=== PATIENT | female | born 1970 | race Caucasian/White ===

== ENCOUNTER → 2016-07-11 | Outpatient (CLI) | payer BC ==
--- NOTE | 2016-07-12 08:41 | REP ---
MR CERVICAL SPINE WITHOUT CONTRAST: HISTORY: Neck pain. A disc bulge is present at the C3-4 level. There is mild effacement of the thecal sac without spinal cord compression. The C3 neural foramina are patent. A small central disc protrusion is present at the C4-5 level. There is minimal effacement of the thecal sac without spinal cord compression. The C4 neural foramina are patent. A disc bulge and small left paracentral disc protrusion with associated osteophyte formation are present at the C5-6 level. There is minimal spinal cord compression. Uncinate process hypertrophy is present on the left. There is moderate narrowing of the left C5 neural foramen. The right C5 neural foramen is patent. A disc bulge and small left paracentral disc protrusion with associated osteophyte formation are present at the C6-7 level. There is minimal spinal cord compression. Bilateral uncinate process hypertrophy is present. This produces minimal and moderate narrowing of the right and left C6 neural foramina respectfully. There is no other disc bulge or herniation. The remaining neural foramina are patent. The spinal cord is normal in signal intensity. There is no intradural extramedullary lesion. The C5-6 and C6-7 intervertebral discs are decreased in height consistent with disc degeneration. Normal signal intensity is present in the cervical vertebral bodies. There is loss of a normal lordotic curve. IMPRESSION: There is cervical spondylosis at the C3-4 through C6-7 levels most significant at the C5-6 and C6-7 levels where there is minimal spinal cord compression. Signed by Terrence Nicole MD 07/12/2016 08:35 A
== END ==
LOC: M RAD 17:33
PROVIDERS: ATTEND Physician Assistant Surgical
DX: M47.22 Other spondylosis with radiculopathy, cervical region (principal)
CPT/HCPCS: 72156; A9576

== ENCOUNTER → 2016-08-22 | Outpatient (CLI) | payer BC ==
--- NOTE | 2016-08-22 11:37 | REP ---
Chest two views HISTORY: Cervical stenosis Comparison: 12/22/2015 The lungs are clear. The heart is normal in size. The pulmonary vasculature is normal in appearance. The bony structure is intact. IMPRESSION: No acute disease. Signed by Terrence Nicole MD 08/22/2016 11:29 A
== END ==
LOC: M RAD 11:07
PROVIDERS: ATTEND Orthopaedic Surgery
DX: Z01.818 Encounter for other preprocedural examination (principal); M48.02 Spinal stenosis, cervical region

== ENCOUNTER → 2016-08-24 | Outpatient (REF) | payer BC ==
[~2016-08-24] MED LIST: ASPI1TAB24 PO; CYCL10TA PO; DIFL200T PO; FISH120012 PO; HYDR200T3 PO; MONT10TA2 PO; NIFE10CA2 PO; OMEP40CA2 PO; RANI1TAB6 PO; SULF500T2 PO
[2016-08-24 17:34] LABS: INR 0.95
[2016-08-24 18:02] LABS: ALBUMIN 3.4 GM/DL (3.2-5.2); ALBUMIN/GLOBULIN RATIO 0.92 (1.00-1.93); ALKALINE PHOSPHATASE 84 U/L (45-117); ALT/SGPT 41 U/L (12-78); ANION GAP 7 MEQ/L (8-16); AST/SGOT 17 U/L (15-37); BILIRUBIN,TOTAL 0.3 MG/DL (0.2-1.0); BLOOD UREA NITROGEN 17 MG/DL (7-18); CALCIUM LEVEL 8.9 MG/DL (8.5-10.1); CARBON DIOXIDE LEVEL 27 MEQ/L (21-32); CHLORIDE LEVEL 108 MEQ/L (98-107); CREATININE FOR GFR 0.84 MG/DL (0.55-1.02); GLOMERULAR FILTRATION RATE > 60.0 (>58); GLUCOSE, FASTING 101 MG/DL (70-105); POTASSIUM SERUM 4.1 MEQ/L (3.5-5.1); SODIUM LEVEL 142 MEQ/L (136-145); TOTAL PROTEIN 7.1 GM/DL (6.4-8.2)
[2016-08-24 18:29] LABS: BASO % 0.5 % (0.0-1.0); EOS # 0.3 K/mm3 (0.0-0.50); EOS % 2.9 % (0.0-3.0); LARGE UNSTAINED CELL # 0.2 K/mm3 (0.0-0.4); LARGE UNSTAINED CELL % 1.9 % (0.0-4.0); LYMPH # 2.6 K/mm3 (1.5-4.5); LYMPH % 27.8 % (24.0-44.0); MEAN CORPUSCULAR HEMOGLOBIN 28.8 pg (27.0-33.0); MEAN CORPUSCULAR HGB CONC 31.4 g/dl (32.0-36.5); MEAN CORPUSCULAR VOLUME 91.6 fl (80.0-96.0); MONO # 0.5 K/mm3 (0.0-0.8); MONO % 5.4 % (0.0-5.0); NEUTROPHILS # 5.8 K/mm3 (1.8-7.7); NEUTROPHILS % 61.5 % (36.0-66.0); PLATELET COUNT, AUTOMATED 393 k/mm3 (150-450); RED CELL DISTRIBUTION WIDTH 13.5 % (11.5-14.5); WHITE BLOOD COUNT 9.4 K/mm3 (4.0-10.0)
== END ==
LOC: M SFHCPLAZ 15:36
PROVIDERS: ATTEND Family Medicine
DX: J45.30 Mild persistent asthma, uncomplicated (principal)

== ENCOUNTER 2016-09-11 05:44 | Inpatient (IN) | payer BC ==
--- NOTE | 2016-09-07 17:55 | HPE ---
DATE OF ADMISSION: 09/11/2016 ATTENDING PHYSICIAN: Dr. Kurt Rg ADMISSION DIAGNOSIS: Neck pain and pain radiating to her left upper extremity. HISTORY: This is a pleasant 46-year-old female patient with progressively worsening neck pain and pain radiating to her left upper extremity. She has failed to improve with conservative management to include anti-inflammatories, rest, activity modification and physical therapy. She continues to have symptoms with normal day-to-day activities. She has elected for surgery for her continued symptoms. She has consented for an anterior cervical decompression and fusion C5-6 and C6-[address] Rg. MRI is consistent with a left-sided stenosis at C5-6 and C6-7. X-rays notable for degenerative changes at C5-6 and C6-7. Medical optimization Dr. Mckeon. ALLERGIES: PENICILLIN. She also has cross sensitivity to CEPHALOSPORINS. CURRENT MEDICATIONS: - Singulair 10 mg one tablet once per day - aspirin 81 mg, she will discontinue that 5 days prior to surgery - Flonase 50 mcg one spray in each nostril as needed - Proventil 90 mcg as needed for shortness of breath - Advair 250/50 mcg one puff twice per day - Prilosec 40 mg once per day - Zantac 300 mg one tablet at bedtime - gabapentin 300 mg one tablet twice a day - fluconazole 100 mg two tablets once per week Medical conditions include cervical spinal stenosis, left upper extremity radiculopathy, seasonal allergies, gastric reflux disease. SOCIAL HISTORY: She does not smoke. 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 She uses alcohol on occasional basis. FAMILY HISTORY: Noncontributory. REVIEW OF SYSTEMS: Denies fever or chills. Denies chest pain, shortness of breath or cough. Denies difficulty breathing. Denies abdominal pain. Denies nausea or vomiting. Denies recent upper respiratory infection (URI) or urinary tract infection (UTI) symptoms. Notes persistent pain in her neck and radiates into her left upper extremity. Denies nausea or vomiting. Denies change in her bowel or bladder habits. PHYSICAL EXAMINATION: Today: Reveals an alert, well-nourished, well-developed female patient. She walks with a normal gait. Her gait is not wide-based. She does not use assistive devices. Her mood and affect are appropriate for situation. Spurling's is positive with increased symptoms to the left upper extremity. Neck is supple without adenopathy or jugular venous distention (JVD). There is some diffuse tenderness along the left lateral border on examination today. Deep tendon reflexes are 2 at the biceps bilaterally, 1 at the right triceps, trace at the left triceps, trace at the right brachial radialis, 2 at the left brachial radialis. Lungs are clear to auscultation without rales or wheeze. Heart regular rate and rhythm. Abdomen: Bowel sounds are present. Current vital signs: Height 5.7, weight 317 pounds, body mass index (BMI) 46.5, temperature 98.0, blood pressure 110/84, pulse 78, respirations 16. LABORATORY DATA: WBC count 9.4, hemoglobin 13.2, hematocrit 42.1, glucose 101, BUN 17, creatinine 0.64, sodium 142, potassium 4.1, PT 12.6, INR 0.96. Chest x-ray, no acute cardiopulmonary disease process noted. EKG has sinus tachycardia. IMPRESSION: Cervical spinal stenosis C5-6, C6-7 as well as left upper extremity radiculopathy that are symptomatic. PLAN: Consented for an anterior cervical decompression and fusion C5-6 and C6-7 using VG2 graft SKYLINE plate. We will use clindamycin 600 mg IV concession worker to the operating room (OR) due to her penicillin reaction and her cross sensitivity to cephalosporins.
[~2016-09-11] VITALS: Ht 172.7 cm; Wt 144.0 kg
[2016-09-11] MEDS ORDERED: CLINDAMYCIN 600 MG in APPROPRIATE DILUENT 1 EA IV ONE (06:00)
[2016-09-11] MEDS ORDERED: LR 1,000 ML IV SCH ×3 (06:00→12:00)
[2016-09-11] MEDS ORDERED: PERCOCET 5MG/325MG TAB PO ONE (06:00)
[2016-09-11] MEDS ORDERED: THROMBIN SOLN 20,000 UNITS KIT As Ordered ONE (07:10)
[2016-09-11] MEDS ORDERED: BUPIVACAINE/EPIN 0.25% 30 ML VIAL As Ordered ONE (07:10)
[2016-09-11] MEDS ORDERED: methylPREDNISolone 500 MG VIAL (J2930) As Ordered ONE (07:10)
[2016-09-11] MEDS ORDERED: LIDOCAINE W/EPINEPHRINE 1% 20ML VIAL As Ordered ONE (07:10)
[2016-09-11] MEDS ORDERED: BACITRACIN PWD 50,000 UNITS VIAL As Ordered ONE ×2 (07:11→07:19)
[2016-09-11] MEDS ORDERED: MIDAZOLAM INJ 2 MG/2 ML VIAL (J2250) As Ordered ONE (08:58)
[2016-09-11] MEDS ORDERED: LIDOCAINE 2% INJ 100 MG/5 ML SDV (FOR ANES.) As Ordered ONE (08:58)
[2016-09-11] MEDS ORDERED: fentaNYL 250 MCG/5 ML INJECTION (J3010) As Ordered ONE (08:58)
[2016-09-11] MEDS ORDERED: dexameTHASONE 4 MG/ML 1ML VIAL (J1100) As Ordered ONE (08:58)
[2016-09-11] MEDS ORDERED: ROCURONIUM BROMIDE 50 MG/5 ML VIAL As Ordered ONE (08:59)
[2016-09-11] MEDS ORDERED: PROPOFOL 200 MG/20 ML VIAL As Ordered ONE ×2 (08:59→10:53)
[2016-09-11] MEDS ORDERED: NEOSTIGMINE 1MG/ML 5 ML SYRINGE (J2710) As Ordered ONE (08:59)
[2016-09-11] MEDS ORDERED: GLYCOPYRROLATE INJ 0.2 MG/ML 2 ML VIAL As Ordered ONE (08:59)
[2016-09-11] MEDS ORDERED: ONDANSETRON 4MG/2ML VIAL (J2405) As Ordered ONE (08:59)
[2016-09-11] MEDS ORDERED: PREGABALIN 75 MG CAP(LYRICA) PO SCH (09:00)
[2016-09-11] MEDS: DOCUSATE SODIUM 100 MG CAP PO SCH ×2 (09:00→20:18)
[2016-09-11] MEDS ORDERED: fentaNYL 100 MCG/2 ML INJECTION (J3010) As Ordered ONE (09:02)
[2016-09-11] MEDS ORDERED: HYDROmorphone HCL 2 MG/ML 1ML VIAL (J1170) As Ordered ONE (09:57)
[2016-09-11] MEDS ORDERED: ePHEDrine SULFATE 25 MG/5 ML(5MG/ML) SYRINGE As Ordered ONE (10:23)
[2016-09-11] MEDS ORDERED: METOCLOPRAMIDE INJ 10MG/2ML VIAL (J2765) As Ordered ONE (11:16)
--- NOTE | 2016-09-11 11:42 | REP ---
CERVICAL SPINE SERIES: THREE VIEWS. LIMITED STUDY. INTRAOPERATIVE FILMS. HISTORY: Cervical spondylosis. FINDINGS: A sequence of three intraoperative, portably-obtained cross-table lateral views of the cervical spine are presented time stamped 0901, 1042, and 1100 hours. The 0901 film demonstrates an orotracheal tube in place and an intraoperative probe at the level of the anterior margin of the C5-6 disc space. The 10:42 a.m. film shows the orotracheal tube. A ventral fusion plate is just barely visualized along the anterior to the C-spine at C5 to C6, although the caudal margin of the plate cannot be resolved due to penetration issues. The 11:00 a.m. film again demonstrates this fusion plate, again less than optimally. Signed by Baldemar Rosado MD 09/11/2016 11:52 A
[2016-09-11] MEDS ORDERED: METOCLOPRAMIDE INJ 10MG/2ML VIAL (J2765) IV PRN (12:00)
[2016-09-11] MEDS ORDERED: fentaNYL 100 MCG/2 ML INJECTION (J3010) IV PRN (12:00)
[2016-09-11] MEDS ORDERED: CLINDAMYCIN 600 MG in APPROPRIATE DILUENT 1 EA IV SCH (12:00)
[2016-09-11] MEDS ORDERED: PERCOCET 5MG/325MG TAB PO PRN ×3 (12:00→12:15)
[2016-09-11] MEDS ORDERED: HYDROmorphone HCL 1 MG/ML SYRINGE (J1170) IV PRN ×2 (12:00→12:15)
[2016-09-11] MEDS ORDERED: ONDANSETRON 4MG/2ML VIAL (J2405) IV PRN (12:00)
[2016-09-11] MEDS ORDERED: PROMETHAZINE INJ 25 MG/ML VIAL (J2550) IV PRN (12:15)
[2016-09-11] MEDS: D5W/LR 1,000 ML IV SCH ×2 (12:15→22:15)
--- NOTE | 2016-09-11 15:09 | REP ---
CERVICAL SPINE TWO VIEWS: 09/11/2016 CLINICAL HISTORY: Postoperative from C5 through C7 anterior cervical discectomy and fusion. COMPARISON: Intraoperative cross-table lateral earlier today. The portable view shows anterior plate and screws from C5 through C7. Alignment is normal. C4-5 and above disc spaces are intact. Signed by Fredy Pelaez MD 09/11/2016 05:21 P
[2016-09-11 15:30] VITALS: BP 141/71
[2016-09-11 16:00] VITALS: BP 136/71
[2016-09-11 17:00] VITALS: BP 143/82
[2016-09-11 18:00] VITALS: BP 124/58
[2016-09-11] MEDS: CLINDAMYCIN 600 MG in APPROPRIATE DILUENT 1 EA IV SCH ×3 (18:00→23:17)
--- NOTE | 2016-09-11 18:56 | REP ---
Cervical spine series: Three views: History: Postop evaluation. Comparison is made with films done earlier this date. Findings: The patient is status post ventral discectomy and fusion plating across the C5-6 and C6-7 disc spaces. Intervertebral disc grafts are seen at these two disc spaces. Alignment is normal with some straightening. Mild prevertebral soft tissue swelling is seen. Impression: Status post ventral discectomy and fusion plating C5 through C7. Signed by Baldemar Rosado MD 09/11/2016 07:38 P
[2016-09-11 19:00] VITALS: BP 134/74
[2016-09-11 20:00] VITALS: BP 143/73
[2016-09-11] MEDS: ASCORBIC ACID 500 MG TAB PO SCH (20:18)
[2016-09-12] VITALS: BP 140/76
[2016-09-12 04:00] VITALS: BP 143/65
[2016-09-12] MEDS ORDERED: IBUPROFEN 800 MG TAB PO PRN (07:00)
[2016-09-12] MEDS ORDERED: ACETAMINOPH W/CODEINE #3 TAB UD PO PRN (07:00)
[2016-09-12] MEDS: D5W/LR 1,000 ML IV SCH (08:15)
[2016-09-12] MEDS: DOCUSATE SODIUM 100 MG CAP PO SCH (09:20)
[2016-09-12] MEDS: ASCORBIC ACID 500 MG TAB PO SCH (09:20)
--- NOTE | 2016-09-13 07:13 | RO ---
DATE OF PROCEDURE: 09/11/2016 PREOPERATIVE DIAGNOSIS: Left upper extremity radiculopathy and axial neck discomfort secondary to degenerative bulging discs at C5-6 and C6-7. POSTOPERATIVE DIAGNOSIS: Left upper extremity radiculopathy and axial neck discomfort secondary to degenerative bulging discs at C5-6 and C6-7. PROCEDURE PERFORMED: Anterior cervical decompression and fusion procedure at C5-6 including end plate preparation decompression of thecal sac and exiting nerve root and application of graft material, anterior cervical decompression and fusion procedure at C6-7 additional level, use of donor structural allograft for spine surgery C5-6 and C6-7, application of anterior cervical instrumentation C5, C6, C7. SURGEON: Dr. Kurt Rg SCRUB WOMAN: Bala Soliz, HARMEET ANESTHESIA: General endotracheal. ESTIMATED BLOOD LOSS: Less than 40 mL replaced with crystalloid. No complications. INDICATIONS: Left upper extremity radiculopathy and neck pain, MRI evidence of spinal stenosis and left-sided disc bulges at C5-6 and C6-7. The patient has elected to proceed with surgery. Consent reviewed in detail including a lashell discussion of the procedure proposed, alternatives including doing nothing and risks including, but not limited to, pain, failure, paralysis, swallowing trouble, hoarseness, infection, need for more surgery and other issues. The patient agrees to proceed. COMPONENTS USED: Include DePuy [place] plate system 32 mm plate, 14 mm screws, VG2 structural allograft size 4 x 6 lordotic graft. OPERATIVE COURSE: Identified in the holding area. Site and side verified. Brought to the operating room. General endotracheal anesthesia was administered. She was positioned for exposure of the cervical spine for anterior cervical decompression and fusion. The approach was a right-sided approach. Positioning this patient took significant additional manpower and time since the patient's body mass index is significantly elevated. The incision was approximately three fingerbreadths long, outlined with a marking pen and infiltrated with 1/4% Marcaine with epinephrine once the yield clerk and I were comfortable with the patient's positioning and she was sterilely prepped and draped. Next, the procedure was accomplished using 3.5 loupe magnification and a headlamp. Mr. Phillips stood on the patient's left side. I stood on the patient's right side. The incision was made with a 10 blade and developed down through skin and subcuticular tissues to the platysma. The platysma was elevated and exposed and then divided perpendicular to its fibers allowing exposure of the sternocleidomastoid and omohyoid muscle. Bipolar cautery was utilized for hemostasis. The dissection continued. The omohyoid muscle was divided using the bipolar cautery as well as tenotomy scissor. Dissection continued. The carotid sheath was identified and protected. The dissection continued down to the prevertebral fascia which was elevated exposing the prevertebral area and longus coli muscles. Next, a bayonet spinal needle was placed at C5-6 to collins our position and a cross-table lateral was obtained to verify level. Next, C5-6 through C6-7 were further exposed elevating the medial border of the longus coli muscle. Distraction pins were placed across the C5-6 level and the Shadow-Line retractor was installed. The annulus was opened with an 11 blade knife. Disc material was removed. Dissection continued down to the posterior longitudinal ligament (PLL). Curved curettes were utilized to remove cartilaginous end plates and the oval bur was then utilized to debride endplate and through the uncinate processes down to the PLL. The end plate was squared. Next, I elevated the PLL with a 4.0 Dianna curette and then I removed PLL using #2 Kerrison punch. The left uncinate process was further debrided. The foraminotomy was accomplished on the left side. Next, irrigation was accomplished. Hemostasis was accomplished. Next, rasp 4 x 6 was utilized and then we placed a size 4 x 6 VG2 structural graft. It was tamped into place. Next, the 6-7 level was approached in a similar fashion including distraction pins and moving the traction inferiorly. The C6-7 level had a larger than expected disc extrusion with seemed to be subligamentous to the PLL. The PLL was removed at the C6-7 level as well. End plates were similarly prepared using the rasp, followed by placement of the 4 x 6 structural graft. Next, once this was accomplished, the intervertebral area was prepared. This included removing distraction pins, plugging holes with wax, contouring anterior osteophytes to receive the plate, application of the 32 mm plate, which was screwed and then drilled with 14 mm self-tapping screws. Next, the screws were locked into place. We obtained a cross-table lateral x-ray which only revealed the C5 level because of the patient's significant body habitus. We also later tried a lateral x-ray in the recovery room and again we were unable to get an adequate x-ray of the plate. Next, while still in the room, the wound was irrigated. We closed the platysma and deep dermis followed by Dermabond on skin. The patient was placed in a cervical collar and moved to the hospital bed moving all four extremities and moved to the recovery room. Again, we tried the second cross table lateral x-ray in the recovery room and were unable to get it there and planned on getting that x-ray in the department after the patient had been returned to the orthopedic floor. Next, the patient was noted to be moving all four extremities in the recovery room. For further details, please refer to the medical record. Please note, Mr. Phillips was present and participated in the entirety of the case.
--- NOTE | 2016-09-14 09:26 | DSES ---
DATE OF ADMISSION: 09/11/2016 DATE OF ADMISSION: 09/12/2016 ADMITTING DIAGNOSIS: Cervicalgia with left upper extremity radicular symptoms. HISTORY OF PRESENT ILLNESS: This is a pleasant female with continuing neck pain and left arm radicular symptoms. The patient has failed conservative management, which included nonsteroidal anti-inflammatory drugs, rest, activity modification and physiotherapy. The patient has elected for surgery secondary to these symptoms. She has consented for anterior cervical decompression and fusion at C5-6 and C6-[address] Kurt Rg. MRI imaging was consistent with left-sided stenosis at C5-C6 and C6-C7. Degenerative changes also noted at these levels. Medically, she was optimized by Dr. Mckeon. OPERATION PERFORMED: Anterior cervical decompression and fusion at C5-C6 including endplate preparation, decompression of the thecal sac and exiting nerve root with application of graft material, anterior cervical decompression and fusion at C6-7 level with use of donor structural allograft for spine surgery C5-C6, C6-C7, application of anterior cervical instrumentation C5, C6, C7. HOSPITAL COURSE: The patient underwent anterior cervical decompression and fusion under general anesthesia and was returned to recovery comfortable. Our hospital team felt comfortable discharging the patient on 09/12/2016 with the following instructions: 1. Bern J collar application and spine protocol per Dr. Kurt Rg. 2. No carrying or lifting in the upper extremities. 3. Thromboembolic deterrent (DELIO) stockings about the lower extremities. 4. Percocet as needed, pain. 5. Diet as regular. 6. The patient will followup in our office in 10-12 days' time for wound check and Monocryl suture removal. 7. The patient is encouraged to contact our office prior followup with increased pain, redness, drainage about the surgical site, numbness, tingling, weakness about the upper or lower extremities, fever greater than 101 or further concerns.
== END 2016-09-12 10:25 | disposition home or self-care (01) | DRG 321 ==
LOC: M OR 05:44 → M MS5PR 15:20
PROVIDERS: ADMIT Orthopaedic Surgery; ATTEND Orthopaedic Surgery
PROC: 0RB30ZZ Excision of Cervical Vertebral Disc, Open Approach (ICD-10-PCS; 2016-09-11)
PROC: 01N10ZZ Release Cervical Nerve, Open Approach (ICD-10-PCS; 2016-09-11)
PROC: 0RG20A0 Fusion of 2 or more Cervical Vertebral Joints with Interbody Fusion Device, Anterior Approach, Anterior Column, Open Approach (ICD-10-PCS; principal; 2016-09-11 07:30)
DX: M50.90 Cervical disc disorder, unspecified, unspecified cervical region (principal)

== ENCOUNTER → 2016-11-03 | Outpatient (REF) | payer BC | LOC: M SFHCLACO 15:35 | PROVIDERS: ATTEND Physician Assistant | DX: D48.5 Neoplasm of uncertain behavior of skin (principal) ==

== ENCOUNTER → 2017-01-22 | Outpatient (CLI) | payer BC ==
[~2017-01-22] MED LIST changes: +ASPI-161 PO; -ASPI1TAB24 PO
--- NOTE | 2017-01-26 22:43 | SLEEPHOME ---
DATE OF PROCEDURE: 01/22/2017 ORDERED BY: Shannan Valdez Diagnostic home sleep testing was performed due to concern for the obstructive sleep apnea syndrome in this patient with a history of snoring and excessive somnolence. For testing, a NOX-T3 respiratory monitoring device was used. Continuous record was made of pulse, oxygen saturation, air flow, chest and abdominal strain and body position. 10 hours and 59 minutes of data were reviewed. There were 9 hours and 31 minutes identified as time in bed. During the interval marked time in bed, there were 257 respiratory events identified of 10 seconds in duration or greater for a respiratory event index of 27. The patient's pulse ox probe was dislodged and, therefore, pulse rate and oximetric data are not available. Testing was performed in both the supine and nonsupine position. IMPRESSION: Abnormal home sleep testing with repetitive respiratory events and a respiratory event index of 27.0 is consistent with obstructive sleep apnea syndrome. RECOMMENDATION: The patient should be encouraged to undergo a formal sleep evaluation and in laboratory pressure titration. Copy To: Ofe Encinas (Bakari or Kemi Cline)
== END ==
LOC: M SLEEP HO 09:55
PROVIDERS: ATTEND Nurse Practitioner Adult Health
DX: G47.30 Sleep apnea, unspecified (principal)

== ENCOUNTER 2017-05-17 08:35 | Emergency (ER) | payer BC ==
[~2017-05-17] VITALS: Ht 172.7 cm; Wt 155.9 kg
[2017-05-17] MEDS ORDERED: NEUR300C PO (09:00)
[2017-05-17] MEDS ORDERED: NEUR600T PO (09:00)
[2017-05-17] MEDS ORDERED: VITA100067 PO (09:00)
[2017-05-17 09:38] LABS: BASO % 0.4 % (0.0-1.0); EOS # 0.2 10^3/uL (0.0-0.50); EOS % 2.1 % (0.0-3.0); IMMATURE GRANULOCYTE % 0.3 % (0-0); LYMPH # 2.4 10^3/uL (1.5-4.5); LYMPH % 26.3 % (24.0-44.0); MEAN CORPUSCULAR HGB CONC 32.2 g/dl (32.0-36.5); MEAN CORPUSCULAR VOLUME 90.1 fl (80.0-96.0); MONO # 0.6 10^3/uL (0.0-0.8); MONO % 6.4 % (0.0-5.0); NEUTROPHILS % 64.5 % (36.0-66.0); PLATELET COUNT, AUTOMATED 399 10^3/uL (150-450); RED CELL DISTRIBUTION WIDTH 14.2 % (11.5-14.5); WHITE BLOOD COUNT 9.3 10^3/uL (4.0-10.0)
--- NOTE | 2017-05-17 09:41 | REP ---
Portable chest, 09:27 a.m., single AP view, patient sitting: Comparison is the PA and lateral chest dated 08/22/2016. The lung nuñez are clear. The cardiac size is normal. The fausto, mediastinum, and bony thorax are unremarkable. Impression: Negative portable chest. There is no interval change. Signed by Ruy Swenson MD 05/17/2017 09:33 A
[2017-05-17 10:00] LABS: ANION GAP 9 MEQ/L (8-16); BLOOD UREA NITROGEN 13 MG/DL (7-18); CALCIUM LEVEL 8.9 MG/DL (8.5-10.1); CARBON DIOXIDE LEVEL 23 MEQ/L (21-32); CHLORIDE LEVEL 106 MEQ/L (98-107); CREATININE FOR GFR 0.77 MG/DL (0.55-1.02); GLOMERULAR FILTRATION RATE > 60.0 (>58); GLUCOSE, FASTING 133 MG/DL (70-105); MAGNESIUM LEVEL 2.2 MG/DL (1.8-2.4); POTASSIUM SERUM 4.4 MEQ/L (3.5-5.1); SODIUM LEVEL 138 MEQ/L (136-145)
--- NOTE | 2017-05-17 10:32 | REP ---
CT brain without contrast: History: Altered level of consciousness. No comparison studies. Findings: Preliminary manager progressive care view is unremarkable. Bone window settings demonstrate an intact bony calvarium. No skull fracture or bony destructive lesion is seen. Visualized paranasal sinuses are clear. No intraorbital abnormality is appreciated. On soft tissue window settings, the lateral, third, fourth ventricles are normal in size and position. Taylor-white differentiation pattern is normal above and below the tentorium. There is no evidence of intracranial hemorrhage. No mass, infarction, extra-axial fluid collection or midline shift is seen. Impression: Negative noncontrast brain CT. Signed by Baldemar Rosado MD 05/17/2017 10:58 A
[2017-05-17 11:44] LABS: METHADONE URINE NEGATIVE (NEGATIVE)
[2017-05-17 17:02] VITALS: BP 155/90
--- NOTE | 2017-05-17 19:59 | ECGEPIP ---
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
== END 2017-05-17 17:04 | disposition home or self-care (01) ==
LOC: M ED 08:35
DX: R53.83 Other fatigue (principal); G47.10 Hypersomnia, unspecified; G47.30 Sleep apnea, unspecified; K21.9 Gastro-esophageal reflux disease without esophagitis; Z79.899 Other long term (current) drug therapy; Z79.82 Long term (current) use of aspirin; Z88.0 Allergy status to penicillin

== ENCOUNTER 2017-06-21 19:22 | Outpatient (CLI) | payer BC ==
[2017-06-29 08:21] LABS: SUMMARY SEE SEPARATE REPORT
== END 2017-06-22 14:00 | disposition home or self-care (01) ==
LOC: M SLEEP 19:22
DX: G47.33 Obstructive sleep apnea (adult) (pediatric) (principal)
CPT/HCPCS: 95811

== ENCOUNTER → 2017-11-23 | Outpatient (REF) | payer BC ==
[2017-11-23 18:29] LABS: MAGNESIUM LEVEL 1.6 MG/DL (1.8-2.4)
[2017-11-23 18:38] LABS: ESTIMATED AVERAGE GLUCOSE 324 MG/DL (60-110); HEMOGLOBIN A1c 12.9 %
[2017-11-23 18:41] LABS: ALBUMIN 3.2 GM/DL (3.2-5.2); ALBUMIN/GLOBULIN RATIO 0.82 (1.00-1.93); ALKALINE PHOSPHATASE 91 U/L (45-117); ALT/SGPT 109 U/L (12-78); ANION GAP 10 MEQ/L (8-16); AST/SGOT 56 U/L (7-37); BILIRUBIN,TOTAL 0.5 MG/DL (0.2-1.0); BLOOD UREA NITROGEN 16 MG/DL (7-18); CALCIUM LEVEL 8.5 MG/DL (8.5-10.1); CARBON DIOXIDE LEVEL 24 MEQ/L (21-32); CHLORIDE LEVEL 105 MEQ/L (98-107); CHOLESTEROL LEVEL 126 MG/DL (<200); CHOLESTEROL RISK RATIO 4.846 (<5); CREATININE FOR GFR 0.64 MG/DL (0.55-1.30); GLOMERULAR FILTRATION RATE > 60.0 (>58); GLUCOSE, FASTING 269 MG/DL (70-100); HDL CHOLESTEROL 26 MG/DL (>40); LDL CHOLESTEROL 80.4 MG/DL (<100); NON-HDL-C 100 MG/DL; POTASSIUM SERUM 4.3 MEQ/L (3.5-5.1); SODIUM LEVEL 139 MEQ/L (136-145); TOTAL PROTEIN 7.1 GM/DL (6.4-8.2); TRIGLYCERIDES LEVEL 98 MG/DL (<150)
== END ==
LOC: M SFHCLACO 09:31
DX: R81 Glycosuria (principal)
CPT/HCPCS: 83735

== ENCOUNTER 2018-09-01 15:22 | Emergency (ER) | payer BC ==
[~2018-09-01] VITALS: Ht 172.7 cm; Wt 118.2 kg
[~2018-09-01 15:22] MED LIST changes: +NEUR300C PO; +NEUR600T PO; +VITA100067 PO
[2018-09-01] MEDS ORDERED: NS 1,000 ML IV ONE (16:00)
[2018-09-01] MEDS ORDERED: KETOROLAC 30 MG/ML VIAL (J1885) IV ONE (16:00)
[2018-09-01 16:31] LABS: BASO % 0.2 % (0.0-1.0); EOS # 0.2 10^3/uL (0.0-0.50); EOS % 1.8 % (0.0-3.0); HEMATOCRIT 42.9 % (36.0-47.0); LYMPH # 3.1 10^3/uL (1.5-4.5); LYMPH % 24.4 % (24.0-44.0); MEAN CORPUSCULAR HEMOGLOBIN 29.8 pg (27.0-33.0); MEAN CORPUSCULAR HGB CONC 32.6 g/dl (32.0-36.5); MEAN CORPUSCULAR VOLUME 91.3 fl (80.0-96.0); MONO # 0.6 10^3/uL (0.0-0.8); NEUTROPHILS # 8.7 10^3/uL (1.8-7.7); NEUTROPHILS % 68.1 % (36.0-66.0); PLATELET COUNT, AUTOMATED 387 10^3/uL (150-450); WHITE BLOOD COUNT 12.8 10^3/uL (4.0-10.0)
[2018-09-01] MEDS ORDERED: MAGN400C2 PO (16:39)
[2018-09-01] MEDS ORDERED: METF500T13 (16:39)
[2018-09-01 17:09] LABS: ALBUMIN 3.2 GM/DL (3.2-5.2); ALT/SGPT 47 U/L (12-78); BILIRUBIN,DIRECT < 0.1 MG/DL (0.0-0.2); BILIRUBIN,TOTAL 0.3 MG/DL (0.2-1.0); BLOOD UREA NITROGEN 19 MG/DL (7-18); CALCIUM LEVEL 9.1 MG/DL (8.5-10.1); CARBON DIOXIDE LEVEL 23 MEQ/L (21-32); CHLORIDE LEVEL 109 MEQ/L (98-107); CREATININE FOR GFR 0.87 MG/DL (0.55-1.30); GLOMERULAR FILTRATION RATE > 60.0 (>51); GLUCOSE, FASTING 136 MG/DL (70-100); LIPASE 151 U/L (73-393); SODIUM LEVEL 141 MEQ/L (136-145); TOTAL PROTEIN 7.5 GM/DL (6.4-8.2)
[2018-09-01] MEDS ORDERED: ISOVUE-370 76% 125ML VIAL (Q9967 PER ML) As Ordered ONE (17:40)
--- NOTE | 2018-09-01 18:24 | REP ---
Clinical: Acute right lower quadrant pain. Technique: Axial contrast enhanced images from the lung bases to the pubic symphysis using 100 ml Isovue 370 intravenous contrast material with coronal and sagittal re-formations. Comparison: 10/28/2014. Findings: Evaluation of the enteric system demonstrates a large right lower anterior pelvic ventral hernia containing multiple loops of nonobstructed small bowel and mesenteric fat. There is no evidence for bowel obstruction. Diffuse mild fecal stasis is appreciated. The cecum and terminal ileum are identified and normal. The appendix is not definitively visualized but no inflammatory changes are appreciated to suggest acute appendicitis. Diffuse fatty infiltration to the liver noted without focal hepatic lesion. Spleen, pancreas, bilateral adrenal glands and kidneys are normal. Few small gallstones are identified without evidence for acute cholecystitis. Pelvis demonstrates normal bladder and evidence for prior hysterectomy. No ascites. No free air. No significant adenopathy. Abdominal aorta without aneurysm or dissection. Musculoskeletal structures demonstrate degenerative changes without focal osseous abnormality. Lung bases are clear. Impression: 1. Large ventral hernia in the anterior right lower pelvis containing mesenteric fat and multiple loops of nonobstructed small bowel. 2. Mild fecal stasis and scattered colonic diverticula without acute diverticulitis. No evidence for bowel obstruction. No free fluid, focal inflammatory stranding, or adenopathy. 3. Cholelithiasis without acute cholecystitis. 4. Hepatic steatosis. Electronically Signed by Israel Holguin MD 09/01/2018 06:16 P
[2018-09-01 19:40] VITALS: BP 131/76
== END 2018-09-01 19:41 | disposition home or self-care (01) ==
LOC: M ED 15:22
DX: K80.20 Calculus of gallbladder without cholecystitis without obstruction (principal); K43.9 Ventral hernia without obstruction or gangrene; K76.0 Fatty (change of) liver, not elsewhere classified; K57.30 Diverticulosis of large intestine without perforation or abscess without bleeding; E66.01 Morbid (severe) obesity due to excess calories; E11.9 Type 2 diabetes mellitus without complications; K21.9 Gastro-esophageal reflux disease without esophagitis; Z79.899 Other long term (current) drug therapy; Z79.82 Long term (current) use of aspirin; Z79.84 Long term (current) use of oral hypoglycemic drugs; Z88.0 Allergy status to penicillin; Z87.42 Personal history of other diseases of the female genital tract; Z87.891 Personal history of nicotine dependence; Z98.890 Other specified postprocedural states; Z80.41 Family history of malignant neoplasm of ovary
CPT/HCPCS: 36415; 74177; 80048; 80076; 81001; 83690; 85025; 96374; 99284; J1885; Q9967

== ENCOUNTER → 2019-06-23 | Outpatient (REF) | payer BC ==
[~2019-06-23] MED LIST changes: +MAGN400C2 PO; +METF500T13; -OMEP40CA2 PO; +OMEP40CA97 PO; +RANI-397 PO; -RANI1TAB6 PO
[2019-06-23 13:44] LABS: BASO # 0.1 10^3/uL (0.0-0.2); BASO % 0.5 % (0.0-1.0); EOS # 0.2 10^3/uL (0.0-0.5); EOS % 1.8 % (0.0-3.0); HEMATOCRIT 44.2 % (36.0-47.0); HEMOGLOBIN 14.2 g/dl (12.0-15.5); LYMPH # 2.8 10^3/uL (1.5-5.0); LYMPH % 25.4 % (24.0-44.0); MEAN CORPUSCULAR HEMOGLOBIN 30.2 pg (27.0-33.0); MEAN CORPUSCULAR HGB CONC 32.1 g/dl (32.0-36.5); MONO # 0.6 10^3/uL (0.0-0.8); MONO % 5.5 % (0.0-5.0); NEUTROPHILS # 7.4 10^3/uL (1.5-8.5); NEUTROPHILS % 66.4 % (36.0-66.0); PLATELET COUNT, AUTOMATED 362 10^3/uL (150-450); WHITE BLOOD COUNT 11.1 10^3/uL (4.0-10.0)
[2019-06-23 13:55] LABS: ALBUMIN 3.5 GM/DL (3.2-5.2); ALT/SGPT 32 U/L (12-78); BILIRUBIN,TOTAL 0.4 MG/DL (0.2-1.0); BLOOD UREA NITROGEN 19 MG/DL (7-18); CALCIUM LEVEL 9.2 MG/DL (8.5-10.1); CARBON DIOXIDE LEVEL 27 MEQ/L (21-32); CHLORIDE LEVEL 108 MEQ/L (98-107); CHOLESTEROL LEVEL 161 MG/DL (<200); CHOLESTEROL RISK RATIO 4.128 (<5); CREATININE FOR GFR 0.66 MG/DL (0.55-1.30); FREE T4 1.17 NG/DL (0.76-1.46); GLOMERULAR FILTRATION RATE > 60.0 (>51); GLUCOSE, FASTING 88 MG/DL (70-100); HDL CHOLESTEROL 39 MG/DL (>40); LDL CHOLESTEROL 103 MG/DL (<100); NON-HDL-C 122 MG/DL; POTASSIUM SERUM 4.2 MEQ/L (3.5-5.1); SODIUM LEVEL 141 MEQ/L (136-145); TOTAL PROTEIN 7.6 GM/DL (6.4-8.2); TRIGLYCERIDES LEVEL 95 MG/DL (<150)
[2019-06-23 14:42] LABS: HEMOGLOBIN A1c 5.9 %
[2019-06-23 15:29] LABS: INR 1.09; PARTIAL THROMBOPLASTIN TIME 29.5 SECONDS (25.0-38.4); PROTHROMBIN TIME 13.8 SECONDS (11.8-14.0)
== END ==
LOC: M SFHCPLAZ 11:37
PROVIDERS: ATTEND Family Medicine
DX: E11.65 Type 2 diabetes mellitus with hyperglycemia (principal)

== ENCOUNTER → 2019-09-17 | Outpatient (REF) | payer BC ==
[~2019-09-17] MED LIST changes: +CYCL-707 PO; -CYCL10TA PO; -MONT10TA2 PO; +MONT10TA4 PO
[2019-09-17 13:04] LABS: ALBUMIN 3.5 GM/DL (3.2-5.2); ALT/SGPT 24 U/L (12-78); BILIRUBIN,TOTAL 0.4 MG/DL (0.2-1.0); BLOOD UREA NITROGEN 24 MG/DL (7-18); CALCIUM LEVEL 9.6 MG/DL (8.5-10.1); CARBON DIOXIDE LEVEL 29 MEQ/L (21-32); CHLORIDE LEVEL 108 MEQ/L (98-107); CHOLESTEROL LEVEL 167 MG/DL (<200); CHOLESTEROL RISK RATIO 4.175 (<5); CREATININE FOR GFR 0.63 MG/DL (0.55-1.30); GLOMERULAR FILTRATION RATE > 60.0 (>51); GLUCOSE, FASTING 92 MG/DL (70-100); HDL CHOLESTEROL 40 MG/DL (>40); LDL CHOLESTEROL 110 MG/DL (<100); NON-HDL-C 127 MG/DL; POTASSIUM SERUM 4.3 MEQ/L (3.5-5.1); SODIUM LEVEL 141 MEQ/L (136-145); TOTAL PROTEIN 7.5 GM/DL (6.4-8.2); TRIGLYCERIDES LEVEL 84 MG/DL (<150)
[2019-09-17 13:16] LABS: HEMOGLOBIN A1c 5.6 %
== END ==
LOC: M LABDRWAD 12:18
PROVIDERS: ATTEND Physician Assistant
DX: E11.65 Type 2 diabetes mellitus with hyperglycemia (principal); E78.2 Mixed hyperlipidemia

== ENCOUNTER → 2019-11-01 | Outpatient (CLI) | payer BC ==
--- NOTE | 2019-11-10 10:34 | SLEEPCENT ---
DATE OF STUDY: 11/01/2019 ORDERED BY: Janey Jose Nocturnal polysomnography was performed for evaluation of sleep physiology in this patient with a history of prior obstructive sleep apnea syndrome who has comorbidities of diabetes and obesity. 7 hours and 25 minutes of data were reviewed. There were 389 minutes of sleep identified. Sleep latency was short at 6.5 minutes. REM latency was delayed at 107 minutes. Sleep architecture showed fragmentation. There were 2 REM cycles noted. Overall sleep efficiency was 88.2%. The patient's electrocardiogram showed a sinus rhythm with PVCs. Average heart rate 70 beats per minute. Electroencephalogram (EEG) showed normal waveforms for awake and sleep. There were 110 respiratory events identified of 10 seconds in duration or greater for an apnea-hypopnea index of 17. The events were not were obstructive, not exclusive to sleep stage nor body posture. Arousals from respiratory events occurred 3.9 times per hour and oxygen desaturations were seen into the 80s. There was some activity noted in the limb EMG leads, but limb movement arousal index was only 2.6. IMPRESSION: Obstructive sleep apnea (G47.33). Apnea-hypopnea index 17. RECOMMENDATION: The patient should be encouraged to return to the sleep disorder center for pressure therapy. In the interim, alcohol and sedative avoidance should be practiced and caution exercised during the operation of motor vehicles.
== END ==
LOC: M SLEEP 20:00
PROVIDERS: ATTEND Nurse Practitioner Family
DX: G47.33 Obstructive sleep apnea (adult) (pediatric) (principal)

== ENCOUNTER → 2019-11-12 | Outpatient (REF) | payer BC ==
[2019-11-12 13:28] LABS: ALBUMIN 3.4 GM/DL (3.2-5.2); ALT/SGPT 23 U/L (12-78); BILIRUBIN,TOTAL 0.5 MG/DL (0.2-1.0); BLOOD UREA NITROGEN 24 MG/DL (7-18); CALCIUM LEVEL 9.5 MG/DL (8.5-10.1); CARBON DIOXIDE LEVEL 28 MEQ/L (21-32); CHLORIDE LEVEL 108 MEQ/L (98-107); CHOLESTEROL LEVEL 164 MG/DL (<200); CHOLESTEROL RISK RATIO 4.685 (<5); CREATININE FOR GFR 0.64 MG/DL (0.55-1.30); GLOMERULAR FILTRATION RATE > 60.0 (>51); GLUCOSE, FASTING 93 MG/DL (70-100); HDL CHOLESTEROL 35 MG/DL (>40); LDL CHOLESTEROL 116 MG/DL (<100); NON-HDL-C 129 MG/DL; POTASSIUM SERUM 4.5 MEQ/L (3.5-5.1); SODIUM LEVEL 140 MEQ/L (136-145); TOTAL PROTEIN 7.4 GM/DL (6.4-8.2); TRIGLYCERIDES LEVEL 65 MG/DL (<150)
[2019-11-12 13:31] LABS: TOTAL 25(OH) VITAMIN D 53.6 NG/ML (30.0-100.0)
[2019-11-12 13:35] LABS: HEMOGLOBIN A1c 5.5 %
== END ==
LOC: M SFHCADAM 09:28
PROVIDERS: ATTEND Physician Assistant
DX: E11.65 Type 2 diabetes mellitus with hyperglycemia (principal); E78.2 Mixed hyperlipidemia

== ENCOUNTER 2020-01-05 19:13 | Emergency (ER) | payer BC | END 2020-01-05 21:15 | disposition home or self-care (01) | LOC: M ED 19:13 | DX: K43.9 Ventral hernia without obstruction or gangrene (principal); K21.9 Gastro-esophageal reflux disease without esophagitis; Z98.84 Bariatric surgery status; Z79.899 Other long term (current) drug therapy; Z88.0 Allergy status to penicillin ==

== ENCOUNTER → 2020-05-06 | Outpatient (REF) | payer BC ==
[~2020-05-06] MED LIST changes: -MONT10TA4 PO; +MONT5TAB2 PO
[2020-05-06 17:51] LABS: BASO % 0.4 % (0.0-1.0); EOS # 0.2 10^3/uL (0.0-0.5); EOS % 2.1 % (0.0-3.0); HEMATOCRIT 44.2 % (36.0-47.0); HEMOGLOBIN 14.3 g/dl (12.0-15.5); LYMPH # 2.9 10^3/uL (1.5-5.0); LYMPH % 26.5 % (24.0-44.0); MEAN CORPUSCULAR HEMOGLOBIN 30.6 pg (27.0-33.0); MEAN CORPUSCULAR HGB CONC 32.4 g/dl (32.0-36.5); MEAN CORPUSCULAR VOLUME 94.4 fl (80.0-96.0); MONO # 0.7 10^3/uL (0.0-0.8); NEUTROPHILS % 64.4 % (36.0-66.0); PLATELET COUNT, AUTOMATED 348 10^3/uL (150-450); RED BLOOD COUNT 4.68 10^6/uL (4.00-5.40); WHITE BLOOD COUNT 10.9 10^3/uL (4.0-10.0)
[2020-05-06 18:07] LABS: INR 1.06; PARTIAL THROMBOPLASTIN TIME 28.1 SECONDS (24.2-38.5)
[2020-05-06 18:58] LABS: ALBUMIN 3.4 GM/DL (3.2-5.2); ALT/SGPT 22 U/L (12-78); BILIRUBIN,TOTAL 0.2 MG/DL (0.2-1.0); BLOOD UREA NITROGEN 29 MG/DL (7-18); CALCIUM LEVEL 9.1 MG/DL (8.5-10.1); CARBON DIOXIDE LEVEL 25 MEQ/L (21-32); CHLORIDE LEVEL 112 MEQ/L (98-107); GLOMERULAR FILTRATION RATE > 60.0 (>51); GLUCOSE, FASTING 113 MG/DL (70-100); NT-PRO BNP 82 PG/ML (<125); POTASSIUM SERUM 3.9 MEQ/L (3.5-5.1); SODIUM LEVEL 143 MEQ/L (136-145); TOTAL PROTEIN 6.9 GM/DL (6.4-8.2)
== END ==
LOC: M SFHCPLAZ 15:50
PROVIDERS: ATTEND Family Medicine
DX: Z01.818 Encounter for other preprocedural examination (principal)

== ENCOUNTER 2020-09-01 08:22 | Inpatient (IN) | payer BC ==
[~2020-09-01] VITALS: Ht 172.7 cm; Wt 98.0 kg
[~2020-09-01 08:22] MED LIST changes: +MONT10TA10 PO; -MONT5TAB2 PO; +OMEP40CA4 PO; -OMEP40CA97 PO
--- NOTE | 2020-09-01 09:07 | REP ---
INDICATION: Coronavirus workup COMPARISON: 05/17/2017 TECHNIQUE: Portable AP view of the chest FINDINGS: The mediastinum and cardiac silhouette are stable and within normal limits for portable technique. The lung nuñez are clear without acute consolidation, effusion, or pneumothorax. Skeletal structures are intact. IMPRESSION: No acute cardiopulmonary process appreciated. No focal consolidations or airspace disease noted. <Electronically signed by Israel Holguin > 09/01/20 0904
[2020-09-01] MEDS ORDERED: FUSICAP PO (09:28)
[2020-09-01] MEDS ORDERED: FLUC100T PO (09:28)
[2020-09-01 09:29] LABS: BASO % 0.3 % (0.0-1.0); HEMATOCRIT 48.8 % (36.0-47.0); HEMOGLOBIN 16.2 g/dl (12.0-15.5); LYMPH # 0.9 10^3/uL (1.5-5.0); LYMPH % 12.2 % (24.0-44.0); MEAN CORPUSCULAR HEMOGLOBIN 30.1 pg (27.0-33.0); MEAN CORPUSCULAR HGB CONC 33.2 g/dl (32.0-36.5); MEAN CORPUSCULAR VOLUME 90.5 fl (80.0-96.0); MONO # 0.7 10^3/uL (0.0-0.8); MONO % 10.4 % (2.0-8.0); NEUTROPHILS # 5.3 10^3/uL (1.5-8.5); NEUTROPHILS % 76.7 % (36.0-66.0); PLATELET COUNT, AUTOMATED 323 10^3/uL (150-450); RED BLOOD COUNT 5.39 10^6/uL (4.00-5.40); WHITE BLOOD COUNT 6.9 10^3/uL (4.0-10.0)
[2020-09-01] MEDS ORDERED: ONDANSETRON 4MG/2ML VIAL As Ordered ONE (09:33)
[2020-09-01] MEDS ORDERED: MORPHINE 4 MG/ML 1ML VIAL/SYRINGE (J2270) As Ordered ONE (09:33)
[2020-09-01] MEDS ORDERED: ONDANSETRON 4MG/2ML VIAL IV ONE (09:35)
[2020-09-01] MEDS ORDERED: NS 1,000 ML IV SCH (09:35)
[2020-09-01 09:39] LABS: INR 0.96; PROTHROMBIN TIME 12.9 SECONDS (12.5-14.3)
[2020-09-01 09:40] LABS: PARTIAL THROMBOPLASTIN TIME 32.2 SECONDS (24.2-38.5)
[2020-09-01 09:42] LABS: D-DIMER QUANT 1173.97 ng/ml (<500)
[2020-09-01] MEDS: MORPHINE 4 MG/ML 1ML VIAL/SYRINGE (J2270) IV PRN ×3 (09:51→23:43)
[2020-09-01 10:04] LABS: ALBUMIN 3.8 GM/DL (3.2-5.2); ALT/SGPT 28 U/L (12-78); BILIRUBIN,TOTAL 0.5 MG/DL (0.2-1.0); BLOOD UREA NITROGEN 15 MG/DL (7-18); C REACTIVE PROTEIN QUANTITATIV 2.18 MG/DL (0.00-0.30); CALCIUM LEVEL 9.5 MG/DL (8.5-10.1); CARBON DIOXIDE LEVEL 23 MEQ/L (21-32); CHLORIDE LEVEL 104 MEQ/L (98-107); CK-MB VALUE MASS 1.2 NG/ML (<3.6); CPK CREATINE PHOSPHOKINASE 75 U/L (26-192); CREATININE FOR GFR 0.59 MG/DL (0.55-1.30); FERRITIN 115 NG/ML (8-252); GLOMERULAR FILTRATION RATE > 60.0 (>51); GLUCOSE, FASTING 131 MG/DL (70-100); LDH LACTATE DEHYDROGENASE 175 U/L (84-246); SODIUM LEVEL 135 MEQ/L (136-145); TOTAL PROTEIN 8.1 GM/DL (6.4-8.2); TROPONIN I < 0.02 NG/ML (< 0.10)
[2020-09-01] MEDS ORDERED: ISOVUE-370 76% 100ML VIAL As Ordered ONE (11:26)
--- NOTE | 2020-09-01 12:25 | REP ---
INDICATION: RLQ pain, vomiting, gastric sleeve, COVID pos COMPARISON: None. TECHNIQUE: CT Scan of the abdomen and pelvis was performed with intravenous administration of 100 cc of Isovue 370, without oral contrast. Sagittal and coronal reconstruction images are performed. FINDINGS: Lung bases: Unremarkable. Liver: There is diffuse fatty infiltration of the liver. Gallbladder: Unremarkable. Spleen: Normal. Adrenals: Normal. Pancreas: Normal. Kidneys: Normal. Small and large bowel: There is an anterior abdominal wall hernia quite inferiorly extending toward the right, containing inflamed fat, moderately dilated small bowel and collapsed small bowel, with an abrupt small bowel transition point noted compatible with small bowel obstruction. Incarceration and strangulation cannot be excluded. The aperture of the hernia in the abdominal wall musculature measures about 5.5 cm in diameter. There has been prior gastric surgery. Free fluid: None. Abdominal aorta: No aneurysm or dissection. Adenopathy: None. Appendix: Not inflamed. Osseous structures: Unremarkable. Pelvis: No mass. Prior hysterectomy. IMPRESSION: Inferior anterior abdominal wall hernia contains inflamed fat, with moderately dilated small bowel leading into the hernia sac and a transition point identified consistent with small bowel obstruction. Incarceration and strangulation cannot be excluded. <Electronically signed by Ruy Taylor > 09/01/20 [id number]
[2020-09-01] MEDS ORDERED: OMEP-218 PO (15:07)
[2020-09-01] MEDS ORDERED: MORPHINE 4 MG/ML 1ML VIAL/SYRINGE (J2270) IV PRN ×2 (15:20→16:55)
[2020-09-01 16:49] LABS: NT-PRO BNP 386 PG/ML (<125)
[2020-09-01 17:15] VITALS: BP 136/75
[2020-09-01 17:30] VITALS: O2SAT 95
[2020-09-01] MEDS: CIPROFLOXACIN 400 MG in IV 1 EA IV SCH (17:45)
[2020-09-01] MEDS: NS 1,000 ML IV SCH (17:45)
[2020-09-01] MEDS: ONDANSETRON 4MG/2ML VIAL IV PRN (17:46)
--- NOTE | 2020-09-01 17:50 | HPEPDOC ---
[facility] Medical History & Physical Date of Admission Sep 01, 2020 Date of Service: Sep 01, 2020 Attending Physician: FELIPE HOLLY MD History and Physical CHIEF COMPLAINT: abdominal pain, nausea, emesis, constipation HISTORY OF PRESENT ILLNESS: 50 yo W with morbid obesity s/p gastric sleeve surgery in 07/2019, a history of DM that has since resolved and asthma, who was doing well and went to the [facility] on Tuesday [place] with her fiance and returned home well, but then developed some nausea and vomiting on Thursday 08/31 that was quite severe with inability to take PO and by this morning had severe RLQ pain with bulging of her known hernia and constipation at which point she presented to the ED. In the ED, she is hemodynamically stable, afebrile but was in significant pain and received 4mg morphine with some relief. Workup in the ED was notable for positive covid-19 testing, CT A/P showed an anterior abdominal wall hernia containing inflamed fat, dilated small bowel loops with a transition point noted compatible with an SBO while incarceration and strangulation could not be ex cluded. WBC was 6.9, Hgb 16.2, platelets 323, Na 135, K 4, Cr 0.59, lactate 1.9, UA was positive for 1+ bacteruria while Ddimer was elevated at 1173, CRP was 2.18, LDH 175, ferritin 115. Dr. Boston was consulted by the ED and will evaluate the patient shortly. She is now being admitted to medicine. PAST MEDICAL HISTORY: Morbid obesity Past history of DM Asthma PAST SURGICAL HISTORY: 1. Gastric sleeve in 07/2019 SOCIAL HISTORY: Engaged Non smoker Casual occasional alcohol No illicit drug use FAMILY HISTORY: Obesity DM ALLERGIES: PCNs and cephalosporins REVIEW OF SYSTEMS: 12 point ROS was completed and pertinent positives are as stated in HPI while the rest of the ROS was grossly negative. HOME MEDICATIONS: Please see below. PHYSICAL EXAMINATION: VITAL SIGNS: see below. HDS, afebrile, breathing comfortably on room air GENERAL APPEARANCE: morbidly obese, NAD HEENT: NCAT, wearing face mask, on removal, no facial plethora, PERRLA, EOMI, anicteric, no injection, MMM CARDIOVASCULAR: RRR, no m/r/g LUNGS: CTAB without rales, rhonchi or wheezing at this time ABDOMEN: Hypoactive, RLQ hernia buldge, pain with palpation, soft abdomen otherwise, obese EXTREMITIES: WWP, no LE edema NEUROLOGICAL: CN 2 - 12 intact, moving extremities spontaneously PSYCHIATRIC: AOx3 LABORATORY DATA and IMAGING: summarized in HPI above MICROBIOLOGY: Please see below. ASSESSMENT: 50 yo W with morbid obesity s/p gastric sleeve surgery in 07/2019, a history of DM and longstanding ventral hernia who presented for severe related hernia related pain i/s/o of N/V and found to have covd-19 infection and possibly incarcerated hernia with an SBO. PLAN: Covid-19 infection: -No pulmonary symptoms as of yet, all her symptoms have been GI related with N/V and likely precipitated likely incarceration of hernia and SBO from repeated abdominal muscle use during dry heaving -q4h O2 sats -droplet precaution -lovenox 40mg daily for DVT ppx -daily CBC, BMP -Q2D ddimer, ferritin, fibrinogen, LDH, CRP -zofran PRN for nausea -fluids at 125cc/hr Anterior abdominal wall hernia containing inflamed fat, dilated small bowel loops with a transition point noted compatible with an SBO -NPO -pending surgical evaluation by Dr. Boston -IVF, NS at 125cc/hr -zofran PRN Q6HP -morphine 4mg IV Q6HP for severe pain -Empiric cipro 400mg IV BID -protonix 40mg IV BID Asthma: -continue home montelukast GERD: -On IV PPI BID DVT ppx: lovenox, TEDs and SCDs DIspo: inpatient Vital Signs Vital Signs Date Time Temp Pulse Resp B/P (MAP) Pulse Ox O2 Delivery O2 Flow Rate FiO2 09/01/20 16:16 16 168/65 (99) 09/01/20 16:15 97 92 09/01/20 13:01 Room Air 09/01/20 08:23 98.7 Laboratory Data Labs 24H Laboratory Tests 2 09/01/20 08:35: Immature Granulocyte % (Auto) 0.4, Neutrophils (%) (Auto) 76.7H, Lymphocytes (%) (Auto) 12.2L, Monocytes (%) (Auto) 10.4H, Eosinophils (%) (Auto) 0.0, Basophils (%) (Auto) 0.3, Neutrophils # (Auto) 5.3, Lymphocytes # (Auto) 0.9L, Monocytes # (Auto) 0.7, Eosinophils # (Auto) 0.0, Basophils # (Auto) 0.0, Nucleated Red Blood Cells % (auto) 0.0, Prothrombin Time 12.9, Prothromb Time International Ratio 0.96, Activated Partial Thromboplast Time 32.2, Fibrinogen 601H, D-Dimer, Quantitative 1173.97H, Anion Gap 8, Glomerular Filtration Rate > 60.0, Lactic Acid Level 1.9, Calcium Level 9.5, Ferritin 115, Total Bilirubin 0.5, Aspartate Amino Transf (AST/SGOT) 14, Alanine Aminotransferase (ALT/SGPT) 28, Alkaline Phosphatase 77, Lactate Dehydrogenase 175, Total Creatine Kinase 75, Creatine Kinase MB 1.2, Creatine Kinase MB Relative Index 1.60, Troponin I < 0.02, C- Reactive Protein, Quantitative 2.18H, Total Protein 8.1, Albumin 3.8, Albumin/Globulin Ratio 0.9L 09/01/20 09:12: POC pH (Misc Panel) 7.576H, POC Base Excess (Misc Panel) -1.0, POC Saturated Percent O2 (Misc) 98, POC pO2 (Misc Panel) 92.0, POC pCO2 (Misc Panel) 22.5L, POC HCO3 (Misc Panel) 20.9L, POC Total CO2 (Misc Panel) 22.0L 09/01/20 09:56: Urine Color YELLOW, Urine Appearance HAZY, Urine pH 6.0, Urine Specific [place] 1.021, Urine Protein 1+H, Urine Glucose (UA) NEGATIVE, Urine Ketones 1+H, Urine Blood 1+H, Urine Nitrite NEGATIVE, Urine Bilirubin NEGATIVE, Urine Urobilinogen 0.2, Urine Leukocyte Esterase NEGATIVE, Urine WBC (Auto) 4H, Urine RBC (Auto) 2, Urine Hyaline Casts (Auto) 0, Urine Bacteria (Auto) 1+H, Urine Squamous Epithel ial Cells 7, Urine Mucus (Auto) SMALL, Urine Sperm (Auto) CBC/BMP Laboratory Tests 09/01/20 08:35 Microbiology Microbiology 09/01/20 Respiratory Virus Panel (PCR) ([facility]) - Final, Complete SARS-CoV-2 (COVID 19) 09/01/20 Blood Culture, Received Pending 09/01/20 Blood Culture, Received Pending Home Medications Scheduled Fluconazole (Fluconazole) 100 Mg Tablet, 200 MG PO QWEEK FRIDAYS Iron,Fm,Ps/Folic/B,C18/L.casei (Fusion Plus Capsule) 1 Each Capsule, 2 CAP PO BID Montelukast Sodium (Montelukast Sodium) 10 Mg Tab, 10 MG PO QHS Omeprazole (Omeprazole) 20 Mg Capsule.dr, 20 MG PO BID Allergies Coded Allergies: Penicillins (Unverified Adverse Reaction, Severe, SEIZURE, 09/01/18) A-FIB/CHADSVASC A-FIB History Current/History of A-Fib/PAF?: No Current PO Anticoag Therapy: No Age/Risk Factor Scoring CHADSVASC: CHADSVASC Response (Comments) Value Age Risk Factor Age < 65 years old 0 Gender Risk Factor Female 1 Hx of CHF No 0 Hx of HTN No 0 Hx of Stroke/TIA/or VTE No 0 Hx of Diabetes Yes 1 Hx of Vascular Disease No 0 Total 2 Treatment Treatment ordered: NONE Reason Anticoagulant not given: Not indicated/[id number] FELIPE HOLLY MD Sep 01, 2020 17:49
[2020-09-01 18:00] VITALS: O2SAT 89
[2020-09-01 18:05] VITALS: O2SAT 97
[2020-09-01 20:01] VITALS: O2SAT 96
[2020-09-01] MEDS ORDERED: IBUPROFEN 400MG TAB PO PRN (20:20)
--- NOTE | 2020-09-01 20:30 | ECGEPIP ---
[facility] - ED Test Date: 2020-09-01 Pat Name: LANDON BETANCOURT Department: Room: [place] [address] Gender: Female [employer]: ED : 1970 Requested By: Bob Sheehan Order Number: [id number] Reading MD: Bob Villasenor Measurements Intervals [place] Rate: 89 P: 54 IN: 118 QRS: 32 QRSD: 92 T: 41 QT: 366 QTc: 445 Interpretive Statements Normal sinus rhythm Possible Left atrial enlargement NSTTW ABNORMALITY(S) SIMILAR TO 05/17/17 Electronically Signed on 09-01-2020 20:30:47 EDT by Bob Villasenor
[2020-09-01] MEDS ORDERED: CIPROFLOXACIN 400 MG in IV 1 EA IV ONE (21:00)
[2020-09-01] MEDS: MONTELUKAST 10 MG TAB PO SCH (21:06)
[2020-09-01] MEDS: ACETAMINOPHEN TAB 650MG DOSE (2X325MG) PO PRN (21:06)
[2020-09-01] MEDS: PANTOPRAZOLE 40MG VIAL (C9113 PER 1) IV SCH (21:06)
[2020-09-01 22:00] VITALS: BP 116/57
[2020-09-02] VITALS (9 sets, daily range): BP systolic 109–144; BP diastolic 58–81; O2SAT 95–98
[2020-09-02] MEDS: MORPHINE 4 MG/ML 1ML VIAL/SYRINGE (J2270) IV PRN ×4 (03:19→22:27)
[2020-09-02] MEDS: ONDANSETRON 4MG/2ML VIAL IV PRN ×3 (03:20→22:06)
[2020-09-02] MEDS: NS 1,000 ML IV SCH ×3 (03:22→21:35)
[2020-09-02] MEDS: CIPROFLOXACIN 400 MG in IV 1 EA IV SCH ×2 (06:11→17:03)
[2020-09-02 07:08] LABS: BASO % 0.2 % (0.0-1.0); HEMATOCRIT 45.1 % (36.0-47.0); HEMOGLOBIN 14.8 g/dl (12.0-15.5); LYMPH # 0.5 10^3/uL (1.5-5.0); LYMPH % 8.2 % (24.0-44.0); MEAN CORPUSCULAR HEMOGLOBIN 30.6 pg (27.0-33.0); MEAN CORPUSCULAR HGB CONC 32.8 g/dl (32.0-36.5); MEAN CORPUSCULAR VOLUME 93.4 fl (80.0-96.0); MONO # 0.7 10^3/uL (0.0-0.8); MONO % 11.4 % (2.0-8.0); NEUTROPHILS # 4.9 10^3/uL (1.5-8.5); NEUTROPHILS % 79.9 % (36.0-66.0); PLATELET COUNT, AUTOMATED 226 10^3/uL (150-450); RED BLOOD COUNT 4.83 10^6/uL (4.00-5.40); WHITE BLOOD COUNT 6.1 10^3/uL (4.0-10.0)
[2020-09-02 07:37] LABS: BLOOD UREA NITROGEN 14 MG/DL (7-18); CALCIUM LEVEL 8.1 MG/DL (8.5-10.1); CARBON DIOXIDE LEVEL 28 MEQ/L (21-32); CHLORIDE LEVEL 106 MEQ/L (98-107); CREATININE FOR GFR 0.63 MG/DL (0.55-1.30); GLOMERULAR FILTRATION RATE > 60.0 (>51); GLUCOSE, FASTING 163 MG/DL (70-100); MAGNESIUM LEVEL 2.1 MG/DL (1.8-2.4); POTASSIUM SERUM 3.8 MEQ/L (3.5-5.1); SODIUM LEVEL 138 MEQ/L (136-145)
[2020-09-02] MEDS: ENOXAPARIN 40MG/0.4ML SYRINGE (J1650 PER 10MG) SC SCH (08:03)
[2020-09-02] MEDS: PANTOPRAZOLE 40MG VIAL (C9113 PER 1) IV SCH ×2 (08:20→21:36)
--- NOTE | 2020-09-02 09:16 | CR ---
"CONSULTATION DATE: 09/01/2020 REASON FOR CONSULTATION: Incarcerated incisional hernia with small bowel obstruction. HISTORY OF PRESENT ILLNESS: The patient is a 50-year-old woman who reportedly has had a lower abdominal incisional hernia for about four years. She reports having had four sections during her life. Some six years ago, she underwent an open hysterectomy with bilateral salpingo-oophorectomy. She apparently had some wound healing problems afterwards and about two years after the surgery, she noticed a bulge in the lower abdomen. She reports that her hernia has always protruded, but has sometimes become uncomfortable in the past. She reports that about two days ago, she noted the onset of some lower abdominal tenderness and subsequently developed some discomfort extending up in the right mid abdomen. She had some nausea and developed some vomiting. The hernia itself became somewhat tender. She was seen at an Urgent Care Center apparently on the 31 of August and was found to be COVID positive and apparently her symptoms were attributed to that. However, her symptoms did not remit and she presented to the Emergency Department on the 01 of September. She reported persistent discomfort with some dry heaves. She again tested positive for COVID-19, though she has had no respiratory symptoms. She was admitted by the hospitalist for management and I am consulted regarding her hernia and possible intestinal obstruction. ALLERGIES: Patient reports a severe allergy to penicillin, which leads to seizures. MEDICATIONS: Patient's home medications include: 1. Fluconazole 100 mg tablets 200 mg weekly on Fridays. 2. Multivitamin capsule daily. 3. Montelukast 10 mg p.o. q.h.s. 4. Omeprazole 20 mg p.o. twice daily. PAST SURGICAL HISTORY: Patient had undergone a sleeve gastrectomy in July of 2019. She reports that she has lost 100 pounds since then. She has a history of four sections. She had a hysterectomy through a low transverse incision approximately six years ago. PAST MEDICAL HISTORY: Significant for past history of diabetes, which apparently has remitted since her sleeve gastrectomy and weight loss. She remains morbidly obese. She has a history of asthma. FAMILY HISTORY: Significant for obesity and diabetes. SOCIAL HISTORY: Patient is engaged. She was a short term smoker previously, but does not smoke currently. She reports an occasional alcoholic beverage.| REVIEW OF SYSTEMS: Reveals no cardiac symptoms. She has no respiratory symptoms currently. She has had no melena, hematochezia or hematemesis. She denies any dysuria or hematuria. She has no new bone or joint problems, and denies any history of DVT or pulmonary embolus. PHYSICAL EXAMINATION AT THIS TIME: GENERAL: She is awake and alert. She was sitting on the edge of her bed when I came to see her. She reports some discomfort in the hernia itself low in right lower quadrant. SKIN: Warm and dry. HEENT: Sclerae are anicteric. Neck is supple, without mass. HEART: Shows a regular rate and rhythm. She is not tachycardic. LUNGS: Clear to auscultation bilaterally. ABDOMEN: Quite obese. She has an old low midline scar starting about at the umbilicus. She has an old low transverse scar in her skin fold. She has several healed trocar site type scars across the upper abdomen. She has active bowel sounds. There is no tympany to percussion and no tenderness to percussion in the upper abdomen. She does have a hernia bulge slightly to the right of the midline, that is perhaps 10 cm to the right of midline low on the right lower quadrant hidden somewhat in her pannus. This is perhaps 8 to 10 cm across. There is some tenderness on palpation of the lateral aspect of this bulge. It does not reduce manually. LABORATORY STUDIES: In the Emergency Department earlier in the day include white count 7, hemoglobin 16, hematocrit 49 and platelet count 323,000. Her differential count revealed 77% neutrophils, 12% lymphocytes and 10% monocytes. Chemistry profile showed normal electrolytes with BUN 15, creatinine 0.6 and glucose 131. The lactic acid was only 1.9. Liver function tests were all normal. Troponin less than 0.02. C-reactive protein 2.18 and BNP 386. A procalcitonin was done, which was less than 0.05. Urinalysis was not strongly suggestive of a urinary tract infection. She had a SARS-CoV-2 COVID-19 swab that was positive. IMAGING STUDIES: A chest x-ray showed no acute cardiopulmonary abnormalities. A CT scan of the abdomen and pelvis was done in the ER, and this revealed an abdominal wall hernia low in the right lower quadrant. This reportedly contained some inflamed fat with some mildly dilated small bowel and some collapsed small bowel. The opening of the fascial defect was approximately 5 cm in diameter. There is evidence of her prior sleeve gastrectomy noted. There was no abdominal free fluid. There was evidence for prior hysterectomy. Interestingly, she had a previous CT scan two years to the day ago, which showed the general structure and size of her hernia was the same then that it is now, though without evidence for a small bowel obstruction and without any inflammatory changes. IMPRESSION: 1. Incarcerated incisional hernia with small bowel obstruction. 2. COVID-19 serology positive; currently asymptomatic. 3. Morbid obesity. 4. Status post sleeve gastrectomy. RECOMMENDATIONS: At this point, the patient does not appear to require emergent surgery this evening. Her labs earlier in the day were fairly unremarkable. The CT scan did suggest that there is a point of obstruction within her hernia and she has some tenderness on palpation of the hernia. I do think that she is going to need surgery for this unless it resolves completely overnight. I have therefore taken the liberty of trying to fit her into the schedule for a robotic incisional hernia repair on the 02 of September. She was started on antibiotics earlier and this is probably not inappropriate. I do think she should remain n.p.o. for now. I think an NG tube is not likely to be of great benefit, but if she were to develop repeated vomiting, then this might be a step to take. Patient was counseled that I think she is going to require surgery during this hospital stay and she sounds agreeable with this plan. KIMMY"
--- NOTE | 2020-09-02 10:26 | IPNPDOC ---
Text Note Date of Service The patient was seen on 09/02/20. NOTE SUBJECTIVE: -Had significant hernia pain, improves with morphine -NPO for surgery this midday PHYSICAL EXAMINATION: VITAL SIGNS: see below. HDS, afebrile, breathing comfortably on room air GENERAL APPEARANCE: morbidly obese, NAD HEENT: NCAT, wearing face mask, on removal, no facial plethora, PERRLA, EOMI, anicteric, no injection, MMM CARDIOVASCULAR: RRR, no m/r/g LUNGS: CTAB without rales, rhonchi or wheezing at this time ABDOMEN: Hypoactive, RLQ hernia buldge, pain with palpation, soft abdomen otherwise, obese EXTREMITIES: WWP, no LE edema NEUROLOGICAL: CN 2 - 12 intact, moving extremities spontaneously PSYCHIATRIC: AOx3 LABORATORY DATA: reviewed MICROBIOLOGY: Please see below. ASSESSMENT: 50 yo W with morbid obesity s/p gastric sleeve surgery in 07/2019, a history of DM and longstanding ventral hernia who presented for severe related hernia related pain i/s/o of N/V and found to have covd-19 infection and incarcerated hernia with an SBO. PLAN: Covid-19 infection: -No pulmonary symptoms as of yet, all her symptoms have been GI related with N/V and likely precipitated likely incarceration of hernia and SBO from repeated abdominal muscle use during dry heaving -q4h O2 sats -droplet precaution -lovenox 40mg daily for DVT ppx -daily CBC, BMP -Q2D ddimer, ferritin, fibrinogen, LDH, CRP -zofran PRN for nausea -fluids at 125cc/hr JAQUELINE: -nocturnal O2 Anterior abdominal wall hernia containing inflamed fat, dilated small bowel loops with a transition point noted compatible with an SBO -NPO -pending surgery by Dr. Boston -IVF, NS at 125cc/hr -zofran PRN Q6HP -morphine 4mg IV Q3HP for severe pain -Empiric cipro 400mg IV BID -protonix 40mg IV BID Asthma: -continue home montelukast GERD: -On IV PPI BID DVT ppx: lovenox, TEDs and SCDs DIspo: inpatient VS,Fishbone, I+O VS, Fishbone, I+O Laboratory Tests 09/02/20 06:58 Vital Signs Date Time Temp Pulse Resp B/P (MAP) Pulse Ox O2 Delivery O2 Flow Rate FiO2 09/02/20 09:26 20 95 Nasal Cannula 2.0 09/02/20 06:00 99.7 110 121/58 (79) I&O- Last 24 Hours up to 6 AM 09/02/20 06:00 Intake Total 300 ml Output Total 620 ml Balance -320 ml FELIPE HOLLY MD Sep 02, 2020 10:25
[2020-09-02] MEDS ORDERED: fentaNYL 100 MCG/2 ML INJECTION (J3010) As Ordered ONE ×3 (11:10→17:50)
[2020-09-02] MEDS ORDERED: propofoL 200 MG/20 ML VIAL As Ordered ONE ×2 (11:10→19:50)
[2020-09-02] MEDS ORDERED: LIDOCAINE 2% 100MG/5ML SDV (FOR ANES.) As Ordered ONE (11:10)
[2020-09-02] MEDS ORDERED: ROCURONIUM BROMIDE 50 MG/5 ML VIAL As Ordered ONE ×5 (11:10→19:03)
[2020-09-02] MEDS ORDERED: ONDANSETRON 4MG/2ML VIAL As Ordered ONE ×2 (11:11→20:02)
[2020-09-02] MEDS ORDERED: dexameTHASONE 4 MG/ML 1ML VIAL (J1100 PER 1MG) As Ordered ONE (11:11)
[2020-09-02] MEDS ORDERED: MIDAZOLAM INJ 2MG/2ML VIAL (J2250 PER 1MG) As Ordered ONE (11:11)
[2020-09-02] MEDS ORDERED: MORPHINE 4 MG/ML 1ML VIAL/SYRINGE (J2270) IV ONE (12:05)
[2020-09-02] MEDS: ACETAMINOPHEN TAB 650MG DOSE (2X325MG) PO PRN ×2 (12:24→22:28)
[2020-09-02] MEDS ORDERED: BUPIVACAINE HCL 0.25% 30ML VIAL As Ordered ONE (12:47)
[2020-09-02] MEDS ORDERED: metroNIDAZOLE/NACL 500MG(5MG/ML) 100ML BAG (S0030) As Ordered ONE (14:11)
[2020-09-02] MEDS ORDERED: CIPROFLOXACIN/D5W 400 MG/200 ML BAG (J0744) As Ordered ONE (17:00)
[2020-09-02] MEDS ORDERED: ACETAMINOPHEN 1000MG 100ML IV BTL (OFIRMEV) (J0131 PER 10MG) As Ordered ONE (19:46)
[2020-09-02] MEDS ORDERED: KETOROLAC 60MG 2ML VIAL As Ordered ONE (19:54)
[2020-09-02] MEDS ORDERED: SUGAMMADEX SODIUM 500 MG/5 ML VIAL (BRIDION) As Ordered ONE (19:54)
[2020-09-02] MEDS ORDERED: ONDANSETRON 4MG/2ML VIAL IV PRN (20:50)
[2020-09-02] MEDS ORDERED: PERCOCET 5MG/325MG TAB PO PRN (20:50)
[2020-09-02] MEDS ORDERED: METOCLOPRAMIDE INJ 10MG/2ML VIAL (J2765 PER 1) IV PRN (20:50)
[2020-09-02] MEDS ORDERED: LR 1,000 ML IV SCH (20:50)
[2020-09-02] MEDS: fentaNYL 100 MCG/2 ML INJECTION (J3010) IV PRN ×2 (20:58→21:04)
[2020-09-02] MEDS: MONTELUKAST 10 MG TAB PO SCH (21:36)
[2020-09-02] MEDS: metroNIDAZOLE 500 MG in IV 1 EA IV SCH (21:36)
[2020-09-03] VITALS (14 sets, daily range): BP systolic 104–124; BP diastolic 56–81; O2SAT 92–97
[2020-09-03] MEDS ORDERED: PROMETHAZINE 25 MG TAB PO ONE (01:40)
[2020-09-03] MEDS: MORPHINE 4 MG/ML 1ML VIAL/SYRINGE (J2270) IV PRN ×6 (01:45→21:57)
[2020-09-03 02:39] LABS: BLOOD UREA NITROGEN 12 MG/DL (7-18); CALCIUM LEVEL 7.8 MG/DL (8.5-10.1); CARBON DIOXIDE LEVEL 25 MEQ/L (21-32); CHLORIDE LEVEL 108 MEQ/L (98-107); CREATININE FOR GFR 0.75 MG/DL (0.55-1.30); GLOMERULAR FILTRATION RATE > 60.0 (>51); GLUCOSE, FASTING 129 MG/DL (70-100); MAGNESIUM LEVEL 1.9 MG/DL (1.8-2.4); PHOSPHORUS LEVEL 1.8 MG/DL (2.5-4.9); POTASSIUM SERUM 3.5 MEQ/L (3.5-5.1); SODIUM LEVEL 140 MEQ/L (136-145); TROPONIN I < 0.02 NG/ML (< 0.10)
[2020-09-03] MEDS ORDERED: K-PHOS ORIGINAL (POT.ACID PHOSPHATE) 500MG TAB PO ONE (03:20)
[2020-09-03] MEDS ORDERED: MAG SULF 1GM/100ML (MAG RUN) 1 GM in IV 1 EA IV ONE (03:25)
[2020-09-03] MEDS: metroNIDAZOLE 500 MG in IV 1 EA IV SCH ×3 (06:00→20:36)
[2020-09-03] MEDS: ONDANSETRON 4MG/2ML VIAL IV PRN (07:21)
[2020-09-03] MEDS: CIPROFLOXACIN 400 MG in IV 1 EA IV SCH ×2 (07:22→17:09)
[2020-09-03 07:48] LABS: HEMATOCRIT 47.5 % (36.0-47.0); MEAN CORPUSCULAR HEMOGLOBIN 29.5 pg (27.0-33.0); MEAN CORPUSCULAR HGB CONC 31.6 g/dl (32.0-36.5); MEAN CORPUSCULAR VOLUME 93.5 fl (80.0-96.0); PLATELET COUNT, AUTOMATED 220 10^3/uL (150-450); RED BLOOD COUNT 5.08 10^6/uL (4.00-5.40); WHITE BLOOD COUNT 7.3 10^3/uL (4.0-10.0)
[2020-09-03 07:58] LABS: INR 1.21; PARTIAL THROMBOPLASTIN TIME 32.4 SECONDS (24.2-38.5); PROTHROMBIN TIME 15.6 SECONDS (12.5-14.3)
[2020-09-03 08:12] LABS: ATYPICAL LYMPH 3 % (0-5); LYMPHOCYTES 6 % (16-44); MONOCYTES 18 % (0-5); NEUTROPHILS 58 % (28-66)
[2020-09-03 08:13] LABS: PLATELET ESTIMATE NORMAL (NORMAL)
[2020-09-03 08:14] LABS: TOXIC GRANULATION 1+
[2020-09-03 08:32] LABS: ALBUMIN 2.7 GM/DL (3.2-5.2); ALT/SGPT 45 U/L (12-78); BILIRUBIN,DIRECT 0.3 MG/DL (0.0-0.2); BILIRUBIN,TOTAL 0.5 MG/DL (0.2-1.0); BLOOD UREA NITROGEN 11 MG/DL (7-18); CALCIUM LEVEL 8.2 MG/DL (8.5-10.1); CARBON DIOXIDE LEVEL 27 MEQ/L (21-32); CHLORIDE LEVEL 106 MEQ/L (98-107); CPK CREATINE PHOSPHOKINASE 345 U/L (26-192); CREATININE FOR GFR 0.66 MG/DL (0.55-1.30); FERRITIN 282 NG/ML (8-252); GLOMERULAR FILTRATION RATE > 60.0 (>51); GLUCOSE, FASTING 141 MG/DL (70-100); LDH LACTATE DEHYDROGENASE 188 U/L (84-246); MAGNESIUM LEVEL 2.3 MG/DL (1.8-2.4); NT-PRO BNP 503 PG/ML (<125); POTASSIUM SERUM 3.6 MEQ/L (3.5-5.1); SODIUM LEVEL 140 MEQ/L (136-145); TOTAL PROTEIN 6.2 GM/DL (6.4-8.2); TROPONIN I < 0.02 NG/ML (< 0.10)
[2020-09-03] MEDS: PANTOPRAZOLE 40MG VIAL (C9113 PER 1) IV SCH ×2 (09:09→20:36)
[2020-09-03] MEDS: ENOXAPARIN 40MG/0.4ML SYRINGE (J1650 PER 10MG) SC SCH (09:09)
[2020-09-03] MEDS: ACETAMINOPHEN TAB 650MG DOSE (2X325MG) PO PRN (10:52)
[2020-09-03] MEDS ORDERED: KETOROLAC 30 MG/ML 1ML VIAL IV PRN (12:10)
--- NOTE | 2020-09-03 12:14 | IPNPDOC ---
Text Note Date of Service The patient was seen on 09/03/20. NOTE SUBJECTIVE: -POD1 s/p lap hernia repair -Has abdominal pain, mild nausea and burping, no emesis, no flatus or BMs yet PHYSICAL EXAMINATION: VITAL SIGNS: see below. HDS, afebrile, breathing comfortably on room air GENERAL APPEARANCE: morbidly obese, NAD HEENT: NCAT, wearing face mask, on removal, no facial plethora, PERRLA, EOMI, anicteric, no injection, MMM CARDIOVASCULAR: RRR, no m/r/g LUNGS: CTAB without rales, rhonchi or wheezing at this time ABDOMEN: Hypoactive, pain with palpation, soft abdomen otherwise, obese, lap sites c/d/i EXTREMITIES: WWP, no LE edema NEUROLOGICAL: CN 2 - 12 intact, moving extremities spontaneously PSYCHIATRIC: AOx3 LABORATORY DATA: reviewed MICROBIOLOGY: Please see below. ASSESSMENT: 50 yo W with morbid obesity s/p gastric sleeve surgery in 07/2019, a history of DM and longstanding ventral hernia who presented for severe related hernia related pain i/s/o of N/V and found to have covd-19 infection and incarcerated hernia with an SBO now s/p POD1 post robotic assisted laparoscopic hernia repair with mesh with release of SBO with anastomosis. PLAN: Covid-19 infection: -No pulmonary symptoms as of yet, all her symptoms have been GI related with N/V and likely precipitated likely incarceration of hernia and SBO from repeated a bdominal muscle use during dry heaving -q4h O2 sats -droplet precaution -lovenox 40mg daily for DVT ppx -daily CBC, BMP -Q2D ddimer, ferritin, fibrinogen, LDH, CRP -zofran PRN for nausea -fluids at 125cc/hr JAQUELINE: -nocturnal O2 Anterior abdominal wall hernia containing inflamed fat, dilated small bowel loops with a transition point noted c/b SBO now POD #1 s/p robotic assisted laparoscopic hernia repair with mesh with release of SBO with anastomosis. -NPO, with sips and chips -surgery done by Dr. Boston -zofran PRN Q6HP -morphine 4mg IV Q3HP for breathrough pain, 30Q6HP toradol for severe pain -Continue empiric cipro 400mg IV BID -protonix 40mg IV BID Asthma: -continue home montelukast GERD: -On IV PPI BID DVT ppx: lovenox, TEDs and SCDs DIspo: inpatient VS,Fishbone, I+O VS, Fishbone, I+O Laboratory Tests 09/03/20 01:55 09/03/20 07:34 Vital Signs Date Time Temp Pulse Resp B/P (MAP) Pulse Ox O2 Delivery O2 Flow Rate FiO2 09/03/20 11:22 18 Room Air 09/03/20 10:52 94 09/03/20 10:50 100.1 118 09/03/20 08:04 106/63 (77) 2.0 I&O- Last 24 Hours up to 6 AM 09/03/20 06:00 Intake Total 4323 ml Output Total 1200 ml Balance 3123 ml FELIPE HOLLY MD Sep 03, 2020 12:14
[2020-09-03] MEDS: KETOROLAC 30 MG/ML 1ML VIAL IV SCH ×2 (14:35→20:37)
--- NOTE | 2020-09-03 16:10 | IPN ---
PROGRESS NOTE DATE: 09/03/2020 HISTORY: Patient is now postoperative day #1 from a robotic-assisted laparoscopic repair of her strangulated lower abdominal incisional hernia. She had a small segment of jejunum that had strangulated and she underwent repair of her hernia and a small bowel resection with anastomosis. This was completed yesterday evening. Vital signs: Patient has had a maximum temperature of 101 degrees at 8 o'clock this morning. Her pulse has been in the low 100s and one-hundred teens today. Blood pressure is good and her room air oxygen saturation is in the mid 90s. Intake and output show that yesterday she had 3800 in with 1400 mL recorded out. She has had a good urine output of 600 mL so far today. PHYSICAL EXAMINATION: Patient is somewhat tired in appearance. She is alert and oriented. Skin is warm and dry. Sclerae are anicteric. Heart exam shows a regular tachycardia. The lungs are clear. The abdomen is obese. Her dressings on her five small incisions are all clean and dry. She does have a few bowel sounds present in the mid abdomen. She has some mild to moderate diffuse abdominal tenderness, but nothing unexpected. LABORATORY STUDIES: Laboratory studies today include a CBC showing a white count of 7, hemoglobin of 15, hematocrit of 48 and a platelet count of 228,000. Differential count shows 58% neutrophils, 15% bands, 6 lymphocytes and 15 monocytes. Chemistry profile today shows normal electrolytes with a BUN of 11, creatinine 0.7 and a glucose of 141. Her liver function tests are normal. Total CK is 345. BNP was 503. Total protein is 6.2 with an albumin of 2.7. She had a procalcitonin level of 4.91. IMPRESSION: Patient is doing fairly well one day postoperatively from repair of her hernia with resection of small bowel and anastomosis. She also has a known positive COVID test and is being monitored for this. She is mildly tachycardic today, I think most consistent from discomfort from her hernia repair. PLAN: Patient will be allowed to take some sips of clear liquid today. She was counseled regarding the findings at surgery and was counseled that there is a risk that her mesh could become infected because of bacteria from her bowel resection. She will remain, therefore, on antibiotics for several days. She is encouraged to be up out of bed. We will begin to advance her diet once it is clear she is having a good return of bowel function. MTDD
[2020-09-03] MEDS: MONTELUKAST 10 MG TAB PO SCH (20:36)
[2020-09-04] VITALS (7 sets, daily range): BP systolic 110–114; BP diastolic 57–74; O2SAT 93–95
[2020-09-04] MEDS: KETOROLAC 30 MG/ML 1ML VIAL IV SCH ×4 (01:50→19:56)
[2020-09-04] MEDS: metroNIDAZOLE 500 MG in IV 1 EA IV SCH ×3 (04:09→19:55)
[2020-09-04] MEDS: MORPHINE 4 MG/ML 1ML VIAL/SYRINGE (J2270) IV PRN ×3 (04:10→17:44)
[2020-09-04] MEDS: CIPROFLOXACIN 400 MG in IV 1 EA IV SCH ×2 (05:34→17:27)
[2020-09-04 06:42] LABS: HEMATOCRIT 43.1 % (36.0-47.0); HEMOGLOBIN 13.8 g/dl (12.0-15.5); MEAN CORPUSCULAR VOLUME 93.7 fl (80.0-96.0); PLATELET COUNT, AUTOMATED 235 10^3/uL (150-450); WHITE BLOOD COUNT 9.7 10^3/uL (4.0-10.0)
[2020-09-04 07:22] LABS: BLOOD UREA NITROGEN 18 MG/DL (7-18); CALCIUM LEVEL 8.1 MG/DL (8.5-10.1); CARBON DIOXIDE LEVEL 28 MEQ/L (21-32); CHLORIDE LEVEL 100 MEQ/L (98-107); CREATININE FOR GFR 0.82 MG/DL (0.55-1.30); GLOMERULAR FILTRATION RATE > 60.0 (>51); GLUCOSE, FASTING 98 MG/DL (70-100); MAGNESIUM LEVEL 2.3 MG/DL (1.8-2.4); PHOSPHORUS LEVEL 2.4 MG/DL (2.5-4.9); POTASSIUM SERUM 3.6 MEQ/L (3.5-5.1); SODIUM LEVEL 136 MEQ/L (136-145); THYROID STIMULATING HORMONE 0.625 uIU/ML (0.358-3.740); TROPONIN I < 0.02 NG/ML (< 0.10)
[2020-09-04 07:48] LABS: ATYPICAL LYMPH 3 % (0-5); LYMPHOCYTES 6 % (16-44); MONOCYTES 4 % (0-5); NEUTROPHILS 71 % (28-66)
[2020-09-04 07:50] LABS: PLATELET ESTIMATE NORMAL (NORMAL)
--- NOTE | 2020-09-04 08:21 | RO ---
OPERATIVE NOTE DATE OF OPERATION: 09/02/2020 PREOPERATIVE DIAGNOSIS: Incarcerated incisional hernia with bowel obstruction. POSTOPERATIVE DIAGNOSIS: Strangulated lower abdominal incisional hernia with small bowel obstruction. Short segment of ileum entrapped in the hernia was infarcted. PROCEDURE PERFORMED: Robot-assisted laparoscopic repair of strangulated incisional hernia. The hernia was repaired with mesh and she also underwent small bowel resection of the distal ileum with anastomosis. SURGEON: Ricardo Boston MD FARROWING MANAGER: FUAD Rodriguez ANESTHESIA: General. INDICATIONS FOR THE PROCEDURE: The patient is a 50-year-old woman with longstanding lower abdominal incisional hernia which has been incarcerated for some time. She presented to the hospital with increased pain and evidence for a bowel obstruction. Her pain worsened and she is now for robotic-assisted laparoscopic repair of her hernia. DESCRIPTION OF PROCEDURE: The patient was brought to the operating room and placed on the table in supine position. She was placed under general endotracheal anesthesia. The patient's abdomen was prepped and draped in sterile fashion. The patient was noted to have a low midline scar that was slightly depressed. Her hernia was palpable in the right lower quadrant. Initial entry into the abdomen was in the epigastrium. 0.25% Marcaine was infiltrated at the trocar sites as needed. A short transverse incision was made high in the epigastrium about 8-10 cm above the umbilicus. A Veress needle was inserted and after positive hanging drop test insufflation was attempted. Pressures fluctuated widely and tended to remain high so I elected to replace the Veress in another location. A short transverse incision was made in the left upper quadrant and the Veress needle was inserted without difficulty. Insufflation yielded lower pressures and insufflation proceeded without difficulty. After the abdomen had been fully insufflated an 8 mm robotic port was placed over the camera and this was inserted through the abdominal wall in left upper quadrant without difficulty. Initial examination showed that the patient had fairly extensive adhesions of the omentum to the anterior abdominal wall all along the midline down into the pelvic region. It was possible to slide the camera down lateral to these and it was possible to note the midline fascial defect of her hernia. A 5 mm port was placed in the left upper quadrant and cauterizing scissor was used to takedown adhesions along the midline extending down into the pelvis. Once the anterior abdominal wall had been better exposed the 8 mm port was placed in the midline site and a third port also 8 mm was placed in the right upper quadrant. The patient was tilted to approximately 15-degrees of Trendelenburg. The patient cart of the da Margot Xi robot was brought into position and docked to the mid epigastric port for the camera port. Targeting took placed on the hernia in the low midline and the additional robotic arms were attached. A cauterizing scissor and fenestrated bipolar were inserted and I then moved to the control console to begin the procedure. Few remaining adhesions of the omentum to the anterior abdominal wall above the hernia were taken down. Small bowel was seen going through the midline fascial defect and extending to the right. There was some omentum that was also noted to be adherent into the hernia. Adhesions around the opening of the fascial defect were lysed. The omentum was placed on traction and freed from within the hernia. Several portions of omentum that were of questionable viability were cut off and set aside for later removal. With traction on the small bowel some adhesions were lysed to free the bowel but it remained quite adherent in an area that could not be readily seen. With further dissection the final portion of bowel that had been adherent was freed, apparently from within a separate lobulation and this was all reduced into the abdomen. Inspection showed a nonviable segment of small bowel approximately 2-3 cm in length that was about in the midportion of a perhaps 15 cm length of bowel that was somewhat edematous with multiple attached adhesions. I elected to proceed with the repair of the hernia and to resect the segment of small bowel later in the procedure. The fascial defect was measured and was 3 cm at its widest point and approximately 7 cm in length. I began elevating the peritoneum and any preperitoneal tissues off of the fascia circumferentially around the fascial defect to place the mesh in preperitoneal location. This was a fairly prolonged dissection but it was possible to free the peritoneum circumferentially. The peritoneum was dissected widely out on both sides exposing the rectus muscle fibers anteriorly. At the inferior aspect of the dissection the dissection was carried down posterior to the pubis. After the fascia had been clearly exposed and the peritoneal dissection completed the fascia was closed with running suture of #1 Stratafix. This was begun at the inferior end of the defect and carried superiorly. A second suture was begun at the superior end of the defect and carried inferiorly and these were slightly overlapped at the central portion of the closure. A 10 x 15 cm piece of ProGrip mesh was selected after measuring the preperitoneal space. This was ProGrip reference code [id number], lot #[id number]. The corners were trimmed slightly and the mesh was then rolled and inserted into the abdomen. This was placed over the sutured defect and unfolded over the overlying tissues. At the inferior end the mesh was tucked down posterior to the pubis slightly. The mesh nicely covered the area with good overlap on both sides. This was sutured in place, first down the midline and then around the entire circumference with absorbable 2-0 V-Loc sutures. This gave an excellent coverage with secure fastening of the mesh. The peritoneal tissues were then closed with running suture of 3-0 V-Loc. There was a small defect in the peritoneal closure right at the superior-most end of the closure. The lower abdomen was then irrigated and inspected and there was no evidence of any significant bleeding. I then proceeded with the resection of the small bowel. The SynchroSeal was used to create an opening through the mesentery of the small bowel. I elected to resect the entire area that had been heavily manipulated during freeing from the hernia. The mesentery was divided through the length of the specimen to be resected with the SynchroSeal. The bowel was then divided proximally and distally with the 60 mm robotic stapler with blue load. The resected specimen was placed in an Endopouch and the fragments of omentum that had been freed were also placed within the pouch for later removal. The ends of the bowel were then overlapped and tacking suture of 2-0 Vicryl was placed. Openings were created in the antimesenteric side of each loop of bowel. Unfortunately the small bowel was found to contain a large amount of undigested food debris. I attempted to suction and irrigate some of this material from within the lumen of each segment of bowel. There was some spillage of material into the lower abdomen. I continue to irrigate and suction as needed to try to clear an area for completion of the anastomosis. Once adequate material had been removed the 60 mm stapler was used to create an anastomosis with blue load of the stapler. The residual opening was then closed with suture of 3-0 V-Loc. This was carried from one end of the residual opening to the other and then brought back to create a second inverting layer of seromuscular sutures. The final closure looked excellent. I then proceeded with more extensive irrigation of the lower abdomen and pelvis to remove any additional spilled debris. The anastomosis lay approximately 20 cm or so from the ileocecal valve. After extensive irrigation of the pelvis there was no evidence of any residual material and no sign of bleeding was seen. In order to facilitate the bowel resection and anastomosis I would note that the 4th robotic arm was brought into play. The right upper quadrant 8 mm port site that had been placed earlier was converted to 12 mm and an 8 mm port was placed further lateral in the right upper quadrant. This allowed use of a grasping retractor, fenestrated bipolar and needle otero as well as allowing use of the stapler. After completing the bowel resection I elected to use the 12 mm port site as the extraction port. The patient was returned to a flat position. The robotic instruments were removed. The robot was undocked and withdrawn. Grasper was inserted through the 12 mm port and grabbed the string of the Endopouch. The abdomen was deflated then and the trocars were all removed. The incision at the 12 mm site was extended to perhaps 3-4 cm. The subcutaneous fat was opened down to the fascia and the fascia was opened using scissors. The specimen was removed and sent for permanent pathology as portion of ileum with omentum. The abdominal fascia was closed with sutures of 1-0 Vicryl. The incisions were closed with buried sutures of 4-0 Vicryl. Light dressings were applied. The patient tolerated the procedure well without apparent complication. She was awakened in the operating room, extubated and moved to the recovery room in stable condition. KIMMY
[2020-09-04] MEDS: PANTOPRAZOLE 40MG VIAL (C9113 PER 1) IV SCH ×2 (08:31→19:57)
[2020-09-04] MEDS: ENOXAPARIN 40MG/0.4ML SYRINGE (J1650 PER 10MG) SC SCH (08:32)
--- NOTE | 2020-09-04 13:26 | IPNPDOC ---
Text Note Date of Service The patient was seen on 09/04/20. NOTE SUBJECTIVE: -POD2 s/p lap hernia repair with mesh, small bowel resection with anastomosis -Has abdominal pain, mild nausea and burping, no emesis PHYSICAL EXAMINATION: VITAL SIGNS: see below. HDS, afebrile, breathing comfortably on room air GENERAL APPEARANCE: morbidly obese, NAD HEENT: NCAT, wearing face mask, on removal, no facial plethora, PERRLA, EOMI, anicteric, no injection, MMM CARDIOVASCULAR: RRR, no m/r/g LUNGS: CTAB without rales, rhonchi or wheezing at this time ABDOMEN: Hypoactive, pain with palpation, soft abdomen otherwise, obese, lap sites c/d/i EXTREMITIES: WWP, no LE edema NEUROLOGICAL: CN 2 - 12 intact, moving extremities spontaneously PSYCHIATRIC: AOx3 LABORATORY DATA: reviewed MICROBIOLOGY: Please see below. ASSESSMENT: 50 yo W with morbid obesity s/p gastric sleeve surgery in 07/2019, a history of DM and longstanding ventral hernia who presented for severe related hernia related pain i/s/o of N/V and found to have covd-19 infection and incarcerated hernia with an SBO now s/p POD1 post robotic assisted laparoscopic hernia repair with mesh with release of SBO with anastomosis. PLAN: Covid-19 infection: -No pulmonary symptoms as of yet, all her symptoms have been GI related with N/V and likely precipitated likely incarceration of hernia and SBO from repeated abdominal muscle use during dry heaving -q4h O2 sats -droplet precaution -lovenox 40mg daily for DVT ppx -daily CBC, BMP -Q2D ddimer, ferritin, fibrinogen, LDH, CRP -zofran PRN for nausea -fluids at 125cc/hr JAQUELINE: -nocturnal O2 Anterior abdominal wall hernia containing inflamed fat, dilated small bowel loops with a transition point noted c/b SBO now POD #2 s/p robotic assisted laparoscopic hernia repair with mesh with release of SBO with anastomosis. -NPO, with sips and chips -surgery done by Dr. Boston -zofran PRN Q6HP -30Q6H toradol for severe pain -Continue empiric cipro 400mg IV BID -protonix 40mg IV BID Asthma: -continue home montelukast GERD: -On IV PPI BID DVT ppx: lovenox, TEDs and SCDs DIspo: inpatient VS,Fishbone, I+O VS, Fishbone, I+O Laboratory Tests 09/04/20 05:50 Vital Signs Date Time Temp Pulse Resp B/P (MAP) Pulse Ox O2 Delivery O2 Flow Rate FiO2 09/04/20 04:20 18 Room Air 09/04/20 04:07 97.8 109 113/63 (80) 94 2.0 I&O- Last 24 Hours up to 6 AM 09/04/20 06:00 Intake Total 1440 ml Output Total 500 ml Balance 940 ml FELIPE HOLLY MD Sep 04, 2020 07:59
--- NOTE | 2020-09-04 17:34 | IPNPDOC ---
Text Note Date of Service The patient was seen on 09/04/20. NOTE Patient still not passing any flatus, burping a lot. She denies any nausea, fe els very thirsty. Reports sore in her abdomen otherwise denies any shortness of breath, cough, colds, chest pain Vital signs stable Examination Patient laying on bed, relatively comfortable Lungs are clear to auscultation bilaterally, anteriorly Regular heart rate and rhythm Abdomen is moderately obese, hard to delineate the degree of distention was still feels mildly distended, tympanitic to percussion. Multiple laparoscopic port sites are covered with dry gauze. Mild chronic appearing edema over her lower pannus. Mild tender on the midline lower abdomen without rebound or guarding Impression and plan She is now postop day 2 following robotic-assisted laparoscopic repair of a lower midline incisional hernia small bowel resection of the strangulated piece of bowel. Still looks distended. I don't think she is ready yet to be advanced. She was advised to try to get up, walk around the room given her Covid status, patient is not really allowed to walk to the hallways. Continue with antibiotics. VS,Fishbone, I+O VS, Fishbone, I+O Laboratory Tests 09/04/20 05:50 Vital Signs Date Time Temp Pulse Resp B/P (MAP) Pulse Ox O2 Delivery O2 Flow Rate FiO2 09/04/20 17:07 101.9 104 20 114/74 (87) 91 Room Air 09/04/20 08:44 2.0 l I&O- Last 24 Hours up to 6 AM 09/04/20 06:00 Intake Total 1440 ml Output Total 500 ml Balance 940 ml MARCELA CORREIA MD Sep 04, 2020 17:34
[2020-09-04] MEDS: MONTELUKAST 10 MG TAB PO SCH (19:56)
[2020-09-04] MEDS: ACETAMINOPHEN TAB 650MG DOSE (2X325MG) PO PRN (19:56)
[2020-09-05] VITALS (8 sets, daily range): BP systolic 103–119; BP diastolic 3–71; O2SAT 93–95
[2020-09-05] MEDS: MORPHINE 4 MG/ML 1ML VIAL/SYRINGE (J2270) IV PRN ×4 (00:46→18:13)
[2020-09-05] MEDS: KETOROLAC 30 MG/ML 1ML VIAL IV SCH ×4 (02:53→20:17)
[2020-09-05] MEDS: metroNIDAZOLE 500 MG in IV 1 EA IV SCH ×3 (04:26→22:09)
[2020-09-05] MEDS: ONDANSETRON 4MG/2ML VIAL IV PRN (04:29)
[2020-09-05] MEDS: CIPROFLOXACIN 400 MG in IV 1 EA IV SCH ×2 (05:22→18:12)
[2020-09-05 07:28] LABS: BASO % 0.1 % (0.0-1.0); HEMATOCRIT 39.7 % (36.0-47.0); HEMOGLOBIN 12.9 g/dl (12.0-15.5); LYMPH # 0.4 10^3/uL (1.5-5.0); LYMPH % 5.2 % (24.0-44.0); MEAN CORPUSCULAR HEMOGLOBIN 30.2 pg (27.0-33.0); MEAN CORPUSCULAR HGB CONC 32.5 g/dl (32.0-36.5); MONO # 0.2 10^3/uL (0.0-0.8); MONO % 3.3 % (2.0-8.0); NEUTROPHILS # 6.1 10^3/uL (1.5-8.5); NEUTROPHILS % 90.8 % (36.0-66.0); PLATELET COUNT, AUTOMATED 227 10^3/uL (150-450); RED BLOOD COUNT 4.27 10^6/uL (4.00-5.40); WHITE BLOOD COUNT 6.7 10^3/uL (4.0-10.0)
[2020-09-05] MEDS: PANTOPRAZOLE 40MG VIAL (C9113 PER 1) IV SCH ×2 (07:42→20:16)
[2020-09-05] MEDS: ENOXAPARIN 40MG/0.4ML SYRINGE (J1650 PER 10MG) SC SCH (07:43)
[2020-09-05 07:56] LABS: ALBUMIN 2.1 GM/DL (3.2-5.2); ALT/SGPT 42 U/L (12-78); BILIRUBIN,DIRECT 0.3 MG/DL (0.0-0.2); BILIRUBIN,TOTAL 0.5 MG/DL (0.2-1.0); BLOOD UREA NITROGEN 17 MG/DL (7-18); CALCIUM LEVEL 8.1 MG/DL (8.5-10.1); CARBON DIOXIDE LEVEL 27 MEQ/L (21-32); CHLORIDE LEVEL 99 MEQ/L (98-107); CREATININE FOR GFR 0.74 MG/DL (0.55-1.30); GLOMERULAR FILTRATION RATE > 60.0 (>51); GLUCOSE, FASTING 114 MG/DL (70-100); MAGNESIUM LEVEL 2.5 MG/DL (1.8-2.4); POTASSIUM SERUM 3.4 MEQ/L (3.5-5.1); SODIUM LEVEL 135 MEQ/L (136-145); TOTAL PROTEIN 5.6 GM/DL (6.4-8.2)
[2020-09-05] MEDS ORDERED: METOPROLOL 5 MG/5 ML VIAL IV STA (09:33)
[2020-09-05] MEDS: NS 1,000 ML IV SCH (09:49)
[2020-09-05] MEDS: KCL 10MEQ/100ML SWI (KRUN) 10 MEQ in IV 1 EA IV SCH ×4 (09:53→18:12)
--- NOTE | 2020-09-05 09:53 | ECGEPIP ---
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
[2020-09-05] MEDS ORDERED: METOPROLOL TART 25 MG TABLET PO SCH (10:00)
--- NOTE | 2020-09-05 10:05 | ECGEPIP ---
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
--- NOTE | 2020-09-05 10:53 | IPNPDOC ---
Text Note Date of Service The patient was seen on 09/05/20. NOTE SUBJECTIVE: -Asymptomatic but tachycardic to 160s this morning --> EKG showed Afib w/ RVR --> metop 5 IV once --> conversion back to sinus --> now on PO metop 12.5 Q6H and telemetry -POD3 s/p lap hernia repair with mesh, small bowel resection with anastomosis -Has abdominal pain, mild nausea and burping, no emesis, no flatus or BMs yet, still NPO PHYSICAL EXAMINATION: VITAL SIGNS: see below. HDS, afebrile, breathing comfortably on room air GENERAL APPEARANCE: morbidly obese, NAD HEENT: NCAT, wearing face mask, on removal, no facial plethora, PERRLA, EOMI, anicteric, no injection, MMM CARDIOVASCULAR: Irregularly irregular at the time of my examination, no m/r/g LUNGS: CTAB without rales, rhonchi or wheezing at this time ABDOMEN: Hypoactive, pain with palpation, soft but distended abdomen, obese, lap sites c/d/i EXTREMITIES: WWP, no LE edema NEUROLOGICAL: CN 2 - 12 intact, moving extremities spontaneously PSYCHIATRIC: AOx3 LABORATORY DATA: reviewed WBC 6.7 hgb 12.9 platelets 227 Mag 2.5 K 3.4 Cr 0.74 MICROBIOLOGY: Please see below. ASSESSMENT: 50 yo W with morbid obesity s/p gastric sleeve surgery in 07/2019, a history of DM and longstanding ventral hernia who presented for severe related hernia related pain i/s/o of N/V and found to have covd-19 infection and incarcerated hernia with an SBO now s/p POD3 post robotic assisted laparoscopic hernia repair with mesh with release of SBO with anastomosis. PLAN: Covid-19 infection: -No pulmonary symptoms as of yet, all her symptoms have been GI related with N/V and likely precipitated likely incarceration of hernia and SBO from repeated abdominal muscle use during dry heaving -q4h O2 sats -droplet precaution -lovenox 40mg daily for DVT ppx -daily CBC, BMP -Q2D ddimer, ferritin, fibrinogen, LDH, CRP -zofran PRN for nausea -fluids at 125cc/hr JAQUELINE: -nocturnal O2 Anterior abdominal wall hernia containing inflamed fat, dilated small bowel loops with a transition point noted c/b SBO now POD #2 s/p robotic assisted laparoscopic hernia repair with mesh with release of SBO with anastomosis. -NPO, with sips and chips -surgery done by Dr. Darvin brannon PRN Q6HP -30Q6H toradol for severe pain -Continue empiric cipro 400mg IV BID -protonix 40mg IV BID Newly noted transient Afib w/ RVR: -telemetry -K repletion -Mag wnl -s/p metop 5mg IV once and converted back to sinus, now on 12.5 Q6H PO metop Asthma: -continue home montelukast GERD: -On IV PPI BID DVT ppx: lovenox, TEDs and SCDs DIspo: inpatient VS,Fishbone, I+O VS, Fishbone, I+O Laboratory Tests 09/05/20 07:07 Vital Signs Date Time Temp Pulse Resp B/P (MAP) Pulse Ox O2 Delivery O2 Flow Rate FiO2 09/05/20 04:41 18 Nasal Cannula 09/05/20 04:00 98.2 105 112/71 (85) 95 09/05/20 00:56 2.0 I&O- Last 24 Hours up to 6 AM 09/05/20 05:59 Intake Total 920 ml Output Total 710 ml Balance 210 ml FELIPE HOLLY MD Sep 05, 2020 09:16
[2020-09-05] MEDS: METOPROLOL TART 12.5 MG PER 1/2 TAB PO SCH ×2 (10:59→18:12)
[2020-09-05] MEDS: MONTELUKAST 10 MG TAB PO SCH (20:17)
--- NOTE | 2020-09-05 22:16 | IPNPDOC ---
Text Note Date of Service The patient was seen on 09/05/20. NOTE Patient had SVT overnight, febrile episode last night, still not passing any f latus, feels nauseated VS: afebrile Exam: Patient sitting up chair, mildly uncomfortable in appearance dry lips lungs clear bilaterally tachycardic, 120s regular rhythm abdomen obese, moderately distended, seems more prominent at epigastric, tympanitic to percussion mild tenderness lower abdomen Impression and plan POD3 rTAPP lower midline hernia with 15x10 progrip mesh, small bowel resection I placed an NGT to decompress abdomen which I think is contributing to the discomfort, SVT. continue abx VS,Fishbone, I+O VS, Fishbone, I+O Laboratory Tests 09/05/20 07:07 Vital Signs Date Time Temp Pulse Resp B/P (MAP) Pulse Ox O2 Delivery O2 Flow Rate FiO2 09/05/20 20:00 98.3 100 24 111/58 (75) 93 Nasal Cannula 2.0 I&O- Last 24 Hours up to 6 AM 09/05/20 06:00 Intake Total 920 ml Output Total 710 ml Balance 210 ml MARCELA CORREIA MD Sep 05, 2020 22:16
[2020-09-06] VITALS (9 sets, daily range): BP systolic 102–129; BP diastolic 52–65; O2SAT 81–96
[2020-09-06] MEDS: MORPHINE 4 MG/ML 1ML VIAL/SYRINGE (J2270) IV PRN ×5 (00:02→20:19)
[2020-09-06] MEDS: METOPROLOL TART 12.5 MG PER 1/2 TAB PO SCH ×5 (00:03→23:33)
[2020-09-06] MEDS: NS 1,000 ML IV SCH (00:03)
[2020-09-06] MEDS: KETOROLAC 30 MG/ML 1ML VIAL IV SCH ×4 (01:39→20:19)
[2020-09-06] MEDS: metroNIDAZOLE 500 MG in IV 1 EA IV SCH ×3 (05:13→23:18)
[2020-09-06] MEDS: CIPROFLOXACIN 400 MG in IV 1 EA IV SCH ×2 (06:21→17:43)
[2020-09-06 07:52] LABS: BASO % 0.2 % (0.0-1.0); HEMATOCRIT 36.5 % (36.0-47.0); HEMOGLOBIN 11.7 g/dl (12.0-15.5); LYMPH # 0.3 10^3/uL (1.5-5.0); LYMPH % 8.2 % (24.0-44.0); MEAN CORPUSCULAR HEMOGLOBIN 30.1 pg (27.0-33.0); MEAN CORPUSCULAR HGB CONC 32.1 g/dl (32.0-36.5); MEAN CORPUSCULAR VOLUME 93.8 fl (80.0-96.0); MONO # 0.2 10^3/uL (0.0-0.8); MONO % 4.8 % (2.0-8.0); NEUTROPHILS # 3.6 10^3/uL (1.5-8.5); NEUTROPHILS % 85.8 % (36.0-66.0); PLATELET COUNT, AUTOMATED 197 10^3/uL (150-450); RED BLOOD COUNT 3.89 10^6/uL (4.00-5.40); WHITE BLOOD COUNT 4.2 10^3/uL (4.0-10.0)
[2020-09-06 08:09] LABS: BLOOD UREA NITROGEN 16 MG/DL (7-18); CALCIUM LEVEL 7.8 MG/DL (8.5-10.1); CARBON DIOXIDE LEVEL 29 MEQ/L (21-32); CHLORIDE LEVEL 101 MEQ/L (98-107); CREATININE FOR GFR 0.53 MG/DL (0.55-1.30); GLOMERULAR FILTRATION RATE > 60.0 (>51); GLUCOSE, FASTING 124 MG/DL (70-100); MAGNESIUM LEVEL 2.8 MG/DL (1.8-2.4); POTASSIUM SERUM 3.8 MEQ/L (3.5-5.1); SODIUM LEVEL 135 MEQ/L (136-145)
[2020-09-06] MEDS: ENOXAPARIN 40MG/0.4ML SYRINGE (J1650 PER 10MG) SC SCH (08:56)
[2020-09-06] MEDS: PANTOPRAZOLE 40MG VIAL (C9113 PER 1) IV SCH ×2 (08:56→23:10)
--- NOTE | 2020-09-06 11:00 | IPNPDOC ---
Text Note Date of Service The patient was seen on 09/06/20. NOTE SUBJECTIVE: -Remains in sinus -POD4 s/p lap hernia repair with mesh, small bowel resection with anastomosis -Has abdominal pain, mild nausea and burping, no emesis, no flatus or BMs yet, still NPO and had NGT placed last night PHYSICAL EXAMINATION: VITAL SIGNS: see below. HDS, afebrile, breathing comfortably on room air GENERAL APPEARANCE: morbidly obese, NAD HEENT: NCAT, wearing face mask, on removal, no facial plethora, PERRLA, EOMI, anicteric, no injection, has white patches on tongue and buccal mucosa CARDIOVASCULAR: Irregularly irregular at the time of my examination, no m/r/g LUNGS: R base with crackles, clear left, no rhonchi or wheezing at this time ABDOMEN: Hypoactive, pain with palpation, soft but distended abdomen, obese, lap sites c/d/i EXTREMITIES: WWP, no LE edema NEUROLOGICAL: CN 2 - 12 intact, moving extremities spontaneously PSYCHIATRIC: AOx3 LABORATORY DATA: reviewed MICROBIOLOGY: Please see below. ASSESSMENT: 50 yo W with morbid obesity s/p gastric sleeve surgery in 07/2019, a history of DM and longstanding ventral hernia who presented for severe related hernia related pain i/s/o of N/V and found to have covd-19 infection and incarcerated hernia with an SBO now s/p POD3 post robotic assisted laparoscopic hernia repair with mesh with release of SBO with anastomosis with course c/b transient Aflutter/fib with RVR. PLAN: Covid-19 infection: -No pulmonary symptoms as of yet, all her symptoms have been GI related with N/V and likely precipitated likely incarceration of hernia and SBO from repeated abdominal muscle use during dry heaving -q4h O2 sats -droplet precaution -lovenox 40mg daily for DVT ppx -daily CBC, BMP -Q2D ddimer, ferritin, fibrinogen, LDH, CRP -zofran PRN for nausea -fluids at 75cc/hr JAQUELINE: -nocturnal O2 Anterior abdominal wall hernia containing inflamed fat, dilated small bowel loops with a transition point noted c/b SBO now POD #2 s/p robotic assisted laparoscopic hernia repair with mesh with release of SBO with anastomosis. -NPO, now with NGT -surgery done by Dr. Boston -zofran PRN Q6HP -30Q6H toradol for severe pain -Continue empiric cipro/flagyl IV BID -protonix 40mg IV BID Transient Afib w/ RVR, now sinus: -telemetry -K repletion -Mag wnl -Continue metop 12.5 Q6H PO Oral candidiasis: -nystatin swish and spit -magic mouthwash -fluconazole 200 IV for 3d Asthma: -continue home montelukast GERD: -On IV PPI BID DVT ppx: lovenox, TEDs and SCDs DIspo: inpatient VS,Fishbone, I+O VS, Fishbone, I+O Laboratory Tests 09/06/20 07:24 Vital Signs Date Time Temp Pulse Resp B/P (MAP) Pulse Ox O2 Delivery O2 Flow Rate FiO2 09/06/20 05:32 20 09/06/20 05:13 98 115/65 09/06/20 04:00 98.0 92 Nasal Cannula 2.0 I&O- Last 24 Hours up to 6 AM 09/06/20 06:00 Intake Total 2390 ml Output Total 2750 ml Balance -360 ml FELIPE HOLLY MD Sep 06, 2020 08:11
[2020-09-06] MEDS ORDERED: MAGIC MOUTHWASH SUSPENSION BTL SS PRN (13:00)
[2020-09-06] MEDS: FLUCONAZOLE 200 MG in IV 1 EA IV SCH (13:21)
[2020-09-06] MEDS: NYSTATIN 500,000 U/5 ML SUSP UDC SS SCH ×3 (13:21→23:33)
--- NOTE | 2020-09-06 18:14 | REP ---
INDICATION: new hypoxemia. COMPARISON: 09/01/2020. TECHNIQUE: SINGLE PORTABLE AP VIEW OF THE CHEST WAS PERFORMED. FINDINGS: There are new diffuse bilateral infiltrates left greater than right. Dense infiltrates obscure the cardiomediastinal silhouette. There is a nasogastric tube traversing into the stomach. IMPRESSION: New diffuse bilateral infiltrates left greater than right. <Electronically signed by Ruy Taylor > 09/06/20 [id number]
[2020-09-06] MEDS ORDERED: methylPREDNISolone 125MG 2ML VIAL IV ONE (18:15)
[2020-09-06] MEDS ORDERED: ISOVUE-370 76% 100ML VIAL As Ordered ONE (18:33)
[2020-09-06] MEDS ORDERED: REMDESIVIR 200 MG in NS 250 ML IV ONE (20:00)
--- NOTE | 2020-09-06 20:04 | REPVR ---
PROCEDURE INFORMATION: Exam: CTA Chest With Contrast Exam date and time: 09/06/2020 7:09 PM Age: 50 years old Clinical indication: Other: Hypoxemia; Additional info: R/O pe for sudden hypoxemia TECHNIQUE: Imaging protocol: Computed tomographic angiography of the chest with contrast. 3D rendering (Not supervised by radiologist): MIP and/or 3D reconstructed images were created by the technologist. Radiation optimization: All CT scans at this facility use at least one of these dose optimization techniques: automated exposure control; mA and/or kV adjustment per patient size (includes targeted exams where dose is matched to clinical indication); or iterative reconstruction. Contrast material: ISOVUE 370; Contrast volume: 75 ml; Contrast route: INTRAVENOUS (IV); COMPARISON: [facility] PORTABLE CHEST X-RAY 09/06/2020 5:04 PM FINDINGS: Pulmonary arteries: Suboptimal examination secondary to bolus timing for pulmonary embolism study. Aorta: Unremarkable. No aortic aneurysm. No aortic dissection. Lungs: Diffuse ground-glass opacities in bilateral lungs. Nasogastric tube with its tip in the stomach. Pleural spaces: Unremarkable. No pneumothorax. No pleural effusion. Heart: Unremarkable. No cardiomegaly. No pericardial effusion. Lymph nodes: Unremarkable. No enlarged lymph nodes. Bones/joints: Unremarkable. No acute fracture. Soft tissues: Unremarkable. IMPRESSION: Suboptimal examination secondary to bolus timing for pulmonary embolism study. However no filling defect in the major pulmonary arteries. Bilateral diffuse ground-glass opacities. Findings consistent with patient's history of COVID-19 pneumonia. Electronically signed by: Donovan Jackman On 09/06/2020 20:05:08 PM
[2020-09-06 20:25] LABS: HEMATOCRIT 39.4 % (36.0-47.0); HEMOGLOBIN 12.7 g/dl (12.0-15.5); MEAN CORPUSCULAR HEMOGLOBIN 30.2 pg (27.0-33.0); MEAN CORPUSCULAR HGB CONC 32.2 g/dl (32.0-36.5); MEAN CORPUSCULAR VOLUME 93.6 fl (80.0-96.0); PLATELET COUNT, AUTOMATED 229 10^3/uL (150-450); RED BLOOD COUNT 4.21 10^6/uL (4.00-5.40); WHITE BLOOD COUNT 4.7 10^3/uL (4.0-10.0)
[2020-09-06 20:35] LABS: ANISOCYTOSIS 1+; LYMPHOCYTES 13 % (16-44); MONOCYTES 3 % (0-5); NEUTROPHILS 83 % (28-66); PLATELET ESTIMATE NORMAL (NORMAL)
[2020-09-06] MEDS: MONTELUKAST 10 MG TAB PO SCH (21:00)
[2020-09-06 21:02] LABS: BLOOD UREA NITROGEN 13 MG/DL (7-18); CALCIUM LEVEL 7.8 MG/DL (8.5-10.1); CARBON DIOXIDE LEVEL 29 MEQ/L (21-32); CHLORIDE LEVEL 100 MEQ/L (98-107); CREATININE FOR GFR 0.47 MG/DL (0.55-1.30); FERRITIN 1649 NG/ML (8-252); GLOMERULAR FILTRATION RATE > 60.0 (>51); GLUCOSE, FASTING 100 MG/DL (70-100); LDH LACTATE DEHYDROGENASE 470 U/L (84-246); NT-PRO BNP 434 PG/ML (<125); POTASSIUM SERUM 3.6 MEQ/L (3.5-5.1); SODIUM LEVEL 136 MEQ/L (136-145); TROPONIN I < 0.02 NG/ML (< 0.10)
[2020-09-06 21:38] LABS: ABG BASE EXCESS 0.3 (-2.0-2.0); ABG HCO3 24.6 MEQ/L (22.0-26.0); ABG O2 SATURATION 91.3 % (95.0-99.0); ABG PARTIAL PRESSURE CO2 38.4 mmHg (35.0-45.0); ABG PARTIAL PRESSURE O2 61.9 mmHg (75.0-100.0); ABG STANDARD HCO3 24.6 MEQ/L (22.0-26.0); ABG TOTAL CO2 25.8 MEQ/L (22.0-29.0); ABG pH (ARTERIAL) 7.424 UNITS (7.350-7.450)
[2020-09-06] MEDS ORDERED: SODIUM CHLORIDE 0.9% INJ 10 ML SYR IV ONE (22:00)
[2020-09-07] VITALS (29 sets, daily range): BP systolic 109–137; BP diastolic 56–87; O2SAT 86–96
[2020-09-07] MEDS: KETOROLAC 30 MG/ML 1ML VIAL IV SCH ×4 (03:22→20:20)
[2020-09-07] MEDS: metroNIDAZOLE 500 MG in IV 1 EA IV SCH ×3 (05:08→21:56)
[2020-09-07] MEDS: METOPROLOL TART 12.5 MG PER 1/2 TAB PO SCH ×4 (05:08→22:55)
[2020-09-07 05:17] LABS: HEMOGLOBIN 12.3 g/dl (12.0-15.5); MEAN CORPUSCULAR HEMOGLOBIN 29.4 pg (27.0-33.0); MEAN CORPUSCULAR HGB CONC 31.5 g/dl (32.0-36.5); MEAN CORPUSCULAR VOLUME 93.3 fl (80.0-96.0); PLATELET COUNT, AUTOMATED 241 10^3/uL (150-450); RED BLOOD COUNT 4.18 10^6/uL (4.00-5.40); WHITE BLOOD COUNT 4.9 10^3/uL (4.0-10.0)
[2020-09-07 05:41] LABS: ALT/SGPT 66 U/L (12-78); BILIRUBIN,DIRECT 0.2 MG/DL (0.0-0.2); BILIRUBIN,TOTAL 0.3 MG/DL (0.2-1.0); BLOOD UREA NITROGEN 15 MG/DL (7-18); CALCIUM LEVEL 8.1 MG/DL (8.5-10.1); CARBON DIOXIDE LEVEL 29 MEQ/L (21-32); CHLORIDE LEVEL 106 MEQ/L (98-107); CREATININE FOR GFR 0.47 MG/DL (0.55-1.30); GLOMERULAR FILTRATION RATE > 60.0 (>51); GLUCOSE, FASTING 145 MG/DL (70-100); SODIUM LEVEL 140 MEQ/L (136-145); TOTAL PROTEIN 5.5 GM/DL (6.4-8.2)
[2020-09-07] MEDS: NYSTATIN 500,000 U/5 ML SUSP UDC SS SCH ×4 (06:05→23:03)
[2020-09-07] MEDS: CIPROFLOXACIN 400 MG in IV 1 EA IV SCH (06:06)
[2020-09-07] MEDS: dexameTHASONE 4 MG/ML 1ML VIAL (J1100 PER 1MG) IV SCH (08:52)
[2020-09-07] MEDS: ENOXAPARIN 40MG/0.4ML SYRINGE (J1650 PER 10MG) SC SCH (08:53)
[2020-09-07] MEDS: ASPIRIN 81MG ENTERIC TABLET PO SCH (08:53)
[2020-09-07] MEDS: PANTOPRAZOLE 40MG VIAL (C9113 PER 1) IV SCH ×2 (08:53→20:21)
--- NOTE | 2020-09-07 09:29 | IPNPDOC ---
Text Note Date of Service The patient was seen on 09/07/20. NOTE Subjective: Patient is a 50-year-old female who presented to the hospital 08/04 with a chief complaint of abdominal pain. Patient reported to urgent care the day prior with abdominal pain and was tested positive for Covid 19. Patient's abdominal pain was attributed to this diagnosis. Patient states that the abdominal pain was worsening so she reported emergency department where she was found to have an incarcerated hernia. General surgery was consult added and performed a robotic-assisted hernia repair and small bowel resection on 09/02/2020. Patient has remained nothing by mouth but recently started passing mucousy stool. Patient says her belly pain is much improved today and she is feeling hungry. Patient initially did not have any symptoms of Covid 19 however, over the past few days her symptoms worsen requiring her to be maxed out on Vapotherm. Overnight, patient was maxed out on Vapotherm and was still hypoxic and was transferred to the ICU and placed on CPAP. Patient maxed out on CPAP at a pressure of 16 and FiO2 of 100. Patient is tolerating CPAP at this time at a pressure of 16 and FiO2 of 90. Patient says she does not feel short of breath. Patient denies having any fevers or chills. Patient is feeling otherwise well today. Physical exam: Vitals: See below General: Alert and oriented female patient who is sitting in the bedside chair when I walked into the room. Patient has NG tube in place as well as CPAP mask on her face. Patient is able to answer questions appropriately however, due to the massive these answers are muffled. Patient does not appear to be in any acute distress and is tolerating the mask well. HEENT: Normocephalic, atraumatic, moist mucous membranes. Neck: No lymphadenopathy or thyromegaly Cardiac: Regular rate and rhythm, no murmurs, normal S1, normal S2 Pulm: Inspiratory rhonchi are present throughout the lung nuñez. No wheezes or crackles Abd: Mildly tender to palpation. Incisions are healing well without surrounding erythema or drainage. Steri-Strips are in place over the incisions. Patient does have normal bowel sounds Ext: No edema bilateral lower extremities Labs: See below Imaging: Patient had a chest x-ray performed on 09/06/2020 which was reported to show new diffuse bilateral infiltrates left greater than right. Patient had a CT angiogram of the chest performed on 09/06/2020 which was repor gilberto to show suboptimal examination secondary to bolus timing for pulmonary embolus study. However, no filling defect in the major pulmonary arteries. Bilateral diffuse groundglass opacities. Findings consistent with patient's history of Covid 19 pneumonia Assessment/plan: Patient is a 50-year-old female who presented to the hospital with increasing abdominal pain was diagnosed with a small bowel obstruction secondary to incarcerated incisional hernia who subsequently diagnosed with Covid 19. P atient's respiratory status deteriorated overnight requiring the patient to be placed on CPAP therapy. 1. Covid 19 infection. Patient's pulse ox and breathing deteriorated overnight. Patient was transitioned from Vapotherm over to CPAP was transferred to the ICU last night. Patient's oxygen saturations are above 92% currently on CPAP of 16 cm of water with an FiO2 of 90%. Plan is try to wean the patient's CPAP therapy off. Patient had CT angiogram of the chest which did not show any pulmonary e mbolism at this time. Patient is currently on Remdesivir and dexamethasone. Patient received a dose of Remdesivir last night and received her first dose of dexamethasone 6 mg IV this morning. We will continue to try and wean the patient off CPAP therapy and back on Vapotherm and we'll continue to monitor the patient's respiratory status. 2. Anterior abdominal wall hernia repair. Dr. Boston took the patient to the operating room on 09/02/2020 for a robotic assist left incisional hernia repair with mesh and early small bowel obstruction with anastomosis. Patient still has NG tube in place and has been nothing by mouth since surgery. Patient did receive a dose of Toradol this morning. Patient will continue with ciprofloxacin and metronidazole to protect the mesh since patient had a bowel obstruction. Diet advanced per surgery and we appreciate Dr. Boston's help in treating this patient. Spoke with Dr. Boston who stated that we can discontinue ciprofloxacin and metronidazole if we are not using those treat any other infection as he was using those as prophylaxis for his mesh. We'll discontinue the antibiotics at this time. 3. Obstructive sleep apnea. Patient will continue on her home nocturnal oxygen when she is completely weaned off her oxygen therapy for Covid 19. 4. History of atrial fibrillation. Patient is currently in sinus rhythm and we'll continue to monitor the patient's heart rate on telemetry. Patient is currently on metoprolol 12.5 mg every 6 hours. 5. Oral candidiasis patient was given 1 dose of IV fluconazole yesterday which will be continued for 3 days with last dose on 09/08/2020. DVT Prophylaxis: Lovenox Disposition: Pending patient's clinical improvement of her Covid 19 as well as surgery's recommendations for advancing her diet. VS,Fishbone, I+O VS, Fishbone, I+O Laboratory Tests 09/06/20 19:50 09/07/20 04:59 Vital Signs Date Time Temp Pulse Resp B/P (MAP) Pulse Ox O2 Delivery O2 Flow Rate FiO2 09/07/20 06:00 73 111/65 (80) 97 09/07/20 04:00 96.8 NIPPV (BIPAP/CPAP) 100.0 09/07/20 04:00 100 09/07/20 03:00 26 I&O- Last 24 Hours up to 6 AM 09/07/20 05:59 Intake Total 1360 ml Output Total 3775 ml Balance -2415 ml GME ATTESTATION GME ATTESTATION My faculty preceptor for this patient encounter was physically present during the encounter and was fully available. All aspects of the patient interview, examination, medical decision making process, and medical care plan development were reviewed and approved by the faculty preceptor. The faculty preceptor is aware and concurs with the plan as stated in the body of this note and will attest to such by his/her cosignature. ATTENDING NOTE I, Raúl Apodaca MD, have independently examined this patient and performed my own physical exam, as well as reviewed the documentation and edited where necessary. I have discussed in detail with the resident / student the findings and plan of treatment as documented by the resident / student and edited their note. I agree with their findings and treatment plan and have edited their documentation. YU BARRAGAN DO Sep 07, 2020 09:29 RAÚL APODACA MD Sep 10, 2020 15:00
[2020-09-07] MEDS: FLUCONAZOLE 200 MG in IV 1 EA IV SCH (13:26)
[2020-09-07] MEDS: MORPHINE 4 MG/ML 1ML VIAL/SYRINGE (J2270) IV PRN ×2 (14:50→22:56)
[2020-09-07] MEDS ORDERED: TOCILIZUMAB 800 MG in NS 60 ML IV ONE (16:00)
[2020-09-07] MEDS: REMDESIVIR 100 MG in NS 250 ML IV SCH (20:20)
[2020-09-07] MEDS: MONTELUKAST 10 MG TAB PO SCH (20:22)
[2020-09-07] MEDS: SODIUM CHLORIDE 0.9% INJ 10 ML SYR IV SCH (21:57)
[2020-09-08] VITALS (12 sets, daily range): BP systolic 120–149; BP diastolic 57–71; O2SAT 89–95
[2020-09-08] MEDS: KETOROLAC 30 MG/ML 1ML VIAL IV SCH ×2 (03:29→07:27)
[2020-09-08 04:56] LABS: HEMATOCRIT 39.4 % (36.0-47.0); HEMOGLOBIN 12.4 g/dl (12.0-15.5); MEAN CORPUSCULAR HEMOGLOBIN 29.4 pg (27.0-33.0); MEAN CORPUSCULAR HGB CONC 31.5 g/dl (32.0-36.5); MEAN CORPUSCULAR VOLUME 93.4 fl (80.0-96.0); PLATELET COUNT, AUTOMATED 286 10^3/uL (150-450); RED BLOOD COUNT 4.22 10^6/uL (4.00-5.40); WHITE BLOOD COUNT 5.2 10^3/uL (4.0-10.0)
[2020-09-08 05:35] LABS: INR 1.07; PROTHROMBIN TIME 14.1 SECONDS (12.5-14.3)
[2020-09-08 05:36] LABS: PARTIAL THROMBOPLASTIN TIME 32.2 SECONDS (24.2-38.5)
[2020-09-08] MEDS: metroNIDAZOLE 500 MG in IV 1 EA IV SCH (05:37)
[2020-09-08] MEDS: NYSTATIN 500,000 U/5 ML SUSP UDC SS SCH ×4 (05:38→23:58)
[2020-09-08] MEDS: METOPROLOL TART 12.5 MG PER 1/2 TAB PO SCH ×4 (05:38→23:58)
[2020-09-08 05:44] LABS: ALBUMIN 1.8 GM/DL (3.2-5.2); ALT/SGPT 53 U/L (12-78); BILIRUBIN,DIRECT < 0.1 MG/DL (0.0-0.2); BILIRUBIN,TOTAL 0.4 MG/DL (0.2-1.0); BLOOD UREA NITROGEN 18 MG/DL (7-18); CALCIUM LEVEL 8.5 MG/DL (8.5-10.1); CARBON DIOXIDE LEVEL 28 MEQ/L (21-32); CHLORIDE LEVEL 107 MEQ/L (98-107); CPK CREATINE PHOSPHOKINASE 233 U/L (26-192); CREATININE FOR GFR 0.37 MG/DL (0.55-1.30); FERRITIN 1892 NG/ML (8-252); GLOMERULAR FILTRATION RATE > 60.0 (>51); GLUCOSE, FASTING 121 MG/DL (70-100); LDH LACTATE DEHYDROGENASE 909 U/L (84-246); NT-PRO BNP 822 PG/ML (<125); POTASSIUM SERUM 5.7 MEQ/L (3.5-5.1); SODIUM LEVEL 139 MEQ/L (136-145); TOTAL PROTEIN 6.4 GM/DL (6.4-8.2); TROPONIN I 0.03 NG/ML (< 0.10)
--- NOTE | 2020-09-08 06:59 | IPN ---
PROGRESS NOTE DATE: 09/06/2020 SUBJECTIVE: Patient is now postop day #4 from a robotic-assisted laparoscopic repair of an incarcerated strangulated ventral incisional hernia with a bowel obstruction. She underwent repair of her hernia with mesh and also a small bowel resection with anastomosis. She was continued on antibiotics postop to try to protect her prosthetic mesh. She had been diagnosed with COVID-19 the day before admission for her hernia. She has generally remained quite stable. She required placement of an NG-tube over the weekend because of some emesis. Vital signs shows that she has remained afebrile over the past 24 hours. Her pulse is in the 70s to low 100s. Her blood pressure has remained good. Intake and output shows that yesterday she had 1930 in with 2300 out. She had 1950 in urine, 300 of NG output and 60 ml of emesis. PHYSICAL EXAMINATION: GENERAL: The patient is awake and alert. She appears quite tired. She seems to be breathing fairly easily. HEART: Regular rhythm. LUNGS: A few scattered crackles on both sides. She has no rhonchi. ABDOMEN: Obese. She appears to have some bruising in the right lower quadrant where her hernia had been located and there is some faint erythema at the midline and extending across the left lower quadrant. Her incisions are closed with Steri-Strips and all appear clean and dry. She does have some bowel sounds present. The abdomen is soft and without undue tenderness. LABORATORY DATA: Laboratory studies show a white count of 5, hemoglobin 13, hematocrit 39, and a platelet count of 229,000. Differential count shows 83% neutrophils, 1 band, 13 lymphocytes and 3 monocytes. Chemistry profile shows sodium 135, potassium 3.8, chloride 101, CO2 29, BUN 16, creatinine 0.53 and a glucose of 124. IMPRESSION: Patient overall appears to be doing fairly well. She has not yet had any return of bowel function. There has been no significant flatus and no bowel movement. She developed some vomiting over the weekend and an NG was placed yesterday. She is tolerating this okay but is having some bilious drainage in the NG cannister. PLAN: Patient will be kept NPO with her NG-tube in place. She will remain on maintenance fluid with the Cipro and Flagyl for now. I encouraged her to be up moving around in her room. Hopefully, she will have a return bowel function soon such that we can remove her NG-tube and begin advancing her diet. KIMYM
--- NOTE | 2020-09-08 07:19 | IPN ---
PROGRESS NOTE DATE: 09/07/2020 HISTORY: The patient is now postoperative day 5 from robotic-assisted repair of a strangulated incisional hernia with a small bowel resection and anastomosis. She had been diagnosed with COVID prior to the admission. Last evening, she showed some evidence of instability from a primarily respiratory standpoint. She was moved to the intensive care unit. She has required significant oxygen support with CPAP with high levels of oxygen. A chest x-ray done last evening shows significant pulmonary infiltrates bilaterally and a CT angiogram was interpreted as showing diffuse ground-glass opacities in bilateral lungs. This finding was felt to be consistent with patient's history of COVID-19 pneumonia. She was started on steroids by the hospitalist. Today, she has had some flatus and had two bowel movements while in the intensive care unit. She apparently is complaining of less discomfort. Vital signs show that she has been afebrile over the past 24 hours. Her pulse is in the 60s and 70s generally. Blood pressure is good. She remains on CPAP versus Vapotherm with supplemental oxygen. Intake and output yesterday shows 1600 in with 4000 out. Her urine output was 1650 with 2300 from her NG tube. PHYSICAL EXAMINATION: The patient is examined in the ICU. She is currently wearing a CPAP mask. She appears awake and alert. She is complaining primarily about the NG tube. Heart exam shows a regular rate in the 70s. She has bilateral breath sounds. The abdomen is obese and soft. She does have active bowel sounds. The bruising in the right lower quadrant and erythema in the left lower quadrant appear similar to yesterday. The bruising is perhaps a little more intense and the redness on the left a little less intense. There is no sign of fluid collection in her hernia sac. LABORATORY: Laboratory studies today show a normal set of electrolytes. BUN is 15 with a creatinine of 0.47 and the glucose is 145. Liver function tests show a minimal elevation of the AST to 93. Protein and albumin are both slightly low at 5.5 and 2.0 respectively. Her CBC showed a white count of 4.9, hemoglobin 12, hematocrit 39 and the platelet count is 241,000. Her D-dimer was greater than 4000 early this morning. IMPRESSION: Patient seems to be resolving her ileus from her surgery for her incarcerated hernia. Her COVID infection has significantly worsened clinically with bilateral pulmonary infiltrates and a requirement for significantly increased oxygen with non-invasive ventilatory support. PLAN: Patient's NG tube will be removed. She will be left on a few sips of clear liquids and ice chips. I advised the resident on the hospitalist service that the Cipro and Flagyl could be stopped at any time. Hopefully, her ventilation will improve with improvement of her COVID-19 infection. We may be able to advance her diet to unlimited clear liquids tomorrow if she tolerates having the NG tube out. KIMMY
[2020-09-08] MEDS: ASPIRIN 81MG ENTERIC TABLET PO SCH ×2 (07:27→07:29)
[2020-09-08] MEDS: PANTOPRAZOLE 40MG VIAL (C9113 PER 1) IV SCH ×2 (07:28→21:16)
[2020-09-08] MEDS: ENOXAPARIN 40MG/0.4ML SYRINGE (J1650 PER 10MG) SC SCH ×2 (07:28→21:16)
[2020-09-08] MEDS: dexameTHASONE 4 MG/ML 1ML VIAL (J1100 PER 1MG) IV SCH (07:28)
[2020-09-08] MEDS: VITAMIN D 1,000 INTERNATIONAL UNITS TABLET PO SCH (09:11)
[2020-09-08] MEDS: ASCORBIC ACID 500 MG TAB PO SCH (09:11)
[2020-09-08 13:09] LABS: BLOOD UREA NITROGEN 19 MG/DL (7-18); CALCIUM LEVEL 8.7 MG/DL (8.5-10.1); CARBON DIOXIDE LEVEL 30 MEQ/L (21-32); CHLORIDE LEVEL 106 MEQ/L (98-107); CREATININE FOR GFR 0.39 MG/DL (0.55-1.30); GLOMERULAR FILTRATION RATE > 60.0 (>51); GLUCOSE, FASTING 123 MG/DL (70-100); POTASSIUM SERUM 4.3 MEQ/L (3.5-5.1); SODIUM LEVEL 140 MEQ/L (136-145)
[2020-09-08] MEDS: MORPHINE 4 MG/ML 1ML VIAL/SYRINGE (J2270) IV PRN (13:25)
[2020-09-08 14:08] LABS: MYCOPLASMA PNEUMONIAE IgG 328 U/mL (0-99); MYCOPLASMA PNEUMONIAE IgM <770 U/mL (0-769)
--- NOTE | 2020-09-08 16:08 | IPNPDOC ---
Text Note Date of Service The patient was seen on 09/08/20. NOTE Subjective: Patient is a 50-year-old female who [facility] with an incarcerated hernia. Patient had been tested positive for Covid 19 on the previous day. Patient did well overnight on CPAP. Patient was able to be off CPAP throughout most of the day yesterday however, because the patient has a history of obstructive sleep apnea, patient needed to be placed back on CPAP. Patient did well overnight but is complaining of some pain over the bridge of her nose today. Patient had her NG tube pulled yesterday and says that she is hungry and is wanting to eat. Patient says she is feeling well and does not feel short of breath. Patient is not having any chest pain. Patient does complain of some mild right lower quadrant abdominal pain. Patient continues to pass gas and had a bowel movement yesterday. Physical exam: Vitals: See below General: Alert and oriented female patient who is sitting with Vapotherm in her nose when I walked in the room. Patient did not appear to be in any acute distress. Patient did appear tired. HEENT: Normocephalic, atraumatic, moist mucous membranes. Neck: No lymphadenopathy or thyromegaly Cardiac: Regular rate and rhythm, no murmurs, normal S1, normal S2 Pulm: Scattered end inspiratory rhonchi present in the patient's lung nuñez. No wheezes or crackles. Abd: Incisions are healing well with Steri-Strips in place. There is no surrounding erythema or drainage. Patient does have some bruising to the lower right side of the abdomen. There is some tenderness overlying this part of the abdomen. There are hypoactive bowel sounds. Ext: No edema bilateral lower extremities Labs: See below Imaging: No new imaging is been performed. Assessment/plan: Malena is a 50-year-old female presents to the hospital with increasing abdominal pain and was diagnosed with a small bowel infarction secondary to incarcerated incisional hernia subsequently was diagnosed with Covid 19. Patient's respira tory status deteriorated 2 nights ago requiring patient was placed on CPAP therapy and transferred to the intensive care unit. 1. Covid 19 infection. Patient's pulse ox was in the upper 80s on Vapotherm patient be transitioned back to CPAP during the day today. Patient is doing well on CPAP therapy. We'll continue with IV dexamethasone and Remdesivir. Patient was given toculizumab yesterday. We'll continue with CPAP therapy and if she is able to be weaned off we will continue with Vapotherm. 2. Anterior wall abdominal hernia. Dr. Boston took the patient to the operating room on 09/02/2020. Patient had her NG tube removed and ciprofloxacin and metronidazole were discontinued. Dr. Boston will advance the diet as the patient continues to progress. Patient is saying that she is hungry. 3. History for sleep apnea. Patient is on CPAP at home and will continue CPAP overnight. 4. History of atrial fibrillation. Patient's currently in sinus rhythm and we will continue to monitor the patient's heart rate. Patient currently on metoprolol 12.5 mg every 6 hours and Lovenox 40 mg twice a day. 5. Oral candidiasis. Patient was given IV fluconazole. Patient will have her last dose today. DVT Prophylaxis: Therapeutic dose Lovenox Disposition: Pending clinical improvement VSLuis, I+O VSLuis, I+O Laboratory Tests 09/08/20 04:30 09/08/20 12:29 Vital Signs Date Time Temp Pulse Resp B/P (MAP) Pulse Ox O2 Delivery O2 Flow Rate FiO2 09/08/20 15:48 100 09/08/20 14:00 59 24 142/63 (89) 94 NIPPV (BIPAP/CPAP) 09/08/20 12:00 40.0 09/08/20 12:00 97.4 I&O- Last 24 Hours up to 6 AM 09/08/20 06:00 Intake Total 1180 ml Output Total 1570 ml Balance -390 ml GME ATTESTATION GME ATTESTATION My faculty preceptor for this patient encounter was physically present during the encounter and was fully available. All aspects of the patient interview, examination, medical decision making process, and medical care plan development were reviewed and approved by the faculty preceptor. The faculty preceptor is aware and concurs with the plan as stated in the body of this note and will attest to such by his/her cosignature. ATTENDING NOTE I, Cecil Apodaca MD, have independently examined this patient and performed my ow n physical exam, as well as reviewed the documentation and edited where necessary. I have discussed in detail with the resident / student the findings and plan of treatment as documented by the resident / student and edited their note. I agree with their findings and treatment plan and have edited their documentation. YU BARRAGAN DO Sep 08, 2020 16:08 CECIL APODACA MD Sep 10, 2020 15:06
[2020-09-08] MEDS: REMDESIVIR 100 MG in NS 250 ML IV SCH (19:49)
[2020-09-08] MEDS: SODIUM CHLORIDE 0.9% INJ 10 ML SYR IV SCH (21:15)
[2020-09-08] MEDS: ONDANSETRON 4MG/2ML VIAL IV PRN (21:15)
[2020-09-08] MEDS: MONTELUKAST 10 MG TAB PO SCH (21:16)
[2020-09-08] MEDS: NORCO, ANEXSIA 5/325MG TABLET (HYDROcodone/ACETAMINOPHEN) PO PRN (21:17)
[2020-09-09] VITALS (25 sets, daily range): BP systolic 118–168; BP diastolic 57–92; O2SAT 88–97
[2020-09-09] MEDS: NORCO, ANEXSIA 5/325MG TABLET (HYDROcodone/ACETAMINOPHEN) PO PRN (04:20)
[2020-09-09 04:54] LABS: HEMATOCRIT 40.9 % (36.0-47.0); HEMOGLOBIN 15.1 g/dl (12.0-15.5); MEAN CORPUSCULAR HEMOGLOBIN 34.1 pg (27.0-33.0); MEAN CORPUSCULAR HGB CONC 36.9 g/dl (32.0-36.5); MEAN CORPUSCULAR VOLUME 92.3 fl (80.0-96.0); PLATELET COUNT, AUTOMATED 347 10^3/uL (150-450); RED BLOOD COUNT 4.43 10^6/uL (4.00-5.40); WHITE BLOOD COUNT 7.2 10^3/uL (4.0-10.0)
[2020-09-09 05:14] LABS: BLOOD UREA NITROGEN 20 MG/DL (7-18); CALCIUM LEVEL 8.5 MG/DL (8.5-10.1); CARBON DIOXIDE LEVEL 31 MEQ/L (21-32); CHLORIDE LEVEL 106 MEQ/L (98-107); CREATININE FOR GFR 0.39 MG/DL (0.55-1.30); GLOMERULAR FILTRATION RATE > 60.0 (>51); GLUCOSE, FASTING 100 MG/DL (70-100); POTASSIUM SERUM 4.2 MEQ/L (3.5-5.1); SODIUM LEVEL 141 MEQ/L (136-145)
[2020-09-09] MEDS: NYSTATIN 500,000 U/5 ML SUSP UDC SS SCH (06:03)
[2020-09-09] MEDS: METOPROLOL TART 12.5 MG PER 1/2 TAB PO SCH ×3 (06:04→20:08)
[2020-09-09] MEDS: ASCORBIC ACID 500 MG TAB PO SCH (09:01)
[2020-09-09] MEDS: dexameTHASONE 4 MG/ML 1ML VIAL (J1100 PER 1MG) IV SCH (09:01)
[2020-09-09] MEDS: VITAMIN D 1,000 INTERNATIONAL UNITS TABLET PO SCH (09:01)
[2020-09-09] MEDS: ENOXAPARIN 40MG/0.4ML SYRINGE (J1650 PER 10MG) SC SCH ×2 (09:02→20:09)
[2020-09-09] MEDS: PANTOPRAZOLE 40MG VIAL (C9113 PER 1) IV SCH ×2 (09:02→20:09)
[2020-09-09 12:53] LABS: ABG BASE EXCESS 4.3 (-2.0-2.0); ABG HCO3 28.3 MEQ/L (22.0-26.0); ABG O2 SATURATION 97.1 % (95.0-99.0); ABG PARTIAL PRESSURE CO2 39.8 mmHg (35.0-45.0); ABG PARTIAL PRESSURE O2 96.1 mmHg (75.0-100.0); ABG STANDARD HCO3 28.3 MEQ/L (22.0-26.0); ABG TOTAL CO2 29.5 MEQ/L (22.0-29.0); ABG pH (ARTERIAL) 7.469 UNITS (7.350-7.450)
[2020-09-09] MEDS ORDERED: TOCILIZUMAB 800 MG in NS 60 ML IV ONE (13:00)
[2020-09-09 14:08] LABS: BODY FLUID CULTURE Not indicated. (.); LEGIONELLA ANTIGEN URINE Negative (Negative); ORGANISM ID Not indicated. (.); SPECIMEN SOURCE Urine (.); URINE STREP PNEUMONIAE ANTIGEN Negative (Negative)
[2020-09-09] MEDS: MORPHINE 4 MG/ML 1ML VIAL/SYRINGE (J2270) IV PRN (14:31)
--- NOTE | 2020-09-09 17:28 | IPNPDOC ---
Text Note Date of Service The patient was seen on 09/09/20. NOTE Subjective: Covid tested +08/31/2020, today is day 9. Patient seen and examined at bedside today. She did well on CPAP overnight, in the morning when she was switched to Vapotherm she could not tolerate it and was maxed out and was switched to CPAP. She is on 16 L/100% FiO2 on CPAP. She looks very tired as she is only having clear liquid diet, her diet will be advanced today per surgery. She reports having mild cough with clear sputum, and abdominal pain at the location of subcutaneous injections. Denies having any chest pain, sore throat, fever, chills, nausea, vomiting, diarrhea. She is continuing to pass gas and had a bowel movement. Due to: Physical exam: Gen.: Patient is alert and oriented in reclined position on CPAP. No acute distress, but patient feels tired. Cardiac: Regular rate and rhythm, no murmurs normal S1 and S2 Respiratory: Scattered inspiratory rhonchi are heard throughout the lung nuñez. No crackles. Abdomen: Incisions are healing well. No surrounding erythema or discharge. She reports to have some pain at the site which she got subcutaneous injections. No tenderness in the rest of the abdomen. Hypoactive bowel sounds. Extremities: No pedal edema noted. Assessment: Patient is a 50-year-old female presented to the hospital with increasing abdominal pain and was diagnosed with a small bowel incarcerated hernia and subsequently underwent surgery. She was diagnosed with Covid 19 one day prior to the presentation to the ED.. Patient's respiratory status deteriorated 3 nights ago requiring patient to place on CPAP therapy and was transferred to the ICU. Covid 19 infection: - Patient is on CPAP on 16 L/100% FiO2, she was tried to wean off of CPAP and was put on Vapotherm but couldn't tolerate that and was put back on CPAP. - She is on day 4 of remedisvir, day 3 of Decadron. - Anticoagulation is on Lovenox 40 mg twice a day. - Patient did receive toculizumab on 09/07/2020, as patient is not improving will give her another dose of toculizumab today. - Today her Decadron was decreased from 6 mg to 4 mg. - Patient in the afternoon was having her respiratory rate and was switched to BiPAP but the ABG did not show any retention of CO2 so she was switched back to CPAP at a higher setting of 18 L/100 FiO2. Incarcerated incisional hernia repair: - Patient did have an robotic surgery for the above on 09/02/2020. - Patient is on clear liquid diet yesterday, her diet will be advanced today as per surgery. JAQUELINE: -Patient on CPAP at home and will continue CPAP overnight as well. Atrial fibrillation: -Patient currently in sinus rhythm and on metoprolol 2.5 mg every 6 hours, Lovenox 40 twice a day. DVT prophylaxis: Lovenox 40 twice a day. Disposition: Pending clinical improvement. VS,Fishbone, I+O VS, Fishbone, I+O Laboratory Tests 09/09/20 04:34 Vital Signs Date Time Temp Pulse Resp B/P (MAP) Pulse Ox O2 Delivery O2 Flow Rate FiO2 09/09/20 16:00 70 09/09/20 16:00 94 NIPPV (BIPAP/CPAP) 09/09/20 16:00 98.1 57 32 139/63 (88) 09/09/20 00:00 I&O- Last 24 Hours up to 6 AM 09/09/20 05:59 Intake Total 1060 ml Output Total 1120 ml Balance -60 ml GME ATTESTATION GME ATTESTATION My faculty preceptor for this patient encounter was physically present during the encounter and was fully available. All aspects of the patient interview, examination, medical decision making process, and medical care plan development were reviewed and approved by the faculty preceptor. The faculty preceptor is aware and concurs with the plan as stated in the body of this note and will attest to such by his/her cosignature. ATTENDING NOTE I, Cecil Apodaca MD, have independently examined this patient and performed my own physical exam, as well as reviewed the documentation and edited where necessary. I have discussed in detail with the resident / student the findings and plan of treatment as documented by the resident / student and edited their note. I agree with their findings and treatment plan and have edited their documentation. Teri Martinez MD Sep 09, 2020 17:28 CECIL APODACA MD Sep 10, 2020 15:14
[2020-09-09] MEDS: REMDESIVIR 100 MG in NS 250 ML IV SCH (20:08)
[2020-09-09] MEDS: MONTELUKAST 10 MG TAB PO SCH (20:09)
[2020-09-09] MEDS: SODIUM CHLORIDE 0.9% INJ 10 ML SYR IV SCH (20:10)
[2020-09-09 21:31] LABS: ABG BASE EXCESS 4.2 (-2.0-2.0); ABG HCO3 27.7 MEQ/L (22.0-26.0); ABG O2 SATURATION 94.7 % (95.0-99.0); ABG PARTIAL PRESSURE CO2 37.3 mmHg (35.0-45.0); ABG PARTIAL PRESSURE O2 72.5 mmHg (75.0-100.0); ABG STANDARD HCO3 28.2 MEQ/L (22.0-26.0); ABG TOTAL CO2 28.8 MEQ/L (22.0-29.0); ABG pH (ARTERIAL) 7.488 UNITS (7.350-7.450)
--- NOTE | 2020-09-09 21:44 | IPN ---
PROGRESS NOTE DATE: 09/09/2020 HISTORY: The patient is now postop day number seven from a laparoscopic repair of her strangulated incisional hernia with resection of a portion of small bowel. She had been diagnosed with COVID-19 prior to admission. Her surgical issues seem to be healing well and she has had a return of bowel function, but today her respiratory status seems to have deteriorated somewhat. She is currently on a BIPAP/CPAP device with 70% oxygen and is breathing at a rate of about 40. Vital signs show that her pulse is in the mid to upper 50's. Blood pressure is good and her pulse oximetry is in the low 90's on her current CPAP settings. Intake and output shows that she has had 870 mL in orally with 1,370 out in urine yesterday. OBJECTIVE: PHYSICAL EXAMINATION: GENERAL APPEARANCE: The patient is wearing the respiratory mask. She is alert and oriented and able to communicate though it is difficult to understand her with the mask on. HEART: Regular rhythm. LUNGS: Breath sounds bilaterally. ABDOMEN: Obese and soft. The bruising in her lower abdomen is stable to improved. LABORATORY STUDIES: Her labs are remarkably stable with a white count of 7. Hemoglobin of 15, hematocrit 41 and a platelet count of 347,000. Chemistry profile shows normal electrolytes with a BUN of 20, creatinine 0.39 and a glucose of 100. IMPRESSION: The patient is doing well from the surgical aspects of her care but her respiratory status remains tenuous. She has received Remdesivir, steroids and received Tocilizumab earlier today. PLAN: I will continue to follow the patient's abdominal incisions. I remain hopeful that her respiratory status will stabilize and improve. KIMMY
[2020-09-09 21:52] LABS: CK-MB VALUE MASS < 1.0 NG/ML (<3.6); CPK CREATINE PHOSPHOKINASE 99 U/L (26-192); MB/CK RELATIVE INDEX 1.01 (< OR =4); TROPONIN I < 0.02 NG/ML (< 0.10)
[2020-09-09] MEDS ORDERED: LORazepam 2 MG/ML VIAL IM STA (21:59)
[2020-09-09] MEDS ORDERED: LORazepam 2 MG/ML VIAL IV STA (22:06)
--- NOTE | 2020-09-09 22:24 | REPVR ---
PROCEDURE INFORMATION: Exam: XR Chest Exam date and time: 09/09/2020 9:37 PM Age: 50 years old Clinical indication: Tachypnea; Patient HX: Sars-cov-2 positive. Hypoxic resp failure; Additional info: Worsening tachypnea in covid+ PT w/ hypoxic resp failure TECHNIQUE: Imaging protocol: XR of the chest. Views: 1 view. COMPARISON: 1. CO PORTABLE CHEST X-RAY 2020-09-06 17:04 2. CR PORTABLE CHEST X-RAY 2020-09-01 09:[address] ANGIO CHEST 2020-09-06 19:12 4. CO PORTABLE CHEST X-RAY 2017-05-17 09:22 FINDINGS: Limitations: Limited by patient's body habitus. Tubes, catheters and devices: Enteric and endotracheal tube have been removed. Lungs: Similar but less focal and more diffuse lung opacities. Pleural spaces: Unremarkable. No pleural effusion. No pneumothorax. Heart/Mediastinum: Unremarkable. No cardiomegaly. Bones/joints: Cervical fusion. IMPRESSION: Similar but less focal and more diffuse lung opacities. Electronically signed by: Dereje Lares On 09/09/2020 22:24:40 PM
[2020-09-10] VITALS (24 sets, daily range): BP systolic 108–172; BP diastolic 55–83; O2SAT 92–98
[2020-09-10] MEDS ORDERED: LORazepam 2 MG/ML VIAL IV STA (04:57)
[2020-09-10 05:43] LABS: HEMATOCRIT 42.3 % (36.0-47.0); HEMOGLOBIN 13.5 g/dl (12.0-15.5); MEAN CORPUSCULAR HEMOGLOBIN 29.4 pg (27.0-33.0); MEAN CORPUSCULAR HGB CONC 31.9 g/dl (32.0-36.5); MEAN CORPUSCULAR VOLUME 92.2 fl (80.0-96.0); PLATELET COUNT, AUTOMATED 339 10^3/uL (150-450); RED BLOOD COUNT 4.59 10^6/uL (4.00-5.40); WHITE BLOOD COUNT 8.3 10^3/uL (4.0-10.0)
[2020-09-10 05:52] LABS: FIBRINOGEN 513 MG/DL (221-452); INR 1.19; PROTHROMBIN TIME 15.4 SECONDS (12.5-14.3)
[2020-09-10 05:53] LABS: PARTIAL THROMBOPLASTIN TIME 28.1 SECONDS (24.2-38.5)
[2020-09-10 06:20] LABS: ALBUMIN 2.3 GM/DL (3.2-5.2); ALT/SGPT 39 U/L (12-78); BILIRUBIN,DIRECT 0.2 MG/DL (0.0-0.2); BILIRUBIN,TOTAL 0.5 MG/DL (0.2-1.0); BLOOD UREA NITROGEN 18 MG/DL (7-18); CALCIUM LEVEL 8.2 MG/DL (8.5-10.1); CARBON DIOXIDE LEVEL 29 MEQ/L (21-32); CHLORIDE LEVEL 106 MEQ/L (98-107); CPK CREATINE PHOSPHOKINASE 105 U/L (26-192); CREATININE FOR GFR 0.43 MG/DL (0.55-1.30); FERRITIN 1269 NG/ML (8-252); GLOMERULAR FILTRATION RATE > 60.0 (>51); GLUCOSE, FASTING 92 MG/DL (70-100); LDH LACTATE DEHYDROGENASE 903 U/L (84-246); NT-PRO BNP 1290 PG/ML (<125); POTASSIUM SERUM 4.2 MEQ/L (3.5-5.1); SODIUM LEVEL 142 MEQ/L (136-145); TOTAL PROTEIN 5.8 GM/DL (6.4-8.2); TROPONIN I 0.02 NG/ML (< 0.10)
[2020-09-10 07:59] LABS: D-DIMER QUANT > 4000 ng/ml (<500)
[2020-09-10] MEDS: PANTOPRAZOLE 40MG VIAL (C9113 PER 1) IV SCH ×2 (08:37→20:06)
[2020-09-10] MEDS: dexameTHASONE 4 MG/ML 1ML VIAL (J1100 PER 1MG) IV SCH (08:37)
[2020-09-10] MEDS: VITAMIN D 1,000 INTERNATIONAL UNITS TABLET PO SCH (08:38)
[2020-09-10] MEDS: ENOXAPARIN 40MG/0.4ML SYRINGE (J1650 PER 10MG) SC SCH (08:38)
[2020-09-10] MEDS: ASCORBIC ACID 500 MG TAB PO SCH (08:38)
[2020-09-10] MEDS: METOPROLOL TART 12.5 MG PER 1/2 TAB PO SCH ×2 (08:39→20:06)
[2020-09-10] MEDS: MORPHINE 4 MG/ML 1ML VIAL/SYRINGE (J2270) IV PRN (08:58)
--- NOTE | 2020-09-10 10:36 | ECGEPIP ---
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 Order Number: [id number] Reading MD: Andrea Jones Measurements Intervals [place] Rate: 62 P: ND: QRS: 50 QRSD: 80 T: 78 QT: 450 QTc: 456 Interpretive Statements Somatic artifact Normal sinus rhythm Slightly low voltages. Conversion from atrial fibrillation with rapid ventricular response 09/05/20 Electronically Signed on 09-10-2020 10:36:19 EDT by Andrea Jones
--- NOTE | 2020-09-10 11:51 | IPNPDOC ---
Text Note Date of Service The patient was seen on 09/10/20. NOTE Subjective: Covid tested positive on 08/31/2020, today is day 10. Patient seen and examined at bedside today. She was on CPAP overnight as well. She did drop in her saturations midnight when she was taken off CPAP for drinking water and was requesting to be intubated on multiple occasions. During when she was given some Ativan and continued the CPAP at a setting of 18 L and 70 of FiO2. She is still able to take only less than 300 mL, as taking off the CPAP drops her saturation. She looks very tired, reports having mild cough with clear sputum, denies having chest pain, abdominal pain [except the location of subcutaneous injections], fever, chills, nausea, vomiting, diarrhea. She did have a bowel movement yesterday. Objective: Physical exam: Gen.: Patient is alert and oriented on CPAP, patient feels very tired, but does not look like she is in acute distress. Cardiac: Regular rate and rhythm, S1-S2 heard, no murmurs appreciated. Respiratory: Some Inspiratory rhonchi are heard throughout the lung field and no crackles no change from yesterday. Abdomen: Vertical incisions are healing well no erythema or discharge surrounding them, patient reports having pain at the site of the subcutaneous injections. No tenderness on the rest of the abdomen. Extremities: No pedal edema noted, patient is having compression socks on. Assessment: Patient is a [age] year old female presented to the hospital with increasing abdominal pain and was diagnosed with small bowel incarcerated hernia and subsequently underwent surgery. She was diagnosed with Covid 19 one day prior to her presentation to the ED. Patient's respiratory status deteriorated 4 days ago requiring patient to be on CPAP therapy and was transferred to ICU 4 days ago. She was on CPAP most of the time trying to wean down to Vapotherm and she was not tolerating that well and was back on CPAP yesterday. Covid 19 infection: - Patient is on CPAP on 18 L/70% FiO2, saturating at 97%. - Patient is anxious, in shallow breaths and her heart rate is up in 40s and someone in the room and trying to talk to her. On resting her heart rate is in the upper 20s and low 30s. Patient overnight was requesting for intubation but given her comorbidities if she is put on intubation it is unlikely that she would be off of it and will have good outcomes. - Overnight she did drop in saturation when the CPAP was taken off and was requesting for intubation but her ABG and chest x-ray were unchanged from prior and she was given a dose of Ativan which calm her down. - Patient needs to work on her breathing taking deep breaths and rather than shallow breathing and hoping she will improve. - Today is day 5 of remedisvir, day 4 of steroid [D1 of 4 mg steroid], she did get 2 doses of monoclonal antibodies 1 on 09/07, 09/09. - Will increase her dose of Lovenox to 60 mg twice a day given that her d-dimer is a still elevated more than 4000. - Will see if she can tolerate laying on her side and pronating, we think that would help her. - We are not considering BiPAP as her CO2 levels are normal on ABG, and think BiPAP from her rather than helping her. Incarcerated incisional hernia repair: - Patient did have an robotic surgery for the above on 09/02/2020. - Patient is on liquid diet, but not able to tolerate taking off of CPAP and is only taking sips. JAQUELINE: -Patient on CPAP at home and will continue CPAP overnight as well. Atrial fibrillation: -Patient currently in sinus rhythm and on metoprolol 2.5 mg every 6 hours, Lovenox 60 twice a day. DVT prophylaxis: Lovenox 60 twice a day. Disposition: Pending clinical improvement. VS,Fishbone, I+O VS, Fishbone, I+O Laboratory Tests 09/10/20 05:06 Vital Signs Date Time Temp Pulse Resp B/P (MAP) Pulse Ox O2 Delivery O2 Flow Rate FiO2 09/10/20 09:33 37 09/10/20 08:58 NIPPV (BIPAP/CPAP) 09/10/20 08:42 70 09/10/20 08:39 67 124/73 09/10/20 06:00 94 09/10/20 04:00 98.6 09/09/20 00:00 I&O- Last 24 Hours up to 6 AM 09/10/20 06:00 Intake Total 730 ml Output Total 925 ml Balance -195 ml GME ATTESTATION GME ATTESTATION My faculty preceptor for this patient encounter was physically present during the encounter and was fully available. All aspects of the patient interview, examination, medical decision making process, and medical care plan development were reviewed and approved by the faculty preceptor. The faculty preceptor is aware and concurs with the plan as stated in the body of this note and will attest to such by his/her cosignature. ATTENDING NOTE I, Cecil Carr MD, have independently examined this patient and performed my own physical exam, as well as reviewed the documentation and edited where necessary. I have discussed in detail with the resident / student the findings and plan of treatment as documented by the resident / student and edited their note. I agree with their findings and treatment plan and have edited their documentation. Teri Martinez MD Sep 10, 2020 09:56 CECIL CARR MD Sep 10, 2020 15:16
[2020-09-10] MEDS ORDERED: LIDOCAINE 1% MDV 20ML VIAL As Ordered ONE (13:38)
[2020-09-10] MEDS: SODIUM CHLORIDE 0.9% INJ 10 ML SYR IV SCH ×2 (17:37→20:06)
--- NOTE | 2020-09-10 18:54 | REP ---
INDICATION: poor vascular access. COMPARISON: None. TECHNIQUE: The procedure was performed under the direct supervision of Dr. Taylor. The risks and benefits of the procedure were explained to the patient and informed consent was obtained. The procedure was performed in the ICU at the bedside. The right basilic vein was localized using ultrasound guidance. The skin was prepped and draped in a sterile fashion. 2% lidocaine was used as a local anesthetic. Using ultrasound guidance the basilic vein was cannulated and a 0.018 guidewire was inserted. The needle was removed and a 5.5 Tajik dilator and peel-away sheath was inserted over the guidewire. A 5.5 Tajik dual lumen catheter was cut to a length of 41 cm. The dilator was removed and the catheter was inserted over the guidewire. Three portable chest x-ray was performed and on each image the catheter is doubled back on itself. The catheter was readjusted and the guidewire was advanced beyond the tip of the catheter in order to straighten. Final image demonstrates the tip of the catheter to be in the SVC. The peel-away sheath was removed and the catheter was flushed with heparinized saline as per hospital protocol. The catheter was affixed to the skin and a sterile dressing was applied. The patient tolerated the procedure well and there were no immediate complications. FINDINGS: None IMPRESSION: PICC line insertion right basilic vein with the tip ending in the SVC. <Electronically signed by Hiren Sabillon > 09/10/20 [id number] <Electronically signed by Ruy Taylor > 09/10/20 0929
[2020-09-10] MEDS: REMDESIVIR 100 MG in NS 250 ML IV SCH (20:05)
[2020-09-10] MEDS: MONTELUKAST 10 MG TAB PO SCH (20:06)
[2020-09-10] MEDS ORDERED: ENOXAPARIN 60MG/0.6ML SYRINGE (J1650 PER 10MG) SC SCH (21:00)
[2020-09-11] VITALS (20 sets, daily range): BP systolic 118–154; BP diastolic 57–88; O2SAT 93–98
[2020-09-11] MEDS: SODIUM CHLORIDE 0.9% INJ 10 ML SYR IV SCH ×2 (04:12→17:36)
[2020-09-11 04:30] LABS: HEMATOCRIT 39.8 % (36.0-47.0); HEMOGLOBIN 13.2 g/dl (12.0-15.5); MEAN CORPUSCULAR HEMOGLOBIN 30.5 pg (27.0-33.0); MEAN CORPUSCULAR HGB CONC 33.2 g/dl (32.0-36.5); MEAN CORPUSCULAR VOLUME 91.9 fl (80.0-96.0); PLATELET COUNT, AUTOMATED 389 10^3/uL (150-450); RED BLOOD COUNT 4.33 10^6/uL (4.00-5.40); WHITE BLOOD COUNT 8.3 10^3/uL (4.0-10.0)
[2020-09-11 04:55] LABS: BLOOD UREA NITROGEN 16 MG/DL (7-18); CALCIUM LEVEL 7.6 MG/DL (8.5-10.1); CARBON DIOXIDE LEVEL 32 MEQ/L (21-32); CHLORIDE LEVEL 106 MEQ/L (98-107); CREATININE FOR GFR 0.32 MG/DL (0.55-1.30); GLOMERULAR FILTRATION RATE > 60.0 (>51); GLUCOSE, FASTING 100 MG/DL (70-100); POTASSIUM SERUM 3.7 MEQ/L (3.5-5.1); SODIUM LEVEL 142 MEQ/L (136-145)
[2020-09-11] MEDS: PANTOPRAZOLE 40MG VIAL (C9113 PER 1) IV SCH ×2 (08:37→20:35)
[2020-09-11] MEDS: METOPROLOL TART 12.5 MG PER 1/2 TAB PO SCH ×2 (08:37→20:37)
[2020-09-11] MEDS: dexameTHASONE 4 MG/ML 1ML VIAL (J1100 PER 1MG) IV SCH (08:38)
[2020-09-11] MEDS: ENOXAPARIN 60MG/0.6ML SYRINGE (J1650 PER 10MG) SC SCH ×2 (08:39→20:39)
--- NOTE | 2020-09-11 09:26 | IPNPDOC ---
Text Note Date of Service The patient was seen on 09/11/20. NOTE Subjective: Patient is a 50-year-old female who was initially admitted in the hospital on 09/01/2020 for an incisional incarcerated hernia. Patient was initially positive for Covid 19 on 08/31/2020. Patient feels better today. She says that her breathing is improved. Patient says her abdomen is sore and she has been trying to drink her insurer in order to gain calories. Patient is still on clear liquid diet is unable to tolerate being off CPAP for enough time to eat a full meal. Patient continues to have flatulence and bowel movements. Patient denies having any fevers or coughing. Patient denies any chest pain. Physical exam: Vitals: See below General: Alert and oriented female who was laying in bed with CPAP on when I walked in the room. Patient did not appear to be in any acute distress. HEENT: Normocephalic, atraumatic, moist mucous membranes. Neck: No lymphadenopathy or thyromegaly Cardiac: Regular rate and rhythm, no murmurs, normal S1, normal S2 Pulm: Clear to auscultation bilaterally. No wheezes, rhonchi, rales Abd: Nondistended, there is ecchymosis in the lower parts the abdomen more so on the right, normal bowel sounds, mild tenderness to palpation Ext: No edema bilateral lower extremities Labs: See below Imaging: No new imaging has been performed since the evening of 09/09/2020. Assessment/plan: Patient is a 50-year-old female who initially presented to the hospital on 09/01/2020 with a chief complaint of abdominal pain and was diagnosed with an incarcerated incisional hernia which required surgical intervention. Patient was diagnosed with Covid 19 on 08/31/2020 and patient's respiratory status decompensated on 09/06/2020 requiring the patient to be transferred to the intensive care unit and placed on CPAP therapy. 1. Covid 19 infection. Patient continues on CPAP of 18 cm H2O and 70% FiO2. When I was in the room talking with the patient she was satting anywhere between 97 and 99%. Plan is to try to wean the FiO2 down as well as the pressure in order to see if the patient tolerated this. If the patient is able to tolerate this, plan is to transition the patient Vapotherm. Patient is on day 5 of Mayadron. Patient received 3 doses of 6 mg IV and is day to 4 mg IV. Patient also received 2 doses of toculizumab. Patient received 5 days of Remdesivir. We'll continue to monitor the patient. Advised patient to try to take slower deeper breaths when he becomes anxious. 2. Incarcerated incisional hernia. Patient was taken to the operating room on 09/02/2020. Patient is on a clear liquid diet and diet is advanced per Dr. Boston and we appreciate Dr. Boston's help in treating this patient. 3. Obstructive sleep apnea. Patient uses CPAP at home and once the patient is off continuous CPAP we will transition her to CPAP overnight. 4. History of atrial fibrillation. Patient had a run of atrial fibrillation on 09/06/2020. Patient is on metoprolol 12.5 mg twice a day. We will now transition the patient to full dose Lovenox at 1 mg/kg twice a day. Patient will receive 125 mg of Lovenox starting today. DVT Prophylaxis: - Full dose anticoagulation with Lovenox Disposition: - Pending clinical improvement VS,Luis, I+O VS, Luis, I+O Laboratory Tests 09/11/20 04:15 Vital Signs Date Time Temp Pulse Resp B/P (MAP) Pulse Ox O2 Delivery O2 Flow Rate FiO2 09/11/20 08:37 82 122/65 09/11/20 06:00 29 97 NIPPV (BIPAP/CPAP) 70 09/11/20 04:00 98.2 09/09/20 00:00 I&O- Last 24 Hours up to 6 AM 09/11/20 06:00 Intake Total 850 ml Output Total 1300 ml Balance -450 ml GME ATTESTATION GME ATTESTATION My faculty preceptor for this patient encounter was physically present during the encounter and was fully available. All aspects of the patient interview, examination, medical decision making process, and medical care plan development were reviewed and approved by the faculty preceptor. The faculty preceptor is aware and concurs with the plan as stated in the body of this note and will attest to such by his/her cosignature. ATTENDING NOTE I, Bobbi Chauhan, have independently examined this patient and performed my own physical exam, as well as reviewed the documentation and edited where necessary. I have discussed in detail with the resident / student the findings and plan of treatment as documented by the resident / student and edited their note. I agree with their findings and treatment plan and have edited their documentation. I will continue to follow the patient during this hospital stay. YU BARRAGAN DO Sep 11, 2020 09:26 BOBBI CHAUHAN MD Sep 11, 2020 11:00
[2020-09-11 09:38] LABS: PROTHROMBIN TIME 14.4 SECONDS (12.5-14.3)
[2020-09-11 09:39] LABS: FIBRINOGEN 343 MG/DL (221-452); PARTIAL THROMBOPLASTIN TIME 25.8 SECONDS (24.2-38.5)
[2020-09-11 09:47] LABS: ALBUMIN 2.5 GM/DL (3.2-5.2); ALT/SGPT 35 U/L (12-78); BILIRUBIN,DIRECT 0.3 MG/DL (0.0-0.2); BILIRUBIN,TOTAL 0.6 MG/DL (0.2-1.0); FERRITIN 1410 NG/ML (8-252); LDH LACTATE DEHYDROGENASE 855 U/L (84-246); NT-PRO BNP 584 PG/ML (<125); TOTAL PROTEIN 5.7 GM/DL (6.4-8.2); TROPONIN I < 0.02 NG/ML (< 0.10)
[2020-09-11 09:56] LABS: D-DIMER QUANT > 4000 ng/ml (<500)
[2020-09-11] MEDS: MONTELUKAST 10 MG TAB PO SCH (20:37)
[2020-09-11] MEDS: MORPHINE 4 MG/ML 1ML VIAL/SYRINGE (J2270) IV PRN (21:25)
[2020-09-12] VITALS (8 sets, daily range): BP systolic 92–139; BP diastolic 53–73; O2SAT 90–93
[2020-09-12] MEDS: MORPHINE 4 MG/ML 1ML VIAL/SYRINGE (J2270) IV PRN ×4 (03:45→23:47)
[2020-09-12 05:33] LABS: INR 1.15
[2020-09-12 05:42] LABS: ALBUMIN 2.4 GM/DL (3.2-5.2); ALT/SGPT 32 U/L (12-78); BILIRUBIN,DIRECT 0.3 MG/DL (0.0-0.2); BILIRUBIN,TOTAL 0.7 MG/DL (0.2-1.0); CPK CREATINE PHOSPHOKINASE 96 U/L (26-192); FERRITIN 1614 NG/ML (8-252); LDH LACTATE DEHYDROGENASE 707 U/L (84-246); NT-PRO BNP 337 PG/ML (<125); TOTAL PROTEIN 5.5 GM/DL (6.4-8.2); TROPONIN I < 0.02 NG/ML (< 0.10)
[2020-09-12] MEDS: SODIUM CHLORIDE 0.9% INJ 10 ML SYR IV SCH ×2 (05:42→17:26)
[2020-09-12] MEDS: PANTOPRAZOLE 40MG VIAL (C9113 PER 1) IV SCH ×2 (08:47→20:04)
[2020-09-12] MEDS: dexameTHASONE 4 MG/ML 1ML VIAL (J1100 PER 1MG) IV SCH (08:47)
[2020-09-12] MEDS: ENOXAPARIN 60MG/0.6ML SYRINGE (J1650 PER 10MG) SC SCH ×2 (08:47→20:04)
[2020-09-12] MEDS: METOPROLOL TART 12.5 MG PER 1/2 TAB PO SCH ×2 (08:48→20:03)
[2020-09-12 12:17] LABS: BASO % 0.2 % (0.0-1.0); EOS % 0.3 % (0.0-3.0); HEMATOCRIT 40.3 % (36.0-47.0); HEMOGLOBIN 13.1 g/dl (12.0-15.5); LYMPH # 0.6 10^3/uL (1.5-5.0); LYMPH % 4.3 % (24.0-44.0); MEAN CORPUSCULAR HEMOGLOBIN 29.7 pg (27.0-33.0); MEAN CORPUSCULAR HGB CONC 32.5 g/dl (32.0-36.5); MEAN CORPUSCULAR VOLUME 91.4 fl (80.0-96.0); MONO # 0.2 10^3/uL (0.0-0.8); MONO % 1.3 % (2.0-8.0); NEUTROPHILS # 12.8 10^3/uL (1.5-8.5); NEUTROPHILS % 92.5 % (36.0-66.0); PLATELET COUNT, AUTOMATED 406 10^3/uL (150-450); RED BLOOD COUNT 4.41 10^6/uL (4.00-5.40); WHITE BLOOD COUNT 13.8 10^3/uL (4.0-10.0)
--- NOTE | 2020-09-12 12:19 | IPNPDOC ---
Text Note Date of Service The patient was seen on 09/12/20. NOTE Subjective: Patient is a 50-year-old female with a PMHx of DM2, Asthma, Obesity who was initially admitted in the hospital on 09/01/2020 for an incisional incarcerated hernia. Patient was initially positive for COVID19 on 08/31/2020. Patient was made to the hospital service for further evaluation, treatment. General surgery was called on consultation. Patient has received surgical correction of her incarcerated hernia on 09/[address] Boston. Patient was seen and examined at the bedside currently reports that she is experiencing lower abdominal discomfort. Denies any nausea, vomiting. Reports that she has had a bowel movement this morning. Denies any urinary discomfort. Denies any chest pain or palpitations. Reports that her breathing is doing relatively. Has not experience any significant cough. Physical exam: Vitals (See below) General: Lying in bed, no acute distress, comfortable, AAOx3 HEENT: NC, AT CVS: +S1S2 Lungs: Fair air entry b/l, -w/r/r Abdomen: Soft, ND, NT, ecchymosis of lower abdomen noted Extremities: No evidence of edema, - Calf tenderness Labs: See below Imaging: No new imaging has been performed since the evening of 09/09/2020. Assessment/plan: Acute hypoxic respiratory failure - likely 2/2 COVID19 pneumonia - Patient was that her breathing is doing relatively better - Currently is on Vapotherm at an FiO2 of 80% - Labs pending - CTA 09/06: Suboptimal examination secondary to bolus timing for pulmonary embolism study. However no filling defect in the major pulmonary arteries. Bilateral diffuse ground-glass opacities. Findings consistent with patient's history of COVID-19 pneumonia. - CXR 09/09: Similar but less focal and more diffuse lung opacities. - c/w Dexamethasone (Day #6) - s/p Remdesivir (Completed 5 days) and Tocilizumab x 2 doses - c/w Incentive spirometry / Acapella - Will add Mucinex Incarcerated incisional hernia - Patient denies any nausea, vomiting. Has been having regular bowel movements - CT abdomen / pelvis 09/12: Inferior anterior abdominal wall hernia contains inflamed fat, with moderately dilated small bowel leading into the hernia sac and a transition point identified consistent with small bowel obstruction. Incarceration and strangulation cannot be excluded. - s/p Surgical correction on 09/[address] Boston Obstructive sleep apnea - c/w CPAP as needed at night History of atrial fibrillation - c/w rate control with metoprolol - c/w full anticoagulation with Lovenox GI Prophylaxis - c/w Protonix DVT Prophylaxis: - c/w full dose anticoagulation with Lovenox Disposition: - Pending clinical improvement VS,Fishbone, I+O VS, Fishbone, I+O Vital Signs Date Time Temp Pulse Resp B/P (MAP) Pulse Ox O2 Delivery O2 Flow Rate FiO2 09/12/20 08:48 88 92/54 09/12/20 08:16 93 HVNI-Vapotherm 40.0 100 09/12/20 08:00 99.2 22 I&O- Last 24 Hours up to 6 AM 09/12/20 05:59 Intake Total 540 ml Output Total 1650 ml Balance -1110 ml CHRISTIANO CHAUHAN MD Sep 12, 2020 12:19
[2020-09-12 12:40] LABS: ALBUMIN 2.4 GM/DL (3.2-5.2); ALT/SGPT 32 U/L (12-78); BILIRUBIN,TOTAL 0.7 MG/DL (0.2-1.0); BLOOD UREA NITROGEN 13 MG/DL (7-18); CALCIUM LEVEL 8.1 MG/DL (8.5-10.1); CARBON DIOXIDE LEVEL 30 MEQ/L (21-32); CHLORIDE LEVEL 105 MEQ/L (98-107); CREATININE FOR GFR 0.41 MG/DL (0.55-1.30); GLOMERULAR FILTRATION RATE > 60.0 (>51); GLUCOSE, FASTING 135 MG/DL (70-100); MAGNESIUM LEVEL 1.8 MG/DL (1.8-2.4); POTASSIUM SERUM 3.8 MEQ/L (3.5-5.1); SODIUM LEVEL 139 MEQ/L (136-145); TOTAL PROTEIN 5.8 GM/DL (6.4-8.2)
[2020-09-12] MEDS ORDERED: NS 500 ML IV ONE (12:55)
[2020-09-12 13:09] LABS: C REACTIVE PROTEIN QUANTITATIV 0.82 MG/DL (0.00-0.30)
[2020-09-12] MEDS: guaiFENesin ER 600 MG TAB PO SCH ×2 (13:34→20:03)
[2020-09-12] MEDS ORDERED: MAG SULF 1GM/100ML (MAG RUN) 1 GM in IV 1 EA IV ONE (14:00)
--- NOTE | 2020-09-12 15:04 | IPN ---
PROGRESS NOTE DATE: 09/12/2020 HISTORY: Patient is a 50-year-old woman who is now 10 days postoperative from laparoscopic repair of her strangulated incisional hernia with resection of a portion of small bowel. She had been diagnosed with COVID-19 prior to her admission. She did well for the first couple of days postoperatively, but then her respiratory status deteriorated significantly. She has been in the intensive care unit for the last few days. Yesterday, the hospitalist resident indicated that she was thinking she was showing some early signs of improvement. She does seem to have improved slightly with a reduced respiratory rate and slightly reduced need for oxygen at this time. She does remain on significant oxygen concentrations. Vital signs show that she has been afebrile over the past 24 hours. Her pulse has been remarkably steady, between 65 and 92. Her blood pressure has been on the low side, but with an acceptable mean pressure. Intake and output show that yesterday she had 480 recorded in with 1700 of urine recorded out. It has been difficult for her to take much orally because of her respiratory issues. PHYSICAL EXAMINATION: The patient is alert and oriented. She is able to converse. While I was in the room, she was assisted out of bed to the commode and then back into bed. She does have drops in her oxygen saturations with effort. SKIN: Warm and dry. HEART EXAM: Regular rhythm. ABDOMEN: Remains quite obese. Her incisions are all healing nicely. She has some bruising in the right lower quadrant, which is fading, and there is a suggestion of a small hematoma or seroma in the area of her hernia sac along the midline and along the right lower quadrant, but this is small. The abdomen is soft and without significant tenderness on palpation. LABORATORY STUDIES: Show a white count of 14 today, which does represent an increase. She has got a hemoglobin of 13, a hematocrit of 40 and a platelet count of 406,000. Her chemistry profile shows normal electrolytes with a BUN of 13, creatinine 0.4 and a glucose of 135. Her total protein is 5.8 with an albumin of 2.4. She has no new imaging studies to report. IMPRESSION: Patient is doing well from her abdominal surgery. Her gastrointestinal (GI) tract appears to be functioning acceptably and her incisions are healing well. Her COVID may be starting to improve. PLAN: I will continue to follow her periodically during her recovery. [facility]
[2020-09-12] MEDS: MONTELUKAST 10 MG TAB PO SCH (20:03)
[2020-09-13] VITALS (8 sets, daily range): BP systolic 88–129; BP diastolic 46–59
[2020-09-13] MEDS: MORPHINE 4 MG/ML 1ML VIAL/SYRINGE (J2270) IV PRN ×3 (03:49→20:23)
[2020-09-13 06:22] LABS: HEMATOCRIT 38.3 % (36.0-47.0); HEMOGLOBIN 12.5 g/dl (12.0-15.5); MEAN CORPUSCULAR HGB CONC 32.6 g/dl (32.0-36.5); MEAN CORPUSCULAR VOLUME 92.1 fl (80.0-96.0); PLATELET COUNT, AUTOMATED 400 10^3/uL (150-450); RED BLOOD COUNT 4.16 10^6/uL (4.00-5.40); WHITE BLOOD COUNT 11.9 10^3/uL (4.0-10.0)
[2020-09-13 06:42] LABS: ALBUMIN 2.4 GM/DL (3.2-5.2); ALT/SGPT 31 U/L (12-78); BILIRUBIN,TOTAL 0.7 MG/DL (0.2-1.0); BLOOD UREA NITROGEN 13 MG/DL (7-18); C REACTIVE PROTEIN QUANTITATIV 0.81 MG/DL (0.00-0.30); CALCIUM LEVEL 7.8 MG/DL (8.5-10.1); CARBON DIOXIDE LEVEL 30 MEQ/L (21-32); CHLORIDE LEVEL 106 MEQ/L (98-107); CREATININE FOR GFR 0.36 MG/DL (0.55-1.30); FERRITIN 1940 NG/ML (8-252); GLOMERULAR FILTRATION RATE > 60.0 (>51); GLUCOSE, FASTING 100 MG/DL (70-100); LDH LACTATE DEHYDROGENASE 994 U/L (84-246); MAGNESIUM LEVEL 1.9 MG/DL (1.8-2.4); POTASSIUM SERUM 3.3 MEQ/L (3.5-5.1); SODIUM LEVEL 139 MEQ/L (136-145); TOTAL PROTEIN 5.6 GM/DL (6.4-8.2)
[2020-09-13] MEDS ORDERED: POTASSIUM CHLORIDE 10 MEQ SR TABLET PO ONE (07:15)
[2020-09-13] MEDS: SODIUM CHLORIDE 0.9% INJ 10 ML SYR IV SCH ×2 (07:49→18:50)
[2020-09-13] MEDS: METOPROLOL TART 12.5 MG PER 1/2 TAB PO SCH ×2 (08:08→20:59)
[2020-09-13 08:22] LABS: EOSINOPHILS 1 % (0-3); LYMPHOCYTES 3 % (16-44); NEUTROPHILS 89 % (28-66); PLATELET ESTIMATE NORMAL (NORMAL)
[2020-09-13] MEDS: PANTOPRAZOLE 40MG VIAL (C9113 PER 1) IV SCH ×2 (09:35→20:22)
[2020-09-13] MEDS: guaiFENesin ER 600 MG TAB PO SCH ×2 (09:36→20:23)
[2020-09-13] MEDS: ENOXAPARIN 60MG/0.6ML SYRINGE (J1650 PER 10MG) SC SCH ×2 (09:36→20:58)
[2020-09-13] MEDS: dexameTHASONE 4 MG/ML 1ML VIAL (J1100 PER 1MG) IV SCH (09:36)
--- NOTE | 2020-09-13 13:26 | IPNPDOC ---
Text Note Date of Service The patient was seen on 09/13/20. NOTE Subjective: Tested positive for covid on 09/01/2019, today would be day 14. Patient seen and examined bedside. She is feeling better today, she is on Vapotherm 40/100 saturating at 93-99%. Even though patient was cleared by surgery for having oral intake patient did not have much of oral intake up until yesterday night. Today she reports she is feeling hungry. Patient reports to be having mild cough and bringing up sputum with red tinge in it. Denies having any shortness of breath, chest pain, fever, chills, diarrhea. Reports to be having mild lower abdominal at this site which she is getting subcutaneous injections. Objective: Physical exam: Gen.: Patient is alert oriented 3, sitting in chair, no acute distress. Cardiac: Regular rate and rhythm, normal S1 and S2, no murmurs appreciated. Respiratory: Clear to auscultation in bilateral upper lobes, mildly expiratory wheezes heard in the lower lobes. Abdomen: Ecchymosis noted in the lower abdomen at the site of subcutaneous Lovenox injections. Denies having any pain in the rest of the abdomen, normal bowel sounds appreciated. No erythema or discharge noted from surgical incision sites. Extremities: No pedal edema appreciated. Assessment: Patient is a 50-year-old female who initially presented to the hospital on 09/01/2020 with abdominal pain and was diagnosed with incarcerated incisional hernia who eventually got surgery for the same. Patient was diagnosed with covid 19 08/31/2020, she initially did not have any symptoms hold later after the surgery decompensated on 09/06/2020 and was transferred to ICU and was on CPAP until 09/11/2020. Covid 19 infection: - Patient is on Vapotherm 40/100 saturating at 93-99%. - Patient is on dexamethasone day 7. - S/p remedisvir completed 5 day course and tocilizumab x 2 doses. - Will continue Incentive spirometry/ Acapella. - On Lovenox 125 mg twice a day. Transient atrial fibrillation: - Patient had an episode of atrial fibrillation on Sunday, was started on full dose anticoagulation and metoprolol 12.5 mg. - Recent has a CHADS VAS score of 1 she has a low risk for stroke. - Her likely episode of transient A. fib is due to Covid/tachycardia. Incarcerated incisional hernia repair: - Patient did have an robotic surgery for the above on 09/02/2020. -Patient is having oral food intake. - Her incision sites are healing well no discharge or erythema noted. JAQUELINE: - Patient is on CPAP at home and will continue CPAP at night as needed. DVT prophylaxis: Lovenox 60 mg twice a day GI prophylaxis: Protonix 40 MG twice a day Disposition: If patient is stable tonight and able to tolerate lowering of FiO2 on Vapotherm will consider moving her out of ICU to [facility] maybe tomorrow. VS,Fishbone, I+O VS, Fishbone, I+O Laboratory Tests 09/13/20 06:00 Vital Signs Date Time Temp Pulse Resp B/P (MAP) Pulse Ox O2 Delivery O2 Flow Rate FiO2 09/13/20 12:00 70 09/13/20 12:00 98.6 85 25 129/59 (82) 88 NIPPV (BIPAP/CPAP) 09/13/20 09:48 40.0 I&O- Last 24 Hours up to 6 AM 09/13/20 06:00 Intake Total 1380 ml Output Total 1900 ml Balance -520 ml GME ATTESTATION GME ATTESTATION My faculty preceptor for this patient encounter was physically present during the encounter and was fully available. All aspects of the patient interview, examination, medical decision making process, and medical care plan development were reviewed and approved by the faculty preceptor. The faculty preceptor is aware and concurs with the plan as stated in the body of this note and will attest to such by his/her cosignature. ATTENDING NOTE I, Cecil Carr MD, have independently examined this patient and performed my own physical exam, as well as reviewed the documentation and edited where necessary. I have discussed in detail with the resident / student the findings and plan of treatment as documented by the resident / student and edited their note. I agree with their findings and treatment plan and have edited their documentation. Teri Martinez MD Sep 13, 2020 13:26 CECIL CARR MD Sep 17, 2020 15:45
[2020-09-13] MEDS: ACETAMINOPHEN TAB 650MG DOSE (2X325MG) PO PRN (20:25)
[2020-09-13] MEDS: MONTELUKAST 10 MG TAB PO SCH (20:26)
[2020-09-13] MEDS ORDERED: LORazepam 2 MG/ML VIAL IV STA (21:22)
[2020-09-13] MEDS ORDERED: LORazepam 2 MG/ML VIAL As Ordered ONE (21:23)
[2020-09-14] VITALS (13 sets, daily range): BP systolic 89–126; BP diastolic 51–71
[2020-09-14] MEDS: MORPHINE 4 MG/ML 1ML VIAL/SYRINGE (J2270) IV PRN ×2 (00:50→09:21)
[2020-09-14 04:49] LABS: BASO % 0.3 % (0.0-1.0); EOS # 0.2 10^3/uL (0.0-0.5); EOS % 1.7 % (0.0-3.0); HEMATOCRIT 38.5 % (36.0-47.0); HEMOGLOBIN 12.5 g/dl (12.0-15.5); LYMPH # 0.7 10^3/uL (1.5-5.0); LYMPH % 5.9 % (24.0-44.0); MEAN CORPUSCULAR HGB CONC 32.5 g/dl (32.0-36.5); MEAN CORPUSCULAR VOLUME 92.5 fl (80.0-96.0); MONO # 0.2 10^3/uL (0.0-0.8); MONO % 1.6 % (2.0-8.0); NEUTROPHILS # 10.6 10^3/uL (1.5-8.5); NEUTROPHILS % 89.7 % (36.0-66.0); PLATELET COUNT, AUTOMATED 366 10^3/uL (150-450); RED BLOOD COUNT 4.16 10^6/uL (4.00-5.40); WHITE BLOOD COUNT 11.8 10^3/uL (4.0-10.0)
[2020-09-14 05:14] LABS: ALBUMIN 2.6 GM/DL (3.2-5.2); ALT/SGPT 30 U/L (12-78); BILIRUBIN,TOTAL 0.6 MG/DL (0.2-1.0); BLOOD UREA NITROGEN 14 MG/DL (7-18); CALCIUM LEVEL 8.1 MG/DL (8.5-10.1); CARBON DIOXIDE LEVEL 30 MEQ/L (21-32); CHLORIDE LEVEL 106 MEQ/L (98-107); CREATININE FOR GFR 0.43 MG/DL (0.55-1.30); GLOMERULAR FILTRATION RATE > 60.0 (>51); GLUCOSE, FASTING 89 MG/DL (70-100); MAGNESIUM LEVEL 1.8 MG/DL (1.8-2.4); POTASSIUM SERUM 3.8 MEQ/L (3.5-5.1); SODIUM LEVEL 141 MEQ/L (136-145); TOTAL PROTEIN 5.7 GM/DL (6.4-8.2)
[2020-09-14] MEDS: SODIUM CHLORIDE 0.9% INJ 10 ML SYR IV SCH ×3 (05:17→18:20)
[2020-09-14 05:24] LABS: C REACTIVE PROTEIN QUANTITATIV 1.77 MG/DL (0.00-0.30)
[2020-09-14] MEDS: ENOXAPARIN 60MG/0.6ML SYRINGE (J1650 PER 10MG) SC SCH (08:10)
[2020-09-14] MEDS: dexameTHASONE 4 MG/ML 1ML VIAL (J1100 PER 1MG) IV SCH (08:10)
[2020-09-14] MEDS: guaiFENesin ER 600 MG TAB PO SCH ×2 (08:10→20:24)
[2020-09-14] MEDS: PANTOPRAZOLE 40MG VIAL (C9113 PER 1) IV SCH ×2 (08:10→20:24)
[2020-09-14] MEDS: METOPROLOL TART 12.5 MG PER 1/2 TAB PO SCH ×2 (08:10→20:34)
--- NOTE | 2020-09-14 10:18 | IPNPDOC ---
Text Note Date of Service The patient was seen on 09/14/20. NOTE Subjective: Tested positive for covid on 08/31/2020, today would be day 15. Patient examined and seen at bedside. She was on CPAP on 16 L/90% FiO2 over the night but was agitated in the bungy jump master and was given Ativan. Today morning when I was in the she is feeling very sleepy and is still on CPAP. She denies having any shortness of breath, chest pain, fever, chills, nausea. Reports having mild abdominal pain at the site where she is getting subcutaneous injections. Objective: Physical exam: Gen.: Patient is alert oriented 3, laying in bed was sleepy, no acute distress. Cardiac: Regular rate and rhythm, S1-S2 normal, no murmurs heard. Respiratory: Clear to auscultation bilateral. No chest pain, no shortness of breath, no wheezes. Abdomen: Ecchymosis noted in the lower abdomen at this location of the her subcutaneous injections. Normal bowel sounds. Extremities: No pedal edema he did Assessment: Patient is a 50-year-old female who initially presented to the hospital on 09/01/2020 with abdominal pain and was diagnosed with incarcerated incisional hernia who eventually got surgery for the same. Patient was diagnosed with covid 19 08/31/2020, she initially did not have any symptoms hold later after the surgery decompensated on 09/06/2020 and was transferred to ICU. Covid 19 infection: -Patient today is on CPAP. He was put on CPAP at nighttime because of her JAQUELINE the left morning she did have some agitation and was given Ativan. She was feeling sleepy so she is still on CPAP as of now today when I saw her. When she wakes up will try to put her back on Vapotherm and see how she does. Will try to wean down her FiO2 gradually if she can tolerate. - Patient is on day 8 of dexamethasone 4 mg. - Will start her on remedisvir again. She already got her 5 day course of remedisvir as there is no substantial clinical improvement will give her another 5 days of remedisvir. - S/P tocilizumab into 2 doses. - Patient was encouraged to continue use incentive spirometry/acapella - Will continue Lovenox 125 mg 2 times a day.(As patient had an episode of transient atrial fibrillation her Lovenox dose was increased to full anticoagulation dose) Transient atrial fibrillation: - Patient had an episode of atrial fibrillation on Sunday, was started on full dose anticoagulation and metoprolol 12.5 mg. - Based on clinical improvement in future will try to decrease her dosage. - Recent has a CHADS VAS score of 1 she has a low risk for stroke. - Her likely episode of transient A. fib is due to Covid/tachycardia. - Patient is not in A. fib yesterday and today. Incarcerated incisional hernia repair: - Patient did have an robotic surgery for the above on 09/02/2020. -Patient is having oral food intake. - Her incision sites are healing well no discharge or erythema noted. JAQUELINE: - Patient is on CPAP at home and will continue CPAP at night as needed. DVT prophylaxis: Lovenox 125 mg twice a day GI prophylaxis: Protonix 40 MG twice a day Disposition: Pending clinical improvement. VS,Fishbone, I+O VS, Fishbone, I+O Laboratory Tests 09/14/20 04:23 Vital Signs Date Time Temp Pulse Resp B/P (MAP) Pulse Ox O2 Delivery O2 Flow Rate FiO2 09/14/20 09:21 103 36 96 NIPPV (BIPAP/CPAP) 90 09/14/20 08:10 103/59 09/14/20 04:00 99.6 09/13/20 20:00 40.0 I&O- Last 24 Hours up to 6 AM 09/14/20 06:00 Intake Total 2130 ml Output Total 1120 ml Balance 1010 ml GME ATTESTATION GME ATTESTATION My faculty preceptor for this patient encounter was physically present during the encounter and was fully available. All aspects of the patient interview, examination, medical decision making process, and medical care plan development were reviewed and approved by the faculty preceptor. The faculty preceptor is aware and concurs with the plan as stated in the body of this note and will attest to such by his/her cosignature. ATTENDING NOTE I, Cecil Carr MD, have independently examined this patient and performed my own physical exam, as well as reviewed the documentation and edited where ne cessary. I have discussed in detail with the resident / student the findings and plan of treatment as documented by the resident / student and edited their note. I agree with their findings and treatment plan and have edited their documentation. Teri Martinez MD Sep 14, 2020 10:18 CECIL CARR MD Sep 17, 2020 15:48
[2020-09-14] MEDS: ALPRAZolam 0.25 MG TAB PO PRN ×2 (12:25→20:24)
[2020-09-14] MEDS: IBUPROFEN 400MG TAB PO PRN ×2 (12:26→20:23)
[2020-09-14] MEDS: REMDESIVIR 100 MG in NS 250 ML IV SCH (12:26)
[2020-09-14] MEDS: NORCO, ANEXSIA 5/325MG TABLET (HYDROcodone/ACETAMINOPHEN) PO PRN (20:24)
[2020-09-14] MEDS: MONTELUKAST 10 MG TAB PO SCH (20:24)
[2020-09-14] MEDS: ENOXAPARIN 150MG/ML SYRINGE (J1650 PER 10MG) SC SCH (20:25)
[2020-09-15] VITALS (13 sets, daily range): BP systolic 106–134; BP diastolic 52–70
[2020-09-15] MEDS ORDERED: ALPRAZolam 0.5 MG TAB PO ONE (01:20)
[2020-09-15] MEDS ORDERED: RAMELTEON 8 MG TAB (ROZEREM) PO PRN (01:20)
[2020-09-15] MEDS: NORCO, ANEXSIA 5/325MG TABLET (HYDROcodone/ACETAMINOPHEN) PO PRN ×3 (03:03→15:30)
[2020-09-15 05:49] LABS: BASO % 0.2 % (0.0-1.0); EOS # 0.2 10^3/uL (0.0-0.5); HEMOGLOBIN 12.3 g/dl (12.0-15.5); LYMPH # 0.6 10^3/uL (1.5-5.0); LYMPH % 6.2 % (24.0-44.0); MEAN CORPUSCULAR HEMOGLOBIN 29.8 pg (27.0-33.0); MEAN CORPUSCULAR HGB CONC 32.4 g/dl (32.0-36.5); MONO # 0.1 10^3/uL (0.0-0.8); MONO % 1.2 % (2.0-8.0); NEUTROPHILS # 8.1 10^3/uL (1.5-8.5); NEUTROPHILS % 89.7 % (36.0-66.0); PLATELET COUNT, AUTOMATED 317 10^3/uL (150-450); RED BLOOD COUNT 4.13 10^6/uL (4.00-5.40); WHITE BLOOD COUNT 9.1 10^3/uL (4.0-10.0)
[2020-09-15 05:59] LABS: FIBRINOGEN 294 MG/DL (221-452)
[2020-09-15] MEDS: SODIUM CHLORIDE 0.9% INJ 10 ML SYR IV SCH ×3 (06:00→17:53)
[2020-09-15 06:14] LABS: ALBUMIN 2.6 GM/DL (3.2-5.2); ALT/SGPT 28 U/L (12-78); BILIRUBIN,DIRECT 0.2 MG/DL (0.0-0.2); BILIRUBIN,TOTAL 0.5 MG/DL (0.2-1.0); BLOOD UREA NITROGEN 16 MG/DL (7-18); CALCIUM LEVEL 9.2 MG/DL (8.5-10.1); CARBON DIOXIDE LEVEL 30 MEQ/L (21-32); CHLORIDE LEVEL 107 MEQ/L (98-107); CREATININE FOR GFR 0.39 MG/DL (0.55-1.30); GLOMERULAR FILTRATION RATE > 60.0 (>51); GLUCOSE, FASTING 97 MG/DL (70-100); MAGNESIUM LEVEL 1.9 MG/DL (1.8-2.4); POTASSIUM SERUM 3.4 MEQ/L (3.5-5.1); SODIUM LEVEL 140 MEQ/L (136-145)
[2020-09-15 06:27] LABS: C REACTIVE PROTEIN QUANTITATIV 2.77 MG/DL (0.00-0.30)
[2020-09-15] MEDS ORDERED: POTASSIUM CHLORIDE 10 MEQ SR TABLET PO ONE (07:20)
[2020-09-15 08:07] LABS: PROTHROMBIN TIME 15.5 SECONDS (12.5-14.3)
[2020-09-15 08:08] LABS: PARTIAL THROMBOPLASTIN TIME 33.1 SECONDS (24.2-38.5)
[2020-09-15] MEDS: dexameTHASONE 4 MG/ML 1ML VIAL (J1100 PER 1MG) IV SCH (08:32)
[2020-09-15] MEDS: PANTOPRAZOLE 40MG VIAL (C9113 PER 1) IV SCH ×2 (08:32→21:04)
[2020-09-15] MEDS: ENOXAPARIN 150MG/ML SYRINGE (J1650 PER 10MG) SC SCH ×2 (08:32→21:04)
[2020-09-15 08:33] LABS: D-DIMER QUANT > 4000 ng/ml (<500)
[2020-09-15] MEDS: ALPRAZolam 0.25 MG TAB PO PRN ×2 (08:33→21:04)
[2020-09-15] MEDS: METOPROLOL TART 12.5 MG PER 1/2 TAB PO SCH (08:35)
[2020-09-15] MEDS: guaiFENesin ER 600 MG TAB PO SCH ×2 (08:36→21:04)
[2020-09-15] MEDS ORDERED: NS 500 ML IV ONE ×3 (09:50→16:00)
[2020-09-15] MEDS: REMDESIVIR 100 MG in NS 250 ML IV SCH (10:22)
[2020-09-15 11:26] LABS: ABG BASE EXCESS -0.7 (-2.0-2.0); ABG O2 SATURATION 87.6 % (95.0-99.0); ABG PARTIAL PRESSURE O2 54.6 mmHg (75.0-100.0); ABG STANDARD HCO3 23.7 MEQ/L (22.0-26.0); ABG TOTAL CO2 24.1 MEQ/L (22.0-29.0); ABG pH (ARTERIAL) 7.436 UNITS (7.350-7.450)
[2020-09-15] MEDS ORDERED: METOPROLOL TART 12.5 MG PER 1/2 TAB PO ONE (14:50)
--- NOTE | 2020-09-15 16:34 | IPNPDOC ---
Text Note Date of Service The patient was seen on 09/15/20. NOTE Subjective: Tested positive for covid on 08/31/2020, today would be day 16. Patient examined at bedside today. She is still on CPAP on 18 L/90% of FiO2. Overnight she was on 16/90% of FiO2 back in the morning she was very anxious and having tachycardia of 140 and the settings were changed. She was given Xanax to help with her anxiety. We did give her to 500 mL bolus of fluid to see if that would improve her tachycardia, and her heart rate improved a bit and is running in 120s. She denied having any overnight events denies having any fever, chills, chest pain. Objective: Physical exam: Gen.: Patient is alert oriented 3, was laying in bed, appears not in acute distress. Cardiac: S1 normal, S2 normal, regular rate and rhythm, no murmurs appreciated. Respiratory: Decreased breath sounds bilaterally in the lower lobes , clear to auscultate in the upper lobes, no wheezes or rhonchi. Abdomen: Noted ecchymosis from her subcutaneous injections, normal bowel sounds, no tenderness in the rest of the abdomen. Extremities: No pedal edema. Assessment: Patient is a 50-year-old female who initially presented to the hospital on 09/01/2020 with abdominal pain and was diagnosed with incarcerated incisional hernia who eventually got surgery for the same. Patient was diagnosed with covid 19 08/31/2020, she initially did not have any symptoms hold later after the surgery decompensated on 09/06/2020 and was transferred to ICU. Covid 19 infection: - Patient is still on CPAP at settings of 18 L/90% FiO2. She was having tachycardia running in 140s and was given 2 x 500 mL NaCl bolus and that brought her heart rate to 120s. -Patient did get metoprolol 12.5 mg the late afternoon, will give her 25 mg metoprolol the evening dose, we will see if that will decrease her tachycardia. - And is on day 9 of dexamethasone 4 mg. She is on day 2 of remedisvir [total remedisvir 7th day dose] - S/P tocilizumab 2 doses - Patient is on CPAP and is desaturating to 60s when the CPAP was taken off for her medications. She does report to have an decreased appetite but given her desaturations is only eating very little. We'll start her on TPN. - Will continue Lovenox 125 mg twice a day for d-dimer some still more than 4000. Transient atrial fibrillation: - Patient had an episode of atrial fibrillation on Sunday, was started on full dose anticoagulation and metoprolol 12.5 mg. - Based on clinical improvement in future will try to decrease her dosage. - Recent has a CHADS VAS score of 1 she has a low risk for stroke. - Her likely episode of transient A. fib is due to Covid/tachycardia. - Patient is not in A. fib now Incarcerated incisional hernia repair: - Patient did have an robotic surgery for the above on 09/02/2020. -Patient is having oral food intake. - Her incision sites are healing well no discharge or erythema noted. JAQUELINE: - Patient is on CPAP at home. DVT prophylaxis: Lovenox 125 mg twice a day GI prophylaxis: Protonix 40 MG twice a day Disposition: Pending clinical improvement. VS,Fishbone, I+O VS, Fishbone, I+O Laboratory Tests 09/15/20 05:33 Vital Signs Date Time Temp Pulse Resp B/P (MAP) Pulse Ox O2 Delivery O2 Flow Rate FiO2 09/15/20 15:33 30 122/64 09/15/20 15:30 32 NIPPV (BIPAP/CPAP) 100 09/15/20 14:00 87 18.0 09/15/20 12:00 99.3 I&O- Last 24 Hours up to 6 AM 09/15/20 06:00 Intake Total 2160 ml Output Total 425 ml Balance 1735 ml GME ATTESTATION GME ATTESTATION My faculty preceptor for this patient encounter was physically present during the encounter and was fully available. All aspects of the patient interview, examination, medical decision making process, and medical care plan development were reviewed and approved by the faculty preceptor. The faculty preceptor is aware and concurs with the plan as stated in the body of this note and will attest to such by his/her cosignature. ATTENDING NOTE I, Cecil Carr MD, have independently examined this patient and performed my own physical exam, as well as reviewed the documentation and edited where malena winslow. I have discussed in detail with the resident / student the findings and plan of treatment as documented by the resident / student and edited their note. I agree with their findings and treatment plan and have edited their documentation. Teri Martinez MD Sep 15, 2020 16:34 CECIL CARR MD Sep 17, 2020 15:53
[2020-09-15] MEDS ORDERED: FAT EMULSION IV 20% 500 ML IV SCH (18:00)
[2020-09-15] MEDS ORDERED: AMINO AC/ELECTROLYTE/DEX/CALC 2,000 ML IV SCH (18:00)
[2020-09-15] MEDS ORDERED: METOPROLOL TART 25 MG TABLET PO ONE (21:00)
[2020-09-15] MEDS: MONTELUKAST 10 MG TAB PO SCH (21:04)
--- NOTE | 2020-09-15 22:05 | IPNPDOC ---
Text Note Date of Service The patient was seen on 09/15/20. NOTE TIME OF SERVICE 947PM I was informed by the patient's RN Bin that the patient's RR was in the 50s and he was concerned that she was deteriorating. At the time of my visit the patient had been switched to BIPAP for a few min. I asked her if she would like to continue with BIPAP or would prefer to be put to sleep and intubated and she said she would prefer to be intubated. PE: HR 135 / RR 51 / O2 sats 87% / BP 118/66 She was seated up leaning forward against the hospital table. Diaphoretic Tachpneic and using accessory muscles. Able to speak a few words. Tachycardic. #Acute Hypoxemic Respiratory Distress 2/2 COVID 19 Plan: consult Anesthesia to intubate the patient / consult (Pul) for Vent management The patient's daughter Lucita Anthony was informed. VS,Fishbone, I+O VS, Fishbone, I+O Laboratory Tests 09/15/20 05:33 Vital Signs Date Time Temp Pulse Resp B/P (MAP) Pulse Ox O2 Delivery O2 Flow Rate FiO2 09/15/20 20:07 100 09/15/20 20:00 99.3 124 118/66 (83) 89 NIPPV (BIPAP/CPAP) 18.0 09/15/20 16:00 32 I&O- Last 24 Hours up to 6 AM 09/15/20 06:00 Intake Total 2160 ml Output Total 425 ml Balance 1735 ml DIAMANTE FREITAS MD Sep 15, 2020 22:05
[2020-09-15] MEDS ORDERED: LORazepam 2 MG/ML VIAL IV STA (22:20)
[2020-09-15] MEDS ORDERED: PROPOFOL 1,000 MG/100 ML VIAL As Ordered ONE (22:28)
[2020-09-15] MEDS ORDERED: VANCOMYCIN HCL 1,000 MG, VIAL MATE ADAPTER 1 EACH in NS 250 ML IV SCH (22:50)
[2020-09-15] MEDS ORDERED: FUROSEMIDE 20MG/2ML VIAL (J1940) As Ordered ONE (22:59)
[2020-09-15] MEDS ORDERED: VECURONIUM BROMIDE 10MG VIAL As Ordered ONE (22:59)
[2020-09-15] MEDS ORDERED: FUROSEMIDE 40MG/4ML VIAL (J1940) As Ordered ONE (22:59)
[2020-09-15] MEDS ORDERED: REFRIGERATOR IV KEYS XX PRN (23:15)
[2020-09-15] MEDS ORDERED: FUROSEMIDE 100MG/10ML VIAL (J1940) IV ONE (23:15)
[2020-09-15] MEDS ORDERED: VECURONIUM BROMIDE 10MG VIAL IV ONE (23:15)
[2020-09-15 23:18] LABS: ABG BASE EXCESS -2.6 (-2.0-2.0); ABG HCO3 25.9 MEQ/L (22.0-26.0); ABG O2 SATURATION 78.7 % (95.0-99.0); ABG PARTIAL PRESSURE O2 50.1 mmHg (75.0-100.0); ABG STANDARD HCO3 21.9 MEQ/L (22.0-26.0); ABG TOTAL CO2 27.8 MEQ/L (22.0-29.0)
[2020-09-15 23:22] LABS: ABG PARTIAL PRESSURE CO2 61.4 mmHg (35.0-45.0); ABG pH (ARTERIAL) 7.243 UNITS (7.350-7.450)
--- NOTE | 2020-09-15 23:26 | REPVR ---
PROCEDURE INFORMATION: Exam: XR Chest Exam date and time: 09/15/2020 10:52 PM Age: 50 years old Clinical indication: Other: Intubation; Additional info: S/P intubation TECHNIQUE: Imaging protocol: XR of the chest. Views: 1 view. COMPARISON: CR PORTABLE CHEST X-RAY 09/09/2020 9:25 PM FINDINGS: Tubes, catheters and devices: Right upper extremity PICC line with tip in the superior vena cava. Lungs: Worsening bilateral infiltrates, now obscuring the hemidiaphragms bilaterally. Pleural spaces: Suspect bilateral pleural effusions. Heart/Mediastinum: Cardiomegaly. Bones/joints: Tip of the ET tube is at the level of the clavicular heads, approximately 6.5 cm above to the alonso. IMPRESSION: 1. ET tube is at the level of the clavicular heads, approximately 6.5 cm above to the alonso. 2. Worsening bilateral infiltrates, now obscuring the hemidiaphragms bilaterally. 3. Suspect bilateral pleural effusions. Electronically signed by: Arina Lemus On 09/15/2020 23:27:00 PM
[2020-09-15] MEDS: MIDAZOLAM HCL 100 MG in D5W 80 ML IV SCH (23:30)
[2020-09-15] MEDS ORDERED: ROCURONIUM BROMIDE 50 MG/5 ML VIAL As Ordered ONE (23:57)
[2020-09-15] MEDS ORDERED: propofoL 200 MG/20 ML VIAL As Ordered ONE (23:57)
[2020-09-16] VITALS (24 sets, daily range): BP systolic 101–156; BP diastolic 50–78
--- NOTE | 2020-09-16 00:11 | ECGEPIP ---
[facility] Test Date: 2020-09-15 Pat Name: LANDON BETANCOURT Department: Room: [place] [address] Gender: Female [employer] Sailor: mark : 1970 Requested By: YU BARRAGAN Order Number: [id number] Reading MD: Petey Ang Measurements Intervals [place] Rate: 145 P: 68 VA: 120 QRS: 71 QRSD: 74 T: 89 QT: 346 QTc: 537 Interpretive Statements Critical Test Result: High HR Sinus tachycardia vs Atrial Flutter with 2:[address] & T wave abnormality, consider inferior ischemia Compared to prior tracings in the system, prior episodes of atrial fibrillation n noted Electronically Signed on 09-16-2020 0:11:28 EDT by Petey Ang
[2020-09-16] MEDS ORDERED: methylPREDNISolone 125MG 2ML VIAL IV ONE (01:00)
[2020-09-16] MEDS ORDERED: diphenhydrAMINE 50MG/ML VIAL (J1200) IV ONE (01:00)
[2020-09-16] MEDS ORDERED: NS 1,000 ML IV SCH (01:00)
[2020-09-16] MEDS ORDERED: VANCOMYCIN HCL 1,000 MG, VIAL MATE ADAPTER 1 EACH in NS 250 ML IV ONE ×4 (01:00)
[2020-09-16] MEDS: CISATRACURIUM 200 MG in NS 480 ML IV SCH ×2 (01:00→13:22)
[2020-09-16] MEDS ORDERED: diphenhydrAMINE 25MG CAP PO ONE (01:00)
[2020-09-16] MEDS ORDERED: ACETAMINOPHEN TAB 650MG DOSE (2X325MG) PO ONE (01:00)
[2020-09-16] MEDS ORDERED: TOCILIZUMAB 800 MG in NS 60 ML IV ONE (02:00)
[2020-09-16 02:08] LABS: VENOUS BASE EXCESS -2.4 (-2.0-2.0); VENOUS O2 SATURATION 72.3 % (60.0-80.0); VENOUS PARTIAL PRESSURE CO2 86.6 mmHg (38.0-50.0); VENOUS PARTIAL PRESSURE O2 48.9 mmHg (30.0-50.0); VENOUS PH 7.142 UNITS (7.330-7.430); VENOUS STANDARD HCO3 21.9 MEQ/L; VENOUS TOTAL CO2 31.6 MEQ/L (24.0-28.0)
[2020-09-16] MEDS: MORPHINE 2 MG/ML 1ML VIAL (J2270) IV PRN (02:17)
[2020-09-16] MEDS: cefTRIAXone SOD 1 GM in D5W MINI-BAG PLUS 50 ML IV SCH ×2 (03:36→23:49)
[2020-09-16] MEDS: SODIUM CHLORIDE 0.9% INJ 10 ML SYR IV SCH ×3 (04:31→17:36)
[2020-09-16] MEDS ORDERED: MIDAZOLAM HCL 100 MG in D5W 80 ML IV SCH (05:00)
[2020-09-16 05:17] LABS: HEMATOCRIT 44.6 % (36.0-47.0); HEMOGLOBIN 13.6 g/dl (12.0-15.5); MEAN CORPUSCULAR HEMOGLOBIN 29.8 pg (27.0-33.0); MEAN CORPUSCULAR HGB CONC 30.5 g/dl (32.0-36.5); MEAN CORPUSCULAR VOLUME 97.8 fl (80.0-96.0); PLATELET COUNT, AUTOMATED 307 10^3/uL (150-450); RED BLOOD COUNT 4.56 10^6/uL (4.00-5.40); WHITE BLOOD COUNT 20.6 10^3/uL (4.0-10.0)
[2020-09-16 05:24] LABS: LYMPHOCYTES 2 % (16-44); MONOCYTES 1 % (0-5); NEUTROPHILS 90 % (28-66); PLATELET ESTIMATE NORMAL (NORMAL)
[2020-09-16 05:25] LABS: ANISOCYTOSIS 1+
--- NOTE | 2020-09-16 05:48 | RO ---
OPERATIVE NOTE DATE OF OPERATION: 09/15/2020 PREOPERATIVE DIAGNOSIS: Hypotension POSTOPERATIVE DIAGNOSIS: Hypotension. PROCEDURE: Right triple lumen internal jugular venous catheter. SURGEON: Maninder Chan DO [facility]ILER: None ANESTHESIA: The patient is on sedation for mechanical ventilation. DESCRIPTION OF PROCEDURE: Procedure was deemed urgent. The patient with hypotension and limited venous access with severe hypoxia recently, intubated by anesthesia, deemed emergent, therefore no consent was obtained. The patient is a full code. Time-out was performed with two patient identifiers, identifying correct site, correct procedure. The right IJ was prepped in a sterile manner with chlorhexidine and full sterile barrier precautions. Under direct ultrasound guidance, the Raulerson syringe was guided into the right IJ with return of venous blood flow. The wire was fed through the needle and the needle was removed. Olegario in the skin and a dilator was placed. Triple lumen catheter was placed via modified Seldinger technique and wire was removed. All three ports return venous blood flow and flushed easily. There were no observed complications. Line was sutured in 15 cm. Chest x-ray shows tip of the catheter in SVC. Sterile impregnated dressing was placed over the site. There were no observed complications. MTDD
[2020-09-16 05:50] LABS: ALBUMIN 2.8 GM/DL (3.2-5.2); ALT/SGPT 29 U/L (12-78); BILIRUBIN,TOTAL 0.4 MG/DL (0.2-1.0); BLOOD UREA NITROGEN 16 MG/DL (7-18); CALCIUM LEVEL 8.5 MG/DL (8.5-10.1); CARBON DIOXIDE LEVEL 30 MEQ/L (21-32); CHLORIDE LEVEL 103 MEQ/L (98-107); GLOMERULAR FILTRATION RATE > 60.0 (>51); GLUCOSE, FASTING 213 MG/DL (70-100); POTASSIUM SERUM 4.2 MEQ/L (3.5-5.1); SODIUM LEVEL 138 MEQ/L (136-145)
[2020-09-16 06:03] LABS: C REACTIVE PROTEIN QUANTITATIV 6.35 MG/DL (0.00-0.30)
[2020-09-16 06:04] LABS: ABG BASE EXCESS -5.6 (-2.0-2.0); ABG HCO3 25.1 MEQ/L (22.0-26.0); ABG O2 SATURATION 89.6 % (95.0-99.0); ABG PARTIAL PRESSURE O2 70.4 mmHg (75.0-100.0); ABG STANDARD HCO3 19.7 MEQ/L (22.0-26.0); ABG TOTAL CO2 27.4 MEQ/L (22.0-29.0)
[2020-09-16 06:09] LABS: ABG PARTIAL PRESSURE CO2 76.3 mmHg (35.0-45.0); ABG pH (ARTERIAL) 7.135 UNITS (7.350-7.450)
[2020-09-16] MEDS ORDERED: methylPREDNISolone 125MG 2ML VIAL IV PRN (07:01)
[2020-09-16] MEDS ORDERED: diphenhydrAMINE 50MG/ML VIAL (J1200) IV PRN (07:01)
[2020-09-16] MEDS ORDERED: EPINEPHrine INJ 1 MG/ML 1ML AMP IM PRN (07:01)
[2020-09-16] MEDS ORDERED: ALBUTEROL SULFATE 2.5 MG/0.5 ML INH NEB SOLN INH PRN (07:01)
[2020-09-16] MEDS: IPRATROPIUM 0.5MG/ALBUTEROL 2.5MG INH SOL UD 3ML (DUONEB) NEB SCH ×4 (07:30→19:33)
--- NOTE | 2020-09-16 08:14 | REP ---
INDICATION: central line placement. 11:31 p.m. radiograph. COMPARISON: Comparison radiograph is from the same date at 10:54 p.m.. TECHNIQUE: Portable upright AP chest radiograph. FINDINGS: Endotracheal tube remains in good position at the level of the proximal clavicles. EKG monitoring electrodes are seen. The previously noted right sided PICC line is again seen in place terminating in the expected location of superior vena cava. A right internal jugular central venous catheter has been placed since the earlier radiograph. Its tip is also in the expected location of the superior vena cava. There is no visible pneumothorax. Extensive perihilar alveolar edema/infiltrate pattern persists. Hazy opacity in the bases consistent with bilateral pleural effusions. Heart borders are obscured by the parenchymal edema pattern. There are air bronchograms in the perihilar regions.. Suspect cardiac enlargement. Parenchymal disease is more prominent than on the 09 September 2020 study. No acute bony abnormality. Fusion plate hardware is seen in the cervical spine. IMPRESSION: Extensive alveolar edema/infiltrate pattern progressed since September 09, 2020. New right IJ line in place. No evidence of pneumothorax. Endotracheal and right sided PICC lines again noted unchanged.. <Electronically signed by Barney Rosado > 09/16/20 [id number]
[2020-09-16] MEDS ORDERED: FUROSEMIDE 100MG/10ML VIAL (J1940) IV ONE (08:30)
[2020-09-16] MEDS: PANTOPRAZOLE 40MG VIAL (C9113 PER 1) IV SCH ×2 (08:46→20:33)
[2020-09-16] MEDS: ENOXAPARIN 150MG/ML SYRINGE (J1650 PER 10MG) SC SCH ×2 (08:46→20:34)
[2020-09-16] MEDS: dexameTHASONE 4 MG/ML 1ML VIAL (J1100 PER 1MG) IV SCH (08:46)
[2020-09-16] MEDS: CHLORHEXIDINE GLUCONATE 0.12 % 15ML UDC (PERIDEX ORAL RINSE) MT SCH ×2 (08:46→20:33)
--- NOTE | 2020-09-16 08:55 | REP ---
INDICATION: respiratory failure. COMPARISON: Comparison chest x-ray September 15, 2020. TECHNIQUE: Portable chest x-ray 7:15 a.m. AP semi-erect technique.. FINDINGS: Extensive diffuse alveolar edema/infiltrate pattern persists with bilateral air bronchograms. Consistent with ARDS, volume overload, CHF, versus diffuse alveolar pneumonitis. Endotracheal tube remains in good position just below the level of the proximal clavicles. NG tube enters the left upper quadrant on today's radiograph. Right IJ and right-sided PICC central venous catheters are seen with their tips adjacent 1 another in position of the superior vena cava.. IMPRESSION: NG tube to the left upper quadrant. Otherwise unchanged. Extensive alveolar lung disease bilaterally and diffusely.. <Electronically signed by Barney Rosado > 09/16/20 [id number]
[2020-09-16] MEDS ORDERED: METOPROLOL TART 12.5 MG PER 1/2 TAB PO SCH (09:00)
[2020-09-16] MEDS: MIDAZOLAM HCL 100 MG in D5W 80 ML IV SCH ×2 (09:38→21:23)
--- NOTE | 2020-09-16 09:42 | CCN ---
CRITICAL CARE NOTE DATE: 09/15/2020 Critical care time was 1 hour and 15 minutes, this excludes all procedures. SUBJECTIVE: I was called urgently by the hospitalist team, who was caring for this 50-year-old patient. She had been in the hospital, admitted on 09/01/2020 with gastrointestinal (GI) symptoms. She had robotic repair of a strangulated hernia on 09/02/2020 on admission; however, did have positive COVID. It was noted since September 06 she had progression of increased oxygen requirements and for the past week has been significantly hypoxic with worsening respiratory status. This evening went into ventilatory failure stating that she was becoming too weak to breathe, was intubated. On my arrival, the patient has had oxygen saturation at 66%. pAO2 after I obtained blood gas was only 50. This was after I made adjustments to the mechanical ventilation, increased PEEP to 15, decreased tidal volume, increased respiratory rate. I then paralyzed the patient in order to hopefully increase oxygen delivery. At this point in time, deciding the appropriate time to prone the patient. There has not been any imaging since 09/09/2020. Prior to that, a chest CT showed diffuse multilobar pneumonia. The patient is not on antibiotics at this point in time. Ceftriaxone and vancomycin were added. The patient remained on Decadron 4 mg IV, Lovenox 125 mg subcutaneous q 12 hours and is on remdesivir despite it being quite some time since her presentation with COVID. The patient did receive tocilizumab on 09/09/20. OBJECTIVE: Temperature is 99.3, pulse is 138, respiratory rate is 22, blood pressure is 118/66 with a MAP of 83. Oxygen saturation is 74% on 100% FiO2, which has improved from 66%. General: The patient is sedated on mechanical ventilation, slightly cyanotic. HEENT: Sclerae clear, nonicteric. Pupils equally round and reactive to light. Mucous membranes are moist without lesions. Oropharynx without erythema or exudate. Neck is supple. No tracheal deviation. Lymphs: No supraclavicular or axillary adenopathy. Cardiac: Distant S1, tachycardiac, S1, S2 without audible murmur or gallop. PMI is difficult to palpate. Pulmonary: Decreased breath sounds throughout both lung nuñez. Abdomen is obese, soft, nontender, non-distended. No hepatosplenomegaly. No masses or hernia. Extremities: No cyanosis, but there is mottling in the lower extremities. Cyanosis of the face, but not of the hands and feet. Skin as mentioned above some mottling of the lower extremities. LABORATORY EVALUATION: Shows a arterial blood gas of pH of 7.24, pCO2 of 62, pO2 of 50. D-dimer is elevated. LVH is elevated. CRP is elevated. White blood cell count is 9.1, hemoglobin 12.3, platelet count of 317. Sodium is 140, potassium is 3.4, chloride is 107, bicarbonate of 30, BUN of 16, creatinine of 0.39. The patient is making good urine at the bedside. Chest x-ray shows bilateral lower lobe infiltrate, blunting of the costophrenic angles. IMPRESSION: 1. Respiratory failure severe, hypoxic respiratory failure. Very poor prognosis with high likelihood of . Parlysis was induced to try to decrease oxygen demand. Will consider prone positioning. Will obtain transthoracic echocardiogram when able and lasix has been given. Differential of hypoxia remains wide but is most likely related to COVID disease. I have added IV antibiotics in case there is a concomitant pneumonia. 2. Sinus tachycardia due to severe hypoxia, discontinuing the metoprolol due to lower blood pressures. 3. COVID. The patient is on Decadron, on Lovenox, on remdesivir, although I do not think this will be helpful, may try tocilizumab as a salvage therapy as inflammatory markers are starting to increase again. 4. Gastrointestinal prophylaxis. The patient is on IV Protonix. MTDD
[2020-09-16 11:05] LABS: ABG BASE EXCESS 0.7 (-2.0-2.0); ABG HCO3 30.6 MEQ/L (22.0-26.0); ABG O2 SATURATION 93.9 % (95.0-99.0); ABG PARTIAL PRESSURE O2 78.6 mmHg (75.0-100.0); ABG TOTAL CO2 32.9 MEQ/L (22.0-29.0)
[2020-09-16] MEDS: REMDESIVIR 100 MG in NS 250 ML IV SCH (11:05)
[2020-09-16 11:08] LABS: ABG PARTIAL PRESSURE CO2 75.9 mmHg (35.0-45.0); ABG pH (ARTERIAL) 7.223 UNITS (7.350-7.450)
--- NOTE | 2020-09-16 11:10 | CCN ---
CRITICAL CARE NOTE DATE: 09/16/2020 CRITICAL CARE TIME: 1 hour and 35 minutes; this excludes all procedures. SUBJECTIVE: The patient continued to have hypoxia overnight, but had improved oxygen saturation up to 86% to 87%, 100% FiO2, PEEP of 15, paralyzed, and on sedation. I made the decision to perform prone ventilation. She was prone this morning. Oxygen saturations with some improvement up to 89% and 90% with proning. Will prone for 16 hours and then reevaluate. OBJECTIVE: VITAL SIGNS: Temperature is 99.7, pulse remains in sinus tachycardia with a heart rate ranging 127 to 143, blood pressure 136/60. In prone position oxygen saturation is 90% on 100% FiO2. GENERAL: The patient is sedated and paralyzed on mechanical ventilation. HEENT: No scleral icterus. Mucous membranes are moist. Tongue is midline. Neck is supple. No tracheal deviation or mass. LYMPHATICS: No cervical, supraclavicular, or axillary adenopathy. Right IJ in place without surrounding erythema or exudate. PULMONARY: Decreased breath sounds throughout both lung nuñez. No dullness to percussion. No accessory muscle use. CARDIAC: Distant S1, S2 tachycardic without murmur, rub or gallop. No elevated JVP. Surprisingly only minimal systemic edema. ABDOMEN: Obese, soft, nontender, and nondistended. No hepatosplenomegaly. No masses or hernia. EXTREMITIES: No cyanosis or clubbing. Minimal modeling of the lower extremities. LABORATORY DATA: Shows a sodium of 138, potassium 4.2, chloride 103, bicarb 30, BUN 16, creatinine 0.6, glucose 213. White blood cell count of 20.6 is up from 9.1, hemoglobin 13.6, platelet count of 307,000, 90% neutrophilia, 7 bands. Arterial blood gas this morning pH of 7.14, pCO2 of 76, PaO2 of 70. IMAGING DATA: Chest x-ray shows bibasilar opacification and continued increased interstitial markings less so in the left upper lobe. There is a left IJ in place. There is a PICC line in place. Endotracheal tube is in good position with the tip of the endotracheal tube at 5 cm above the alonso. This is after advancement. IMPRESSION: 1. Very severe hypoxic respiratory failure likely secondary to COVID; however, will rule out fungal infection. Fungal titers and cultures have been sent. The patient on broad-spectrum antibiotics now with leukocytosis. Possible secondary bacterial infection. Differential includes pulmonary embolism. The patient is already on Lovenox 125 subcutaneously q. 12 hours. There could be a component of extra volume. Lasix has been given. As long as urine output is adequate and BUN and creatinine remain okay, we will continue efforts towards diuresis; as I believe this has caused some improvement. 2. Probable pneumonia as mentioned above on broad-spectrum antibiotics. Will obtain Calcitonin for future decisions; however, at this point in time given the severity of her disease, I would not de-escalate therapy. 3. Tachycardia currently sinus. Had a history of atrial fibrillation/atrial flutter. I believe this is secondary to the severity of the hypoxia. If the patient converts to an atrial fibrillation will consider rate control at that point in time. Metoprolol held at this point in time. 4. COVID pneumonia. Trial of tocilizumab yesterday. I do not believe remdesivir is improving the patient at all now that it has been two weeks since the positive test. We will obtain a transthoracic echocardiogram as there is likely cardiomyopathy; however; given the fact that she is prone right now cannot be performed. I have increased Decadron. Her enzymes have been slowly increasing up and her CRP is up to 6.35 today. 5. Hyperglycemia. Will cover with q. 6 coverage. 6. Gastrointestinal (GI) prophylaxis with Protonix. 7. Deep vein thrombosis (DVT) prophylaxis with Lovenox. PROGNOSIS: Extremely guarded. High risk of ICU neuropathy, myopathy, and high risk for .
[2020-09-16] MEDS ORDERED: METOPROLOL 5 MG/5 ML VIAL IV STA (11:47)
[2020-09-16] MEDS: METOPROLOL TART 25 MG TABLET PO SCH ×3 (12:14→23:50)
[2020-09-16] MEDS: HumaLOG INSULIN (NovoLOG) PER UNIT SC SCH ×2 (12:15→17:35)
[2020-09-16] MEDS: VANCOMYCIN HCL 750 MG, VIAL MATE ADAPTER 1 EACH in NS 250 ML IV SCH ×2 (12:33→20:04)
[2020-09-16] MEDS: VANCOMYCIN HCL 500 MG in D5W MINI-BAG PLUS 100 ML IV SCH ×2 (13:23→21:13)
[2020-09-16] MEDS: ACETAMINOPHEN TAB 650MG DOSE (2X325MG) PO PRN (16:00)
--- NOTE | 2020-09-16 16:45 | IPNPDOC ---
Text Note Date of Service The patient was seen on 09/16/20. NOTE Subjective: Tested positive for covid on 08/31/2020, today would be a 17. Patient seen and examined at bedside today. At around midnight Patient was intubated as she was desaturating and her heart rate was in 50s. Pulmonary was consulted and the vent settings are being taken care of by them. In the morning and I was in the patient is an prone position intubated, on volume control, PEEP of 15, respiratory rate of 22, tidal volume of 440. Objective: Physical exam: Gen.: Patient is intubated, sedated with medication, was lying in prone position. HEENT: As per them as she was having some bleeding from nose likely due to her continuous use of CPAP up to yesterday. Respiratory: Diminished bilateral breath sounds in lower lobes. Extremities: No pedal edema. Assessment: Patient is a 50-year-old female who initially presented to the hospital on 09/01/2020 with abdominal pain and was diagnosed with incarcerated incisional hernia who eventually got surgery for the same. Patient was diagnosed with covid 19 08/31/2020, she initially did not have any symptoms due to Covid later after the surgery decompensated on 09/06/2020 and was transferred to ICU. Patient was initially on Vapotherm and CPAP intermittently which later she was continuously on CPAP for 2-3 days up until yesterday she started desaturating and was intubated overnight. # Acute respiratory distress syndrome secondary to covid 19 infection: - And was intubated overnight, ventilator settings will be managed by offset press assistant. Is on volume control, PEEP of 15, she is in prone position and is saturating in upper 80s to 90s. -Patient's dexamethasone was increased to 6 mg or 4 mg and this will be day 10 of a steroid She is on day 3 of remedisvir [total remedisvir 8 day dose] - S/p tocilizumab 2 doses last week, she did receive an extra dose of tocilizumab overnight after intubation. - Patient is on Lovenox 125 mg twice a day. - She has been given an 60 mg dose of Lasix to see if that will improve her co ndition. - She has been started on vancomycin and ceftriaxone as a white count has been elevated from 9.1 to 20.6 will also get a pro-calcitonin level. - Patient is still tachycardic and her heart rate is in the 130s, she didn't even get a dose of metoprolol when her heart rate is up in 150s Incarcerated incisional hernia repair: - Patient did have an robotic surgery for the above on 09/02/2020. -Patient is having oral food intake. - Her incision sites are healing well no discharge or erythema noted. JAQUELINE: - Patient is on CPAP at home. DVT prophylaxis: Lovenox 125 mg twice a day GI prophylaxis: Protonix 40 MG twice a day Disposition: Pending clinical improvement. VS,Fishbone, I+O VS, Fishbone, I+O Laboratory Tests 09/16/20 05:06 Vital Signs Date Time Temp Pulse Resp B/P (MAP) Pulse Ox O2 Delivery O2 Flow Rate FiO2 09/16/20 10:00 143 136/60 (85) 90 Ventilator 100 09/16/20 08:30 22 09/16/20 08:00 99.1 09/15/20 20:00 18.0 I&O- Last 24 Hours up to 6 AM 09/16/20 06:00 Intake Total 1171.6 ml Output Total 1960 ml Balance -788.4 ml GME ATTESTATION GME ATTESTATION My faculty preceptor for this patient encounter was physically present during the encounter and was fully available. All aspects of the patient interview, examination, medical decision making process, and medical care plan development were reviewed and approved by the faculty preceptor. The faculty preceptor is aware and concurs with the plan as stated in the body of this note and will attest to such by his/her cosignature. ATTENDING NOTE I, Cecil Carr MD, have independently examined this patient and performed my own physical exam, as well as reviewed the documentation and edited where necessary. I have discussed in detail with the resident / student the findings and plan of treatment as documented by the resident / student and edited their note. I agree with their findings and treatment plan and have edited their documentation. Teri Martinez MD Sep 16, 2020 11:24 CECIL CARR MD Sep 17, 2020 15:57
[2020-09-16] MEDS: dexameTHASONE 20MG/5ML VIAL (J1100 PER 1MG) IV SCH (20:33)
[2020-09-16] MEDS: ACETAMINOPHEN 650 MG SUPP PR PRN (20:34)
[2020-09-17] VITALS (75 sets, daily range): BP systolic 81–133; BP diastolic 37–77
[2020-09-17] MEDS: HumaLOG INSULIN (NovoLOG) PER UNIT SC SCH ×4 (00:27→18:11)
[2020-09-17] MEDS: CISATRACURIUM 200 MG in NS 480 ML IV SCH ×2 (03:10→16:52)
[2020-09-17] MEDS: VANCOMYCIN HCL 750 MG, VIAL MATE ADAPTER 1 EACH in NS 250 ML IV SCH (04:02)
[2020-09-17] MEDS: ACETAMINOPHEN 650 MG SUPP PR PRN (04:03)
[2020-09-17 04:49] LABS: HEMATOCRIT 40.1 % (36.0-47.0); HEMOGLOBIN 12.1 g/dl (12.0-15.5); MEAN CORPUSCULAR HGB CONC 30.2 g/dl (32.0-36.5); MEAN CORPUSCULAR VOLUME 99.5 fl (80.0-96.0); PLATELET COUNT, AUTOMATED 249 10^3/uL (150-450); RED BLOOD COUNT 4.03 10^6/uL (4.00-5.40)
[2020-09-17 04:53] LABS: ABG BASE EXCESS 5.1 (-2.0-2.0); ABG HCO3 33.8 MEQ/L (22.0-26.0); ABG O2 SATURATION 83.7 % (95.0-99.0); ABG STANDARD HCO3 28.7 MEQ/L (22.0-26.0); ABG pH (ARTERIAL) 7.289 UNITS (7.350-7.450)
[2020-09-17 04:54] LABS: ABG PARTIAL PRESSURE CO2 72.1 mmHg (35.0-45.0); ABG PARTIAL PRESSURE O2 47.9 mmHg (75.0-100.0)
[2020-09-17] MEDS ORDERED: DIGOXIN INJ 0.5 MG/2 ML AMP (J1160) IV ONE (05:00)
--- NOTE | 2020-09-17 05:04 | IPNPDOC ---
Text Note Date of Service The patient was seen on 09/17/20. NOTE I was informed by the patient's RN that the pt was having frequent PVCs. EKG showed Aflutter. HR is labile between 140s to 180s Will start digoxin Didnt resume beta ellie bc her BP is low VS,Fishbone, I+O VS, Fishbone, I+O Laboratory Tests 09/16/20 05:06 09/17/20 04:04 Vital Signs Date Time Temp Pulse Resp B/P (MAP) Pulse Ox O2 Delivery O2 Flow Rate FiO2 09/17/20 03:00 111 22 110/55 (73) 89 Ventilator 100 09/17/20 02:00 100.8 09/15/20 20:00 18.0 I&O- Last 24 Hours up to 6 AM 09/17/20 06:00 Intake Total 2469.75 ml Output Total 3075 ml Balance -605.25 ml DIAMANTE FREITAS MD Sep 17, 2020 05:04
[2020-09-17] MEDS ORDERED: AMIODARONE HCL 150 MG in IV 1 EA IV STA (05:05)
[2020-09-17 05:09] LABS: ATYPICAL LYMPH 1 % (0-5); BASOPHILS 2 % (0-1); LYMPHOCYTES 1 % (16-44); MONOCYTES 1 % (0-5); NEUTROPHILS 94 % (28-66)
[2020-09-17 05:10] LABS: PLATELET ESTIMATE NORMAL (NORMAL)
[2020-09-17] MEDS: METOPROLOL TART 25 MG TABLET PO SCH (05:12)
[2020-09-17] MEDS: VANCOMYCIN HCL 500 MG in D5W MINI-BAG PLUS 100 ML IV SCH (05:12)
[2020-09-17] MEDS: SODIUM CHLORIDE 0.9% INJ 10 ML SYR IV SCH ×3 (05:18→18:12)
[2020-09-17 05:26] LABS: ALBUMIN 2.5 GM/DL (3.2-5.2); ALT/SGPT 21 U/L (12-78); BILIRUBIN,TOTAL 0.3 MG/DL (0.2-1.0); BLOOD UREA NITROGEN 17 MG/DL (7-18); C REACTIVE PROTEIN QUANTITATIV 3.42 MG/DL (0.00-0.30); CALCIUM LEVEL 8.2 MG/DL (8.5-10.1); CARBON DIOXIDE LEVEL 38 MEQ/L (21-32); CHLORIDE LEVEL 102 MEQ/L (98-107); CREATININE FOR GFR 0.41 MG/DL (0.55-1.30); FERRITIN 590 NG/ML (8-252); GLOMERULAR FILTRATION RATE > 60.0 (>51); GLUCOSE, FASTING 130 MG/DL (70-100); LDH LACTATE DEHYDROGENASE 828 U/L (84-246); MAGNESIUM LEVEL 2.1 MG/DL (1.8-2.4); POTASSIUM SERUM 3.8 MEQ/L (3.5-5.1); SODIUM LEVEL 140 MEQ/L (136-145); TOTAL PROTEIN 6.2 GM/DL (6.4-8.2)
[2020-09-17 06:26] LABS: ABG BASE EXCESS 3.7 (-2.0-2.0); ABG HCO3 31.9 MEQ/L (22.0-26.0); ABG O2 SATURATION 97.4 % (95.0-99.0); ABG PARTIAL PRESSURE O2 102.3 mmHg (75.0-100.0); ABG STANDARD HCO3 27.8 MEQ/L (22.0-26.0); ABG TOTAL CO2 33.9 MEQ/L (22.0-29.0); ABG pH (ARTERIAL) 7.296 UNITS (7.350-7.450)
[2020-09-17 06:29] LABS: ABG PARTIAL PRESSURE CO2 66.9 mmHg (35.0-45.0)
[2020-09-17] MEDS ORDERED: AMIODARONE HCL 360 MG in IV 1 EA IV SCH (07:35)
[2020-09-17] MEDS ORDERED: AMIODARONE HCL 150 MG in IV 1 EA IV ONE (08:00)
--- NOTE | 2020-09-17 08:14 | REP ---
INDICATION: respiratory failure COMPARISON: 09/16/2020 TECHNIQUE: Portable AP view of the chest FINDINGS: Exam position of the endotracheal tube is limited due to overlying nasogastric tube. Nasogastric tube courses below left hemidiaphragm. Right IJ line with tip in the SVC. The mediastinum and cardiac silhouette are stable and within normal limits for portable technique. The lung nuñez demonstrate diffuse bilateral airspace disease essentially unchanged from prior examination. Layering effusions cannot be excluded. IMPRESSION: Diffuse bilateral airspace disease without significant change from prior examination. <Electronically signed by Israel Holguin > 09/17/20 0845
[2020-09-17] MEDS: PANTOPRAZOLE 40MG VIAL (C9113 PER 1) IV SCH ×2 (08:22→20:30)
[2020-09-17] MEDS: CHLORHEXIDINE GLUCONATE 0.12 % 15ML UDC (PERIDEX ORAL RINSE) MT SCH ×2 (08:25→20:31)
[2020-09-17] MEDS: dexameTHASONE 20MG/5ML VIAL (J1100 PER 1MG) IV SCH ×2 (08:26→20:29)
[2020-09-17] MEDS: ENOXAPARIN 150MG/ML SYRINGE (J1650 PER 10MG) SC SCH ×2 (08:26→20:30)
[2020-09-17] MEDS: MIDAZOLAM HCL 100 MG in D5W 80 ML IV SCH ×3 (08:30→21:15)
[2020-09-17] MEDS ORDERED: diltiaZEM 125 MG in NS 100 ML IV SCH ×2 (09:00→21:00)
[2020-09-17] MEDS ORDERED: METOPROLOL 5 MG/5 ML VIAL IV STA (09:08)
[2020-09-17] MEDS: MORPHINE 2 MG/ML 1ML VIAL (J2270) IV PRN ×3 (09:22→21:09)
[2020-09-17] MEDS: IPRATROPIUM 0.5MG/ALBUTEROL 2.5MG INH SOL UD 3ML (DUONEB) NEB SCH ×4 (09:26→20:45)
--- NOTE | 2020-09-17 09:54 | IPNPDOC ---
Text Note Date of Service The patient was seen on 09/17/20. NOTE Subjective: Tested positive record on 08/31/2020, today would be day 18. Patient was intubated on 09/16/2020 spreader and today is day 2 of her being intubated. Patient seen at bedside. She is in volume control mode on ventilation, and her PEEP was increased from 15-18, and respiratory rate was increased from 22-24, tidal volume of 440. Overnight she did have an episode of atrial flutter and was started on amiodarone. Today morning heart heart rate was in 170s and she was given a second dose of amiodarone as well when I was in there to see her. Her saturations were upper 80s. She was started on antibiotics vancomycin and ceftriaxone yesterday and today is day 2. She is clinically not better since yesterday. As patient is intubated and is managed actively by pulmonology and she would be shifted care from us to pulmonary as the primary. Patient's family was given a call [her fianc] and was informed about her situation and that she is not doing well. Physical exam: Gen.: Patient is intubated, today is day 2, she is been sedated with medications. She is in supine position. Cardiac: She is very tachycardic heart rate running in 150-170. Respiratory: Diminished breath sounds. Extremities: No pedal edema GI: She is on Protonix 40 mg but nurse reports that she is having dark secretions on suctioning likely from gastric mucosal bleeding. Assessment: Patient is a 50-year-old female who initially presented to the hospital on 09/01/2020 with abdominal pain and was diagnosed with incarcerated incisional hernia who eventually got surgery for the same. Patient was diagnosed with covid 19 08/31/2020, she initially did not have any symptoms due to Covid later after the surgery decompensated on 09/06/2020 and was transferred to ICU. Patient was initially on Vapotherm and CPAP intermittently which later she was continuously on CPAP for 2-3 days up until 09/16/2020 when she was intubated. Acute respiratory distress syndrome secondary to covid 19 infection: - Patient is on ventilator [D2], on volume control settings, PEEP of 18, respiratory rate of 24, tidal volume of 440. Ventilator settings are being managed by marketing content coordinator. - She did have an overnight episode of atrial flutter and was started on amiodarone. Heart heart rate is in 150-170 range. - She is on day 4 of remedisvir [total remedisvir D9 dose] - She is on dexamethasone 6 mg. -Patient was given an extra dose of tocilizumab yesterday, she already got 2 doses of tocilizumab last week. - She is on Lovenox 125 mg twice a day. - She was started on antibiotics vancomycin and ceftriaxone yesterday. [D2]. - As patient was intubated the primary care would be taken over by pulmonology/marketing content coordinator Incarcerated incisional hernia repair: - Patient did have an robotic surgery for the above on 09/02/2020. -Patient is having oral food intake. - Her incision sites are healing well no discharge or erythema noted. JAQUELINE: - Patient is on CPAP at home. DVT prophylaxis: Lovenox 125 mg twice a day GI prophylaxis: Protonix 40 MG twice a day Disposition: Patient is very sick and based on her condition right now the option of she being out of ventilator and surviving this is very minimal. Patient family was informed the same and they are aware of her situation. Addendum: Pulmonology/marketing content coordinator going to be the primary on this patient from now on. VS,[place]one, I+O VS, Fishbone, I+O Laboratory Tests 09/17/20 04:04 Vital Signs Date Time Temp Pulse Resp B/P (MAP) Pulse Ox O2 Delivery O2 Flow Rate FiO2 09/17/20 09:22 24 09/17/20 09:20 168 96/49 09/17/20 05:30 91 Ventilator 100 09/17/20 05:00 101.1 09/15/20 20:00 18.0 I&O- Last 24 Hours up to 6 AM 09/17/20 06:00 Intake Total 2469.75 ml Output Total 3150 ml Balance -680.25 ml GME ATTESTATION GME ATTESTATION My faculty preceptor for this patient encounter was physically present during the encounter and was fully available. All aspects of the patient interview, examination, medical decision making process, and medical care plan development were reviewed and approved by the faculty preceptor. The faculty preceptor is aware and concurs with the plan as stated in the body of this note and will attest to such by his/her cosignature. ATTENDING NOTE I, Cecil Carr MD, have independently examined this patient and performed my own physical exam, as well as reviewed the documentation and edited where necessary. I have discussed in detail with the resident / student the findings and plan of treatment as documented by the resident / student and edited their note. I agree with their findings and treatment plan and have edited their documentation. Teri Martinez MD Sep 17, 2020 09:54 CECIL CARR MD October 05, 2020 12:19
[2020-09-17] MEDS ORDERED: VASOPRESSIN INJ 20 UNITS in NS 499 ML IV SCH ×2 (10:00→18:30)
[2020-09-17] MEDS ORDERED: VASOPRESSIN INJ 20 UNITS/ML VIAL As Ordered ONE (10:03)
[2020-09-17] MEDS ORDERED: VANCOMYCIN HCL 500 MG in D5W MINI-BAG PLUS 100 ML IV ONE (13:00)
[2020-09-17] MEDS: VANCOMYCIN HCL 1,000 MG, VIAL MATE ADAPTER 1 EACH in NS 250 ML IV SCH ×2 (13:11→18:12)
[2020-09-17] MEDS: MEROPENEM INJ 2 GM in NS 100 ML IV SCH ×2 (13:12→20:31)
[2020-09-17] MEDS: AMIODARONE HCL 360 MG in IV 1 EA IV SCH (14:03)
--- NOTE | 2020-09-17 17:45 | CCN ---
CRITICAL CARE NOTE DATE: 09/17/2020 SUBJECTIVE: The patient was seen and examined this morning during bedside rounds. Overnight, the patient had been turned supine after she was prone for 16 hours. With returning supine, she did desaturate into the low mid 80s; and after a few hours, she did recover slightly into the mid to high 80s on 100% FiO2 and a PEEP of 15. The patient also had a repeat arterial blood gas done this morning, which had shown continued respiratory acidosis with worsening hypoxia. Her ventilatory settings were therefore adjusted this morning and she was increased to a PEEP of 18 and her respiratory rate was increased to 24 from 22. The repeat arterial blood gas did show some improvement in her hypercapnia, as well as in her oxygenation. The patient was due to return prone again later in the morning.; however, she was having issues with atrial fibrillation with rapid ventricular response. Overnight, the patient's heart rate had gone to the 150s and 160s admission she was given amiodarone 150 mg IV load. This morning her heart rate had gone back up into the 180s persistent and she was given another 150 mg of amiodarone with minimal improvement. She was also started on the IV loading dose of amiodarone, but her heart rate remained elevated. Initially, the patient was maintaining a good blood pressure with a MAP in the high 70s to 80s. She was therefore given diltiazem 5 mg IV push and then an additional metoprolol 5 mg IV push with minimal improvement in her heart rate briefly to 130s before returning to a rapid ventricular response again and heart rate. The patient had also been given a dose of morphine earlier for analgesia as she has remained sedated and paralyzed, but had not received any analgesic medications overnight. She did not have any improvement with the morphine. The patient also continued to be febrile overnight with a T-max up to 101.8. She was given Tylenol with no improvement and was given ice packs as well. The patient then developed hypotension with her atrial fibrillation and rapid ventricular response. Her blood pressure had dropped to the MAP in the 50s. The patient therefore had synchronized cardioversion at 125 joules with return to sinus rhythm with a heart rate of 100. With the return to sinus rhythm, the patient's blood pressure did improve and she was also given bolus of 500 ml of normal saline with her MAPs improving to 62. She was then started on vasopressin with further improvement into her MAPs above 70. With improvement in her heart rate and blood pressure, as well as her 02 saturations going up to 93% while supine, she was then able to be prone again, which she tolerated well with no hemodynamic instability and only minimal desaturation. OBJECTIVE: Vital signs: Temperature T-max 101.8, T-current 101.1, pulse range 100 to 180, respirations 24, blood pressure 123/58, O2 saturation up to 93% on 100% FiO2. Input 3.3 liters, output 4.5 liters, net negative 1.2 liters. General: The patient is intubated, sedated and paralyzed on mechanical ventilation. HEENT: Normocephalic, atraumatic. There is a scab lesion on the bridge of her nose. Tongue is midline. There are moist mucous membranes. Neck is supple. There is right IJ triple lumen in place with some dried blood on the dressing. Cardiac: Somewhat distant heart sounds. Normal S1, S2, tachycardiac with no appreciable murmurs. Unable to palpate PMI. Pulmonary: Diminished breath sounds bilaterally with no significant wheezing or rhonchi. Abdomen: Obese, soft, nontender, non-distended. There are areas of ecchymosis and bruising on the abdomen. There are laparoscopic surgery incisional scars with one incision with some slight serosanguinous drainage. Extremities: There is no significant pitting lower extremity edema bilaterally and no significant edema in the upper extremities. LABORATORY DATA: WBC 10.0, hemoglobin 12.1, platelets are 249. Chemistry: Sodium is 140, potassium is 3.8, chloride is 102, bicarbonate is 38, BUN 17, creatinine is 0.41, glucose is 130, mag is 2.1, calcium is 8.2, AST and ALT is 38 and 21, alkaline phosphatase is 112, albumin s 2.1. Ferritin is 540, T-bili is 0.3, LDH is 821, C-reactive protein trending down to 3.42. Procalcitonin increasing to 0.87, fibrinogen is 308. Arterial blood gas initially this morning 7.289, pCO2 of 72.1, pO2 of 47.9. Repeat arterial blood gas after vent setting changes pH 7.296, pCO2 of 66.9 and pO2 of 102.3 Micro: Blood cultures on admission showed likely contaminated with micrococcus luteus. Repeat blood culture from 09/16/20 showed no growth to date. Chest x-ray this morning shows ET tube and OG tube in position. There is a right IJ triple lumen in place. There is diffuse dense bilateral air space disease with possible layering bilateral pleural effusion. ASSESSMENT: Ms. Kumari is a 50-year-old female with a past medical history of diabetes, asthma, obesity, obstructive sleep apnea (JAQUELINE) had presented initially with abdominal pain. The patient was also noted to be positive for COVID 19 on presentation. The patient was found to have an incarcerated hernia and had required robotic clinical trials assistant hernia repair and a small bowel resection on 09/02/20. The patient's subsequently hospitalization was then complicated with acute hypoxemic respiratory failure in the setting of COVID 19 pneumonia, as well as with atrial fibrillation with rapid ventricular response. The patient was initially on Vapotherm and then on noninvasive ventilation for acute hypoxemic respiratory failure. She had worsening respiratory distress and was ultimately intubated and placed on mechanical ventilation on 09/15/20. The patient had initially been treated with remdesivir, as well as Decadron for her COVID 19 pneumonia and she had also received tocilizumab times 2. The patient was thought to have superimposed bacterial pneumonia, as well as severe ARDS. 1. Neuro: The patient is currently intubated and sedated while on mechanical ventilation. She is currently on a Nimbex drip for paralytic given her severe ARDS and hypoxemic respiratory failure. Will continue the patient on versed drip with as needed Versed and as needed morphine for analgesia. Will continue the patient on Nimbex for today and will likely discontinue Nimbex tomorrow in the morning as she will have been on it at that point for more than 48 hours. 2. Cardiac: The patient with a history of atrial fibrillation and did have episodes of rapid ventricular response likely in the setting of severe hypoxia and respiratory failure during this admission. The patient was on metoprolol by mouth for rate control and she initially was hemodynamically stable despite her sepsis and pneumonia and was not requiring any vasopressors. This morning the patient was more persistent atrial fibrillation with rapid ventricular response. She was given amiodarone IV loading times 2 and then started on the IV loading drip protocol. She was also given IV push metoprolol and diltiazem with minimal improvement. The patient then became hypotensive in the setting of her atrial fibrillation with the rapid ventricular response with a heart rate in the 160s to 180s. She therefore had synchronized cardioversion with return to sinus rhythm. The patient had been on a full dose anticoagulation during her admission in the setting of her COVID 19 pneumonia and atrial fibrillation. The patient's blood pressure did improve after conversion into sinus rhythm. She was given 500 ml bolus as she did have significant diuresis yesterday after receiving Lasix. There was concern now with her persistent fevers and sepsis that she is developing shock and she was requiring the addition of vasopressin to maintain a MAP above 65. The patient may require additional Levophed for her septic shock to maintain a MAP above 65 with close monitoring of her heart rate and tachyarrhythmia. The patient was ordered for an echocardiogram, which she was unable to have done yesterday as she was prone. This morning after she was placed supine she did have her echocardiogram performed, which we will follow up the results. The patient likely does have a degree of some fluid overload with elevated central venous pressure (CVP). However, given concern for septic shock currently, would hold off on further diuresis at this time. Would have to consider diuresing again, however, to help with her oxygenation as this factor to a degree some pulmonary edema and effusion in addition her pneumonia and ARDs on imaging. 3. Pulmonary: The patient with COVID 19 pneumonia with severe ARDS with severe hypoxemic respiratory failure. The patient is currently on mechanica ventilation with volume control with permissive hypercapnia given her severe acute respiratory distress syndrome (ARDS). She did have worsening hypoxia this morning after returning supine and so her vent settings were adjusted. She is currently on settings now of 440/24/118. She did have improvement with her oxygenation with the vent setting changes, as well as in her hypercapnia. The patient will continue with proning as tolerated. Her initial proning was held until later when she was more hemodynamically stable. She is now prone again and will attempt to continue her prone for 16 hours and then supine for 8 hours if tolerated. I will continue to attempt to wean down her FiO2 and PEEP as tolerated to maintain a pO2 above 55. Will continue to monitor her plateau pressures, as then are currently around 32. The patient has already received more than 10 days of remdesivir for her COVID 19 pneumonia, as well as two dose of tocilizumab. Will therefore discontinue the remdesivir but can continue with the dexamethasone, which was increased to 6 mg q 12 hours. She does have evidence of some obstruction. The patient does have a history of asthma. The patient likely with a superimposed bacterial pneumonia given her increasing procalcitonin, as well as with high dose fever. She was started yesterday on antibiotics with ceftriaxone and vancomycin. Will broaden her to meropenem and vancomycin for healthcare associated organisms. I will continue with ventilator care with head of bed elevation and chlorhexidine mouthwash. Will continue with daily arterial blood gases while intubated and chest x-rays as needed. 4. Renal: The patient was given Lasix yesterday for diuresis and did have good urine output. She was net negative this morning and her renal function has remained stable. Will continue monitoring her input and output. Will hold diuretics for today, but likely will resume tomorrow if blood pressure tolerates. Will continue monitoring electrolytes and replete as needed. Will continue with monitoring fingerstick glucose with sliding scale coverage. Gastrointestinal (GI): The patient will currently be nothing by mouth (n.p.o.) while she is being paralyzed. Her OG tube output did have some darker color material, but she is on Protonix twice a day and off oral dose anticoagulation. Will continue to monitoring her OG tube output and would likely start trophic tube feeds once she is off of the paralytics. 5. Heme: The patient is on Lovenox full dose for anticoagulation. She does not currently have any evidence of active bleeding. Code status: Full code. The patient's healthcare proxy, her fiancee and her daughter were updated as to her critical condition and her guarded prognosis. Total critical care time spent, not including any procedures, approximately 2 hours. MTDD
[2020-09-18] VITALS (73 sets, daily range): BP systolic 92–155; BP diastolic 50–88
[2020-09-18] MEDS: VANCOMYCIN HCL 1,000 MG, VIAL MATE ADAPTER 1 EACH in NS 250 ML IV SCH ×5 (00:23→23:28)
[2020-09-18] MEDS: HumaLOG INSULIN (NovoLOG) PER UNIT SC SCH ×4 (00:25→18:11)
[2020-09-18] MEDS: MIDAZOLAM HCL 100 MG in D5W 80 ML IV SCH ×3 (00:30→18:27)
[2020-09-18] MEDS: CISATRACURIUM 200 MG in NS 480 ML IV SCH ×4 (00:32→14:51)
[2020-09-18] MEDS: AMIODARONE HCL 360 MG in IV 1 EA IV SCH (00:34)
[2020-09-18] MEDS: MORPHINE 2 MG/ML 1ML VIAL (J2270) IV PRN ×2 (04:41→07:58)
[2020-09-18 05:18] LABS: ABG BASE EXCESS 9.6 (-2.0-2.0); ABG HCO3 36.6 MEQ/L (22.0-26.0); ABG STANDARD HCO3 33.3 MEQ/L (22.0-26.0); ABG TOTAL CO2 38.5 MEQ/L (22.0-29.0); ABG pH (ARTERIAL) 7.387 UNITS (7.350-7.450)
[2020-09-18 05:19] LABS: ABG PARTIAL PRESSURE CO2 62.3 mmHg (35.0-45.0)
[2020-09-18] MEDS: MEROPENEM INJ 2 GM in NS 100 ML IV SCH ×3 (05:26→21:06)
[2020-09-18 05:39] LABS: BASO % 0.3 % (0.0-1.0); EOS % 0.1 % (0.0-3.0); HEMATOCRIT 35.5 % (36.0-47.0); HEMOGLOBIN 10.8 g/dl (12.0-15.5); LYMPH # 0.5 10^3/uL (1.5-5.0); LYMPH % 6.3 % (24.0-44.0); MEAN CORPUSCULAR HEMOGLOBIN 29.7 pg (27.0-33.0); MEAN CORPUSCULAR HGB CONC 30.4 g/dl (32.0-36.5); MEAN CORPUSCULAR VOLUME 97.5 fl (80.0-96.0); MONO # 0.3 10^3/uL (0.0-0.8); MONO % 3.9 % (2.0-8.0); NEUTROPHILS # 6.3 10^3/uL (1.5-8.5); NEUTROPHILS % 88.3 % (36.0-66.0); PLATELET COUNT, AUTOMATED 214 10^3/uL (150-450); RED BLOOD COUNT 3.64 10^6/uL (4.00-5.40); WHITE BLOOD COUNT 7.2 10^3/uL (4.0-10.0)
[2020-09-18 06:10] LABS: ALBUMIN 2.3 GM/DL (3.2-5.2); ALT/SGPT 21 U/L (12-78); BILIRUBIN,TOTAL 0.3 MG/DL (0.2-1.0); BLOOD UREA NITROGEN 15 MG/DL (7-18); C REACTIVE PROTEIN QUANTITATIV 1.21 MG/DL (0.00-0.30); CALCIUM LEVEL 7.9 MG/DL (8.5-10.1); CARBON DIOXIDE LEVEL 37 MEQ/L (21-32); CHLORIDE LEVEL 100 MEQ/L (98-107); CREATININE FOR GFR 0.36 MG/DL (0.55-1.30); GLOMERULAR FILTRATION RATE > 60.0 (>51); GLUCOSE, FASTING 193 MG/DL (70-100); POTASSIUM SERUM 3.4 MEQ/L (3.5-5.1); SODIUM LEVEL 141 MEQ/L (136-145); TOTAL PROTEIN 5.7 GM/DL (6.4-8.2)
[2020-09-18] MEDS: SODIUM CHLORIDE 0.9% INJ 10 ML SYR IV SCH ×3 (06:42→17:16)
--- NOTE | 2020-09-18 07:28 | IPNPDOC ---
Date Seen The patient was seen on 09/18/20. Progress Note Discussed with Dr. Kumar, account director. Hospitalist Service signing off until patient is extubated. Dr. Kumar will hand off to Hospitalist service once pt is off the ventilator. VS, I&O, 24H, Fishbone Vital Signs/I&O Vital Signs Date Time Temp Pulse Resp B/P (MAP) Pulse Ox O2 Delivery O2 Flow Rate FiO2 09/18/20 06:46 89 24 112/55 96 Ventilator 80 09/18/20 00:00 100.4 09/15/20 20:00 18.0 I&O- Last 24 Hours up to 6 AM 09/18/20 06:00 Intake Total 2721 ml Output Total 1855 ml Balance 866 ml Laboratory Data 24H LABS Laboratory Tests 2 09/17/20 11:15: Bedside Glucose (Misc Panel) 129H 09/17/20 11:16: Vancomycin Level Trough 7.5L 09/17/20 17:56: Bedside Glucose (Misc Panel) 131H 09/18/20 00:20: Bedside Glucose (Misc Panel) 117H 09/18/20 05:12: Blood Gas Bicarbonate Standard 33.3H, Arterial Blood pH 7.387, Arterial Blood Partial Pressure CO2 62.3*H, Arterial Blood Partial Pressure O2 73.0L, Arterial Blood Total CO2 38.5H, Arterial Blood HCO3 36.6H, Arterial Blood Base Excess 9.6H, Arterial Blood Oxygen Saturation 95.0 09/18/20 05:15: Bedside Glucose (Misc Panel) 119H 09/18/20 05:16: Immature Granulocyte % (Auto) 1.1, Neutrophils (%) (Auto) 88.3H, Lymphocytes (%) (Auto) 6.3L, Monocytes (%) (Auto) 3.9, Eosinophils (%) (Auto) 0.1, Basophils (%) (Auto) 0.3, Neutrophils # (Auto) 6.3, Lymphocytes # (Auto) 0.5L, Monocytes # (Auto) 0.3, Eosinophils # (Auto) 0.0, Basophils # (Auto) 0.0, Nucleated Red Blood Cells % (auto) 0.0, Fibrinogen 202L, Anion Gap 4L, Glomerular Filtration Rate > 60.0, Calcium Level 7.9L, Magnesium Level 2.0, Ferritin 444H, Total Bilirubin 0.3, Aspartate Amino Transf (AST/SGOT) 33, Alanine Aminotransferase (ALT/SGPT) 21, Alkaline Phosphatase 87, Lactate Dehydrogenase 746H, C-Reactive Protein, Quantitative 1.21H, Total Protein 5.7L, Albumin 2.3L, Albumin/Globulin Ratio 0.7L CBC/BMP Laboratory Tests 09/18/20 05:16 Microbiology Microbiology 09/16/20 Blood Fungal Culture, Received Pending 09/16/20 Blood Culture - Preliminary, Resulted No growth after 24 hours . All specim... GERMAINE SEAMAN MD Sep 18, 2020 07:28
[2020-09-18] MEDS: IPRATROPIUM 0.5MG/ALBUTEROL 2.5MG INH SOL UD 3ML (DUONEB) NEB SCH ×4 (07:59→20:18)
[2020-09-18] MEDS ORDERED: METOPROLOL 5 MG/5 ML VIAL IV STA (08:05)
[2020-09-18] MEDS ORDERED: METOPROLOL 5 MG/5 ML VIAL As Ordered ONE (08:08)
[2020-09-18] MEDS: PANTOPRAZOLE 40MG VIAL (C9113 PER 1) IV SCH ×2 (08:18→21:05)
[2020-09-18] MEDS: dexameTHASONE 20MG/5ML VIAL (J1100 PER 1MG) IV SCH ×2 (08:18→08:29)
[2020-09-18] MEDS: CHLORHEXIDINE GLUCONATE 0.12 % 15ML UDC (PERIDEX ORAL RINSE) MT SCH ×2 (08:20→21:07)
[2020-09-18] MEDS: ENOXAPARIN 150MG/ML SYRINGE (J1650 PER 10MG) SC SCH ×2 (08:20→21:05)
--- NOTE | 2020-09-18 08:26 | REP ---
INDICATION: respiratory failure. COMPARISON: Comparison portable radiograph September 17, 2020 and September 16, 2020. TECHNIQUE: Portable upright AP chest radiograph. FINDINGS: Endotracheal tube is seen in good position between the proximal clavicles and the aortic arch. Right internal jugular central venous line and right-sided PICC line remain in place terminating in the expected location of the SVC. NG tube enters the left upper quadrant an EKG electrodes are again seen. There is a diffuse alveolar opacities/edema pattern in the lung nuñez with peripherally extending air bronchograms as seen previously. The left hemidiaphragm is obscured and the medial portion of the right hemidiaphragm is obscured. No definite effusion. Heart appears to be normal in size. Lung field findings are unchanged.. IMPRESSION: No radiographic change in the lung field diffuse alveolar edema pattern.. <Electronically signed by Barney Rosado > 09/18/20 0619
[2020-09-18] MEDS: MIDAZOLAM INJ 2MG/2ML VIAL (J2250 PER 1MG) IV PRN ×4 (08:29→21:20)
[2020-09-18] MEDS ORDERED: AMIODARONE 150MG/3ML INJ (J0282) IVP STA (08:32)
[2020-09-18] MEDS ORDERED: AMIODARONE HCL 150 MG in IV 1 EA IV ONE (08:40)
[2020-09-18] MEDS ORDERED: FUROSEMIDE 40MG/4ML VIAL (J1940) IV ONE ×2 (09:00→22:45)
[2020-09-18] MEDS: KCL 20MEQ IN 100ML SWI (KRUN) 20 MEQ in IV 1 EA IV SCH ×8 (09:10→16:38)
--- NOTE | 2020-09-18 13:06 | CCN ---
CRITICAL CARE NOTE DATE: 09/18/2020 SUBJECTIVE: The patient was seen and examined this morning during bedside rounds. Yesterday after her synchronized cardioversion, the patient had remained in sinus rhythm. She did require vasopressin for blood pressure support although was able to wean later in the afternoon. Overnight, she have brief episodes of A fib but would converted spontaneously back into sinus rhythm. She was continued on amiodarone IV loading protocol. Overnight while patient was prone, she was able to wean down on her FiO2 and her PEEP to 80% and a PEEP of 16. She had gone back supine early in the morning but was able to maintain her O2 sats after going supine at 80% FiO2. Later in the morning, however, the patient had gone back into atrial fibrillation with a rapid ventricular response with a heart rate of 150-160s. She then desaturated into the 80s and was increased to 100% FiO2 with an O2 sat still in the mid-80s. Her PEEP was increased to 18 and her O2 sats did slowly improved. The patient's blood pressure was normotensive and more on the hypertensive side. She was therefore given metoprolol 5 mg IV push and diltiazem 10 mg IV push with no improvement. She was given additional amiodarone 150 mg IV push with no improvement and her O2 sats remained only in the high 80s. The patient there had synchronized cardioversion performed again initially with 70 joules but with sustained response and a repeat synchronized cardioversion with 100 joules with a sustained response and conversion into sinus rhythm. With conversion to sinus rhythm, the patient's O2 sats increased and she was able to be weaned down slightly on her FiO2. The patient otherwise remains sedated with a versed drip with p.r.n. morphine for analgesia. She did receive a dose of morphine prior to her synchronized cardioversion. The patient also has remained on a NIMBEX strip although heart rate train of four is 4 out of 4. She is synchronous on the ventilator. The patient did have a did have a low grade temperature overnight. OBJECTIVE: Vitals: Temperature T-max is 100.4, T current 99.7, pulse 89, respirations 24, blood pressure 112/55. O2 sat was 96% on 80% FiO2, now is 92% on 90% FiO2. In is 2.0 liters, out 1.6 liters. General: The patient is intubated and sedated. She is also paralyzed on the mechanical ventilation. HEENT: Normocephalic, atraumatic. The patient has some periorbital edema. There is a scab lesion on the bridge of her nose. There are moist mucous membranes noted. Neck: Supple. Trachea is midline. There is a right triple IJ in place with a dressing on top. Cardiac: Tachycardic, normal S-1, S-2. Unable to appreciate any murmurs. Unable to palpate PMI due to body habitus. Pulmonary: Slightly improved breath sounds with coarser ventilator breath sounds bilaterally. No significant wheezing or rhonchi noted. Abdomen: Obese, soft, nontender, nondistended. There are areas of ecchymosis and bruising on the abdomen. Laparoscopic surgery incisional scars appear healed with one more midline incision that is slightly open. Extremities: There is mild pitting edema in the upper extremities and trace pitting edema in the lower extremities bilaterally. LABS: WBC 7.2, hemoglobin 10.8, platelets are 214. Chemistries: Sodium is 141, potassium is 3.4, chloride is 100, bicarb is 37, BUN 15, creatinine 0.36. Glucose is 193. Calcium is 7.9. Magnesium is 2.0. Ferritin is 444, T bili 0.3. AST and ALT 33 and 21. LDH is 746. CRP is 1.21, Albumin is 2.3, fibrinogen 202. ABG: pH 7.387, pCO2 of 52.3, pO2 of 73.0. IMAGING: Chest x-ray this morning shows an ET tube and OG tube in good position. There is a right IJ triple lumen in place. There are diffuse interstitial opacities with some denser areas with air bronchograms particularly in the lower lobes. There is questionable slight improvement in aeration in the right lower lobe base. ASSESSMENT AND PLAN: Mrs. Kumari is a 50-year-old female with the past medical history of diabetes, asthma, obesity and JAQUELINE who had presented initially with abdominal pain. The patient was found to be COVID-19 positive as well as having an incarcerated hernia that required a robotic-assisted hernia repair and a small bowel resection on 09/02/20. The patient subsequently developed worsening acute hypoxemic respiratory failure in the setting of COVID-19 pneumonia and ultimately had required intubation and was placed on mechanical ventilation on 09/15/20. During her stay, the patient also had issues with atrial fibrillation with a rapid ventricular response. 1. Neuro. The patient is currently intubated and sedated while on mechanical ventilation. She has also been on NIMBEX strip before paralytic given her severe ARDS and hypoxemic respiratory failure. We will continue to slowly wean down and titrate off of the NIMBEX strip if tolerated. We will continue patient on versed drip with p.r.n. versed for agitation and p.r.n. morphine for analgesia. 2. Cardiac. Patient with a history of atrial fibrillation with episodes of rapid ventricular response likely in the setting of her severe hypoxia and respiratory failure during this admission. Yesterday, the patient had persistent atrial fibrillation with rapid ventricular response with hypotension and had synchronized cardioversion with return into sinus rhythm. She was continued on amiodarone IV loading in an attempt to maintain sinus rhythm. This morning, she had converted back into atrial fibrillation with a rapid ventricular response and was noted to have a significant desaturation. She remained normotensive, however, and so attempts were given with metoprolol and IV Cardizem as well as additional IV amiodarone with no success. Given her severe hypoxia, the patient had another episode of synchronized cardioversion and did return into sinus rhythm again. Upon return into sinus rhythm, her O2 sats did improve. We will continue patient with the amiodarone IV loading dose and then switch to IV amiodarone to attempt to maintain her in sinus rhythm. She may need additional antiarrhythmic medication but will consider a cardiology consult. Patient was hypotensive yesterday requiring vasopressin to maintain a MAP of about 65. She has been weaned off of pressors, however, and has been able to maintain her MAP above 65. We will continue to monitor and will start pressors if needed. The patient's echocardiogram yesterday showed a hyperdynamic EF with no significant valvular pathology. She did not have significantly dilated atrium as well. There was evidence of elevated CVP. Given improvement with her blood pressure and suspect a component of fluid overload, we will give patient a dose of Lasix 40 mg IV and monitor her output. 3. Pulmonary. Patient with COVID-19 pneumonia with severe ARDS on mechanical ventilation. Patient has been receiving proning protocol given her severe ARDS and yesterday had been able to wean down on her PEEP slightly as well as her FiO2. This morning given her desaturation with the atrial fibrillation, rapid ventricular response, she was increased on her vent settings again. Patient is currently on mechanical ventilation with volume control settings of 440/24/90 and 18. We will continue with a PEEP of 18 and slowly wean down FiO2 as tolerated but the patient's plateau pressure this morning was around 30. She is due to go prone again around noon. Would monitor her hemodynamic status to determine if she can safely prone. We will continue with daily ABGs and chest x-rays while intubated. We will continue with ventilator care with head of bed elevation and chlorhexidine mouthwash. The patient had already completed more than ten days of remdesivir so that was discontinued. She had also received what seems to be two or three doses of tocilizumab. She is on dexamethasone 6 mg q.12 hours which we will continue for now. She does have a history of asthma and likely some degree of bronchospasm as well. The patient likely with a superimposed bacterial pneumonia. Her antibiotics were broadened yesterday to meropenem and she was to continue with the vancomycin. Her fever curve has been improving. We will follow up the results of her cultures including her fungal cultures. 4. Renal. The patient was noted this morning to have some hypokalemia. She will be repleted with potassium and will follow up with a repeat chemistry this afternoon as she will be given Lasix for diuresis. We will continue to monitor renal function and her ins and outs. We will continue with fingerstick glucose monitoring with sliding scale coverage as needed. 5. GI. Patient has been NPO while on paralytic. will likely start trophic tube feeds tomorrow. cont with PPI BID for GI ppx. 6. Heme. The patient has remained on Lovenox full dose for anticoagulation given her atrial fibrillation as well as with her severe hypoxemic respiratory failure with the COVID-19 pneumonia and elevated D-dimer. She did have a decreasing H&H today and so will repeat CBC this afternoon. We will also get an active type and screen and check coags. Her fibrinogen level was also lower today. There does not appear to be any clinically evident active bleeding. DVT prophylaxis: Lovenox. Code Status: FULL CODE. The patient's healthcare proxy, her fiance, was updated as to her condition. The family is planning for a family meeting to discuss her goals of care and the possibility of a palliative extubation. She does have two children who live further away in [facility] and are planning to drive over the weekend to join the rest of the family in making the decisions. Total critical care time spent not including any procedures approximately one hour and 30 minutes. KIMMY
[2020-09-18] MEDS: diltiaZEM 125 MG in NS 100 ML IV SCH ×2 (13:48→22:04)
[2020-09-18 14:59] LABS: HEMATOCRIT 36.8 % (36.0-47.0); HEMOGLOBIN 11.3 g/dl (12.0-15.5); MEAN CORPUSCULAR HEMOGLOBIN 29.8 pg (27.0-33.0); MEAN CORPUSCULAR HGB CONC 30.7 g/dl (32.0-36.5); MEAN CORPUSCULAR VOLUME 97.1 fl (80.0-96.0); PLATELET COUNT, AUTOMATED 214 10^3/uL (150-450); RED BLOOD COUNT 3.79 10^6/uL (4.00-5.40); WHITE BLOOD COUNT 7.8 10^3/uL (4.0-10.0)
[2020-09-18 15:12] LABS: INR 1.2; PARTIAL THROMBOPLASTIN TIME 30.6 SECONDS (24.2-38.5); PROTHROMBIN TIME 15.5 SECONDS (12.5-14.3)
[2020-09-18 15:19] LABS: BLOOD UREA NITROGEN 16 MG/DL (7-18); CALCIUM LEVEL 8.4 MG/DL (8.5-10.1); CARBON DIOXIDE LEVEL 40 MEQ/L (21-32); CHLORIDE LEVEL 99 MEQ/L (98-107); CREATININE FOR GFR 0.35 MG/DL (0.55-1.30); GLOMERULAR FILTRATION RATE > 60.0 (>51); GLUCOSE, FASTING 143 MG/DL (70-100); POTASSIUM SERUM 3.5 MEQ/L (3.5-5.1); SODIUM LEVEL 141 MEQ/L (136-145)
[2020-09-18] MEDS ORDERED: fentaNYL 100 MCG/2 ML INJECTION (J3010) IV STA (16:33)
[2020-09-18] MEDS: fentaNYL CITRATE 1,000 MCG in NS 80 ML IV SCH (17:15)
--- NOTE | 2020-09-18 20:53 | ECGEPIP ---
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 Premature beats are new Electronically Signed on 09-18-2020 20:53:08 EDT by Petey Ang
[2020-09-18 21:16] LABS: BLOOD UREA NITROGEN 18 MG/DL (7-18); CALCIUM LEVEL 8.5 MG/DL (8.5-10.1); CARBON DIOXIDE LEVEL 42 MEQ/L (21-32); CHLORIDE LEVEL 100 MEQ/L (98-107); CREATININE FOR GFR 0.32 MG/DL (0.55-1.30); GLOMERULAR FILTRATION RATE > 60.0 (>51); GLUCOSE, FASTING 123 MG/DL (70-100); MAGNESIUM LEVEL 2.2 MG/DL (1.8-2.4); POTASSIUM SERUM 3.9 MEQ/L (3.5-5.1); SODIUM LEVEL 140 MEQ/L (136-145)
[2020-09-18] MEDS ORDERED: CISATRACURIUM 10MG/ML 20 ML VIAL IV PRN (21:35)
[2020-09-18] MEDS: CISATRACURIUM 10MG/ML 20 ML VIAL IV PRN (23:24)
[2020-09-19] VITALS (30 sets, daily range): BP systolic 99–166; BP diastolic 51–72
[2020-09-19] MEDS: MIDAZOLAM INJ 2MG/2ML VIAL (J2250 PER 1MG) IV PRN ×5 (02:58→15:55)
[2020-09-19] MEDS: CISATRACURIUM 10MG/ML 20 ML VIAL IV PRN (03:11)
[2020-09-19 05:29] LABS: ABG BASE EXCESS 15.8 (-2.0-2.0); ABG HCO3 41.7 MEQ/L (22.0-26.0); ABG O2 SATURATION 91.7 % (95.0-99.0); ABG PARTIAL PRESSURE CO2 57.2 mmHg (35.0-45.0); ABG PARTIAL PRESSURE O2 58.1 mmHg (75.0-100.0); ABG STANDARD HCO3 39.5 MEQ/L (22.0-26.0); ABG TOTAL CO2 43.5 MEQ/L (22.0-29.0); ABG pH (ARTERIAL) 7.481 UNITS (7.350-7.450)
[2020-09-19] MEDS: MEROPENEM INJ 2 GM in NS 100 ML IV SCH ×3 (05:38→20:30)
[2020-09-19] MEDS: VANCOMYCIN HCL 1,000 MG, VIAL MATE ADAPTER 1 EACH in NS 250 ML IV SCH ×3 (05:38→17:55)
[2020-09-19 05:55] LABS: BASO # 0.1 10^3/uL (0.0-0.2); BASO % 0.8 % (0.0-1.0); EOS # 0.1 10^3/uL (0.0-0.5); EOS % 0.8 % (0.0-3.0); HEMATOCRIT 35.6 % (36.0-47.0); LYMPH # 0.7 10^3/uL (1.5-5.0); LYMPH % 11.4 % (24.0-44.0); MEAN CORPUSCULAR HEMOGLOBIN 30.1 pg (27.0-33.0); MEAN CORPUSCULAR HGB CONC 30.9 g/dl (32.0-36.5); MEAN CORPUSCULAR VOLUME 97.5 fl (80.0-96.0); MONO # 0.3 10^3/uL (0.0-0.8); NEUTROPHILS # 4.8 10^3/uL (1.5-8.5); NEUTROPHILS % 79.7 % (36.0-66.0); PLATELET COUNT, AUTOMATED 213 10^3/uL (150-450); RED BLOOD COUNT 3.65 10^6/uL (4.00-5.40)
[2020-09-19] MEDS: HumaLOG INSULIN (NovoLOG) PER UNIT SC SCH ×4 (06:00→17:54)
[2020-09-19] MEDS: MIDAZOLAM HCL 100 MG in D5W 80 ML IV SCH (06:07)
[2020-09-19] MEDS: diltiaZEM 125 MG in NS 100 ML IV SCH (06:21)
[2020-09-19 06:30] LABS: ALBUMIN 2.4 GM/DL (3.2-5.2); ALT/SGPT 22 U/L (12-78); BILIRUBIN,TOTAL 0.5 MG/DL (0.2-1.0); BLOOD UREA NITROGEN 18 MG/DL (7-18); CALCIUM LEVEL 8.3 MG/DL (8.5-10.1); CARBON DIOXIDE LEVEL 41 MEQ/L (21-32); CHLORIDE LEVEL 99 MEQ/L (98-107); GLOMERULAR FILTRATION RATE > 60.0 (>51); GLUCOSE, FASTING 109 MG/DL (70-100); MAGNESIUM LEVEL 2.2 MG/DL (1.8-2.4); POTASSIUM SERUM 3.5 MEQ/L (3.5-5.1); SODIUM LEVEL 142 MEQ/L (136-145); TOTAL PROTEIN 5.7 GM/DL (6.4-8.2)
[2020-09-19 06:31] LABS: C REACTIVE PROTEIN QUANTITATIV 0.61 MG/DL (0.00-0.30)
[2020-09-19] MEDS: SODIUM CHLORIDE 0.9% INJ 10 ML SYR IV SCH ×2 (08:08→17:55)
--- NOTE | 2020-09-19 08:15 | REP ---
INDICATION: respiratory failure. COMPARISON: Comparison chest x-ray September 18, 2020. TECHNIQUE: Portable upright AP chest radiograph. FINDINGS: Endotracheal tube is seen in good position at the level of the proximal clavicles. NG tube courses through the mediastinum to the bottom of the imaging field of view which is at the diaphragms. Right-sided PICC and internal jugular central venous lines terminate in the superior vena cava location. Monitoring electrodes are seen. There is a diffuse alveolar edema/infiltrate pattern which is slightly improved compared with the September 17, 2020 study. Hazy opacity persists in the bases. I cannot exclude a small amount of pleural fluid.. IMPRESSION: Extensive alveolar opacity/pulmonary edema pattern persists. Some improvement noted since [id number].. <Electronically signed by Barney Rosado > 09/19/20 0812
[2020-09-19] MEDS: IPRATROPIUM 0.5MG/ALBUTEROL 2.5MG INH SOL UD 3ML (DUONEB) NEB SCH ×4 (08:54→19:48)
[2020-09-19] MEDS ORDERED: POTASSIUM CHLORIDE 10% LIQ 20 MEQ/15 ML UDC PO SCH (09:00)
[2020-09-19] MEDS: propofoL 1,000 MG in IV 1 EA IV SCH ×4 (09:37→20:58)
[2020-09-19] MEDS: dexameTHASONE 20MG/5ML VIAL (J1100 PER 1MG) IV SCH ×2 (09:37→20:30)
[2020-09-19] MEDS: PANTOPRAZOLE 40MG VIAL (C9113 PER 1) IV SCH ×2 (09:38→20:29)
[2020-09-19] MEDS: ENOXAPARIN 150MG/ML SYRINGE (J1650 PER 10MG) SC SCH ×2 (09:38→20:29)
[2020-09-19] MEDS: CHLORHEXIDINE GLUCONATE 0.12 % 15ML UDC (PERIDEX ORAL RINSE) MT SCH ×2 (09:39→20:29)
[2020-09-19] MEDS: POTASSIUM CHLORIDE 10% LIQ 20 MEQ/15 ML UDC GT SCH ×2 (09:48→20:28)
[2020-09-19] MEDS ORDERED: FUROSEMIDE 40MG/4ML VIAL (J1940) IV ONE (10:00)
[2020-09-19] MEDS: fentaNYL CITRATE 1,000 MCG in NS 80 ML IV SCH (11:05)
--- NOTE | 2020-09-19 11:23 | CCN ---
CRITICAL CARE NOTE DATE: 09/19/2020 SUBJECTIVE: The patient was seen and examined this morning during bedside rounds. Yesterday afternoon, the patient's heart rate did improve with diltiazem drip. She had gone back into atrial fibrillation with some tachycardia with heart rate in the 120s. With the diltiazem drip, her heart rate improved into the 100s and then she did convert again into sinus rhythm and had remained mostly in sinus rhythm overnight with heart rate in the 70s to 80s. The patient did have episodes, however, tachypnea and vent dyssynchrony despite her sedation with Versed drip and despite additional p.r.n. Versed and the addition of a Fentanyl drip. She did require a few p.r.n. doses of Nimbex for paralytic, as when she does become dyssynchrony with the ventilator she will have significant desaturation. This morning, however, she was able to be weaned down to about 70% FiO2 and her PEEP was weaned down to 16 as she was more adequately sedated and with improved vent synchrony. The patient also has remained afebrile overnight. She did have good urine output yesterday and received an additional 40 mg IV Lasix later in the evening. OBJECTIVE: VITAL SIGNS: Temperature 98.6, pulse 70, respirations 24, blood pressure 116/55, O2 sat is 94% on 70% FiO2. INTAKE AND OUTPUT: In 2.6 liters, out 3.2 liters with an additional 800 mL output since midnight. The patient is net negative at least 1.5 liters. GENERAL: The patient is intubated and sedated while on mechanical ventilation. HEENT: Normocephalic, atraumatic. Periorbital edema has improved. She does have a scabbing healed lesion on the bridge of her nose. There are moist mucous membranes noted. NECK: Supple. Trachea is midline. There is a right IJ triple lumen in place. CARDIAC: Regular rate and rhythm. Normal S1, S2. Unable to appreciate any murmurs clearly. Unable to palpate PMI due to body habitus. PULMONARY: Coarse ventilator breath sounds bilaterally with more diminished breath sounds at the bases. No significant wheezing or rhonchi noted. ABDOMEN: Obese, soft, nontender, and nondistended. There are scattered areas of ecchymosis and bruising on the abdomen. Laparoscopic surgery incision scars are well-healed with one midline incision that is slightly open, but has no significant drainage. EXTREMITIES: There is mild pitting edema in the upper extremities bilaterally with improved only trace edema in the lower extremities bilaterally. LABORATORY DATA: WBC 6.0, hemoglobin 11.0, platelets 213,000. Chemistries: Sodium is 142, potassium 3.5, chloride 99, bicarb 41, BUN 18, creatinine 0.30, glucose is 109. INR is 1.20. Fibrinogen is 184. CRP trending down to 0.61. ABG with pH of 7.481, pCO2 of 57.2, pO2 of 58.1. IMAGING: Chest x-ray this morning shows slight improvement in the extensive valvular infiltrates and opacities bilaterally. There were denser consolidations at the bases. The EEG tube and OG tube are otherwise unchanged. The right PICC line and the right IJ triple lumen are unchanged. ASSESSMENT AND PLAN: Ms. Kumari is a 50-year-old female with a past medical history of diabetes, asthma, obesity, and obstructive sleep apnea (JAQUELINE) who presented initially with abdominal pain. The patient was found to be COVID-19 positive as well as having an incarcerated hernia that required robotic-assisted hernia repair and a small bowel resection of 09/02/2020. The patient then developed worsening acute hypoxemic respiratory failure in the setting of COVID-19 pneumonia and ultimately required intubation and mechanically ventilated on 09/15/2020. The patient's hospital stay has also been complicated by atrial fibrillation with rapid ventricular response. 1. Neurologic: The patient is intubated and sedated. She was able to be weaned off the Nimbex yesterday; however, overnight with episodes of vent dyssynchrony, she did require p.r.n. Nimbex to help improve her vent synchrony and she does have significant desaturation. - The patient was started on a Fentanyl drip for analgesia yesterday afternoon and did notice improvement with the Fentanyl drip, particularly as she was coming off the Nimbex. She is on a Versed drip currently for sedation. As her blood pressures have improved, will wean off the Versed and place her on propofol instead for sedation and continue the Fentanyl drip. - Can continue with Versed p.r.n. for agitation. 2. Cardiac: Patient with atrial fibrillation with episodes of rapid ventricular response and had required two episodes of synchronized cardioversion. She was also given amiodarone IV loading in an attempt to maintain sinus rhythm. Yesterday afternoon, she did go back into atrial fibrillation, although not as much of a rapid ventricular response with a heart rate only in the 120s. She was started on a Cardizem drip as her blood pressure had also been normal at that time and with the Cardizem was able to be rate controlled and had also spontaneously converted back into sinus rhythm. - The patient was increased up to a Cardizem drip of 15 mg/hour and currently is in sinus rhythm and rate controlled. Will transition her to p.o. Cardizem instead with overlap of the Cardizem drip until there is the full p.o. effect. She will be on p.o. Diltiazem at 90 mg q. 6 hours. - The patient's blood pressures have improved. She has not needed any vasopressors in more than 24 hours now to maintain her mean arterial pressure (MAP) above 65. The patient did have good urine output with the Lasix 40 mg IV x2 yesterday and so we will give an additional 40 mg IV push this morning. 3. Pulmonary: Patient with COVID-19 pneumonia with severe acute respiratory distress syndrome (ARDS) on mechanical ventilation. - The patient did require proning protocol and paralytic initially with her severe ARDS. Her oxygen requirements have been improving and so she was not proned yesterday. She does appear to be improving with diuresis and her x-ray today does show some slight improvement. - Will continue the patient on mechanical ventilation with volume control. Her settings have been adjusted with a decrease in her respiratory, as well as in her positive end-expiratory pressure (PEEP) so that she is currently on 440/20/70 and 16. Will continue to wean down her FiO2 as tolerated. She does get dyssynchrony with movement and agitation. - Will continue with daily arterial blood gases (ABGs) and chest x-rays while intubated. - Will continue ventilator care with head of bed elevation chlorhexidine mouthwash. - Will continue with dexamethasone 6 mg q. 12 hours and will likely taper over the next few days. - The patient with suspected superimposed bacterial pneumonia. With meropenem and vancomycin, her leukocytosis and her fever curve had improved. Will follow-up the results of her cultures including her fungal cultures and will repeat a procalcitonin tomorrow to machine bander and cellophaner helper in further de-escalation of antibiotics. 4. Renal: The patient's hypokalemia was repleted yesterday. She does have some mild hypokalemia again with the diuresis. Her renal function has remained normal. Will continue with potassium supplementation b.i.d. while receiving Lasix, continuing monitoring renal function, and ins and outs. - Continue with fingerstick glucose monitoring and sliding scale coverage as needed. 5. Gastrointestinal (GI): The patient had been n.p.o. while on paralytic. Will attempt to start her on trophic tube feeds today and monitor for residuals. - Continue with proton pump inhibitor (PPI) b.i.d. for GI prophylaxis. 6. Hematologic: The patient has remained on full dose Lovenox for anticoagulation given her atrial fibrillation, as well as her severe hypoxic respiratory failure with COVID-19 pneumonia and elevated D-dimer. She did have a decreased hemoglobin and hematocrit (H&H), but that has improved, and there is no evidence of active bleeding. Her fibrinogen was somewhat on the lower side, but she does not have any significant thrombocytopenia currently. Will continue to monitor. Deep vein thrombosis (DVT) prophylaxis with Lovenox full dose. Code status: DNR/trial intubation. Family meeting was held with patient's HCP her giovana Kaur as well as with her secondary HCP her daughter Lucita and with her other children. After extensive discussion of her condition and prognosis the family has determined that she would not have wanted to be resuscitated in the event of a cardiac arrest and had in fact thought that she already had filled out a DNR prior to her hospitalization although we do not have records of this. They would like to continue with the current level of care including ongoing mechanical ventilation as they would like a trial period of intubation. If it appears she will be unable to be weaned from the ventilator the family had agreed that she would not have wanted tracheostomy and prolonged ventilation. TOTAL CRITICAL CARE TIME: Not including procedures approximately 50 minutes. MTDD
[2020-09-20] VITALS (24 sets, daily range): BP systolic 101–149; BP diastolic 55–72
[2020-09-20] MEDS: VANCOMYCIN HCL 1,000 MG, VIAL MATE ADAPTER 1 EACH in NS 250 ML IV SCH ×2 (00:11→05:22)
[2020-09-20] MEDS: propofoL 1,000 MG in IV 1 EA IV SCH ×6 (00:12→20:03)
[2020-09-20] MEDS: MEROPENEM INJ 2 GM in NS 100 ML IV SCH (03:57)
[2020-09-20] MEDS: MIDAZOLAM INJ 2MG/2ML VIAL (J2250 PER 1MG) IV PRN (04:02)
[2020-09-20] MEDS: SODIUM CHLORIDE 0.9% INJ 10 ML SYR IV SCH ×2 (05:22→17:57)
[2020-09-20 05:31] LABS: ABG BASE EXCESS 13.1 (-2.0-2.0); ABG HCO3 38.2 MEQ/L (22.0-26.0); ABG O2 SATURATION 95.9 % (95.0-99.0); ABG PARTIAL PRESSURE CO2 50.8 mmHg (35.0-45.0); ABG PARTIAL PRESSURE O2 80.3 mmHg (75.0-100.0); ABG STANDARD HCO3 36.9 MEQ/L (22.0-26.0); ABG TOTAL CO2 39.8 MEQ/L (22.0-29.0); ABG pH (ARTERIAL) 7.494 UNITS (7.350-7.450)
[2020-09-20] MEDS: HumaLOG INSULIN (NovoLOG) PER UNIT SC SCH ×5 (05:49→23:32)
[2020-09-20 06:19] LABS: HEMATOCRIT 36.1 % (36.0-47.0); HEMOGLOBIN 11.2 g/dl (12.0-15.5); MEAN CORPUSCULAR HEMOGLOBIN 29.9 pg (27.0-33.0); MEAN CORPUSCULAR VOLUME 96.3 fl (80.0-96.0); PLATELET COUNT, AUTOMATED 216 10^3/uL (150-450); RED BLOOD COUNT 3.75 10^6/uL (4.00-5.40); WHITE BLOOD COUNT 5.9 10^3/uL (4.0-10.0)
[2020-09-20 06:25] LABS: BLOOD UREA NITROGEN 25 MG/DL (7-18); CARBON DIOXIDE LEVEL 40 MEQ/L (21-32); CHLORIDE LEVEL 100 MEQ/L (98-107); GLOMERULAR FILTRATION RATE > 60.0 (>51); GLUCOSE, FASTING 150 MG/DL (70-100); SODIUM LEVEL 141 MEQ/L (136-145); VANCOMYCIN LEVEL TROUGH 18.5 UG/ML (10.0-20.0)
--- NOTE | 2020-09-20 07:22 | ECHO ---
DATE OF PROCEDURE: 09/17/2020 Age: 50 Gender: Female Height: 173 cm Weight: 125 kg REFERRING PHYSICIAN: Marce Kumar MD. INDICATION: Sepsis. MEASUREMENTS: 2D Measurements: Left atrium 3.3 cm Aortic root 3.0 cm Inferior vena cava 1.07 cm Posterior wall 0.98 cm Left ventricle diastole 3.7 cm Aortic annulus 2.1 cm Inferior vena cava 2.1 cm with marked reduction of respiratory variation Doppler Measurements: No aortic stenosis or regurgitation No mitral stenosis or regurgitation No tricuspid or pulmonic regurgitation seen Pulmonary artery acceleration time 82 msec suggestive of pulmonary artery systolic pressure in the low 40s. DESCRIPTION: Rhythm was atrial fibrillation with rapid ventricular response. This was a moderately technically difficult echocardiogram. This was a 2D, M- mode, color flow Doppler, and pulsed wave Doppler examination including mitral annular tissue Doppler. No pericardial effusion. CONCLUSIONS: 1. Normal left ventricle internal dimensions and wall thickness. Normal regional LV wall motion. Hyperdynamic LV systolic function. LVEF 75% by visual estimate. LV diastolic function could not be adequately determined in the setting of atrial fibrillation with rapid ventricular response. 2. Suggestive of moderate elevation of pulmonary artery systolic pressure to be in the low 40s. Normal right ventricle size and systolic function. Appearance of mild right ventricular hypertrophy. 3. Atrium appeared normal in size. 4. No vegetations. 5. No pericardial effusion. 6. Mild inferior vena cava plethora suggestive of elevated central venous pressure of at least 20 mmHg. The results of this study were communicated by telephone to Dr. Marce Kumar by Dr. Chan. [facility] CENTER[facility]oon
[2020-09-20] MEDS: IPRATROPIUM 0.5MG/ALBUTEROL 2.5MG INH SOL UD 3ML (DUONEB) NEB SCH ×4 (07:36→19:34)
[2020-09-20] MEDS: fentaNYL CITRATE 1,000 MCG in NS 80 ML IV SCH (08:10)
--- NOTE | 2020-09-20 08:15 | REP ---
INDICATION: respiratory failure. COMPARISON: Comparison chest x-ray September 19, 2020. TECHNIQUE: Portable upright AP chest radiograph. FINDINGS: Endotracheal tube remains in good position at the level of the proximal clavicles. Right-sided PICC and right internal jugular central venous lines are again seen in place with their tips in the expected location of the superior vena cava. NG tube enters the left upper quadrant. Diffuse alveolar pulmonary edema pattern persists although there is some improvement since the September 18 and September 17 prior chest radiographs. There is slight blunting of the pleural angles indicating a small amount of pleural fluid bilaterally. Platelike atelectasis is seen in the left base just above the left hemidiaphragm.. IMPRESSION: Lung nuñez show gradual improvement. Catheters and tubes unchanged.. <Electronically signed by Barney Rosado > 09/20/20 [id number]
[2020-09-20] MEDS ORDERED: FUROSEMIDE 40MG/4ML VIAL (J1940) IV ONE (09:00)
[2020-09-20] MEDS: POTASSIUM CHLORIDE 10% LIQ 20 MEQ/15 ML UDC GT SCH ×2 (09:18→20:01)
[2020-09-20] MEDS: CHLORHEXIDINE GLUCONATE 0.12 % 15ML UDC (PERIDEX ORAL RINSE) MT SCH ×2 (09:21→20:00)
[2020-09-20] MEDS: ENOXAPARIN 150MG/ML SYRINGE (J1650 PER 10MG) SC SCH ×2 (09:23→20:02)
[2020-09-20] MEDS: dexameTHASONE 20MG/5ML VIAL (J1100 PER 1MG) IV SCH (09:24)
[2020-09-20] MEDS: PANTOPRAZOLE 40MG VIAL (C9113 PER 1) IV SCH ×2 (09:25→20:02)
[2020-09-20] MEDS: METOPROLOL TART 25 MG TABLET PO SCH ×2 (12:15→17:58)
--- NOTE | 2020-09-20 13:18 | CCN ---
CRITICAL CARE NOTE DATE: 09/20/2020 SUBJECTIVE: The patient was seen and examined this morning during bedside rounds. Overnight, the patient had done well with the propofol drip for sedation and fentanyl drip for analgesia. She had required very minimal doses of her p.r.n. versed and no dose overnight required of the p.r.n. NIMBEX. This morning even with sedation, the patient appears to be somewhat more responsive and is moving her extremities. She did also spontaneously open her eyes although has not been tracking. The patient did also diurese well yesterday with the IV Lasix and has remained normotensive today. She also has been tolerating her tube feeds with minimal residuals. The patient also remained afebrile overnight. OBJECTIVE: Vitals: Temperature 98.1, pulse 61, respirations 24, blood pressure 121/67, O2 sat 94% on 70% FiO2. Input 2.3 liters, out 2.9 liters, net negative 1.6 liters. General: The patient is intubated and sedated while on mechanical ventilation. She is withdrawing to painful stimuli and doses open her eyes spontaneously. HEENT: Normocephalic, atraumatic. There is a healed scabbed lesion on the bridge of her nose. There are moist mucous membranes noted. Neck is supple. Trachea is midline. There is right IJ triple lumen in place with a dressing that is clean, dry and intact. Cardiac: Regular rate and rhythm, normal S1, S2. Unable to appreciable any murmurs clearly. Pulmonary: Somewhat improved breath sounds bilaterally with more diminished breath sounds at the bases. No significant wheezing or rhonchi noted. Abdomen: Obese, soft, nontender, nondistended. There are scattered areas of ecchymosis and bruising on the abdomen. Laparoscopic surgery incision scars are well healed with one midline incision that is slightly opened but has no significant drainage. Extremities: There is improvement and almost near resolution of the pitting edema in the upper extremities bilaterally and no significant edema now in the lower extremities bilaterally. LABORATORY DATA: WBC 5.9, hemoglobin 11.2, platelets are 216. Chemistries: Sodium 141, potassium 4.0, chloride is 100, bicarb is 40, BUN 25, creatinine is 0.30, glucose 150. ABG: pH 7.494, pCO2 of 50.8, pO2 of 80.3. IMAGING: Chest x-ray this morning shows questionably mildly improved diffuse alveolar interstitial pattern bilaterally. There is some blunting in the costophrenic angles bilaterally and some more plate-like atelectasis in the left lower lobe abutting the hemidiaphragm. The ET tube and the OG tube are otherwise unchanged. The right PICC line and a right IJ triple lumen are unchanged. ASSESSMENT AND PLAN: Miss Kumari is a 50-year-old female with a past medical history of diabetes, asthma, obesity, JAQUELINE who presented initially with abdominal pain secondary to an incarcerated hernia. She was also found to be COVID-19 positive. She did require robotic-assisted hernia repair and small bowel resection on 09/02/20. The patient then developed worsening acute hypoxemic respiratory failure and ultimately required intubation and mechanical ventilation on 09/15/20. The patient's hospital stay was also complicated by atrial fibrillation with a rapid ventricular response. 1. Neurologic. The patient is intubated and sedated. She is propofol drip as well as a fentanyl drip for analgesia. She appears to be more comfortable and synchronous with the propofol drip and is even able to open her eyes spontaneously with sedation and is moving some extremities now to painful stimuli. We will continue with the current sedation and analgesia and with versed p.r.n. for agitation and NIMBEX p.r.n. for episodes of vent synchrony. We will continue to attempt to wean down sedation as tolerated particularly as she is having some improvement in her oxygen requirements. 2. Cardiac. The patient with atrial fibrillation with episodes of rapid ventricular response and required two separate episodes of synchronized cardioversion. She was also given IV amiodarone loading and then additional Cardizem drip for rate control. She is now in sinus rhythm and has been adequately rate controlled. The patient will transition from a Cardizem drip yesterday to p.o. Cardizem which we will continue at 90 mg q.6 hours. The patient's blood pressures have been maintaining with a MAP above 65 and she has been tolerating the Lasix with very good diuresis yesterday. We will continue with an additional 40 mg IV push of Lasix this morning and continue to monitor her ins and outs. She does appear to have improvement in her oxygenation with diuresis. 3. Pulmonary. The patient with COVID-19 pneumonia with severe ARDS on mechanical ventilation. The patient also with suspected superimposed bacterial pneumonia and some degree of pulmonary edema contributing to her hypoxia. The patient initially had required toileting protocol and a paralytic with her severe ARDS. Her oxygen requirements appear to be improving and she is able to be weaned down on her FiO2 and PEEP with diuresis. We will continue to wean down FiO2 and PEEP as tolerated. The is currently on ventilator at 440/20/70/16. We will attempt to wean down her FiO2 to 60 and attempt to further wean down her PEEP to 14 to maintain O2 sat above 88%. We will continue with daily ABGs and chest x-rays while intubated. Continue with vent bundle care with head of bed elevation, chlorhexidine mouthwash. We will taper down her dexamethasone from the 6 mg q.12 hours to 6 mg daily. The patient's leukocytosis and fever curve had improved with broadening of antibiotics to meropenem and the vancomycin. Her repeat procalcitonin today is normal and so we will DC the vancomycin particularly as she had a negative MRSA screen and will deescalate the dose of the meropenem to a lower dose. We will likely be able to discontinue the antibiotics in the next day or two after she has completed a total of five days with the meropenem as she previously had been on other broad-spectrum antibiotics. 4. Renal. The patient did have a slight increase in her BUN today with diuresis although her creatinine is normal still. Her potassium has been doing well with potassium supplementation. We will continue monitoring her electrolytes and replete as needed. We will continue monitoring renal function, ins and outs with diuresis. We will start her on free water flushes as well. She likely will develop a degree of metabolic alkalosis with diuresis. Continue fingerstick glucose monitoring and sliding scale coverage as needed. 5. GI. The patient has been tolerating tube feeds with minimal residuals. She will increase her tube feeds to 30 mL an hour and if no significant residuals in next few hours, then we will further increase to 45 mL an hour. We will also start her on free water flushes. Continue with PPI b.i.d. for GI prophylaxis. 6. Heme. The patient has remained full dose Lovenox for anticoagulation given her atrial fibrillation as well as with her severe hypoxemic respiratory failure initially with COVID-19 pneumonia and elevated D-dimer. Her H&H has remained stable and she does not have any active evidence of bleeding. We will continue with anticoagulation with Lovenox. Code Status: DNR/TRIAL OF INTUBATION. Total critical care time spent, not including any procedures, approximately 40 minutes. MTDD
[2020-09-20] MEDS: MEROPENEM INJ 1 GM in IV 1 EA IV SCH ×2 (13:50→20:02)
[2020-09-21] VITALS (24 sets, daily range): BP systolic 100–133; BP diastolic 51–63
[2020-09-21] MEDS: propofoL 1,000 MG in IV 1 EA IV SCH ×5 (02:24→20:14)
[2020-09-21] MEDS: fentaNYL CITRATE 1,000 MCG in NS 80 ML IV SCH (03:25)
[2020-09-21] MEDS: MEROPENEM INJ 1 GM in IV 1 EA IV SCH ×3 (04:00→20:17)
[2020-09-21 04:20] LABS: HEMATOCRIT 38.2 % (36.0-47.0); MEAN CORPUSCULAR HEMOGLOBIN 30.5 pg (27.0-33.0); MEAN CORPUSCULAR HGB CONC 31.4 g/dl (32.0-36.5); PLATELET COUNT, AUTOMATED 263 10^3/uL (150-450); RED BLOOD COUNT 3.94 10^6/uL (4.00-5.40); WHITE BLOOD COUNT 9.4 10^3/uL (4.0-10.0)
[2020-09-21 04:40] LABS: BLOOD UREA NITROGEN 28 MG/DL (7-18); CALCIUM LEVEL 9.1 MG/DL (8.5-10.1); CARBON DIOXIDE LEVEL 41 MEQ/L (21-32); CHLORIDE LEVEL 98 MEQ/L (98-107); CREATININE FOR GFR 0.33 MG/DL (0.55-1.30); GLOMERULAR FILTRATION RATE > 60.0 (>51); GLUCOSE, FASTING 145 MG/DL (70-100); POTASSIUM SERUM 4.6 MEQ/L (3.5-5.1); SODIUM LEVEL 140 MEQ/L (136-145)
[2020-09-21] MEDS: METOPROLOL TART 25 MG TABLET PO SCH ×2 (05:08)
[2020-09-21] MEDS: HumaLOG INSULIN (NovoLOG) PER UNIT SC SCH ×3 (05:08→17:49)
[2020-09-21] MEDS: SODIUM CHLORIDE 0.9% INJ 10 ML SYR IV SCH ×2 (05:09→17:47)
[2020-09-21 05:50] LABS: ABG BASE EXCESS 9.4 (-2.0-2.0); ABG HCO3 34.8 MEQ/L (22.0-26.0); ABG O2 SATURATION 98.3 % (95.0-99.0); ABG PARTIAL PRESSURE CO2 50.6 mmHg (35.0-45.0); ABG PARTIAL PRESSURE O2 118.7 mmHg (75.0-100.0); ABG STANDARD HCO3 33.2 MEQ/L (22.0-26.0); ABG TOTAL CO2 36.3 MEQ/L (22.0-29.0); ABG pH (ARTERIAL) 7.455 UNITS (7.350-7.450)
[2020-09-21] MEDS: IPRATROPIUM 0.5MG/ALBUTEROL 2.5MG INH SOL UD 3ML (DUONEB) NEB SCH ×4 (07:14→20:03)
--- NOTE | 2020-09-21 08:15 | REP ---
INDICATION: respiratory failure COMPARISON: 09/20/2020 TECHNIQUE: Portable AP view of the chest FINDINGS: Lines and tubes in stable satisfactory position. Cardiac silhouette is stable. Perihilar and lower lobe opacities again noted and similar to prior examination. No pneumothorax identified. IMPRESSION: Lower lobe opacities similar to prior examination. <Electronically signed by Israel Holguin > 09/21/20 0830
[2020-09-21] MEDS: POTASSIUM CHLORIDE 10% LIQ 20 MEQ/15 ML UDC GT SCH (09:17)
[2020-09-21] MEDS: CHLORHEXIDINE GLUCONATE 0.12 % 15ML UDC (PERIDEX ORAL RINSE) MT SCH ×2 (09:17→20:17)
[2020-09-21] MEDS: ENOXAPARIN 150MG/ML SYRINGE (J1650 PER 10MG) SC SCH ×2 (09:20→21:31)
[2020-09-21] MEDS: dexameTHASONE 20MG/5ML VIAL (J1100 PER 1MG) IV SCH (09:22)
[2020-09-21] MEDS: PANTOPRAZOLE 40MG VIAL (C9113 PER 1) IV SCH ×2 (09:28→20:17)
--- NOTE | 2020-09-21 12:27 | CCN ---
CRITICAL CARE NOTE DATE: 09/21/2020 SUBJECTIVE: The patient was seen and examined this morning during bedside rounds. Yesterday the patient has continued to have significant diuresis with the 40 mg IV Lasix that was given. She continues to have good urine output this morning still. She has otherwise been tolerating her tube feeds and did have a soft bowel movement yesterday which was not loose or diarrhea. She has remained afebrile although temperature has been slightly higher than previous. OBJECTIVE: PHYSICAL EXAMINATION: VITAL SIGNS: Temperature 99.7, pulse 70, respirations 25, blood pressure 101/54, 02 sat 96% on 70% FiO2. INTAKE AND OUTPUT: In's 2.6 liters, out 4.1 liters, net negative 1.5 liters. GENERAL APPEARANCE: The patient is intubated and sedated while on mechanical ventilation. She is withdrawing to painful stimuli and does open her eyes spontaneously. HEENT: Normocephalic and atraumatic. There are moist mucous membranes noted. NECK: Supple. Trachea is midline. There is a right IJ triple lumen in place with a dressing that is clean, dry and intact. CARDIAC: Regular rate and rhythm, normal S1, S2, unable to appreciate any murmurs clearly. PULMONARY: Improved breath sounds bilaterally with some more diminished breath sounds at the bases with no significant wheezing or rhonchi. ABDOMEN: Obese, soft, nontender, nondistended. There are scattered areas of ecchymosis and bruising on the abdomen. There are laparoscopic surgery incision scars which are well healed with one midline incision that still has a dressing on. EXTREMITIES: There is no significant pitting edema in the bilateral lower extremities and improvement in the upper extremity edema bilaterally. LABORATORY STUDIES: WBC 9.4, hemoglobin 12.0, platelet count 263. Chemistries - sodium is 140, potassium 4.6, chloride is 98, bicarbonate is 41, BUN 28, creatinine 0.33, glucose 145, calcium is 9.1. ABG: PH 7.455, pco2 50.6, pO2 of 118.7. IMAGING: Chest x-ray shows ET tube and OG tube satisfactory position. There is a IJ triple lumen catheter in place. There is some slight improvement in the bilateral alveolar interstitial opacities with more dense atelectasis in particular in the left lung base. ASSESSMENT AND PLAN: Ms. Kumari is a 50-year-old female with a past medical history of diabetes, asthma, obesity and obstructive sleep apnea who presented initially with abdominal pain secondary to an incarcerated hernia. She was also found to be COVID-19 positive. The patient did require a robotic assisted hernia repair and a small-bowel resection on 09/02/2020. The patient subsequently developed worsening acute hypoxemic respiratory failure and despite being trialed on Vapotherm and non-invasive positive pressure ventilation, ultimately required intubation and mechanical ventilation on 09/15/2020. 1. Neurologic - The patient is intubated and sedated she is on a Propofol drip currently with a Fentanyl drip for analgesia. - We will continue with Versed p.r.n. for agitation and will discontinue the Nimbex p.r.n. as she has been doing better with the sedation and vent synchrony. - We will continue to wean down sedation as tolerated, particularly as she is continuing to have improvement in her oxygen requirements. 2. Cardiac - The patient had atrial fibrillation as well as a rapid ventricular response and had required two separate episodes of synchronized cardioversion. She had also been given IV Amiodarone loading dose and is now in sinus rhythm and adequately rate controlled. - We will continue with Cardizem p.o. at 90 mg q.6 hours. - The patient continues to be normotensive, and she did have good diuresis with IV Lasix. Would hold off on IV Lasix at this time but continue to monitor her in's and out's and consider another low dose, perhaps 20 mg IV if her urine output decreases. - she does have a central line in place which will be day number seven on . We will remove the central line at that time as long as she does not require any vasopressors. 3. Pulmonary - patient with COVID-19 pneumonia and severe ARDS on mechanical ventilation. She has suspected superimposed bacterial pneumonia as well as pulmonary edema contributing to her hypoxia. - We will continue to wean down her FiO2 and PEEP as tolerated. Her x-ray does show some slight improvement in the diffuse alveolar infiltrates although she does have more dense consolidation and atelectasis in the lung bases. She will be weaned down to settings of 440/20/65 and 14 and we will continue to wean down her FiO2 as tolerated and maintain a somewhat higher PEEP strategy. -We will continue with daily ABGs and CXRs while intubated. -Continue with lung bundle care with head of bed elevation and Chlorhexidine mouthwash. -We will continue Dexamethasone 6 mg IV daily and continue with a slow taper. -The patient's procalcitonin had returned yesterday as normal. Her Vancomycin was discontinued. She is still on Meropenem, however at a lower dose and we will continue to monitor. She has been afebrile, although she does have a slightly higher temperature. 4. Renal - The patient does have a mild increase in her BUN although her creatinine has remained stable. We will hold off on diuresis at this time with close monitoring of her in's and out's. -We will with monitoring electrolytes and replete as tolerated. -We will discontinue the p.o. potassium supplementation as we are holding her diuretics at this time. -Continue fingerstick monitoring and sliding scale coverage as needed. 5. GI - The patient has been tolerating tube feeds with minimal residuals. We will continue to increase her tube feeds as tolerated and continue with free water flushes. Continue with PPI twice daily for prophylaxis as she did have previous episodes of some more coffee ground emesis from the OG tube and she is on anticoagulation. 6. Heme - The patient is still on full dose Lovenox for anticoagulation. Her H&H has remained stable and she does not have any evidence of acute bleeding. CODE STATUS DNR/trial of intubation. Total critical care time spent not including procedures approximately 40 minutes. MTDD
[2020-09-21] MEDS: MIDAZOLAM INJ 2MG/2ML VIAL (J2250 PER 1MG) IV PRN ×3 (16:48→21:31)
[2020-09-22] VITALS (22 sets, daily range): BP systolic 103–136; BP diastolic 53–65
[2020-09-22] MEDS: propofoL 1,000 MG in IV 1 EA IV SCH ×7 (00:46→22:23)
[2020-09-22] MEDS: HumaLOG INSULIN (NovoLOG) PER UNIT SC SCH ×5 (00:46→23:44)
[2020-09-22] MEDS: fentaNYL CITRATE 1,000 MCG in NS 80 ML IV SCH ×2 (02:16→23:40)
[2020-09-22] MEDS: MIDAZOLAM INJ 2MG/2ML VIAL (J2250 PER 1MG) IV PRN (03:52)
[2020-09-22] MEDS: MEROPENEM INJ 1 GM in IV 1 EA IV SCH (04:16)
[2020-09-22] MEDS: SODIUM CHLORIDE 0.9% INJ 10 ML SYR IV SCH ×2 (05:50→17:37)
[2020-09-22 06:12] LABS: ABG BASE EXCESS 10.3 (-2.0-2.0); ABG O2 SATURATION 97.9 % (95.0-99.0); ABG PARTIAL PRESSURE CO2 53.4 mmHg (35.0-45.0); ABG PARTIAL PRESSURE O2 106.7 mmHg (75.0-100.0); ABG STANDARD HCO3 34.1 MEQ/L (22.0-26.0); ABG TOTAL CO2 37.7 MEQ/L (22.0-29.0); ABG pH (ARTERIAL) 7.447 UNITS (7.350-7.450)
[2020-09-22 06:22] LABS: BASO # 0.1 10^3/uL (0.0-0.2); BASO % 1.1 % (0.0-1.0); EOS % 0.3 % (0.0-3.0); HEMATOCRIT 37.3 % (36.0-47.0); HEMOGLOBIN 11.7 g/dl (12.0-15.5); LYMPH # 0.7 10^3/uL (1.5-5.0); LYMPH % 9.2 % (24.0-44.0); MEAN CORPUSCULAR HGB CONC 31.4 g/dl (32.0-36.5); MEAN CORPUSCULAR VOLUME 95.6 fl (80.0-96.0); MONO # 0.3 10^3/uL (0.0-0.8); MONO % 4.3 % (2.0-8.0); NEUTROPHILS # 5.7 10^3/uL (1.5-8.5); NEUTROPHILS % 79.2 % (36.0-66.0); PLATELET COUNT, AUTOMATED 231 10^3/uL (150-450); WHITE BLOOD COUNT 7.2 10^3/uL (4.0-10.0)
[2020-09-22 06:32] LABS: INR 1.08; PROTHROMBIN TIME 14.2 SECONDS (12.5-14.3)
[2020-09-22 06:49] LABS: BLOOD UREA NITROGEN 21 MG/DL (7-18); CALCIUM LEVEL 9.1 MG/DL (8.5-10.1); CARBON DIOXIDE LEVEL 38 MEQ/L (21-32); CHLORIDE LEVEL 98 MEQ/L (98-107); CREATININE FOR GFR 0.29 MG/DL (0.55-1.30); GLOMERULAR FILTRATION RATE > 60.0 (>51); GLUCOSE, FASTING 116 MG/DL (70-100); POTASSIUM SERUM 4.3 MEQ/L (3.5-5.1); SODIUM LEVEL 138 MEQ/L (136-145)
[2020-09-22] MEDS: IPRATROPIUM 0.5MG/ALBUTEROL 2.5MG INH SOL UD 3ML (DUONEB) NEB SCH ×4 (07:36→19:47)
--- NOTE | 2020-09-22 07:54 | REP ---
INDICATION: respiratory failure COMPARISON: 09/21/2020 TECHNIQUE: Portable AP view of the chest FINDINGS: Endotracheal tube, nasogastric tube, right IJ line and right PICC line are in stable satisfactory position. The mediastinum and cardiac silhouette are stable. Lower lobe opacities including retrocardiac consolidation again noted and essentially unchanged. No obvious effusion. No obvious pneumothorax. Skeletal structures stable. IMPRESSION: Perihilar and lower lobe opacities similar to prior examination. <Electronically signed by Israel Holguin > 09/22/20 [id number]
[2020-09-22] MEDS: dexameTHASONE 20MG/5ML VIAL (J1100 PER 1MG) IV SCH (10:25)
[2020-09-22] MEDS: PANTOPRAZOLE 40MG VIAL (C9113 PER 1) IV SCH ×2 (10:25→21:54)
[2020-09-22] MEDS: CHLORHEXIDINE GLUCONATE 0.12 % 15ML UDC (PERIDEX ORAL RINSE) MT SCH ×2 (10:25→21:54)
[2020-09-22] MEDS: ENOXAPARIN 150MG/ML SYRINGE (J1650 PER 10MG) SC SCH ×2 (10:25→21:54)
[2020-09-22] MEDS: ACETAMINOPHEN 325 MG/10.15 ML UDC GT PRN (15:28)
[2020-09-22] MEDS ORDERED: FUROSEMIDE 20MG/2ML VIAL (J1940) IV ONE (16:35)
--- NOTE | 2020-09-22 22:13 | CCN ---
CRITICAL CARE NOTE DATE: 09/22/2020 SUBJECTIVE: The patient was seen and examined this morning during bedside rounds. Overnight the patient did not have any acute events. She has been afebrile but does have a low grade temperature, although less than 100 but 99 throughout the evening. She has been doing well, tolerating tube feeds with no significant residuals. She is somewhat more responsive today, particularly to painful stimuli and does appear to be reaching for her ET tube at times. OBJECTIVE: PHYSICAL EXAMINATION: VITAL SIGNS: Temperature 99.1, pulse 63, respirations 24-27, blood pressure 119/55, O2 sat 95% on 60% FiO2. INTAKE AND OUTPUT: In's 2.5 liters, out 2.4 liters, negative positive 114 mL. GENERAL APPEARANCE: The patient is intubated and sedated while on mechanical ventilation. She does respond to painful stimuli and is opening her eyes spontaneously. HEENT: Normocephalic and atraumatic. There are moist mucous membranes noted. NECK: Supple. Trachea is midline. There is a triple lumen catheter in the right IJ in place. CARDIAC: Regular rate and rhythm, normal S1, S2, unable to appreciate murmurs. PULMONARY: Somewhat improved breath sounds bilaterally with more diminished breath sounds at the bases with no significant wheezing or rhonchi. ABDOMEN: Obese, soft, nontender, nondistended. There are scattered areas of ecchymosis and bruising on the abdomen. There are laparoscopic surgery incision scars with one midline incision with a dressing in place. EXTREMITIES: There is no significant pitting edema in the bilateral lower extremities and no edema in the upper extremities currently. LABORATORY STUDIES: WBC 7.2, hemoglobin 11.7, platelets are 231. Chemistries - sodium 138, potassium 4.3, chloride 98, bicarbonate 38, BUN 21, creatinine 0.29, glucose 116. INR is 1.08. ABG - pH 7.447, pco2 of 63.4, pO2 of 106.7. IMAGING: Chest x-ray shows the ET tube and OG tube in place. There is a triple lumen catheter on the right IJ in place. There is improvement in the bilateral alveolar infiltrates bilaterally with evidence of some atelectasis along the bases and in particular more plate like atelectasis in the left lower quadrant. ASSESSMENT AND PLAN: Mrs. Kumari is a 50-year-old female with a past medical history of diabetes, asthma, obesity and obstructive sleep apnea who presented initially with abdominal pain secondary to incarcerated hernia. She was also found to be COVID-19 positive. The patient did require robotic assisted hernia repair and a small bowel resection on 09/02/20. The patient also subsequently developed worsening hypoxemic respiratory failure with ultimate need for intubation and mechanical ventilation on 09/15/20. 1. Neuro - This patient is intubated and sedated. She is on Propofol drip currently with Fentanyl drip for analgesia. She is on Versed as well p.r.n. for sedation. - Given improvement in her oxygenation, will attempt to wean down sedation and a possible sedation vacation tomorrow in the a.m. 2. Cardiac - The patient had episodes of atrial fibrillation with rapid ventricular response and had previously required episodes of synchronized cardioversion. She is now rate controlled, had previously received amiodarone - The patient does have a central line in place which we will remove when it is day seven, as she has remained off of vasopressors and maintaining her MAP above 65. - We will continue Cardizem p.o. at 90 mg q. 6 hours. - the patient did have good urine output yesterday although her Lasix was on hold given her mild increase in her BUN. That has improved today and so we will give an additional 20 mg IV Lasix for further diuresis, as it does help with her oxygenation. 3. Pulmonary - patient with COVID-19 pneumonia and severe ARDS, on mechanical ventilation. She also has suspected superimposed bacterial pneumonia as well as pulmonary edema contributing to her hypoxia. - The patient has had improvement on x-ray in her decreased alveolar infiltrates. She does have more areas of consolidation atelectasis in the bases, particularly in the left lower lobe. We will continue to wean down her vent settings as tolerated and in particular her PEEPs slowly. She will be on 440/20/50 and 12's and we will continue to wean down and assess for potential for a weaning trial in the a.m. - Continue with daily ABGs and chest x-rays while intubated. - Continue with vent bundle care with head of bed elevation, Chlorhexidine mouthwash. - We will continue with Dexamethasone 6 mg IV daily. I would continue slow taper. - The patient is on Meropenem currently the Vancomycin previously had been discontinued. We will continue to monitor her fever curve. 4. Renal - The patient did have mild increase in her BUN with diuretics. It has improved today and her creatinine has remained stable. We will therefore give an additional 20 mg IV Lasix and monitor in's and out's. - We will continue monitoring electrolytes and replete as tolerated. - Continue with fingersticks, glucose monitoring and sliding scale coverage as needed. 5. GI - The patient has been tolerating tube feeds well with minimal residuals. She was increased to goal rate of 50 mL an hour and we will continue with free water flushes. - continue with PPI twice daily for prophylaxis. 6. Heme - The patient is on full dose Lovenox for anticoagulation. Her H&H has remained stable and she has no evidence of active bleeding. CODE STATUS: DNR/trial intubation. Total critical care time excluding procedures approximately 35 minutes. MTDD
[2020-09-23] VITALS (23 sets, daily range): BP systolic 102–140; BP diastolic 54–67
[2020-09-23] MEDS: propofoL 1,000 MG in IV 1 EA IV SCH ×3 (01:47→09:13)
[2020-09-23] MEDS: MIDAZOLAM INJ 2MG/2ML VIAL (J2250 PER 1MG) IV PRN (03:33)
[2020-09-23 04:05] LABS: BASO # 0.1 10^3/uL (0.0-0.2); BASO % 0.8 % (0.0-1.0); HEMATOCRIT 39.6 % (36.0-47.0); HEMOGLOBIN 12.6 g/dl (12.0-15.5); LYMPH # 0.6 10^3/uL (1.5-5.0); LYMPH % 5.6 % (24.0-44.0); MEAN CORPUSCULAR HEMOGLOBIN 30.1 pg (27.0-33.0); MEAN CORPUSCULAR HGB CONC 31.8 g/dl (32.0-36.5); MEAN CORPUSCULAR VOLUME 94.7 fl (80.0-96.0); MONO # 0.4 10^3/uL (0.0-0.8); MONO % 3.7 % (2.0-8.0); NEUTROPHILS # 8.4 10^3/uL (1.5-8.5); NEUTROPHILS % 85.2 % (36.0-66.0); PLATELET COUNT, AUTOMATED 253 10^3/uL (150-450); RED BLOOD COUNT 4.18 10^6/uL (4.00-5.40); WHITE BLOOD COUNT 9.9 10^3/uL (4.0-10.0)
[2020-09-23 04:24] LABS: BLOOD UREA NITROGEN 24 MG/DL (7-18); CALCIUM LEVEL 8.4 MG/DL (8.5-10.1); CARBON DIOXIDE LEVEL 38 MEQ/L (21-32); CHLORIDE LEVEL 99 MEQ/L (98-107); CREATININE FOR GFR 0.37 MG/DL (0.55-1.30); GLOMERULAR FILTRATION RATE > 60.0 (>51); GLUCOSE, FASTING 132 MG/DL (70-100); POTASSIUM SERUM 4.6 MEQ/L (3.5-5.1); SODIUM LEVEL 138 MEQ/L (136-145)
[2020-09-23] MEDS: SODIUM CHLORIDE 0.9% INJ 10 ML SYR IV SCH ×2 (05:34→18:00)
[2020-09-23 06:21] LABS: ABG BASE EXCESS 7.7 (-2.0-2.0); ABG HCO3 32.7 MEQ/L (22.0-26.0); ABG O2 SATURATION 95.3 % (95.0-99.0); ABG PARTIAL PRESSURE CO2 47.1 mmHg (35.0-45.0); ABG PARTIAL PRESSURE O2 77.6 mmHg (75.0-100.0); ABG STANDARD HCO3 31.5 MEQ/L (22.0-26.0); ABG TOTAL CO2 34.1 MEQ/L (22.0-29.0); ABG pH (ARTERIAL) 7.459 UNITS (7.350-7.450)
[2020-09-23] MEDS: HumaLOG INSULIN (NovoLOG) PER UNIT SC SCH ×4 (06:28→23:42)
[2020-09-23] MEDS: IPRATROPIUM 0.5MG/ALBUTEROL 2.5MG INH SOL UD 3ML (DUONEB) NEB SCH ×4 (07:55→19:50)
--- NOTE | 2020-09-23 08:15 | REP ---
INDICATION: respiratory failure COMPARISON: 09/22/2020 TECHNIQUE: Portable AP view of the chest FINDINGS: Endotracheal tube 4.5 cm above the alonso. Nasogastric tube courses below left hemidiaphragm. Right IJ line with tip in the SVC. Right PICC line with tip in the SVC. Cardiac silhouette is within normal limits and stable. Bilateral lower lobe airspace disease is again noted but may be mildly improved as compared with prior examination. No new consolidation, effusion, or pneumothorax. IMPRESSION: Continued lower lobe opacities appear improved. <Electronically signed by Israel Holguin > 09/23/20 0829
[2020-09-23] MEDS: ENOXAPARIN 150MG/ML SYRINGE (J1650 PER 10MG) SC SCH ×2 (09:09→21:19)
[2020-09-23] MEDS: dexameTHASONE 20MG/5ML VIAL (J1100 PER 1MG) IV SCH (09:10)
[2020-09-23] MEDS: PANTOPRAZOLE 40MG VIAL (C9113 PER 1) IV SCH ×2 (09:10→21:19)
[2020-09-23] MEDS: CHLORHEXIDINE GLUCONATE 0.12 % 15ML UDC (PERIDEX ORAL RINSE) MT SCH ×2 (09:10→21:18)
[2020-09-23] MEDS ORDERED: VANCOMYCIN HCL 1,000 MG, VIAL MATE ADAPTER 1 EACH in NS 250 ML IV SCH (09:45)
[2020-09-23 10:14] LABS: APPEARANCE, URINE CLEAR (CLEAR); BACTERIA, URINE AUTO NEGATIVE (NEGATIVE); BILIRUBIN, URINE AUTO NEGATIVE (NEGATIVE); BLOOD, URINE BLOOD NEGATIVE (NEGATIVE); COLOR, URINE YELLOW (YELLOW); GLUCOSE, URINE (UA) AUTO NEGATIVE (NEGATIVE); KETONE, URINE AUTO NEGATIVE (NEGATIVE); LEUKOCYTE ESTERASE, URINE AUTO NEGATIVE (NEGATIVE); MUCUS, URINE SMALL (NEGATIVE); NITRITE, URINE AUTO NEGATIVE (NEGATIVE); PROTEIN, URINE AUTO NEGATIVE (NEGATIVE); RBC, URINE AUTO 2 /HPF (0-3); SPECIFIC GRAVITY URINE AUTO 1.021 (1.002-1.035); SQUAMOUS EPITHELIAL CELL UR AU 0 /HPF (0-6); UROBILINOGEN, URINE AUTO 0.2 mg/dL (0.0-2.0); WBC, URINE AUTO 2 /HPF (0-3)
[2020-09-23] MEDS: MEROPENEM INJ 1 GM in IV 1 EA IV SCH ×2 (10:40→18:08)
[2020-09-23] MEDS: VANCOMYCIN HCL 1,000 MG, VIAL MATE ADAPTER 1 EACH in NS 250 ML IV SCH ×3 (11:39→23:39)
[2020-09-23] MEDS ORDERED: VANCOMYCIN HCL 1,000 MG, VIAL MATE ADAPTER 1 EACH in NS 250 ML IV ONE (12:00)
[2020-09-23] MEDS ORDERED: fentaNYL 100 MCG/2 ML INJECTION (J3010) IV PRN (12:20)
[2020-09-23 14:00] LABS: ABG BASE EXCESS 6.8 (-2.0-2.0); ABG HCO3 31.3 MEQ/L (22.0-26.0); ABG O2 SATURATION 94.4 % (95.0-99.0); ABG PARTIAL PRESSURE CO2 44.1 mmHg (35.0-45.0); ABG PARTIAL PRESSURE O2 70.2 mmHg (75.0-100.0); ABG STANDARD HCO3 30.6 MEQ/L (22.0-26.0); ABG TOTAL CO2 32.7 MEQ/L (22.0-29.0); ABG pH (ARTERIAL) 7.469 UNITS (7.350-7.450)
--- NOTE | 2020-09-23 22:20 | CCN ---
CRITICAL CARE NOTE DATE: 09/23/2020 SUBJECTIVE: Patient was seen and examined initially during bedside rounds. She was seen throughout the day as well for continued assessment. Overnight, patient was noted to have low grade temperature, but not quite a fever, with a maximum temperature (T-max) of 100.0. She has continued to do well with tolerating tube feeds and she has been having bowel movements, which are soft and not loose. She is also much more responsive and following commands, even on propofol at 30 mcg/kg/min. She is able to move all four extremities, wiggling her hands, toes and squeezing her hands as well as attempting to lift her head up slightly from the pillow. She denies any pain. She is indicating that she would like her endotracheal tube removed. PHYSICAL EXAMINATION: Maximum temperature (T-max) 100.0, current temperature 99.1, pulse 64, respirations 26, blood pressure 118/59, oxygen saturation 93% on 55% FiO2. INTAKE AND OUTPUT: In 3.3 liters, out 3.6 liters, net negative 1.3 liters. GENERAL: Patient is intubated and sedated on mechanical ventilation. With sedation, she is able to follow commands and move all four extremities appropriately. Patient is also able to lift her head up slightly from the pillow. HEENT: Normocephalic, atraumatic. There are moist mucous membranes noted. Neck supple. Trachea is midline. There is a right internal jugular (IJ) triple lumen in place. CARDIAC: Regular rate and rhythm. Normal S1, S2. Unable to appreciate murmurs. PULMONARY: Improved breath sounds bilaterally with some diminished breath sounds at the bases, but no significant wheezing or rhonchi. ABDOMEN: Obese, soft, nontender and non-distended. There is ecchymosis and bruising on the abdomen. There are laparoscopic incisions on the abdomen with one midline incision with a dressing in place. EXTREMITIES: There is no significant pitting edema in the bilateral lower extremities or upper extremities. LABORATORY STUDIES: Hemoglobin 12.6, platelets 253. Chemistry: Sodium 139, potassium 4.6, chloride 99, bicarbonate 38, BUN 24, creatinine 0.27, glucose 132. Arterial blood gas (ABG): pH 7.459, pCO2 47.1, pO2 37.6. IMAGING: Chest x-ray shows the endotracheal tube and the orogastric (OG) tube in position. There is a right internal jugular (IJ) triple lumen as well as a peripherally inserted central catheter (PICC) line. There is improvement in the previous diffuse bilateral interstitial alveolar opacities with some air space disease noted more in the lower lobes, particularly in the left lower lobe, with more linear atelectasis. This might be mildly improved as compared to the previous x-ray. ASSESSMENT AND PLAN: Ms. Kumari is a 50-year-old female with a past medical history of diabetes, asthma, obesity and obstructive sleep apnea (JAQUELINE) who presented initially with abdominal pain secondary to an incarcerated hernia. She was also found to be COVID-19 positive. Patient did require robotic-assisted hernia repair and a small bowel resection on 09/02/2020. Postoperatively, patient subsequently developed worsening hypoxemic respiratory failure and ultimately required intubation and mechanical ventilation on 09/15/2020. 1. Neurologic: Patient is intubated and sedated. She is on a propofol drip currently with a Fentanyl drip as well for analgesia. This morning with sedation, patient is much more responsive and is awake and following commands appropriately. She is able to move all four extremities including lifting her head slightly from the bed. a. Patient was continuing to wean down on sedation and appeared to do well with sedation weaning and with discontinuation of the Fentanyl. Her sedation was held for a weaning trial, which she tolerated well on the ventilator. 2. Cardiac: Patient has had episodes of atrial fibrillation with rapid ventricular response and previously had required episodes of synchronized cardioversion. She did receive amiodarone and had converted into sinus rhythm. She is currently rate controlled now with diltiazem by mouth. a. Will continue with diltiazem by mouth. If she is nothing by mouth (NPO), she may require intravenous (IV) medication for her rate control. b. Patient has a right internal jugular (IJ) central line in place, which we will remove today. We will keep her peripherally inserted central catheter (PICC) line in place for IV access. c. Patient did have continued diuresis with Lasix yesterday and is net negative. She does not appear to be overtly fluid overloaded at this time, although she does continue to notice improvement with weaning of her FiO2 with diuresis. Will hold off on further diuretics currently, but closely monitor her urine output. 3. Pulmonary: Patient with COVID-19 pneumonia and severe acute respiratory distress syndrome (ARDS) initially requiring mechanical ventilation. She was also thought to have superimposed bacterial pneumonia as well as pulmonary edema contributing to her hypoxia. a. Patient has continued improvement on imaging on her alveolar infiltrates as well as the lower lobe consolidations. We also have been able to wean down her vent requirements in terms of her PEEP and her FiO2. This morning, patient was placed on a pressure support weaning trial, which she tolerated well with no tachypnea and good tidal volumes. She was also able to maintain her oxygen saturations. We will therefore extubate patient to bilevel positive airway pressure (BiPAP) currently with settings of 16/12 and with an FiO2 of 55%. Will keep patient on BiPAP. Will check arterial blood gas (ABG) after extubation. If she tolerates, will attempt to give her brief breaks with the Vapotherm, although will likely trial her with the Vapotherm tomorrow. b. Will continue with weaning dexamethasone. She was changed to 4 mg IV daily. Will likely discontinue in the next day or two. c. Patient has had low grade temperature, although no fever. She was previously on vancomycin, which was discontinued a couple of days ago. Will restart the vancomycin and continue with the meropenem. Repeat blood cultures as well as a urinalysis (UA). 4. Renal: Patient has been receiving doses of Lasix IV for diuresis and has been having good urine output in response. She did have slight increase in her BUN, although that improved the other day and so she was given an additional IV Lasix and her BUN and creatinine have remained stable currently. She did have issues previously with hypokalemia, which has improved, so we will continue to monitor her electrolytes and replete as needed. a. Will continue with fingerstick glucose monitoring and will likely hold sliding scale coverage as she will be nothing by mouth (NPO) after extubation. 5. Gastrointestinal (GI): Patient was on tube feeds and had been tolerating that well with no residuals. She also had been having bowel movements. Once she is extubated on BiPAP, we will keep the patient NPO for now until she is able to tolerate brief breaks off of BiPAP with the Vapotherm. a. Continue with proton pump inhibitor (PPI) twice a day for now. Likely can continue this daily for prophylaxis. She was on PPI twice a day initially. She was having more coffee-ground emesis from her orogastric (OG) tube. 6. Hematology: Will continue patient on full dose Lovenox anticoagulation. She was started on anticoagulation initially with her atrial fibrillation as well as with her severe hypoxic respiratory failure with COVID-19 pneumonia. a. Hemoglobin and hematocrit (H and H) has been stable and she has no evidence of active bleeding. 7. CODE STATUS: Patient did have a medical orders for life-sustaining treatment (MOLST) filled out with her healthcare proxy, her Navjot akhtar. As stated, she was a DO NOT RESUSCITATE (DNR) with a trial of intubation. After she was extubated on BiPAP, patient was able to speak with the nurses and myself about her goals of care and she did make herself a DO NOT RESUSCITATE (DNR)/DO NOT INTUBATE (DNI), which we will also confirm again with her family as well. TOTAL CRITICAL CARE TIME NOT INCLUDING PROCEDURES: Approximately 55 minutes.
[2020-09-24] VITALS (22 sets, daily range): BP systolic 115–154; BP diastolic 58–72
[2020-09-24] MEDS: MEROPENEM INJ 1 GM in IV 1 EA IV SCH ×3 (02:38→17:38)
[2020-09-24] MEDS: VANCOMYCIN HCL 1,000 MG, VIAL MATE ADAPTER 1 EACH in NS 250 ML IV SCH (05:11)
[2020-09-24] MEDS: SODIUM CHLORIDE 0.9% INJ 10 ML SYR IV SCH ×2 (05:11→17:37)
[2020-09-24 05:31] LABS: BASO # 0.1 10^3/uL (0.0-0.2); BASO % 0.6 % (0.0-1.0); EOS % 0.2 % (0.0-3.0); HEMATOCRIT 39.2 % (36.0-47.0); HEMOGLOBIN 12.4 g/dl (12.0-15.5); LYMPH # 0.8 10^3/uL (1.5-5.0); LYMPH % 9.9 % (24.0-44.0); MEAN CORPUSCULAR HEMOGLOBIN 29.7 pg (27.0-33.0); MEAN CORPUSCULAR HGB CONC 31.6 g/dl (32.0-36.5); MONO # 0.4 10^3/uL (0.0-0.8); MONO % 4.9 % (2.0-8.0); NEUTROPHILS # 6.8 10^3/uL (1.5-8.5); NEUTROPHILS % 81.1 % (36.0-66.0); PLATELET COUNT, AUTOMATED 228 10^3/uL (150-450); RED BLOOD COUNT 4.17 10^6/uL (4.00-5.40); WHITE BLOOD COUNT 8.4 10^3/uL (4.0-10.0)
[2020-09-24 05:51] LABS: BLOOD UREA NITROGEN 25 MG/DL (7-18); CARBON DIOXIDE LEVEL 33 MEQ/L (21-32); CHLORIDE LEVEL 102 MEQ/L (98-107); CREATININE FOR GFR 0.34 MG/DL (0.55-1.30); GLOMERULAR FILTRATION RATE > 60.0 (>51); GLUCOSE, FASTING 96 MG/DL (70-100); SODIUM LEVEL 137 MEQ/L (136-145)
[2020-09-24] MEDS: HumaLOG INSULIN (NovoLOG) PER UNIT SC SCH ×4 (05:54→23:21)
[2020-09-24] MEDS: IPRATROPIUM 0.5MG/ALBUTEROL 2.5MG INH SOL UD 3ML (DUONEB) NEB SCH ×4 (08:00→19:56)
[2020-09-24] MEDS: PANTOPRAZOLE 40MG VIAL (C9113 PER 1) IV SCH ×2 (08:19→20:14)
[2020-09-24] MEDS: ENOXAPARIN 150MG/ML SYRINGE (J1650 PER 10MG) SC SCH ×2 (08:19→20:14)
[2020-09-24] MEDS: dexameTHASONE 20MG/5ML VIAL (J1100 PER 1MG) IV SCH (08:20)
[2020-09-24] MEDS: CHLORHEXIDINE GLUCONATE 0.12 % 15ML UDC (PERIDEX ORAL RINSE) MT SCH ×2 (08:20→20:14)
--- NOTE | 2020-09-24 12:24 | CCN ---
CRITICAL CARE NOTE DATE: 09/24/2020 The patient is seen in the intensive care unit on noninvasive ventilation. This is hospital day #23, intensive care unit (ICU) day #9. She was successfully weaned from mechanical ventilation yesterday and extubated. She continues on noninvasive positive pressure ventilation with marginal oxygen saturations. Temperature is 99.1, pulse rate 79, respirations 20, blood pressure 131/58. Intake and output for the past 24 hours 2110 in, 3250 out, since midnight 370 in, 900 out. At bedside she is ill appearing but awake and responsive to voice. Interacts with head nodding. Her neck is supple. Jugular veins are 1 cm above the sternal angle at 45 degrees. The heart sounds are regular. No appreciable ectopy. Monitoring showing sinus rhythm. Breath sounds diminished with some course crepitance in the bases. There is no dullness. Abdomen is soft. There are bowel sounds in the right lower quadrant. Extremities are cool. Pulses diminished but palpable. Sequential hose are in place. DIAGNOSTIC STUDIES: Her white cell count is down to 8.4. Differential white cell count shows 81% neutrophils. Hemoglobin is down slightly at 12.4, hematocrit 39.2, platelet count is 228. Electrolytes are sodium 137, potassium 4.0, chloride 102, CO2 of 33, BUN 25, creatinine 0.34, glucose 96, range 95-151. Chest imaging was reviewed and shows suggestion of persisting interstitial edema bilaterally. On microbiology review, she has had positive COVID test on September 01. Blood cultures have been negative times 8. On medications review, she is receiving: - Protonix 40 mg twice a day - Lovenox 120 mg every 12 - Nebulized therapy with albuterol and ipratropium four times a day. - sliding scale for insulin - meropenem 1 gram ever 8 hours - vancomycin renally dosed - dexamethasone 4 mg daily - Cardizem 90 mg four times a day. The primary problem requiring critical attention is acute hypoxic respiratory failure. She is responding, and we will attempt to reduce noninvasive positive pressure ventilating pressures. She will be allowed to be off the VapoTherm high-flow oxygen as tolerated. COVID pneumonia with acute respiratory distress syndrome (ARDS). Patient is responding to therapy. Will continue to slowly wean steroids. Hypercoagulable state secondary to COVID. She is on full-dose Lovenox. Infectious disease. Temperature was up and has come back down. Her white cell count is normal, and differential is less shifted. She has received 9 days of exposure to vancomycin, 7 days of exposure to meropenem. I will stop the vancomycin at this point. Atrial fibrillation. No further episodes in the last 24 hours. We will continue with Cardizem. Pulmonary edema. The patient is autodiuresing. We will follow intake and output and initiate Lasix as needed to maintain a negative fluid balance. Nutritional support. We will begin with sips and advance diet as she is able to tolerate. Deconditioning. I will arrange for a physical therapy evaluation . Obstructive sleep apnea syndrome. The patient has a history of sleep apnea and has been titrated to continuous positive airway pressure (CPAP) at home with a pressure of 8. We will continue using pressure therapy at night. Glycemic control is acceptable with sliding scale. We will continue to monitor this. Ulcer prophylaxis is in place, and we will continue this for the time being with Protonix. The patient's condition remains critical. ICU care is appropriate. I have reviewed the patient's status and care plans for the day with the ICU nursing team. Seventy-Seven minutes was spent in the provision of bedside critical care and coordination, exclusive of any time spent in the performance of procedures.
--- NOTE | 2020-09-24 17:36 | IPN ---
PROGRESS NOTE DATE: 09/24/2020 HISTORY: Patient is now 22 days postoperative from repair of a strangulated lower abdominal incisional hernia with bowel resection and repair of her hernia with mesh. Patient had been diagnosed with COVID-19 just prior to admission with her hernia. She tolerated the surgical procedure well, but her COVID infection then blossomed forth, and she has remained in the intensive care unit over the last 2 weeks or so. Yesterday she was extubated, having shown improving oxygenation over the last several days. Vital signs show that she had a maximum temperature of 99.9 at midnight. Her pulse is in the 60s to low 80s, and her blood pressure is good. She is currently on a bilevel positive airway pressure (BiPAP) with 65% oxygen. Intake and output show that yesterday she had 2100 in with 3200 out. PHYSICAL EXAMINATION: The patient is alert and responsive. She is able to move all extremities. Communication is difficult because of the difficulty of hearing her through her BiPAP mask. The abdomen is mildly obese. She has some bruising across the lower abdomen, presumably from injections of Lovenox. Her incisions are all healing very nicely, and the abdomen is otherwise soft and without significant tenderness. LABORATORY STUDIES: Show a white count of 8, hemoglobin 12, hematocrit 39, and a platelet count of 228,000. Chemistry profile shows normal electrolytes with a BUN of 25, creatinine 0.3, and a glucose of 96. IMPRESSION: Patient is doing very well from her surgery. Her COVID pneumonia has improved significantly over the last few days, and she was extubated to BiPAP yesterday. PLAN: At this point, I will stop following the patient for her abdominal surgery. If there are any concerns about her abdomen, then please contact me, and I will be happy to come back and see the patient again. KIMMY
[2020-09-24] MEDS: ACETAMINOPHEN 325 MG/10.15 ML UDC GT PRN (20:15)
[2020-09-25] VITALS (15 sets, daily range): BP systolic 108–169; BP diastolic 52–86
[2020-09-25] MEDS: MEROPENEM INJ 1 GM in IV 1 EA IV SCH ×2 (02:23→10:00)
[2020-09-25] MEDS: SODIUM CHLORIDE 0.9% INJ 10 ML SYR IV SCH ×2 (05:11→18:03)
[2020-09-25 05:41] LABS: BASO # 0.1 10^3/uL (0.0-0.2); BASO % 0.7 % (0.0-1.0); EOS # 0.1 10^3/uL (0.0-0.5); EOS % 1.4 % (0.0-3.0); HEMOGLOBIN 13.9 g/dl (12.0-15.5); LYMPH # 0.8 10^3/uL (1.5-5.0); LYMPH % 9.1 % (24.0-44.0); MEAN CORPUSCULAR HEMOGLOBIN 30.3 pg (27.0-33.0); MEAN CORPUSCULAR HGB CONC 32.3 g/dl (32.0-36.5); MEAN CORPUSCULAR VOLUME 93.7 fl (80.0-96.0); MONO # 0.3 10^3/uL (0.0-0.8); MONO % 3.7 % (2.0-8.0); NEUTROPHILS # 7.2 10^3/uL (1.5-8.5); NEUTROPHILS % 82.3 % (36.0-66.0); PLATELET COUNT, AUTOMATED 272 10^3/uL (150-450); RED BLOOD COUNT 4.59 10^6/uL (4.00-5.40); WHITE BLOOD COUNT 8.7 10^3/uL (4.0-10.0)
[2020-09-25 05:48] LABS: ALBUMIN 3.1 GM/DL (3.2-5.2); ALT/SGPT 71 U/L (12-78); BLOOD UREA NITROGEN 25 MG/DL (7-18); CALCIUM LEVEL 8.7 MG/DL (8.5-10.1); CARBON DIOXIDE LEVEL 30 MEQ/L (21-32); CHLORIDE LEVEL 104 MEQ/L (98-107); CHOLESTEROL LEVEL 314 MG/DL (< 200); CPK CREATINE PHOSPHOKINASE 51 U/L (26-192); CREATININE FOR GFR 0.34 MG/DL (0.55-1.30); GLOMERULAR FILTRATION RATE > 60.0 (>51); GLUCOSE, FASTING 90 MG/DL (70-100); LDH LACTATE DEHYDROGENASE 776 U/L (84-246); PHOSPHORUS LEVEL 2.9 MG/DL (2.5-4.9); POTASSIUM SERUM 3.7 MEQ/L (3.5-5.1); SODIUM LEVEL 141 MEQ/L (136-145); TOTAL PROTEIN 6.5 GM/DL (6.4-8.2); TRIGLYCERIDES LEVEL 374 MG/DL (<150)
[2020-09-25] MEDS: HumaLOG INSULIN (NovoLOG) PER UNIT SC SCH ×4 (05:54→21:00)
--- NOTE | 2020-09-25 07:24 | REP ---
INDICATION: ARDS COMPARISON: 09/23/2020 TECHNIQUE: Portable AP view of the chest FINDINGS: Right PICC line with tip in the SVC. Endotracheal tube and nasogastric tube have been removed. The mediastinum and cardiac silhouette are stable and within normal limits for portable technique. The lung nuñez again demonstrate subtle bilateral generalized interstitial and alveolar opacities essentially unchanged. No effusion. No pneumothorax. IMPRESSION: No significant change from prior examination. <Electronically signed by Israel Holguin > 09/25/20 [id number]
[2020-09-25] MEDS: IPRATROPIUM 0.5MG/ALBUTEROL 2.5MG INH SOL UD 3ML (DUONEB) NEB SCH ×4 (08:52→19:24)
[2020-09-25] MEDS: CHLORHEXIDINE GLUCONATE 0.12 % 15ML UDC (PERIDEX ORAL RINSE) MT SCH (09:00)
[2020-09-25] MEDS: ENOXAPARIN 150MG/ML SYRINGE (J1650 PER 10MG) SC SCH ×2 (09:16→20:47)
[2020-09-25] MEDS: PANTOPRAZOLE 40MG VIAL (C9113 PER 1) IV SCH (09:17)
[2020-09-25] MEDS: dexameTHASONE 20MG/5ML VIAL (J1100 PER 1MG) IV SCH (09:17)
[2020-09-25] MEDS: NORCO, ANEXSIA 5/325MG TABLET (HYDROcodone/ACETAMINOPHEN) PO PRN ×2 (11:59→20:52)
--- NOTE | 2020-09-25 12:53 | CCN ---
CRITICAL CARE NOTE DATE: 09/25/2020 The patient is seen in the intensive care unit. This is hospital day #24, intensive care unit (ICU) day #10. Over the past 24 hours she has been weaned from non-invasive positive pressure ventilation off to high-flow oxygen system, and with VapoTherm at high oxygen delivery her saturations are acceptable. Temperature is 99.5, maximum temperature for the past 24 hours 99.7, pulse rate 103, respirations 28, blood pressure 153/86, saturations are 93% on 90% oxygen via VapoTherm. Intake and output for the past 24 hours are 650 in 3200 mL out, since midnight 80 mL in, 500 mL out. She is ill appearing and quite weak. Her oral mucosae are pink. Neck is supple. I am unable to appreciate jugular veins at this time. Carotid upstroke is brisk. There is no bruit. Heart sounds are regular without appreciable murmur. Occasional ectopy. Breath sounds are diminished with some subtle basilar crepitance on inspiration. Abdomen is soft. There are intact bowel sounds. Extremities show profound muscle weakness. Pulses are easily palpable. There is no cyanosis. Diagnostic studies reviewed. Her white cell count is 8.7. Hemoglobin is up to 13.9, hematocrit 43.0. Platelet count is up at 272. Differential white cell count shows 82% neutrophils. Electrolytes were sodium 141, potassium 3.7, chloride 104, CO2 of 30, BUN 25, creatinine 0.34 and stable. Glucose is 90, range 90-150. The calcium is 8.7 on an albumin of 3.1. Phosphorus 2.9. Bilirubin 1. AST slightly elevated at 46. ALT is normal at 71. Alkaline phosphatase is 50. The LDH is up at 776. CPK 51. Chest imaging was reviewed. There are persistent bilateral hazy infiltrates. No new infiltrate or effusion. No consolidation. Tubes and lines are in good position. On medications review, she is receiving: - Protonix 40 mg twice a day - Lovenox 125 mg every 12 hours - DuoNeb four times a day. - sliding scale coverage with insulin - meropenem 1 gram every 8 hours - dexamethasone 40 mg a day - fentanyl 12.5 daily - Cardizem 90 mg four times a day. The primary problem requiring critical attention is acute hypoxic respiratory failure. The patient is tolerating VapoTherm at now 80% with adequate saturations. We will continue use of VapoTherm during the day as tolerated and rest her at night on non-invasive ventilation. COVID pneumonia with acute respiratory distress syndrome (ARDS). Patient has persistent bilateral interstitial infiltrates. We will therefore continue the dexamethasone. She is requiring oxygen and ventilation with potentially aerosolizing devices, and she will remain therefore on COVID-level isolation. Hypercoagulable state. Patient is on full-dose Lovenox. From an infectious disease standpoint, she has had low-grade temperatures, but they have not come up over 100 in the past 48 hours. This could be multifactorial. Vancomycin was discontinued yesterday, and today we will discontinue meropenem. There is no white count noted. We will continue close followup. Atrial fibrillation. Monitoring shows sinus rhythm at this point. We will continue with oral Cardizem, as she is tolerating the medication well. Pulmonary edema. The patient is autodiuresing. Her electrolytes are acceptable. We will continue to monitor her intake and output (I and O) closely. Nutritional support. The patient is beginning to take some oral nutritional support. We will encourage this. Deconditioning. The patient has been able to be up to bedside with physical therapy. We will continue engaging in movement as the patient is able. I anticipate a slow course of improvement given the duration of her critical illness. Obstructive sleep apnea syndrome. Will have the patient's family bring her unit from home to determine if we might be use this in place of the non-invasive ventilation that has been being used at night. Glycemic control is within acceptable parameters. We will continue monitoring and coverage. Ulcer prophylaxis. Will change to oral therapy. Pain control. Will change from intravenous (IV) to oral medications. The patient's condition remains critical. ICU care remains appropriate. She is making some progress, albeit slowly. I have reviewed the patient's current status and plans of care for the day with the ICU team. Sixty-seven minutes was spent in the provision of bedside critical care and coordination, exclusive of any procedure time.
[2020-09-25] MEDS: FAMOTIDINE 20 MG TAB PO SCH (20:48)
[2020-09-26] VITALS: BP 126/58
[2020-09-26 04:00] VITALS: BP 132/66
[2020-09-26 05:38] LABS: BASO # 0.1 10^3/uL (0.0-0.2); BASO % 0.5 % (0.0-1.0); EOS # 0.1 10^3/uL (0.0-0.5); EOS % 0.6 % (0.0-3.0); HEMATOCRIT 44.6 % (36.0-47.0); HEMOGLOBIN 14.3 g/dl (12.0-15.5); LYMPH # 0.7 10^3/uL (1.5-5.0); LYMPH % 6.8 % (24.0-44.0); MEAN CORPUSCULAR HEMOGLOBIN 30.4 pg (27.0-33.0); MEAN CORPUSCULAR HGB CONC 32.1 g/dl (32.0-36.5); MEAN CORPUSCULAR VOLUME 94.7 fl (80.0-96.0); MONO # 0.5 10^3/uL (0.0-0.8); MONO % 5.3 % (2.0-8.0); NEUTROPHILS # 8.4 10^3/uL (1.5-8.5); NEUTROPHILS % 85.2 % (36.0-66.0); PLATELET COUNT, AUTOMATED 271 10^3/uL (150-450); RED BLOOD COUNT 4.71 10^6/uL (4.00-5.40); WHITE BLOOD COUNT 9.8 10^3/uL (4.0-10.0)
[2020-09-26] MEDS: SODIUM CHLORIDE 0.9% INJ 10 ML SYR IV SCH ×2 (05:55→17:49)
[2020-09-26 06:09] LABS: ALBUMIN 3.2 GM/DL (3.2-5.2); ALT/SGPT 71 U/L (12-78); BLOOD UREA NITROGEN 30 MG/DL (7-18); CALCIUM LEVEL 9.1 MG/DL (8.5-10.1); CARBON DIOXIDE LEVEL 29 MEQ/L (21-32); CHLORIDE LEVEL 107 MEQ/L (98-107); CHOLESTEROL LEVEL 330 MG/DL (< 200); CPK CREATINE PHOSPHOKINASE 48 U/L (26-192); CREATININE FOR GFR 0.32 MG/DL (0.55-1.30); GLOMERULAR FILTRATION RATE > 60.0 (>51); GLUCOSE, FASTING 111 MG/DL (70-100); LDH LACTATE DEHYDROGENASE 786 U/L (84-246); PHOSPHORUS LEVEL 3.5 MG/DL (2.5-4.9); POTASSIUM SERUM 3.9 MEQ/L (3.5-5.1); SODIUM LEVEL 141 MEQ/L (136-145); TOTAL PROTEIN 6.7 GM/DL (6.4-8.2); TRIGLYCERIDES LEVEL 329 MG/DL (<150)
[2020-09-26 08:00] VITALS: BP 129/66
[2020-09-26] MEDS: HumaLOG INSULIN (NovoLOG) PER UNIT SC SCH ×4 (08:11→20:53)
[2020-09-26] MEDS: ENOXAPARIN 150MG/ML SYRINGE (J1650 PER 10MG) SC SCH ×2 (08:14→20:53)
[2020-09-26] MEDS: dexameTHASONE 20MG/5ML VIAL (J1100 PER 1MG) IV SCH (08:15)
[2020-09-26] MEDS: IPRATROPIUM 0.5MG/ALBUTEROL 2.5MG INH SOL UD 3ML (DUONEB) NEB SCH ×4 (08:33→20:05)
[2020-09-26] MEDS ORDERED: FUROSEMIDE 40MG/4ML VIAL (J1940) IV ONE (09:15)
[2020-09-26 12:00] VITALS: BP 130/79
--- NOTE | 2020-09-26 12:46 | IPNPDOC ---
Text Note Date of Service The patient was seen on 09/26/20. NOTE Subjective: Patient is a 50-year-old female with a PMHx of DM2, Asthma, Obesity who was initially admitted in the hospital on 09/01/2020 for an incisional incarcerated hernia. Patient was initially positive for COVID19 on 08/31/2020. Patient was admitted to the hospital service for further evaluation, treatment. General surgery was called on consultation and she has received surgical correction of her incarcerated hernia on 09/[address] [place]. Throughout the hospital course, patient's hypoxia had worsened as her COVID19 infection progressed. Patient received antiviral therapy, corticosteroid therapy, and anti- inflammatory therapy with Tocilizumab. Ultimately patient was intubated and given broad-spectrum antibiotics for suspected contaminant bacterial infection. Patient was initially intubated on 09/18 and was successfully extubated on 09/23. While patient was intubated, Hospitalist service had signed off. Was called by licensed direct entry midwife today to follow along as she has been extubated. Patient was seen and examined at the bedside. Patient denies any chest pain or palpitations. Reports that they deny any nausea, vomiting, abdominal pain, constipation or diarrhea. Reports regular bowel movements. Has a Palacios catheter in place. Reports that her breathing is doing relatively fine while on Vapotherm. Denies any significant expectoration of sputum. Physical exam: Vitals (See below) General: Patient is laying in bed, appears to be comfortable, not in any acute distress, is awake, alert, oriented to person, place and time HEENT: NC, AT CVS: +S1S2 Lungs: Poor inspiratory effort bilaterally without any evidence of wheezing, crackles or rhonchi Abdomen: Soft, nondistended and nontender Extremities: Lower extremities do not reveal any pitting edema Assessment/plan: Acute hypoxic respiratory failure - likely 2/2 multifactorial etiology; ARDS; COVID19 pneumonia; Bacterial pneumonia - Patient has been successfully extubated on 09/03; Patient is tolerating Vapotherm and uses noninvasive ventilation at bedtime - Has remained hemodynamically stable and afebrile - Inflammatory markers appear to have improved - Blood cultures 09/23: No growth at 48 hours - CTA 09/06: Suboptimal examination secondary to bolus timing for pulmonary embolism study. However no filling defect in the major pulmonary arteries. Bilateral diffuse ground-glass opacities. Findings consistent with patient's history of COVID-19 pneumonia. - s/p Remdesivir and Tocilizumab x 2 doses - s/p Meropenem / Vancomycin - c/w Dexamethasone / Lovenox therapeutic - c/w Incentive spirometry / Acapella Incarcerated incisional hernia - Patient denies any nausea, vomiting. Has been having regular bowel movements - CT abdomen / pelvis 09/12: Inferior anterior abdominal wall hernia contains inflamed fat, with moderately dilated small bowel leading into the hernia sac and a transition point identified consistent with small bowel obstruction. Incarceration and strangulation cannot be excluded. - s/p Surgical correction on 09/[address] Darvin Seo - c/w ISS Obstructive sleep apnea - c/w CPAP at night History of atrial fibrillation - c/w rate control with Diltiazem - c/w full anticoagulation with Lovenox GI Prophylaxis - s/p Protonix - c/w Famotidine DVT Prophylaxis: - c/w full dose anticoagulation with Lovenox Disposition: - Will continue to follow - Awaiting clinical improvement Luis LEWIS I+O VSLuis I+O Laboratory Tests 09/26/20 05:00 Vital Signs Date Time Temp Pulse Resp B/P (MAP) Pulse Ox O2 Delivery O2 Flow Rate FiO2 09/26/20 12:19 101 130/79 09/26/20 11:29 96 HVNI-Vapotherm 40.0 100 09/26/20 08:00 99.4 28 I&O- Last 24 Hours up to 6 AM 09/26/20 06:00 Intake Total 1310 ml Output Total 1250 ml Balance 60 ml CHRISTIANO CHAUHAN MD Sep 26, 2020 12:46
[2020-09-26 16:00] VITALS: BP 132/80
[2020-09-26 20:00] VITALS: BP 141/76
--- NOTE | 2020-09-26 20:05 | CCN ---
CRITICAL CARE NOTE DATE: 09/26/2020 SUBJECTIVE: The patient is seen in the intensive care unit with persistent hypoxemia requiring high flow oxygen. Time on noninvasive ventilation has been diminishing over the past 24 hours. This is hospital day 25, ICU day 11. At bedside, she remains ill appearing. Her temperature is 97.9. T-max over the past 24 hours 98. Pulse rate 90, respirations 24, blood pressure 129/66. She is requiring 100% oxygen via Vapotherm to achieve a saturation of 86%. Her input and output for the past 24 hours 1360 in, 1350 out. Since midnight 140 in, 350 out. She is ill appearing. Her mucosa is moist. Neck is supple. No meningismus. There is a dressing over the right internal jugular site, which is clean and dry. Heart sounds are regular, mild rapid, no appreciable murmur. Breath sounds diminished. Some coarse crepitans, auscultation is limited due to room noise from the high flow oxygen system. No other focal sounds are appreciated. Chest is symmetric. There is no accessory muscle use at rest. The abdomen is soft, obese with intact bowel sounds. There is no palpable mass. Extremities: Show no significant edema. Pulses are diminished, but palpable. Nails show no clubbing, cyanosis. Gait station unable to be tested. The patient was able to be stand at bedside briefly earlier today. DIAGNOSTIC STUDIES: Her white blood cell count is up slightly at 9.8, hemoglobin is better at 14.3, hematocrit 44.6, platelet count 271,000. Differential white cell count shows 85.2% neutrophils. Electrolytes are sodium 141, potassium 3.9, chloride 107, Co2 29, BUN is 30, creatinine 0.32, glucose 111, range of 111 to 169. Calcium is normal at 9.1, phosphorus is up at 3.5. The bilirubin is normal at 1. AST 34, ALT 71 and LDH slightly elevated at 786. Her albumin is up slightly at 3.2. Protein 6.7. Microbiology studies were reviewed. Her COVID test was positive on 09/01. Blood cultures have been negative on 8 occasions since that time. MEDICATION REVIEW: She is receiving Lovenox 125 mg q 12 hours, albuterol ipratropium nebulizer therapy q 6 hours, dexamethasone 4 mg daily, Cardizem 90 mg q.i.d., Pepcid 40 mg at h.s and sliding scale insulin. ASSESSMENT: The primary problems requiring critical attention is hypoxic respiratory failure. The patient's oxygen requirements remain quite high. I will check inflammatory markers and give her a dose of Lasix today based on the appearance of yesterday's x-ray. Will repeat a chest x-ray in the morning. COVID pneumonia with acute respiratory distress syndrome (ARDS). The patient remains on dexamethasone. Will continue with dexamethasone pending response to the Lasix and results from the inflammatory markers as noted above. Hypercoagulable state related to COVID infection. The patient was on low-dose Lovenox and will continue with this. There is no evidence of bleeding. Hemoglobin level is actually better. Infectious disease. The patient has been off antibiotics for 24 hours. Temperature is down and white cell count is normal. Will continue to monitor complete blood count (CBC) and differential. Atrial fibrillation. The patient had an echocardiogram on 09/15, which showed normal atrial size. I suspect that the episode of atrial fibrillation was related to other aspects of her acute illness. She is currently in sinus rhythm. Cardizem is felt to be helpful at this point and she is tolerating it and her blood pressure is acceptable. Will continue with the Cardizem. Protein calorie malnutrition. We are advancing her diet. Obstructive sleep apnea syndrome. The patient's family is brining her device. We may or may not be able to use her device due to her oxygen requirements, but perhaps we can use the mask interface. Past medical history of asthma. The patient is on nebulizer therapy q.i.d. Will continue with this at this point. I do not hear overt wheezing. Glycemic control is acceptable on sliding scale insulin. Deep venous thrombosis (DVT) prophylaxis will be addressed with the Lovenox. Ulcer prophylaxis is addressed with Pepcid. Deconditioning: Physical therapy has been engaged and she is making progress. I anticipate that she will require prolonged rehabilitation. I have updated the ICU nursing team on the care plans for the day. Her condition remains critical. I discussed the case with the hospitalist service, who had admitted her to the hospital originally and they have kindly agreed to reevaluate her today for her general medical needs and follow along. 62 minutes were spent on the provision bedside critical care and coordination, exclusive of any time spent on performance of procedures.
[2020-09-26] MEDS: FAMOTIDINE 20 MG TAB PO SCH (20:53)
[2020-09-26 23:15] LABS: INR 1.13; PARTIAL THROMBOPLASTIN TIME 35.3 SECONDS (24.2-38.5); PROTHROMBIN TIME 14.8 SECONDS (12.5-14.3)
[2020-09-27] VITALS (12 sets, daily range): BP systolic 121–174; BP diastolic 66–91
[2020-09-27 02:54] LABS: BASO % 0.4 % (0.0-1.0); EOS # 0.1 10^3/uL (0.0-0.5); EOS % 0.8 % (0.0-3.0); HEMATOCRIT 46.6 % (36.0-47.0); HEMOGLOBIN 15.2 g/dl (12.0-15.5); LYMPH # 0.8 10^3/uL (1.5-5.0); LYMPH % 7.8 % (24.0-44.0); MEAN CORPUSCULAR HEMOGLOBIN 30.6 pg (27.0-33.0); MEAN CORPUSCULAR HGB CONC 32.6 g/dl (32.0-36.5); MONO # 0.5 10^3/uL (0.0-0.8); MONO % 5.1 % (2.0-8.0); NEUTROPHILS # 8.9 10^3/uL (1.5-8.5); NEUTROPHILS % 84.4 % (36.0-66.0); PLATELET COUNT, AUTOMATED 292 10^3/uL (150-450); RED BLOOD COUNT 4.96 10^6/uL (4.00-5.40); WHITE BLOOD COUNT 10.6 10^3/uL (4.0-10.0)
[2020-09-27 03:29] LABS: ALBUMIN 3.4 GM/DL (3.2-5.2); ALT/SGPT 78 U/L (12-78); BILIRUBIN,TOTAL 1.1 MG/DL (0.2-1.0); BLOOD UREA NITROGEN 36 MG/DL (7-18); CALCIUM LEVEL 8.9 MG/DL (8.5-10.1); CARBON DIOXIDE LEVEL 29 MEQ/L (21-32); CHLORIDE LEVEL 106 MEQ/L (98-107); CHOLESTEROL LEVEL 315 MG/DL (< 200); CPK CREATINE PHOSPHOKINASE 42 U/L (26-192); CREATININE FOR GFR 0.33 MG/DL (0.55-1.30); FERRITIN 1060 NG/ML (8-252); GLOMERULAR FILTRATION RATE > 60.0 (>51); GLUCOSE, FASTING 113 MG/DL (70-100); LDH LACTATE DEHYDROGENASE 677 U/L (84-246); PHOSPHORUS LEVEL 3.8 MG/DL (2.5-4.9); POTASSIUM SERUM 3.9 MEQ/L (3.5-5.1); SODIUM LEVEL 141 MEQ/L (136-145); TOTAL PROTEIN 7.1 GM/DL (6.4-8.2); TRIGLYCERIDES LEVEL 327 MG/DL (<150)
[2020-09-27 03:30] LABS: APPEARANCE, URINE CLOUDY (CLEAR); BACTERIA, URINE AUTO NEGATIVE (NEGATIVE); BILIRUBIN, URINE AUTO NEGATIVE (NEGATIVE); BLOOD, URINE BLOOD 3+ (NEGATIVE); COLOR, URINE AMBER (YELLOW); GLUCOSE, URINE (UA) AUTO 1+ mg/dL (NEGATIVE); KETONE, URINE AUTO NEGATIVE (NEGATIVE); LEUKOCYTE ESTERASE, URINE AUTO NEGATIVE (NEGATIVE); NITRITE, URINE AUTO NEGATIVE (NEGATIVE); PROTEIN, URINE AUTO 2+ mg/dL (NEGATIVE); RBC, URINE AUTO TNTC /HPF (0-3); SPECIFIC GRAVITY URINE AUTO 1.033 (1.002-1.035); SQUAMOUS EPITHELIAL CELL UR AU 0 /HPF (0-6); UROBILINOGEN, URINE AUTO 0.2 mg/dL (0.0-2.0); WBC, URINE AUTO TNTC /HPF (0-3)
[2020-09-27 04:42] LABS: ERYTHROCYTE SEDIMENTATION RATE 6 mm/hr (0-30)
[2020-09-27] MEDS: SODIUM CHLORIDE 0.9% INJ 10 ML SYR IV SCH ×2 (06:07→17:54)
[2020-09-27] MEDS: IPRATROPIUM 0.5MG/ALBUTEROL 2.5MG INH SOL UD 3ML (DUONEB) NEB SCH ×4 (07:15→19:55)
[2020-09-27] MEDS: HumaLOG INSULIN (NovoLOG) PER UNIT SC SCH ×4 (08:40→20:18)
[2020-09-27] MEDS: dexameTHASONE 20MG/5ML VIAL (J1100 PER 1MG) IV SCH (08:48)
[2020-09-27] MEDS ORDERED: FUROSEMIDE 40MG/4ML VIAL (J1940) IV ONE (09:20)
[2020-09-27] MEDS: ENOXAPARIN 150MG/ML SYRINGE (J1650 PER 10MG) SC SCH (10:20)
--- NOTE | 2020-09-27 12:34 | CCN ---
CRITICAL CARE NOTE DATE: 09/27/2020 SUBJECTIVE: The patient is seen in the intensive care unit hypoxemic requiring high-flow oxygen and noninvasive ventilation at night. This is hospital day #26. OBJECTIVE: GENERAL: At bedside, she is ill-appearing, anxious, and tachypneic this morning. VITAL SIGNS: Temperature 98.4, T-max over the past 24 hours 99, pulse rate 103, respirations 32, blood pressure 127/84. INTAKE AND OUTPUT: For the past 24 hours 1265 in, 2275 out; since midnight 0 in and 260 out. HEENT: Her mucosa are moist. NECK: Supple. No meningismus. I am unable to appreciate jugular venous distention today. HEART: Regular without appreciable murmur. LUNGS: Her breath sounds are diminished with some crepitance. Auscultation is limited due to room noise from the high-flow oxygen system. There is no accessory muscle use at rest. ABDOMEN: Soft. There are bowel sounds in the right lower quadrant. EXTREMITIES: Cool. Muscle weakness is noted diffusely. PELVIC: Palacios catheter is in place and the urine is red in the Palacios bag. DIAGNOSTIC STUDIES: Reviewed. Her white cell count is up to 10.6, differential white cell count shows 84% neutrophils. Hemoglobin is up at 15.2, hematocrit is up at 46.6, platelet count is also up slightly at 292,000. Electrolytes are sodium 141, potassium 3.9, chloride 106, CO2 of 29. BUN is 36, creatinine 0.33, glucose 113, calcium is 8.9 on an albumin of 3.4, phosphorus 3.8, and ferritin is elevated at 1060. The bilirubin is 1.1. Liver enzymes are normal, AST of 29, ALT of 78. Her LDH is down slightly at 677. CPK 42. MEDICATIONS: On review, she is receivin. Lovenox 125 mg q. 12 hours. 2. DuoNeb q.i.d. 3. Dexamethasone 40 mg a day. 4. Cardizem 90 mg q.i.d. 5. Insulin coverage. LABORATORY DATA: On review of microbiology studies, there have been no new positive cultures. ASSESSMENT/PLAN: The primary problem requiring critical attention is hypoxic respiratory failure. I suspect that this is multifactorial. The patient continues to require high-flow oxygen at a high concentration. 1. Pulmonary edema. The patient did respond to Lasix without a significant change in renal indices. We will give an additional dose today and cautiously diurese her. 2. Anxiety. I suspect that this is complicating her respiratory status. We will cautiously administer anxiolytics with Xanax. 3. Post-COVID interstitial disease. The elevated inflammatory markers are of some concern. I will change to a protocol with methylprednisolone in place of the dexamethasone. 4. Hypercoagulability related to COVID infection. The patient remains on full dose Lovenox. Though her urine is red appearing. Hemoglobin and hematocrit (H&H) are better. 5. Hematuria. I suspect this is secondary to Palacios trauma. 6. Infectious disease. There is no clear source of infection. The patient has received numerous days of antibiotics. White cell count is up slightly and we will watch this closely. 7. Atrial fibrillation. The patient remains in sinus rhythm with Cardizem. 8. Protein-calorie malnutrition. We will encourage increased calorie intake. 9. Obstructive sleep apnea syndrome. The patient will be unable to use her home machine until her oxygen requirements are less. 10. Deep vein thrombosis (DVT) is being addressed with the Lovenox. 11. Ulcer prophylaxis being addressed with Pepcid. 12. Deconditioning. Physical therapy is engaged. The patient is making slow progress. The ICU nursing team was updated on the patient's status and care plans for the day. I have reviewed the case with the hospitalist service. CRITICAL CARE TIME: 62 minutes spent in the provision of bedside critical care and coordination, excluding any time for the performance of procedures.
--- NOTE | 2020-09-27 16:56 | IPNPDOC ---
Text Note Date of Service The patient was seen on 09/27/20. NOTE Subjective: Patient seen and examined at bedside today. Today is day 26 of hospital admission, day 12 in ICU. Tested positive for covid on 08/31/2020. Patient was intubated on 09/18/2020, extubated on 09/23/2020. Patient is very anxious, and is breathing through her mouth. And her respiratory rate is in the 30s. He denies having any chest pain, headache, abdominal pain. Patient was laying in bed on Vapotherm 30 liters/100% FiO2. And her saturations were in low 90s. She does have a Palacios in place likely put him when she was intubated and noticed bloody/dark-colored urine and the urinary bag and her UA did show WBC and RBC presence. Given her UA showed RBC will hold off on her Lovenox 125 mg every 12 hours for today. Start her on Xanax 0.25 mg every 6 hours when necess faheem. We'll get a repeat pro-Ray to rule out infection. Objective: Physical exam: Gen. appearance: Patient is alert oriented 3 on Vapotherm saturating in lower 90's, appears not in acute distress. CVS: Patient is tachycardic, regular rate and rhythm, S1 and S2 appreciated, no murmurs noted. Respiratory: Breath sounds are diminished bilaterally, mild crepitus/crackles noted on right lung. No other adventitious sounds appreciated. Abdomen: Soft to touch, no tenderness on palpation in all 4 quadrants, positive bowel sounds appreciated. Extremities: No pedal edema noted. As per patient she is working with PT to be out of bed to commode. Labs: WBC 10.6 mild elevation since yesterday, hemoglobin 15.2, hematocrit 46.6, platelets 292. Base metabolic panel normal, ESR 6, LDH 677 trending down, ferritin 1060 elevated. UA cloudy, TNTC WBC and RBC, urine culture pending. Pro-Ray negative, PT 14.8, APTT 35.3, d-dimer 3193. Serology: Blastomycosis/histoplasmosis/Beta 13D glucan-still pending. Blood cultures drawn on 09/23 were negative. Imaging: Chest x-ray done on 09/01/2020: Reported as: No acute cardiopulmonary processes appreciated. No focal consolidation or air space disease noted. CT abdomen/pelvis with IV contrast: 09/01/2020: Reported as: Inferior anterior abdominal wall hernia contains inflamed fat, with moderately dilated small bowel leading into the hernial sac and a transition point identified consistent with small bowel obstruction. Incarceration and strangulation cannot be excluded. CTA done on 09/06/2020: Reported as: Suboptimal examination secondary to bolus timing for pulmonary embolism study. However no filling defects in major pulmonary arteries. Bilateral diffuse groundglass opacities. Finding consistent with patient's history of covid 19 pneumonia. Chest x-ray done on 09/06/2020: Reported as: New diffuse bilateral infiltrates left greater than right. Chest x-ray done on 09/09/2020: Reported as: Similar but less focal and more diffuse lung opacities did Chest x-ray on 09/15/2020: Reported as: worsening bilateral infiltrates, now obscuring the hemidiaphragm bilaterally, suspected bilateral pleural effusions. Extensive alveolar edema/infiltrate back to progress since 09/09/2020. Chest x-ray done on 09/16/2020: Reported as: Extensive alveolar lung disease bilaterally and diffusely. Chest x-ray done on 09/17/2020: Reported as: Diffuse bilateral air space disease without significant change from prior examination. Echocardiogram done on 09/17/2020: Reported as: Normal left ventricular internal dimensions and wall thickening. Normal regional left ventricular wall motion. Hyperdynamic left ventricular systolic function. LVEF of 75% by visual estimate. LV diastolic function cannot be advocated due to mind in the setting of atrial fibrillation with rapid ventricle response. 2. Suggestive of moderate elevation of pulmonary artery systolic pressure the low 40s. Normal right ventricle size and systolic function. Appears mild right ventricle hypertrophy. Atrium appears normal in size. No vegetations. No pericardial effusion. Mild IVC Lipitor are suggestive of elevated central venous pressure at least 20 mmHg. Chest x-ray done on 09/18/2020: Reported as: No radiographic changes in the lung field, diffuse alveolar edema pattern. Chest x-ray done on 09/19/2020: Reported as: Extensive alveolar opacity/pulmonary edema pattern persistent. Some improvement noted since 09/17/2020. Chest x-ray done on 09/20/2020: Reported as: Lung nuñez showed gradual improvement. Chest x-ray done on 09/21/2020: Reported as: Lower lobe opacities similar to prior examination. Chest x-ray done on 09/22/2020: Reported as: Perihilar and lower lobe opacities similar to prior examination. Chest x-ray done on 09/23/2020: Reported as: Continued lower lobe opacities appear improved. Chest x-ray done on 09/25/2020: Reported as: No significant change from prior examination. Assessment: 50-year-old female who initially presented to ED with bowel obstruction had bowel resection surgery on 09/02/2020, covid positive on 08/31/2020, was asymptomatic for covid for couple of days after the surgery later started having covid symptoms with shortness of breath. She Was initially on nasal cannula transition to Vapotherm and later to BiPAP. She was intubated eventually due to hypoxia and hypoxemia. She was intubated on 09/18 and was extubated on 09/23. During that period of intubation she was taken care of by compliance advisor. Patient is still on Vapotherm and BiPAP after the extubation and was transferred back to medical team for further management. Plan: Hypoxic respiratory failure 2/2 ARDS covid infection: Status post remedisvir, tocilizumab[3 doses], meropenem 10 days, vancomycin 8 d ays. -Patient was extubated on 09/23 he continues to be on Vapotherm and BiPAP. - High inflammatory markers ferritin was elevated, and mild elevation in white count. - Repeat pro-Ray was done that was negative. - Patient was given a dose of Lasix yesterday and her renal function improved. - She is also scheduled to get another dose of furosemide today. - Patient was on dexamethasone until yesterday, today was switched to a methylprednisolone due to elevated inflammatory markers. - Encourage patient to use incentive spirometry/ Acapella. Hematuria: - Patient has blood in the urine most likely secondary to Palacios trauma. - Will hold her Lovenox 125 mg Q12H for today. - UA was cloudy and has WBC as well, urine culture pending. Anxiety: - Patient is having anxiety episodes a month and breathing shallow to harm increasing her respiratory rate to 30s to 40s. - She denies having any pain on deep breaths. - Will start her on Xanax 0.25 mg every 6 hours. Covid pneumonia: - Will continue methylprednisolone. - Will hold Lovenox 125 mg every 12 hours for today. Obstructive sleep apnea: - Continue to CPAP at night. Physical deconditioning: - Today is day 26 of hospitalization, ICU day 12. Patient was intubated for 6 days. - Patient is tolerating oral intake. - Physical therapy is working with her. Atrial fibrillation: - Patient was in atrial fibrillation during the intubation and prior to that. - Her rate is well controlled with diltiazem will continue that. - Right now patient is in sinus rhythm. - Will continue anticoagulation with Lovenox [Will hold Lovenox for today due to hematuria] Incarcerated incisional hernia. - Status post surgery on 09/02/2020. - Denies having any nausea, vomiting able to tolerate oral intake and is having regular bowel movements. GI prophylaxis: Will continue famotidine. DVT prophylaxis: - Please hold Lovenox for today due to hematuria. Disposition: Pending clinical improvement. VS,Fishbone, I+O VS, Fishbone, I+O Laboratory Tests 09/27/20 02:14 Vital Signs Date Time Temp Pulse Resp B/P (MAP) Pulse Ox O2 Delivery O2 Flow Rate FiO2 09/27/20 14:00 119 28 132/82 (99) 99 HVNI-Vapotherm 30.0 90 09/27/20 12:00 97.6 I&O- Last 24 Hours up to 6 AM 09/27/20 06:00 Intake Total 1265 ml Output Total 2385 ml Balance -1120 ml GME ATTESTATION GME ATTESTATION My faculty preceptor for this patient encounter was physically present during the encounter and was fully available. All aspects of the patient interview, examination, medical decision making process, and medical care plan development were reviewed and approved by the faculty preceptor. The faculty preceptor is aware and concurs with the plan as stated in the body of this note and will attest to such by his/her cosignature. ATTENDING NOTE I, Cecil Apodaca MD, have independently examined this patient and performed my own physical exam, as well as reviewed the documentation and edited where necessary. I have discussed in detail with the resident / student the findings and plan of treatment as documented by the resident / student and edited their note. I agree with their findings and treatment plan and have edited their d ocumentation. Teri Martinez MD Sep 27, 2020 16:55 CECIL APODACA MD October 05, 2020 12:24
[2020-09-27] MEDS: ALPRAZolam 0.25 MG TAB PO PRN (17:09)
[2020-09-27] MEDS: FAMOTIDINE 20 MG TAB PO SCH (20:16)
[2020-09-28] VITALS: BP 144/82
[2020-09-28 04:00] VITALS: BP 144/85
[2020-09-28] MEDS: NORCO, ANEXSIA 5/325MG TABLET (HYDROcodone/ACETAMINOPHEN) PO PRN ×3 (04:43→19:45)
[2020-09-28] MEDS: SODIUM CHLORIDE 0.9% INJ 10 ML SYR IV SCH ×2 (05:32→17:12)
[2020-09-28 06:04] LABS: BASO % 0.2 % (0.0-1.0); HEMATOCRIT 48.2 % (36.0-47.0); HEMOGLOBIN 15.7 g/dl (12.0-15.5); LYMPH # 0.7 10^3/uL (1.5-5.0); LYMPH % 5.4 % (24.0-44.0); MEAN CORPUSCULAR HEMOGLOBIN 30.3 pg (27.0-33.0); MEAN CORPUSCULAR HGB CONC 32.6 g/dl (32.0-36.5); MEAN CORPUSCULAR VOLUME 92.9 fl (80.0-96.0); MONO # 0.8 10^3/uL (0.0-0.8); MONO % 5.9 % (2.0-8.0); NEUTROPHILS # 11.3 10^3/uL (1.5-8.5); NEUTROPHILS % 87.3 % (36.0-66.0); PLATELET COUNT, AUTOMATED 310 10^3/uL (150-450); RED BLOOD COUNT 5.19 10^6/uL (4.00-5.40); WHITE BLOOD COUNT 12.9 10^3/uL (4.0-10.0)
[2020-09-28 06:23] LABS: ALBUMIN 3.5 GM/DL (3.2-5.2); ALT/SGPT 85 U/L (12-78); BILIRUBIN,TOTAL 1.2 MG/DL (0.2-1.0); BLOOD UREA NITROGEN 44 MG/DL (7-18); CALCIUM LEVEL 9.5 MG/DL (8.5-10.1); CARBON DIOXIDE LEVEL 29 MEQ/L (21-32); CHLORIDE LEVEL 105 MEQ/L (98-107); CHOLESTEROL LEVEL 333 MG/DL (< 200); CPK CREATINE PHOSPHOKINASE 25 U/L (26-192); CREATININE FOR GFR 0.43 MG/DL (0.55-1.30); GLOMERULAR FILTRATION RATE > 60.0 (>51); GLUCOSE, FASTING 116 MG/DL (70-100); LDH LACTATE DEHYDROGENASE 581 U/L (84-246); POTASSIUM SERUM 3.4 MEQ/L (3.5-5.1); SODIUM LEVEL 140 MEQ/L (136-145); TOTAL PROTEIN 7.5 GM/DL (6.4-8.2); TRIGLYCERIDES LEVEL 318 MG/DL (<150)
[2020-09-28] MEDS ORDERED: POTASSIUM CHLORIDE 10 MEQ SR TABLET PO ONE (07:30)
[2020-09-28] MEDS: IPRATROPIUM 0.5MG/ALBUTEROL 2.5MG INH SOL UD 3ML (DUONEB) NEB SCH ×4 (07:59→19:25)
[2020-09-28 08:00] VITALS: BP 145/93
--- NOTE | 2020-09-28 08:23 | REP ---
INDICATION: interstitial disease post COVID. COMPARISON: Comparison chest x-ray September 25, 2020. TECHNIQUE: Portable upright AP chest radiograph. FINDINGS: Bilateral interstitial lung disease persists left perihilar and right base regions most prominently affected. There are air bronchograms on the left. Heart is not enlarged. Right-sided PICC line is seen in place. Monitoring electrodes are noted. Findings are similar to the prior study.. IMPRESSION: Bilateral interstitial infiltrates left perihilar region and right base, persist. Findings similar to the September 25, 2020 study.. <Electronically signed by Barney Rosado > 09/28/20 0819
[2020-09-28] MEDS: ALPRAZolam 0.25 MG TAB PO PRN ×2 (08:31→19:44)
[2020-09-28] MEDS: HumaLOG INSULIN (NovoLOG) PER UNIT SC SCH ×4 (08:36→21:00)
--- NOTE | 2020-09-28 09:46 | IPNPDOC ---
Text Note Date of Service The patient was seen on 09/28/20. NOTE Subjective: Patient seen and examined at bedside today. Today is day 27 of her hospital admission, day 13 in ICU, tested positive for covid19 on 08/31/2020. Patient was intubated on 09/18/2020, extubated on 09/23/2020. Patient was tearful when I was in the room as it is taking long time for her recovery. Patient is tachycardic and she is mouth breathing because of her anxiety, she is maxed on Vapotherm 40/100% FiO2 saturating and lower 90s. She is getting Xanax 0.25 mg for her anxiety. She denies having any chest pain, abdominal pain, headache. Is still continues to have dark color urine. Palacios in place. Objective: Physical exam: Gen. appearance: Patient is alert and oriented 3 on Vapotherm, patient is anxious, shallow breathing, denies having any pain on deep breathing. Cardiac: Patient is tachycardic heart rate of 110 to 120s, regular rate and rhythm, S1 and S2 appreciated, no murmurs. Respiratory: Very poor inspiratory effort, diminished breath sounds bilaterally in the bases, and difficult to appreciate any adventitious sound due to surrounding noise. Abdomen: No tenderness on palpation in all 4 quadrants, positive bowel sounds appreciated. Extremities: No pedal edema noted. Labs: WBC 12.9 [elevated since yesterday], hemoglobin 15.7, HCT 48.2, platelet 310. BMP 3.4 [replaced with oral potassium], BUN 44 elevated., LDH trending down 581. Urine culture still pending. Pro-calcitonin negative. Serology: Blastomyces antibody negative, negative for aspergillosis, negative Beta 1,3 D- Glucan. Histoplasma antibody still pending. Imaging: Chest x-ray done on 09/01/2020: Reported as: No acute cardiopulmonary processes appreciated. No focal consolidation or air space disease noted. CT abdomen/pelvis with IV contrast: 09/01/2020: Reported as: Inferior anterior abdominal wall hernia contains inflamed fat, with moderately dilated small bowel leading into the hernial sac and a transition point identified consistent with small bowel obstruction. Incarceration and strangulation cannot be excluded. CTA done on 09/06/2020: Reported as: Suboptimal examination secondary to bolus jefry ing for pulmonary embolism study. However no filling defects in major pulmonary arteries. Bilateral diffuse groundglass opacities. Finding consistent with patient's history of covid 19 pneumonia. Chest x-ray done on 09/06/2020: Reported as: New diffuse bilateral infiltrates l eft greater than right. Chest x-ray done on 09/09/2020: Reported as: Similar but less focal and more diffuse lung opacities did Chest x-ray on 09/15/2020: Reported as: worsening bilateral infiltrates, now obscuring the hemidiaphragm bilaterally, suspected bilateral pleural effusions. Extensive alveolar edema/infiltrate back to progress since 09/09/2020. Chest x-ray done on 09/16/2020: Reported as: Extensive alveolar lung disease bilaterally and diffusely. Chest x-ray done on 09/17/2020: Reported as: Diffuse bilateral air space disease without significant change from prior examination. Echocardiogram done on 09/17/2020: Reported as: Normal left ventricular internal dimensions and wall thickening. Normal regional left ventricular wall motion. Hyperdynamic left ventricular systolic function. LVEF of 75% by visual estimate. LV diastolic function cannot be advocated due to mind in the setting of atrial fibrillation with rapid ventricle response. 2. Suggestive of moderate elevation of pulmonary artery systolic pressure the low 40s. Normal right ventricle size and systolic function. Appears mild right ventricle hypertrophy. Atrium appears normal in size. No vegetations. No pericardial effusion. Mild IVC Lipitor are suggestive of elevated central venous pressure at least 20 mmHg. Chest x-ray done on 09/18/2020: Reported as: No radiographic changes in the lung field, diffuse alveolar edema pattern. Chest x-ray done on 09/19/2020: Reported as: Extensive alveolar opacity/pulmonary edema pattern persistent. Some improvement noted since 09/17/2020. Chest x-ray done on 09/20/2020: Reported as: Lung nuñez showed gradual improvement. Chest x-ray done on 09/21/2020: Reported as: Lower lobe opacities similar to prior examination. Chest x-ray done on 09/22/2020: Reported as: Perihilar and lower lobe opacities similar to prior examination. Chest x-ray done on 09/23/2020: Reported as: Continued lower lobe opacities appear improved. Chest x-ray done on 09/25/2020: Reported as: No significant change from prior examination. Chest x-ray done on 09/28/2020: Reported as: Bilateral interstitial infiltrates left perihilar region and right base, persistent findings similar to September 25 Assessment: 50-year-old female who initially presented to ED with bowel obstruction had ann wel resection surgery on 09/02/2020, covid positive on 08/31/2020, was asymptomatic for covid for couple of days after the surgery later started having covid symptoms with shortness of breath. She Was initially on nasal cannula transition to Vapotherm and later to BiPAP. She was intubated eventually due to hypoxia and hypoxemia. She was intubated on 09/18 and was extubated on 09/23. During that period of intubation she was taken care of by development manager. Patient is still on Vapotherm and BiPAP after the extubation and was transferred back to medical team for further management. Plan: Hypoxic respiratory failure likely multifactorial 2/2 ARDS covid infection vs pulmonary artery hypertension vs suspected PE: Status post remedisvir, tocilizumab[3 doses], meropenem 10 days, vancomycin 8 days. - Patient was extubated on 09/23 he continues to be on Vapotherm and BiPAP. - elevation of white count since yesterday - Repeat pro-Ray was done that was negative. - Patient was given a dose of Lasix yesterday and her renal function improved. - She is also scheduled to get another dose of furosemide today. - Patient was switched to methylprednisolone will continue methylprednisolone. - Encourage patient to use incentive spirometry/ Acapella. Hematuria: - Patient has blood in the urine most likely secondary to Palacios trauma. - Will hold her Lovenox 125 mg Q12H for today. - UA was cloudy and has WBC as well, urine culture pending. - Plan is to hold Lovenox for 48 hours prior to restarting it again at a lower dose. Anxiety: - Patient is having anxiety episodes a month and breathing shallow to harm increasing her respiratory rate to 30s to 40s. - She denies having any pain on deep breathing. - Will start her on Xanax 0.25 mg every 6 hours. Covid pneumonia: - Will continue methylprednisolone. - Will hold Lovenox 125 mg every 12 hours for today. Obstructive sleep apnea: - Continue to CPAP at night. Physical deconditioning: - Today is day 27 of hospitalization, ICU day 13. Patient was intubated for 6 days. - Patient is tolerating oral intake. - Physical therapy is working with her. Atrial fibrillation: - Patient was in atrial fibrillation during the intubation and prior to that. - Her rate is well controlled with diltiazem will continue that. - Right now patient is in sinus rhythm. - Will continue anticoagulation with Lovenox [Will hold Lovenox for today due to hematuria] Incarcerated incisional hernia. - Status post surgery on 09/02/2020. - Denies having any nausea, vomiting able to tolerate oral intake and is having regular bowel movements. GI prophylaxis: Will continue famotidine. DVT prophylaxis: - Please hold Lovenox due to hematuria. - Teds and sequentials. Disposition: Pending clinical improvement. VS,Fishbone, I+O VS, Fishbone, I+O Laboratory Tests 09/28/20 05:34 Vital Signs Date Time Temp Pulse Resp B/P (MAP) Pulse Ox O2 Delivery O2 Flow Rate FiO2 09/28/20 08:31 119 145/93 09/28/20 08:00 97.1 46 90 HVNI-Vapotherm 40.0 100 I&O- Last 24 Hours up to 6 AM 09/28/20 06:00 Intake Total 670 ml Output Total 1765 ml Balance -1095 ml GME ATTESTATION GME ATTESTATION My faculty preceptor for this patient encounter was physically present during the encounter and was fully available. All aspects of the patient interview, exa mination, medical decision making process, and medical care plan development were reviewed and approved by the faculty preceptor. The faculty preceptor is aware and concurs with the plan as stated in the body of this note and will attest to such by his/her cosignature. ATTENDING NOTE I, Cecil Apodaca MD, have independently examined this patient and performed my own physical exam, as well as reviewed the documentation and edited where necessary. I have discussed in detail with the resident / student the findings and plan of treatment as documented by the resident / student and edited their note. I agree with their findings and treatment plan and have edited their documentation. Teri Martinez MD Sep 28, 2020 09:46 CECIL APODACA MD October 05, 2020 12:30
[2020-09-28] MEDS ORDERED: FUROSEMIDE 40MG/4ML VIAL (J1940) IV ONE (10:30)
[2020-09-28 11:49] VITALS: BP 137/75
[2020-09-28 12:08] LABS: ASPERGILLUS FLAVUS ABY Negative (Neg:<1:1); ASPERGILLUS FUMIGATUS ABY Negative (Neg:<1:1); ASPERGILLUS NIGER ABY Negative (Neg:<1:1); BLASTOMYCES ABY Negative (Neg:<1:1); CALCITONIN <2.0 pg/mL (0.0-5.0); FUNGITELL, SERUM <31 pg/mL (<80)
--- NOTE | 2020-09-28 13:37 | CCN ---
CRITICAL CARE NOTE DATE: 09/28/2020 SUBJECTIVE: Patient is seen in the Intensive Care Unit profoundly hypoxemic. This is hospital day #27. She remains on bi-level pressure therapy for noninvasive ventilation in the night and Vapotherm in the day. PHYSICAL EXAMINATION: VITAL SIGNS: At bedside, temperature 96.2, T-max for the past 24 hours 98, pulse rate 119, respirations 28, blood pressure 145/93, oxygen saturation 94% on 100% Vapotherm. INPUT/OUTPUT: For the past 24 hours, 470 in and 1785 out. Since midnight 200 in and 270 out. GENERAL: She is ill appearing. Oral mucosa is pink. HEENT: Neck is supple, no meningismus. Jugular veins are not able to be appreciated. HEART: Sounds are regular. LUNGS: Breath sounds diminished with some crepitant rales in the bases. Less accessory muscle use today. ABDOMEN: Soft with intact bowel sounds. EXTREMITIES: Poor muscle tone. DIAGNOSTIC STUDIES: White cell count up slightly at 12.9. Differential white cell count shows 87% neutrophils. Hemoglobin up to 15.7, hematocrit 48.2, platelet count up to 310,000. Electrolytes: Sodium 140, potassium down to 3.4, chloride 105, CO2 29, BUN 44, creatinine 0.43, glucose 116. Calcium 9.5. Phosphorus 4. Total bilirubin 1.2. AST 26, ALT 85. LDH down to 581. Albumin 3.5. IMAGING STUDIES: I have reviewed imaging studies. Her chest x-ray looks better to me; formal report is pending. There is better aeration of the right lower lobe. MEDICATIONS: On medications review, this is day #2 of Medrol 16 mg a day. She is receiving Xanax 0.25 mg every 6 hours p.r.n., Pepcid 40 mg q.h.s., [place] as needed for pain, Diltiazem 90 mg q.i.d., DuoNeb, Lovenox. MICROBIOLOGY REVIEW: Urine culture showed no bacteria. Eight blood cultures have been negative. Her COVID test was positive on 09/01/2020. ASSESSMENT: 1. The primary problem requiring critical attention is hypoxemia: This is multifactorial. 2. Pulmonary edema: The patient has been slowly diuresing. We will add an additional dose of Lasix today. 3. Post COVID interstitial lung disease: Patient was changed to the more long-acting glucocorticoid Medrol yesterday. Her LDH is down. I will recheck a ferritin tomorrow. 4. Anxiety: Nursing is encouraging the patient to use Xanax, which appears to be effective at curbing her anxiety. 5. Hypercoagulability related to COVID infection: Patient is on full dose Lovenox. 6. Atrial fibrillation: No recent episodes. Apparently controlled with Cardizem. 7. Protein calorie malnutrition: The patient's oral intake is improving. 8. Obstructive sleep apnea syndrome: Patient will eventually be converted to CPAP, for now will continue with nightly use of BiPAP. 9. DVT prophylaxis: Being addressed with the Lovenox, sequential hose. 10.Ulcer prophylaxis: Being addressed with Pepcid. 11.Deconditioning: Physical therapy is engaged in the patient's care. Patient's condition remains critical. Prognosis is guarded. I have updated the nursing team regarding the patient's status and care plan for the day. CRITICAL CARE TIME: 67 minutes was spent in the provision of bedside critical care and coordination, exclusive of any time spent in the performance of procedures.
[2020-09-28 17:06] VITALS: BP 140/76
[2020-09-28] MEDS: FAMOTIDINE 20 MG TAB PO SCH (19:44)
[2020-09-28 20:00] VITALS: BP 115/71
[2020-09-29] VITALS: BP 139/91
[2020-09-29 04:00] VITALS: BP 148/88
[2020-09-29] MEDS: ALPRAZolam 0.25 MG TAB PO PRN (04:15)
[2020-09-29] MEDS ORDERED: ALPRAZolam 0.25 MG TAB As Ordered ONE (04:23)
[2020-09-29 05:17] LABS: BASO # 0.1 10^3/uL (0.0-0.2); BASO % 0.4 % (0.0-1.0); EOS % 0.2 % (0.0-3.0); HEMATOCRIT 49.3 % (36.0-47.0); HEMOGLOBIN 16.1 g/dl (12.0-15.5); LYMPH # 0.9 10^3/uL (1.5-5.0); LYMPH % 6.7 % (24.0-44.0); MEAN CORPUSCULAR HEMOGLOBIN 30.4 pg (27.0-33.0); MEAN CORPUSCULAR HGB CONC 32.7 g/dl (32.0-36.5); MEAN CORPUSCULAR VOLUME 93.2 fl (80.0-96.0); MONO # 0.7 10^3/uL (0.0-0.8); MONO % 5.1 % (2.0-8.0); NEUTROPHILS # 11.6 10^3/uL (1.5-8.5); NEUTROPHILS % 86.4 % (36.0-66.0); PLATELET COUNT, AUTOMATED 291 10^3/uL (150-450); RED BLOOD COUNT 5.29 10^6/uL (4.00-5.40); WHITE BLOOD COUNT 13.4 10^3/uL (4.0-10.0)
[2020-09-29 05:49] LABS: BLOOD UREA NITROGEN 52 MG/DL (7-18); CALCIUM LEVEL 9.6 MG/DL (8.5-10.1); CARBON DIOXIDE LEVEL 27 MEQ/L (21-32); CHLORIDE LEVEL 103 MEQ/L (98-107); CREATININE FOR GFR 0.42 MG/DL (0.55-1.30); FERRITIN 856 NG/ML (8-252); GLOMERULAR FILTRATION RATE > 60.0 (>51); GLUCOSE, FASTING 129 MG/DL (70-100); POTASSIUM SERUM 3.8 MEQ/L (3.5-5.1); SODIUM LEVEL 138 MEQ/L (136-145)
[2020-09-29] MEDS: SODIUM CHLORIDE 0.9% INJ 10 ML SYR IV SCH ×2 (05:57→17:01)
[2020-09-29] MEDS: IPRATROPIUM 0.5MG/ALBUTEROL 2.5MG INH SOL UD 3ML (DUONEB) NEB SCH ×4 (07:56→19:35)
[2020-09-29 08:13] VITALS: BP 143/91
[2020-09-29] MEDS: HumaLOG INSULIN (NovoLOG) PER UNIT SC SCH ×4 (08:22→20:29)
[2020-09-29] MEDS ORDERED: ALPRAZolam 0.5 MG TAB PO PRN (08:30)
[2020-09-29 08:39] LABS: INR 1.03; PROTHROMBIN TIME 13.7 SECONDS (12.5-14.3)
[2020-09-29 08:48] LABS: PARTIAL THROMBOPLASTIN TIME 25.5 SECONDS (24.2-38.5)
[2020-09-29] MEDS: ENOXAPARIN 60MG/0.6ML SYRINGE (J1650 PER 10MG) SC SCH ×2 (09:41→20:27)
--- NOTE | 2020-09-29 09:43 | CCN ---
CRITICAL CARE NOTE DATE: 09/29/2020 SUBJECTIVE: The patient is seen in the intensive care unit hypoxemic. This is hospital day #28. She is very anxious and struggles with the use of oxygen delivery devices. OBJECTIVE: VITAL SIGNS: Her temperature is 96.8. T-max for the past 24 hours 98.6. Pulse rate 102, respirations 21, blood pressure 148/88. Oxygen saturation 95% on 80% FiO2. INTAKE AND OUTPUT: For the past 24 hours, 1850 in and 1490 out; since midnight, 60 and 125 out. Her weight, however, is down to 107.8 kg. GENERAL: She is ill-appearing. HEENT: Oral mucosa is pink. NECK: Supple. No meningismus. No obvious jugular venous distention. HEART: Sounds irregular. LUNGS: Breath sounds diminished. There is some accessory muscle use with respiratory effort. There is some coarse crepitants in the bases. ABDOMEN: Soft and obese. EXTREMITIES: Weak. Pulses are palpable. DIAGNOSTIC STUDIES: Her white cell count is up at 13.4, differential white cell count shows 86.4% neutrophils, hemoglobin of 16, hematocrit 49, platelet count 291,000. Electrolytes are sodium 138, potassium 3.8, chloride 103, CO2 of 27, BUN 52, creatinine 0.42, glucose 129. The ferritin is down to 856. MEDICATIONS: On review, she is receiving DuoNeb q.i.d. p.r.n., methylprednisolone 60 mg daily, diltiazem 90 mg q.i.d., Xanax 0.25 mg q. 6 p.r.n. ASSESSMENT AND PLAN: 1. The primary problem requiring critical attention is hypoxemia. The patient is requiring slightly less oxygen at rest. Her saturations are acceptable on 80% FiO2 via Vapotherm. 2. Post-COVID interstitial lung disease. We are treating this with Medrol. Her inflammatory markers are trending in the right direction and I will continue to follow these. 3. Anxiety. I have discussed this with the primary service. They will increase benzodiazepines and add an SSRI. 4. Atrial fibrillation. The patient remains in sinus rhythm on Cardizem. 5. Protein-calorie malnutrition. Will encourage oral intake. 6. Obstructive sleep apnea syndrome. Oxygen demand is too high at this point for home CPAP. 7. Deep vein thrombosis (DVT) prophylaxis. I have discussed this with the primary service. Lovenox was held due to hematuria, but will be restarted today. I have reviewed the case with the primary hospitalist service and ICU nursing team. Care plans for the day have been reviewed. CRITICAL CARE TIME: 57 minutes spent in the provision of bedside critical care and coordination; excluding any time for the performance of procedures.
--- NOTE | 2020-09-29 09:59 | ECGEPIP ---
Test Date: 2020-09-29 Pat Name: LANDON BETANCOURT Department: Room: [place] [address] Gender: Female Operations Lead: NAMRATA : 1970 Requested By: Teri Martinez Order Number: [id number] Reading MD: Glenna Dominguez Measurements Intervals [place] Rate: 119 P: 47 RI: 126 QRS: 1 QRSD: 74 T: 77 QT: 310 QTc: 436 Interpretive Statements Sinus tachycardia with premature atrial complexes with aberrant conduction Nonspecific ST and T wave abnormality LAE PRIOR WITH R AXIS ST T ABN IMPROVED C/W 09/17/20 NEW S WAVES LAT PRECORDIAL LEADS// RIGHT VENT C COND DELAY AGAI NOTED Electronically Signed on 09-29-2020 9:59:21 EDT by Glenna Dominguez
[2020-09-29 12:00] VITALS: BP 122/66
[2020-09-29] MEDS: ALPRAZolam 0.5 MG TAB PO SCH ×2 (13:54→21:53)
[2020-09-29 15:47] VITALS: BP 130/93
[2020-09-29] MEDS: SODIUM CHLORIDE 0.9% INJ 10 ML SYR IV PRN (17:05)
--- NOTE | 2020-09-29 17:49 | IPNPDOC ---
Text Note Date of Service The patient was seen on 09/29/20. NOTE Subjective: Patient seen and examined at bedside. Hospital day 28, ICU day 14, first tested positive for covid 19 on 08/31/2020. Patient is tachycardic and heart rate was running in 100 - 120s. She is still having her anxiety episodes. She is on Vapotherm 30 L by 80% FiO2 when I saw her in the morning. She denies having any chest pain, abdominal pain, headache. Palacios in place, she still has dark color urine. Objective: physical exam: Gen. appearance: Patient is alert and oriented 3, doesn't appear to be in acute distress. Cardiac: The patient is tachycardiac heart rate in 100 to 120s, regular rate and rhythm, S1 and S2 normal, no murmurs appreciated. Respiratory: Very poor inspiratory effort, diminished bilateral breath sounds in the bases. Abdomen: Soft, no tenderness to palpation in all 4 quadrants, positive bowel sounds appreciated. Extremities: No pedal edema noted. Labs: WBC 13.4 [elevated from yesterday likely due to methylpredisolone], hemoglobin 16.1, HCT 49.3, platelet 291 BMP normal, ferritin 856 trending down. Urine cultures: No growth, Serology: Blastomyces antibody negative, negative for aspergillosis, negative Beta 1,3 D- Glucan. Histoplasma antibody still pending. Imaging: Chest x-ray done on 09/01/2020: Reported as: No acute cardiopulmonary processes appreciated. No focal consolidation or air space disease noted. CT abdomen/pelvis with IV contrast: 09/01/2020: Reported as: Inferior anterior abdominal wall hernia contains inflamed fat, with moderately dilated small bowel leading into the hernial sac and a transition point identified consistent with small bowel obstruction. Incarceration and strangulation cannot be excluded. CTA done on 09/06/2020: Reported as: Suboptimal examination secondary to bolus timing for pulmonary embolism study. However no filling defects in major pulmonary arteries. Bilateral diffuse groundglass opacities. Finding consistent with patient's history of covid 19 pneumonia. Chest x-ray done on 09/06/2020: Reported as: New diffuse bilateral infiltrates left greater than right. Chest x-ray done on 09/09/2020: Reported as: Similar but less focal and more diffuse lung opacities did Chest x-ray on 09/15/2020: Reported as: worsening bilateral infiltrates, now obscuring the hemidiaphragm bilaterally, suspected bilateral pleural effusions. Extensive alveolar edema/infiltrate back to progress since 09/09/2020. Chest x-ray done on 09/16/2020: Reported as: Extensive alveolar lung disease bilaterally and diffusely. Chest x-ray done on 09/17/2020: Reported as: Diffuse bilateral air space disease without significant change from prior examination. Echocardiogram done on 09/17/2020: Reported as: Normal left ventricular internal dimensions and wall thickening. Normal regional left ventricular wall motion. Hyperdynamic left ventricular systolic function. LVEF of 75% by visual estimate. LV diastolic function cannot be advocated due to mind in the setting of atrial fibrillation with rapid ventricle response. 2. Suggestive of moderate elevation of pulmonary artery systolic pressure the low 40s. Normal right ventricle size and systolic function. Appears mild right ventricle hypertrophy. Atrium appears normal in size. No vegetations. No pericardial effusion. Mild IVC Lipitor are suggestive of elevated central venous pressure at least 20 mmHg. Chest x-ray done on 09/18/2020: Reported as: No radiographic changes in the lung field, diffuse alveolar edema pattern. Chest x-ray done on 09/19/2020: Reported as: Extensive alveolar opacity/pulmonary edema pattern persistent. Some improvement noted since 09/17/2020. Chest x-ray done on 09/20/2020: Reported as: Lung nuñez showed gradual improvement. Chest x-ray done on 09/21/2020: Reported as: Lower lobe opacities similar to prior examination. Chest x-ray done on 09/22/2020: Reported as: Perihilar and lower lobe opacities similar to prior examination. Chest x-ray done on 09/23/2020: Reported as: Continued lower lobe opacities appear improved. Chest x-ray done on 09/25/2020: Reported as: No significant change from prior examination. Chest x-ray done on 09/28/2020: Reported as: Bilateral interstitial infiltrates left perihilar region and right base, persistent findings similar to September 25 Assessment: 50-year-old female who initially presented to ED with bowel obstruction had bowel resection surgery on 09/02/2020, covid positive on 08/31/2020, was asympto matic for covid for couple of days after the surgery later started having covid symptoms with shortness of breath. She Was initially on nasal cannula transition to Vapotherm and later to BiPAP. She was intubated eventually due to hypoxia and hypoxemia. She was intubated on 09/18 and was extubated on 09/23. During that period of intubation she was taken care of by electronic lab technician. Patient is still on Vapotherm and BiPAP after the extubation and was transferred back to medical team for further management. Plan: Hypoxic respiratory failure 2/2 covid infection ARDS/PAH/suspected PE: Status post remedisvir, tocilizumab[3 doses], meropenem 10 days, vancomycin 8 days. - Patient was extubated on 09/23 he continues to be on Vapotherm 30/80 and BiPAP. -WBC elevated likely because of steroids. - Repeat pro-Ray was done that was negative. - Will give her a dose of Lasix today as well. - Will continue methylprednisolone. - Encourage patient to use incentive spirometry/ Acapella. Hematuria: - Patient has blood in the urine most likely secondary to [place] trauma on 09/27/2020 - Will start patient on Lovenox 60 mg every 12 hours daily. Given that patient has more risk of PE if not on anticoagulation due to her post covid symptoms. - UA was cloudy and has WBC as well, urine cultures were negative - Send urine looks better than yesterday but still is dark in color. Anxiety: - Will increase the dose of Xanax to 0.5 mg every 8 hours. - Patient is having anxiety episodes a month and breathing shallow to harm increasing her respiratory rate to 30s to 40s. - She denies having any pain on deep breathing. Transient Atrial fibrillation: - Patient was in atrial fibrillation during the intubation and prior to that. - Her rate is well controlled with diltiazem will continue that. - Right now patient is in sinus rhythm. -On anticoagulation with Lovenox 60 mg Covid pneumonia: - Will continue methylprednisolone. - Will start on Lovenox Lovenox 60 mg every 12 hours daily. Obstructive sleep apnea: - Continue to CPAP at night. Physical deconditioning: - Today is day 28 of hospitalization, ICU day 14. Patient was intubated for 6 days. - Patient is tolerating oral intake. - Physical therapy is working with her. Incarcerated incisional hernia. - Status post surgery on 09/02/2020. - Denies having any nausea, vomiting able to tolerate oral intake and is having regular bowel movements. GI prophylaxis: Will continue famotidine. DVT prophylaxis: -Start patient on Lovenox 60 mg twice a day. Disposition: Pending clinical improvement. VS,Fishbone, I+O VS, Fishbone, I+O Laboratory Tests 09/29/20 04:57 Vital Signs Date Time Temp Pulse Resp B/P (MAP) Pulse Ox O2 Delivery O2 Flow Rate FiO2 09/29/20 17:02 127 130/93 09/29/20 15:47 98.0 28 97 HVNI-Vapotherm 40.0 100 I&O- Last 24 Hours up to 6 AM 09/29/20 06:00 Intake Total 1710 ml Output Total 1375 ml Balance 335 ml GME ATTESTATION GME ATTESTATION My faculty preceptor for this patient encounter was physically present during the encounter and was fully available. All aspects of the patient interview, examination, medical decision making process, and medical care plan development were reviewed and approved by the faculty preceptor. The faculty preceptor is aware and concurs with the plan as stated in the body of this note and will attest to such by his/her cosignature. ATTENDING NOTE I, Cecil Apodaca MD, have independently examined this patient and performed my own physical exam, as well as reviewed the documentation and edited where necessary. I have discussed in detail with the resident / student the findings and plan of treatment as documented by the resident / student and edited their note. I agree with their findings and treatment plan and have edited their doc umentation. Teri Martinez MD Sep 29, 2020 17:49 CECIL APODACA MD October 04, 2020 14:53
[2020-09-29] MEDS: NORCO, ANEXSIA 5/325MG TABLET (HYDROcodone/ACETAMINOPHEN) PO PRN ×2 (18:53→23:39)
[2020-09-29 20:08] VITALS: BP 120/74
[2020-09-29] MEDS: FAMOTIDINE 20 MG TAB PO SCH (20:28)
[2020-09-29] MEDS: SERTRALINE HCL 25 MG TABLET PO SCH (20:28)
[2020-09-30] VITALS (7 sets, daily range): BP systolic 130–146; BP diastolic 67–79; O2SAT 92
[2020-09-30] MEDS: NORCO, ANEXSIA 5/325MG TABLET (HYDROcodone/ACETAMINOPHEN) PO PRN ×2 (05:28→13:52)
[2020-09-30] MEDS: ALPRAZolam 0.5 MG TAB PO SCH ×3 (05:30→20:48)
[2020-09-30] MEDS: SODIUM CHLORIDE 0.9% INJ 10 ML SYR IV SCH ×2 (06:50→17:36)
[2020-09-30] MEDS: HumaLOG INSULIN (NovoLOG) PER UNIT SC SCH ×4 (07:30→21:00)
[2020-09-30 07:48] LABS: BASO # 0.1 10^3/uL (0.0-0.2); BASO % 0.3 % (0.0-1.0); EOS # 0.1 10^3/uL (0.0-0.5); EOS % 0.3 % (0.0-3.0); HEMATOCRIT 47.2 % (36.0-47.0); HEMOGLOBIN 15.4 g/dl (12.0-15.5); LYMPH # 0.9 10^3/uL (1.5-5.0); LYMPH % 4.3 % (24.0-44.0); MEAN CORPUSCULAR HEMOGLOBIN 30.6 pg (27.0-33.0); MEAN CORPUSCULAR HGB CONC 32.6 g/dl (32.0-36.5); MEAN CORPUSCULAR VOLUME 93.8 fl (80.0-96.0); MONO # 0.6 10^3/uL (0.0-0.8); MONO % 3.1 % (2.0-8.0); NEUTROPHILS # 18.1 10^3/uL (1.5-8.5); PLATELET COUNT, AUTOMATED 246 10^3/uL (150-450); RED BLOOD COUNT 5.03 10^6/uL (4.00-5.40); WHITE BLOOD COUNT 19.9 10^3/uL (4.0-10.0)
[2020-09-30] MEDS: IPRATROPIUM 0.5MG/ALBUTEROL 2.5MG INH SOL UD 3ML (DUONEB) NEB SCH ×4 (08:00→19:26)
--- NOTE | 2020-09-30 08:09 | REP ---
INDICATION: post COVID. COMPARISON: Comparison chest x-ray 09/28/2020. TECHNIQUE: Portable upright AP chest radiograph. FINDINGS: Diffuse interstitial lung disease persists, most prominently affecting the left perihilar region and right lower lobe region where there are bronchograms again noted. Left hemidiaphragm is slightly elevated. Right-sided PICC line is again noted in place. There are clips in the left upper quadrant of the abdomen. Patient is status post cervical discectomy and fusion plating. Monitoring electrodes are seen. Heart is not enlarged.. IMPRESSION: Interstitial infiltrates persist bilaterally radiographically unchanged.. <Electronically signed by Barney Rosado > 09/30/20 [id number]
[2020-09-30 08:23] LABS: ALBUMIN 3.3 GM/DL (3.2-5.2); ALT/SGPT 105 U/L (12-78); BILIRUBIN,TOTAL 1.2 MG/DL (0.2-1.0); BLOOD UREA NITROGEN 42 MG/DL (7-18); CALCIUM LEVEL 9.3 MG/DL (8.5-10.1); CARBON DIOXIDE LEVEL 29 MEQ/L (21-32); CHLORIDE LEVEL 104 MEQ/L (98-107); CHOLESTEROL LEVEL 293 MG/DL (< 200); CPK CREATINE PHOSPHOKINASE 27 U/L (26-192); CREATININE FOR GFR 0.38 MG/DL (0.55-1.30); FERRITIN 893 NG/ML (8-252); GLOMERULAR FILTRATION RATE > 60.0 (>51); GLUCOSE, FASTING 106 MG/DL (70-100); LDH LACTATE DEHYDROGENASE 499 U/L (84-246); PHOSPHORUS LEVEL 3.5 MG/DL (2.5-4.9); POTASSIUM SERUM 3.4 MEQ/L (3.5-5.1); SODIUM LEVEL 139 MEQ/L (136-145); TOTAL PROTEIN 6.7 GM/DL (6.4-8.2); TRIGLYCERIDES LEVEL 351 MG/DL (<150)
[2020-09-30] MEDS ORDERED: KCL 20MEQ IN 100ML SWI (KRUN) 20 MEQ in IV 1 EA IV ONE ×2 (11:30)
[2020-09-30] MEDS ORDERED: FUROSEMIDE 40MG/4ML VIAL (J1940) IV ONE (11:30)
[2020-09-30] MEDS ORDERED: VANCOMYCIN ORAL SOL 250MG/5ML ORAL SYRINGE PO SCH (12:00)
--- NOTE | 2020-09-30 13:57 | CCN ---
CRITICAL CARE NOTE DATE: 09/30/2020 The patient is seen in the intensive care unit profoundly hypoxemic, fatigued. She refused her noninvasive positive pressure ventilation through the night and is more hypoxic. Temperature is 96.7 pulse rate 114, respirations 28, blood pressure 137/79. Saturation is 96% on 100% VapoTherm. Intake and output for the past 24 hours is 960 in, 885 out, since midnight 420 in, 215 out. She is ill appearing, sedate, fatigued. Oral mucosa is pink. there is a lesion on her lip. Neck is supple. I am unable to appreciate jugular veins. Carotid upstroke is palpable. Heart sounds are regular without appreciable murmur. Breath sounds: Crepitant rales bilaterally. Abdomen is soft. Bowel sounds in right lower quadrant. Extremities show muscle weakness. DIAGNOSTIC STUDIES: Her white cell count is up significantly today at 19.9 with 91% neutrophils. Hemoglobin is down slightly at 15.4, hematocrit 47.2, platelet count is holding at 246. The electrolytes are sodium 139, potassium is down to 3.4, chloride 104, CO2 of 29, BUN 42, creatinine 0.38, glucose 106. Her phosphorus is 3.5. Ferritin is up slightly at 893, but LDH is down at 499. Liver enzymes are AST 31, ALT 105, and the albumin is 3.3. Chest imaging shows no new infiltrates. Diffuse bilateral interstitial prominences noted. On medications review, she is receiving Medrol 16 mg a day, DuoNeb four times a day, diltiazem 90 mg four times a day, Xanax 0.5 mg by mouth every 8 as needed, and sertraline 25 mg at bedtime. On review of her case with nursing, she has had copious odiferous diarrhea throughout the morning hours. The primary problem requiring critical attention is hypoxemia, hypoxemic respiratory failure. The patient's oxygen needs are quite high, and she must utilize her noninvasive pressure ventilation in the night to avoid further progression. Post COVID interstitial lung disease. She is receiving Medrol 16 mg a day. Anxiety. Patient is less anxious with intermittent use of anxiolytics. Diarrhea. Given the previous exposure to broad-spectrum antibiotics, we will order a Clostridium (C) difficile titer and empirically begin oral vancomycin. Hypokalemia. We will replace and recheck this electrolyte. Deep venous thrombosis (DVT) prophylaxis is being addressed with thromboembolic deterrents (TEDs) and sequentials in light of the hematuria. Ulcer prophylaxis is being addressed with Pepcid. I reviewed the case with the attending hospitalist staff. I have reviewed the patient's current status and care plans for the day with the intensive care unit (ICU) nursing team. Fifty-two minutes was spent in the provision of bedside critical care and coordination, exclusive of any time for the performance of procedures.
--- NOTE | 2020-09-30 17:25 | IPNPDOC ---
Text Note Date of Service The patient was seen on 09/30/20. NOTE Subjective: Patient examined and seen at bedside today. Hospital day 29, ICU day 15, first tested positive for covid on 08/31/2020. Over night patient did not use her BiPAP and refuses to use it. For that reason she is hypoxic. Patient is still tachycardic from her anxiety heart rate in 100 to 120s. She is currently maximum settings of Vapotherm 40 L/100% FiO2. She did have blood in her urine overnight along with clots, her urine was dark this morning with clots. She did have 3 liquid bowel movements, no blood. She looks tried and weak compared to yesterday. Objective: Physical exam: General appearance: Patient is alert oriented 3, appears more tired than yesterday, she did not use her BiPAP overnight. Cardiac: Patient is tachycardic, heart rate is ranging from 100-120 changes, regular rate and rhythm, S1 normal and S2 normal, no no murmurs appreciated. Respiratory: Diminished breath sounds diffusely throughout the lungs more so in the bases, did notice mild crackles in the right lung base on inspiration. Overall patient has a very poor inspiratory effort. She denies having any pain taking a deep breath so. No wheezes or rhonchi appreciated. Abdomen: Abdomen is soft, no tenderness on palpation and all 4 quadrants, positive bowel sounds appreciated. Integument: Patient does have warm moist red flat rash in her inguinal skin folds. Looks like a cydney rash. Patient denies having any itching in this region. Extremities: No pedal edema appreciated. Genitourinary: Patient has a Palacios in place, patient has hematuria going on since 3 days which mildly decreased yesterday but she continued to have some blood clots overnight and today. Labs: WBC 19.9 [acute elevation since yesterday], hemoglobin 15.4, HCT 47.2, platelet 246. BMP sodium 139, K3.4[replaced orally]. Ferritin 893, LDH gradually decreasing. Urine cultures: No growth, Serology: Blastomyces antibody negative, negative for aspergillosis, negative Beta 1,3 D- Glucan. Histoplasma antibody still pending. Imaging: Chest x-ray done on 09/01/2020: Reported as: No acute cardiopulmonary processes appreciated. No focal consolidation or air space disease noted. CT abdomen/pelvis with IV contrast: 09/01/2020: Reported as: Inferior anterior abdominal wall hernia contains inflamed fat, with moderately dilated small bowel leading into the hernial sac and a transition point identified consistent with small bowel obstruction. Incarceration and strangulation cannot be excluded. CTA done on 09/06/2020: Reported as: Suboptimal examination secondary to bolus timing for pulmonary embolism study. However no filling defects in major pulmonary arteries. Bilateral diffuse groundglass opacities. Finding consistent with patient's history of covid 19 pneumonia. Chest x-ray done on 09/06/2020: Reported as: New diffuse bilateral infiltrates left greater than right. Chest x-ray done on 09/09/2020: Reported as: Similar but less focal and more diffuse lung opacities did Chest x-ray on 09/15/2020: Reported as: worsening bilateral infiltrates, now obscuring the hemidiaphragm bilaterally, suspected bilateral pleural effusions. Extensive alveolar edema/infiltrate back to progress since 09/09/2020. Chest x-ray done on 09/16/2020: Reported as: Extensive alveolar lung disease bilaterally and diffusely. Chest x-ray done on 09/17/2020: Reported as: Diffuse bilateral air space disease without significant change from prior examination. Echocardiogram done on 09/17/2020: Reported as: Normal left ventricular internal dimensions and wall thickening. Normal regional left ventricular wall motion. Hyperdynamic left ventricular systolic function. LVEF of 75% by visual estimate. LV diastolic function cannot be advocated due to mind in the setting of atrial fibrillation with rapid ventricle response. 2. Suggestive of moderate elevation of pulmonary artery systolic pressure the low 40s. Normal right ventricle size and systolic function. Appears mild right ventricle hypertrophy. Atrium appears normal in size. No vegetations. No pericardial effusion. Mild IVC Lipitor are suggestive of elevated central venous pressure at least 20 mmHg. Chest x-ray done on 09/18/2020: Reported as: No radiographic changes in the lung field, diffuse alveolar edema pattern. Chest x-ray done on 09/19/2020: Reported as: Extensive alveolar opacity/pulmonary edema pattern persistent. Some improvement noted since 09/17/2020. Chest x-ray done on 09/20/2020: Reported as: Lung nuñez showed gradual improvement. Chest x-ray done on 09/21/2020: Reported as: Lower lobe opacities similar to prior examination. Chest x-ray done on 09/22/2020: Reported as: Perihilar and lower lobe opacities similar to prior examination. Chest x-ray done on 09/23/2020: Reported as: Continued lower lobe opacities appear improved. Chest x-ray done on 09/25/2020: Reported as: No significant change from prior examination. Chest x-ray done on 09/28/2020: Reported as: Bilateral interstitial infiltrates left perihilar region and right base, persistent findings similar to September 25 Chest x-ray done on 10/01/2019: Reported as: Interstitial infiltrates persistent bilaterally radiographically unchanged. Assessment: 50-year-old female who initially presented to ED with bowel obstruction had bowel resection surgery on 09/02/2020, covid positive on 08/31/2020, was asymptomatic for covid for couple of days after the surgery later started having covid symptoms with shortness of breath. She Was initially on nasal cannula transition to Vapotherm and later to BiPAP. She was intubated eventually due to hypoxia and hypoxemia. She was intubated on 09/18 and was extubated on 09/23. During that period of intubation she was taken care of by compliance paralegal. Patient is still on Vapotherm and BiPAP after the extubation and was transferred back to medical team for further management. Plan: Hypoxic respiratory failure secondary to ARDS [covid infection]/pulmonary artery hypertension/suspected PE: Status post remedisvir, tocilizumab [3 doses], meropenem 10 days, vancomycin 8 days. - Today patient has elevated white count from 13.4 to 19.4, she did have 3 loose stools, given the possibility of C. difficile infection we'll start her on oral vancomycin 125 mg by mouth every 6 hours. Testing for stool C. difficile has been sent prior to the starting of antibiotics. - Given her renal function was improving with diuretics and mild crackles on examination of her lungs will give her a dose of Lasix 40 mg IV once. 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 - Be highly recommend patient to use BiPAP at bedtime as that will help to her breathing at nighttime. - Encourage patient to use incentive spirometry/Acapella. Hematuria: - Patient did continue to have blood in her urine along with clots yesterday night and today morning. -We still think one of the reason why she is having clots and blood in her urine is because of the Palacios trauma. - Given that she was restarted on Lovenox 60 mg every 12 hours yesterday might be one of the reason why she is still continued to have blood in her urine, given the risk of a bleeding over the clots in the present situation will continue to hold Lovenox for today and see how she does overnight. - Urine Culture was done and it was negative. Loose stools/diarrhea: - Patient did have 3 large loose stools. - Given her status post antibiotic treatment and loose stools and elevated white count we suspect C. difficile infection. - Stool sample was sent for C. difficile testing. - Will start patient on oral vancomycin 125 mg by mouth every 6 hours. Anxiety: - Will continue Xanax 0.5 mg every 8 hours. - Patient was encouraged to take slow deep breaths to her nose and output mouth and to focus on her breathing to help her decrease her anxiety.. Transient atrial fibrillation: - And is now in sinus rhythm. - And had a transient episode of atrial fibrillation when she was intubated and prior to intubation and the rate was well controlled with diltiazem and will continue that. - Will hold off on anticoagulation given the patient is having hematuria. Post covid interstitial pneumonitis: - Will continue methylprednisone. - Will hold Lovenox 60 mg every 12 hours given the patient is having hematuria. - Encourage patient to use incentive spirometry/Acapella Obstructive sleep apnea: -Patient use CPAP at home for this condition. - Patient is requiring BiPAP at hospital given her hypoxia. -We highly recommend patient to use BiPAP at bedtime. Physical deconditioning: - Day 29 of hospitalization, ICU day 15,s/p intubation for 6 days. - Encourage patient to increase her oral intake both liquids and solid foods. - Physical therapy is working with her. Incarcerated incisional hernia. - Status post surgery on 09/02/2020. - Denies having any nausea, vomiting able to tolerate oral intake and is having regular bowel movements. GI prophylaxis: Will continue famotidine. DVT prophylaxis: -Will hold off on Lovenox 60 mg every 12 hours for now due to hematuria. - Teds and sequentials. Disposition: Pending clinical improvement. Patient's recovery from post covid symptoms is very slow. Patient still in ICU as she is requiring high flow oxygen/Vapotherm at day time and requiring BiPAP at nighttime to maintain her saturations. VS,Fishbone, I+O VS, Fishbone, I+O Laboratory Tests 09/30/20 07:29 Vital Signs Date Time Temp Pulse Resp B/P (MAP) Pulse Ox O2 Delivery O2 Flow Rate FiO2 09/30/20 15:30 96 HVNI-Vapotherm 40.0 100 09/30/20 14:22 28 09/30/20 13:37 120 134/91 09/30/20 12:00 97.1 I&O- Last 24 Hours up to 6 AM 09/30/20 05:59 Intake Total 1290 ml Output Total 945 ml Balance 345 ml GME ATTESTATION GME ATTESTATION My faculty preceptor for this patient encounter was physically present during the encounter and was fully available. All aspects of the patient interview, examination, medical decision making process, and medical care plan development were reviewed and approved by the faculty preceptor. The faculty preceptor is aware and concurs with the plan as stated in the body of this note and will attest to such by his/her cosignature. ATTENDING NOTE I, Cecil Apodaca MD, have independently examined this patient and performed my own physical exam, as well as reviewed the documentation and edited where necessary. I have discussed in detail with the resident / student the findings a nd plan of treatment as documented by the resident / student and edited their note. I agree with their findings and treatment plan and have edited their documentation. Total time spent on discharge including coordination of care, review of chart, documentation, actual patient contact is around 35 minutes Teri Martinez MD Sep 30, 2020 17:25 CECIL APODACA MD October 04, 2020 14:56
[2020-09-30] MEDS: VANCOMYCIN ORAL SOL 250MG/5ML ORAL SYRINGE PO SCH ×2 (17:32→23:56)
[2020-09-30] MEDS: SERTRALINE HCL 25 MG TABLET PO SCH (20:30)
[2020-09-30] MEDS: FAMOTIDINE 20 MG TAB PO SCH (20:30)
[2020-10-01] VITALS (8 sets, daily range): BP systolic 123–151; BP diastolic 73–85
[2020-10-01] MEDS: VANCOMYCIN ORAL SOL 250MG/5ML ORAL SYRINGE PO SCH (05:53)
[2020-10-01] MEDS: ALPRAZolam 0.5 MG TAB PO SCH ×3 (05:53→21:12)
[2020-10-01] MEDS: SODIUM CHLORIDE 0.9% INJ 10 ML SYR IV SCH ×2 (05:57→17:02)
[2020-10-01 06:47] LABS: BASO # 0.1 10^3/uL (0.0-0.2); BASO % 0.3 % (0.0-1.0); EOS # 0.1 10^3/uL (0.0-0.5); EOS % 0.3 % (0.0-3.0); HEMATOCRIT 47.2 % (36.0-47.0); HEMOGLOBIN 15.5 g/dl (12.0-15.5); LYMPH # 1.1 10^3/uL (1.5-5.0); LYMPH % 5.9 % (24.0-44.0); MEAN CORPUSCULAR HEMOGLOBIN 30.4 pg (27.0-33.0); MEAN CORPUSCULAR HGB CONC 32.8 g/dl (32.0-36.5); MEAN CORPUSCULAR VOLUME 92.5 fl (80.0-96.0); MONO # 0.5 10^3/uL (0.0-0.8); MONO % 2.9 % (2.0-8.0); NEUTROPHILS # 16.2 10^3/uL (1.5-8.5); NEUTROPHILS % 89.1 % (36.0-66.0); PLATELET COUNT, AUTOMATED 243 10^3/uL (150-450); WHITE BLOOD COUNT 18.2 10^3/uL (4.0-10.0)
[2020-10-01 06:53] LABS: BLOOD UREA NITROGEN 35 MG/DL (7-18); CALCIUM LEVEL 9.1 MG/DL (8.5-10.1); CARBON DIOXIDE LEVEL 25 MEQ/L (21-32); CHLORIDE LEVEL 103 MEQ/L (98-107); CREATININE FOR GFR 0.29 MG/DL (0.55-1.30); GLOMERULAR FILTRATION RATE > 60.0 (>51); GLUCOSE, FASTING 112 MG/DL (70-100); POTASSIUM SERUM 3.6 MEQ/L (3.5-5.1); SODIUM LEVEL 135 MEQ/L (136-145)
[2020-10-01] MEDS: HumaLOG INSULIN (NovoLOG) PER UNIT SC SCH ×4 (07:30→21:00)
[2020-10-01] MEDS: IPRATROPIUM 0.5MG/ALBUTEROL 2.5MG INH SOL UD 3ML (DUONEB) NEB SCH ×4 (07:46→20:44)
[2020-10-01 09:27] LABS: INR 1.04; PARTIAL THROMBOPLASTIN TIME 27.1 SECONDS (24.2-38.5); PROTHROMBIN TIME 13.8 SECONDS (12.5-14.3)
[2020-10-01 09:30] LABS: D-DIMER QUANT 2215.49 ng/ml (<500)
--- NOTE | 2020-10-01 10:18 | CCN ---
CRITICAL CARE NOTE DATE: 10/01/2020 START TIME: 0900 STOP TIME: 946 SUBJECTIVE: I attended Senia Kumari here in the Intensive Care Unit. Patient has been examined. Chart reviewed. I spoke with the primary service as well as the nurses at the bedside regarding her status. She had previously made herself a do not reintubate but apparently last evening has decided to change her mind in that regard and is now back to being a full code. Despite making this decision, she remains noncompliant with CPAP. She is wearing the Vapotherm. T-max overnight 97.3. Blood pressure 120s to the 150s. Heart rate 90 to the 120s. Respiratory rate generally upper teens to the upper twenties without obvious accessory muscle use. Oxygen saturations even on maximum Vapotherm with any activity drop into the 70s. Most recent laboratories show a white blood cell count of 18.2, hemoglobin 15.5, platelet count 243,000, 89% segs, no bands. Sodium 135, potassium 3.6, chloride 103, CO2 25, BUN 35, creatinine 0.29. D-dimer is diminished from several days ago down to 2,215 today. Ferritin yesterday 893. OBJECTIVE: GENERAL: She is awake, alert, appropriate, and fairly comfortable even despite her desaturations. Only mildly tachypneic but no obvious accessory muscle use. She is able to be reasonably conversant. HEENT: Pupils do react. Sclera clear. Trachea is in the midline. Mild perioral cyanosis with her desaturations, but she does recover. CHEST: Chest does show some dependent crackles. Expansion is symmetric. Anterior lung nuñez are clear. No other focal adventitious breath sounds are identified. CARDIAC: Distant, generally regular. Peripheral pulses diminished but palpable. Trace edema. ABDOMEN: Obese, soft with active bowel sounds. No convincing organomegaly or masses. EXTREMITIES: Extremities show no obvious cyanosis or clubbing. NEUROLOGIC: She is awake, alert, and appropriate. No new chest x-ray today. MEDICATIONS: Medication list was reviewed. She remains on Medrol as well as oral vancomycin for concern over C. difficile. MOST PRESSING PROBLEMS REQUIRING MY PRESENCE AT THE BEDSIDE: 1. Hypoxemia, multifactorial. 2. Post-COVID interstitial lung disease. 3. Diarrhea. 4. DVT ulcer prophylaxis. I had a very lengthy and pointed conversation with the patient regarding her current status and refusal of pressure therapy. She clearly responds very nicely to the addition of CPAP. Now given the fact that she has made herself a full code again, I attempted to stress to her the importance of being compliant with pressure therapy if we have any chance of avoiding further decompensation and return to mechanical ventilation. My concern for her clearly is that if she ends up reintubated her chances of survival fall dramatically. She appears to convey understanding. She does struggle with anxiety, and she is on anxiolytics, and they do seem to help. My hopes is that we can achieve a reasonable balance for her. C. difficile remains pending. She has had a little less diarrhea. She remains on oral vancomycin. I spoke with primary service regarding her care as well. At this point, she does remain critically ill. Her situation is marginal. At this point, we will proceed as outlined above, and my hope is that she will be much more compliant with pressure therapy. I left the bedside at 0947 hours. Forty-seven minutes of critical care time was at the bedside not including procedures.
--- NOTE | 2020-10-01 14:51 | IPNPDOC ---
Text Note Date of Service The patient was seen on 10/01/20. NOTE Patient was seen and examined by me this morning. The patient continues to be on CPAP alternating with the Vapotherm. She stated that she feels almost the same. No acute events overnight. Physical exam: General appearance: Patient is alert oriented 3, appears more tired than yesterday, she did not use her BiPAP overnight. Cardiac: Patient is tachycardic, heart rate is ranging from 100-120 changes, regular rate and rhythm, S1 normal and S2 normal, no no murmurs appreciated. Respiratory: Diminished breath sounds diffusely throughout the lungs more so in the bases, did notice mild crackles in the right lung base on inspiration. Overall patient has a very poor inspiratory effort. Abdomen: Abdomen is soft, no tenderness on palpation and all 4 quadrants, positive bowel sounds appreciated. Integument: Patient does have warm moist red flat rash in her inguinal skin fo lds. Looks like a cydney rash. Patient denies having any itching in this region. Extremities: No pedal edema appreciated. Genitourinary: Patient has a Palacios in place, patient has hematuria going on s marily 3 days which mildly decreased yesterday Labs reviewed. Radiology reviewed Assessment and plan 50-year-old female who initially presented to ED with bowel obstruction had bowel resection surgery on 09/02/2020 for an incarcerated hernia with end-to-end anastomosis recovered well from that, covid positive on 08/31/2020, was asymptomatic for covid for couple of days after the surgery later started having covid symptoms with shortness of breath. She Was initially on nasal cannula transition to Vapotherm and later to BiPAP. She was intubated eventually due to hypoxia and hypoxemia. She was intubated on 09/18 and was extubated on 09/23. During that period of intubation she was taken care of by optometrist owner. . She has completed the course of time to severe continues to be on dexamethasone. And has had 3 doses of tocilizumab. . She wanted to be DNR/DNI. After extubation, but the yesterday on 09/30/20, has decided to be full code again. The patient has been partial pronating using incentive spirometer. Patient is still on Vapotherm alternating with BiPAP. This is a date the of hospital admission. 1. Hypoxic respiratory failure . Could be multifactorial secondary to ARDS [covid infection]/pulmonary artery hypertension/suspected PE: Status post remedisvir, tocilizumab [3 doses], meropenem and vancomycin 10 days. As per pulmonary recommendations. Dexamethasone was reduced without prednisone. She has been noncompliant with her CPAP/BiPAP and has been counseled a lot regarding t hat. Encouraged her to use incentive/Acapella. The patient has had a CT scan with IV contrast which ruled out any pulmonary embolism, but her chest x-rays have been improving and for that reason, because of her continued hypoxia. It was thought that she might have been having a pulmonary embolism and he was started on Lovenox full dose therapeutic, but because she continues to have hematuria that has been on hold right now. Continue monitoring for hematuria and restart once there isn't improvement. 2. Anxiety: Will continue Xanax 0.5 mg every 8 hours. 3. Transient atrial fibrillation: Likely secondary to hypoxia. Now in sinus rhythm. As it was transient, we will have her discussion with her regarding anticoagulation once she clinically improves 4. Post covid interstitial pneumonitis: Continue without prednisone. This has caused a reactive leukocytosis. No active signs of any other infections. 5. Obstructive sleep apnea: CPAP BiPAP. Counseled in detail. 6. Physical deconditioning: Day 30 of hospitalization. Physical therapy working with her. 7. Incarcerated incisional hernia. Status post surgery on 09/02/2020. Denies having any nausea, vomiting able to tolerate oral intake and is having regular bowel movements. GI prophylaxis: famotidine. DVT prophylaxis: Will hold off on Lovenox for now due to hematuria, Teds and sequentials. Disposition: Pending clinical improvement. Patient's recovery from post covid symptoms is very slow. Patient still in ICU as she is requiring high flow oxygen/Vapotherm at day time and requiring BiPAP at nighttime to maintain her saturations. VS,Fishbone, I+O VS, Fishbone, I+O Laboratory Tests 10/01/20 06:22 Vital Signs Date Time Temp Pulse Resp B/P (MAP) Pulse Ox O2 Delivery O2 Flow Rate FiO2 10/01/20 12:17 120 129/85 10/01/20 12:05 97.2 25 86 NIPPV (BIPAP/CPAP) 15.0 10/01/20 08:57 90 I&O- Last 24 Hours up to 6 AM 10/01/20 05:59 Intake Total 1480 ml Output Total 1760 ml Balance -280 ml RAÚL CARR MD Oct 01, 2020 14:51
[2020-10-01] MEDS: NORCO, ANEXSIA 5/325MG TABLET (HYDROcodone/ACETAMINOPHEN) PO PRN ×2 (14:57→21:15)
[2020-10-01] MEDS: MAALOX 30 ML SUSP *UDC PO PRN (14:58)
[2020-10-01] MEDS ORDERED: ALTEPLASE 2MG/2ML VIAL XX ONE (21:00)
[2020-10-01] MEDS: FAMOTIDINE 20 MG TAB PO SCH (21:12)
[2020-10-01] MEDS: SERTRALINE HCL 25 MG TABLET PO SCH (21:12)
[2020-10-02] VITALS: BP 141/77
[2020-10-02 04:00] VITALS: BP 151/79
[2020-10-02 05:08] LABS: BLOOD UREA NITROGEN 31 MG/DL (7-18); CARBON DIOXIDE LEVEL 32 MEQ/L (21-32); CHLORIDE LEVEL 103 MEQ/L (98-107); GLOMERULAR FILTRATION RATE > 60.0 (>51); GLUCOSE, FASTING 130 MG/DL (70-100); POTASSIUM SERUM 3.7 MEQ/L (3.5-5.1); SODIUM LEVEL 140 MEQ/L (136-145)
[2020-10-02] MEDS ORDERED: FLUCONAZOLE 50MG TABLET PO ONE (05:25)
[2020-10-02] MEDS: ALPRAZolam 0.5 MG TAB PO SCH ×3 (06:36→21:16)
[2020-10-02] MEDS: SODIUM CHLORIDE 0.9% INJ 10 ML SYR IV SCH ×2 (06:37→16:58)
[2020-10-02] MEDS: IPRATROPIUM 0.5MG/ALBUTEROL 2.5MG INH SOL UD 3ML (DUONEB) NEB SCH ×4 (07:46→19:31)
[2020-10-02 07:54] LABS: BASO # 0.1 10^3/uL (0.0-0.2); BASO % 0.3 % (0.0-1.0); EOS % 0.1 % (0.0-3.0); HEMATOCRIT 47.2 % (36.0-47.0); HEMOGLOBIN 15.1 g/dl (12.0-15.5); LYMPH # 0.8 10^3/uL (1.5-5.0); LYMPH % 4.6 % (24.0-44.0); MEAN CORPUSCULAR HEMOGLOBIN 30.3 pg (27.0-33.0); MEAN CORPUSCULAR VOLUME 94.6 fl (80.0-96.0); MONO # 0.6 10^3/uL (0.0-0.8); MONO % 3.4 % (2.0-8.0); NEUTROPHILS # 16.4 10^3/uL (1.5-8.5); NEUTROPHILS % 90.3 % (36.0-66.0); PLATELET COUNT, AUTOMATED 261 10^3/uL (150-450); RED BLOOD COUNT 4.99 10^6/uL (4.00-5.40); WHITE BLOOD COUNT 18.2 10^3/uL (4.0-10.0)
[2020-10-02 08:11] VITALS: BP 138/75
[2020-10-02] MEDS: HumaLOG INSULIN (NovoLOG) PER UNIT SC SCH ×4 (08:19→21:00)
[2020-10-02] MEDS: guaiFENesin ER 600 MG TAB PO SCH ×2 (10:54→21:16)
[2020-10-02 12:28] VITALS: BP 133/75
--- NOTE | 2020-10-02 12:37 | IPN ---
PROGRESS NOTE DATE: 10/02/2020 SUBJECTIVE: The patient has been examined and chart reviewed. I spoke at length with the nurse at the bedside. She has been much more compliant with her CPAP. She has actually been able to be on her home device with 15 cm of water pressure with oxygen bleed-in. OBJECTIVE: T-max overnight 97.4, blood pressure 138 to 150s, heart rates generally 90s to the low 100s with a sinus mechanism, respiratory rate generally in the 20s without accessory muscle use. Input and output midnight to midnight 1,300 mL in with 1,090 mL out. Most recent laboratories show a white blood cell count of 18.2, hemoglobin 15.1, platelet count of 261,000, 90% segs, no bands. Sodium 140, potassium 3.7, chloride 103, CO2 32, BUN 31 and creatinine 0.3. Glucose of 130. On exam she is awake, alert, appropriate. Actually sitting up in bed eating breakfast on Vapotherm 100% at 20 liter flow rate. Current saturation 91% while eating. Pupils react. Sclerae clear. Trachea is in the midline. Membranes are mildly dry. Chest is clear anteriorly. There are some fine opening dependent crackles but rubs, rhonchi, or wheezes. No other focal adventitious breath sounds are identified. Cardiac exam is distant but regular. Peripheral pulses are diminished but palpable, trace edema. Abdomen is obese, soft with active bowel sounds, no convincing organomegaly or masses. Extremities with no cyanosis or clubbing. Neurologically she is awake, alert, and appropriate. Psychiatric: Normal mood and affect. ASSESSMENT: 1. Hypoxemic respiratory failure, multifactorial. 2. Post-COVID infection with underlying fibrosis. 3. Obstructive sleep apnea. 4. Underlying diarrhea, awaiting C. difficile results. 5. Ulcer and DVT prophylaxis. PLAN: At this point we will continue her on her current Medrol and oral Vancomycin. She has been much more compliant with pressure therapy yesterday and it has paid dividends. I discussed with her today trying to continue that course until she is able to be up and out of bed on her own. I would make no changes in her medications just yet. Hopefully we can begin to wean some of her agents over the next 48 hours or so. I discussed with the patient the above plan and discussed it as well with the nurse at the bedside. All are in agreement and will continue with that. Further recommendations will be made in the progress records as new information becomes available.
[2020-10-02 15:06] VITALS: BP 145/76
--- NOTE | 2020-10-02 16:29 | IPNPDOC ---
Text Note Date of Service The patient was seen on 10/02/20. NOTE Subjective: Patient seen and examined at bedside today. Hospital day 31, ICU day 17, first tested positive for covid on 08/31/2020 Overnight patient did use CPAP better and her saturations were in upper 80s to lower 90s. Heart heart rate is still in 100s, her anxiety has been improved and been well-maintained on Xanax. He is currently when I went into the room on Vapotherm at 20 L/90% FiO2. She still has some blood clots in her urine, but looks much better than yesterday. She denies having any headache, chest pain, abdominal pain. Objective: Physical exam: Gen. appearance: Patient is AO 3, patient is on Vapotherm when I went in, saturating in lower 90s , she does not appear to be in acute distress. Cardiac: Patient is tachycardic, HR ranging and 100s, regular rate and rhythm, S1 and S2 normal, no murmurs appreciated. Respiratory: Very poor inspiratory effort, diminished breath sounds bilaterally throughout the lung, did not appreciate any wheezes or rhonchi. Abdomen: Abdomen is soft, positive bowel sounds in all 4 quadrants, no tenderness to palpation. Integument: Patient still has a red flat rash and nystatin powder applied over in her inguinal skin fold, looks like cydney rash . He denies having any itching in this region. Extremities: Patient has teds and sequentials on couldn't appreciate if there is any pedal edema. : Patient has Palacios in place, her urine looks clear than yesterday did appreciate few Blood clots in her catheter. Labs: WBC 18.2, hemoglobin 15.5, hematocrit 47.2, platelet 243, BMP: Sodium 148, K3.7, BUN 31, creatinine 0.3. Patient's d-dimer are gradually trending down 2215. Imaging: Chest x-ray done on 09/01/2020: Reported as: No acute cardiopulmonary processes appreciated. No focal consolidation or air space disease noted. CT abdomen/pelvis with IV contrast: 09/01/2020: Reported as: Inferior anterior abdominal wall hernia contains inflamed fat, with moderately dilated small bowel leading into the hernial sac and a transition point identified consistent with small bowel obstruction. Incarceration and strangulation cannot be excluded. CTA done on 09/06/2020: Reported as: Suboptimal examination secondary to bolus timing for pulmonary embolism study. However no filling defects in major pulmonary arteries. Bilateral diffuse groundglass opacities. Finding consistent with patient's history of covid 19 pneumonia. Chest x-ray done on 09/06/2020: Reported as: New diffuse bilateral infiltrates left greater than right. Chest x-ray done on 09/09/2020: Reported as: Similar but less focal and more diffuse lung opacities did Chest x-ray on 09/15/2020: Reported as: worsening bilateral infiltrates, now obscuring the hemidiaphragm bilaterally, suspected bilateral pleural effusions. Extensive alveolar edema/infiltrate back to progress since 09/09/2020. Chest x-ray done on 09/16/2020: Reported as: Extensive alveolar lung disease bilaterally and diffusely. Chest x-ray done on 09/17/2020: Reported as: Diffuse bilateral air space disease without significant change from prior examination. Echocardiogram done on 09/17/2020: Reported as: Normal left ventricular internal dimensions and wall thickening. Normal regional left ventricular wall motion. Hyperdynamic left ventricular systolic function. LVEF of 75% by visual estimate. LV diastolic function cannot be advocated due to mind in the setting of atrial fibrillation with rapid ventricle response. 2. Suggestive of moderate elevation of pulmonary artery systolic pressure the low 40s. Normal right ventricle size and systolic function. Appears mild right ventricle hypertrophy. Atrium appears normal in size. No vegetations. No pericardial effusion. Mild IVC Lipitor are suggestive of elevated central venous pressure at least 20 mmHg. Chest x-ray done on 09/18/2020: Reported as: No radiographic changes in the lung field, diffuse alveolar edema pattern. Chest x-ray done on 09/19/2020: Reported as: Extensive alveolar opacity/pulmonary edema pattern persistent. Some improvement noted since 09/17/2020. Chest x-ray done on 09/20/2020: Reported as: Lung nuñez showed gradual i mprovement. Chest x-ray done on 09/21/2020: Reported as: Lower lobe opacities similar to prior examination. Chest x-ray done on 09/22/2020: Reported as: Perihilar and lower lobe opacities similar to prior examination. Chest x-ray done on 09/23/2020: Reported as: Continued lower lobe opacities appear improved. Chest x-ray done on 09/25/2020: Reported as: No significant change from prior examination. Chest x-ray done on 09/28/2020: Reported as: Bilateral interstitial infiltrates left perihilar region and right base, persistent findings similar to September 25 Chest x-ray done on 10/01/2019: Reported as: Interstitial infiltrates persistent bilaterally radiographically unchanged. Assessment: 50-year-old female who initially presented to ED with bowel obstruction had bowel resection surgery on 09/02/2020, covid positive on 08/31/2020, was asymptomatic for covid for couple of days after the surgery later started having covid symptoms with shortness of breath. She Was initially on nasal cannula transition to Vapotherm and later to BiPAP. She was intubated eventually due to hypoxia and hypoxemia. She was intubated on 09/18 and was extubated on 09/23. During that period of intubation she was taken care of by cement mason apprentice. Patient is still on Vapotherm and BiPAP after the extubation and was transferred back to medical team for further management. Plan: Hypoxic respiratory failure secondary to ARDS [covid infection]/pulmonary artery hypertension/suspected PE: Status post remedisvir, tocilizumab [3 doses], meropenem 10 days, vancomycin 8 days. -Given that patient did not have any further bowel movements the C. difficile testing was never sent. Will DC her by mouth vancomycin as there are no further loose bowel movements - Patient is now on Vapotherm 20 L/90% FiO2 this a.m. we will gradually try to decrease her oxygen and see how she tolerates. 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 - Highly recommend patient to continue using CPAP at bedtime which can help with her breathing. - Encourage patient to use incentive spirometry/Acapella. Hematuria: -Patient has clear urine than yesterday, but still has small blood clots in the urine. -We still think one of the reason why she is having clots and blood in her urine is because of the Palacios trauma. - Will continue to hold her Lovenox. - Urine Culture was done and it was negative. Anxiety: - Will continue Xanax 0.5 mg every 8 hours. - Patient was encouraged to take slow deep breaths to her nose and output mouth and to focus on her breathing to help her decrease her anxiety.. Transient atrial fibrillation: - And is now in sinus rhythm. - And had a transient episode of atrial fibrillation when she was intubated and prior to intubation and the rate was well controlled with diltiazem and will con tinue that. - Will hold off on anticoagulation given the patient is having hematuria. Post covid interstitial pneumonitis: - Will continue methylprednisone. - Will hold Lovenox 60 mg every 12 hours given the patient is having hematuria. - Encourage patient to use incentive spirometry/Acapella Obstructive sleep apnea: -Patient use CPAP at home for this condition. - Patient is requiring BiPAP at hospital given her hypoxia. -We highly recommend patient to use BiPAP at bedtime. Physical deconditioning: - Day 29 of hospitalization, ICU day 15,s/p intubation for 6 days. - Encourage patient to increase her oral intake both liquids and solid foods. - Physical therapy is working with her. Incarcerated incisional hernia. - Status post surgery on 09/02/2020. - Denies having any nausea, vomiting able to tolerate oral intake and is having regular bowel movements. GI prophylaxis: Will continue famotidine. DVT prophylaxis: -Will hold off on Lovenox 60 mg every 12 hours for now due to hematuria. - Teds and sequentials. VS,Fishbone, I+O VS, Fishbone, I+O Laboratory Tests 10/02/20 04:37 Vital Signs Date Time Temp Pulse Resp B/P (MAP) Pulse Ox O2 Delivery O2 Flow Rate FiO2 10/02/20 16:00 15.0 10/02/20 13:00 112 91 HVNI-Vapotherm 100 10/02/20 12:36 133/75 10/02/20 08:11 97.6 24 I&O- Last 24 Hours up to 6 AM 10/02/20 06:00 Intake Total 1160 ml Output Total 1140 ml Balance 20 ml GME ATTESTATION GME ATTESTATION My faculty preceptor for this patient encounter was physically present during the encounter and was fully available. All aspects of the patient interview, examination, medical decision making process, and medical care plan development were reviewed and approved by the faculty preceptor. The faculty preceptor is aware and concurs with the plan as stated in the body of this note and will attest to such by his/her cosignature. ATTENDING NOTE I personally examined Ms. Kumari and discussed her findings, studies and plan with the resident physician as noted above. Teri Martinez MD October 02, 2020 16:29 FELIPE HOLLY MD October 03, 2020 07:28
[2020-10-02] MEDS: MAALOX 30 ML SUSP *UDC PO PRN (17:57)
[2020-10-02 20:00] VITALS: BP 123/75
[2020-10-02] MEDS: CALCIUM CARBONATE 500 MG CHEW U/D PO PRN (21:15)
[2020-10-02] MEDS: NORCO, ANEXSIA 5/325MG TABLET (HYDROcodone/ACETAMINOPHEN) PO PRN (21:17)
[2020-10-02] MEDS: PANTOPRAZOLE 40MG TAB (PROTONIX) PO SCH (21:17)
[2020-10-02] MEDS: SERTRALINE HCL 25 MG TABLET PO SCH (21:17)
[2020-10-03] VITALS (7 sets, daily range): BP systolic 126–147; BP diastolic 66–82
[2020-10-03 05:40] LABS: BLOOD UREA NITROGEN 31 MG/DL (7-18); CALCIUM LEVEL 8.9 MG/DL (8.5-10.1); CARBON DIOXIDE LEVEL 34 MEQ/L (21-32); CHLORIDE LEVEL 104 MEQ/L (98-107); CREATININE FOR GFR 0.26 MG/DL (0.55-1.30); GLOMERULAR FILTRATION RATE > 60.0 (>51); GLUCOSE, FASTING 104 MG/DL (70-100); POTASSIUM SERUM 4.1 MEQ/L (3.5-5.1); SODIUM LEVEL 140 MEQ/L (136-145)
[2020-10-03] MEDS: SODIUM CHLORIDE 0.9% INJ 10 ML SYR IV SCH ×2 (06:25→16:59)
[2020-10-03] MEDS: ALPRAZolam 0.5 MG TAB PO SCH ×3 (06:26→21:00)
[2020-10-03] MEDS: HumaLOG INSULIN (NovoLOG) PER UNIT SC SCH ×4 (07:52→21:00)
[2020-10-03] MEDS: guaiFENesin ER 600 MG TAB PO SCH ×2 (07:53→20:47)
[2020-10-03] MEDS: PANTOPRAZOLE 40MG TAB (PROTONIX) PO SCH ×2 (07:54→20:48)
[2020-10-03] MEDS: IPRATROPIUM 0.5MG/ALBUTEROL 2.5MG INH SOL UD 3ML (DUONEB) NEB SCH ×4 (08:03→19:29)
--- NOTE | 2020-10-03 09:59 | IPN ---
PROGRESS NOTE DATE: 10/03/2020 SUBJECTIVE: I again attended Senia Kumari here in the intensive care unit. The patient has been examined, chart reviewed, and I spoke at length with the nurse at the bedside. She states she is more comfortable today. Her biggest complaint is fatigue. OBJECTIVE: VITAL SIGNS: T-max overnight 98.0, blood pressure 130 to 140 systolic, heart rate generally in the 90s to low 100s with a sinus mechanism. Respiratory rate generally between 20 and 26 without accessory muscle use. She remains on and off of her CPAP. Oxygen bleeding with that has been able to be weaned to 12 L. She is on and off of Vapotherm with FiO2s down to 80% with a 20 L flow rate and currently saturation 94%. GENERAL: She is awake, alert, and appropriate. Voice is weak, but she is quite comfortable having just finished breakfast. HEENT: Otherwise normocephalic, atraumatic. Pupils react. Neck supple. Trachea is in the midline. Membranes are mildly dry. CHEST: Clear anteriorly with symmetric expansion. There are some opening crackles dependently, but no convincing egophony. No wheezes or rubs. CARDIAC: Distant, but regular. Peripheral pulses palpable. Trace edema. ABDOMEN: Soft, nontender, and obese with active bowel sounds. No convincing organomegaly or masses. EXTREMITIES: Show no obvious cyanosis or clubbing. NEUROLOGIC: She is awake, alert, and appropriate. PSYCHIATRIC: Shows normal mood and affect. LABORATORY DATA: Most recent laboratories show sodium 140, K 4.1, chloride 104, CO2 of 34, BUN 31, creatinine 0.26, glucose of 104. Repeat inflammatory markers are from several days ago. IMPRESSION: 1. Hypoxemic respiratory failure, multifactorial. 2. Post COVID pneumonia with suspected fibrotic reaction. 3. Obstructive sleep apnea (JAQUELINE). 4. Previous atrial fibrillation. RECOMMENDATIONS: At this point, we will continue her on and off of her CPAP. She has been much more compliant and actually just asked to go back on so she could take a nap. I believe this is a huge stride forward in the right direction. Certainly we need to have physical therapy begin working with her for overall strength and conditioning. She is tolerating a diet. Her GI status appears to be reasonable at this point. She is off oral vancomycin and has had no further diarrhea. White blood cell count remains in and around 11. We will likely being weaning her Medrol tomorrow. At this point, she continues to make slow progress and we will move towards strengthening and weaning back some of her other medications. She is off all antibiotics. The issue at hand will be slow weaning of her steroids. I did discuss with her that her prognosis remains guarded. We will proceed as outlined above. Further recommendations will be made in the progress record as new information becomes available.
--- NOTE | 2020-10-03 13:04 | IPNPDOC ---
Text Note Date of Service The patient was seen on 10/03/20. NOTE Subjective: Hospital day 32, ICU day 18, first tested positive for covid on 08/31/2020 -Currently on Vapotherm at 20 L/80% FiO2. -Reports that she feels tired today but otherwise denies headache, chest pain, abdominal pain. Objective: Vitals: see below Gen. appearance: Patient is AO 3, patient is on Vapotherm when I went in, saturating 92%, NAD. Ill appearing, obese Cardiac: Low grade tachycardic, regular rate and rhythm, S1 and S2 normal, no murmurs appreciated. Respiratory: Very poor inspiratory effort, diminished breath sounds bilaterally throughout the lung, did not appreciate any wheezes or rhonchi. Abdomen: Abdomen is soft, positive bowel sounds in all 4 quadrants, no tenderness to palpation. Skin: Erythematous papular intertrigo with nystatin powder applied over in her inguinal skin fold. Extremities: Patient has teds and sequentials, no edema : Patient has Palacios in place, her urine looks clear Labs: Reviewed. Stable Imaging: Chest x-ray done on 09/01/2020: Reported as: No acute cardiopulmonary processes appreciated. No focal consolidation or air space disease noted. CT abdomen/pelvis with IV contrast: 09/01/2020: Reported as: Inferior anterior ab dominal wall hernia contains inflamed fat, with moderately dilated small bowel leading into the hernial sac and a transition point identified consistent with small bowel obstruction. Incarceration and strangulation cannot be excluded. CTA done on 09/06/2020: Reported as: Suboptimal examination secondary to bolus timing for pulmonary embolism study. However no filling defects in major pulmonary arteries. Bilateral diffuse groundglass opacities. Finding consistent with patient's history of covid 19 pneumonia. Chest x-ray done on 09/06/2020: Reported as: New diffuse bilateral infiltrates left greater than right. Chest x-ray done on 09/09/2020: Reported as: Similar but less focal and more diffuse lung opacities did Chest x-ray on 09/15/2020: Reported as: worsening bilateral infiltrates, now obscuring the hemidiaphragm bilaterally, suspected bilateral pleural effusions. Extensive alveolar edema/infiltrate back to progress since 09/09/2020. Chest x-ray done on 09/16/2020: Reported as: Extensive alveolar lung disease bilaterally and diffusely. Chest x-ray done on 09/17/2020: Reported as: Diffuse bilateral air space disease without significant change from prior examination. Echocardiogram done on 09/17/2020: Reported as: Normal left ventricular internal dimensions and wall thickening. Normal regional left ventricular wall motion. Hyperdynamic left ventricular systolic function. LVEF of 75% by visual estimate. LV diastolic function cannot be advocated due to mind in the setting of atrial fibrillation with rapid ventricle response. 2. Suggestive of moderate elevation of pulmonary artery systolic pressure the low 40s. Normal right ventricle size and systolic function. Appears mild right ventricle hypertrophy. Atrium appears normal in size. No vegetations. No pericardial effusion. Mild IVC Lipitor are suggestive of elevated central venous pressure at least 20 mmHg. Chest x-ray done on 09/18/2020: Reported as: No radiographic changes in the lung field, diffuse alveolar edema pattern. Chest x-ray done on 09/19/2020: Reported as: Extensive alveolar opacity/pulmonary edema pattern persistent. Some improvement noted since 09/17/2020. Chest x-ray done on 09/20/2020: Reported as: Lung nuñez showed gradual improvement. Chest x-ray done on 09/21/2020: Reported as: Lower lobe opacities similar to prior examination. Chest x-ray done on 09/22/2020: Reported as: Perihilar and lower lobe opacities similar to prior examination. Chest x-ray done on 09/23/2020: Reported as: Continued lower lobe opacities appear improved. Chest x-ray done on 09/25/2020: Reported as: No significant change from prior examination. Chest x-ray done on 09/28/2020: Reported as: Bilateral interstitial infiltrates left perihilar region and right base, persistent findings similar to September 25 Chest x-ray done on 10/01/2019: Reported as: Interstitial infiltrates persistent bilaterally radiographically unchanged. Assessment: 50-year-old W who initially presented to ED with bowel obstruction had bowel resection surgery on 09/02/2020, covid positive on 08/31/2020, was initially asymptomatic for covid for a couple of days after the surgery but later started having covid symptoms with shortness of breath until she required intubation on 09/18 and was extubated on 09/23 currently still on Vapotherm. Plan: Hypoxic respiratory failure secondary to ARDS i/s/o covid-19 PNA /pulmonary artery hypertension/suspected PE: -s/p remedisvir, tocilizumab [3 doses], meropenem 10 days, vancomycin 8 days. - Patient is now on Vapotherm 20 L/80% FiO2 this a.m. with ongoing gradual weaning of oxygen. 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 - Continue using CPAP at bedtime. - Encourage patient to use incentive spirometry/Acapella. Hematuria: resolving - Urine Culture was done and it was negative. - Has improved but not resolved completely, still holding AC Anxiety: - Will continue Xanax 0.5 mg every 8 hours. Transient atrial fibrillation: - And is now in sinus rhythm. - And had a transient episode of atrial fibrillation when she was intubated and prior to intubation and the rate was well controlled with diltiazem and will continue that. - Will hold off on anticoagulation given the patient is having hematuria. Post covid interstitial pneumonitis: - Will continue methylprednisone. - Will hold Lovenox 60 mg every 12 hours given the patient is having hematuria. - Encourage patient to use incentive spirometry/Acapella Obstructive sleep apnea: -CPAP at night at PEEP of 8 with O2 Physical deconditioning: - Day 32 of hospitalization, ICU day 18, s/p intubation for 6 days. - Encourage patient to increase her oral intake both liquids and solid foods. - Physical therapy is ordered Incarcerated incisional hernia. - Status post surgery on 09/02/2020. - Denies having any nausea, vomiting and able to tolerate oral intake and is having regular bowel movements. GI prophylaxis: - Switch to PPI BID from daily famotidine while on prolonged steroids DVT prophylaxis: - Holding Lovenox 60 mg every 12 hours for now due to hematuria. - Teds and sequentials. VS,Fishbone, I+O VS, Fishbone, I+O Laboratory Tests 10/03/20 05:08 Vital Signs Date Time Temp Pulse Resp B/P (MAP) Pulse Ox O2 Delivery O2 Flow Rate FiO2 10/03/20 08:30 100 94 HVNI-Vapotherm 20.0 80 10/03/20 08:00 139/80 (99) 10/03/20 04:00 98.0 10/03/20 00:00 24 I&O- Last 24 Hours up to 6 AM 10/03/20 06:00 Intake Total 1465 ml Output Total 1085 ml Balance 380 ml FELIPE HOLLY MD October 03, 2020 13:04
[2020-10-03] MEDS: CALCIUM CARBONATE 500 MG CHEW U/D PO PRN (20:46)
[2020-10-03] MEDS: SERTRALINE HCL 25 MG TABLET PO SCH (20:47)
[2020-10-03] MEDS: NORCO, ANEXSIA 5/325MG TABLET (HYDROcodone/ACETAMINOPHEN) PO PRN ×2 (20:48→23:14)
[2020-10-04] VITALS: BP 132/69
[2020-10-04 04:00] VITALS: BP 144/77
[2020-10-04 05:27] LABS: MEAN CORPUSCULAR HGB CONC 32.6 g/dl (32.0-36.5); MEAN CORPUSCULAR VOLUME 95.1 fl (80.0-96.0); PLATELET COUNT, AUTOMATED 217 10^3/uL (150-450); RED BLOOD COUNT 4.52 10^6/uL (4.00-5.40); WHITE BLOOD COUNT 12.4 10^3/uL (4.0-10.0)
[2020-10-04] MEDS: ALPRAZolam 0.5 MG TAB PO SCH ×3 (06:00→21:13)
[2020-10-04 06:02] LABS: BLOOD UREA NITROGEN 28 MG/DL (7-18); CALCIUM LEVEL 9.9 MG/DL (8.5-10.1); CARBON DIOXIDE LEVEL 32 MEQ/L (21-32); CHLORIDE LEVEL 103 MEQ/L (98-107); CREATININE FOR GFR 0.22 MG/DL (0.55-1.30); GLOMERULAR FILTRATION RATE > 60.0 (>51); GLUCOSE, FASTING 103 MG/DL (70-100); SODIUM LEVEL 140 MEQ/L (136-145)
[2020-10-04] MEDS: SODIUM CHLORIDE 0.9% INJ 10 ML SYR IV SCH ×2 (06:06→17:14)
[2020-10-04] MEDS: IPRATROPIUM 0.5MG/ALBUTEROL 2.5MG INH SOL UD 3ML (DUONEB) NEB SCH ×4 (07:34→19:32)
[2020-10-04 08:00] VITALS: BP 131/64
[2020-10-04] MEDS: guaiFENesin ER 600 MG TAB PO SCH ×2 (08:33→21:12)
[2020-10-04] MEDS: HumaLOG INSULIN (NovoLOG) PER UNIT SC SCH ×4 (08:33→20:51)
[2020-10-04] MEDS: PANTOPRAZOLE 40MG TAB (PROTONIX) PO SCH ×2 (08:34→21:13)
[2020-10-04 10:13] LABS: FERRITIN 509 NG/ML (8-252)
--- NOTE | 2020-10-04 10:44 | IPN ---
PROGRESS NOTE DATE: 10/04/2020 SUBJECTIVE: I again attended Senia Kumari here in the intensive care unit. The patient has been examined, chart reviewed, and I spoke at length with the nurse at the bedside. VITAL SIGNS: T-max overnight 97.0. Blood pressure 130s to 140s systolic, heart rate 90 to low 100s with a sinus mechanism. Respiratory rate generally in the 20s without accessory muscle use. Input and output midnight to midnight 1,420 mL in with 1,075 mL out. Medication list has been reviewed. She remains on ulcer and DVT prophylaxis. She remains on pain medications. Her Diltiazem is unchanged. She remains on Medrol 16 mg daily. She is off antibiotics. Most recent laboratories show a white blood cell count down to 12.4, hemoglobin 14.0, platelet count 217,000. Sodium 140, K 4.0, chloride 103, CO2 32, BUN 28, creatinine 0.22. Glucose of 103. Inflammatory markers are pending. OBJECTIVE: GENERAL: She is comfortable today. No new complaints. HEENT: Pupils react. Sclerae are anicteric. Trachea is in the midline. CHEST: Clear anteriorly. Expansion although diminished is symmetric. There are some dependent opening crackles but no rubs or wheezes. CARDIAC: Regular, distant. Peripheral pulses palpable. No edema. ABDOMEN: Obese, soft with active bowel sounds. No convincing organomegaly or masses. EXTREMITIES: Show no obvious cyanosis or clubbing. NEUROLOGIC: She is awake, alert, and appropriate. PSYCHIATRIC: She has a normal mood and affect. IMPRESSION: 1. Hypoxemic respiratory failure, multifactorial. 2. Post COVID pneumonia with suspected secondary bacterial infection/fibrotic reaction. 3. Obstructive sleep apnea (JAQUELINE). 4. Previous atrial fibrillation. RECOMMENDATIONS: At this point, she is doing a little better regarding her oxygenation status. She is still on and off her CPAP, especially with bedtime and naps. We will recheck her inflammatory markers. I will begin weaning her dose of Medrol today. My hope is that we are beginning to turn the corner for her. She is tolerating enteral diet. Physical therapy was asked to become involved in her care yesterday. At this point, we will proceed as outlined above. She will follow closely while she is here in the hospital. Further recommendations will be made in the progress record as new information becomes available as she still has a very guarded prognosis in view of her multi-organ dysfunction.
[2020-10-04 12:00] VITALS: BP 130/78
[2020-10-04] MEDS: ENOXAPARIN 40MG/0.4ML SYRINGE (J1650 PER 10MG) SC SCH (12:43)
[2020-10-04 16:00] VITALS: BP 122/66
--- NOTE | 2020-10-04 16:04 | IPNPDOC ---
Date Seen The patient was seen on 10/04/20. Progress Note SUBJECTIVE: Patient was seen and examined this morning. No adverse events reported overnight. Patient currently has no new complaints. She is continued on high flow nasal cannula. Planned to work with physical therapy today OBJECTIVE PHYSICAL EXAMINATION: VITAL SIGNS: Please see below. GENERAL: Awake, alert, and oriented. Appears in no acute distress. Lying comfortably in bed. HEENT: Atraumatic, normocephalic. Eyes are nonicteric. Trachea is midline. Mucous membranes are pink and moist CARDIOVASCULAR: Normal S1, S2. Tachycardic rate. Regular rate and rhythm. No clicks, rubs, or murmurs. No JVD RESPIRATORY: Diminished breath sounds throughout with some scattered coarse breath sounds. No wheezing. Symmetric chest expansion. No accessory muscle use ABDOMINAL: Morbidly obese. Soft, nondistended. Nontender. Normoactive bowel sounds throughout EXTREMITIES: No edema. Full and equal pulses in bilateral upper and lower extremities NEUROLOGICAL: No focal neurological deficits. PSYCHOLOGICAL: Mood and affect appear appropriate LABORATORY DATA, IMAGING STUDIES, MICROBIOLOGY: Please see below. Echocardiogram: DATE OF PROCEDURE: 09/17/2020 Age: 50 Gender: Female Height: 173 cm Weight: 125 kg REFERRING PHYSICIAN: Marce Kumar MD. INDICATION: Sepsis. MEASUREMENTS: 2D Measurements: Left atrium 3.3 cm Aortic root 3.0 cm Inferior vena cava 1.07 cm Posterior wall 0.98 cm Left ventricle diastole 3.7 cm Aortic annulus 2.1 cm Inferior vena cava 2.1 cm with marked reduction of respiratory variation Doppler Measurements: No aortic stenosis or regurgitation No mitral stenosis or regurgitation No tricuspid or pulmonic regurgitation seen Pulmonary artery acceleration time 82 msec suggestive of pulmonary artery systolic pressure in the low 40s. DESCRIPTION: Rhythm was atrial fibrillation with rapid ventricular response. This was a moderately technically difficult echocardiogram. This was a 2D, M- mode, color flow Doppler, and pulsed wave Doppler examination including mitral annular tissue Doppler. No pericardial effusion. CONCLUSIONS: 1. Normal left ventricle internal dimensions and wall thickness. Normal regional LV wall motion. Hyperdynamic LV systolic function. LVEF 75% by visual estimate. LV diastolic function could not be adequately determined in the setting of atrial fibrillation with rapid ventricular response. 2. Suggestive of moderate elevation of pulmonary artery systolic pressure to bein the low 40s. Normal right ventricle size and systolic function. Appearance ofmild right ventricular hypertrophy. 3. Atrium appeared normal in size. 4. No vegetations. 5. No pericardial effusion. 6. Mild inferior vena cava plethora suggestive of elevated central venous pressure of at least 20 mmHg. The results of this study were communicated by telephone to Dr. Marce Chan. DVT prophylaxis ordered?: Lovenox ASSESSMENT AND PLAN: Patient is a 50 year old female who presented to [facility] ER with a small bowel obstruction status post bowel resection surgery on 09/02/2020, if any, positive on 332 and 21. The patient was asymptomatic with Covid-19 after her surgery but then developed shortness of breath and subsequently developed hypoxemic respiratory failure requiring intubation. Patient was intubated on 09/18/2020 and extubated on 09/23/2020. The patient's been transitioned to high flow nasal time where she remains. PROBLEMS: 1. Acute hypoxemic respiratory failure 2/2 ARDS 2/2 COVID-19 -Patient developed respiratory failure likely secondary to her COVID-19. Given her rate of decline suspect ARDS. She is s/p remdesivir, tocilizumab, meropenem, and vancomycin. 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 She is continued on methylprednisone and is being followed by Pulmonary Medicine with plans to wean her off of steroid. -Continuing to require high flow nasal cannula with FiO2 of 80%. She is using CPAP at night and with naps. Incentive spirometer and acapella ordered. -Patient encouraged to work with physical therapy. -Will continue to wean O2 and steroids 2. Hematuria -Patient has developed hematuria previously. She was started on anticoagulation for suspected PE when she developed hypoxia and tachycardia. Her urine has cleared up. Will start Lovenox 40mg. Continue to monitor for bleeding 3. Sinus Tachycardia -Patient currently in sinus tachycardia. Likely secondary to acute illness and deconditioning. Will continue to monitor. 4. Transient Atrial Fibrillation Patient noted to be in atrial fibrillation when she had first declined. This was likely secondary to hypoxia. She has remained in sinus rhythm since that time. -Will continue to monitor 5. JAQUELINE -Continue CPAP 6. Incarcerated Incisional Hernia -s/p surgical correction on 09/02/2020 -Well healing 7. Physical deconditioning/debility -Patient has been hospitalized for over 1 month with minimal activity. -Physical therapy ordered and patient encouraged to work with PT. -Likely will need rehab once medically improved 8. GI prophylaxis -Protonix 9. DVT Prophylaxis -Lovenox started today DISPOSITION: Patient remains hypoxic and requiring high flow nasal cannula. Plan to start PT today. Will likely need rehab once medically cleared VS, I&O, 24H, Fishbone Vital Signs/I&O Vital Signs Date Time Temp Pulse Resp B/P (MAP) Pulse Ox O2 Delivery O2 Flow Rate FiO2 10/04/20 12:42 109 131/64 10/04/20 12:00 20.0 80 10/04/20 08:00 96.9 22 91 HVNI-Vapotherm I&O- Last 24 Hours up to 6 AM 10/04/20 06:00 Intake Total 1400 ml Output Total 930 ml Balance 470 ml Laboratory Data 24H LABS Laboratory Tests 2 10/03/20 16:48: Bedside Glucose (Misc Panel) 154H 10/03/20 20:53: Bedside Glucose (Misc Panel) 155H 10/04/20 05:14: Nucleated Red Blood Cells % (auto) 0.0, Anion Gap 5L, Glomerular Filtration Rate > 60.0, Calcium Level 9.9, Ferritin 509H 10/04/20 09:31: D-Dimer, Quantitative 1948.58H 10/04/20 11:52: Bedside Glucose (Misc Panel) 229H CBC/BMP Laboratory Tests 10/04/20 05:14 Microbiology Microbiology 09/27/20 Urine Culture - Final, Complete GME ATTESTATION GME ATTESTATION My faculty preceptor for this patient encounter was physically present during the encounter and was fully available. All aspects of the patient interview, examination, medical decision making process, and medical care plan development were reviewed and approved by the faculty preceptor. The faculty preceptor is aware and concurs with the plan as stated in the body of this note and will attest to such by his/her cosignature. ATTENDING NOTE I, Cecil Apodaca MD, have independently examined this patient and performed my own physical exam, as well as reviewed the documentation and edited where necessary. I have discussed in detail with the resident / student the findings and plan of treatment as documented by the resident / student and edited their note. I agree with their findings and treatment plan and have edited their documentation. SUNDEEP ESCOBAR DO October 04, 2020 16:04 CECIL APODACA MD October 15, 2020 15:35
[2020-10-04 20:00] VITALS: BP 119/65
[2020-10-04] MEDS: SERTRALINE HCL 25 MG TABLET PO SCH (21:13)
[2020-10-05] VITALS (7 sets, daily range): BP systolic 121–133; BP diastolic 62–84
[2020-10-05] MEDS: NORCO, ANEXSIA 5/325MG TABLET (HYDROcodone/ACETAMINOPHEN) PO PRN ×2 (00:12→22:14)
[2020-10-05 05:39] LABS: HEMATOCRIT 42.4 % (36.0-47.0); HEMOGLOBIN 13.9 g/dl (12.0-15.5); MEAN CORPUSCULAR HGB CONC 32.8 g/dl (32.0-36.5); MEAN CORPUSCULAR VOLUME 94.6 fl (80.0-96.0); PLATELET COUNT, AUTOMATED 203 10^3/uL (150-450); RED BLOOD COUNT 4.48 10^6/uL (4.00-5.40); WHITE BLOOD COUNT 11.7 10^3/uL (4.0-10.0)
[2020-10-05 05:51] LABS: BLOOD UREA NITROGEN 23 MG/DL (7-18); CALCIUM LEVEL 9.6 MG/DL (8.5-10.1); CARBON DIOXIDE LEVEL 32 MEQ/L (21-32); CHLORIDE LEVEL 102 MEQ/L (98-107); CREATININE FOR GFR 0.24 MG/DL (0.55-1.30); GLOMERULAR FILTRATION RATE > 60.0 (>51); GLUCOSE, FASTING 108 MG/DL (70-100); POTASSIUM SERUM 3.8 MEQ/L (3.5-5.1); SODIUM LEVEL 140 MEQ/L (136-145)
[2020-10-05] MEDS: SODIUM CHLORIDE 0.9% INJ 10 ML SYR IV SCH ×2 (06:00→17:59)
[2020-10-05] MEDS: ALPRAZolam 0.5 MG TAB PO SCH ×4 (06:19→22:14)
[2020-10-05] MEDS: IPRATROPIUM 0.5MG/ALBUTEROL 2.5MG INH SOL UD 3ML (DUONEB) NEB SCH ×4 (08:07→19:39)
[2020-10-05] MEDS: ENOXAPARIN 40MG/0.4ML SYRINGE (J1650 PER 10MG) SC SCH (08:46)
[2020-10-05] MEDS: HumaLOG INSULIN (NovoLOG) PER UNIT SC SCH ×4 (08:46→20:23)
[2020-10-05] MEDS: guaiFENesin ER 600 MG TAB PO SCH ×2 (08:48→20:24)
[2020-10-05] MEDS: PANTOPRAZOLE 40MG TAB (PROTONIX) PO SCH ×2 (08:48→20:24)
--- NOTE | 2020-10-05 10:46 | IPN ---
PROGRESS NOTE DATE: 10/05/2020 SUBJECTIVE: I again attended Ms. Kumari here in the Intensive Care Unit. The patient has been examined and chart reviewed. I spoke at length with the nurse at the bedside. T-max overnight 98 degrees, blood pressure 120 to 130s, heart rate generally 90s to low 100s with a sinus mechanism, respiratory rate generally 20 to 26 without accessory muscle use. She desaturates much less on Vapotherm and CPAP than she did the last several days. Most of her recent laboratories showed white blood cell count down to 11.7, hemoglobin 13.9, platelet count 203,000. No differential today. Sodium 140, potassium 3.8, chloride 102, CO2 32, BUN 23, creatinine 0.24. Ferritin yesterday down to 509, down from 893 several days prior. D-Dimer yesterday was 1948, down a little bit from prior at 2215. She remains on full-dose Lovenox. Medrol dropped to 12 mg yesterday. OBJECTIVE: GENERAL: On exam, she is fairly comfortable, weak appearing. VITAL SIGNS: Vital signs as outlined above. HEENT: Normocephalic, atraumatic. Pupils reactive. Sclera clear. She does have a healing sore on her lip as well as a small healing sore on the bridge of her nose. Trachea is in the midline. CHEST: Clear anteriorly. There are some fine dependent crackles that do improve with deep inspiration. Rare rhonchi that do generally clear with cough. No other focal adventitious breath sounds are identified. CARDIAC: Distant but regular. Peripheral pulses palpable. No obvious edema. ABDOMEN: Obese, soft with active bowel sounds. No convincing organomegaly or masses. EXTREMITIES: No cyanosis or clubbing. NEUROLOGIC: She is awake, alert, and appropriate. PSYCHIATRIC: She has a normal mood and affect. Pulse oximetry is as above. IMPRESSION: 1. Hypoxemic respiratory failure, multifactorial. 2. Post COVID pneumonia with question of fibrotic reaction. 3. Underlying JAQUELINE. At this point we will continue to work with her regarding Physical Therapy. We will slowly wean her Medrol. Her oxygen requirements are diminishing some and hopefully within the next several days she will be able to graduate out of the Intensive Care Unit. I had a long discussion again with her this morning regarding the need to be very aggressive and cooperative with Physical Therapy. She has had a prolonged hospitalization and is very deconditioned. She has been doing very well in that regard. She is tolerating a diet. At this point, we will follow on an as needed basis. Further recommendations will be made in the progress records as new information becomes available.
[2020-10-05 10:58] LABS: MAGNESIUM LEVEL 2.1 MG/DL (1.8-2.4)
--- NOTE | 2020-10-05 14:27 | IPNPDOC ---
Date Seen The patient was seen on 10/05/20. Progress Note SUBJECTIVE: Patient was seen and examined this morning. Patient has no new complaints. She has worked with physical therapy yesterday although minimally. She denies any chest pain or worsening shortness of breath. She states that she feels weak. OBJECTIVE PHYSICAL EXAMINATION: VITAL SIGNS: Please see below. GENERAL: Awake, alert, and oriented. Appears in no acute distress. Lying comfortably in bed. HEENT: Atraumatic, normocephalic. Eyes are nonicteric. Trachea is midline. Mucous membranes are pink and moist CARDIOVASCULAR: Normal S1, S2. Tachycardic rate. Regular rate and rhythm. No cl icks, rubs, or murmurs. No JVD RESPIRATORY: Diminished breath sounds throughout. No wheezing. Symmetric chest expansion. No accessory muscle use ABDOMINAL: Morbidly obese. Soft, nondistended. Nontender. Normoactive bowel sounds throughout EXTREMITIES: No edema. Full and equal pulses in bilateral upper and lower extremities NEUROLOGICAL: No focal neurological deficits. PSYCHOLOGICAL: Mood and affect appear appropriate LABORATORY DATA, IMAGING STUDIES, MICROBIOLOGY: Please see below. DVT prophylaxis ordered?: Lovenox ASSESSMENT AND PLAN: Patient is a 50 year old female who presented to [facility] ER with a small bowel obstruction status post bowel resection surgery on 09/02/2020, if any, positive on 332 and 21. The patient was asymptomatic with Covid-19 after her surgery but then developed shortness of breath and subsequently developed hypoxemic respiratory failure requiring intubation. Patient was intubated on 09/18/2020 and extubated on 09/23/2020. The patient's been transitioned to high flow nasal time where she remains. PROBLEMS: 1. 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 She is continued on Medrol. Will continue to taper off of steroid. -Continuing to require high flow nasal cannula with FiO2 of 80%. She is using CPAP at night and with naps. Incentive spirometer and acapella ordered. -Patient encouraged to continue to work with physical therapy. -Will continue to wean O2 as tolerated 2. Hematuria -Has resolved. Will continue to monitor while she is on Lovenox 3. Oliguria -Patient has had decreased urine output today. Cr is not elevated. Although decreased urine output may preceed RAEGAN. She is not on any nephrotoxic agents. Will continue to monitor. She is tolerating PO intake 4. Sinus Tachycardia -Patient appears to be in sinus tachycardia. EKG demonstrating sinus rhythm. Patient did have an episode of atrial fibrillation previously likely secondary to her hypoxia. Given her tachycardia will try for better rate control. She is on Diltiazem 90 q6h for a total of 360mg. Will increase her dose to 120mg q6h for total of 480mg 5. Transient Atrial Fibrillation Patient noted to be in atrial fibrillation when she had first declined. This was likely secondary to hypoxia. She has remained in sinus rhythm since that time. -Will continue to monitor 6. JAQUELINE -Continue CPAP 7. Incarcerated Incisional Hernia -s/p surgical correction on 09/02/2020 -Well healing 8. Physical deconditioning/debility -Patient has been hospitalized for over 1 month with minimal activity. -Physical therapy ordered and patient encouraged to work with PT. -Likely will need rehab once medically improved 9. GI prophylaxis -Protonix 10. DVT Prophylaxis -Lovenox started today DISPOSITION: Patient remains hypoxic and requiring high flow nasal cannula. Will need continued rehab once medically improved. VS, I&O, 24H, Fishbone Vital Signs/I&O Vital Signs Date Time Temp Pulse Resp B/P (MAP) Pulse Ox O2 Delivery O2 Flow Rate FiO2 10/05/20 12:35 106 122/62 10/05/20 11:00 26 95 HVNI-Vapotherm 30.0 80 10/05/20 08:00 98.0 I&O- Last 24 Hours up to 6 AM 10/05/20 05:59 Intake Total 1080 ml Output Total 1025 ml Balance 55 ml Laboratory Data 24H LABS Laboratory Tests 2 10/04/20 17:02: Bedside Glucose (Misc Panel) 157H 10/04/20 19:34: Bedside Glucose (Misc Panel) 201H 10/05/20 05:05: Nucleated Red Blood Cells % (auto) 0.0, Anion Gap 6L, Glomerular Filtration Rate > 60.0, Calcium Level 9.6, Phosphorus Level 4.0, Magnesium Level 2.1 10/05/20 12:07: Bedside Glucose (Misc Panel) 140H CBC/BMP Laboratory Tests 10/05/20 05:05 Microbiology Microbiology 09/27/20 Urine Culture - Final, Complete GME ATTESTATION GME ATTESTATION My faculty preceptor for this patient encounter was physically present during the encounter and was fully available. All aspects of the patient interview, examination, medical decision making process, and medical care plan development were reviewed and approved by the faculty preceptor. The faculty preceptor is aware and concurs with the plan as stated in the body of this note and will attest to such by his/her cosignature. ATTENDING NOTE I, Cecil Carr MD, have independently examined this patient and performed my own physical exam, as well as reviewed the documentation and edited where necessary. I have discussed in detail with the resident / student the findings and plan of treatment as documented by the resident / student and edited their note. I agree with their findings and treatment plan and have edited their documentation. SUNDEEP ESCOBAR DO October 05, 2020 14:27 CECIL CARR MD October 15, 2020 15:37
[2020-10-05] MEDS: SERTRALINE HCL 25 MG TABLET PO SCH (20:24)
[2020-10-06] VITALS (9 sets, daily range): BP systolic 123–130; BP diastolic 69–79; O2SAT 88–89
[2020-10-06 05:29] LABS: HEMATOCRIT 44.8 % (36.0-47.0); HEMOGLOBIN 14.5 g/dl (12.0-15.5); MEAN CORPUSCULAR HEMOGLOBIN 30.8 pg (27.0-33.0); MEAN CORPUSCULAR HGB CONC 32.4 g/dl (32.0-36.5); MEAN CORPUSCULAR VOLUME 95.1 fl (80.0-96.0); PLATELET COUNT, AUTOMATED 238 10^3/uL (150-450); RED BLOOD COUNT 4.71 10^6/uL (4.00-5.40); WHITE BLOOD COUNT 13.8 10^3/uL (4.0-10.0)
[2020-10-06 05:45] LABS: BLOOD UREA NITROGEN 19 MG/DL (7-18); CALCIUM LEVEL 9.9 MG/DL (8.5-10.1); CARBON DIOXIDE LEVEL 31 MEQ/L (21-32); CHLORIDE LEVEL 103 MEQ/L (98-107); CREATININE FOR GFR 0.24 MG/DL (0.55-1.30); GLOMERULAR FILTRATION RATE > 60.0 (>51); GLUCOSE, FASTING 93 MG/DL (70-100); POTASSIUM SERUM 3.9 MEQ/L (3.5-5.1); SODIUM LEVEL 141 MEQ/L (136-145)
[2020-10-06] MEDS: ALPRAZolam 0.5 MG TAB PO SCH ×3 (06:14→21:10)
[2020-10-06] MEDS: SODIUM CHLORIDE 0.9% INJ 10 ML SYR IV SCH ×2 (06:15→17:51)
[2020-10-06] MEDS: HumaLOG INSULIN (NovoLOG) PER UNIT SC SCH ×4 (07:04→21:00)
[2020-10-06] MEDS: IPRATROPIUM 0.5MG/ALBUTEROL 2.5MG INH SOL UD 3ML (DUONEB) NEB SCH ×4 (07:34→19:56)
[2020-10-06] MEDS: ENOXAPARIN 40MG/0.4ML SYRINGE (J1650 PER 10MG) SC SCH (08:02)
[2020-10-06] MEDS: guaiFENesin ER 600 MG TAB PO SCH ×2 (08:03→21:10)
[2020-10-06] MEDS: PANTOPRAZOLE 40MG TAB (PROTONIX) PO SCH ×2 (08:03→21:10)
[2020-10-06] MEDS ORDERED: NS 500 ML IV ONE (11:20)
[2020-10-06] MEDS: METOPROLOL TART 12.5 MG PER 1/2 TAB PO SCH ×2 (12:04→21:09)
--- NOTE | 2020-10-06 13:07 | REP ---
INDICATION: hypoxia. COMPARISON: Comparison chest radiograph September 30, 2020 and September 28, 2020. TECHNIQUE: Portable upright AP chest radiograph. FINDINGS: Patient is status post lower cervical spine fusion. A right-sided PICC line remains in place with its tip in the expected location of superior vena cava. Monitoring electrodes are seen.. There is a diffuse pattern of interstitial lung disease most pronounced in the mid lung zones. There are air bronch ower g in visible in the left perihilar region. These findings are unchanged. There is heavier interstitial disease in the right perihilar region. This appears more prominent than on the prior study. Left hemidiaphragm remains elevated. Postoperative changes are seen in the left upper abdomen. IMPRESSION: Bilateral interstitial lung disease extensive pneumonia. More prominent opacity in the right perihilar and right upper lobe region today. Infiltrates on the left are unchanged.. <Electronically signed by Barney Rosado > 10/06/20 [id number]
--- NOTE | 2020-10-06 17:30 | IPNPDOC ---
Date Seen The patient was seen on 10/06/20. Progress Note SUBJECTIVE: Patient was seen and examined this morning. There have been no adverse events reported overnight. Patient has worked with physical therapy although minimally. She continues to become easily tired and is still with high oxygen requirements. Patients Navjot akhtar, who is her HCP was contacted today for an update. He was made aware that despite her improvement since extubation she has not made much improvement over the past couple days. Additionally, she has not been able to tolerate much activity without desaturations and tachycardia. Patients HCP and the patient had stated that the patient should remain FULL CODE. OBJECTIVE PHYSICAL EXAMINATION: VITAL SIGNS: Please see below. GENERAL: Awake, alert, and oriented. Appears in no acute distress. Lying comfortably in bed. HEENT: Atraumatic, normocephalic. Eyes are nonicteric. Trachea is midline. Mucous membranes are pink and moist. Weak voice/poor phonation CARDIOVASCULAR: Normal S1, S2. Tachycardic rate. Regular rate and rhythm. No clicks, rubs, or murmurs. No JVD RESPIRATORY: Diminished breath sounds throughout. Coarse breath sounds. No wheezing. Symmetric chest expansion. No accessory muscle use ABDOMINAL: Morbidly obese. Soft, nondistended. Nontender. Normoactive bowel sounds throughout EXTREMITIES: No edema. Full and equal pulses in bilateral upper and lower extremities NEUROLOGICAL: No focal neurological deficits. PSYCHOLOGICAL: Mood and affect appear appropriate LABORATORY DATA, IMAGING STUDIES, MICROBIOLOGY: Please see below. Echocardiogram: pending DVT prophylaxis ordered?: Lovenox ASSESSMENT AND PLAN: Patient is a 50 year old female who presented to [facility] ER with a small bowel obstruction status post bowel resection surgery on 09/02/2020, if any, positive on 332 and 21. The patient was asymptomatic with Covid-19 after her surgery but then developed shortness of breath and subsequently developed hypoxemic respiratory failure requiring intubation. Patient was intubated on 09/18/2020 and extubated on 09/23/2020. The patient's been transitioned to high flow nasal cannula during the day with CPAP at night PROBLEMS: 1. 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 She is continued on Medrol. Will continue to taper off of steroid. -She is continuing to require high levels of supplemental oxygen. She has desaturations down to the 70's with minimal movement. Unclear whether her hypoxia is purely 2/2 COVID-19. Will order a chest x-ray. Additionally will order an echocardiogram. If she has right ventricular strain then may consider PE given her hypoxia and tachycardia. Will increase lovenox to 50mg BID today. Patient encouraged to continue to Incentive spirometry -Patient encouraged to continue to work with physical therapy. -Will continue to wean O2 as tolerated 2. Hematuria -Has resolved. Will continue to monitor while she is on Lovenox 3. Sinus Tachycardia -Patient continues to be in sinus tachycardia. Likely driven by her hypoxia. Cardiezem was increased to 120 q6h yesterday. Likely high adrenergic state given her hypoxia and deconditioning. Will try transitioning to Lopressor. Will reduce cardizem to 90 q6h and start Lopressor 12.5 BID. Additionally patient appears sl ightly dry today. She does have poor oral intake due to debility. Will give a 500cc bolus. Depending on her oral intake she may require more fluids -Echocardiogram has been ordered 4. Transient Atrial Fibrillation Patient noted to be in atrial fibrillation when she had first declined. This was likely secondary to hypoxia. She has remained in sinus rhythm since that time. -Will continue to monitor 5. JAQUEILNE -Continue CPAP 6. Incarcerated Incisional Hernia -s/p surgical correction on 09/02/2020 -Well healing 7. Physical deconditioning/debility -Patient has been hospitalized for over 1 month with minimal activity. -Physical therapy ordered and patient encouraged to work with PT. -Likely will need rehab once medically improved 9. GI prophylaxis -Protonix 10. DVT Prophylaxis -Lovenox DISPOSITION: Patient remains with high oxygen requirements. [facility]. Given her current clinical status she does have a risk of decompensation. The patient and her health care proxy wish to remain FULL CODE. Patients Navjot akhtar was made aware of the plan. All questions and concerns were answered VS, I&O, 24H, Fishbone Vital Signs/I&O Vital Signs Date Time Temp Pulse Resp B/P (MAP) Pulse Ox O2 Delivery O2 Flow Rate FiO2 10/06/20 12:45 89 BIPAP/CPAP 12.0 10/06/20 12:04 114 125/71 10/06/20 12:00 100 10/06/20 06:15 27 10/06/20 04:00 98.3 I&O- Last 24 Hours up to 6 AM 10/06/20 06:00 Intake Total 1500 ml Output Total 1130 ml Balance 370 ml Laboratory Data 24H LABS Laboratory Tests 2 10/05/20 16:56: Bedside Glucose (Misc Panel) 178H 10/05/20 20:22: Bedside Glucose (Misc Panel) 147H 10/06/20 05:15: Nucleated Red Blood Cells % (auto) 0.1H, Anion Gap 7L, Glomerular Filtration Rate > 60.0, Calcium Level 9.9 10/06/20 12:02: Bedside Glucose (Misc Panel) 146H CBC/BMP Laboratory Tests 10/06/20 05:15 Microbiology Microbiology 09/27/20 Urine Culture - Final, Complete GME ATTESTATION GME ATTESTATION My faculty preceptor for this patient encounter was physically present during the encounter and was fully available. All aspects of the patient interview, examination, medical decision making process, and medical care plan development were reviewed and approved by the faculty preceptor. The faculty preceptor is aware and concurs with the plan as stated in the body of this note and will attest to such by his/her cosignature. ATTENDING NOTE I, Cecil Carr MD, have independently examined this patient and performed my own physical exam, as well as reviewed the documentation and edited where necessary. I have discussed in detail with the resident / student the findings and plan of treatment as documented by the resident / student and edited their note. I agree with their findings and treatment plan and have edited their documentation. USNDEEP ESCOBAR DO October 06, 2020 17:30 CECIL CARR MD October 15, 2020 15:49
[2020-10-06] MEDS: ENOXAPARIN 60MG/0.6ML SYRINGE (J1650 PER 10MG) SC SCH (21:09)
[2020-10-06] MEDS: SERTRALINE HCL 25 MG TABLET PO SCH (21:10)
[2020-10-06] MEDS: CALCIUM CARBONATE 500 MG CHEW U/D PO PRN (23:34)
[2020-10-07] VITALS (7 sets, daily range): BP systolic 112–137; BP diastolic 60–81
[2020-10-07] MEDS: ALPRAZolam 0.5 MG TAB PO SCH ×3 (05:05→22:20)
[2020-10-07] MEDS: SODIUM CHLORIDE 0.9% INJ 10 ML SYR IV SCH ×2 (05:06→17:05)
[2020-10-07 05:43] LABS: HEMATOCRIT 42.3 % (36.0-47.0); HEMOGLOBIN 13.4 g/dl (12.0-15.5); MEAN CORPUSCULAR HEMOGLOBIN 30.5 pg (27.0-33.0); MEAN CORPUSCULAR HGB CONC 31.7 g/dl (32.0-36.5); MEAN CORPUSCULAR VOLUME 96.4 fl (80.0-96.0); PLATELET COUNT, AUTOMATED 219 10^3/uL (150-450); RED BLOOD COUNT 4.39 10^6/uL (4.00-5.40); WHITE BLOOD COUNT 9.8 10^3/uL (4.0-10.0)
[2020-10-07 06:10] LABS: BLOOD UREA NITROGEN 17 MG/DL (7-18); CALCIUM LEVEL 9.7 MG/DL (8.5-10.1); CARBON DIOXIDE LEVEL 32 MEQ/L (21-32); CHLORIDE LEVEL 105 MEQ/L (98-107); CREATININE FOR GFR 0.25 MG/DL (0.55-1.30); GLOMERULAR FILTRATION RATE > 60.0 (>51); GLUCOSE, FASTING 87 MG/DL (70-100); POTASSIUM SERUM 3.7 MEQ/L (3.5-5.1); SODIUM LEVEL 141 MEQ/L (136-145)
[2020-10-07] MEDS: HumaLOG INSULIN (NovoLOG) PER UNIT SC SCH ×4 (07:30→20:27)
[2020-10-07] MEDS: IPRATROPIUM 0.5MG/ALBUTEROL 2.5MG INH SOL UD 3ML (DUONEB) NEB SCH ×4 (07:39→19:18)
[2020-10-07] MEDS: PANTOPRAZOLE 40MG TAB (PROTONIX) PO SCH ×2 (08:32→20:27)
[2020-10-07] MEDS: guaiFENesin ER 600 MG TAB PO SCH ×2 (08:33→20:26)
[2020-10-07] MEDS: METOPROLOL TART 12.5 MG PER 1/2 TAB PO SCH (08:33)
[2020-10-07] MEDS: ENOXAPARIN 60MG/0.6ML SYRINGE (J1650 PER 10MG) SC SCH ×2 (08:33→20:27)
[2020-10-07] MEDS ORDERED: NS 500 ML IV ONE (09:10)
--- NOTE | 2020-10-07 10:23 | ECHO ---
DATE OF PROCEDURE: 10/06/2020 Age: 50 Gender: Female Height: 68 inches Weight: 248 pounds Body surface area: 2.22 m2 PATIENT LOCATION: Inpatient ICU, Room 3208. REFERRING PHYSICIAN: Fabien Rush DO. INDICATION: Dyspnea. MEASUREMENTS: 2D Measurements: RV 3.1 cm LV 3.2 cm Septum 1.0 cm Posterior wall 1.0 cm Aortic Root 3.1 cm LA 3.0 cm LVEF 75% Doppler Measurements: AV 1.19 m/s LVOT 1.0 m/s LVOT diameter 1.8 cm MV-E 92, A 90, E/A ratio 1 Early mitral deceleration time 145 msec E prime medial 6.3, A prime medial 12, E prime lateral 10 Average E/E prime ratio 11.2/PCWP 15.9 mmHg PV 0.9 m/s Pulmonary artery acceleration time 92 msec PASP 40 mmHg IVC 1.3 cm COMMENTS: Sinus tachycardia without intraventricular conduction disturbance. Technically challenging study in light of the patients body habitus, but diagnostically useful information was still obtained. Normal left ventricular size, wall thickness, and hyperkinetic wall motion. Normal left atrial size and Doppler assessment of LV diastolic function and estimated mean left atrial pressure. Normal right heart chamber sizes and motion with single Doppler sign suggesting moderate pulmonary hypertension. Somewhat reduced IVC size and complete collapse suggestive of a low central venous pressure. Normal aortic dimensions. Normal appearing and functioning aortic valve. Normal appearing and functioning mitral valve. The tricuspid valve was not well visualized. We were unable to detect any intracardiac mass. No more than a physiological amount of pericardial fluid. MTDD
[2020-10-07] MEDS: ACETAMINOPHEN TAB 650MG DOSE (2X325MG) PO PRN (10:55)
--- NOTE | 2020-10-07 11:33 | IPNPDOC ---
Date Seen The patient was seen on 10/07/20. Progress Note SUBJECTIVE: Patient was seen and examined this morning. She currently has no new complaints. She was noted to have some desaturations on her CPAP last night. She is continued on high flow nasal cannula when awake. She is working with physical therapy although she is noted to become hypoxic and tachycardic. OBJECTIVE PHYSICAL EXAMINATION: VITAL SIGNS: Please see below. GENERAL: Awake, alert, and oriented. Appears in no acute distress. Sitting up in chair comfortably HEENT: Atraumatic, normocephalic. Eyes are nonicteric. Trachea is midline. Mucous membranes are pink and moist. Weak voice/poor phonation. blood blister on left lower lip CARDIOVASCULAR: Normal S1, S2. Tachycardic rate. Regular rate and rhythm. No clicks, rubs, or murmurs. No JVD RESPIRATORY: Diminished breath sounds throughout. Coarse breath sounds. No wheezing. Symmetric chest expansion. No accessory muscle use ABDOMINAL: Morbidly obese. Soft, nondistended. Nontender. Normoactive bowel sounds throughout EXTREMITIES: No edema. Full and equal pulses in bilateral upper and lower extremities NEUROLOGICAL: No focal neurological deficits. PSYCHOLOGICAL: Mood and affect appear appropriate LABORATORY DATA, IMAGING STUDIES, MICROBIOLOGY: Please see below. Echocardiogram: Pending DVT prophylaxis ordered?: Lovenox ASSESSMENT AND PLAN: Patient is a 50 year old female who presented to [facility] ER with a small bowel obstruction status post bowel resection surgery on 09/02/2020, if any, positive on 332 and 21. The patient was asymptomatic with Covid-19 after her surgery but then developed shortness of breath and s ubsequently developed hypoxemic respiratory failure requiring intubation. Patient was intubated on 09/18/2020 and extubated on 09/23/2020. The patient's been transitioned to high flow nasal cannula during the day with CPAP at night PROBLEMS: 1. 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 She is continued on Medrol. Will continue to taper off of steroid. Will decrease to 8mg Medrol today -She is continued on high level of supplemental oxygen. She uses CPAP at night. She has made minimal progress in regards to her oxygen. Patient has been encouraged to continue to work with PT. Incentive spirometer and EZPAP have been ordered. She has a long road to recovery -Will continue to wean steroids. Chest x-ray yesterday does demonstrate bilateral airspace disease. She has completed therapy for COVID and is currently off of precautions. -Will continue to wean O2 as tolerated 2. Hematuria -Has resolved. Will continue to monitor while she is on Lovenox 3. Sinus Tachycardia -Patient continues to be in sinus tachycardia. Likely driven by her hypoxia. -Patient responded to a 500cc bolus of NS yesterday. Will give another 500cc today as she appears dry and with decreased oral intake. -Will increase Lopressor to 25mg BID and decrease Cardizem to 60 q6h. 4. Transient Atrial Fibrillation Patient noted to be in atrial fibrillation when she had first declined. This was likely secondary to hypoxia. She has remained in sinus rhythm since that time. -Will continue to monitor 5. JAQUELINE -Continue CPAP 6. Incarcerated Incisional Hernia -s/p surgical correction on 09/02/2020 -Well healing 7. Physical deconditioning/debility -Patient has been hospitalized for over 1 month with minimal activity. -Physical therapy ordered and patient encouraged to work with PT. -Likely will need rehab once medically improved 9. GI prophylaxis -Protonix 10. DVT Prophylaxis -Lovenox DISPOSITION: Patient has made some but minimal progress. She does remain high risk for further decompensation. Will continue with supportive therapy. Patient encouraged to work with PT and encouraged PO intake. Anticipate eventual rehabilitation once medically improved VS, I&O, 24H, Fishbone Vital Signs/I&O Vital Signs Date Time Temp Pulse Resp B/P (MAP) Pulse Ox O2 Delivery O2 Flow Rate FiO2 10/07/20 11:06 91 HVNI-Vapotherm 40.0 100 10/07/20 08:33 123 112/60 10/07/20 04:00 97.3 10/07/20 00:00 22 I&O- Last 24 Hours up to 6 AM 10/07/20 05:59 Intake Total 920 ml Output Total 1115 ml Balance -195 ml Laboratory Data 24H LABS Laboratory Tests 2 10/06/20 12:02: Bedside Glucose (Misc Panel) 146H 10/06/20 16:56: Bedside Glucose (Misc Panel) 164H 10/06/20 20:44: Bedside Glucose (Misc Panel) 121H 10/07/20 04:44: Nucleated Red Blood Cells % (auto) 0.0, Anion Gap 4L, Glomerular Filtration Rate > 60.0, Calcium Level 9.7 CBC/BMP Laboratory Tests 10/07/20 04:44 Microbiology Microbiology 09/27/20 Urine Culture - Final, Complete GME ATTESTATION GME ATTESTATION My faculty preceptor for this patient encounter was physically present during the encounter and was fully available. All aspects of the patient interview, examination, medical decision making process, and medical care plan development were reviewed and approved by the faculty preceptor. The faculty preceptor is aware and concurs with the plan as stated in the body of this note and will attest to such by his/her cosignature. ATTENDING NOTE I, Cecil Carr MD, have independently examined this patient and performed my own physical exam, as well as reviewed the documentation and edited where necessary. I have discussed in detail with the resident / student the findings and plan of treatment as documented by the resident / student and edited their note. I agree with their findings and treatment plan and have edited their documentation. SUNDEEP ESCOBAR DO October 07, 2020 11:33 CECIL CARR MD October 15, 2020 15:50
[2020-10-07] MEDS: METOPROLOL TART 25 MG TABLET PO SCH (20:25)
[2020-10-07] MEDS: NORCO, ANEXSIA 5/325MG TABLET (HYDROcodone/ACETAMINOPHEN) PO PRN (20:26)
[2020-10-07] MEDS: SERTRALINE HCL 25 MG TABLET PO SCH (20:27)
[2020-10-08] VITALS (8 sets, daily range): BP systolic 115–131; BP diastolic 67–86
[2020-10-08] MEDS ORDERED: FUROSEMIDE 40MG/4ML VIAL (J1940) IV ONE (00:20)
[2020-10-08] MEDS: CALCIUM CARBONATE 500 MG CHEW U/D PO PRN ×2 (03:15→19:23)
[2020-10-08] MEDS: ALPRAZolam 0.5 MG TAB PO SCH ×3 (04:58→21:44)
[2020-10-08] MEDS: SODIUM CHLORIDE 0.9% INJ 10 ML SYR IV SCH ×2 (04:58→18:05)
[2020-10-08 05:11] LABS: HEMATOCRIT 44.6 % (36.0-47.0); HEMOGLOBIN 14.3 g/dl (12.0-15.5); MEAN CORPUSCULAR HEMOGLOBIN 30.7 pg (27.0-33.0); MEAN CORPUSCULAR HGB CONC 32.1 g/dl (32.0-36.5); MEAN CORPUSCULAR VOLUME 95.7 fl (80.0-96.0); PLATELET COUNT, AUTOMATED 248 10^3/uL (150-450); RED BLOOD COUNT 4.66 10^6/uL (4.00-5.40); WHITE BLOOD COUNT 10.4 10^3/uL (4.0-10.0)
[2020-10-08 05:39] LABS: BLOOD UREA NITROGEN 18 MG/DL (7-18); CALCIUM LEVEL 9.4 MG/DL (8.5-10.1); CARBON DIOXIDE LEVEL 33 MEQ/L (21-32); CHLORIDE LEVEL 101 MEQ/L (98-107); CREATININE FOR GFR 0.31 MG/DL (0.55-1.30); FERRITIN 375 NG/ML (8-252); GLOMERULAR FILTRATION RATE > 60.0 (>51); GLUCOSE, FASTING 95 MG/DL (70-100); LDH LACTATE DEHYDROGENASE 302 U/L (84-246); POTASSIUM SERUM 3.8 MEQ/L (3.5-5.1); SODIUM LEVEL 140 MEQ/L (136-145)
[2020-10-08] MEDS: HumaLOG INSULIN (NovoLOG) PER UNIT SC SCH (07:02)
[2020-10-08] MEDS: IPRATROPIUM 0.5MG/ALBUTEROL 2.5MG INH SOL UD 3ML (DUONEB) NEB SCH ×4 (07:30→19:30)
--- NOTE | 2020-10-08 08:12 | REP ---
INDICATION: hypoxia. COMPARISON: Comparison portable chest x-ray October 06, 2020. TECHNIQUE: Portable upright AP chest radiograph. FINDINGS: Monitoring electrodes are again noted. Fusion plating is seen in cervical spine. A right-sided PICC line terminates in the expected location of superior vena cava. Extensive interstitial infiltrates persist in the lung nuñez. There is some linearly aligned density in the left inferior perihilar region which may reflect atelectasis. Lung parenchyma of the otherwise unchanged.. IMPRESSION: Extensive bilateral interstitial infiltrates. Increased atelectatic density left inferior perihilar region today.. <Electronically signed by Barney Rosado > 10/08/20 0813
[2020-10-08 08:19] LABS: ABG BASE EXCESS 7.6 (-2.0-2.0); ABG HCO3 31.7 MEQ/L (22.0-26.0); ABG O2 SATURATION 90.9 % (95.0-99.0); ABG PARTIAL PRESSURE CO2 42.5 mmHg (35.0-45.0); ABG PARTIAL PRESSURE O2 56.8 mmHg (75.0-100.0); ABG STANDARD HCO3 31.2 MEQ/L (22.0-26.0); ABG pH (ARTERIAL) 7.491 UNITS (7.350-7.450)
[2020-10-08] MEDS: ENOXAPARIN 60MG/0.6ML SYRINGE (J1650 PER 10MG) SC SCH (08:45)
[2020-10-08] MEDS: guaiFENesin ER 600 MG TAB PO SCH ×2 (08:46→20:26)
[2020-10-08] MEDS: METOPROLOL TART 25 MG TABLET PO SCH ×2 (08:46→20:28)
[2020-10-08] MEDS: PANTOPRAZOLE 40MG TAB (PROTONIX) PO SCH ×2 (08:46→20:26)
--- NOTE | 2020-10-08 10:36 | CCN ---
CRITICAL CARE NOTE DATE: 10/08/2020 Critical care time is 44 minutes, this excludes all procedures. Ms. Kumari remains severely hypoxic at bedside today. She easily desaturates with minimal movement down to low 80s. This is on 100% FiO2 40 liters via Vapotherm. Because of her hypoxia last evening, she was not placed on continuous positive airway pressure (CPAP). I have adjusted her bilevel noninvasive therapy to have a higher inspiratory pressure and expiratory pressure to see if this will improve her hypoxia. Chest x-ray shows elevated diaphragm, decreased inspiratory effort. I discussed using incentive spirometry and EzPAP with the patient this morning. She uses EzPAP but is not as consistent with her incentive spirometer. Overall, she feels well, she does state she feels dry. She has been getting out to a cardiac chair. PHYSICAL EXAMINATION: Temperature is 97.4, pulse is 100 in a sinus rhythm, respiratory rate of 22 with a blood pressure of 120/76, oxygen saturation of 100% FiO2 40 liters bled in. General: Awake, alert, and oriented. HEENT: Voice is very hoarse. Pupils equal and reactive to light. Mucous membranes are just minimally dry. Neck: Supple, no tracheal deviation, I do not see any elevated jugular venous pressure (JVP). Pulmonary: Decreased breath sounds throughout especially at the bases. No dullness to percussion. There is no expiratory wheeze. There is no rhonchi. Abdomen: Obese, soft, nontender, nondistended, no hepatosplenomegaly, no masses or hernia. Extremities: No cyanosis, clubbing, or edema. Skin: Pale without rash, jaundice, bruising. Musculoskeletal: No obvious musculoskeletal injury, there is significant muscle weakness, critical illness myopathy. LABORATORY EVALUATION: Shows sodium 140, potassium 3.8, chloride 101, bicarbonate 33, BUN 18, creatinine 0.31, white count of 10.4, hemoglobin 14.3, with a platelet count of 248. Ferritin is down to 375, LDH is down to 302. Chest x-ray, as mentioned above, shows elevated diaphragm, poor chest expansion, perihilar consolidation around the left side with continued interstitial markings likely from interstitial inflammation, less likely vascular congestion. Arterial blood gas shows a pH of 7.49, pCO2 of 42, PaO2 of 57, which shows a worsening PaO2 compared to 09/23/2020. IMPRESSION: Severe hypoxic respiratory failure likely from COVID interstitial lung disease, probable acute respiratory distress syndrome (ARDS). Slow to recover, remains on low dose Medrol at 8 mg by mouth daily. Lactate dehydrogenase (LDH) is trending down. At this point in time, the steroid dose is so low I do not think she requires pneumocystis pneumonia (PCP) prophylaxis. Inflammatory markers are tending to trend down. She remains on high dose Lovenox as she is at high risk for pulmonary embolism. Definitely she has decreased chest expansion on imaging. I have increased her bilevel this evening to see if this helps with her nocturnal hypoxia. I am also hopeful it will help with lung recruitment. Patient's prognosis remains extremely guarded as she has had significant progression of her hypoxia without significant improvement over the past few weeks. At this point in time, it does not appear that she is volume overloaded although a trial of Lasix was administered yesterday. There is no evidence of active infection at this point in time. White count has been trending down. At this point in time, only time will tell whether or not she will survive this hospitalization. MTDD
[2020-10-08] MEDS: NYSTATIN 100,000 UNITS/GM TOPICAL PWD 15 GM TOP PRN ×2 (10:54→21:44)
[2020-10-08] MEDS ORDERED: ENOXAPARIN 60MG/0.6ML SYRINGE (J1650 PER 10MG) SC ONE (12:00)
--- NOTE | 2020-10-08 15:41 | IPNPDOC ---
Date Seen The patient was seen on 10/08/20. Progress Note SUBJECTIVE: Patient was seen and examined this morning. She remains critically ill. She is severely hypoxic and continues to require FiO2 of 100%. Her ABG this morning demonstrates a PaO2 of 57. She has significant desaturations with minimal movement/repositioning. Overnight the patient was noted to have desaturations while on CPAP. Patient herself denies any acute complaints. OBJECTIVE PHYSICAL EXAMINATION: VITAL SIGNS: Please see below. GENERAL: Awake, alert, and oriented. Appears in no acute distress. Sitting up in chair comfortably HEENT: Atraumatic, normocephalic. Eyes are nonicteric. Trachea is midline. Mucous membranes are pink and moist. Weak voice/poor phonation. blood blister on left lower lip CARDIOVASCULAR: Normal S1, S2. Tachycardic rate. Regular rate and rhythm. No cli cks, rubs, or murmurs. No JVD RESPIRATORY: Diminished breath sounds throughout. Coarse breath sounds. No wheezing. Symmetric chest expansion. No accessory muscle use ABDOMINAL: Morbidly obese. Soft, nondistended. Nontender. Normoactive bowel sounds throughout EXTREMITIES: No edema. Full and equal pulses in bilateral upper and lower extremities NEUROLOGICAL: No focal neurological deficits. PSYCHOLOGICAL: Mood and affect appear appropriate LABORATORY DATA, IMAGING STUDIES, MICROBIOLOGY: Please see below. Echocardiogram: DATE OF PROCEDURE: 10/06/2020 Age: 50 Gender: Female Height: 68 inches Weight: 248 pounds Body surface area: 2.22 m2 PATIENT LOCATION: Inpatient ICU, Room 3208. REFERRING PHYSICIAN: Sundeep Escobar DO. INDICATION: Dyspnea. MEASUREMENTS: 2D Measurements: RV 3.1 cm LV 3.2 cm Septum 1.0 cm Posterior wall 1.0 cm Aortic Root 3.1 cm LA 3.0 cm LVEF 75% Doppler Measurements: AV 1.19 m/s LVOT 1.0 m/s LVOT diameter 1.8 cm MV-E 92, A 90, E/A ratio 1 Early mitral deceleration time 145 msec E prime medial 6.3, A prime medial 12, E prime lateral 10 Average E/E prime ratio 11.2/PCWP 15.9 mmHg PV 0.9 m/s Pulmonary artery acceleration time 92 msec PASP 40 mmHg IVC 1.3 cm COMMENTS: Sinus tachycardia without intraventricular conduction disturbance. Technically challenging study in light of the patients body habitus, but diagnostically useful information was still obtained. Normal left ventricular size, wall thickness, and hyperkinetic wall motion. Normal left atrial size and Doppler assessment of LV diastolic function and estimated mean left atrial pressure. Normal right heart chamber sizes and motio nwith single Doppler sign suggesting moderate pulmonary hypertension. Somewhat reduced IVC size and complete collapse suggestive of a low central venous pressure. Normal aortic dimensions. Normal appearing and functioning aortic valve. Normal appearing and functioning mitral valve. The tricuspid valve was not well visualized. We were unable to detect any intracardiac mass. No more than a physiological amount of pericardial fluid. DVT prophylaxis ordered?: Lovenox ASSESSMENT AND PLAN: Patient is a 50 year old female who presented to the [facility] ER with a small bowel obstruction status post bowel resection surgery on 09/02/2020, and COVID-19 positive. The patient was asymptomatic with Covid-19 after her surgery but then developed shortness of breath and subsequently developed hypoxemic respiratory failure requiring intubation. Patient was intubated on 09/18/2020 and extubated on 09/23/2020. The patient's been transitioned to high flow nasal cannula during the day with CPAP at night. She has remained with high oxygen requirements. Most recent ABG demonstrating PaO2 of 57 on high flow nasal cannula FiO2 of 100%. PROBLEMS: 1. Acute hypoxemic respiratory failure 2/2 ARDS 2/2 COVID-19 -Acute COVID-19 has resolved. 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 She is continued on high flow nasal cannula. Her FiO2 is 100%. Her most recent ABG with PaO2 of 57. PaO2/FiO2 = 56.8 conferring a severe ARDS picture. -She remains at high risk for deterioration. She is desaturating with very minimal movement. She does remain tachycardic which is likely primarily driven by her hypoxia. We cannot rule out a PE at this point. When she initially decompensated there was suspicion for a PE and she was started on therapeutic lovenox. She was noted to have hematuria shortly after initiation and her anticoagulation was stopped. Her hematuria has since resolved. Given her high degree of hypoxia and tachycardia, PE remains on the differential. Ideally CTA would be performed however with her current oxygen requirements she may not tolerate transport to CT scan. Will start Lovenox 100mg BID for suspected PE. -Will continue 8mg Medrol. Will not wean any further for time being -She is continued on CPAP. Pulmonary/Critical Care medicine is following. Recommendations appreciated. CPAP pressure increased this morning to help with nocturnal hypoxia 2. Hematuria -Has resolved. Patient has been started on full dose lovenox today. -Will continue to monitor for bleeding. However, minimal hematuria will not warrant discontinuation of anticoagulation 3. Sinus Tachycardia -Patient continues to be in sinus tachycardia. Likely driven by her hypoxia. -Echocardiogram demonstrated likely low CVP. -Continue Lopressor to 25mg BID and Continue Cardizem to 60 q6h. -Considering possible PE given continued hypoxia and tachycardia. Patient has been started on full dose lovenox 4. Transient Atrial Fibrillation Patient noted to be in atrial fibrillation when she had first declined. This was likely secondary to hypoxia. She has remained in sinus rhythm since that time. -Will continue to monitor 5. JAQUELINE -Continue CPAP 6. Incarcerated Incisional Hernia -s/p surgical correction on 09/02/2020 -Well healing 7. Physical deconditioning/debility -Patient has been hospitalized for over 1 month with minimal activity. -Physical therapy ordered and patient encouraged to work with PT. -Likely will need rehab once medically improved 9. GI prophylaxis -Protonix 10. DVT Prophylaxis -Lovenox DISPOSITION: Patient remains critically ill. She is requiring FiO2 of 100% with PaO2 of 56.8. She is at high risk for further deterioration. She has been started on full dose anticoagulation for probable PE VS, I&O, 24H, [facility] Vital Signs/I&O Vital Signs Date Time Temp Pulse Resp B/P (MAP) Pulse Ox O2 Delivery O2 Flow Rate FiO2 10/08/20 12:51 109 115/73 10/08/20 12:00 40.0 100 10/08/20 12:00 97.0 22 92 HVNI-Vapotherm I&O- Last 24 Hours up to 6 AM 10/08/20 06:00 Intake Total 1380 ml Output Total 2425 ml Balance -1045 ml Laboratory Data 24H LABS Laboratory Tests 2 10/07/20 16:59: Bedside Glucose (Misc Panel) 170H 10/07/20 20:17: Bedside Glucose (Misc Panel) 147H 10/08/20 04:50: Nucleated Red Blood Cells % (auto) 0.0, D-Dimer, Quantitative 2320.72H, Anion Gap 6L, Glomerular Filtration Rate > 60.0, Calcium Level 9.4, Ferritin 375H, Lactate Dehydrogenase 302H 10/08/20 08:05: Blood Gas Bicarbonate Standard 31.2H, Arterial Blood pH 7.491H, Arterial Blood Partial Pressure CO2 42.5, Arterial Blood Partial Pressure O2 56.8L, Arterial Blood Total CO2 33.0H, Arterial Blood HCO3 31.7H, Arterial Blood Base Excess 7.6H, Arterial Blood Oxygen Saturation 90.9L CBC/BMP Laboratory Tests 10/08/20 04:50 GME ATTESTATION GME ATTESTATION My faculty preceptor for this patient encounter was physically present during the encounter and was fully available. All aspects of the patient interview, examination, medical decision making process, and medical care plan development were reviewed and approved by the faculty preceptor. The faculty preceptor is aware and concurs with the plan as stated in the body of this note and will attest to such by his/her cosignature. ATTENDING NOTE I, Cecil Apodaca MD, have independently examined this patient and performed my own physical exam, as well as reviewed the documentation and edited where necessary. I have discussed in detail with the resident / student the findings and plan of treatment as documented by the resident / student and edited their note. I agree with their findings and treatment plan and have edited their documentation. SUNDEEP ESCOBAR DO October 08, 2020 15:02 CECIL APODACA MD October 15, 2020 16:00
[2020-10-08] MEDS: SERTRALINE HCL 25 MG TABLET PO SCH (20:26)
[2020-10-08] MEDS: ENOXAPARIN 100MG/1ML SYRINGE (J1650 PER 10MG) SC SCH (20:28)
[2020-10-09] VITALS: BP 119/76
[2020-10-09] MEDS: ACETAMINOPHEN TAB 650MG DOSE (2X325MG) PO PRN (02:19)
[2020-10-09 04:00] VITALS: BP 121/75
[2020-10-09 04:33] LABS: HEMOGLOBIN 13.9 g/dl (12.0-15.5); MEAN CORPUSCULAR HEMOGLOBIN 30.5 pg (27.0-33.0); MEAN CORPUSCULAR HGB CONC 31.6 g/dl (32.0-36.5); MEAN CORPUSCULAR VOLUME 96.5 fl (80.0-96.0); PLATELET COUNT, AUTOMATED 247 10^3/uL (150-450); RED BLOOD COUNT 4.56 10^6/uL (4.00-5.40); WHITE BLOOD COUNT 10.3 10^3/uL (4.0-10.0)
[2020-10-09 04:54] LABS: BLOOD UREA NITROGEN 26 MG/DL (7-18); CARBON DIOXIDE LEVEL 35 MEQ/L (21-32); CHLORIDE LEVEL 102 MEQ/L (98-107); CREATININE FOR GFR 0.24 MG/DL (0.55-1.30); GLOMERULAR FILTRATION RATE > 60.0 (>51); GLUCOSE, FASTING 95 MG/DL (70-100); POTASSIUM SERUM 3.8 MEQ/L (3.5-5.1); SODIUM LEVEL 141 MEQ/L (136-145)
[2020-10-09] MEDS: SODIUM CHLORIDE 0.9% INJ 10 ML SYR IV SCH ×2 (05:15→19:03)
[2020-10-09] MEDS: ALPRAZolam 0.5 MG TAB PO SCH ×3 (05:16→23:16)
[2020-10-09 08:00] VITALS: BP 124/81
[2020-10-09] MEDS: IPRATROPIUM 0.5MG/ALBUTEROL 2.5MG INH SOL UD 3ML (DUONEB) NEB SCH ×4 (08:00→19:55)
[2020-10-09] MEDS: PANTOPRAZOLE 40MG TAB (PROTONIX) PO SCH ×2 (08:35→20:30)
[2020-10-09] MEDS: guaiFENesin ER 600 MG TAB PO SCH ×2 (08:35→20:30)
[2020-10-09] MEDS: ENOXAPARIN 100MG/1ML SYRINGE (J1650 PER 10MG) SC SCH ×2 (08:36→20:31)
[2020-10-09] MEDS: METOPROLOL TART 25 MG TABLET PO SCH ×2 (08:36→20:31)
--- NOTE | 2020-10-09 11:34 | CCN ---
CRITICAL CARE NOTE DATE: 10/09/2020 SUBJECTIVE: Ms. Kumari has remained severely hypoxic with hypoxic respiratory failure. Some improvement in oxygenation based on higher O2 sats. Now when moving even being cleaned up for a bowel movement, her desaturation was only into the mid 80s; previously, it would go into the 70s with this type of movement. While on BiPAP, her oxygen saturation even reached 97%, which is an improvement. I think the improvement was secondary to the positive pressure therapy. She needs to continue to focus on lung recruitment, wear BiPAP as much as possible, and continue attempts towards mobilization. She expresses understanding. She did eat her breakfast. She has had no chest pain. Obviously she remains short of breath. No cough, fever, or chills. OBJECTIVE: VITAL SIGNS: Temperature 96.5, pulse 109, respiratory rate 28, blood pressure 124/81, oxygen saturation 97% on 100% FiO2 through the BiPAP. When on Vapotherm and just after being turned, she is 89% on 100% at 40 liters. GENERAL: Awake, alert, and oriented. Speech still soft. HEENT: Sclerae clear and anicteric. Pupils equal and reactive to light. Mucous membranes are moist without lesions. There is a little bit of dryness of the tongue. NECK: Supple. No tracheal deviation or mass. No elevated JVP. LYMPHATICS: No cervical, supraclavicular, or axillary adenopathy. CARDIAC: Tachycardic S1, S2 without audible murmur, rub, or gallop, but distant heart sounds. PMI is difficult to palpate due to body habitus. PULMONARY: Decreased breath sounds with rales at the bases. ABDOMEN: Obese, soft, nontender, and nondistended with no hepatosplenomegaly and no masses or hernias. EXTREMITIES: No cyanosis, clubbing, or edema. SKIN: Pale without rash, jaundice, or bruising. LABORATORY DATA: Shows a white blood cell count of 10.3, hemoglobin of 13.9, platelet count of 247,000. Chem panel shows sodium 141, potassium 3.8, chloride 108, bicarb up to 35, BUN of 26, and creatinine of 0.24. IMAGING DATA: No new chest x-rays. Chest x-ray from yesterday showed hypoventilation and continued increased interstitial markings. IMPRESSION: Severe hypoxic respiratory failure with interstitial lung disease likely post-COVID inflammation. Inflammatory markers are trending down. Would not taper her steroids anymore than they already are. The patient was placed on full dose anticoagulation, which I think is very reasonable; however, I would not move her off the unit for diagnostic testing as she is very severely hypoxic and desaturates with minimal movement, at risk for respiratory and cardiac arrest during transport to a CT. She likely has pulmonary hypertension anyway and as long as there are no signs of bleeding, would continue anticoagulation at full dose. I believe the most beneficial part of her treatment plan over the past 24 hours is her use of BiPAP. I believe this has provided additional lung recruitment that will be necessary for her to continue as much as possible until she is able to recover. CRITICAL CARE TIME: 45 minutes; this excludes all procedures.
--- NOTE | 2020-10-09 14:08 | IPNPDOC ---
Text Note Date of Service The patient was seen on 10/09/20. NOTE SUBJECTIVE: Patient was seen and examined this morning. She remains critically ill. She is severely hypoxic and continues to require FiO2 of 100%. Her ABG this morning demonstrates a PaO2 of 56.8. She has significant desaturations with minimal movement/repositioning. Overnight, the nurse reports no acute events however continue to have desaturations on minimal movement. Patient herself denies any acute complaints. OBJECTIVE PHYSICAL EXAMINATION: VITAL SIGNS: Please see below. GENERAL: Awake, alert, and oriented. Appears in no acute distress. Sitting up in chair comfortably HEENT: Atraumatic, normocephalic. Eyes are nonicteric. Trachea is midline. Mucous membranes are pink and moist. Weak voice/poor phonation. blood blister on left lower lip CARDIOVASCULAR: Normal S1, S2. Tachycardic rate. Regular rate and rhythm. No clicks, rubs, or murmurs. No JVD RESPIRATORY: Diminished breath sounds throughout. Coarse breath sounds. No wheezing. Symmetric chest expansion. No accessory muscle use ABDOMINAL: Morbidly obese. Soft, nondistended. Nontender. Normoactive bowel sounds throughout EXTREMITIES: No edema. Full and equal pulses in bilateral upper and lower extremities NEUROLOGICAL: No focal neurological deficits. PSYCHOLOGICAL: Mood and affect appear appropriate LABORATORY DATA, IMAGING STUDIES, MICROBIOLOGY: Please see below. Echocardiogram: DATE OF PROCEDURE: 10/06/2020 Age: 50 Gender: Female Height: 68 inches Weight: 248 pounds Body surface area: 2.22 m2 PATIENT LOCATION: Inpatient ICU, Room 3208. REFERRING PHYSICIAN: Fabien Rush DO. INDICATION: Dyspnea. MEASUREMENTS: 2D Measurements: RV 3.1 cm LV 3.2 cm Septum 1.0 cm Posterior wall 1.0 cm Aortic Root 3.1 cm LA 3.0 cm LVEF 75% Doppler Measurements: AV 1.19 m/s LVOT 1.0 m/s LVOT diameter 1.8 cm MV-E 92, A 90, E/A ratio 1 Early mitral deceleration time 145 msec E prime medial 6.3, A prime medial 12, E prime lateral 10 Average E/E prime ratio 11.2/PCWP 15.9 mmHg PV 0.9 m/s Pulmonary artery acceleration time 92 msec PASP 40 mmHg IVC 1.3 cm COMMENTS: Sinus tachycardia without intraventricular conduction disturbance. Technically challenging study in light of the patients body habitus, but diagnostically useful information was still obtained. Normal left ventricular size, wall thickness, and hyperkinetic wall motion. Normal left atrial size and Doppler assessment of LV diastolic function and estimated mean left atrial pressure. Normal right heart chamber sizes and motionwith single Doppler sign suggesting moderate pulmonary hypertension. Somewhat reduced IVC size and complete collapse suggestive of a low central venous pressure. Normal aortic dimensions. Normal appearing and functioning aortic valve. Normal appearing and functioning mitral valve. The tricuspid valve was not well visualized. We were unable to detect any intracardiac mass. No more than a physiological amount of pericardial fluid. DVT prophylaxis ordered?: Lovenox ASSESSMENT AND PLAN: Patient is a 50 year old female who presented to the [facility] ER with a small bowel obstruction status post bowel resection surgery on , and COVID-19 positive. The patient was asymptomatic with Covid-19 after her surgery but then developed shortness of breath and subsequently developed hypoxemic respiratory failure requiring intubation. Patient was intubated on 09/18/2020 and extubated on 09/23/2020. The patient's been transitioned to high flow nasal cannula during the day with CPAP at night. She has remained with high oxygen requirements. Most recent ABG on 10/08/2020 demonstrating PaO2 of 56.8 on high flow nasal cannula FiO2 of 100%. PROBLEMS: 1. Acute hypoxemic respiratory failure 2/2 ARDS 2/2 COVID-19 -Acute COVID-19 has resolved. 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 She is continued on high flow nasal cannula. Her FiO2 is 100%. Her most recent ABG with PaO2 of 56.8 conferring a severe ARDS picture. -She remains at high risk for deterioration. She is desaturating with very minimal movement. She does remain tachycardic which is likely primarily driven by her hypoxia. We cannot rule out a PE at this point. When she initially decompensated there was suspicion for a PE and she was started on therapeutic lovenox. She was noted to have hematuria shortly after initiation and her an ticoagulation was stopped. Her hematuria has since resolved. Given her high degree of hypoxia and tachycardia, PE remains on the differential. Ideally CTA would be performed however with her current oxygen requirements she may not tolerate transport to CT scan. -Continue Lovenox 100mg BID for suspected PE. -Continue 8mg Medrol. Will not wean any further for time being -She is continued on CPAP. -No changes made to the treatment for today. Pulmonary/Critical Care medicine is following- Recommendations appreciated. 2. Hematuria -Has resolved. -No visible blood in urine today. -Patient has been on a full dose treatment of Lovenox. -Will continue to monitor for bleeding. However, minimal hematuria will not warrant discontinuation of anticoagulation 3. Sinus Tachycardia -Patient continues to be in sinus tachycardia. Likely driven by her hypoxia. -Echocardiogram demonstrated likely low CVP. -Continue Lopressor to 25mg BID and Continue Cardizem to 60 q6h. -For a high suspicion of possible PE -patient continues to be on full dose lovenox. -No episodes of hematuria or 4 blood in stools.. Transient Atrial Fibrillation -Patient had an episode of atrial fibrillation initially. -Today, continues to remain in sinus rhythm. -Will continue to monitor 5. JAQUELINE -Continue CPAP 6. Incarcerated Incisional Hernia -s/p surgical correction on 09/02/2020 -Well healing 7. Physical deconditioning/debility -Patient has been hospitalized for over 1 month with minimal activity. -Physical therapy ordered and patient encouraged to work with PT. -Patient is able to sit at the edge of the bed but not for long because of desaturations. 9. GI prophylaxis -Protonix 10. DVT Prophylaxis -Lovenox DISPOSITION: Patient remains critically ill. She is requiring FiO2 of 100% on high flow with Vapotherm. She is at high risk for further deterioration. She has been started on full dose anticoagulation for probable PE VS,Fishbone, I+O VS, Fishbone, I+O Laboratory Tests 10/09/20 04:15 Vital Signs Date Time Temp Pulse Resp B/P (MAP) Pulse Ox O2 Delivery O2 Flow Rate FiO2 10/09/20 13:04 111 122/76 10/09/20 08:01 89 HVNI-Vapotherm 40.0 100 10/09/20 08:00 99.5 28 I&O- Last 24 Hours up to 6 AM 10/09/20 06:00 Intake Total 1640 ml Output Total 895 ml Balance 745 ml GME ATTESTATION GME ATTESTATION My faculty preceptor for this patient encounter was physically present during the encounter and was fully available. All aspects of the patient interview, examination, medical decision making process, and medical care plan development were reviewed and approved by the faculty preceptor. The faculty preceptor is aware and concurs with the plan as stated in the body of this note and will attest to such by his/her cosignature. ATTENDING NOTE I, Bobbi Chauhan, have independently examined this patient and performed my own physical exam, as well as reviewed the documentation and edited where necessary. I have discussed in detail with the resident / student the findings and plan of treatment as documented by the resident / student and edited their note. I agree with their findings and treatment plan and have edited their documentation. I will continue to follow the patient during this hospital stay. Lev Hwang MD October 09, 2020 14:08 BOBBI CHAUHAN MD October 09, 2020 16:13
[2020-10-09 20:00] VITALS: BP 118/71
[2020-10-09] MEDS: SERTRALINE HCL 25 MG TABLET PO SCH (20:30)
[2020-10-10] VITALS (8 sets, daily range): BP systolic 112–136; BP diastolic 70–80
[2020-10-10] MEDS: ALPRAZolam 0.5 MG TAB PO SCH ×3 (05:42→21:26)
[2020-10-10] MEDS: SODIUM CHLORIDE 0.9% INJ 10 ML SYR IV SCH ×2 (05:43→17:37)
[2020-10-10] MEDS: IPRATROPIUM 0.5MG/ALBUTEROL 2.5MG INH SOL UD 3ML (DUONEB) NEB SCH ×4 (07:43→17:45)
[2020-10-10 08:06] LABS: BASO # 0.1 10^3/uL (0.0-0.2); BASO % 0.8 % (0.0-1.0); EOS # 0.4 10^3/uL (0.0-0.5); EOS % 4.1 % (0.0-3.0); HEMOGLOBIN 14.4 g/dl (12.0-15.5); LYMPH # 0.9 10^3/uL (1.5-5.0); LYMPH % 8.9 % (24.0-44.0); MEAN CORPUSCULAR HEMOGLOBIN 30.6 pg (27.0-33.0); MEAN CORPUSCULAR VOLUME 95.5 fl (80.0-96.0); MONO # 0.6 10^3/uL (0.0-0.8); MONO % 5.4 % (2.0-8.0); NEUTROPHILS # 8.4 10^3/uL (1.5-8.5); NEUTROPHILS % 79.4 % (36.0-66.0); PLATELET COUNT, AUTOMATED 244 10^3/uL (150-450); RED BLOOD COUNT 4.71 10^6/uL (4.00-5.40); WHITE BLOOD COUNT 10.6 10^3/uL (4.0-10.0)
[2020-10-10] MEDS: ENOXAPARIN 100MG/1ML SYRINGE (J1650 PER 10MG) SC SCH ×2 (08:19→21:27)
[2020-10-10] MEDS: PANTOPRAZOLE 40MG TAB (PROTONIX) PO SCH ×2 (08:19→21:26)
[2020-10-10] MEDS: guaiFENesin ER 600 MG TAB PO SCH ×2 (08:20→21:25)
[2020-10-10] MEDS: METOPROLOL TART 25 MG TABLET PO SCH ×2 (08:20→21:27)
[2020-10-10 08:26] LABS: BLOOD UREA NITROGEN 24 MG/DL (7-18); C REACTIVE PROTEIN QUANTITATIV 5.18 MG/DL (0.00-0.30); CALCIUM LEVEL 9.1 MG/DL (8.5-10.1); CARBON DIOXIDE LEVEL 33 MEQ/L (21-32); CHLORIDE LEVEL 103 MEQ/L (98-107); CREATININE FOR GFR 0.25 MG/DL (0.55-1.30); GLOMERULAR FILTRATION RATE > 60.0 (>51); GLUCOSE, FASTING 107 MG/DL (70-100); SODIUM LEVEL 140 MEQ/L (136-145)
--- NOTE | 2020-10-10 10:11 | IPNPDOC ---
Text Note Date of Service The patient was seen on 10/10/20. NOTE Subjective: Patient is a 50-year-old female with a PMHx of DM2, Asthma, Obesity who was initially admitted in the hospital on 09/01/2020 for an incisional incarcerated hernia. Patient was initially positive for COVID19 on 08/31/2020. Patient was admitted to the hospital service for further evaluation, treatment. General surgery was called on consultation and she has received surgical correction of her incarcerated hernia on 09/[address] [place]. Throughout the hospital course, patient's hypoxia had worsened as her COVID19 infection progressed. Patient received antiviral therapy, corticosteroid therapy, and anti- inflammatory therapy with Tocilizumab. Ultimately patient was intubated and given broad-spectrum antibiotics for suspected contaminant bacterial infection. Patient was initially intubated on 09/18 and was successfully extubated on 09/23. While patient was intubated, Hospitalist service had signed off. Patient was extubated on 09/26 and hospitalist service had continued to follow. Since that point. Patient has required maxed out Vapotherm therapy recently. Patient has been started back up on BiPAP for additional alveolar recruitment. Patient was seen and examined at the bedside. Patient reports that overnight she has been compliant with the use of BiPAP once a mild headache this morning. Denies any nausea, vomiting, chest pain or palpitations. No abdominal pain, reported bowel movement yesterday, but none today. Palacios catheter is in place. Physical exam: Vitals (See below) General: Patient is lying in bed, appears comfortable, oriented to person, place and time HEENT: Normocephalic and atraumatic CVS: +S1S2 Lungs: Diminished lung sounds bilaterally, however, there does not appear to be any wheezing, rhonchi or crackles Abdomen: Again, her abdomen is soft without any appreciated tenderness or distention Extremities: Lower extremities do not reveal any significant pitting edema Assessment/plan: Acute hypoxic respiratory failure - likely 2/2 multifactorial etiology; ARDS - likely 2/2 post COVID19 pneumonia, suspicion for PE - s/p Ventilator dependent respiratory failure - Hemodynamically stable / afebrile - Blood cultures 09/23: Negative - CTA 09/06: Suboptimal examination secondary to bolus timing for pulmonary embolism study. However no filling defect in the major pulmonary arteries. Bilateral diffuse ground-glass opacities. Findings consistent with patient's history of COVID-19 pneumonia. - s/p Remdesivir and Tocilizumab x 2 doses - s/p Meropenem / Vancomycin - c/w Corticosteroids at current dose - c/w Incentive spirometry / Acapella / Mucinex - Has been started on full anticoagulation with Lovenox - Pulmonology on consultation; appreciate their input s/p Hematuria - Palacios catheter is in place - No evidence of bleeding - Hg stable - Will continue to monitor s/p Incarcerated incisional hernia - No complaints of nausea, vomiting or pain. Reports regular bowel movements - CT abdomen / pelvis 09/12: Inferior anterior abdominal wall hernia contains inflamed fat, with moderately dilated small bowel leading into the hernia sac and a transition point identified consistent with small bowel obstruction. Incarceration and strangulation cannot be excluded. - s/p Surgical correction on 09/[address] Darvin Seo - s/p ISS Obstructive sleep apnea - Has been compliant with BIPAP at night History of atrial fibrillation - Has resolved - c/w rate control with Diltiazem / Metoprolol - Was restarted on full anticoagulation with Lovenox Mood disorder - c/w Sertraline GI Prophylaxis - c/w Protonix / Calcium carbonate / Mylanta DVT Prophylaxis: - c/w full dose anticoagulation with Lovenox Disposition: - Awaiting clinical improvement Luis LEWIS, I+O VSLuis, I+O Laboratory Tests 10/10/20 07:56 Vital Signs Date Time Temp Pulse Resp B/P (MAP) Pulse Ox O2 Delivery O2 Flow Rate FiO2 10/10/20 08:20 116 121/78 10/10/20 08:00 96.9 28 89 HVNI-Vapotherm 40.0 100 I&O- Last 24 Hours up to 6 AM 10/10/20 05:59 Intake Total 1110 ml Output Total 655 ml Balance 455 ml CHRISTIANO CHAUHAN MD October 10, 2020 10:11
[2020-10-10] MEDS: ACETAMINOPHEN TAB 650MG DOSE (2X325MG) PO PRN (15:00)
--- NOTE | 2020-10-10 19:06 | IPN ---
PROGRESS NOTE DATE: 10/10/2020 SUBJECTIVE: The patient was seen in bed this morning. Not moving much on her own. She did eat breakfast and have a bowel movement. While on 100% nasal cannula 40 liters, the patient's oxygen saturation was 85% at rest. It does improve with the use of bilevel noninvasive therapy. However, the patient states the mask makes her anxious. She used it for a total of six hours last evening. I have asked her to use it throughout the day as I believe she needs lung recruitment because of her obesity and underlying interstitial lung disease causing significant atelectasis on top of her COVID pneumonitis. She is tearful but expresses understanding. She wishes to remain full code. OBJECTIVE: Vital signs: Temperature is 96.9, pulse 116, respiratory rate 22, blood pressure is 121/78, oxygen saturation ranging 85-89% on 100% FiO2 40 liters bled in while on BiPAP with up to 92%. General: The patient awake, alert, voice is hoarse. Does not appear tachypneic but clearly dyspneic with minimal exertion. HEENT: Sclerae are clear and anicteric. A few healing ulcers over her left lip. Tongue is moist. Mucous membranes are moist. Tongue is midline. Neck is supple. No tracheal deviation or mass. Lymph: No cervical, supraclavicular, or axillary adenopathy. Cardiac: Tachycardic, S1, S2 without audible murmur, rub, or gallop. PMI is difficult to palpate due to body habitus, and there is no discernible JVP. Pulmonary: Decreased breath sounds throughout both lung nuñez. Rales at the bases. Otherwise clear to auscultation. Abdomen: Obese, soft, nontender, nondistended. Normal to hyperactive bowel sounds. Extremities: No cyanosis, clubbing, or edema. Skin: Pale without rash, jaundice or bruising. LABORATORY EVALUATION: Sodium 140, potassium 4.0, chloride 103, bicarb 33, BUN 24, creatinine 0.25, with a glucose of 107. CRP is elevated at 518. White blood cell count is at 10.6, hemoglobin 14.4, hematocrit 45, platelet count 244. Neutrophils of 79. No new arterial blood gas or imaging over the past few days. ASSESSMENT AND PLAN: Severe hypoxic respiratory failure. Because of the elevated CRP and the recent decline in Solu-Medrol with worsening oxygen saturations I have increased her methylprednisolone to 20 mg IV twice a day. It may be that she requires longer duration of steroid therapy to decrease inflammation and interstitial lung disease. A large contributor of her ongoing hypoxia is her atelectasis and BiPAP is assisting with this. However, the patient is not using this continuously, six hours last evening estimated. I have asked her to use it throughout the day. She can have breaks to speak with her family, to eat meals, but needs to return to bilevel noninvasive therapy as I believe this will help with lung recruitment and atelectasis. She remains on full-dose Lovenox which I think is reasonable, especially given the severity of her pulmonary hypertension with the ongoing hypoxia. I would not move her for a CT scan at this point in time as I do not believe it would make much difference in her clinical treatment and it would expose her to the possibility of having a cardiac arrest with that much movement. Primary care team is managing the remainder of her medical issues. At this point in time no signs of sepsis or infection but we will continue to monitor, especially with immunosuppression.
[2020-10-10] MEDS: SERTRALINE HCL 25 MG TABLET PO SCH (21:25)
[2020-10-10] MEDS: methylPREDNISolone 40MG 1ML VIAL IV SCH (21:26)
[2020-10-11] VITALS (7 sets, daily range): BP systolic 113–127; BP diastolic 64–82
[2020-10-11] MEDS: ALPRAZolam 0.5 MG TAB PO SCH ×3 (05:09→21:00)
[2020-10-11] MEDS: SODIUM CHLORIDE 0.9% INJ 10 ML SYR IV SCH ×2 (05:10→18:08)
[2020-10-11] MEDS: IPRATROPIUM 0.5MG/ALBUTEROL 2.5MG INH SOL UD 3ML (DUONEB) NEB SCH ×4 (07:36→19:13)
[2020-10-11] MEDS: PANTOPRAZOLE 40MG TAB (PROTONIX) PO SCH ×2 (09:37→21:01)
[2020-10-11] MEDS: methylPREDNISolone 40MG 1ML VIAL IV SCH ×2 (09:38→21:01)
[2020-10-11] MEDS: guaiFENesin ER 600 MG TAB PO SCH ×2 (09:38→21:00)
[2020-10-11] MEDS: METOPROLOL TART 25 MG TABLET PO SCH ×2 (09:38→21:01)
[2020-10-11] MEDS: ENOXAPARIN 100MG/1ML SYRINGE (J1650 PER 10MG) SC SCH ×2 (09:38→21:00)
--- NOTE | 2020-10-11 11:41 | CCN ---
CRITICAL CARE/PULMONARY PROGRESS NOTE DATE: 10/11/2020 SUBJECTIVE: The patient worked with Physical Therapy this morning, has less desaturations than last week. Even with standing, the lowest oxygen saturation was 85%. Oxygen saturation improves to 97% when on bilevel noninvasive therapy. She again is tearful today but states that she does not want to , she wants to keep working and recover. OBJECTIVE: VITAL SIGNS: Temperature is 98.5, pulse is 124, respiratory rate is 28, blood pressure is 118/80, oxygen saturation is 93% on 100% FIO2. She is still on Vapotherm at 40 liters. GENERAL: Awake, alert and oriented. Affect and mood are appropriate. She is slightly tearful. She has a very soft voice. HEENT: Sclera clear, nonicteric. Pupils equal and reactive to light. Mucous membranes are moist without lesions. Oropharynx without erythema or exudate. Mallampati 4 airway. NECK: Large in circumference. No elevated JVP. No peripheral edema. LYMPH NODES: No cervical, supraclavicular or axillary adenopathy. CARDIAC: Tachycardic S1 and S2 without audible murmur, rub or gallop. No elevated JVP. PULMONARY: Decreased breath sounds throughout without rhonchi, rales or wheezes. No dullness to percussion. No prolongation of the expiratory phase. ABDOMEN: Obese, soft, nontender, nondistended. No hepatosplenomegaly. No masses or hernia. EXTREMITIES: No cyanosis, clubbing or edema. SKIN: Pale without rash, jaundice or bruising. LABORATORY DATA: Sodium is 140, potassium is 4.0, chloride is 103, bicarbonate 33, BUN is 24, creatinine 0.25 with a fasting glucose of 107. CRP was elevated at 518. These are labs from yesterday. She has had no labs this morning. IMPRESSION: Senia is a 50-year-old female with COVID interstitial lung disease. I did increase her steroids yesterday because of her increase in CRP and the fact that she was not having improvement with her oxygen saturation. Bilevel noninasive therapy seems to be helping. 1. Severe hypoxic respiratory failure. Plan is to continue bilevel noninasive therapy for lung recruitment as much as possible. Increase mobilization. Continue steroids at current dose for interstitial lung disease. I would also continue full anticoagulation unless there is a contraindication. If patient survives this hospitalization, will likely require prolonged rehab. MTDD
[2020-10-11 11:46] LABS: HEMATOCRIT 41.8 % (36.0-47.0); HEMOGLOBIN 13.6 g/dl (12.0-15.5); MEAN CORPUSCULAR HEMOGLOBIN 31.1 pg (27.0-33.0); MEAN CORPUSCULAR HGB CONC 32.5 g/dl (32.0-36.5); MEAN CORPUSCULAR VOLUME 95.7 fl (80.0-96.0); PLATELET COUNT, AUTOMATED 262 10^3/uL (150-450); RED BLOOD COUNT 4.37 10^6/uL (4.00-5.40); WHITE BLOOD COUNT 12.6 10^3/uL (4.0-10.0)
[2020-10-11 12:22] LABS: BLOOD UREA NITROGEN 22 MG/DL (7-18); CALCIUM LEVEL 9.7 MG/DL (8.5-10.1); CARBON DIOXIDE LEVEL 33 MEQ/L (21-32); CHLORIDE LEVEL 101 MEQ/L (98-107); CREATININE FOR GFR 0.33 MG/DL (0.55-1.30); GLOMERULAR FILTRATION RATE > 60.0 (>51); GLUCOSE, FASTING 163 MG/DL (70-100); LDH LACTATE DEHYDROGENASE 280 U/L (84-246); SODIUM LEVEL 139 MEQ/L (136-145)
--- NOTE | 2020-10-11 15:52 | IPNPDOC ---
Date Seen The patient was seen on 10/11/20. Progress Note SUBJECTIVE: Patient was seen and examined this morning. She has remained severely hypoxic. No adverse events have been reported. The patient has no new complaints today. She denies any worsening of her shortness of breath. She states that she is weak but agrees to continue to work with physical therapy OBJECTIVE PHYSICAL EXAMINATION: VITAL SIGNS: Please see below. GENERAL: Awake, alert, and oriented. Appears in no acute distress although weak appearing. Sitting up in chair comfortably HEENT: Atraumatic, normocephalic. Eyes are nonicteric. Trachea is midline. Mucous membranes are pink and moist. Weak voice/poor phonation. CARDIOVASCULAR: Normal S1, S2. Tachycardic rate. Regular rate and rhythm. No clicks, rubs, or murmurs. No JVD RESPIRATORY: Diminished breath sounds throughout. No wheezing. Symmetric chest expansion. No accessory muscle use ABDOMINAL: Morbidly obese. Soft, nondistended. Nontender. Normoactive bowel sounds throughout EXTREMITIES: No edema. Full and equal pulses in bilateral upper and lower extremities NEUROLOGICAL: No focal neurological deficits. PSYCHOLOGICAL: Mood and affect appear appropriate LABORATORY DATA, IMAGING STUDIES, MICROBIOLOGY: Please see below. DVT prophylaxis ordered?: Lovenox ASSESSMENT AND PLAN: Patient is a 50 year old female who presented to the [facility] ER with a small bowel obstruction status post bowel resection surgery on 06/2020, and COVID-19 positive. The patient was asymptomatic with Covid-19 after her surgery but then developed shortness of breath and subsequently developed hypoxemic respiratory failure requiring intubation. Patient was intubated on 09/18/2020 and extubated on 09/23/2020. The patient's been transitioned to high flow nasal cannula during the day with CPAP at night. She has remained with high oxygen requirements. Bilevel adjustments have been made by pulmonary medicine with improvement in oxygen saturation . PROBLEMS: 1. Acute hypoxemic respiratory failure 2/2 ARDS 2/2 COVID-19 -Acute COVID-19 has resolved. Patient has completed treatment with tocilizumab, remdesivir, and decadron. -Likely post COVID-19 interstitial disease at this point. She has been placed on IV solumedrol given her likely interstitial lung disease. Pulmonary medicine is following and has increased Bilevel settings. She has had an increase in her SpO2 likely secondary to improved lung recruitment. She has remained tachycardic which could be driven by her hypoxia although a PE could not be ruled out. She has been started on full dose Lovenox. Unfortunately can not obtain a CTA given her severe hypoxia. -Will continue supportive care with supplemental oxygen, bilevel for lung recruitment, IV steroids, and anticoagulation -Physical therapy working with patient. She will likely require a a long rehabilitation 2. Sinus Tachycardia -Patient continues to be in sinus tachycardia. Likely secondary to hypoxia. Echocardiogram has resulted without any significant findings. -Continue Lopressor 25mg BID and Cardizem 60mg q6hr 3. Transient Atrial fibrillation -Patient has remained in sinus. Was noted to have an episode of atrial fibrillation earlier in her hospitalization likely driven by hypoxia 4. Hematuria -Has resolved. Patient is on full dose anticoagulation. Will continue to monitor 5. JAQUELINE -Patient is currently on Bilevel 6. Incarcerated Incisional Hernia -s/p surgical correction on 09/02/2020/ -Healing well. No acute complications 7. Physical Deconditioning/Debility -Patient has an extended hospital stay of over 1 month with critical illness. She is severely debilitated. She is working with physical therapy. She will need [facility] rehab pending clinical improvement. 8. GI prophylaxis -Protonix 9. DVT prophylaxis -Lovenox DISPOSITION: Patient remains critically ill with severe hypoxia. 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 VS, I&O, 24H, Fishbone Vital Signs/I&O Vital Signs Date Time Temp Pulse Resp B/P (MAP) Pulse Ox O2 Delivery O2 Flow Rate FiO2 10/11/20 13:02 113 127/82 10/11/20 11:12 100 10/11/20 08:00 40.0 10/11/20 08:00 98.5 28 89 HVNI-Vapotherm I&O- Last 24 Hours up to 6 AM 10/11/20 06:00 Intake Total 1980 ml Output Total 825 ml Balance 1155 ml Laboratory Data 24H LABS Laboratory Tests 2 10/11/20 11:31: Nucleated Red Blood Cells % (auto) 0.0, Anion Gap 5L, Glomerular Filtration Rate > 60.0, Calcium Level 9.7, Lactate Dehydrogenase 280H CBC/BMP Laboratory Tests 10/11/20 11:31 GME ATTESTATION GME ATTESTATION My faculty preceptor for this patient encounter was physically present during the encounter and was fully available. All aspects of the patient interview, examination, medical decision making process, and medical care plan development were reviewed and approved by the faculty preceptor. The faculty preceptor is aware and concurs with the plan as stated in the body of this note and will attest to such by his/her cosignature. ATTENDING NOTE I, Cecil Carr MD, have independently examined this patient and performed my own physical exam, as well as reviewed the documentation and edited where necessary. I have discussed in detail with the resident / student the findings and plan of treatment as documented by the resident / student and edited their note. I agree with their findings and treatment plan and have edited their documentation. SUNDEEP ESCOBAR DO October 11, 2020 15:52 CECIL CARR MD October 15, 2020 16:07
[2020-10-11] MEDS ORDERED: ONDANSETRON 4 MG ORAL DISINTEGRATING TAB PO PRN (19:30)
[2020-10-11] MEDS: ONDANSETRON 4MG/2ML VIAL IV SCH (19:44)
[2020-10-11] MEDS: SERTRALINE HCL 25 MG TABLET PO SCH (21:00)
[2020-10-12] VITALS (8 sets, daily range): BP systolic 107–130; BP diastolic 63–80
[2020-10-12] MEDS: ONDANSETRON 4MG/2ML VIAL IV SCH ×4 (02:00→20:00)
[2020-10-12] MEDS: ACETAMINOPHEN TAB 650MG DOSE (2X325MG) PO PRN (04:12)
[2020-10-12] MEDS: ALPRAZolam 0.5 MG TAB PO SCH ×3 (05:28→21:00)
[2020-10-12] MEDS: SODIUM CHLORIDE 0.9% INJ 10 ML SYR IV SCH ×2 (05:29→17:11)
[2020-10-12] MEDS: IPRATROPIUM 0.5MG/ALBUTEROL 2.5MG INH SOL UD 3ML (DUONEB) NEB SCH ×4 (07:27→19:30)
[2020-10-12] MEDS: ENOXAPARIN 100MG/1ML SYRINGE (J1650 PER 10MG) SC SCH ×2 (08:00→20:55)
[2020-10-12] MEDS: methylPREDNISolone 40MG 1ML VIAL IV SCH ×2 (08:00→21:00)
[2020-10-12] MEDS: PANTOPRAZOLE 40MG TAB (PROTONIX) PO SCH ×2 (08:01→20:56)
[2020-10-12] MEDS: guaiFENesin ER 600 MG TAB PO SCH ×2 (08:01→20:56)
--- NOTE | 2020-10-12 08:16 | REP ---
INDICATION: hypoxia, covid, atelectasis COMPARISON: 10/08/2020 TECHNIQUE: Portable AP view of the chest FINDINGS: Right PICC line with tip in the SVC. The mediastinum and cardiac silhouette are stable and within normal limits for portable technique. The lung nuñez demonstrate diffuse bilateral interstitial infiltrates and moderate left mid lung alveolar infiltrate. Findings appear slightly increased when compared to prior examination and should be correlated clinically. No effusion. No pneumothorax. Skeletal structures intact IMPRESSION: Suspected increasing left mid lung infiltrate. <Electronically signed by Israel Holguin > 10/12/20 2056
[2020-10-12] MEDS: METOPROLOL TART 25 MG TABLET PO SCH ×2 (09:28→20:59)
[2020-10-12] MEDS: NYSTATIN 100,000 UNITS/GM TOPICAL PWD 15 GM TOP PRN (10:38)
--- NOTE | 2020-10-12 10:55 | IPNPDOC ---
Date Seen The patient was seen on 10/12/20. Progress Note SUBJECTIVE: Patient was seen and examined this morning. Overnight she had developed some nausea. She did have one episode of vomiting. Her nausea and vomiting has resolved and she has been able to tolerate bilevel. She has been working with physical therapy and going to the chair during the day. She denies any acute complaints. OBJECTIVE PHYSICAL EXAMINATION: VITAL SIGNS: Please see below. GENERAL: Awake, alert, and oriented. Appears in no acute distress although weak appearing. Laying comfortably in bed HEENT: Atraumatic, normocephalic. Eyes are nonicteric. Trachea is midline. Mucous membranes are pink and moist. Weak voice/poor phonation. CARDIOVASCULAR: Normal S1, S2. Tachycardic rate. Regular rate and rhythm. No clicks, rubs, or murmurs. No JVD RESPIRATORY: Diminished breath sounds throughout. No wheezing. Symmetric chest expansion. No accessory muscle use ABDOMINAL: Morbidly obese. Soft, nondistended. Nontender. Normoactive bowel sounds throughout EXTREMITIES: No edema. Full and equal pulses in bilateral upper and lower extremities NEUROLOGICAL: No focal neurological deficits. PSYCHOLOGICAL: Mood and affect appear appropriate LABORATORY DATA, IMAGING STUDIES, MICROBIOLOGY: Please see below. DVT prophylaxis ordered?: Lovenox ASSESSMENT AND PLAN: Patient is a 50 year old female who presented to the [facility] ER with a small bowel obstruction status post bowel resection surgery on 09/02/2020, and COVID-19 positive. The patient was asymptomatic with Covid-19 after her surgery but then developed shortness of breath and subsequently developed hypoxemic respiratory failure requiring intubation. Patient was intubated on 09/18/2020 and extubated on 09/23/2020. The patient's been transitioned to high flow nasal cannula during the day with CPAP at night. She has remained with high oxygen requirements. Bilevel adjustments have been made by pulmonary medicine with improvement in oxygen saturation. . PROBLEMS: 1. Acute hypoxemic respiratory failure 2/2 ARDS 2/2 COVID-19 -Acute COVID-19 has resolved. Patient has completed treatment with tocilizumab, remdesivir, and decadron. -Patients hypoxia is multifactorial. 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 She is on solumedrol. Pulmonary medicine had increased bilevel settings to help with alveolar recruitment. She has made improvement with oxygenation although she still remains hypoxic and requires FiO2 of 100%. She is continued on full dose Lovenox for possible PE although CTA is unable to be performed due to the severity of her hypoxia and inability to safely be transported to a CT scanner. Her tachycardia is improving as well. -Today she has an increased infiltrate on the left. She is afebrile and without a cough. She has been started on Bactrim by Pulmonary service given her high dose steroids and risk of PCP. Will add on Procalcitonin, CRP, galactomannan, and Beta 1-3 beta D glucan. These had been previously negative however patient has been hospitalized for over a month with high dose steroids receiving humidified air. -Physical therapy working with patient. She will likely require a a long rehabilitation 2. Left Lung infiltrate on Chest x-ray -As above. There is an evolving left lung infiltrate on chest x-ray. She has been afebrile. Repeat procalcitonin, crp, and fungal markers. Patient was started on Bactrim for possible PCP given her high dose steroids. Sputum cultures and cytology pending. 3. Sinus Tachycardia -Patient continues to be in sinus tachycardia. Likely secondary to hypoxia. Echocardiogram has resulted without any significant findings. Her tachycardia is resolving. Her HR is currently 100-110 improved from 130 -Continue Lopressor 25mg BID and Cardizem 60mg q6hr 4. Transient Atrial fibrillation -Patient has remained in sinus. Was noted to have an episode of atrial fibrillation earlier in her hospitalization likely driven by hypoxia 5. Hematuria -Has resolved. Patient is on full dose anticoagulation. Will continue to monitor 6. JAQUELINE -Patient is currently on Bilevel 7. Incarcerated Incisional Hernia -s/p surgical correction on 09/02/2020 -Healing well. No acute complications 8. Physical Deconditioning/Debility -Patient has an extended hospital stay of over 1 month with critical illness. She is severely debilitated. She is working with physical therapy. 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 9. GI prophylaxis -Protonix 10. DVT prophylaxis -Lovenox DISPOSITION: Patient remains critically ill with severe hypoxia. 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 hospitalization with [facility] rehabilitation VS, I&O, 24H, Fishbone Vital Signs/I&O Vital Signs Date Time Temp Pulse Resp B/P (MAP) Pulse Ox O2 Delivery O2 Flow Rate FiO2 10/12/20 09:28 119/77 10/12/20 07:28 93 HVNI-Vapotherm 40.0 100 10/12/20 05:28 81 10/12/20 04:00 98.1 10/12/20 00:00 32 I&O- Last 24 Hours up to 6 AM 10/12/20 06:00 Intake Total 1065 ml Output Total 1240 ml Balance -175 ml Laboratory Data 24H LABS Laboratory Tests 2 10/11/20 11:31: Nucleated Red Blood Cells % (auto) 0.0, Anion Gap 5L, Glomerular Filtration Rate > 60.0, Calcium Level 9.7, Lactate Dehydrogenase 280H CBC/BMP Laboratory Tests 10/11/20 11:31 GME ATTESTATION GME ATTESTATION My faculty preceptor for this patient encounter was physically present during the encounter and was fully available. All aspects of the patient interview, examination, medical decision making process, and medical care plan development were reviewed and approved by the faculty preceptor. The faculty preceptor is aware and concurs with the plan as stated in the body of this note and will attest to such by his/her cosignature. ATTENDING NOTE I, Cecil Carr MD, have independently examined this patient and performed my own physical exam, as well as reviewed the documentation and edited where necessary. I have discussed in detail with the resident / student the findings and plan of treatment as documented by the resident / student and edited their note. I agree with their findings and treatment plan and have edited their documentation. SUNDEEP ESCOBAR DO October 12, 2020 10:55 CECIL CARR MD October 15, 2020 16:30
[2020-10-12] MEDS: BACTRIM 160MG/800MG DS TAB PO SCH ×2 (10:59→20:56)
[2020-10-12 11:41] LABS: HEMOGLOBIN 13.1 g/dl (12.0-15.5); MEAN CORPUSCULAR HEMOGLOBIN 30.5 pg (27.0-33.0); MEAN CORPUSCULAR HGB CONC 31.2 g/dl (32.0-36.5); MEAN CORPUSCULAR VOLUME 97.7 fl (80.0-96.0); PLATELET COUNT, AUTOMATED 310 10^3/uL (150-450); WHITE BLOOD COUNT 13.3 10^3/uL (4.0-10.0)
--- NOTE | 2020-10-12 11:47 | IPN ---
PROGRESS NOTE DATE: 10/12/2020 SUBJECTIVE: Senia is a very pleasant 50-year-old female. She is sitting in a chair today, satting 96% on 100% FIO2, 40 liters, I turned down the Vapotherm to 95%. She remained at 93. Will attempt to taper this over the day. She remains on bilevel noninvasive therapy. There was a slight increase in infiltrate on the left, therefore I have added Bactrim to her regimen and obtained sputum cultures. She has been on steroids for quite some time now and runs the risk of possible PCP. She continues to have a mildly elevated LVH. I did increase her steroids over the weekend because of her failure to improve. Today, is actually the best day I have seen her in the past five days. When she is awake again, has a very hoarse voice but is communicating. OBJECTIVE: VITAL SIGNS: Temperature is 98.1, pulse is 81, respiratory rate is 22 to 24, blood pressure is 119/77, oxygen saturation 93 to 94% on 100% FIO2 with a 40 liter flow. HEENT: Sclera clear, nonicteric. Pupils equal, reactive to light. Mucous membranes are moist without lesions. Tongue is midline. NECK: Supple. No tracheal deviation or mass. LYMPH: No cervical, supraclavicular or axillary adenopathy. CARDIAC: Regular S1 and S2 without audible murmur, rub or gallop. No elevated JVP. PMI is difficult to palpate due to body habitus. PULMONARY: Rales at the bases, otherwise clear to auscultation. No rhonchi or wheezes. ABDOMEN: Soft, nontender, nondistended. Obese without mass or hernia. EXTREMITIES: No cyanosis or clubbing. There is no edema. SKIN: Pale without rashes, jaundice or bruising. LABORATORY DATA: Was not performed today. Yesterday, white blood cell count showed 12.6, hemoglobin of 13.6 and a platelet count of 262,000. Yesterday, blood work also showed a sodium of 139, potassium of 4.0, chloride of 101, BUN 22, creatinine of 0.33, LDH is down to 280. Chest x-ray from this morning shows some increase in left perihilar infiltrate. No evidence of pneumothorax. Radiology is confirming my suspicion of increased left mid lung infiltrate. Right PICC line is still in place. IMPRESSION: 1. Severe hypoxic respiratory failure, remains on high dose Lovenox due to likely pulmonary hypertension and possible pulmonary embolism. Remains on steroids due to interstitial lung disease post COVID, placed on Bactrim today for the possibility of PCP due to prolonged hypoxia and steroid use. Sputum cultures obtained today, I also ordered sputum for cytology for pcp. There is also newworsening left infiltrate. Will continue to monitor for sepsis. At this point in time, bronchoscopy sampling would be too risky, patient would likely end up intubated and having worsening hypoxia. There would be a risk of associated with bronchoscopy. Therefore, sputum cultures would be the most reasonable intent to figure out the cause of the infiltrate on the left. Despite this, patient is out of bed to chair, minimal decrease in oxygen requirements, encourage mobility, encourage use of BiPAP for lung recruitment. Will continue to monitor over time. Prognosis remains extremely guarded. MTDD
[2020-10-12 12:20] LABS: BLOOD UREA NITROGEN 24 MG/DL (7-18); C REACTIVE PROTEIN QUANTITATIV 2.45 MG/DL (0.00-0.30); CALCIUM LEVEL 10.2 MG/DL (8.5-10.1); CARBON DIOXIDE LEVEL 34 MEQ/L (21-32); CHLORIDE LEVEL 101 MEQ/L (98-107); CREATININE FOR GFR 0.38 MG/DL (0.55-1.30); GLOMERULAR FILTRATION RATE > 60.0 (>51); GLUCOSE, FASTING 151 MG/DL (70-100); POTASSIUM SERUM 4.3 MEQ/L (3.5-5.1); SODIUM LEVEL 139 MEQ/L (136-145)
[2020-10-12] MEDS ORDERED: diphenhydrAMINE 25MG CAP PO ONE (18:30)
[2020-10-12] MEDS: SERTRALINE HCL 25 MG TABLET PO SCH (20:56)
[2020-10-13] VITALS (7 sets, daily range): BP systolic 115–143; BP diastolic 62–78
[2020-10-13] MEDS: ONDANSETRON 4MG/2ML VIAL IV SCH ×2 (02:00→08:00)
[2020-10-13] MEDS: ALPRAZolam 0.5 MG TAB PO SCH ×3 (05:32→21:40)
[2020-10-13] MEDS: SODIUM CHLORIDE 0.9% INJ 10 ML SYR IV SCH ×2 (05:34→17:14)
[2020-10-13 06:00] LABS: HEMATOCRIT 38.6 % (36.0-47.0); HEMOGLOBIN 12.1 g/dl (12.0-15.5); MEAN CORPUSCULAR HEMOGLOBIN 30.3 pg (27.0-33.0); MEAN CORPUSCULAR HGB CONC 31.3 g/dl (32.0-36.5); MEAN CORPUSCULAR VOLUME 96.5 fl (80.0-96.0); PLATELET COUNT, AUTOMATED 256 10^3/uL (150-450); WHITE BLOOD COUNT 11.5 10^3/uL (4.0-10.0)
[2020-10-13 06:19] LABS: BLOOD UREA NITROGEN 21 MG/DL (7-18); CALCIUM LEVEL 9.8 MG/DL (8.5-10.1); CARBON DIOXIDE LEVEL 35 MEQ/L (21-32); CHLORIDE LEVEL 99 MEQ/L (98-107); CREATININE FOR GFR 0.29 MG/DL (0.55-1.30); GLOMERULAR FILTRATION RATE > 60.0 (>51); GLUCOSE, FASTING 137 MG/DL (70-100); POTASSIUM SERUM 4.5 MEQ/L (3.5-5.1); SODIUM LEVEL 138 MEQ/L (136-145)
[2020-10-13] MEDS: IPRATROPIUM 0.5MG/ALBUTEROL 2.5MG INH SOL UD 3ML (DUONEB) NEB SCH ×4 (08:00→20:00)
--- NOTE | 2020-10-13 09:18 | CCN ---
Pulmonary Progress NOTE DATE: 10/13/2020 SUBJECTIVE: Senia has been up standing, working with Physical Therapy, oxygen requirements have slightly decreased. Continuing to use bilevel noninvasive therapy. CRP appears to be trending down with the addition of steroids. Patient developed a rash over her back thought to be secondary to the use of Bactrim. We do not have confirmed PCP, will await sputum cytology for confirmation prior to starting Atovaquone or other potential therapies. Patient reports no new symptoms. Her mood is actually better than it has been, less tearful. OBJECTIVE: VITAL SIGNS: Temperature is 98.3, pulse is 102, respiratory rate is 22, blood pressure is 141/77 with a MAP of 98. Oxygen saturations 95% on 0.90 FIO2 40 liters. GENERAL: Awake, alert and oriented. Voice is still hoarse. HEENT: Sclera are clear, nonicteric. Pupils are equal and reactive to light. Mucous membranes are moist without lesions. Oropharynx is without erythema or exudate. NECK: Supple. No tracheal deviation or mass. LYMPH NODES: No cervical, supraclavicular or axillary adenopathy. CARDIAC: Tachycardic S1, S2 without audible murmur, rub or gallop. No elevated JVP. No systemic edema. PULMONARY: Rales at the left base, otherwise clear with decreased chest expansion. No prolongation of the expiratory phase. ABDOMEN: Obese, soft, nontender with normal to hyperactive bowel sounds. No discernible mass or hepatosplenomegaly. EXTREMITIES: No cyanosis, clubbing or edema. LABORATORY DATA: Sodium 138, potassium 4.4, chloride 99, bicarbonate 35, BUN 21, creatinine 0.29. White blood cell count of 11.5, hemoglobin 12.1 with a platelet count of 256,000. CRP is down to 2.45. No new chest x-ray today. IMPRESSION: 1. Respiratory failure, severe hypoxia, still requiring bilevel noninvasive therapy for lung recruitment. Full-dose anticoagulation due to severity of hypoxia, probable pulmonary hypertension and at this point in time have not ruled out pulmonary embolism. Patient remains on Solu-Medrol 20 mg, she did seem to have improvement although mild with oxygen requirements with the use of slightly higher dose of Solu-Medrol. This does place her at risk for fungal infection. She has been on steroids for over a month and may have increased risk of PCP, however will await sputum cytology as she has had a reaction to Bactrim. 2. History of atrial fibrillation, currently in sinus tachycardia. Remains on cardiac meds per primary team. 3. GI prophylaxis with Protonix. 4. DVT prophylaxis on full-dose anticoagulation. 5. Allergic rash thought to be secondary to Bactrim, will continue to monitor. 6. Obesity. 7. Protein malnourishment. 8. ICU acquired weakness. Patient's prognosis remains guarded although there has been minimal decrease her in oxygen requirements over the past week. MTDD
[2020-10-13] MEDS: methylPREDNISolone 40MG 1ML VIAL IV SCH ×2 (09:34→20:08)
[2020-10-13] MEDS: ENOXAPARIN 100MG/1ML SYRINGE (J1650 PER 10MG) SC SCH ×2 (09:34→20:08)
[2020-10-13] MEDS: guaiFENesin ER 600 MG TAB PO SCH ×2 (09:35→20:06)
[2020-10-13] MEDS: PANTOPRAZOLE 40MG TAB (PROTONIX) PO SCH ×2 (09:35→20:06)
[2020-10-13] MEDS: METOPROLOL TART 25 MG TABLET PO SCH ×2 (09:35→20:06)
[2020-10-13] MEDS: ONDANSETRON 4MG/2ML VIAL IV PRN (15:49)
--- NOTE | 2020-10-13 16:26 | IPNPDOC ---
Date Seen The patient was seen on 10/13/20. Progress Note SUBJECTIVE: Patient was seen and examined this morning. Patient was started on Bactrim yesterday for PCP prophylaxis. She was noted by nursing staff to develop a rash. She denies any itchiness or complaints regarding the rash. She has remained on high supplemental oxygen. She continues to have significant desaturation with movement although is working with physical therapy and showing improvement. Patient herself has no new complaints OBJECTIVE PHYSICAL EXAMINATION: VITAL SIGNS: Please see below. GENERAL: Awake, alert, and oriented. Appears in no acute distress although weak appearing. Laying comfortably in bed HEENT: Atraumatic, normocephalic. Eyes are nonicteric. Trachea is midline. Mucous membranes are pink and moist. Weak voice/poor phonation. CARDIOVASCULAR: Normal S1, S2. Tachycardic rate. Regular rate and rhythm. No clicks, rubs, or murmurs. No JVD RESPIRATORY: Diminished breath sounds throughout. No wheezing. Symmetric chest expansion. No accessory muscle use. She has some increased crackles on the right lung nuñez ABDOMINAL: Morbidly obese. Soft, nondistended. Nontender. Normoactive bowel sounds throughout SKIN: Morbilliform rash on patients back extending from shoulder to lower back EXTREMITIES: No edema. Full and equal pulses in bilateral upper and lower ext remities NEUROLOGICAL: No focal neurological deficits. PSYCHOLOGICAL: Mood and affect appear appropriate for situation LABORATORY DATA, IMAGING STUDIES, MICROBIOLOGY: Please see below. DVT prophylaxis ordered?: Lovenox ASSESSMENT AND PLAN: Patient is a 50 year old female who presented to the [facility] ER with a small bowel obstruction status post bowel resection surgery on 09/02/2020, and COVID-19 positive. The patient was asymptomatic with Covid-19 after her surgery but then developed shortness of breath and subsequently developed hypoxemic respiratory failure requiring intubation. Patient was intubated on 09/18/2020 and extubated on 09/23/2020. The patient's been transitioned to high flow nasal cannula during the day with CPAP at night. She has remained with high oxygen requirements. Bilevel adjustments have been made by pulmonary medicine with improvement in oxygen saturation. PROBLEMS: 1. Acute hypoxemic respiratory failure 2/2 ARDS 2/2 COVID-19 -Acute COVID-19 has resolved. Patient has completed treatment with tocilizumab, remdesivir, and decadron. -Patients hypoxia is multifactorial. 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 She is on solumedrol. She has shown improvement with higher dose steroids. At this point will continue her on 20mg Solumedrol. This does place he r at risk for opportunistic infection. She had been started on Bactrim for PCP prophylaxis however developed a morbilliform rash consistent with drug reaction. Her Bactrim has been stopped. Will hold off on Atovaquone or other anti-fungals as there is no current objective data to suggest a fungal infection. -Pulmonary medicine has been consulted and is following. Recommendations are appreciated. Bilevel settings have been adjusted previously to help with alveolar recruitment. She has made improvement with oxygenation although she still remains hypoxic. Her FiO2 requirement has improved. She is currently at an FiO2 of 90%. -She is continued on full dose Lovenox for possible PE. She had not received a CTA initially given the severity of her hypoxia. She has shown improvement. She does still desaturate with movement although not as significantly. Could consider performing CTA as she may be able to tolerate. This would help guide the duration of her anticoagulation therapy. Although she likely has pulmonary hypertension given her severe hypoxia and therefore would benefit from antic oagulation regardless -Patient did have an increased infiltrate on chest x-ray on the left yesterda y. She is afebrile and without a cough. Inflammatory markers have been trending down . On exam she has some increased crackles on the right. Possible these findings are from atelectasis or possibly fluid although she appears to be euvolemic. -Physical therapy working with patient. She is severely debilitated from her critical illness and long hospitalization 2. Morbilliform Rash -Patient noted to have a morbilliform rash today. Likely 2/2 bactrim. This has been discontinued. 3. Sinus Tachycardia -Patient continues to be in sinus tachycardia. Likely secondary to hypoxia. Echocardiogram has resulted without any significant findings. Her tachycardia is resolving. Her HR is currently 100-110 improved from 130 -Continue Lopressor 25mg BID and Cardizem 60mg q6hr 4. Transient Atrial fibrillation -Patient has remained in sinus. Was noted to have an episode of atrial fibrillation earlier in her hospitalization likely driven by hypoxia 5. Hematuria -Has resolved. Patient is on full dose anticoagulation. Will continue to monitor 6. JAQUELINE -Patient is currently on Bilevel 7. Incarcerated Incisional Hernia -s/p surgical correction on 09/02/2020 -Healing well. No acute complications 8. Physical Deconditioning/Debility -Patient has an extended hospital stay of over 1 month with critical illness. She is severely debilitated. She is working with physical therapy. 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 9. GI prophylaxis -Protonix 10. DVT prophylaxis -Lovenox DISPOSITION: Patient remains critically ill with severe hypoxia. She has made i mprovement although minimally. 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 hospitalization with salvage determiner rehabilitation VS, I&O, 24H, Fishbone Vital Signs/I&O Vital Signs Date Time Temp Pulse Resp B/P (MAP) Pulse Ox O2 Delivery O2 Flow Rate FiO2 10/13/20 12:00 40.0 90 10/13/20 11:48 94 HVNI-Vapotherm 10/13/20 11:37 115/70 10/13/20 11:32 98.1 112 26 I&O- Last 24 Hours up to 6 AM 10/13/20 06:00 Intake Total 1230 ml Output Total 1225 ml Balance 5 ml Laboratory Data 24H LABS Laboratory Tests 2 10/13/20 05:30: Nucleated Red Blood Cells % (auto) 0.0, Anion Gap 4L, Glomerular Filtration Rate > 60.0, Calcium Level 9.8 CBC/BMP Laboratory Tests 10/13/20 05:30 Microbiology Microbiology 10/12/20 Gram Stain - Final, Complete 10/12/20 Sputum Culture - Final, Complete GME ATTESTATION GME ATTESTATION My faculty preceptor for this patient encounter was physically present during the encounter and was fully available. All aspects of the patient interview, examination, medical decision making process, and medical care plan development were reviewed and approved by the faculty preceptor. The faculty preceptor is aware and concurs with the plan as stated in the body of this note and will attest to such by his/her cosignature. ATTENDING NOTE I, Cecil Apodaca MD, have independently examined this patient and performed my own physical exam, as well as reviewed the documentation and edited where necessary. I have discussed in detail with the resident / student the findings and plan of treatment as documented by the resident / student and edited their note. I agree with their findings and treatment plan and have edited their documentation. SUNDEEP ESCOBAR DO October 13, 2020 16:26 CECIL APODACA MD October 26, 2020 14:10
[2020-10-13] MEDS: SERTRALINE HCL 25 MG TABLET PO SCH (20:06)
[2020-10-13] MEDS: CALCIUM CARBONATE 500 MG CHEW U/D PO PRN (20:11)
[2020-10-14] VITALS (8 sets, daily range): BP systolic 110–140; BP diastolic 60–81; O2SAT 93
[2020-10-14] MEDS: ALPRAZolam 0.5 MG TAB PO SCH ×3 (05:07→22:21)
[2020-10-14] MEDS: SODIUM CHLORIDE 0.9% INJ 10 ML SYR IV SCH ×2 (05:07→18:33)
[2020-10-14 05:35] LABS: HEMATOCRIT 38.5 % (36.0-47.0); HEMOGLOBIN 12.2 g/dl (12.0-15.5); MEAN CORPUSCULAR HEMOGLOBIN 30.8 pg (27.0-33.0); MEAN CORPUSCULAR HGB CONC 31.7 g/dl (32.0-36.5); MEAN CORPUSCULAR VOLUME 97.2 fl (80.0-96.0); PLATELET COUNT, AUTOMATED 279 10^3/uL (150-450); RED BLOOD COUNT 3.96 10^6/uL (4.00-5.40); WHITE BLOOD COUNT 11.4 10^3/uL (4.0-10.0)
[2020-10-14 05:50] LABS: BLOOD UREA NITROGEN 19 MG/DL (7-18); CARBON DIOXIDE LEVEL 37 MEQ/L (21-32); CHLORIDE LEVEL 101 MEQ/L (98-107); CREATININE FOR GFR 0.33 MG/DL (0.55-1.30); GLOMERULAR FILTRATION RATE > 60.0 (>51); GLUCOSE, FASTING 132 MG/DL (70-100); POTASSIUM SERUM 4.4 MEQ/L (3.5-5.1); SODIUM LEVEL 139 MEQ/L (136-145)
[2020-10-14] MEDS: IPRATROPIUM 0.5MG/ALBUTEROL 2.5MG INH SOL UD 3ML (DUONEB) NEB SCH ×4 (07:36→19:42)
[2020-10-14] MEDS: ENOXAPARIN 100MG/1ML SYRINGE (J1650 PER 10MG) SC SCH ×2 (08:56→20:42)
[2020-10-14] MEDS: methylPREDNISolone 40MG 1ML VIAL IV SCH ×2 (08:56→20:42)
[2020-10-14] MEDS: PANTOPRAZOLE 40MG TAB (PROTONIX) PO SCH ×2 (08:57→20:43)
[2020-10-14] MEDS: METOPROLOL TART 25 MG TABLET PO SCH ×2 (08:57→20:43)
[2020-10-14] MEDS: guaiFENesin ER 600 MG TAB PO SCH ×2 (08:57→20:44)
[2020-10-14 10:36] LABS: NT-PRO BNP 221 PG/ML (<125)
--- NOTE | 2020-10-14 11:32 | IPNPDOC ---
Date Seen The patient was seen on 10/14/20. Progress Note SUBJECTIVE: Patient was seen and examined this morning. There have been no adverse events reported overnight. She continues to have a morbilliform rash on her back. She denies any pruritus. Patient denies any chest pain. OBJECTIVE PHYSICAL EXAMINATION: VITAL SIGNS: Please see below. GENERAL: Awake, alert, and oriented. Appears in no acute distress although weak appearing. Sitting up comfortably in chair HEENT: Atraumatic, normocephalic. Eyes are nonicteric. Trachea is midline. Mucous membranes are pink and moist. Weak voice/poor phonation. CARDIOVASCULAR: Normal S1, S2. Tachycardic rate. Regular rate and rhythm. No clicks, rubs, or murmurs. No JVD RESPIRATORY: Diminished breath sounds throughout. No wheezing. Symmetric chest expansion. No accessory muscle use. She has some increased crackles on the right lung nuñez ABDOMINAL: Morbidly obese. Soft, nondistended. Nontender. Normoactive bowel sounds throughout SKIN: Morbilliform rash on patients back extending from shoulder to lower back. No change in rash from yesterday EXTREMITIES: No edema. Full and equal pulses in bilateral upper and lower extremities NEUROLOGICAL: No focal neurological deficits. PSYCHOLOGICAL: Mood and affect appear appropriate for situation LABORATORY DATA, IMAGING STUDIES, MICROBIOLOGY: Please see below. DVT prophylaxis ordered?: Lovenox ASSESSMENT AND PLAN: Patient is a 50 year old female who presented to the [facility] ER with a small bowel obstruction status post bowel resection surgery on , and COVID-19 positive. The patient was asymptomatic with Covid-19 after her surgery but then developed shortness of breath and subsequently developed hypoxemic respiratory failure requiring intubation. Patient was intubated on 09/18/2020 and extubated on 09/23/2020. The patient's been rizvi sitioned to high flow nasal cannula during the day with CPAP at night. She has remained with high oxygen requirements. Bilevel adjustments have been made by pulmonary medicine with improvement in oxygen saturation. PROBLEMS: 1. Acute hypoxemic respiratory failure 2/2 ARDS 2/2 COVID-19 -Acute COVID-19 has resolved. Patient has completed treatment with tocilizumab, remdesivir, and decadron. -Patients hypoxia is multifactorial. 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 She is on solumedrol. She has shown improvement with higher dose steroids. Will continue her on 20mg Solumedrol. This does place her at risk for opportunistic infection. She had been started on Bactrim for PCP prophylaxis however developed a morbilliform rash consistent with drug reaction. Her Bactrim has been stopped. Will hold off on Atovaquone or other anti-fungals as there is no current objective data to suggest a fungal infection. -Pulmonary medicine has been consulted and is following. Recommendations are appreciated. Bilevel settings have been adjusted previously to help with alveolar recruitment. She has made improvement with oxygenation although she still remains hypoxic. Her FiO2 requirement has improved. With bilevel she can come down to an FiO2 of 80-85%. -She is continued on full dose Lovenox for possible PE. She had not received a CTA initially given the severity of her hypoxia. She has shown improvement. She does still desaturate with movement although not as significantly. Could consider performing CTA as she may be able to tolerate. This would help guide the duration of her anticoagulation therapy. Although she likely has pulmonary hypertension given her severe hypoxia and therefore would benefit from anticoagulation regardless -Patient did have an increased infiltrate on chest x-ray on the left yesterday. She is afebrile and without a cough. Inflammatory markers have been trending down . On exam she has some increased crackles on the right. Possible these findings are from atelectasis or possibly fluid although she appears to be euvolemic. BNP today is 221. This is not significantly elevated and is actually less than previously. She has been on the dry side. Her elevated BNP is likely from pulmonary hypertension. At this point do not feel like diuresis would be helpful. -Physical therapy working with patient. She is severely debilitated from her critical illness and long hospitalization 2. Morbilliform Rash -Patient noted to have a morbilliform rash today. Likely 2/2 bactrim. This has been discontinued. Her rash will likely persist for a week or so. Patient states that it does not bother her. If she develops pruritus then could consider Benadryl or a topical steroid to help. Otherwise if she remains asymptomatic then will just monitor 3. Sinus Tachycardia -Patient continues to be in sinus tachycardia. Likely secondary to hypoxia. Echocardiogram has resulted without any significant findings. Her tachycardia is resolving. Her HR is currently 100-110 improved from 130 -Continue Lopressor 25mg BID and Cardizem 60mg q6hr 4. Transient Atrial fibrillation -Patient has remained in sinus. Was noted to have an episode of atrial fibrillation earlier in her hospitalization likely driven by hypoxia 5. Hematuria -Has resolved. Patient is on full dose anticoagulation. Will continue to monitor 6. JAQUELINE -Patient is currently on Bilevel 7. Incarcerated Incisional Hernia -s/p surgical correction on 09/02/2020 -Healing well. No acute complications 8. Physical Deconditioning/Debility -Patient has an extended hospital stay of over 1 month with critical illness. She is severely debilitated. She is working with physical therapy. She will need group home rehab pending clinical improvement. 9. GI prophylaxis -Protonix 10. DVT prophylaxis -Lovenox DISPOSITION: Patient remains critically ill with severe hypoxia. She has made improvement although minimally. 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 VS, I&O, 24H, Fishbone Vital Signs/I&O Vital Signs Date Time Temp Pulse Resp B/P (MAP) Pulse Ox O2 Delivery O2 Flow Rate FiO2 10/14/20 08:57 120 140/81 10/14/20 07:37 80 10/14/20 04:00 97.5 22 96 NIPPV (BIPAP/CPAP) 10/13/20 20:00 40.0 I&O- Last 24 Hours up to 6 AM 10/14/20 06:00 Intake Total 1470 ml Output Total 1350 ml Balance 120 ml Laboratory Data 24H LABS Laboratory Tests 2 10/14/20 05:06: Nucleated Red Blood Cells % (auto) 0.3H, Anion Gap 1L, Glomerular Filtration Rate > 60.0, Calcium Level 9.0, TB-Bsa-Z-Type Natriuretic Peptide 221H CBC/BMP Laboratory Tests 10/14/20 05:06 Microbiology Microbiology 10/12/20 Gram Stain - Final, Complete 10/12/20 Sputum Culture - Final, Complete GME ATTESTATION GME ATTESTATION My faculty preceptor for this patient encounter was physically present during the encounter and was fully available. All aspects of the patient interview, examination, medical decision making process, and medical care plan development were reviewed and approved by the faculty preceptor. The faculty preceptor is aware and concurs with the plan as stated in the body of this note and will attest to such by his/her cosignature. ATTENDING NOTE I, Cecil Apodaca MD, have independently examined this patient and performed my own physical exam, as well as reviewed the documentation and edited where necessary. I have discussed in detail with the resident / student the findings and plan of treatment as documented by the resident / student and edited their note. I agree with their findings and treatment plan and have edited their documentation. SUNDEEP ESCOBAR DO October 14, 2020 11:32 CECIL APODACA MD October 26, 2020 14:12
--- NOTE | 2020-10-14 12:34 | CCN ---
"CRITICAL CARE NOTE DATE: 10/14/2020 SUBJECTIVE:| Patient was seen and examined this morning during bedside rounds. This morning patient was seen by PT and there was attempt to get her standing with heavy amounts of assistance. Patient was unable to completely stand, but she was able to lift her butt off of the chair, which was the first time that she had been able to do so this admission. She was able to also get out of bed into a lounge chair with assistance. She does desat with physical activity down at times into the 70's on the 100% Vapotherm, but she does come up after a few minutes with deep breathing. Patient otherwise states that she has been doing well. She is able to have some more sensation in her feet now and her lower extremities, and reports some tingling sensation as well. She has not had any fevers overnight. She denies any chest pain. She has had very occasional cough, which is not productive. Patient is tolerating her diet well, and denies any abdominal pain. No nausea or vomiting. She does have some gas at times, but is having bowel movements, last episode was yesterday. OBJECTIVE: VITAL SIGNS: Temperature 97.5, pulse 89, respirations 22, blood pressure 139/74, oxygen saturation 96% on 80% BiPAP. GENERAL: Patient is awake, alert and oriented. She does have a hoarse voice. She does not appear to be in any acute distress when resting. HEENT: Normocephalic, atraumatic. Pupils reactive to light bilaterally. Mucous membranes are moist. There is a scab lesion on her lip. NECK: Supple. No tracheal deviation. No probable cervical adenopathy. CARDIAC: Tachycardia. Regular rate and rhythm. Normal S1 and S2 without any murmurs appreciated. PULMONARY: Mildly diminished breath sounds bilaterally with crackles at the bases. ABDOMEN: Obese, soft, nontender to palpation and nondistended. No palpable mass. EXTREMITIES: No significant lower extremity edema noted bilaterally. No clubbing. LABORATORY DATA: WBC 11.4, hemoglobin 12.2, platelets 279,000. Chemistry: Sodium 139, potassium 4.4, chloride 101, bicarb 37, BUN 19, creatinine 0.33, glucose 132. BNP 221. Sputum cytology was negative for malignant cells and GMS stain negative. ASSESSMENT AND PLAN: Ms. Kumari is a 50-year-old female who presented initially with a small bowel obstruction status post surgery. 1. Small bowel obstruction status post surgery: She has had a very prolonged hospital stay secondary to COVID-19 pneumonia with acute hypoxemic respiratory failure and ARDS. Patient was intubated from 09/15 until 09/23, where she was extubated to non-invasive positive pressure ventilation. Patient has continued to require Vapotherm during the day and non-invasive positive pressure ventilation with BiPAP at night. 2. COVID interstitial lung disease with acute hypoxemic respiratory failure: Patient is on Vapotherm during the day when eating. Will continue to wean down FIO2 as tolerated. She is also on BiPAP during the day as well as tolerated and at night, which appears to have been helping with her oxygenation. Will also encourage patient to use incentive spirometer when she is on her Vapotherm and when she is on BiPAP particularly at night. Will encourage her to do semi-prone position to help further improve her oxygenation. 1. Patient is on Solu-Medrol 20 mg I.V. b.i.d. still, which we will continue. She will need a very slow taper at some point. 2. There was concern for possible opportunist infection given her prolonged course of steroids. She was given Bactrim initially for PCP prophylaxis, however, developed a Morbilliform rash with the drug reaction and the Bactrim was discontinued. Patient's sputum cytology was negative on GMS stain for fungal organisms, so we will hold off for now on further medications for PCP prophylaxis. 3. Will continue Lovenox full dose for anticoagulation. She will likely need anticoagulation as well even upon discharge and in rehab. 4. Patient will need a very prolonged course of recovery and aggressive physical rehabilitation. We did continue to encourage her to work with PT as needed and increase her oxygen supplementation as needed. 5. 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 6. Will check a BNP as well as patient has required intermittent diuresis in the past. She has been net positive as well for the last several days. 7. GI prophylaxis: Protonix. 8. DVT prophylaxis: Full dose anticoagulation. 9. Code status: Full code. TOTAL CRITICAL CARE TIME SPENT: Not including any procedures, approximately 40 minutes."
[2020-10-14] MEDS: CALCIUM CARBONATE 500 MG CHEW U/D PO PRN (20:43)
[2020-10-14] MEDS: SERTRALINE HCL 25 MG TABLET PO SCH (20:43)
[2020-10-15] VITALS: BP 134/83
[2020-10-15 04:00] VITALS: BP 137/77
[2020-10-15 04:44] LABS: HEMATOCRIT 41.5 % (36.0-47.0); HEMOGLOBIN 13.1 g/dl (12.0-15.5); MEAN CORPUSCULAR HEMOGLOBIN 30.6 pg (27.0-33.0); MEAN CORPUSCULAR HGB CONC 31.6 g/dl (32.0-36.5); PLATELET COUNT, AUTOMATED 319 10^3/uL (150-450); RED BLOOD COUNT 4.28 10^6/uL (4.00-5.40); WHITE BLOOD COUNT 12.1 10^3/uL (4.0-10.0)
[2020-10-15 05:00] LABS: BLOOD UREA NITROGEN 21 MG/DL (7-18); CALCIUM LEVEL 9.9 MG/DL (8.5-10.1); CARBON DIOXIDE LEVEL 35 MEQ/L (21-32); CHLORIDE LEVEL 99 MEQ/L (98-107); CREATININE FOR GFR 0.39 MG/DL (0.55-1.30); GLOMERULAR FILTRATION RATE > 60.0 (>51); GLUCOSE, FASTING 162 MG/DL (70-100); POTASSIUM SERUM 4.3 MEQ/L (3.5-5.1); SODIUM LEVEL 138 MEQ/L (136-145)
[2020-10-15] MEDS: ALPRAZolam 0.5 MG TAB PO SCH ×3 (06:04→20:51)
[2020-10-15] MEDS: SODIUM CHLORIDE 0.9% INJ 10 ML SYR IV SCH ×2 (06:06→18:16)
[2020-10-15] MEDS: IPRATROPIUM 0.5MG/ALBUTEROL 2.5MG INH SOL UD 3ML (DUONEB) NEB SCH ×4 (07:19→20:29)
[2020-10-15] MEDS ORDERED: BISACODYL 10 MG SUPP PR PRN (07:55)
[2020-10-15 08:00] VITALS: BP 131/68
[2020-10-15] MEDS: methylPREDNISolone 40MG 1ML VIAL IV SCH ×2 (08:53→20:29)
[2020-10-15] MEDS: guaiFENesin ER 600 MG TAB PO SCH ×2 (08:54→20:30)
[2020-10-15] MEDS: ENOXAPARIN 100MG/1ML SYRINGE (J1650 PER 10MG) SC SCH ×2 (08:54→20:29)
[2020-10-15] MEDS: PANTOPRAZOLE 40MG TAB (PROTONIX) PO SCH ×2 (08:54→20:30)
[2020-10-15] MEDS: DOCUSATE SODIUM 100MG CAPSULE PO SCH ×2 (08:54→20:30)
[2020-10-15] MEDS: NYSTATIN 100,000 UNITS/GM TOPICAL PWD 15 GM TOP PRN (08:55)
[2020-10-15] MEDS: METOPROLOL TART 25 MG TABLET PO SCH ×2 (08:55→19:58)
[2020-10-15] MEDS ORDERED: FLEET ENEMA PR PRN (11:30)
--- NOTE | 2020-10-15 11:58 | IPNPDOC ---
Date Seen The patient was seen on 10/15/20. Progress Note SUBJECTIVE: Patient was seen and examined this morning. She does state that she has some itching on her back. She also complains of some constipation. She otherwise denies any new complaints. She does remain hypoxic. She does desaturate with movement although this has improved. OBJECTIVE PHYSICAL EXAMINATION: VITAL SIGNS: Please see below. GENERAL: Awake, alert, and oriented. Appears in no acute distress although weak appearing. Sitting up comfortably in chair HEENT: Atraumatic, normocephalic. Eyes are nonicteric. Trachea is midline. Mucous membranes are pink and moist. Weak voice/poor phonation. CARDIOVASCULAR: Normal S1, S2. Tachycardic rate. Regular rate and rhythm. No clicks, rubs, or murmurs. No JVD RESPIRATORY: Diminished breath sounds throughout. No wheezing. Symmetric chest expansion. No accessory muscle use. Fine crackles in the bases ABDOMINAL: Morbidly obese. Soft, nondistended. Nontender. Normoactive bowel sounds throughout SKIN: Morbilliform rash on patients back extending from shoulder to lower back. No change in rash fro previous examination EXTREMITIES: No edema. Full and equal pulses in bilateral upper and lower extremities NEUROLOGICAL: No focal neurological deficits. PSYCHOLOGICAL: Mood and affect appear appropriate for situation LABORATORY DATA, IMAGING STUDIES, MICROBIOLOGY: Please see below. DVT prophylaxis ordered?: Lovenox ASSESSMENT AND PLAN: Patient is a 50 year old female who presented to the [facility] ER with a small bowel obstruction status post bowel resection surgery on 09/02/2020, and COVID-19 positive. The patient was asymptomatic with Covid-19 after her surgery but then developed shortness of breath and subsequently developed hypoxemic respiratory failure requiring intubation. Patient was intubated on 09/18/2020 and extubated on 09/23/2020. The patient's been transitioned to high flow nasal cannula during the day with CPAP at night. She has remained with high oxygen requirements. Bilevel adjustments have been made by pulmonary medicine with improvement in oxygen saturation. PROBLEMS: 1. Acute hypoxemic respiratory failure 2/2 ARDS 2/2 COVID-19 -Acute COVID-19 has resolved. Patient has completed treatment with tocilizu mab, remdesivir, and decadron. -Patients hypoxia is multifactorial. 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 She is on solumedrol. She has shown improvement with higher dose steroids. Will continue her on 20mg Solumedrol. This does place her at risk for opportunistic infection. She had been started on Bactrim for PCP prophylaxis however developed a morbilliform rash consistent with drug reaction. Her Bactrim has been stopped. Will hold off on Atovaquone or other anti-fungals as there is no current objective data to suggest a fungal infection. -Pulmonary medicine has been consulted and is following. Recommendations are appreciated. Bilevel settings have been adjusted previously to help with alveolar recruitment. She has made improvement with oxygenation although she still remains hypoxic. Her FiO2 requirement has improved. With bilevel she can come down to an FiO2 of 80-85%. -She is continued on full dose Lovenox for possible PE. She had not received a CTA initially given the severity of her hypoxia. She has shown improvement. She does still desaturate with movement although not as significantly. Could consider performing CTA as she may be able to tolerate. This would help guide the duration of her anticoagulation therapy. Although she likely has pulmonary hypertension given her severe hypoxia and therefore would benefit from anticoagulation regardless -Will defer duration of anticoagulation to Pulmonary medicine in regards to whether she will need life long -Patient appears euvolemic. She is net positive. Will monitor for volume overload -Physical therapy working with patient. She is severely debilitated from her critical illness and long hospitalization 2. Morbilliform Rash -Patient noted to have a morbilliform rash today. Likely 2/2 bactrim. Bactrim discontinued. She states that she does have some itchiness today. Will give a prn order for Benadryl 3. Sinus Tachycardia -Patient continues to be in sinus tachycardia. Likely secondary to hypoxia. Echocardiogram has resulted without any significant findings. Her tachycardia is resolving. Her HR is currently 100-110 improved from 130 -Continue Lopressor 25mg BID and Cardizem 60mg q6hr 4. Transient Atrial fibrillation -Patient has remained in sinus. Was noted to have an episode of atrial fi brillation earlier in her hospitalization likely driven by hypoxia 5. Hematuria -Has resolved. Patient is on full dose anticoagulation. Will continue to monitor 6. JAQUELINE -Patient is currently on Bilevel 7. Incarcerated Incisional Hernia -s/p surgical correction on 09/02/2020 -Healing well. No acute complications 8. Physical Deconditioning/Debility -Patient has an extended hospital stay of over 1 month with critical illness. She is severely debilitated. She is working with physical therapy. She will [facility] pending clinical improvement. 9. Constipation -Bowel regimen ordered 10. GI prophylaxis -Protonix 11. DVT prophylaxis -Lovenox DISPOSITION: Patient remains critically ill with severe hypoxia. She has made improvement although minimally. 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 VS, I&O, 24H, Fishbone Vital Signs/I&O Vital Signs Date Time Temp Pulse Resp B/P (MAP) Pulse Ox O2 Delivery O2 Flow Rate FiO2 10/15/20 10:00 112 28 91 NIPPV (BIPAP/CPAP) 75 10/15/20 08:55 131/68 10/15/20 08:00 97.8 35.0 I&O- Last 24 Hours up to 6 AM 10/15/20 06:00 Intake Total 1520 ml Output Total 1630 ml Balance -110 ml Laboratory Data 24H LABS Laboratory Tests 2 10/15/20 04:16: Nucleated Red Blood Cells % (auto) 0.2H, Anion Gap 4L, Glomerular Filtration Ra te > 60.0, Calcium Level 9.9 CBC/BMP Laboratory Tests 10/15/20 04:16 Microbiology Microbiology 10/12/20 Gram Stain - Final, Complete 10/12/20 Sputum Culture - Final, Complete GME ATTESTATION GME ATTESTATION My faculty preceptor for this patient encounter was physically present during the encounter and was fully available. All aspects of the patient interview, examination, medical decision making process, and medical care plan development were reviewed and approved by the faculty preceptor. The faculty preceptor is aware and concurs with the plan as stated in the body of this note and will attest to such by his/her cosignature. ATTENDING NOTE I, Cecil Carr MD, have independently examined this patient and performed my own physical exam, as well as reviewed the documentation and edited where necessary. I have discussed in detail with the resident / student the findings and plan of treatment as documented by the resident / student and edited their note. I agree with their findings and treatment plan and have edited their documentation. SUNDEEP ESCOBAR DO October 15, 2020 11:58 CECIL CARR MD October 26, 2020 14:15
[2020-10-15 12:30] VITALS: BP 131/93
[2020-10-15] MEDS ORDERED: LACTULOSE 20 GM/30 ML SYRUP UD PO ONE (13:00)
[2020-10-15] MEDS: ONDANSETRON 4MG/2ML VIAL IV PRN (14:53)
--- NOTE | 2020-10-15 15:35 | CCN ---
CRITICAL CARE NOTE DATE: 10/15/2020 SUBJECTIVE: The patient was seen and examined this morning during bedside rounds. Yesterday, the patient continued to attempt transfer and stand with the assistance of PT. She does have desaturation noted with exertion, but generally has been able to wean down slightly on her FiO2 requirements on the Vapotherm and on her BiPAP. The patient this morning was down to 35% L/min and 80% FiO2 on Vapotherm and on BiPAP was able to wean down at times to 70% FiO2. The patient does have some occasional slight cough, which is nonproductive. She does not feel is has significantly worsened. She denies any chest pain. She has not had any fevers overnight. She does have some occasional abdominal discomfort across the lower abdomen, as well as some increased gas. Her last bowel movement was on Sunday overnight. She did not have any further bowel movements yesterday. OBJECTIVE: VITAL SIGNS: Temperature 96.7, pulse 95, respirations 30, blood pressure 137/77, O2 saturation 95% on 70% FiO2 on BiPAP. INTAKE AND OUTPUT: In 1.2 liters, out 1.5 liters, net negative 300. GENERAL: The patient is an obese female sitting in the chair in no acute distress. She is awake, alert, and oriented. She does have a hoarse voice. HEENT: Normocephalic, atraumatic. Pupils reactive to light bilaterally. Moist mucous membranes noted. There is a scab lesion on her lip. NECK: Supple. No tracheal deviation. No palpable cervical adenopathy. CARDIAC: Tachycardic, regular rate and rhythm. Normal S1, S2 without any murmurs appreciated. PULMONARY: Diminished breath sounds generally bilaterally with crackles at the bases. ABDOMEN: Obese, soft, mild tenderness in the lower quadrants to palpation, and nondistended. There is no palpable mass. There are multiple areas of ecchymosis noted on the abdomen. EXTREMITIES: There is no significant lower extremity noted bilaterally. No clubbing. There is some improvement in her maculopapular drug rash that was noted mostly on her trunk, back, and to a lesser degree on the abdomen. LABORATORY DATA: WBC 12.1, hemoglobin 13.1, platelets 319,000. Chemistries with sodium 138, potassium 4.3, chloride 99, bicarb 35, BUN 21, creatinine 0.39, glucose 112. ASSESSMENT AND PLAN: Mrs. Kumari is a 50-year-old female who presents initially with a small bowel obstruction and is status post surgery. She then had a very prolonged hospital stay secondary to COVID-19 pneumonia with acute hypoxic respiratory failure and acute respiratory distress syndrome (ARDS). Post-intubation, the patient was noted to have COVID related interstitial lung disease, as well as critical illness myopathy and steroid-induced myopathy. - The patient continues to have significant oxygen requirements with Vapotherm during the day while eating, as well as noninvasive positive pressure ventilation with BiPAP at night and during the day as tolerated. She has been making some improvements; however, in terms of slowly weaning down her FiO2 and oxygen requirements. - Continue with incentive spirometer while she is on Vapotherm and continue with her BiPAP during the day, as well as night as tolerated. The patient will also continue to do semi-prone position to help further her oxygenation. - Continue with Solu-Medrol 20 mg IV b.i.d. - Continue Lovenox full dose for anticoagulation. She will likely need anticoagulation as well upon discharge. - The patient will continue to work with PT/OT. She will require aggressive physical therapy given her critical illness myopathy and steroid-induced myopathy. She will, however, continue to require significant amounts of oxygen supplementation and so, we did discuss with the patient the possibility of, if feasible, transfer to an LTAC where they may be able to manage her oxygen requirements, but also provide more aggressive physical therapy than she can receive while inpatient. Gastrointestinal (GI) prophylaxis with protonix Deep vein thrombosis (DVT) prophylaxis with full dose anticoagulation. Code status: FULL CODE. PFS consult has been placed not only to help with the patient's insurance issues and disability, but also for possible placement in LTAC if she qualifies. TOTAL CRITICAL CARE TIME: Not including procedures approximately 35 minutes. MTDD
[2020-10-15 16:30] VITALS: BP 131/75
[2020-10-15 20:00] VITALS: BP 132/88
[2020-10-15] MEDS: SERTRALINE HCL 25 MG TABLET PO SCH (20:29)
[2020-10-16] VITALS: BP 124/87
[2020-10-16] MEDS: ACETAMINOPHEN TAB 650MG DOSE (2X325MG) PO PRN ×2 (02:55→20:21)
[2020-10-16 04:00] VITALS: BP 127/71
[2020-10-16] MEDS: ALPRAZolam 0.5 MG TAB PO SCH ×4 (06:00→21:02)
[2020-10-16] MEDS: SODIUM CHLORIDE 0.9% INJ 10 ML SYR IV SCH ×2 (06:19→17:28)
[2020-10-16 06:37] LABS: HEMATOCRIT 41.5 % (36.0-47.0); HEMOGLOBIN 13.1 g/dl (12.0-15.5); MEAN CORPUSCULAR HEMOGLOBIN 30.5 pg (27.0-33.0); MEAN CORPUSCULAR HGB CONC 31.6 g/dl (32.0-36.5); MEAN CORPUSCULAR VOLUME 96.5 fl (80.0-96.0); PLATELET COUNT, AUTOMATED 292 10^3/uL (150-450); WHITE BLOOD COUNT 11.3 10^3/uL (4.0-10.0)
[2020-10-16 07:05] LABS: BLOOD UREA NITROGEN 30 MG/DL (7-18); CALCIUM LEVEL 9.4 MG/DL (8.5-10.1); CARBON DIOXIDE LEVEL 34 MEQ/L (21-32); CHLORIDE LEVEL 100 MEQ/L (98-107); CREATININE FOR GFR 0.38 MG/DL (0.55-1.30); GLOMERULAR FILTRATION RATE > 60.0 (>51); GLUCOSE, FASTING 98 MG/DL (70-100); POTASSIUM SERUM 3.9 MEQ/L (3.5-5.1); SODIUM LEVEL 138 MEQ/L (136-145)
[2020-10-16] MEDS: IPRATROPIUM 0.5MG/ALBUTEROL 2.5MG INH SOL UD 3ML (DUONEB) NEB SCH ×4 (07:23→19:51)
[2020-10-16 08:24] VITALS: BP 133/74
[2020-10-16] MEDS: DOCUSATE SODIUM 100MG CAPSULE PO SCH ×2 (09:00→20:22)
--- NOTE | 2020-10-16 09:20 | IPNPDOC ---
Date Seen The patient was seen on 10/16/20. Progress Note SUBJECTIVE: Patient was seen and examined at bedside this morning. Continues to be in Vapotherm 35 L/m at 85%. No acute events overnight. Patient is still acutely short of breath when speaking. Saturating at between 85 and 90%. Patient denies any fevers, chills, chest pain, palpitations, nausea, vomiting, diarrhea. No swelling of the right lower extremity deep venous duplex was ordered. Patient is afebrile. OBJECTIVE PHYSICAL EXAMINATION: VITAL SIGNS: please see below General: NAD, comfortable in bed, obese HEENT: PERRLA, EOMI, sclerae clear Neck: supple, normal ROM, no JVD Respiratory: Diminished air entry, mild crackles at both lung bases. CVS: tachycardic, normal S1, S2, no murmurs Abdo: soft, no masses, no hepatosplenomegaly, BS+, no rebound tenderness, ecchymoses noted on skin of abdomen Skin: improvement in maculopapular rash Extremities: Right lower extremity edematous, 1+ worse than left. MSK: no joint deformities, normal ROM Neuro: no focal neuro deficits, moving all 4 extremities, CN2-12 intact. Strength 5/5 in all 4 extremities. No nystagmus. Psych: calm, cooperative, AAO x 3 LABORATORY DATA, IMAGING STUDIES, MICROBIOLOGY: Please see below. ASSESSMENT AND PLAN: Patient is a 50 year old female who presented to the [facility] with a small bowel obstruction status post bowel resection surgery on 09/02/2020, and COVID-19 positive. The patient was asymptomatic with Covid-19 after her surgery but then developed shortness of breath and subsequently developed hypoxemic respiratory failure requiring intubation. Patient was intubated on 09/18/2020 and extubated on 09/23/2020. The patient's been transitioned to high flow nasal cannula during the day with CPAP at night. She has remained with high oxygen requirements. Bilevel adjustments have been made by pulmonary medicine with improvement in oxygen saturation. PROBLEMS: #. Acute hypoxemic respiratory failure 2/2 ARDS 2/2 COVID-19 -Acute COVID-19 has resolved. Patient has completed treatment with tocilizumab, remdesivir, and decadron. -Patients hypoxia is multifactorial. 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 - c/w 20mg Solumedrol as shown improvement on higher dose steroids. Risk for opportunistic infection. - unable to tolerate Bactrim for PCP ppx as developed drug eruption -Pulmonary service consulted. Recommendations are appreciated. Managing bipap settings. Patient has difficulty in complying with bipap and wears mask for limited amount of time overnight. Encouraged to wear mask as much as possible when in bed. -She is continued on full dose Lovenox for possible PE. Venous duplex negative. -Will defer duration of anticoagulation to Pulmonary medicine in regards to whether she will need life long -Patient appears euvolemic - PT working with patient for debility, given prolonged hospitalization. #RLE edema - check venous duplex #Questionable pna on CXR - patient afebrile, without leukocytosis - repeat CXR on 10/16/20 - continue to monitor for fevers, WBC elevation - no cough at this time #. Morbilliform Rash -thought to be 2/2 bactrim, improved after DC. #. Sinus Tachycardia -Patient continues to be in sinus tachycardia. Likely secondary to hypoxia. Echocardiogram has resulted without any significant findings. Her tachycardia is resolving. Her HR is currently 100-110 improved from 130 -Continue Lopressor 25mg BID and Cardizem 60mg q6hr #. Transient Atrial fibrillation -Patient has remained in sinus. Was noted to have an episode of atrial fibrillation earlier in her hospitalization likely driven by hypoxia #. Hematuria -Has resolved. Patient is on full dose anticoagulation. Will continue to monitor #. JAQUELINE -Patient is currently on Bilevel #. Incarcerated Incisional Hernia -s/p surgical correction on 09/02/2020 -Healing well. No acute complications #. Physical Deconditioning/Debility -Patient has an extended hospital stay of over 1 month with critical illness. She is severely debilitated. She is working with physical therapy. She will need skilled nursing rehab pending clinical improvement. #. Constipation -Bowel regimen ordered #. GI prophylaxis -Protonix #. DVT prophylaxis -Lovenox DISPOSITION: Patient remains critically ill with severe hypoxia. She has made improvement although minimally. 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 hospitalization with medical terminologist rehabilitation VS, I&O, 24H, Fishbone Vital Signs/I&O Vital Signs Date Time Temp Pulse Resp B/P (MAP) Pulse Ox O2 Delivery O2 Flow Rate FiO2 10/16/20 08:24 98.1 112 29 133/74 (93) 91 HVNI-Vapotherm 35.0 85 I&O- Last 24 Hours up to 6 AM 10/16/20 06:00 Intake Total 1440 ml Output Total 1150 ml Balance 290 ml Laboratory Data 24H LABS Laboratory Tests 2 10/16/20 06:20: Nucleated Red Blood Cells % (auto) 0.4H, Anion Gap 4L, Glomerular Filtration Rate > 60.0, Calcium Level 9.4 CBC/BMP Laboratory Tests 10/16/20 06:20 Microbiology Microbiology 10/12/20 Gram Stain - Final, Complete 10/12/20 Sputum Culture - Final, Complete JUANA TAYLOR MD October 16, 2020 09:20
[2020-10-16] MEDS: methylPREDNISolone 40MG 1ML VIAL IV SCH ×2 (09:32→20:20)
[2020-10-16] MEDS: METOPROLOL TART 25 MG TABLET PO SCH ×2 (09:33→20:22)
[2020-10-16] MEDS: guaiFENesin ER 600 MG TAB PO SCH ×2 (09:33→20:21)
[2020-10-16] MEDS: ENOXAPARIN 100MG/1ML SYRINGE (J1650 PER 10MG) SC SCH ×2 (09:33→20:20)
[2020-10-16] MEDS: PANTOPRAZOLE 40MG TAB (PROTONIX) PO SCH ×2 (09:33→20:22)
--- NOTE | 2020-10-16 10:26 | REP ---
INDICATION: eval for pna. COMPARISON: 10/12/2020. TECHNIQUE: Single portable AP view of the chest was performed. FINDINGS: There is a right arm PICC line with the tip in the superior vena cava. Metallic plate and screws are seen in the lower cervical spine. The heart is not enlarged. The mediastinal silhouette is unremarkable. There are diffuse bilateral infiltrates. These have not changed on the right. They have improved on the left. There is mild elevation of the left hemidiaphragm. IMPRESSION: Stable diffuse right lung infiltrate. Diffuse left lung infiltrate has improved since prior study. <Electronically signed by Ruy Taylor > 10/16/20 1029
--- NOTE | 2020-10-16 10:27 | REP ---
INDICATION: r/o DVT COMPARISON: None. TECHNIQUE: Real time compression and duplex Doppler interrogation of the right lower extremity deep venous system is performed. FINDINGS: The right common femoral, superficial femoral and popliteal veins are fully compressible with transducer pressure and demonstrate normal spontaneous and phasic flow, without evidence of deep venous thrombosis. IMPRESSION: No evidence of deep venous thrombosis of the right lower extremity femoral popliteal venous system. <Electronically signed by Ruy Taylor > 10/16/20 1021
[2020-10-16 12:00] VITALS: BP 118/65
--- NOTE | 2020-10-16 13:51 | CCN ---
CRITICAL CARE NOTE DATE: 10/16/2020 Patient was seen and examined this morning during bedside rounds. Patient had no acute events noted overnight. She was, however, not as compliant with her bilevel positive airway pressure (BiPAP) overnight, wearing it for perhaps only 25% of the night. She has also been trying to wear her VapoTherm more during the day. Patient otherwise has not had any fevers overnight. She denies noticing any change in her breathing. No chest pain. No worsening cough. She did have a bowel movement yesterday, and she did notice improvement in her lower abdominal pain previously. She continues to report significant gas. She is also complaining of some fullness now in her left ear. OBJECTIVE: VITAL SIGNS: Temperature 97.6, pulse 100, respirations 30, blood pressure 127/71, oxygen saturation 91% on VapoTherm at 35 liter per minute with 85% FiO2. Ins 1.7, out 1.5 liters, net positive 230 mL. GENERAL: Patient is an obese female. Is lying in the bed in no acute distress. She awake, alert, and oriented times three. She has a hoarse voice noted. HEENT: Normocephalic, atraumatic. Pupils react to light bilaterally. Moist mucous membranes noted. NECK: Supple with no tracheal deviation. No palpable cervical lymphadenopathy. CARDIAC: Tachycardic, regular rate and rhythm. Normal S1, S2 without any appreciable murmurs. PULMONARY: Diminished breath sounds bilaterally with few crackles at the bases. ABDOMEN: Obese, soft. There is no significant tenderness noted now in the lower quadrants. There are multiple areas of ecchymosis noted on the abdomen. EXTREMITIES: There is no significant lower extremity edema noted bilaterally. There is no calf tenderness. There is improvement in her maculopapular diffuse drug rash. LABORATORY DATA: WBC 11.3, hemoglobin 13.1, platelets 292. Chemistry: Sodium is 138, potassium is 3.9, chloride is 100, bicarbonate 34, BUN 30, creatinine 0.38, glucose 98. IMAGING: Lower extremity duplex negative for deep venous thrombosis (DVT) bilaterally. Chest x-ray this morning shows continued increased diffuse interstitial markings bilaterally. There was an area of more dense opacity in the left upper lobe, which appears improved from the previous x-ray. There is mild left hemidiaphragm elevation. ASSESSMENT AND PLAN: Ms. Kumari is a 50-year-old female who presented initially with small-bowel obstruction and is status post surgery. She also was found to be COVID-19 positive and then had a very prolonged hospital stay secondary to COVID-19 pneumonia with acute respiratory distress syndrome (ARDS) and post COVID-related interstitial lung disease. 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 Patient was requiring less amounts of oxygen requirements on her VapoTherm with the initiation of BiPAP during the day and at night. She has been less compliant, however, with her BiPAP in the past 24 hours, and she did need slight increase in her VapoTherm FiO2 requirements. Will continue to stress with the patient the importance of using her BiPAP at night as well as the during the day as tolerated. She should be on VapoTherm mostly when eating or doing other physical activity and when in bed should be on her BiPAP. Will continue to slowly wean down her FiO2 as tolerated to maintain an oxygen saturation above 88%. Will to encourage patient to use incentive spirometer while on VapoTherm as well as a semi-prone position at night. Continue with Solu-Medrol 20 mg intravenous (IV) twice a day. Will attempt to 15 mg twice a day tomorrow. Continue Lovenox full dose for anticoagulation. Her lower extremity duplex was negative. She is at continued high risk for deep venous thrombosis (DVT)/ pulmonary emboli (PE), and she likely does have a degree of pulmonary hypertension at this point with her intersitial lung disease and with her chronic hypoxic respiratory failure Continue to encourage patient to work aggressively with physical therapy (PT)/occupational therapy (OT). She will need aggressive physical therapy upon discharge, and given her significant oxygen requirements will followup with social work about the possibility of transfer to a long-term acute care (LTAC) facility. Gastrointestinal (GI) prophylaxis. Deep venous thrombosis (DVT) prophylaxis. Full-dose anticoagulation. Code status. Full code. TOTAL CRITICAL CARE TIME, NOT INCLUDING PROCEDURES: Approximately 24 minutes.
[2020-10-16 16:00] VITALS: BP 112/62
[2020-10-16 19:19] LABS: ASPERGILLUS FLAVUS ABY Negative (Neg:<1:1); ASPERGILLUS FUMIGATUS ABY Negative (Neg:<1:1); ASPERGILLUS GALACTOMANNAN AG 0.03 Index (0.00-0.49); ASPERGILLUS NIGER ABY Negative (Neg:<1:1); FUNGITELL, SERUM <31 pg/mL (<80)
[2020-10-16 20:00] VITALS: BP 123/70
[2020-10-16] MEDS: SERTRALINE HCL 25 MG TABLET PO SCH (20:20)
[2020-10-17] VITALS: BP 128/70
[2020-10-17 04:00] VITALS: BP 121/59
[2020-10-17] MEDS: ALPRAZolam 0.5 MG TAB PO SCH ×3 (05:38→21:07)
[2020-10-17] MEDS: SODIUM CHLORIDE 0.9% INJ 10 ML SYR IV SCH ×2 (05:39→17:19)
[2020-10-17 05:56] LABS: HEMATOCRIT 41.6 % (36.0-47.0); HEMOGLOBIN 13.5 g/dl (12.0-15.5); MEAN CORPUSCULAR HEMOGLOBIN 31.1 pg (27.0-33.0); MEAN CORPUSCULAR HGB CONC 32.5 g/dl (32.0-36.5); MEAN CORPUSCULAR VOLUME 95.9 fl (80.0-96.0); PLATELET COUNT, AUTOMATED 311 10^3/uL (150-450); RED BLOOD COUNT 4.34 10^6/uL (4.00-5.40); WHITE BLOOD COUNT 11.2 10^3/uL (4.0-10.0)
[2020-10-17 06:24] LABS: BLOOD UREA NITROGEN 21 MG/DL (7-18); CALCIUM LEVEL 9.1 MG/DL (8.5-10.1); CARBON DIOXIDE LEVEL 33 MEQ/L (21-32); CHLORIDE LEVEL 102 MEQ/L (98-107); CREATININE FOR GFR 0.33 MG/DL (0.55-1.30); GLOMERULAR FILTRATION RATE > 60.0 (>51); GLUCOSE, FASTING 131 MG/DL (70-100); POTASSIUM SERUM 4.4 MEQ/L (3.5-5.1); SODIUM LEVEL 139 MEQ/L (136-145)
[2020-10-17] MEDS: IPRATROPIUM 0.5MG/ALBUTEROL 2.5MG INH SOL UD 3ML (DUONEB) NEB SCH ×4 (07:43→19:53)
[2020-10-17 08:00] VITALS: BP 129/64
[2020-10-17] MEDS: DOCUSATE SODIUM 100MG CAPSULE PO SCH ×2 (09:00→21:00)
[2020-10-17] MEDS: guaiFENesin ER 600 MG TAB PO SCH ×2 (09:29→21:07)
[2020-10-17] MEDS: ENOXAPARIN 100MG/1ML SYRINGE (J1650 PER 10MG) SC SCH ×2 (09:29→21:08)
[2020-10-17] MEDS: methylPREDNISolone 40MG 1ML VIAL IV SCH ×2 (09:29→21:07)
[2020-10-17] MEDS: PANTOPRAZOLE 40MG TAB (PROTONIX) PO SCH ×2 (09:29→21:07)
[2020-10-17] MEDS: METOPROLOL TART 25 MG TABLET PO SCH ×2 (09:30→21:11)
--- NOTE | 2020-10-17 09:32 | IPN ---
PROGRESS NOTE DATE: 10/17/2020 SUBJECTIVE: Senia is seen in the ICU, seems to be making slow steady progress. She says she feels stronger everyday. She actually just wanted her ears checked today because her right ear feels "full". She has prolonged hospitalization and her records were reviewed at length. Initially she presented with small bowel obstruction, status post surgery, was COVID positive, developed COVID pneumonia, acute respiratory distress syndrome, post-COVID related interstitial lung disease, critical illness myopathy and steroid-induced myopathy. OBJECTIVE: VITAL SIGNS: Afebrile, 121/59, pulse is around 100. GENERAL: General appearance: She is alert, conversant, no distress. HEENT: She has an air fluid level behind each TM. There is no significant cerumen bilaterally. LUNGS: Few wheezes and crackles. HEART: Regular rhythm. ABDOMEN: Soft, obese, nontender. EXTREMITIES: Trace peripheral edema. LABS: CBC unremarkable. CMP unremarkable. Potassium 4.4. ASSESSMENT: 1. Serous otitis media probably from prolonged bedrest, no indication for antibiotic therapy. 2. Acute hypoxic respiratory failure. She is on full dose Lovenox, steroid therapy and has pulmonary following. 3. Sinus tachycardia secondary to hypoxemia and critical illness. Echocardiogram was performed. 4. Atrial fibrillation, paroxysmal, currently in sinus rhythm, no recurrence.
[2020-10-17 12:00] VITALS: BP 126/66
[2020-10-17 15:38] VITALS: BP 112/69
[2020-10-17 20:00] VITALS: BP 135/79
[2020-10-17] MEDS: SERTRALINE HCL 25 MG TABLET PO SCH (21:07)
[2020-10-18] VITALS (7 sets, daily range): BP systolic 119–146; BP diastolic 71–82
[2020-10-18] MEDS: ALPRAZolam 0.5 MG TAB PO SCH ×3 (05:39→22:15)
[2020-10-18] MEDS: SODIUM CHLORIDE 0.9% INJ 10 ML SYR IV SCH ×2 (05:40→18:21)
[2020-10-18 06:11] LABS: HEMATOCRIT 42.1 % (36.0-47.0); HEMOGLOBIN 13.4 g/dl (12.0-15.5); MEAN CORPUSCULAR HEMOGLOBIN 30.5 pg (27.0-33.0); MEAN CORPUSCULAR HGB CONC 31.8 g/dl (32.0-36.5); MEAN CORPUSCULAR VOLUME 95.7 fl (80.0-96.0); PLATELET COUNT, AUTOMATED 318 10^3/uL (150-450); WHITE BLOOD COUNT 11.1 10^3/uL (4.0-10.0)
[2020-10-18 06:29] LABS: BLOOD UREA NITROGEN 22 MG/DL (7-18); CALCIUM LEVEL 9.5 MG/DL (8.5-10.1); CARBON DIOXIDE LEVEL 32 MEQ/L (21-32); CHLORIDE LEVEL 101 MEQ/L (98-107); CREATININE FOR GFR 0.32 MG/DL (0.55-1.30); GLOMERULAR FILTRATION RATE > 60.0 (>51); GLUCOSE, FASTING 143 MG/DL (70-100); POTASSIUM SERUM 4.3 MEQ/L (3.5-5.1); SODIUM LEVEL 138 MEQ/L (136-145)
[2020-10-18] MEDS: IPRATROPIUM 0.5MG/ALBUTEROL 2.5MG INH SOL UD 3ML (DUONEB) NEB SCH ×4 (07:28→19:50)
[2020-10-18] MEDS: DOCUSATE SODIUM 100MG CAPSULE PO SCH ×2 (09:00→20:26)
[2020-10-18] MEDS: METOPROLOL TART 25 MG TABLET PO SCH ×2 (09:09→20:25)
[2020-10-18] MEDS: methylPREDNISolone 40MG 1ML VIAL IV SCH ×2 (09:09→20:26)
[2020-10-18] MEDS: guaiFENesin ER 600 MG TAB PO SCH ×2 (09:10→20:25)
[2020-10-18] MEDS: ENOXAPARIN 100MG/1ML SYRINGE (J1650 PER 10MG) SC SCH ×2 (09:10→20:26)
[2020-10-18] MEDS: PANTOPRAZOLE 40MG TAB (PROTONIX) PO SCH ×2 (09:10→20:25)
--- NOTE | 2020-10-18 10:01 | IPN ---
PROGRESS NOTE DATE: 10/18/2020 SUBJECTIVE: Senia feels about the same as yesterday, a little bit of abdominal gas, less short of breath, overall feeling stronger daily. OBJECTIVE: VITAL SIGNS: Stable. LUNGS: Diffuse breath sounds, clear. HEART: Regular rate and rhythm. ABDOMEN: Soft, mildly distended. Good bowel sounds, nontender. EXTREMITIES: Trace peripheral edema. LABORATORY DATA: CBC and electrolytes stable from yesterday. IMPRESSION: 1. Hypoxic respiratory failure, continue full-dose Lovenox and steroid therapy. 2. Sinus tachycardia, echocardiogram is pending. 3. Paroxysmal atrial fibrillation, sinus rhythm. 4. Abdominal distention, has good bowel sounds. No signs of ileus or intestinal obstruction at this point.
[2020-10-18] MEDS: SERTRALINE HCL 25 MG TABLET PO SCH (20:25)
[2020-10-19] VITALS (8 sets, daily range): BP systolic 113–160; BP diastolic 62–89
[2020-10-19 05:41] LABS: HEMATOCRIT 42.3 % (36.0-47.0); HEMOGLOBIN 13.6 g/dl (12.0-15.5); MEAN CORPUSCULAR HGB CONC 32.2 g/dl (32.0-36.5); MEAN CORPUSCULAR VOLUME 96.4 fl (80.0-96.0); PLATELET COUNT, AUTOMATED 332 10^3/uL (150-450); RED BLOOD COUNT 4.39 10^6/uL (4.00-5.40); WHITE BLOOD COUNT 12.9 10^3/uL (4.0-10.0)
[2020-10-19 06:06] LABS: BLOOD UREA NITROGEN 27 MG/DL (7-18); CALCIUM LEVEL 9.3 MG/DL (8.5-10.1); CARBON DIOXIDE LEVEL 31 MEQ/L (21-32); CHLORIDE LEVEL 101 MEQ/L (98-107); CREATININE FOR GFR 0.35 MG/DL (0.55-1.30); GLOMERULAR FILTRATION RATE > 60.0 (>51); GLUCOSE, FASTING 137 MG/DL (70-100); POTASSIUM SERUM 4.4 MEQ/L (3.5-5.1); SODIUM LEVEL 138 MEQ/L (136-145)
[2020-10-19] MEDS: SODIUM CHLORIDE 0.9% INJ 10 ML SYR IV SCH ×2 (06:15→18:16)
[2020-10-19] MEDS: ALPRAZolam 0.5 MG TAB PO SCH ×3 (06:16→21:39)
[2020-10-19] MEDS: IPRATROPIUM 0.5MG/ALBUTEROL 2.5MG INH SOL UD 3ML (DUONEB) NEB SCH ×4 (07:20→19:33)
[2020-10-19] MEDS: guaiFENesin ER 600 MG TAB PO SCH ×2 (09:17→21:38)
[2020-10-19] MEDS: DOCUSATE SODIUM 100MG CAPSULE PO SCH ×2 (09:17→21:38)
[2020-10-19] MEDS: PANTOPRAZOLE 40MG TAB (PROTONIX) PO SCH ×2 (09:17→21:38)
[2020-10-19] MEDS: methylPREDNISolone 40MG 1ML VIAL IV SCH ×2 (09:17→21:39)
[2020-10-19] MEDS: ENOXAPARIN 100MG/1ML SYRINGE (J1650 PER 10MG) SC SCH ×2 (09:17→21:39)
[2020-10-19] MEDS: METOPROLOL TART 25 MG TABLET PO SCH ×2 (09:18→21:41)
--- NOTE | 2020-10-19 11:37 | CCN ---
CRITICAL CARE NOTE DATE: 10/19/2020 SUBJECTIVE: The patient was seen and examined this morning during bedside rounds. The patient has been more compliant with wearing her BiPAP at night after encouragement. She does use Vapotherm during the day particularly when eating but otherwise has been wearing her BiPAP throughout the day as well while in bed. Will attempt to increase the amount of time that she is on Vapotherm but if she does have any desaturation or is requiring increased FIO2 on Vapotherm would place her back on BiPAP to help with recruitment. The patient does otherwise use her incentive spirometer when she is on Vapotherm. She denies any significant chest pain today. She had not had any worsening cough or dyspnea. She is noticing improvement in her lower extremity strength as well as sensation now in her lower extremities up to her hip. OBJECTIVE: VITAL SIGNS: Temperature is 98.1, pulse 104, respirations 24, blood pressure 160/67, O2 sat 96% on BiPAP at 70% FIO2. INPUT AND OUTPUT: In 1.2 liters, out 1.0 liters. GENERAL APPEARANCE: The patient is an obese female, she is sitting up on the side of the bed in no acute distress. She is mildly tachypneic with exertion but is able to speak in complete sentences. She does have a hoarse voice. HEENT: Normocephalic, atraumatic. Pupils react to light bilaterally. Moist mucous membranes noted. NECK: Supple with no tracheal deviation. No palpable cervical adenopathy. CARDIAC: Tachycardic, regular rate and rhythm. Normal S1 and S2 without any appreciable murmurs. PULMONARY: Diminished breath sounds bilaterally, a few crackles at the bases. ABDOMEN: Obese, soft, nontender to palpation. There are areas of ecchymosis on the abdomen. EXTREMITIES: There is no significant lower extremity edema noted bilaterally. LABORATORY DATA: WBC is 12.9, hemoglobin is 13.6, platelets are 332,000. Chemistries: Sodium is 138, potassium is 4.4, chloride is 101, BUN 27, creatinine is 0.35, glucose is 137. ASSESSMENT AND PLAN: Ms. Kumari is a 50-year-old female who presented initially with a small bowel obstruction and was also found to be COVID-19 positive. She had a very prolonged hospital stay secondary to COVID-19 pneumonia with ARDS and complicated by post COVID interstitial lung disease with severe hypoxemic respiratory failure. Patient also has been physically debilitated with critical illness myopathy and neuropathy as well as a steroid induced myopathy. Patient is being slowly weaned down on her FIO2 requirements while on BiPAP and Vapotherm. Would continue with BiPAP at night and during the day as needed but will attempt to increase the time while she is on Vapotherm. Would continue to encourage incentive spirometer use particularly when wearing her Vapotherm during the day. Will continue to encourage semi-prone position at nighttime. Will continue with Solumedrol but will taper down to 15 mg IV twice a day. She will need a very slow taper given her prolonged course of steroids. Continue Lovenox for full-dose anticoagulation. She may need additional anticoagulation at discharge as well given her severe hypoxemic respiratory failure and significant pro-thrombotic risk. Continue to encourage patient to work with PT/OT. She will need aggressive Physical Therapy upon discharge once she is able to be weaned down on her oxygen requirement. GI prophylaxis. PPI. DVT prophylaxis, on anticoagulation. Code status: Full code. Total critical care time spent not including procedures approximately 25 minutes. MTDD
[2020-10-19] MEDS: ACETAMINOPHEN TAB 650MG DOSE (2X325MG) PO PRN ×2 (11:57→21:38)
--- NOTE | 2020-10-19 13:51 | IPNPDOC ---
Subjective Date Seen The patient was seen on 10/19/20. Subjective Chief Complaint/HPI Resting in bed on vapotherm, no distress at rest Objective Physical Examination General Exam: Positive: Cooperative, No Acute Distress Eye Exam: Positive: PERRLA, EOMI ENT Exam: Positive: Mucous membr. moist/pink Chest Exam: Positive: Clear to auscultation Heart Exam: Positive: Rate Normal Telemetry: Positive: No significant arrhythmia Abdomen Exam: Positive: Normal bowel sounds, Soft; Negative: Tenderness, Hepatospenomegaly Extremity Exam: Positive: Swelling; Negative: Tenderness Assessment /Plan Assessment #. Acute hypoxemic respiratory failure 2/2 ARDS 2/2 COVID-19 -Acute COVID-19 has resolved. Patient has completed treatment with tocilizumab, remdesivir, and decadron. -Patients hypoxia is multifactorial. 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 She is on solumedrol. She has shown improvement with higher dose steroids. Will continue her on 20mg Solumedrol. This does place her at risk for opportunistic infection. She had been started on Bactrim for PCP prophylaxis however developed a morbilliform rash consistent with drug reaction. Her Bactrim has been stopped. Will hold off on Atovaquone or other anti-fungals as there is no current objective data to suggest a fungal infection. -Pulmonary medicine has been consulted and is following. -She is continued on full dose Lovenox for possible PE. She had not received a CTA initially given the severity of her hypoxia. She has shown improvement. She does still desaturate with movement although not as significantly. Could consider performing CTA as she may be able to tolerate. This would help guide the duration of her anticoagulation therapy. Although she likely has pulmonary hypertension given her severe hypoxia and therefore would benefit from anticoagulation regardless -Will defer duration of anticoagulation to Pulmonary medicine in regards to whether she will need life long -Patient appears euvolemic. She is net positive. Will monitor for volume overload -Physical therapy working with patient. She is severely debilitated from her critical illness and long hospitalization #. Morbilliform Rash -thought to be 2/2 bactrim, improved after DC. #. Sinus Tachycardia -Patient continues to be in sinus tachycardia. Likely secondary to hypoxia. Echocardiogram has resulted without any significant findings. Her tachycardia is resolving. Her HR is currently 100-110 improved from 130 -Continue Lopressor 25mg BID and Cardizem 60mg q6hr #. Transient Atrial fibrillation -Patient has remained in sinus. Was noted to have an episode of atrial fibrillation earlier in her hospitalization likely driven by hypoxia #. Hematuria -Has resolved. Patient is on full dose anticoagulation. Will continue to monitor #. JAQUELINE -Patient is currently on Bilevel #. Incarcerated Incisional Hernia -s/p surgical correction on 09/02/2020 -Healing well. No acute complications #. Physical Deconditioning/Debility -Patient has an extended hospital stay of over 1 month with critical illness. She is severely debilitated. She is working with physical therapy. 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 #. Constipation -Bowel regimen ordered #. GI prophylaxis -Protonix #. DVT prophylaxis -Lovenox DISPOSITION: Patient remains critically ill with severe hypoxia. She has made improvement although minimally. 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 hospitalization with skilled nursing rehabilitation Plan/VTE VTE Prophylaxis Ordered?: Yes VS, I&O, 24H, Fishbone Vital Signs/I&O Vital Signs Date Time Temp Pulse Resp B/P (MAP) Pulse Ox O2 Delivery O2 Flow Rate FiO2 10/19/20 11:57 106 132/82 10/19/20 11:09 HVNI-Vapotherm 35.0 80 10/19/20 08:00 98.6 28 91 I&O- Last 24 Hours up to 6 AM 10/19/20 06:00 Intake Total 1500 ml Output Total 675 ml Balance 825 ml Laboratory Data 24H LABS Laboratory Tests 2 10/19/20 05:30: Nucleated Red Blood Cells % (auto) 0.0, Anion Gap 6L, Glomerular Filtration Rate > 60.0, Calcium Level 9.3 CBC/BMP Laboratory Tests 10/19/20 05:30 Microbiology Microbiology 10/12/20 Gram Stain - Final, Complete 10/12/20 Sputum Culture - Final, Complete GLORIA MCKEON MD October 19, 2020 13:51
[2020-10-19] MEDS: SERTRALINE HCL 25 MG TABLET PO SCH (21:39)
[2020-10-20] VITALS: BP 119/65
[2020-10-20 04:00] VITALS: BP 125/66
[2020-10-20] MEDS: ALPRAZolam 0.5 MG TAB PO SCH ×3 (05:21→21:11)
[2020-10-20] MEDS: ACETAMINOPHEN TAB 650MG DOSE (2X325MG) PO PRN ×2 (05:22→21:11)
[2020-10-20] MEDS: SODIUM CHLORIDE 0.9% INJ 10 ML SYR IV SCH ×2 (05:23→18:14)
[2020-10-20 05:29] LABS: HEMATOCRIT 43.6 % (36.0-47.0); HEMOGLOBIN 14.1 g/dl (12.0-15.5); MEAN CORPUSCULAR HEMOGLOBIN 31.1 pg (27.0-33.0); MEAN CORPUSCULAR HGB CONC 32.3 g/dl (32.0-36.5); MEAN CORPUSCULAR VOLUME 96.2 fl (80.0-96.0); PLATELET COUNT, AUTOMATED 336 10^3/uL (150-450); RED BLOOD COUNT 4.53 10^6/uL (4.00-5.40); WHITE BLOOD COUNT 11.5 10^3/uL (4.0-10.0)
[2020-10-20 05:56] LABS: BLOOD UREA NITROGEN 25 MG/DL (7-18); CALCIUM LEVEL 9.3 MG/DL (8.5-10.1); CARBON DIOXIDE LEVEL 29 MEQ/L (21-32); CHLORIDE LEVEL 101 MEQ/L (98-107); CREATININE FOR GFR 0.34 MG/DL (0.55-1.30); GLOMERULAR FILTRATION RATE > 60.0 (>51); GLUCOSE, FASTING 152 MG/DL (70-100); POTASSIUM SERUM 4.4 MEQ/L (3.5-5.1); SODIUM LEVEL 137 MEQ/L (136-145)
[2020-10-20] MEDS: IPRATROPIUM 0.5MG/ALBUTEROL 2.5MG INH SOL UD 3ML (DUONEB) NEB SCH ×4 (07:11→19:29)
[2020-10-20] MEDS: DOCUSATE SODIUM 100MG CAPSULE PO SCH ×2 (08:10→21:00)
[2020-10-20 08:42] VITALS: BP 141/71
[2020-10-20] MEDS: PANTOPRAZOLE 40MG TAB (PROTONIX) PO SCH ×2 (08:56→21:11)
[2020-10-20] MEDS: METOPROLOL TART 25 MG TABLET PO SCH ×2 (08:56→21:12)
[2020-10-20] MEDS: guaiFENesin ER 600 MG TAB PO SCH ×2 (08:57→21:11)
[2020-10-20] MEDS: methylPREDNISolone 40MG 1ML VIAL IV SCH ×2 (08:57→21:10)
[2020-10-20] MEDS: ENOXAPARIN 100MG/1ML SYRINGE (J1650 PER 10MG) SC SCH ×2 (08:57→21:09)
[2020-10-20 12:19] VITALS: BP 116/67
[2020-10-20 16:04] VITALS: BP 121/72
--- NOTE | 2020-10-20 17:04 | IPNPDOC ---
Subjective Date Seen The patient was seen on 10/20/20. Subjective Chief Complaint/HPI Fio2 needs decreased overnight for bipap, on 70% vapotherm this am, no other complaints. sob at rest Objective Physical Examination General Exam: Positive: Cooperative, No Acute Distress Eye Exam: Positive: PERRLA, EOMI ENT Exam: Positive: Mucous membr. moist/pink Chest Exam: Positive: Clear to auscultation Heart Exam: Positive: Rate Normal Telemetry: Positive: No significant arrhythmia Abdomen Exam: Positive: Normal bowel sounds, Soft; Negative: Tenderness, Hepatospenomegaly Extremity Exam: Positive: Swelling; Negative: Tenderness Assessment /Plan Assessment #. Acute hypoxemic respiratory failure 2/2 ARDS 2/2 COVID-19 -Acute COVID-19 has resolved. Patient has completed treatment with tocilizum ab, remdesivir, and decadron. -Patients hypoxia is multifactorial. 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 She is on solumedrol. She has shown improvement with higher dose steroids. Will continue her on 20mg Solumedrol. This does place her at risk for opportunistic infection. She had been started on Bactrim for PCP prophylaxis however developed a morbilliform rash consistent with drug reaction. Her Bactrim has been stopped. Will hold off on Atovaquone or other anti-fungals as there is no current objective data to suggest a fungal infection. -Pulmonary medicine has been consulted and is following. -She is continued on full dose Lovenox for possible PE. She had not received a CTA initially given the severity of her hypoxia. She has shown improvement. She does still desaturate with movement although not as significantly. Could consider performing CTA as she may be able to tolerate. This would help guide the duration of her anticoagulation therapy. Although she likely has pulmonary hypertension given her severe hypoxia and therefore would benefit from anticoagulation regardless -Will defer duration of anticoagulation to Pulmonary medicine in regards to whether she will need life long -Patient appears euvolemic. She is net positive. Will monitor for volume overload -Physical therapy working with patient. She is severely debilitated from her critical illness and long hospitalization #. Morbilliform Rash -thought to be 2/2 bactrim, improved after DC. #. Sinus Tachycardia -Patient continues to be in sinus tachycardia. Likely secondary to hypoxia. Echocardiogram has resulted without any significant findings. Her tachycardia is resolving. Her HR is currently 100-110 improved from 130 -Continue Lopressor 25mg BID and Cardizem 60mg q6hr #. Transient Atrial fibrillation -Patient has remained in sinus. Was noted to have an episode of atrial fibrillation earlier in her hospitalization likely driven by hypoxia #. Hematuria -Has resolved. Patient is on full dose anticoagulation. Will continue to monitor #. JAQUELINE -Patient is currently on Bilevel #. Incarcerated Incisional Hernia -s/p surgical correction on 09/02/2020 -Healing well. No acute complications #. Physical Deconditioning/Debility -Patient has an extended hospital stay of over 1 month with critical illness. She is severely debilitated. She is working with physical therapy. She will need alf rehab pending clinical improvement. #. Constipation -Bowel regimen ordered #. GI prophylaxis -Protonix #. DVT prophylaxis -Lovenox DISPOSITION: Patient remains critically ill with severe hypoxia. She has made improvement although minimally. 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 Plan/VTE VTE Prophylaxis Ordered?: Yes VS, I&O, 24H, Fishbone Vital Signs/I&O Vital Signs Date Time Temp Pulse Resp B/P (MAP) Pulse Ox O2 Delivery O2 Flow Rate FiO2 10/20/20 15:39 89 10/20/20 13:17 116/67 10/20/20 13:00 92 HVNI-Vapotherm 26.0 55 10/20/20 12:19 96.1 30 I&O- Last 24 Hours up to 6 AM 10/20/20 06:00 Intake Total 1740 ml Output Total 825 ml Balance 915 ml Laboratory Data 24H LABS Laboratory Tests 2 10/20/20 05:06: Nucleated Red Blood Cells % (auto) 0.0, Anion Gap 7L, Glomerular Filtration Rate > 60.0, Calcium Level 9.3 CBC/BMP Laboratory Tests 10/20/20 05:06 Microbiology Microbiology 10/12/20 Gram Stain - Final, Complete 10/12/20 Sputum Culture - Final, Complete GLORIA MCKEON MD October 20, 2020 17:04
[2020-10-20] MEDS: SODIUM CHLORIDE 0.9% INJ 10 ML SYR IV PRN (18:15)
[2020-10-20 20:00] VITALS: BP 120/66
[2020-10-20] MEDS: SERTRALINE HCL 25 MG TABLET PO SCH (21:13)
[2020-10-21] VITALS (7 sets, daily range): BP systolic 93–132; BP diastolic 57–77
[2020-10-21] MEDS: ALPRAZolam 0.5 MG TAB PO SCH ×3 (05:46→21:51)
[2020-10-21] MEDS: SODIUM CHLORIDE 0.9% INJ 10 ML SYR IV SCH ×2 (05:46→17:45)
[2020-10-21 06:14] LABS: HEMATOCRIT 42.6 % (36.0-47.0); HEMOGLOBIN 13.8 g/dl (12.0-15.5); MEAN CORPUSCULAR HEMOGLOBIN 31.2 pg (27.0-33.0); MEAN CORPUSCULAR HGB CONC 32.4 g/dl (32.0-36.5); MEAN CORPUSCULAR VOLUME 96.4 fl (80.0-96.0); PLATELET COUNT, AUTOMATED 305 10^3/uL (150-450); RED BLOOD COUNT 4.42 10^6/uL (4.00-5.40)
[2020-10-21 06:42] LABS: BLOOD UREA NITROGEN 28 MG/DL (7-18); CALCIUM LEVEL 8.9 MG/DL (8.5-10.1); CARBON DIOXIDE LEVEL 30 MEQ/L (21-32); CHLORIDE LEVEL 102 MEQ/L (98-107); CREATININE FOR GFR 0.29 MG/DL (0.55-1.30); GLOMERULAR FILTRATION RATE > 60.0 (>51); GLUCOSE, FASTING 136 MG/DL (70-100); POTASSIUM SERUM 4.1 MEQ/L (3.5-5.1); SODIUM LEVEL 137 MEQ/L (136-145)
[2020-10-21] MEDS: IPRATROPIUM 0.5MG/ALBUTEROL 2.5MG INH SOL UD 3ML (DUONEB) NEB SCH ×4 (07:18→20:10)
[2020-10-21] MEDS: ENOXAPARIN 100MG/1ML SYRINGE (J1650 PER 10MG) SC SCH ×2 (10:23→21:51)
[2020-10-21] MEDS: methylPREDNISolone 40MG 1ML VIAL IV SCH ×2 (10:24→21:54)
[2020-10-21] MEDS: DOCUSATE SODIUM 100MG CAPSULE PO SCH ×2 (10:24→21:52)
[2020-10-21] MEDS: METOPROLOL TART 25 MG TABLET PO SCH ×2 (10:24→21:52)
[2020-10-21] MEDS: PANTOPRAZOLE 40MG TAB (PROTONIX) PO SCH ×2 (10:24→21:52)
[2020-10-21] MEDS: guaiFENesin ER 600 MG TAB PO SCH ×2 (10:24→21:52)
--- NOTE | 2020-10-21 11:15 | IPNPDOC ---
Subjective Date Seen The patient was seen on 10/21/20. Subjective Chief Complaint/HPI Tolerated table-top bipap, vapotherm down to fiO2 60% sitting in chair Objective Physical Examination General Exam: Positive: Cooperative, No Acute Distress Eye Exam: Positive: PERRLA, EOMI ENT Exam: Positive: Mucous membr. moist/pink Chest Exam: Positive: Clear to auscultation Heart Exam: Positive: Rate Normal Telemetry: Positive: No significant arrhythmia Abdomen Exam: Positive: Normal bowel sounds, Soft; Negative: Tenderness, Hepatospenomegaly Extremity Exam: Positive: Swelling; Negative: Tenderness Assessment /Plan Assessment #. Acute hypoxemic respiratory failure 2/2 ARDS 2/2 COVID-19 -Acute COVID-19 has resolved. Patient has completed treatment with tocilizumab, remdesivir, and decadron. -Patients hypoxia is multifactorial. 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 She is on solumedrol. She has shown improvement with higher dose steroids. Will wean steroids. She had been started on Bactrim for PCP prophylaxis however developed a morbilliform rash consistent with drug reaction. Her Bactrim has been stopped. Will hold off on Atovaquone or other anti-fungals as there is no current objective data to suggest a fungal infection. -Pulmonary medicine has been consulted and is following intermittently. -She is continued on full dose Lovenox for possible PE. She had not received a CTA initially given the severity of her hypoxia. She has shown improvement. She does still desaturate with movement although not as significantly. Could consider performing CTA as she may be able to tolerate. This would help guide the duration of her anticoagulation therapy. Although she likely has pulmonary hypertension given her severe hypoxia and therefore would benefit from anticoagu lation regardless -Will defer duration of anticoagulation to Pulmonary medicine in regards to whether she will need life long -Patient appears euvolemic. She is net positive. Will monitor for volume overload -Physical therapy working with patient. She is severely debilitated from her critical illness and long hospitalization #. Morbilliform Rash -thought to be 2/2 bactrim, improved after DC. #. Sinus Tachycardia -Patient continues to be in sinus tachycardia. Likely secondary to hypoxia. Echocardiogram has resulted without any significant findings. Her tachycardia is resolving. Her HR is currently 100-110 improved from 130 -Continue Lopressor 25mg BID and Cardizem 60mg q6hr #. Transient Atrial fibrillation -Patient has remained in sinus. Was noted to have an episode of atrial fibrillation earlier in her hospitalization likely driven by hypoxia #. Hematuria -Has resolved. Patient is on full dose anticoagulation. Will continue to monitor #. JAQUELINE -Patient is currently on Bilevel #. Incarcerated Incisional Hernia -s/p surgical correction on 09/02/2020 -Healing well. No acute complications #. Physical Deconditioning/Debility -Patient has an extended hospital stay of over 1 month with critical illness. She is severely debilitated. She is working with physical therapy. 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 #. Constipation -Bowel regimen ordered #. GI prophylaxis -Protonix #. DVT prophylaxis -Lovenox DISPOSITION: transfer to PCU Plan/VTE VTE Prophylaxis Ordered?: Yes VS, I&O, 24H, Fishbone Vital Signs/I&O Vital Signs Date Time Temp Pulse Resp B/P (MAP) Pulse Ox O2 Delivery O2 Flow Rate FiO2 10/21/20 10:24 123 128/77 10/21/20 09:23 91 HVNI-Vapotherm 25.0 70 10/21/20 08:13 97.6 30 I&O- Last 24 Hours up to 6 AM 10/21/20 06:00 Intake Total 1320 ml Output Total 600 ml Balance 720 ml Laboratory Data 24H LABS Laboratory Tests 2 10/21/20 05:45: Nucleated Red Blood Cells % (auto) 0.0, Anion Gap 5L, Glomerular Filtration Rate > 60.0, Calcium Level 8.9 CBC/BMP Laboratory Tests 10/21/20 05:45 Microbiology Microbiology 10/12/20 Gram Stain - Final, Complete 10/12/20 Sputum Culture - Final, Complete GLORIA MCKEON MD October 21, 2020 11:15
[2020-10-21] MEDS: ACETAMINOPHEN TAB 650MG DOSE (2X325MG) PO PRN (21:52)
[2020-10-21] MEDS: SERTRALINE HCL 25 MG TABLET PO SCH (21:52)
[2020-10-22] VITALS (13 sets, daily range): BP systolic 109–136; BP diastolic 67–88; O2SAT 90–94
[2020-10-22 05:50] LABS: HEMATOCRIT 40.4 % (36.0-47.0); HEMOGLOBIN 12.9 g/dl (12.0-15.5); MEAN CORPUSCULAR HEMOGLOBIN 30.9 pg (27.0-33.0); MEAN CORPUSCULAR HGB CONC 31.9 g/dl (32.0-36.5); MEAN CORPUSCULAR VOLUME 96.9 fl (80.0-96.0); PLATELET COUNT, AUTOMATED 262 10^3/uL (150-450); RED BLOOD COUNT 4.17 10^6/uL (4.00-5.40); WHITE BLOOD COUNT 10.4 10^3/uL (4.0-10.0)
[2020-10-22] MEDS: ALPRAZolam 0.5 MG TAB PO SCH ×3 (06:04→21:50)
[2020-10-22] MEDS: SODIUM CHLORIDE 0.9% INJ 10 ML SYR IV SCH ×2 (06:05→18:28)
[2020-10-22 06:55] LABS: BLOOD UREA NITROGEN 26 MG/DL (7-18); CALCIUM LEVEL 8.6 MG/DL (8.5-10.1); CARBON DIOXIDE LEVEL 31 MEQ/L (21-32); CHLORIDE LEVEL 104 MEQ/L (98-107); CREATININE FOR GFR 0.33 MG/DL (0.55-1.30); GLOMERULAR FILTRATION RATE > 60.0 (>51); GLUCOSE, FASTING 142 MG/DL (70-100); POTASSIUM SERUM 4.3 MEQ/L (3.5-5.1); SODIUM LEVEL 139 MEQ/L (136-145)
[2020-10-22] MEDS: IPRATROPIUM 0.5MG/ALBUTEROL 2.5MG INH SOL UD 3ML (DUONEB) NEB SCH ×4 (07:12→20:57)
[2020-10-22] MEDS: DOCUSATE SODIUM 100MG CAPSULE PO SCH ×2 (08:52→21:50)
[2020-10-22] MEDS: PANTOPRAZOLE 40MG TAB (PROTONIX) PO SCH ×2 (08:52→21:50)
[2020-10-22] MEDS: guaiFENesin ER 600 MG TAB PO SCH ×2 (08:53→21:49)
[2020-10-22] MEDS: METOPROLOL TART 25 MG TABLET PO SCH ×2 (08:53→21:50)
[2020-10-22] MEDS: methylPREDNISolone 40MG 1ML VIAL IV SCH ×2 (08:53→21:49)
[2020-10-22] MEDS: ENOXAPARIN 100MG/1ML SYRINGE (J1650 PER 10MG) SC SCH ×2 (08:53→21:49)
--- NOTE | 2020-10-22 13:35 | IPNPDOC ---
Subjective Date Seen The patient was seen on 10/22/20. Subjective Chief Complaint/HPI Diana Carlson has remained stable since being transferred to the stepdown unit. She is presently on Vapotherm at 25 L with an FiO2 of 70% she is satting approximately 95%. She continues to tolerate the tabletop BiPAP. Objective Physical Examination General Exam: Positive: No Acute Distress Eye Exam: Positive: Conjunctiva & lids normal ENT Exam: Positive: Mucous membr. moist/pink Chest Exam: Positive: Clear to auscultation Heart Exam: Positive: Rate Normal Telemetry: Positive: No significant arrhythmia Abdomen Exam: Positive: Normal bowel sounds, Soft; Negative: Tenderness, Hepatospenomegaly Extremity Exam: Positive: Swelling; Negative: Tenderness Assessment /Plan Assessment #. Acute hypoxemic respiratory failure 2/2 ARDS 2/2 COVID-19 -Acute COVID-19 has resolved. Patient has completed treatment with tocilizumab, remdesivir, and decadron. -Patients hypoxia is multifactorial. 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 She is on solumedrol. She has shown improvement with higher dose steroids. Will wean steroids. She had been started on Bactrim for PCP prophylaxis however developed a morbilliform rash consistent with drug reaction. Her Bactrim has been stopped. Will hold off on Atovaquone or other anti-fungals as there is no current objective data to suggest a fungal infection. -Pulmonary medicine has been consulted and is following intermittently. -She is continued on full dose Lovenox for possible PE. She had not received a CTA initially given the severity of her hypoxia. She has shown improvement. She does still desaturate with movement although not as significantly. Could consider performing CTA as she may be able to tolerate. This would help guide the duration of her anticoagulation therapy. Although she likely has pulmonary hypertension given her severe hypoxia and therefore would benefit from anticoagulation regardless -Will defer duration of anticoagulation to Pulmonary medicine in regards to whether she will need life long -Patient appears euvolemic. She is net positive. Will monitor for volume overload -Physical therapy working with patient. She is severely debilitated from her critical illness and long hospitalization #. Morbilliform Rash -thought to be 2/2 bactrim, improved after DC. #. Sinus Tachycardia -Patient continues to be in sinus tachycardia. Likely secondary to hypoxia. Echocardiogram has resulted without any significant findings. Her tachycardia is resolving. Her HR is currently 100-110 improved from 130 -Continue Lopressor 25mg BID and Cardizem 60mg q6hr #. Transient Atrial fibrillation -Patient has remained in sinus. Was noted to have an episode of atrial fibrillation earlier in her hospitalization likely driven by hypoxia #. Hematuria -Has resolved. Patient is on full dose anticoagulation. Will continue to monitor #. JAQUELINE -Patient is currently on Bilevel #. Incarcerated Incisional Hernia -s/p surgical correction on 09/02/2020 -Healing well. No acute complications #. Physical Deconditioning/Debility -Patient has an extended hospital stay of over 1 month with critical illness. She is severely debilitated. She is working with physical therapy. She will need intermediate frame tender rehab pending clinical improvement. #. Constipation -Bowel regimen ordered #. GI prophylaxis -Protonix #. DVT prophylaxis -Lovenox DISPOSITION: transfer to PCU Plan/VTE VTE Prophylaxis Ordered?: Yes VS, I&O, 24H, Fishbone Vital Signs/I&O Vital Signs Date Time Temp Pulse Resp B/P (MAP) Pulse Ox O2 Delivery O2 Flow Rate FiO2 10/22/20 13:30 104 124/77 10/22/20 12:16 91 HVNI-Vapotherm 25.0 70 10/22/20 11:03 97.7 20 I&O- Last 24 Hours up to 6 AM 10/22/20 06:00 Intake Total 1180 ml Output Total 675 ml Balance 505 ml Laboratory Data 24H LABS Laboratory Tests 2 10/22/20 05:30: Nucleated Red Blood Cells % (auto) 0.3H, Anion Gap 4L, Glomerular Filtration Rate > 60.0, Calcium Level 8.6 CBC/BMP Laboratory Tests 10/22/20 05:30 Microbiology Microbiology 10/12/20 Gram Stain - Final, Complete 10/12/20 Sputum Culture - Final, Complete GLORIA MCKEON MD October 22, 2020 13:35
[2020-10-22] MEDS: ACETAMINOPHEN TAB 650MG DOSE (2X325MG) PO PRN (21:49)
[2020-10-22] MEDS: SERTRALINE HCL 25 MG TABLET PO SCH (21:50)
[2020-10-22] MEDS: SODIUM CHLORIDE 0.9% INJ 10 ML SYR IV PRN (21:57)
[2020-10-23] VITALS (16 sets, daily range): BP systolic 115–139; BP diastolic 72–81; O2SAT 92–97
[2020-10-23] MEDS: ALPRAZolam 0.5 MG TAB PO SCH ×3 (06:20→22:27)
[2020-10-23] MEDS: SODIUM CHLORIDE 0.9% INJ 10 ML SYR IV SCH ×2 (06:21→18:27)
[2020-10-23 06:42] LABS: HEMATOCRIT 41.4 % (36.0-47.0); HEMOGLOBIN 13.3 g/dl (12.0-15.5); MEAN CORPUSCULAR HEMOGLOBIN 31.1 pg (27.0-33.0); MEAN CORPUSCULAR HGB CONC 32.1 g/dl (32.0-36.5); PLATELET COUNT, AUTOMATED 263 10^3/uL (150-450); RED BLOOD COUNT 4.27 10^6/uL (4.00-5.40); WHITE BLOOD COUNT 10.5 10^3/uL (4.0-10.0)
[2020-10-23 06:58] LABS: BLOOD UREA NITROGEN 27 MG/DL (7-18); CARBON DIOXIDE LEVEL 29 MEQ/L (21-32); CHLORIDE LEVEL 104 MEQ/L (98-107); GLOMERULAR FILTRATION RATE > 60.0 (>51); GLUCOSE, FASTING 149 MG/DL (70-100); POTASSIUM SERUM 4.2 MEQ/L (3.5-5.1); SODIUM LEVEL 138 MEQ/L (136-145)
[2020-10-23] MEDS: IPRATROPIUM 0.5MG/ALBUTEROL 2.5MG INH SOL UD 3ML (DUONEB) NEB SCH ×4 (07:51→20:02)
[2020-10-23] MEDS: DOCUSATE SODIUM 100MG CAPSULE PO SCH ×2 (09:16→20:19)
[2020-10-23] MEDS: METOPROLOL TART 25 MG TABLET PO SCH ×2 (09:16→20:21)
[2020-10-23] MEDS: PANTOPRAZOLE 40MG TAB (PROTONIX) PO SCH ×2 (09:16→20:19)
[2020-10-23] MEDS: guaiFENesin ER 600 MG TAB PO SCH ×2 (09:16→20:19)
[2020-10-23] MEDS: methylPREDNISolone 40MG 1ML VIAL IV SCH ×2 (09:17→20:18)
[2020-10-23] MEDS: ENOXAPARIN 100MG/1ML SYRINGE (J1650 PER 10MG) SC SCH ×2 (09:17→20:18)
--- NOTE | 2020-10-23 12:18 | IPNPDOC ---
Subjective Date Seen The patient was seen on 10/23/20. Subjective Chief Complaint/HPI Diana oxygen requirements improved slightly this morning she was on 25 L with FiO2 of 50% on Vapotherm which is an improvement from yesterday. However patient needed to be placed on a bedpan and she was laid in the supine position did desat required brief increase in her oxygen requirements versus otherwise stable. Objective Physical Examination General Exam: Positive: No Acute Distress Eye Exam: Positive: Conjunctiva & lids normal ENT Exam: Positive: Mucous membr. moist/pink, Other ENT (no thrush) Chest Exam: Positive: Clear to auscultation Heart Exam: Positive: Rate Normal Telemetry: Positive: No significant arrhythmia Abdomen Exam: Positive: Normal bowel sounds, Soft; Negative: Tenderness, Hepatospenomegaly Extremity Exam: Positive: Other (left upper extremity soft tissue hematoma is unchanged in size.); Negative: Tenderness Assessment /Plan Assessment #. Acute hypoxemic respiratory failure 2/2 ARDS 2/2 COVID-19 -Acute COVID-19 has resolved. Patient has completed treatment with tocili zumab, remdesivir, and decadron. -Patients hypoxia is multifactorial. 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 She is on solumedrol. She has shown improvement with higher dose steroids. Will wean steroids. She had been started on Bactrim for PCP prophylaxis however developed a morbilliform rash consistent with drug reaction. Her Bactrim has been stopped. Will hold off on Atovaquone or other anti-fungals as there is no current objective data to suggest a fungal infection. -Pulmonary medicine has been consulted and is following intermittently. -She is continued on full dose Lovenox for possible PE. She had not received a CTA initially given the severity of her hypoxia. She has shown improvement. She does still desaturate with movement although not as significantly. Could consider performing CTA as she may be able to tolerate. This would help guide the duration of her anticoagulation therapy. Although she likely has pulmonary hypertension given her severe hypoxia and therefore would benefit from anticoagulation regardless -Will defer duration of anticoagulation to Pulmonary medicine in regards to whether she will need life long -Patient appears euvolemic. She is net positive. Will monitor for volume overload -Physical therapy working with patient. She is severely debilitated from her critical illness and long hospitalization #. Morbilliform Rash -thought to be 2/2 bactrim, improved after DC. #. Sinus Tachycardia -Patient continues to be in sinus tachycardia. Likely secondary to hypoxia. Echocardiogram has resulted without any significant findings. Her tachycardia is resolving. Her HR is currently 100-110 improved from 130 -Continue Lopressor 25mg BID and Cardizem 60mg q6hr #. Transient Atrial fibrillation -Patient has remained in sinus. Was noted to have an episode of atrial fibrillation earlier in her hospitalization likely driven by hypoxia #. Hematuria -Has resolved. Patient is on full dose anticoagulation. Will continue to monitor #. JAQUELINE -Patient is currently on Bilevel #. Incarcerated Incisional Hernia -s/p surgical correction on 09/02/2020 -Healing well. No acute complications #. Physical Deconditioning/Debility -Patient has an extended hospital stay of over 1 month with critical illness. She is severely debilitated. She is working with physical therapy. She will need alf rehab pending clinical improvement. #. Constipation -Bowel regimen ordered #. GI prophylaxis -Protonix #. DVT prophylaxis -Lovenox DISPOSITION: transfer to PCU Plan/VTE VTE Prophylaxis Ordered?: Yes VS, I&O, 24H, [facility] Vital Signs/I&O Vital Signs Date Time Temp Pulse Resp B/P (MAP) Pulse Ox O2 Delivery O2 Flow Rate FiO2 10/23/20 12:07 88 136/82 10/23/20 08:00 96.9 18 93 HVNI-Vapotherm 30.0 75 I&O- Last 24 Hours up to 6 AM 10/23/20 06:00 Intake Total 960 ml Balance 960 ml Laboratory Data 24H LABS Laboratory Tests 2 10/23/20 06:25: Nucleated Red Blood Cells % (auto) 0.2H, Anion Gap 5L, Glomerular Filtration Rate > 60.0, Calcium Level 9.0 CBC/BMP Laboratory Tests 10/23/20 06:25 GLORIA MCKEON MD October 23, 2020 12:18
[2020-10-23] MEDS: SERTRALINE HCL 25 MG TABLET PO SCH (20:19)
[2020-10-23] MEDS: ACETAMINOPHEN TAB 650MG DOSE (2X325MG) PO PRN (22:27)
[2020-10-24] VITALS (11 sets, daily range): BP systolic 107–148; BP diastolic 62–95; O2SAT 90–99
[2020-10-24] MEDS: ALPRAZolam 0.5 MG TAB PO SCH ×3 (06:05→22:00)
[2020-10-24] MEDS: SODIUM CHLORIDE 0.9% INJ 10 ML SYR IV SCH ×2 (06:07→17:34)
[2020-10-24 06:38] LABS: HEMATOCRIT 40.7 % (36.0-47.0); HEMOGLOBIN 13.1 g/dl (12.0-15.5); MEAN CORPUSCULAR HGB CONC 32.2 g/dl (32.0-36.5); MEAN CORPUSCULAR VOLUME 96.2 fl (80.0-96.0); PLATELET COUNT, AUTOMATED 246 10^3/uL (150-450); RED BLOOD COUNT 4.23 10^6/uL (4.00-5.40); WHITE BLOOD COUNT 9.8 10^3/uL (4.0-10.0)
[2020-10-24 07:06] LABS: BLOOD UREA NITROGEN 21 MG/DL (7-18); CARBON DIOXIDE LEVEL 28 MEQ/L (21-32); CHLORIDE LEVEL 104 MEQ/L (98-107); CREATININE FOR GFR 0.36 MG/DL (0.55-1.30); GLOMERULAR FILTRATION RATE > 60.0 (>51); GLUCOSE, FASTING 142 MG/DL (70-100); POTASSIUM SERUM 3.9 MEQ/L (3.5-5.1); SODIUM LEVEL 139 MEQ/L (136-145)
[2020-10-24] MEDS: IPRATROPIUM 0.5MG/ALBUTEROL 2.5MG INH SOL UD 3ML (DUONEB) NEB SCH ×4 (08:40→20:14)
[2020-10-24] MEDS: guaiFENesin ER 600 MG TAB PO SCH ×2 (08:59→21:41)
[2020-10-24] MEDS: PANTOPRAZOLE 40MG TAB (PROTONIX) PO SCH ×2 (08:59→21:41)
[2020-10-24] MEDS: METOPROLOL TART 25 MG TABLET PO SCH ×2 (08:59→21:00)
[2020-10-24] MEDS: DOCUSATE SODIUM 100MG CAPSULE PO SCH ×2 (08:59→21:00)
[2020-10-24] MEDS: ENOXAPARIN 100MG/1ML SYRINGE (J1650 PER 10MG) SC SCH ×2 (08:59→21:42)
[2020-10-24] MEDS: methylPREDNISolone 40MG 1ML VIAL IV SCH ×2 (09:00→21:42)
--- NOTE | 2020-10-24 09:35 | IPNPDOC ---
Subjective Date Seen The patient was seen on 10/24/20. Subjective Chief Complaint/HPI Norma continues to desat with minimal movement in bed. She is currently on 30 L high flow nasal cannula at 60% FiO2. She denies any other complaints. Objective Physical Examination General Exam: Positive: No Acute Distress Eye Exam: Positive: Conjunctiva & lids normal ENT Exam: Positive: Mucous membr. moist/pink Chest Exam: Positive: Clear to auscultation Heart Exam: Positive: Rate Normal Telemetry: Positive: No significant arrhythmia Abdomen Exam: Positive: Normal bowel sounds, Soft; Negative: Tenderness, Hepatospenomegaly Extremity Exam: Positive: Other (left upper extremity soft tissue hematoma is unchanged in size.); Negative: Tenderness Assessment /Plan Assessment #. Acute hypoxemic respiratory failure 2/2 ARDS 2/2 COVID-19 -Acute COVID-19 has resolved. Patient has completed treatment with tocilizumab, remdesivir, and decadron. -Patients hypoxia is multifactorial. 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 She is on solumedrol 15 mg IV q12 -Pulmonary medicine has been consulted and is following intermittently. -She is continued on full dose Lovenox for possible PE. She had not received a CTA initially given the severity of her hypoxia. She has shown improvement. She does still desaturate with movement although not as significantly. Could consider performing CTA as she may be able to tolerate. This would help guide the duration of her anticoagulation therapy. Although she likely has pulmonary hypertension given her severe hypoxia and therefore would benefit from antico agulation regardless -Will defer duration of anticoagulation to Pulmonary medicine in regards to whether she will need life long #. Morbilliform Rash -thought to be 2/2 bactrim, improved after DC. #. Sinus Tachycardia -Patient continues to be in sinus tachycardia. Likely secondary to hypoxia. Echocardiogram has resulted without any significant findings. Her tachycardia is resolving. Her HR is currently 100-110 improved from 130 -Continue Lopressor 25mg BID and Cardizem 60mg q6hr #. Transient Atrial fibrillation -Patient has remained in sinus. Was noted to have an episode of atrial fibrillation earlier in her hospitalization likely driven by hypoxia #. Hematuria -Has resolved. Patient is on full dose anticoagulation. Will continue to monitor #. JAQUELINE -Patient is currently on Bilevel #. Incarcerated Incisional Hernia -s/p surgical correction on 09/02/2020 -Healing well. No acute complications #. Physical Deconditioning/Debility -Patient has an extended hospital stay of over 1 month with critical illness. She is severely debilitated. She is working with physical therapy. 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 #. Constipation -Bowel regimen ordered #. GI prophylaxis -Protonix #. DVT prophylaxis -Lovenox DISPOSITION: needs ongoing hospitalization Plan/VTE VTE Prophylaxis Ordered?: Yes VS, I&O, 24H, Fishbone Vital Signs/I&O Vital Signs Date Time Temp Pulse Resp B/P (MAP) Pulse Ox O2 Delivery O2 Flow Rate FiO2 10/24/20 08:59 131 148/95 10/24/20 08:00 96.7 30 90 HVNI-Vapotherm 30.0 70 I&O- Last 24 Hours up to 6 AM 10/24/20 06:00 Intake Total 2100 ml Output Total 700 ml Balance 1400 ml Laboratory Data 24H LABS Laboratory Tests 2 10/24/20 06:18: Nucleated Red Blood Cells % (auto) 0.2H, Anion Gap 7L, Glomerular Filtration Rate > 60.0, Calcium Level 9.0, C-Reactive Protein, Quantitative 0.30 CBC/BMP Laboratory Tests 10/24/20 06:18 GLORIA MCKEON MD October 24, 2020 09:35
[2020-10-24] MEDS: ACETAMINOPHEN TAB 650MG DOSE (2X325MG) PO PRN (18:10)
[2020-10-24] MEDS: SERTRALINE HCL 25 MG TABLET PO SCH (21:42)
[2020-10-25] VITALS (19 sets, daily range): BP systolic 100–140; BP diastolic 59–83; O2SAT 87–98
[2020-10-25] MEDS: ACETAMINOPHEN TAB 650MG DOSE (2X325MG) PO PRN ×3 (00:55→22:44)
[2020-10-25] MEDS: ALPRAZolam 0.5 MG TAB PO SCH ×3 (06:00→22:44)
[2020-10-25] MEDS: SODIUM CHLORIDE 0.9% INJ 10 ML SYR IV SCH ×2 (06:42→18:24)
[2020-10-25] MEDS: IPRATROPIUM 0.5MG/ALBUTEROL 2.5MG INH SOL UD 3ML (DUONEB) NEB SCH ×4 (07:23→20:06)
[2020-10-25] MEDS: methylPREDNISolone 40MG 1ML VIAL IV SCH ×2 (09:18→22:44)
[2020-10-25] MEDS: ENOXAPARIN 100MG/1ML SYRINGE (J1650 PER 10MG) SC SCH ×2 (09:19→22:44)
[2020-10-25] MEDS: guaiFENesin ER 600 MG TAB PO SCH ×2 (09:19→22:45)
[2020-10-25] MEDS: PANTOPRAZOLE 40MG TAB (PROTONIX) PO SCH ×2 (09:19→22:44)
[2020-10-25] MEDS: METOPROLOL TART 25 MG TABLET PO SCH ×2 (09:19→22:47)
[2020-10-25] MEDS: DOCUSATE SODIUM 100MG CAPSULE PO SCH ×2 (09:20→22:45)
--- NOTE | 2020-10-25 10:33 | IPNPDOC ---
Subjective Date Seen The patient was seen on 10/25/20. Subjective Chief Complaint/HPI Aravind holman this morning she is currently on 20 L with an FiO2 80%. Vapotherm. Only issue she is having is she did not use or table top BiPAP accumulating a lot of water they're going to switch out of the unit for her today. Objective Physical Examination General Exam: Positive: Other (dyspneic at rest just with talking) Eye Exam: Positive: Conjunctiva & lids normal ENT Exam: Positive: Mucous membr. moist/pink, Other ENT (no thrush) Chest Exam: Positive: Clear to auscultation Heart Exam: Positive: Rate Normal Telemetry: Positive: No significant arrhythmia Abdomen Exam: Positive: Normal bowel sounds, Soft; Negative: Tenderness, Hepatospenomegaly Extremity Exam: Positive: Other (left upper extremity soft tissue hematoma is unchanged in size.); Negative: Tenderness Psych Exam: Positive: Mental status NL Assessment /Plan Assessment #. Acute hypoxemic respiratory failure 2/2 ARDS 2/2 COVID-19 -Acute COVID-19 has resolved. Patient has completed treatment with tocilizumab, remdesivir, and decadron. -Patients hypoxia is multifactorial. 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 She is on solumedrol 15 mg IV q12 -Pulmonary medicine has been consulted and is following intermittently. -She is continued on full dose Lovenox for possible PE. She had not received a CTA initially given the severity of her hypoxia. She has shown improvement. She does still desaturate with movement although not as significantly. Could consider performing CTA as she may be able to tolerate. This would help guide the duration of her anticoagulation therapy. Although she likely has pulmonary hypertension given her severe hypoxia and therefore would benefit from anticoagulation regardless -Will defer duration of anticoagulation to Pulmonary medicine in regards to whether she will need life long #. Morbilliform Rash -thought to be 2/2 bactrim, improved after DC. #. Sinus Tachycardia -Patient continues to be in sinus tachycardia. Likely secondary to hypoxia. Echocardiogram has resulted without any significant findings. Her tachycardia is resolving. Her HR is currently 100-110 improved from 130 -Continue Lopressor 25mg BID and Cardizem 60mg q6hr #. Transient Atrial fibrillation -Patient has remained in sinus. Was noted to have an episode of atrial fibrillation earlier in her hospitalization likely driven by hypoxia #. Hematuria -Has resolved. Patient is on full dose anticoagulation. Will continue to monitor #. JAQUELINE -Patient is currently on Bilevel #. Incarcerated Incisional Hernia -s/p surgical correction on 09/02/2020 -Healing well. No acute complications #. Physical Deconditioning/Debility -Patient has an extended hospital stay of over 1 month with critical illness. She is severely debilitated. She is working with physical therapy. 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 #. Constipation -Bowel regimen ordered #. GI prophylaxis -Protonix #. DVT prophylaxis -Lovenox DISPOSITION: needs ongoing hospitalization Plan/VTE VTE Prophylaxis Ordered?: Yes VS, I&O, 24H, Fishbone Vital Signs/I&O Vital Signs Date Time Temp Pulse Resp B/P (MAP) Pulse Ox O2 Delivery O2 Flow Rate FiO2 10/25/20 09:19 124 140/83 10/25/20 08:00 97.7 22 93 HVNI-Vapotherm 20.0 80 I&O- Last 24 Hours up to 6 AM 10/25/20 06:00 Intake Total 2160 ml Output Total 1550 ml Balance 610 ml GLORIA MCKEON MD October 25, 2020 10:33
[2020-10-25] MEDS: SERTRALINE HCL 25 MG TABLET PO SCH (22:45)
[2020-10-26] VITALS (18 sets, daily range): BP systolic 111–140; BP diastolic 59–84; O2SAT 93–97
[2020-10-26] MEDS: ALPRAZolam 0.5 MG TAB PO SCH ×3 (05:30→21:36)
[2020-10-26] MEDS: SODIUM CHLORIDE 0.9% INJ 10 ML SYR IV SCH ×2 (05:30→18:35)
[2020-10-26 05:53] LABS: BASO % 0.3 % (0.0-1.0); HEMATOCRIT 40.6 % (36.0-47.0); HEMOGLOBIN 13.1 g/dl (12.0-15.5); LYMPH # 0.8 10^3/uL (1.5-5.0); LYMPH % 7.2 % (24.0-44.0); MEAN CORPUSCULAR HEMOGLOBIN 31.4 pg (27.0-33.0); MEAN CORPUSCULAR HGB CONC 32.3 g/dl (32.0-36.5); MEAN CORPUSCULAR VOLUME 97.4 fl (80.0-96.0); MONO # 0.4 10^3/uL (0.0-0.8); MONO % 3.3 % (2.0-8.0); NEUTROPHILS % 87.1 % (36.0-66.0); PLATELET COUNT, AUTOMATED 230 10^3/uL (150-450); RED BLOOD COUNT 4.17 10^6/uL (4.00-5.40); WHITE BLOOD COUNT 11.4 10^3/uL (4.0-10.0)
[2020-10-26 06:26] LABS: ALBUMIN 2.8 GM/DL (3.2-5.2); ALT/SGPT 72 U/L (12-78); BILIRUBIN,TOTAL 0.4 MG/DL (0.2-1.0); BLOOD UREA NITROGEN 21 MG/DL (7-18); CALCIUM LEVEL 9.2 MG/DL (8.5-10.1); CARBON DIOXIDE LEVEL 29 MEQ/L (21-32); CHLORIDE LEVEL 104 MEQ/L (98-107); GLOMERULAR FILTRATION RATE > 60.0 (>51); GLUCOSE, FASTING 166 MG/DL (70-100); POTASSIUM SERUM 4.4 MEQ/L (3.5-5.1); SODIUM LEVEL 138 MEQ/L (136-145); TOTAL PROTEIN 6.6 GM/DL (6.4-8.2)
[2020-10-26] MEDS: IPRATROPIUM 0.5MG/ALBUTEROL 2.5MG INH SOL UD 3ML (DUONEB) NEB SCH ×4 (08:23→19:20)
[2020-10-26] MEDS: methylPREDNISolone 40MG 1ML VIAL IV SCH ×2 (09:19→21:36)
[2020-10-26] MEDS: guaiFENesin ER 600 MG TAB PO SCH ×2 (09:20→21:37)
[2020-10-26] MEDS: METOPROLOL TART 25 MG TABLET PO SCH ×2 (09:20→21:37)
[2020-10-26] MEDS: DOCUSATE SODIUM 100MG CAPSULE PO SCH ×2 (09:20→21:00)
[2020-10-26] MEDS: PANTOPRAZOLE 40MG TAB (PROTONIX) PO SCH ×2 (09:20→21:37)
[2020-10-26] MEDS: ENOXAPARIN 100MG/1ML SYRINGE (J1650 PER 10MG) SC SCH ×2 (09:20→21:36)
--- NOTE | 2020-10-26 18:00 | IPNPDOC ---
Subjective Date Seen The patient was seen on 10/26/20. Subjective Chief Complaint/HPI Mrs. Jordan is a 50 year old female who is here with acute hypoxemic respiratory failure 2/2 ARDS 2/2 COVID 19 and incarcerated incisional hernia. This morning, denies chest pain or worsening dyspnea. Still requiring Vapotherm. Objective Physical Examination General Exam: Positive: Other (dyspneic at rest just with talking) Eye Exam: Negative: Sclera icteric ENT Exam: Positive: Atraumatic Chest Exam: Positive: Clear to auscultation Heart Exam: Positive: Rate Normal Abdomen Exam: Positive: Normal bowel sounds, Soft; Negative: Tenderness, Hepatospenomegaly Extremity Exam: Positive: Other (left upper extremity soft tissue hematoma is unchanged in size.); Negative: Tenderness Neuro Exam: Positive: Normal Speech Psych Exam: Positive: Mental status NL Assessment /Plan Assessment rs. Jordan is a 50 year old female who is here with acute hypoxemic respiratory failure 2/2 ARDS 2/2 COVID 19 and incarcerated incisional hernia. She has been hospitalized over a month and will require rehab. When here oxygen requirements are lower, she can be placed to rehab. Plan/VTE VTE Prophylaxis Ordered?: Yes Plan 1. Acute hypoxemic respiratory failure 2/2 ARDS 2/2 COVID-19 -Acute COVID-19 has resolved. Patient has completed treatment with tocilizumab, remdesivir, and decadron. -Patients hypoxia is multifactorial. 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 She is on solumedrol 15 mg IV q12 -Pulmonary medicine has been consulted and is following intermittently. -She is continued on full dose Lovenox for possible PE. She had not received a CTA initially given the severity of her hypoxia. She has shown improvement. She does still desaturate with movement although not as significantly. Could consider performing CTA as she may be able to tolerate. This would help guide the duration of her anticoagulation therapy. Although she likely has pulmonary hypertension given her severe hypoxia and therefore would benefit from anticoagulation regardless -Will defer duration of anticoagulation to Pulmonary medicine in regards to whether she will need life long 2. Morbilliform Rash -thought to be 2/2 bactrim, improved after DC. 3. Sinus Tachycardia -Patient continues to be in sinus tachycardia. Likely secondary to hypoxia. Echocardiogram has resulted without any significant findings. Her tachycardia is resolving. Her HR is currently 100-110 improved from 130 -Continue Lopressor 25mg BID and Cardizem 60mg q6hr 4. Transient Atrial fibrillation -Patient has remained in sinus. Was noted to have an episode of atrial fibrillation earlier in her hospitalization likely driven by hypoxia 5. Hematuria -Has resolved. Patient is on full dose anticoagulation. Will continue to monitor 6. JAQUELINE -Patient is currently on Bilevel 7. Incarcerated Incisional Hernia -s/p surgical correction on 09/02/2020 -Healing well. No acute complications 8. Physical Deconditioning/Debility -Patient has an extended hospital stay of over 1 month with critical illness. She is severely debilitated. She is working with physical therapy. She will need half-way rehab pending clinical improvement. 9. Constipation -Bowel regimen ordered 10. GI prophylaxis -Protonix 11. DVT prophylaxis -Lovenox DISPOSITION: Pending improvement in oxygen requirements. Will need rehab. VS, I&O, 24H, Fishbone Vital Signs/I&O Vital Signs Date Time Temp Pulse Resp B/P (MAP) Pulse Ox O2 Delivery O2 Flow Rate FiO2 10/26/20 16:00 97.2 109 22 111/74 (86) 92 HVNI-Vapotherm 25.0 80 I&O- Last 24 Hours up to 6 AM 10/26/20 06:00 Intake Total 1200 ml Output Total 1000 ml Balance 200 ml Laboratory Data 24H LABS Laboratory Tests 2 10/26/20 05:32: Immature Granulocyte % (Auto) 2.1, Neutrophils (%) (Auto) 87.1H, Lymphocytes (%) (Auto) 7.2L, Monocytes (%) (Auto) 3.3, Eosinophils (%) (Auto) 0.0, Basophils (%) (Auto) 0.3, Neutrophils # (Auto) 10.0H, Lymphocytes # (Auto) 0.8L, Monocytes # (Auto) 0.4, Eosinophils # (Auto) 0.0, Basophils # (Auto) 0.0, Nucleated Red Blood Cells % (auto) 0.2H, Anion Gap 5L, Glomerular Filtration Rate > 60.0, Calcium Level 9.2, Total Bilirubin 0.4, Aspartate Amino Transf (AST/SGOT) 16, Alanine Aminotransferase (ALT/SGPT) 72, Alkaline Phosphatase 42L, Total Protein 6.6, Albumin 2.8L, Albumin/Globulin Ratio 0.7L CBC/BMP Laboratory Tests 10/26/20 05:32 JACINDA THOMASON DO October 26, 2020 18:00
[2020-10-26] MEDS: SERTRALINE HCL 25 MG TABLET PO SCH (21:36)
[2020-10-26] MEDS: ACETAMINOPHEN TAB 650MG DOSE (2X325MG) PO PRN (22:59)
[2020-10-27] VITALS (7 sets, daily range): BP systolic 117–136; BP diastolic 65–85
[2020-10-27] MEDS: ALPRAZolam 0.5 MG TAB PO SCH ×3 (05:13→21:20)
[2020-10-27] MEDS: SODIUM CHLORIDE 0.9% INJ 10 ML SYR IV SCH ×2 (05:14→17:26)
[2020-10-27 05:33] LABS: HEMATOCRIT 39.6 % (36.0-47.0); HEMOGLOBIN 12.9 g/dl (12.0-15.5); MEAN CORPUSCULAR HEMOGLOBIN 31.6 pg (27.0-33.0); MEAN CORPUSCULAR HGB CONC 32.6 g/dl (32.0-36.5); MEAN CORPUSCULAR VOLUME 97.1 fl (80.0-96.0); PLATELET COUNT, AUTOMATED 216 10^3/uL (150-450); RED BLOOD COUNT 4.08 10^6/uL (4.00-5.40); WHITE BLOOD COUNT 10.9 10^3/uL (4.0-10.0)
[2020-10-27 05:52] LABS: BLOOD UREA NITROGEN 21 MG/DL (7-18); CALCIUM LEVEL 9.7 MG/DL (8.5-10.1); CARBON DIOXIDE LEVEL 29 MEQ/L (21-32); CHLORIDE LEVEL 103 MEQ/L (98-107); CREATININE FOR GFR 0.38 MG/DL (0.55-1.30); GLOMERULAR FILTRATION RATE > 60.0 (>51); GLUCOSE, FASTING 182 MG/DL (70-100); POTASSIUM SERUM 4.1 MEQ/L (3.5-5.1); SODIUM LEVEL 139 MEQ/L (136-145)
[2020-10-27] MEDS: IPRATROPIUM 0.5MG/ALBUTEROL 2.5MG INH SOL UD 3ML (DUONEB) NEB SCH ×4 (07:45→20:02)
[2020-10-27] MEDS: DOCUSATE SODIUM 100MG CAPSULE PO SCH ×2 (09:00→20:40)
--- NOTE | 2020-10-27 10:00 | IPNPDOC ---
Subjective Date Seen The patient was seen on 10/27/20. Subjective Chief Complaint/HPI Mrs. Jordan is a 50 year old female who is here with acute hypoxemic respiratory failure 2/2 ARDS 2/2 COVID 19 and incarcerated incisional hernia. This morning, she still requires the Vapother. She denies any chest pain, and her breathing is about the same. I encouraged her to use the IS. Objective Physical Examination General Exam: Positive: Alert, Cooperative Eye Exam: Negative: Sclera icteric ENT Exam: Positive: Atraumatic Chest Exam: Positive: Clear to auscultation Heart Exam: Positive: Rate Normal Abdomen Exam: Positive: Normal bowel sounds, Soft; Negative: Tenderness, Hepatospenomegaly Extremity Exam: Positive: Other (left upper extremity soft tissue hematoma is unchanged in size.); Negative: Tenderness Neuro Exam: Positive: Normal Speech Psych Exam: Positive: Mental status NL Assessment /Plan Assessment Mrs. Jordan is a 50 year old female who is here with acute hypoxemic respiratory failure 2/2 ARDS 2/2 COVID 19 and incarcerated incisional hernia. She has been hospitalized over a month and will require rehab. When here oxygen requirements are lower, she can be placed to rehab. Continues with Solumedrol 15mg q12h and Lovenox for possible PE. Encourage use of IS. Plan/VTE VTE Prophylaxis Ordered?: Yes Plan 1. Acute hypoxemic respiratory failure 2/2 ARDS 2/2 COVID-19 -Acute COVID-19 has resolved. Patient has completed treatment with tocilizumab, remdesivir, and decadron. -Patients hypoxia is multifactorial. 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 She is on solumedrol 15 mg IV q12 -Pulmonary medicine has been consulted and is following intermittently. -She is continued on full dose Lovenox for possible PE. She had not received a CTA initially given the severity of her hypoxia. She has shown improvement. She does still desaturate with movement although not as significantly. Could consider performing CTA as she may be able to tolerate. This would help guide the duration of her anticoagulation therapy. Although she likely has pulmonary hypertension given her severe hypoxia and therefore would benefit from anticoagulation regardless -Will defer duration of anticoagulation to Pulmonary medicine in regards to whether she will need life long 2. Morbilliform Rash -thought to be 2/2 bactrim, improved after DC. 3. Sinus Tachycardia -Patient continues to be in sinus tachycardia. Likely secondary to hypoxia. Echocardiogram has resulted without any significant findings. Her tachycardia is resolving. Her HR is currently 100-110 improved from 130 -Continue Lopressor 25mg BID and Cardizem 60mg q6hr 4. Transient Atrial fibrillation -Patient has remained in sinus. Was noted to have an episode of atrial fibrillation earlier in her hospitalization likely driven by hypoxia 5. Hematuria -Has resolved. Patient is on full dose anticoagulation. Will continue to monitor 6. JAQUELINE -Patient is currently on Bilevel 7. Incarcerated Incisional Hernia -s/p surgical correction on 09/02/2020 -Healing well. No acute complications 8. Physical Deconditioning/Debility -Patient has an extended hospital stay of over 1 month with critical illness. She is severely debilitated. She is working with physical therapy. 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 9. Constipation -Bowel regimen ordered 10. GI prophylaxis -Protonix 11. DVT prophylaxis -Lovenox DISPOSITION: Pending improvement in oxygen requirements. Will need rehab. [facility] Vital Signs Date Time Temp Pulse Resp B/P (MAP) Pulse Ox O2 Delivery O2 Flow Rate FiO2 10/27/20 08:00 97.2 101 22 131/85 (100) 89 HVNI-Vapotherm 22.0 75 I&O- Last 24 Hours up to 6 AM 10/27/20 06:00 Intake Total 480 ml Output Total 200 ml Balance 280 ml Laboratory Data 24H LABS Laboratory Tests 2 10/27/20 05:11: Nucleated Red Blood Cells % (auto) 0.2H, Anion Gap 7L, Glomerular Filtration Rate > 60.0, Calcium Level 9.7 CBC/BMP Laboratory Tests 10/27/20 05:11 JACINDA THOMASON DO October 27, 2020 10:00
[2020-10-27] MEDS: METOPROLOL TART 25 MG TABLET PO SCH ×2 (10:25→20:34)
[2020-10-27] MEDS: methylPREDNISolone 40MG 1ML VIAL IV SCH ×2 (10:25→20:35)
[2020-10-27] MEDS: SIMETHICONE 80MG CHEW TAB PO PRN ×2 (10:26→19:52)
[2020-10-27] MEDS: ENOXAPARIN 100MG/1ML SYRINGE (J1650 PER 10MG) SC SCH ×2 (10:26→20:35)
[2020-10-27] MEDS: ACETAMINOPHEN TAB 650MG DOSE (2X325MG) PO PRN ×2 (10:26→19:53)
[2020-10-27] MEDS: PANTOPRAZOLE 40MG TAB (PROTONIX) PO SCH ×2 (10:26→20:33)
[2020-10-27] MEDS: guaiFENesin ER 600 MG TAB PO SCH ×2 (10:26→20:33)
[2020-10-27] MEDS: SERTRALINE HCL 25 MG TABLET PO SCH (20:34)
[2020-10-28 00:25] VITALS: BP 125/80
[2020-10-28 04:00] VITALS: BP 141/81
[2020-10-28] MEDS: SIMETHICONE 80MG CHEW TAB PO PRN ×3 (04:13→17:43)
[2020-10-28] MEDS: SODIUM CHLORIDE 0.9% INJ 10 ML SYR IV SCH ×2 (05:48→17:43)
[2020-10-28] MEDS: ALPRAZolam 0.5 MG TAB PO SCH ×3 (05:50→21:27)
[2020-10-28 06:23] LABS: HEMATOCRIT 40.2 % (36.0-47.0); HEMOGLOBIN 12.7 g/dl (12.0-15.5); MEAN CORPUSCULAR HEMOGLOBIN 30.9 pg (27.0-33.0); MEAN CORPUSCULAR HGB CONC 31.6 g/dl (32.0-36.5); MEAN CORPUSCULAR VOLUME 97.8 fl (80.0-96.0); PLATELET COUNT, AUTOMATED 210 10^3/uL (150-450); RED BLOOD COUNT 4.11 10^6/uL (4.00-5.40); WHITE BLOOD COUNT 11.2 10^3/uL (4.0-10.0)
[2020-10-28 06:41] LABS: BLOOD UREA NITROGEN 19 MG/DL (7-18); CARBON DIOXIDE LEVEL 29 MEQ/L (21-32); CHLORIDE LEVEL 106 MEQ/L (98-107); CREATININE FOR GFR 0.27 MG/DL (0.55-1.30); GLOMERULAR FILTRATION RATE > 60.0 (>51); GLUCOSE, FASTING 143 MG/DL (70-100); POTASSIUM SERUM 3.8 MEQ/L (3.5-5.1); SODIUM LEVEL 142 MEQ/L (136-145)
[2020-10-28 08:00] VITALS: BP 143/83
[2020-10-28] MEDS: IPRATROPIUM 0.5MG/ALBUTEROL 2.5MG INH SOL UD 3ML (DUONEB) NEB SCH ×4 (08:00→19:28)
[2020-10-28] MEDS: BACTRIM 160MG/800MG DS TAB PO SCH (09:00)
[2020-10-28] MEDS: DOCUSATE SODIUM 100MG CAPSULE PO SCH ×3 (09:00→21:27)
[2020-10-28] MEDS: methylPREDNISolone 40MG 1ML VIAL IV SCH ×2 (09:59→21:28)
[2020-10-28] MEDS: ENOXAPARIN 100MG/1ML SYRINGE (J1650 PER 10MG) SC SCH ×2 (10:00→21:28)
[2020-10-28] MEDS: METOPROLOL TART 25 MG TABLET PO SCH ×2 (10:00→21:27)
[2020-10-28] MEDS: PANTOPRAZOLE 40MG TAB (PROTONIX) PO SCH ×2 (10:00→21:27)
[2020-10-28] MEDS: guaiFENesin ER 600 MG TAB PO SCH ×2 (10:00→21:27)
[2020-10-28] MEDS: MAALOX 30 ML SUSP *UDC PO PRN ×2 (11:39→20:11)
[2020-10-28 12:00] VITALS: BP 124/82
[2020-10-28] MEDS ORDERED: ISOVUE-370 76% 100ML VIAL As Ordered ONE (12:08)
--- NOTE | 2020-10-28 12:43 | REP ---
INDICATION: right pleuritic chest pain, Look for PE or aorta problems COMPARISON: 09/06/2020 TECHNIQUE: Axial contrast enhanced images from the thoracic inlet to the upper abdomen using pulmonary embolus technique with multiplanar re-formations. 75 ml Isovue 370 intravenous contrast material administered without complication. This CT examination was performed using the following dose reduction techniques: Automated exposure control, adjustment of mA and/or kv according to the patient's size, and use of iterative reconstruction technique. FINDINGS: Satisfactory enhancement of the pulmonary vasculature is achieved and no filling defects are identified to suggest pulmonary embolus. Further evaluation of the mediastinum demonstrates normal thoracic aorta, heart and pericardium. The bilateral lung nuñez suggest diffuse chronic interstitial changes and scattered scarring along with few scattered blebs/bullae primarily noted at the right base as well as superimposed alveolar and interstitial infiltrates throughout the bilateral lung nuñez and primarily involving lingula and lower lobes (right greater than left). Small right pleural effusion is also identified. IMPRESSION: No evidence for pulmonary embolus. Normal thoracic aorta. Relatively new chronic appearing changes have formed with superimposed multifocal alveolar and interstitial infiltrates. <Electronically signed by Israel Holguin > 10/28/20 [id number]
--- NOTE | 2020-10-28 14:57 | IPNPDOC ---
Subjective Date Seen The patient was seen on 10/28/20. Subjective Chief Complaint/HPI Mrs. Jordan is a 50 year old female who is here with acute hypoxemic respiratory failure 2/2 ARDS 2/2 COVID 19 and incarcerated incisional hernia. This morning, she was complaining of right sided chest pain. Pain was sharp and pleuritic. Ordered for CT angio of the chest which was negative for PE. Imaging does demonstrate multifocal alveolar and interstitial infiltrates. Will obtain procalcitonin. Otherwise, patient still requires vapotherm. She has been on steroids since September which has been more than a month ago. Will start patient on PCP prophylaxis. Objective Physical Examination General Exam: Positive: Alert, Cooperative Eye Exam: Negative: Sclera icteric ENT Exam: Positive: Atraumatic Chest Exam: Positive: Clear to auscultation Heart Exam: Positive: Rate Normal Abdomen Exam: Positive: Normal bowel sounds, Soft; Negative: Tenderness, Hepatospenomegaly Extremity Exam: Positive: Other (left upper extremity soft tissue hematoma is unchanged in size.); Negative: Tenderness Neuro Exam: Positive: Normal Speech Psych Exam: Positive: Mental status NL Assessment /Plan Assessment Mrs. Jordan is a 50 year old female who is here with acute hypoxemic respiratory failure 2/2 ARDS 2/2 COVID 19 and incarcerated incisional hernia. She has been hospitalized over a month and will require rehab. When here oxygen requirements are lower, she can be placed to rehab. Continues with Solumedrol 15mg q12h and Lovenox for IPAH. Encourage use of IS. Patient has been on steroids for more than a month. Patient will be started on PCP prophylaxis. Plan/VTE VTE Prophylaxis Ordered?: Yes Plan 1. Acute hypoxemic respiratory failure 2/2 ARDS 2/2 COVID-19 -Acute COVID-19 has resolved. Patient has completed treatment with tocilizumab, remdesivir, and decadron. -Patients hypoxia is multifactorial. 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 She is on solumedrol 15 mg IV q12. PCP prophylaxis with Bactrim 1DS qD -Pulmonary medicine has been consulted and is following intermittently. -She is continued on full dose Lovenox for possible PE. She had not received a CTA initially given the severity of her hypoxia. She has shown improvement. She does still desaturate with movement although not as significantly. Could co nsider performing CTA as she may be able to tolerate. This would help guide the duration of her anticoagulation therapy. Although she likely has pulmonary hypertension given her severe hypoxia and therefore would benefit from anticoagulation regardless -Will defer duration of anticoagulation to Pulmonary medicine in regards to whether she will need life long 2. Morbilliform Rash -thought to be 2/2 bactrim, improved after DC. 3. Sinus Tachycardia -Patient continues to be in sinus tachycardia. Likely secondary to hypoxia. Echocardiogram has resulted without any significant findings. Her tachycardia is resolving. Her HR is currently 100-110 improved from 130 -Continue Lopressor 25mg BID and Cardizem 60mg q6hr 4. Transient Atrial fibrillation -Patient has remained in sinus. Was noted to have an episode of atrial fibrillation earlier in her hospitalization likely driven by hypoxia 5. Hematuria -Has resolved. Patient is on full dose anticoagulation. Will continue to monitor 6. JAQUELINE -Patient is currently on Bilevel 7. Incarcerated Incisional Hernia -s/p surgical correction on 09/02/2020 -Healing well. No acute complications 8. Physical Deconditioning/Debility -Patient has an extended hospital stay of over 1 month with critical illness. She is severely debilitated. She is working with physical therapy. She will need long-term rehab pending clinical improvement. 9. Constipation -Bowel regimen ordered 10. GI prophylaxis -Protonix 11. DVT prophylaxis -Lovenox DISPOSITION: Pending improvement in oxygen requirements. Will need rehab. VS, I&O, 24H, Luis Vital Signs/I&O Vital Signs Date Time Temp Pulse Resp B/P (MAP) Pulse Ox O2 Delivery O2 Flow Rate FiO2 10/28/20 12:00 97.3 84 22 124/82 (96) 89 HVNI-Vapotherm 22.0 75 I&O- Last 24 Hours up to 6 AM 10/28/20 06:00 Intake Total 1500 ml Output Total 575 ml Balance 925 ml Laboratory Data 24H LABS Laboratory Tests 2 10/28/20 05:45: Nucleated Red Blood Cells % (auto) 0.0, Anion Gap 7L, Glomerular Filtration Rate > 60.0, Calcium Level 9.0 10/28/20 11:36: Troponin I < 0.02 10/28/20 14:05: CBC/BMP Laboratory Tests 10/28/20 05:45 JACINDA THOMASON DO October 28, 2020 14:57
--- NOTE | 2020-10-28 17:19 | ECGEPIP ---
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
[2020-10-28 20:00] VITALS: BP 122/89
[2020-10-28] MEDS: SERTRALINE HCL 25 MG TABLET PO SCH (21:27)
[2020-10-29] VITALS (7 sets, daily range): BP systolic 117–138; BP diastolic 65–89
[2020-10-29] MEDS: SIMETHICONE 80MG CHEW TAB PO PRN (00:26)
[2020-10-29] MEDS: CALCIUM CARBONATE 500 MG CHEW U/D PO PRN (01:58)
[2020-10-29] MEDS: ACETAMINOPHEN TAB 650MG DOSE (2X325MG) PO PRN ×4 (02:38→20:47)
[2020-10-29] MEDS: SODIUM CHLORIDE 0.9% INJ 10 ML SYR IV SCH ×2 (04:58→18:16)
[2020-10-29 05:03] LABS: HEMATOCRIT 39.8 % (36.0-47.0); HEMOGLOBIN 12.7 g/dl (12.0-15.5); MEAN CORPUSCULAR HEMOGLOBIN 31.2 pg (27.0-33.0); MEAN CORPUSCULAR HGB CONC 31.9 g/dl (32.0-36.5); MEAN CORPUSCULAR VOLUME 97.8 fl (80.0-96.0); PLATELET COUNT, AUTOMATED 198 10^3/uL (150-450); RED BLOOD COUNT 4.07 10^6/uL (4.00-5.40); WHITE BLOOD COUNT 10.9 10^3/uL (4.0-10.0)
[2020-10-29 05:10] LABS: BLOOD UREA NITROGEN 17 MG/DL (7-18); CALCIUM LEVEL 9.1 MG/DL (8.5-10.1); CARBON DIOXIDE LEVEL 32 MEQ/L (21-32); CHLORIDE LEVEL 103 MEQ/L (98-107); CREATININE FOR GFR 0.26 MG/DL (0.55-1.30); GLOMERULAR FILTRATION RATE > 60.0 (>51); GLUCOSE, FASTING 149 MG/DL (70-100); POTASSIUM SERUM 3.7 MEQ/L (3.5-5.1); SODIUM LEVEL 139 MEQ/L (136-145)
[2020-10-29] MEDS: ALPRAZolam 0.5 MG TAB PO SCH ×3 (05:49→23:38)
[2020-10-29] MEDS: MAALOX 30 ML SUSP *UDC PO PRN (06:56)
[2020-10-29] MEDS: IPRATROPIUM 0.5MG/ALBUTEROL 2.5MG INH SOL UD 3ML (DUONEB) NEB SCH ×4 (07:13→20:16)
--- NOTE | 2020-10-29 08:23 | REP ---
INDICATION: RUQ pain COMPARISON: None. TECHNIQUE: Supine views of the abdomen and pelvis. FINDINGS: Bowel gas pattern is nonspecific and without obstruction or perforation. No organomegaly. No abnormal calcifications. Skeletal structures intact. IMPRESSION: Normal abdominal radiograph. <Electronically signed by Israel Holguin > 10/29/20 0819
[2020-10-29] MEDS ORDERED: LIDOCAINE 5% (LIDODERM) PATCH TD SCH (09:00)
[2020-10-29] MEDS: methylPREDNISolone 40MG 1ML VIAL IV SCH ×2 (09:24→20:51)
[2020-10-29] MEDS: ENOXAPARIN 100MG/1ML SYRINGE (J1650 PER 10MG) SC SCH ×2 (09:24→20:48)
[2020-10-29] MEDS: guaiFENesin ER 600 MG TAB PO SCH ×2 (09:25→20:44)
[2020-10-29] MEDS: METOPROLOL TART 25 MG TABLET PO SCH ×2 (09:25→20:45)
[2020-10-29] MEDS: BACTRIM 160MG/800MG DS TAB PO SCH (09:25)
[2020-10-29] MEDS: PANTOPRAZOLE 40MG TAB (PROTONIX) PO SCH ×2 (09:25→20:46)
[2020-10-29] MEDS: DOCUSATE SODIUM 100MG CAPSULE PO SCH ×2 (09:25→20:47)
--- NOTE | 2020-10-29 12:00 | IPNPDOC ---
Subjective Date Seen The patient was seen on 10/29/20. Subjective Chief Complaint/HPI Mrs. Jordan is a 50 year old female who is here with acute hypoxemic respiratory failure 2/2 ARDS 2/2 COVID 19 and incarcerated incisional hernia. Yesterday, she had the CT angio chest which demonstrated some infiltrate. Procalcionin was <0.1, unlikely infection. Otherwise, this morning, right sided chest pain still persist. There is some extension from the RUQ of the abdomen with abdominal tenderness. KUB was negative. Will order CT abd/pelvis. Otherwise, she still requires vapotherm. Objective Physical Examination General Exam: Positive: Alert, Cooperative Eye Exam: Negative: Sclera icteric ENT Exam: Positive: Atraumatic Chest Exam: Positive: Clear to auscultation Heart Exam: Positive: Rate Normal Abdomen Exam: Positive: Normal bowel sounds, Soft, Tenderness Extremity Exam: Positive: Other (left upper extremity soft tissue hematoma is unchanged in size.); Negative: Tenderness Neuro Exam: Positive: Normal Speech Psych Exam: Positive: Mental status NL Assessment /Plan Assessment Mrs. Jordan is a 50 year old female who is here with acute hypoxemic respiratory failure 2/2 ARDS 2/2 COVID 19 and incarcerated incisional hernia. She has been hospitalized over a month and will require rehab. When here oxygen requirements are lower, she can be placed to rehab. Continues with Solumedrol 15mg q12h and Lovenox for IPAH. Encourage use of IS. Patient has been on steroids for more than a month. Patient will be started on PCP prophylaxis. Patient have been have right sided pain. Starts from the RUQ of the abdomen and goes up to the right shoulder. CT angio chest was negative for PE. Will order CT abd/pelvis to look for a cause. Plan/VTE VTE Prophylaxis Ordered?: Yes Plan 1. Acute hypoxemic respiratory failure 2/2 ARDS 2/2 COVID-19 -Acute COVID-19 has resolved. Patient has completed treatment with tocilizumab, remdesivir, and decadron. -Patients hypoxia is multifactorial. 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 She is on solumedrol 15 mg IV q12. PCP prophylaxis with Bactrim 1DS qD -Pulmonary medicine has been consulted and is following intermittently. -She is continued on full dose Lovenox for possible PE. She had not received a CTA initially given the severity of her hypoxia. She has shown improvement. She does still desaturate with movement although not as significantly. Could consider performing CTA as she may be able to tolerate. This would help guide the duration of her anticoagulation therapy. Although she likely has pulmonary hypertension given her severe hypoxia and therefore would benefit from anticoagulation regardless -Will defer duration of anticoagulation to Pulmonary medicine in regards to whether she will need life long 2. Morbilliform Rash -thought to be 2/2 bactrim, improved after DC. 3. Sinus Tachycardia -Patient continues to be in sinus tachycardia. Likely secondary to hypoxia. Echocardiogram has resulted without any significant findings. Her tachycardia is resolving. Her HR is currently 100-110 improved from 130 -Continue Lopressor 25mg BID and Cardizem 60mg q6hr 4. Transient Atrial fibrillation -Patient has remained in sinus. Was noted to have an episode of atrial fibrillation earlier in her hospitalization likely driven by hypoxia 5. Hematuria -Has resolved. Patient is on full dose anticoagulation. Will continue to monitor 6. JAQUELINE -Patient is currently on Bilevel 7. Incarcerated Incisional Hernia -s/p surgical correction on 09/02/2020 -Healing well. No acute complications 8. Physical Deconditioning/Debility -Patient has an extended hospital stay of over 1 month with critical illness. She is severely debilitated. She is working with physical therapy. 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 9. Constipation -Bowel regimen ordered 10. GI prophylaxis -Protonix 11. DVT prophylaxis -Lovenox DISPOSITION: Pending CT abd/pelvis results. Pending improvement in oxygen requirements. Will need rehab. VS, I&O, 24H, Fishbone Vital Signs/I&O Vital Signs Date Time Temp Pulse Resp B/P (MAP) Pulse Ox O2 Delivery O2 Flow Rate FiO2 10/29/20 09:25 115 126/79 10/29/20 07:23 92 HVNI-Vapotherm 25.0 80 10/29/20 04:05 97.0 21 I&O- Last 24 Hours up to 6 AM 10/29/20 06:00 Intake Total 930 ml Output Total 475 ml Balance 455 ml Laboratory Data 24H LABS Laboratory Tests 2 10/28/20 14:05: Procalcitonin 0.08 10/29/20 04:38: Lactic Acid Level 1.2 10/29/20 04:39: Nucleated Red Blood Cells % (auto) 0.2H, Anion Gap 4L, Glomerular Filtration Rate > 60.0, Calcium Level 9.1 CBC/BMP Laboratory Tests 10/29/20 04:39 JACINDA THOMASON DO October 29, 2020 12:00
[2020-10-29 12:07] LABS: ALBUMIN 2.7 GM/DL (3.2-5.2); ALT/SGPT 48 U/L (12-78); BILIRUBIN,DIRECT 0.2 MG/DL (0.0-0.2); BILIRUBIN,TOTAL 0.6 MG/DL (0.2-1.0); TOTAL PROTEIN 6.9 GM/DL (6.4-8.2)
[2020-10-29] MEDS: GASTROGRAFIN SOLUTION 30ML PO SCH ×3 (13:30→14:00)
[2020-10-29] MEDS ORDERED: LIDOCAINE 5% (LIDODERM) PATCH TD ONE (16:15)
[2020-10-29] MEDS ORDERED: ALPRAZolam 0.5 MG TAB PO ONE (17:40)
[2020-10-29] MEDS: SERTRALINE HCL 25 MG TABLET PO SCH (20:46)
[2020-10-29] MEDS: **NOTE PATIENT COMMENT** MISC XX SCH (21:00)
[2020-10-30] VITALS (11 sets, daily range): BP systolic 119–144; BP diastolic 71–98; O2SAT 90–93
[2020-10-30] MEDS: ALPRAZolam 0.5 MG TAB PO SCH ×3 (05:27→22:30)
[2020-10-30] MEDS: SODIUM CHLORIDE 0.9% INJ 10 ML SYR IV SCH ×2 (05:27→17:03)
[2020-10-30 05:52] LABS: HEMATOCRIT 41.3 % (36.0-47.0); HEMOGLOBIN 13.2 g/dl (12.0-15.5); MEAN CORPUSCULAR HEMOGLOBIN 31.2 pg (27.0-33.0); MEAN CORPUSCULAR VOLUME 97.6 fl (80.0-96.0); PLATELET COUNT, AUTOMATED 218 10^3/uL (150-450); RED BLOOD COUNT 4.23 10^6/uL (4.00-5.40); WHITE BLOOD COUNT 12.2 10^3/uL (4.0-10.0)
[2020-10-30 06:34] LABS: BLOOD UREA NITROGEN 15 MG/DL (7-18); CALCIUM LEVEL 9.4 MG/DL (8.5-10.1); CARBON DIOXIDE LEVEL 31 MEQ/L (21-32); CHLORIDE LEVEL 100 MEQ/L (98-107); CREATININE FOR GFR 0.17 MG/DL (0.55-1.30); GLOMERULAR FILTRATION RATE > 60.0 (>51); GLUCOSE, FASTING 147 MG/DL (70-100); POTASSIUM SERUM 4.1 MEQ/L (3.5-5.1); SODIUM LEVEL 138 MEQ/L (136-145)
[2020-10-30] MEDS: IPRATROPIUM 0.5MG/ALBUTEROL 2.5MG INH SOL UD 3ML (DUONEB) NEB SCH ×4 (08:30→19:45)
[2020-10-30] MEDS: BACTRIM 160MG/800MG DS TAB PO SCH (08:40)
[2020-10-30] MEDS: PANTOPRAZOLE 40MG TAB (PROTONIX) PO SCH ×2 (08:40→20:48)
[2020-10-30] MEDS: DOCUSATE SODIUM 100MG CAPSULE PO SCH ×2 (08:40→20:50)
[2020-10-30] MEDS: guaiFENesin ER 600 MG TAB PO SCH ×2 (08:40→20:49)
[2020-10-30] MEDS: methylPREDNISolone 40MG 1ML VIAL IV SCH ×2 (08:41→20:50)
[2020-10-30] MEDS: METOPROLOL TART 25 MG TABLET PO SCH ×2 (08:41→20:50)
[2020-10-30] MEDS: LIDOCAINE 5% (LIDODERM) PATCH TD SCH (08:42)
[2020-10-30] MEDS: ENOXAPARIN 100MG/1ML SYRINGE (J1650 PER 10MG) SC SCH ×2 (08:43→20:50)
[2020-10-30] MEDS: ANALGESIC BALM CRM 3OZ TOP SCH ×4 (09:00→20:51)
--- NOTE | 2020-10-30 10:13 | IPNPDOC ---
Subjective Date Seen The patient was seen on 10/30/20. Subjective Chief Complaint/HPI Mrs. Jordan is a 50 year old female who is here with acute hypoxemic respiratory failure 2/2 ARDS 2/2 COVID 19 and incarcerated incisional hernia. Yesterday, attempted to order CT abd/pelvis, but patient's respiratory status declined. Spoke with Dr. Chan, patient will need to be on the BIPAP to help expand the lungs. Patient will need to be on it in the day time as well if her respiratory status is declining. Patient was feeling a little claustrophobic with the BIPAP on yesterday. She was given an extra dose of Xanax which helped. When she was seen this morning, she was eating breakfast on the Vapotherm. She still has the right side pain. She may have pulled something while working on the machine. Lidocaine patches helped. Will add on Bengay. Objective Physical Examination General Exam: Positive: Alert, Cooperative Eye Exam: Negative: Sclera icteric ENT Exam: Positive: Atraumatic Chest Exam: Positive: Clear to auscultation Heart Exam: Positive: Rate Normal Abdomen Exam: Positive: Normal bowel sounds, Soft, Tenderness Extremity Exam: Positive: Other (left upper extremity soft tissue hematoma is unchanged in size.); Negative: Tenderness Neuro Exam: Positive: Normal Speech Psych Exam: Positive: Anxiety Assessment /Plan Assessment Mrs. Jordan is a 50 year old female who is here with acute hypoxemic respiratory failure 2/2 ARDS 2/2 COVID 19 and incarcerated incisional hernia. She has been hospitalized over a month and will require rehab. When here oxygen requirements are lower, she can be placed to rehab. Continues with Solumedrol 15mg q12h and Lovenox for IPAH. Encourage use of IS. Patient will need to use the BIPAP during the day time to help expand her lungs. Patient has been on steroids for more than a month. Patient will be started on PCP prophylaxis. Patient have been have right sided pain. Starts from the RUQ of the abdomen and goes up to the right shoulder. CT angio chest was negative for PE. Due to patient's worsening respiratory status she would not be able to tolerate the CT abd/pelvis. Pain may be musculoskeletal. Lidocaine patches helped. Will add on Bengay. Plan/VTE VTE Prophylaxis Ordered?: Yes Plan 1. Acute hypoxemic respiratory failure 2/2 ARDS 2/2 COVID-19 -Acute COVID-19 has resolved. Patient has completed treatment with tocilizumab, remdesivir, and decadron. -Patients hypoxia is multifactorial. 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 She is on solumedrol 15 mg IV q12. PCP prophylaxis with Bactrim 1DS qD -Pulmonary medicine has been consulted and is following intermittently. -She is continued on full dose Lovenox for possible PE. She had not received a CTA initially given the severity of her hypoxia. She has shown improvement. She does still desaturate with movement although not as significantly. Could consider performing CTA as she may be able to tolerate. This would help guide the duration of her anticoagulation therapy. Although she likely has pulmonary hypertension given her severe hypoxia and therefore would benefit from anticoagulation regardless -Will defer duration of anticoagulation to Pulmonary medicine in regards to whether she will need life long -Patient will need to use BIPAP to help expand lungs 2. Morbilliform Rash -thought to be 2/2 bactrim, improved after DC. 3. Sinus Tachycardia -Patient continues to be in sinus tachycardia. Likely secondary to hypoxia. Echocardiogram has resulted without any significant findings. Her tachycardia is resolving. Her HR is currently 100-110 improved from 130 -Continue Lopressor 25mg BID and Cardizem 60mg q6hr 4. Transient Atrial fibrillation -Patient has remained in sinus. Was noted to have an episode of atrial fibrillation earlier in her hospitalization likely driven by hypoxia 5. Hematuria -Has resolved. Patient is on full dose anticoagulation. Will continue to monitor 6. JAQUELINE -Patient is currently on Bilevel 7. Incarcerated Incisional Hernia -s/p surgical correction on 09/02/2020 -Healing well. No acute complications 8. Physical Deconditioning/Debility -Patient has an extended hospital stay of over 1 month with critical illness. She is severely debilitated. She is working with physical therapy. She will need rn transport rehab pending clinical improvement. 9. Constipation -Bowel regimen ordered 10. GI prophylaxis -Protonix 11. DVT prophylaxis -Lovenox DISPOSITION: Pending improvement in oxygen requirements. Will need rehab. VS, I&O, 24H, Fishbone Vital Signs/I&O Vital Signs Date Time Temp Pulse Resp B/P (MAP) Pulse Ox O2 Delivery O2 Flow Rate FiO2 10/30/20 07:08 96.8 112 20 144/98 (113) 93 NIPPV (BIPAP/CPAP) 10/30/20 04:00 15.0 10/29/20 17:00 95 I&O- Last 24 Hours up to 6 AM 10/30/20 06:00 Intake Total 1140 ml Output Total 1050 ml Balance 90 ml Laboratory Data 24H LABS Laboratory Tests 2 10/30/20 05:20: Nucleated Red Blood Cells % (auto) 0.0, Anion Gap 7L, Glomerular Filtration Rate > 60.0, Calcium Level 9.4 CBC/BMP Laboratory Tests 10/30/20 05:20 JACINDA THOMASON DO October 30, 2020 10:13
[2020-10-30] MEDS: ACETAMINOPHEN TAB 650MG DOSE (2X325MG) PO PRN (11:33)
[2020-10-30] MEDS: SERTRALINE HCL 25 MG TABLET PO SCH (20:49)
[2020-10-30] MEDS: **NOTE PATIENT COMMENT** MISC XX SCH (20:52)
[2020-10-31] VITALS (21 sets, daily range): BP systolic 118–142; BP diastolic 74–95; O2SAT 89–95
[2020-10-31] MEDS: SODIUM CHLORIDE 0.9% INJ 10 ML SYR IV SCH ×2 (05:10→17:48)
[2020-10-31 05:20] LABS: HEMATOCRIT 40.8 % (36.0-47.0); HEMOGLOBIN 13.2 g/dl (12.0-15.5); MEAN CORPUSCULAR HEMOGLOBIN 31.6 pg (27.0-33.0); MEAN CORPUSCULAR HGB CONC 32.4 g/dl (32.0-36.5); MEAN CORPUSCULAR VOLUME 97.6 fl (80.0-96.0); PLATELET COUNT, AUTOMATED 227 10^3/uL (150-450); RED BLOOD COUNT 4.18 10^6/uL (4.00-5.40); WHITE BLOOD COUNT 14.1 10^3/uL (4.0-10.0)
[2020-10-31 05:44] LABS: BLOOD UREA NITROGEN 16 MG/DL (7-18); CALCIUM LEVEL 9.2 MG/DL (8.5-10.1); CARBON DIOXIDE LEVEL 30 MEQ/L (21-32); CHLORIDE LEVEL 99 MEQ/L (98-107); CREATININE FOR GFR 0.22 MG/DL (0.55-1.30); GLOMERULAR FILTRATION RATE > 60.0 (>51); GLUCOSE, FASTING 138 MG/DL (70-100); POTASSIUM SERUM 4.4 MEQ/L (3.5-5.1); SODIUM LEVEL 137 MEQ/L (136-145)
[2020-10-31] MEDS: ALPRAZolam 0.5 MG TAB PO SCH ×3 (06:00→17:48)
[2020-10-31] MEDS: ANALGESIC BALM CRM 3OZ TOP SCH ×4 (07:29→21:03)
[2020-10-31] MEDS: LIDOCAINE 5% (LIDODERM) PATCH TD SCH (07:30)
[2020-10-31] MEDS: methylPREDNISolone 40MG 1ML VIAL IV SCH ×2 (07:30→21:13)
[2020-10-31] MEDS: PANTOPRAZOLE 40MG TAB (PROTONIX) PO SCH ×2 (07:31→21:00)
[2020-10-31] MEDS: guaiFENesin ER 600 MG TAB PO SCH ×2 (07:31→20:59)
[2020-10-31] MEDS: DOCUSATE SODIUM 100MG CAPSULE PO SCH ×2 (07:31→21:00)
[2020-10-31] MEDS: METOPROLOL TART 25 MG TABLET PO SCH ×2 (07:31→20:59)
[2020-10-31] MEDS: BACTRIM 160MG/800MG DS TAB PO SCH (07:32)
[2020-10-31] MEDS: ENOXAPARIN 100MG/1ML SYRINGE (J1650 PER 10MG) SC SCH ×2 (07:32→21:02)
[2020-10-31] MEDS: ACETAMINOPHEN TAB 650MG DOSE (2X325MG) PO PRN ×2 (07:35→17:47)
[2020-10-31] MEDS: IPRATROPIUM 0.5MG/ALBUTEROL 2.5MG INH SOL UD 3ML (DUONEB) NEB SCH ×4 (08:09→19:22)
[2020-10-31] MEDS ORDERED: FUROSEMIDE 40MG/4ML VIAL (J1940) IV SCH (09:00)
[2020-10-31 10:15] LABS: ABG BASE EXCESS 7.7 (-2.0-2.0); ABG HCO3 32.6 MEQ/L (22.0-26.0); ABG O2 SATURATION 93.6 % (95.0-99.0); ABG PARTIAL PRESSURE CO2 46.3 mmHg (35.0-45.0); ABG PARTIAL PRESSURE O2 65.3 mmHg (75.0-100.0); ABG STANDARD HCO3 31.4 MEQ/L (22.0-26.0); ABG pH (ARTERIAL) 7.465 UNITS (7.350-7.450)
--- NOTE | 2020-10-31 10:42 | IPNPDOC ---
Subjective Date Seen The patient was seen on 10/31/20. Subjective Chief Complaint/HPI Mrs. Jordan is a 50 year old female who is here with acute hypoxemic respiratory failure 2/2 ARDS 2/2 COVID 19 and incarcerated incisional hernia. Patient respiratory status was declining. Patient feels short of breath and has right sided musculoskeletal pain. Last night she worse the BIPAP for about 3 hours. Discussed the case with Dr. Chan. Patient will need to wear the BIPAP 24/7 with 15min breaks every 4 hours. Compliance is important as this is a life or matter. Objective Physical Examination General Exam: Positive: Alert, Cooperative Eye Exam: Negative: Sclera icteric ENT Exam: Positive: Atraumatic Chest Exam: Positive: Clear to auscultation Heart Exam: Positive: Rate Normal Abdomen Exam: Positive: Normal bowel sounds, Soft, Tenderness Extremity Exam: Positive: Other (left upper extremity soft tissue hematoma is unchanged in size.); Negative: Tenderness Neuro Exam: Positive: Normal Speech Psych Exam: Positive: Anxiety Assessment /Plan Assessment Mrs. Jordan is a 50 year old female who is here with acute hypoxemic respiratory failure 2/2 ARDS 2/2 COVID 19 and incarcerated incisional hernia. She has been hospitalized over a month and will require rehab. When here oxygen requirements are lower, she can be placed to rehab. Continues with Solumedrol 15mg q12h and Lovenox for IPAH. Encourage use of IS. Patient will need to use the BIPAP 24/7 to help expand her lungs. Patient has been on steroids for more than a month. Patient will be started on PCP prophylaxis. Patient have been have right sided pain. Starts from the RUQ of the abdomen and goes up to the right shoulder. CT angio chest was negative for PE. Due to patient's worsening respiratory status she would not be able to tolerate the CT abd/pelvis. Pain may be musculoskeletal. Lidocaine patches helped. Will add on Bengay. Plan/VTE VTE Prophylaxis Ordered?: Yes Plan 1. Acute hypoxemic respiratory failure 2/2 ARDS 2/2 COVID-19 -Acute COVID-19 has resolved. Patient has completed treatment with tocilizumab, remdesivir, and decadron. -Patients hypoxia is multifactorial. 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 She is on solumedrol 15 mg IV q12. PCP prophylaxis with Bactrim 1DS qD -Pulmonary medicine has been consulted and is following intermittently. -She is continued on full dose Lovenox for possible PE. She had not received a CTA initially given the severity of her hypoxia. She has shown improvement. She does still desaturate with movement although not as significantly. Could consider performing CTA as she may be able to tolerate. This would help guide the duration of her anticoagulation therapy. Although she likely has pulmonary hypertension given her severe hypoxia and therefore would benefit from anticoa gulation regardless -Will defer duration of anticoagulation to Pulmonary medicine in regards to whet her she will need life long -Patient will need to use BIPAP / to help expand lungs. She may have 15min breaks every 4 hours 2. Morbilliform Rash -thought to be 2/2 bactrim, improved after DC. 3. Sinus Tachycardia -Patient continues to be in sinus tachycardia. Likely secondary to hypoxia. Ec hocardiogram has resulted without any significant findings. Her tachycardia is resolving. Her HR is currently 100-110 improved from 130 -Continue Lopressor 25mg BID and Cardizem 60mg q6hr 4. Transient Atrial fibrillation -Patient has remained in sinus. Was noted to have an episode of atrial fibril lation earlier in her hospitalization likely driven by hypoxia 5. Hematuria -Has resolved. Patient is on full dose anticoagulation. Will continue to monitor 6. JAQUELINE -Patient is currently on Bilevel 7. Incarcerated Incisional Hernia -s/p surgical correction on 09/02/2020 -Healing well. No acute complications 8. Physical Deconditioning/Debility -Patient has an extended hospital stay of over 1 month with critical illness. She is severely debilitated. She is working with physical therapy. 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 9. Constipation -Bowel regimen ordered 10. GI prophylaxis -Protonix 11. DVT prophylaxis -Lovenox DISPOSITION: Pending improvement in oxygen requirements. VS, I&O, 24H, Fishbone Vital Signs/I&O Vital Signs Date Time Temp Pulse Resp B/P (MAP) Pulse Ox O2 Delivery O2 Flow Rate FiO2 10/31/20 08:00 95 HVNI-Vapotherm 30.0 100 10/31/20 07:31 130 136/89 10/31/20 07:09 97.1 20 I&O- Last 24 Hours up to 6 AM 10/31/20 06:00 Intake Total 100 ml Output Total 650 ml Balance -550 ml Laboratory Data 24H LABS Laboratory Tests 2 10/31/20 05:06: Nucleated Red Blood Cells % (auto) 0.0, Anion Gap 8, Glomerular Filtration Rate > 60.0, Calcium Level 9.2 10/31/20 09:59: Blood Gas Bicarbonate Standard 31.4H, Arterial Blood pH 7.465H, Arterial Blood P artial Pressure CO2 46.3H, Arterial Blood Partial Pressure O2 65.3L, Arterial Blood Total CO2 34.0H, Arterial Blood HCO3 32.6H, Arterial Blood Base Excess 7.7H, Arterial Blood Oxygen Saturation 93.6L CBC/BMP Laboratory Tests 10/31/20 05:06 JACINDA THOMASON DO October 31, 2020 10:42
--- NOTE | 2020-10-31 11:53 | IPN ---
PULMONARY PROGRESS NOTE DATE: 10/30/2020 Request for revisit was due to hypoxia. SUBJECTIVE: Senia Kumari has been in the hospital for some time now after having severe COVID lung disease that developed shortly after presenting with an incarcerated hernia. Her admission was on September 01, 2020. She has had slow improvements over time. However, over the past week, had started to decline again, especially over the past few days and her oxygen requirements have increased. I was therefore asked to see her. Reportedly, she had been noncompliant with the use of her bilevel noninvasive therapy that had been prescribed for her at night because of the fact that she has decreased chest expansion, atelectasis and probable underlying obstructive sleep apnea. But not only that, she developed a right-sided pleuritic chests pain and I noticed that her white count had been increasing over the past couple of days, despite a stable level of steroid. She had a CT angiogram on 10/28/2020, which showed "development of new bullae in the right lower lobe." When viewing this, there is actually infiltrate there with atelectasis and it appears more of a necrotic lung rather than true bulla formation. It would rare for spontaneous bulla formation and more likely, secondary to necrotic pneumonia and correlates with her symptoms of right pleurisy. Therefore, I am suspecting a new pneumonia. Patient has been on Bactrim for pneumocystis pneumonia (PCP) prophylaxis. She continues to remain very hypoxic and has increased interstitial markings, likely interstitial lung disease from COVID. She remained on low dose steroids, Solu-Medrol at 15 mg every 12 hours. She is on high dose Lovenox because of the severity of her hypoxia and the concern for pulmonary hypertension. CT angiogram, at this point in time, ruled out pulmonary embolism, but it is not clear whether she had a pulmonary embolism in the beginning of her hospitalization. Heart rate increased, which I think correlates with worsening of her hypoxia. The patient herself states she is coughing more. She is having right-sided pleuritic chest pain. She has anxiety and that is why she states she is not using the bilevel. I explained the necessity of using the bilevel and she is willing to continue to use it based on our recommendations. She remains FULL CODE, despite the fact that I do not think she will likely survive a second intubation. PHYSICAL EXAMINATION: Temperature 97.1, pulse 130, which is increased, respiratory rate 20, blood pressure 136/98, oxygen saturation 95% on 30 liters at 100% FiO2, is 91% while on bilevel noninvasive therapy. GENERAL: She does appear more awake then on prior visitations, when she was more ill. HEENT: Sclerae clear, anicteric. Pupils equal and reactive to light. Voice is still hoarse. Neck is supple. No tracheal deviation or mass. LYMPHATICS: No cervical, supraclavicular or axillary adenopathy. CARDIAC: Distant S1, S2, tachycardic, without murmur, rub or gallop. Point of maximum impulse (PMI) difficult to palpate because of body habitus. LUNGS: Decreased breath sounds throughout both lung nuñez. I do not auscultate any rales, rhonchi or wheezes, but breath sounds are significantly decreased. There is poor air entry. There is no prolongation of the expiratory phase. ABDOMEN: Obese. Soft, nontender, nondistended. No hepatosplenomegaly. No mass or hernia. EXTREMITIES: No cyanosis or clubbing. There is minimal evidence of edema. Peripherally inserted central catheter (PICC) line is in place. LABORATORY EVAULATION: White count 14.1, yesterday it was 12.2, the day before was 10.9. Hemoglobin 13.2 with a platelet count of 227. Sodium 137, potassium 4.4, chloride 99, bicarbonate 30, anion gap 8, BUN 16, creatinine 0.22, glucose 138. Arterial blood gas this morning shows worsening hypoxia with a pH of 7.46, pCO2 of 46 and a pAO2 of 65. Chest x-ray was not performed today. The chest CT from 10/28/2020 shows increased interstitial markings, decreased lung expansion, atelectasis at the bases with infiltrate in the right lower lobe and associated necrotic lung. There is some fibrotic changes in the upper lobes. IMPRESSION: Pleurisy with probable pneumonia, right lower lobe with necrosis. Given the elevated white count, despite stable steroid therapy, worsening hypoxia, tachycardia, would introduce broad spectrum antibiotics. Will obtain sputum cultures, blood cultures, which were ordered. I believe this is most likely pneumonia. Will increase her Solu-Medrol because of the symptoms of pleurisy and the continued interstitial lung disease. She is at high risk for requiring reintubation, which I do not think she will survive. We had this discussion. She wants all things done, DOES NOT WANT TO BE DO NOT RESUSCITATE (DNR), even with her refusal to be compliant with bilevel noninvasive therapy. She is now willing to comply. I am hopeful that with treatment, we can avoid intubation; however, patient is at high risk of during this hospitalization anyway because of the severity of her COVID lung disease. KIMMY
[2020-10-31] MEDS: CEFEPIME HCL 2 GM in D5W MINI-BAG PLUS 50 ML IV SCH ×2 (11:57→20:20)
[2020-10-31] MEDS ORDERED: VANCOMYCIN HCL 1,000 MG, VIAL MATE ADAPTER 1 EACH in NS 250 ML IV ONE ×2 (13:00→14:00)
[2020-10-31] MEDS: hydrOXYzine 10 MG TAB PO PRN (14:35)
[2020-10-31] MEDS ORDERED: METOPROLOL 5 MG/5 ML VIAL IV ONE (18:45)
[2020-10-31] MEDS ORDERED: NORCO, ANEXSIA 5/325MG TABLET (HYDROcodone/ACETAMINOPHEN) PO ONE (19:00)
[2020-10-31] MEDS: VANCOMYCIN HCL 1,000 MG, VIAL MATE ADAPTER 1 EACH in NS 250 ML IV SCH (20:21)
[2020-10-31] MEDS: SERTRALINE HCL 25 MG TABLET PO SCH (21:00)
[2020-10-31] MEDS: **NOTE PATIENT COMMENT** MISC XX SCH (21:00)
[2020-11-01] VITALS (10 sets, daily range): BP systolic 117–127; BP diastolic 68–85; O2SAT 91–97
[2020-11-01] MEDS: CEFEPIME HCL 2 GM in D5W MINI-BAG PLUS 50 ML IV SCH ×3 (04:06→20:58)
[2020-11-01] MEDS: VANCOMYCIN HCL 1,000 MG, VIAL MATE ADAPTER 1 EACH in NS 250 ML IV SCH ×3 (04:06→20:58)
[2020-11-01] MEDS: ALPRAZolam 0.5 MG TAB PO SCH ×4 (06:00→17:26)
[2020-11-01] MEDS: SODIUM CHLORIDE 0.9% INJ 10 ML SYR IV SCH ×2 (06:07→17:27)
[2020-11-01 06:19] LABS: HEMATOCRIT 39.5 % (36.0-47.0); HEMOGLOBIN 12.6 g/dl (12.0-15.5); MEAN CORPUSCULAR HEMOGLOBIN 31.3 pg (27.0-33.0); MEAN CORPUSCULAR HGB CONC 31.9 g/dl (32.0-36.5); PLATELET COUNT, AUTOMATED 215 10^3/uL (150-450); RED BLOOD COUNT 4.03 10^6/uL (4.00-5.40); WHITE BLOOD COUNT 12.7 10^3/uL (4.0-10.0)
[2020-11-01 07:14] LABS: BLOOD UREA NITROGEN 23 MG/DL (7-18); CALCIUM LEVEL 9.4 MG/DL (8.5-10.1); CARBON DIOXIDE LEVEL 29 MEQ/L (21-32); CHLORIDE LEVEL 101 MEQ/L (98-107); CREATININE FOR GFR 0.21 MG/DL (0.55-1.30); GLOMERULAR FILTRATION RATE > 60.0 (>51); GLUCOSE, FASTING 151 MG/DL (70-100); POTASSIUM SERUM 5.1 MEQ/L (3.5-5.1); SODIUM LEVEL 137 MEQ/L (136-145)
[2020-11-01] MEDS: IPRATROPIUM 0.5MG/ALBUTEROL 2.5MG INH SOL UD 3ML (DUONEB) NEB SCH ×4 (07:20→20:26)
[2020-11-01] MEDS: SODIUM CHLORIDE 0.9% INJ 10 ML SYR IV PRN ×2 (07:48→12:31)
[2020-11-01] MEDS: ENOXAPARIN 100MG/1ML SYRINGE (J1650 PER 10MG) SC SCH ×2 (08:25→21:01)
[2020-11-01] MEDS: LIDOCAINE 5% (LIDODERM) PATCH TD SCH (08:25)
[2020-11-01] MEDS: methylPREDNISolone 40MG 1ML VIAL IV SCH ×2 (08:25→20:58)
[2020-11-01] MEDS: BACTRIM 160MG/800MG DS TAB PO SCH (08:26)
[2020-11-01] MEDS: ANALGESIC BALM CRM 3OZ TOP SCH ×4 (08:26→21:01)
[2020-11-01] MEDS: METOPROLOL TART 25 MG TABLET PO SCH ×2 (08:27→20:59)
[2020-11-01] MEDS: PANTOPRAZOLE 40MG TAB (PROTONIX) PO SCH ×2 (08:27→20:59)
[2020-11-01] MEDS: guaiFENesin ER 600 MG TAB PO SCH ×2 (08:27→20:59)
[2020-11-01] MEDS: DOCUSATE SODIUM 100MG CAPSULE PO SCH ×2 (08:27→20:59)
--- NOTE | 2020-11-01 10:18 | IPNPDOC ---
Subjective Date Seen The patient was seen on 11/01/20. Subjective Chief Complaint/HPI Mrs. Jordan is a 50 year old female who is here with acute hypoxemic respiratory failure 2/2 ARDS 2/2 COVID 19 and incarcerated incisional hernia. Yesterday, pulmonary had evaluated patient and was diagnosed with right lower lobe pneumonia with necrosis. Patient was started on antibiotics. Otherwise, yesterday, we encouraged her to use her BIPAP. She worked hard to use the BIPAP through most of the day. She did well overnight and oxygen requirements improved. She was able to sleep. This morning, she feels better. I encouraged her to use more of the BIPAP today. Objective Physical Examination General Exam: Positive: Alert, Cooperative Eye Exam: Negative: Sclera icteric ENT Exam: Positive: Atraumatic Chest Exam: Positive: Clear to auscultation Heart Exam: Positive: Rate Normal Abdomen Exam: Positive: Normal bowel sounds, Soft, Tenderness Extremity Exam: Positive: Other (left upper extremity soft tissue hematoma is unchanged in size.); Negative: Tenderness Neuro Exam: Positive: Normal Speech Psych Exam: Positive: Anxiety Assessment /Plan Assessment Mrs. Jordan is a 50 year old female who is here with acute hypoxemic respiratory failure 2/2 ARDS 2/2 COVID 19 and incarcerated incisional hernia. She has been hospitalized over a month and will require rehab. When here oxygen requirements are lower, she can be placed to rehab. Continues with Solumedrol 15mg q12h and Lovenox for IPAH. Encourage use of IS. Patient will need to use the BIPAP as much as possible to improve her aeration. Patient has been on steroids for more than a month. Patient will be started on PCP prophylaxis. Patient have been have right sided pain. CT angio chest was negative for PE. Dr. Chan looked at this CT. Combined with the patient's pain, patient most likely has right lower lobe pneumonia with necrosis. Patient started on IV antibiotics. Plan/VTE VTE Prophylaxis Ordered?: Yes Plan 1. Acute hypoxemic respiratory failure 2/2 ARDS 2/2 COVID-19 -Acute COVID-19 has resolved. Patient has completed treatment with tocilizumab, remdesivir, and decadron. -Patients hypoxia is multifactorial. 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 She is on solumedrol 15 mg IV q12. PCP prophylaxis with Bactrim 1DS qD -Pulmonary medicine has been consulted and is following intermittently. -She is continued on full dose Lovenox for possible PE. She had not received a CTA initially given the severity of her hypoxia. She has shown improvement. She does still desaturate with movement although not as significantly. Could consider performing CTA as she may be able to tolerate. This would help guide the duration of her anticoagulation therapy. Although she likely has pulmonary hypertension given her severe hypoxia and therefore would benefit from anticoagulation regardless -Will defer duration of anticoagulation to Pulmonary medicine in regards to whether she will need life long -Patient will need to use BIPAP as much as possible to help expand lungs. 2. Acute hypoxemic respiratory failure 2/2 hospital acquired pneumonia with necrosis -Dr. Chan looked at the CT image, the bullae may be necrosis. Patient also had pleuritic chest pain supporting the idea of necrotic pneumonia -Patient started on Vancomycin and Cefepime day 1 3. Morbilliform Rash -thought to be 2/2 bactrim, improved after DC. 4. Sinus Tachycardia -Patient continues to be in sinus tachycardia. Likely secondary to hypoxia. Echocardiogram has resulted without any significant findings. Her tachycardia is resolving. Her HR is currently 100-110 improved from 130 -Continue Lopressor 50mg BID and Cardizem 60mg q6hr 5. Transient Atrial fibrillation -Patient has remained in sinus. Was noted to have an episode of atrial fibrillation earlier in her hospitalization likely driven by hypoxia 6. Hematuria -Has resolved. Patient is on full dose anticoagulation. Will continue to monitor 7. JAQUELINE -Patient is currently on Bilevel 8. Incarcerated Incisional Hernia -s/p surgical correction on 09/02/2020 -Healing well. No acute complications 9. Physical Deconditioning/Debility -Patient has an extended hospital stay of over 1 month with critical illness. She is severely debilitated. She is working with physical therapy. She will need [facility] rehab pending clinical improvement. 10 Constipation -Bowel regimen ordered 11. GI prophylaxis -Protonix 12. DVT prophylaxis -Lovenox DISPOSITION: Pending improvement in oxygen requirements. VS, I&O, 24H, Fishbone Vital Signs/I&O Vital Signs Date Time Temp Pulse Resp B/P (MAP) Pulse Ox O2 Delivery O2 Flow Rate FiO2 11/01/20 09:00 91 Nasal Cannula 25.0 85 11/01/20 08:27 97 117/77 11/01/20 07:43 97.5 24 I&O- Last 24 Hours up to 6 AM 11/01/20 06:00 Intake Total 630 ml Output Total 2200 ml Balance -1570 ml Laboratory Data 24H LABS Laboratory Tests 2 10/31/20 12:11: Methicillin-Resist S.aureus DNA PCR NOT DETECTED 11/01/20 05:59: Nucleated Red Blood Cells % (auto) 0.0, Anion Gap 7L, Glomerular Filtration Rate > 60.0, Calcium Level 9.4 CBC/BMP Laboratory Tests 11/01/20 05:59 Microbiology Microbiology 10/31/20 Blood Culture, Received Pending 10/31/20 Blood Culture, Received Pending JACINDA THOMASON DO November 01, 2020 10:17
[2020-11-01 15:33] LABS: BLOOD UREA NITROGEN 26 MG/DL (7-18); CALCIUM LEVEL 9.8 MG/DL (8.5-10.1); CARBON DIOXIDE LEVEL 28 MEQ/L (21-32); CHLORIDE LEVEL 102 MEQ/L (98-107); CREATININE FOR GFR 0.42 MG/DL (0.55-1.30); GLOMERULAR FILTRATION RATE > 60.0 (>51); GLUCOSE, FASTING 290 MG/DL (70-100); SODIUM LEVEL 138 MEQ/L (136-145)
[2020-11-01] MEDS: SERTRALINE HCL 25 MG TABLET PO SCH (20:59)
[2020-11-01] MEDS: **NOTE PATIENT COMMENT** MISC XX SCH (21:00)
[2020-11-02] VITALS (17 sets, daily range): BP systolic 110–125; BP diastolic 61–78; O2SAT 86–93
[2020-11-02] MEDS: ALPRAZolam 0.5 MG TAB PO SCH ×4 (00:11→17:17)
[2020-11-02] MEDS: CEFEPIME HCL 2 GM in D5W MINI-BAG PLUS 50 ML IV SCH ×3 (04:05→19:51)
[2020-11-02] MEDS: VANCOMYCIN HCL 1,000 MG, VIAL MATE ADAPTER 1 EACH in NS 250 ML IV SCH ×3 (04:05→20:24)
[2020-11-02 05:47] LABS: HEMATOCRIT 38.1 % (36.0-47.0); HEMOGLOBIN 11.9 g/dl (12.0-15.5); MEAN CORPUSCULAR HEMOGLOBIN 30.7 pg (27.0-33.0); MEAN CORPUSCULAR HGB CONC 31.2 g/dl (32.0-36.5); MEAN CORPUSCULAR VOLUME 98.2 fl (80.0-96.0); PLATELET COUNT, AUTOMATED 223 10^3/uL (150-450); RED BLOOD COUNT 3.88 10^6/uL (4.00-5.40); WHITE BLOOD COUNT 10.2 10^3/uL (4.0-10.0)
[2020-11-02] MEDS: SODIUM CHLORIDE 0.9% INJ 10 ML SYR IV SCH ×2 (05:52→17:20)
[2020-11-02 06:10] LABS: BLOOD UREA NITROGEN 22 MG/DL (7-18); CALCIUM LEVEL 9.3 MG/DL (8.5-10.1); CARBON DIOXIDE LEVEL 28 MEQ/L (21-32); CHLORIDE LEVEL 103 MEQ/L (98-107); CREATININE FOR GFR 0.29 MG/DL (0.55-1.30); GLOMERULAR FILTRATION RATE > 60.0 (>51); GLUCOSE, FASTING 176 MG/DL (70-100); POTASSIUM SERUM 4.3 MEQ/L (3.5-5.1); SODIUM LEVEL 139 MEQ/L (136-145)
[2020-11-02 06:53] LABS: MAGNESIUM LEVEL 1.9 MG/DL (1.8-2.4)
[2020-11-02] MEDS: IPRATROPIUM 0.5MG/ALBUTEROL 2.5MG INH SOL UD 3ML (DUONEB) NEB SCH ×4 (06:57→19:51)
[2020-11-02] MEDS: methylPREDNISolone 40MG 1ML VIAL IV SCH ×2 (08:44→20:22)
[2020-11-02] MEDS: LIDOCAINE 5% (LIDODERM) PATCH TD SCH (08:44)
[2020-11-02] MEDS: hydrOXYzine 10 MG TAB PO PRN ×2 (08:45→20:44)
[2020-11-02] MEDS: DOCUSATE SODIUM 100MG CAPSULE PO SCH ×2 (08:45→20:23)
[2020-11-02] MEDS: BACTRIM 160MG/800MG DS TAB PO SCH (08:45)
[2020-11-02] MEDS: ENOXAPARIN 100MG/1ML SYRINGE (J1650 PER 10MG) SC SCH ×2 (08:45→20:22)
[2020-11-02] MEDS: guaiFENesin ER 600 MG TAB PO SCH ×2 (08:45→20:22)
[2020-11-02] MEDS: PANTOPRAZOLE 40MG TAB (PROTONIX) PO SCH ×2 (08:45→20:24)
[2020-11-02] MEDS: METOPROLOL TART 25 MG TABLET PO SCH ×2 (08:45→20:23)
[2020-11-02] MEDS: ANALGESIC BALM CRM 3OZ TOP SCH ×4 (08:46→20:24)
--- NOTE | 2020-11-02 09:47 | IPNPDOC ---
Subjective Date Seen The patient was seen on 11/02/20. Subjective Chief Complaint/HPI Mrs. Jordan is a 50 year old female who is here with acute hypoxemic respiratory failure 2/2 ARDS 2/2 COVID 19, necrotizing pneumonia, and incar cerated incisional hernia. This morning, she complains of right sided pleuritic pain which is most likely from her necrotizing pneumonia. Her oxygen requirements are slowly improving. she has been trying to wear the BIPAP more frequently, but she becomes tachypneic and tachycardic with BIPAP. Will continue encouraging her to use BIPAP during the daytime and off at night so she can sleep. Objective Physical Examination General Exam: Positive: Alert, Cooperative Eye Exam: Negative: Sclera icteric ENT Exam: Positive: Atraumatic Chest Exam: Positive: Clear to auscultation Heart Exam: Positive: Rate Normal Abdomen Exam: Positive: Normal bowel sounds, Soft, Tenderness (right side) Extremity Exam: Positive: Other Neuro Exam: Positive: Normal Speech Psych Exam: Positive: Anxiety Assessment /Plan Assessment Mrs. Jordan is a 50 year old female who is here with acute hypoxemic respiratory failure 2/2 ARDS 2/2 COVID 19 and incarcerated incisional hernia. She has been hospitalized over a month and will require rehab. When here oxygen requirements are lower, she can be placed to rehab. Continues with Solumedrol 15mg q12h and Lovenox for IPAH. Encourage use of IS. Patient will need to use the BIPAP as much as possible to improve her aeration. Patient has been on steroids for more than a month. Patient will be started on PCP prophylaxis. Patient have been have right sided pain. CT angio chest was negative for PE. Dr. Chan looked at this CT. Combined with the patient's pain, patient most likely has right lower lobe pneumonia with necrosis. Patient started on IV antibiotics. Plan/VTE VTE Prophylaxis Ordered?: Yes Plan 1. Acute hypoxemic respiratory failure 2/2 ARDS 2/2 COVID-19 -Acute COVID-19 has resolved. Patient has completed treatment with tocilizumab, remdesivir, and decadron. -Patients hypoxia is multifactorial. 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 She is on solumedrol 15 mg IV q12. PCP prophylaxis with Bactrim 1DS qD -Pulmonary medicine has been consulted and is following intermittently. -She is continued on full dose Lovenox for possible PE. She had not received a CTA initially given the severity of her hypoxia. She has shown improvement. She does still desaturate with movement although not as significantly. Could consider performing CTA as she may be able to tolerate. This would help guide the duration of her anticoagulation therapy. Although she likely has pulmonary hypertension given her severe hypoxia and therefore would benefit from anticoagulation regardless -Will defer duration of anticoagulation to Pulmonary medicine in regards to whether she will need life long -Patient will need to use BIPAP as much as possible to help expand lungs. 2. Acute hypoxemic respiratory failure 2/2 hospital acquired pneumonia with necrosis -Dr. Chan looked at the CT image, the bullae may be necrosis. Patient also had pleuritic chest pain supporting the idea of necrotic pneumonia -Patient started on Vancomycin and Cefepime day 2 3. Morbilliform Rash -thought to be 2/2 bactrim, improved after DC. 4. Sinus Tachycardia -Patient continues to be in sinus tachycardia. Likely secondary to hypoxia. Echocardiogram has resulted without any significant findings. Her tachycardia is resolving. Her HR is currently 100-110 improved from 130 -Continue Lopressor 50mg BID and Cardizem 60mg q6hr 5. Transient Atrial fibrillation -Patient has remained in sinus. Was noted to have an episode of atrial fibrillation earlier in her hospitalization likely driven by hypoxia 6. Hematuria -Has resolved. Patient is on full dose anticoagulation. Will continue to monitor 7. JAQUELINE -Patient is currently on Bilevel 8. Incarcerated Incisional Hernia -s/p surgical correction on 09/02/2020 -Healing well. No acute complications 9. Physical Deconditioning/Debility -Patient has an extended hospital stay of over 1 month with critical illness. S he is severely debilitated. She is working with physical therapy. 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 10 Constipation -Bowel regimen ordered 11. GI prophylaxis -Protonix 12. DVT prophylaxis -Lovenox DISPOSITION: Pending improvement in oxygen requirements. Need to encourage use of BIPAP. VS, I&O, 24H, Fishbone Vital Signs/I&O Vital Signs Date Time Temp Pulse Resp B/P (MAP) Pulse Ox O2 Delivery O2 Flow Rate FiO2 11/02/20 08:00 97.1 97 28 124/77 (93) 92 HVNI-Vapotherm 22.0 85 I&O- Last 24 Hours up to 6 AM 11/02/20 06:00 Intake Total 1010 ml Output Total 1175 ml Balance -165 ml Laboratory Data 24H LABS Laboratory Tests 2 11/01/20 14:53: Anion Gap 8, Glomerular Filtration Rate > 60.0, Calcium Level 9.8 11/01/20 18:49: Vancomycin Level Trough 15.8 11/02/20 05:19: Anion Gap 8, Glomerular Filtration Rate > 60.0, Calcium Level 9.3, Magnesium Level 1.9 11/02/20 05:27: Nucleated Red Blood Cells % (auto) 0.0 CBC/BMP Laboratory Tests 11/01/20 14:53 11/02/20 05:19 11/02/20 05:27 Microbiology Microbiology 10/31/20 Blood Culture - Preliminary, Resulted No growth after 24 hours . All specim... 10/31/20 Blood Culture - Preliminary, Resulted No growth after 24 hours . All specim... JACINDA THOMASON DO Nov 02, 2020 09:47
[2020-11-02] MEDS: SERTRALINE HCL 25 MG TABLET PO SCH (20:22)
[2020-11-02] MEDS: **NOTE PATIENT COMMENT** MISC XX SCH (20:24)
[2020-11-03] VITALS (22 sets, daily range): BP systolic 126–139; BP diastolic 73–87; O2SAT 87–95
[2020-11-03] MEDS: CEFEPIME HCL 2 GM in D5W MINI-BAG PLUS 50 ML IV SCH ×3 (03:31→19:37)
[2020-11-03] MEDS: VANCOMYCIN HCL 1,000 MG, VIAL MATE ADAPTER 1 EACH in NS 250 ML IV SCH ×3 (04:15→21:35)
[2020-11-03 05:36] LABS: HEMATOCRIT 37.8 % (36.0-47.0); HEMOGLOBIN 11.9 g/dl (12.0-15.5); MEAN CORPUSCULAR HEMOGLOBIN 31.1 pg (27.0-33.0); MEAN CORPUSCULAR HGB CONC 31.5 g/dl (32.0-36.5); MEAN CORPUSCULAR VOLUME 98.7 fl (80.0-96.0); PLATELET COUNT, AUTOMATED 238 10^3/uL (150-450); RED BLOOD COUNT 3.83 10^6/uL (4.00-5.40); WHITE BLOOD COUNT 9.9 10^3/uL (4.0-10.0)
[2020-11-03 05:53] LABS: BLOOD UREA NITROGEN 14 MG/DL (7-18); CALCIUM LEVEL 8.7 MG/DL (8.5-10.1); CARBON DIOXIDE LEVEL 28 MEQ/L (21-32); CHLORIDE LEVEL 106 MEQ/L (98-107); CREATININE FOR GFR 0.22 MG/DL (0.55-1.30); GLOMERULAR FILTRATION RATE > 60.0 (>51); GLUCOSE, FASTING 187 MG/DL (70-100); POTASSIUM SERUM 4.4 MEQ/L (3.5-5.1); SODIUM LEVEL 140 MEQ/L (136-145)
[2020-11-03] MEDS: ALPRAZolam 0.5 MG TAB PO SCH ×5 (06:00→23:13)
[2020-11-03] MEDS: SODIUM CHLORIDE 0.9% INJ 10 ML SYR IV SCH ×2 (06:01→17:03)
[2020-11-03] MEDS: IPRATROPIUM 0.5MG/ALBUTEROL 2.5MG INH SOL UD 3ML (DUONEB) NEB SCH ×4 (07:51→19:59)
[2020-11-03] MEDS: guaiFENesin ER 600 MG TAB PO SCH ×2 (08:37→21:36)
[2020-11-03] MEDS: PANTOPRAZOLE 40MG TAB (PROTONIX) PO SCH ×2 (08:37→21:35)
[2020-11-03] MEDS: methylPREDNISolone 40MG 1ML VIAL IV SCH ×2 (08:37→21:35)
[2020-11-03] MEDS: ENOXAPARIN 100MG/1ML SYRINGE (J1650 PER 10MG) SC SCH ×2 (08:37→21:35)
[2020-11-03] MEDS: LIDOCAINE 5% (LIDODERM) PATCH TD SCH (08:38)
[2020-11-03] MEDS: METOPROLOL TART 25 MG TABLET PO SCH ×2 (08:38→21:36)
[2020-11-03] MEDS: DOCUSATE SODIUM 100MG CAPSULE PO SCH ×2 (08:38→21:00)
[2020-11-03] MEDS: BACTRIM 160MG/800MG DS TAB PO SCH (08:38)
[2020-11-03] MEDS: ANALGESIC BALM CRM 3OZ TOP SCH ×4 (08:39→21:37)
--- NOTE | 2020-11-03 09:02 | IPNPDOC ---
Subjective Date Seen The patient was seen on 11/03/20. Subjective Chief Complaint/HPI Mrs. Jordan is a 50 year old female who is here with acute hypoxemic respiratory failure 2/2 ARDS 2/2 COVID 19, necrotizing pneumonia, and incar cerated incisional hernia. This morning, she was seen sitting in the chair. She still has the right sided pain, but otherwise feeling better. Objective Physical Examination General Exam: Positive: Alert, Cooperative Eye Exam: Negative: Sclera icteric ENT Exam: Positive: Atraumatic Chest Exam: Positive: Clear to auscultation Heart Exam: Positive: Rate Normal Abdomen Exam: Positive: Normal bowel sounds, Soft, Tenderness (right side) Extremity Exam: Positive: Other Neuro Exam: Positive: Normal Speech Psych Exam: Positive: Anxiety Assessment /Plan Assessment Mrs. Jordan is a 50 year old female who is here with acute hypoxemic respiratory failure 2/2 ARDS 2/2 COVID 19 and incarcerated incisional hernia. She has been hospitalized over a month and will require rehab. When here oxygen requirements are lower, she can be placed to rehab. Continues with Solumedrol 15mg q12h and Lovenox for IPAH. Encourage use of IS. Patient will need to use the BIPAP as much as possible to improve her aeration. Patient has been on steroids for more than a month. Patient will be started on PCP prophylaxis. Patient have been have right sided pain. CT angio chest was negative for PE. Dr. Chan looked at this CT. Combined with the patient's pain, patient most likely has right lower lobe pneumonia with necrosis. Patient on IV cefepime and vancomycin. Plan/VTE VTE Prophylaxis Ordered?: Yes Plan 1. Acute hypoxemic respiratory failure 2/2 ARDS 2/2 COVID-19 -Acute COVID-19 has resolved. Patient has completed treatment with tocilizumab, remdesivir, and decadron. -Patients hypoxia is multifactorial. 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 She is on solumedrol 15 mg IV q12. PCP prophylaxis with Bactrim 1DS qD -Pulmonary medicine has been consulted and is following intermittently. -She is continued on full dose Lovenox for possible PE. She had not received a CTA initially given the severity of her hypoxia. She has shown improvement. She does still desaturate with movement although not as significantly. Could consider performing CTA as she may be able to tolerate. This would help guide the duration of her anticoagulation therapy. Although she likely has pulmonary hypertension given her severe hypoxia and therefore would benefit from anticoagulation regardless -Will defer duration of anticoagulation to Pulmonary medicine in regards to whether she will need life long -Patient will need to use BIPAP as much as possible to help expand lungs. 2. Acute hypoxemic respiratory failure 2/2 hospital acquired pneumonia with necrosis -Dr. Chan looked at the CT image, the bullae may be necrosis. Patient also had pleuritic chest pain supporting the idea of necrotic pneumonia -Patient started on Vancomycin and Cefepime day 3 3. Morbilliform Rash -thought to be 2/2 bactrim, improved after DC. 4. Sinus Tachycardia -Patient continues to be in sinus tachycardia. Likely secondary to hypoxia. Echocardiogram has resulted without any significant findings. Her tachycardia is resolving. Her HR is currently 100-110 improved from 130 -Continue Lopressor 50mg BID and Cardizem 60mg q6hr 5. Transient Atrial fibrillation -Patient has remained in sinus. Was noted to have an episode of atrial fibrillation earlier in her hospitalization likely driven by hypoxia 6. Hematuria -Has resolved. Patient is on full dose anticoagulation. Will continue to monitor 7. JAQUELINE -Patient is currently on Bilevel 8. Incarcerated Incisional Hernia -s/p surgical correction on 09/02/2020 -Healing well. No acute complications 9. Physical Deconditioning/Debility -Patient has an extended hospital stay of over 1 month with critical illness. She is severely debilitated. She is working with physical therapy. 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 10 Constipation -Bowel regimen ordered 11. GI prophylaxis -Protonix 12. DVT prophylaxis -Lovenox DISPOSITION: Pending improvement in oxygen requirements. Continue to encourage use of BIPAP. VS, I&O, 24H, Fishbone Vital Signs/I&O Vital Signs Date Time Temp Pulse Resp B/P (MAP) Pulse Ox O2 Delivery O2 Flow Rate FiO2 11/03/20 08:38 113 131/73 11/03/20 07:15 97.3 20 92 HVNI-Vapotherm 11/03/20 04:00 25.0 85 I&O- Last 24 Hours up to 6 AM 11/03/20 06:00 Intake Total 1260 ml Output Total 1075 ml Balance 185 ml Laboratory Data 24H LABS Laboratory Tests 2 11/02/20 19:04: Vancomycin Level Trough 12.5 11/03/20 05:16: Nucleated Red Blood Cells % (auto) 0.0, Anion Gap 6L, Glomerular Filtration Rate > 60.0, Calcium Level 8.7 CBC/BMP Laboratory Tests 11/03/20 05:16 Microbiology Microbiology 10/31/20 Blood Culture - Preliminary, Resulted No Growth after 48 hours. All Specime... 10/31/20 Blood Culture - Preliminary, Resulted No Growth after 48 hours. All Specime... JACINDA THOMASON DO Nov 03, 2020 09:02
[2020-11-03] MEDS: SERTRALINE HCL 25 MG TABLET PO SCH (21:35)
[2020-11-03] MEDS: hydrOXYzine 10 MG TAB PO PRN (21:36)
[2020-11-03] MEDS: **NOTE PATIENT COMMENT** MISC XX SCH (21:37)
[2020-11-04] VITALS (8 sets, daily range): BP systolic 114–133; BP diastolic 63–77; O2SAT 92
[2020-11-04] MEDS: CEFEPIME HCL 2 GM in D5W MINI-BAG PLUS 50 ML IV SCH ×3 (03:01→22:38)
[2020-11-04] MEDS: VANCOMYCIN HCL 1,000 MG, VIAL MATE ADAPTER 1 EACH in NS 250 ML IV SCH ×3 (04:12→22:37)
[2020-11-04 05:19] LABS: HEMATOCRIT 39.1 % (36.0-47.0); HEMOGLOBIN 11.9 g/dl (12.0-15.5); MEAN CORPUSCULAR HEMOGLOBIN 30.1 pg (27.0-33.0); MEAN CORPUSCULAR HGB CONC 30.4 g/dl (32.0-36.5); MEAN CORPUSCULAR VOLUME 98.7 fl (80.0-96.0); PLATELET COUNT, AUTOMATED 265 10^3/uL (150-450); RED BLOOD COUNT 3.96 10^6/uL (4.00-5.40); WHITE BLOOD COUNT 9.9 10^3/uL (4.0-10.0)
[2020-11-04 05:37] LABS: BLOOD UREA NITROGEN 18 MG/DL (7-18); CALCIUM LEVEL 8.8 MG/DL (8.5-10.1); CARBON DIOXIDE LEVEL 28 MEQ/L (21-32); CHLORIDE LEVEL 107 MEQ/L (98-107); CREATININE FOR GFR 0.29 MG/DL (0.55-1.30); GLOMERULAR FILTRATION RATE > 60.0 (>51); GLUCOSE, FASTING 222 MG/DL (70-100); POTASSIUM SERUM 4.2 MEQ/L (3.5-5.1); SODIUM LEVEL 140 MEQ/L (136-145)
[2020-11-04] MEDS: ALPRAZolam 0.5 MG TAB PO SCH ×3 (05:37→18:31)
[2020-11-04] MEDS: SODIUM CHLORIDE 0.9% INJ 10 ML SYR IV SCH ×2 (05:38→18:31)
[2020-11-04] MEDS: IPRATROPIUM 0.5MG/ALBUTEROL 2.5MG INH SOL UD 3ML (DUONEB) NEB SCH ×4 (07:31→19:52)
[2020-11-04] MEDS: DOCUSATE SODIUM 100MG CAPSULE PO SCH ×2 (09:00→21:03)
[2020-11-04] MEDS: methylPREDNISolone 40MG 1ML VIAL IV SCH ×2 (09:27→21:09)
[2020-11-04] MEDS: BACTRIM 160MG/800MG DS TAB PO SCH (09:27)
[2020-11-04] MEDS: ENOXAPARIN 100MG/1ML SYRINGE (J1650 PER 10MG) SC SCH ×2 (09:27→21:09)
[2020-11-04] MEDS: guaiFENesin ER 600 MG TAB PO SCH ×2 (09:28→21:03)
[2020-11-04] MEDS: PANTOPRAZOLE 40MG TAB (PROTONIX) PO SCH ×2 (09:31→21:08)
[2020-11-04] MEDS: METOPROLOL TART 25 MG TABLET PO SCH ×2 (09:31→21:00)
[2020-11-04] MEDS: LIDOCAINE 5% (LIDODERM) PATCH TD SCH (09:32)
[2020-11-04] MEDS: ANALGESIC BALM CRM 3OZ TOP SCH ×4 (09:32→21:10)
--- NOTE | 2020-11-04 13:09 | IPNPDOC ---
Subjective Date Seen The patient was seen on 11/04/20. Subjective Chief Complaint/HPI Mrs. Jordan is a 50 year old female who is here with acute hypoxemic respiratory failure 2/2 ARDS 2/2 COVID 19, necrotizing pneumonia, and incar cerated incisional hernia. She was seen this morning. The pain on the right side is improving, but she need to improve compliance with the BIPAP as her oxygen requirements are increasing again. Objective Physical Examination General Exam: Positive: Alert, Cooperative Eye Exam: Negative: Sclera icteric ENT Exam: Positive: Atraumatic Chest Exam: Positive: Clear to auscultation Heart Exam: Positive: Rate Normal Abdomen Exam: Positive: Normal bowel sounds, Soft, Tenderness (right side) Extremity Exam: Positive: Other Neuro Exam: Positive: Normal Speech Psych Exam: Positive: Anxiety Assessment /Plan Assessment Mrs. Jordan is a 50 year old female who is here with acute hypoxemic respiratory failure 2/2 ARDS 2/2 COVID 19 and incarcerated incisional hernia. She has been hospitalized over a month and will require rehab. When here oxygen requirements are lower, she can be placed to rehab. Continues with Solumedrol 15mg q12h and Lovenox for IPAH. Encourage use of IS. Patient will need to use the BIPAP as much as possible to improve her aeration. Patient has been on steroids for more than a month. Patient will be started on PCP prophylaxis. Patient have been have right sided pain. CT angio chest was negative for PE. Dr. Chan looked at this CT. Combined with the patient's pain, patient most likely has right lower lobe pneumonia with necrosis. Patient on IV cefepime and vancomycin. Plan/VTE VTE Prophylaxis Ordered?: Yes Plan 1. Acute hypoxemic respiratory failure 2/2 ARDS 2/2 COVID-19 -Acute COVID-19 has resolved. Patient has completed treatment with tocilizumab, remdesivir, and decadron. -Patients hypoxia is multifactorial. 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 She is on solumedrol 15 mg IV q12. PCP prophylaxis with Bactrim 1DS qD -Pulmonary medicine has been consulted and is following intermittently. -She is continued on full dose Lovenox for possible PE. She had not received a CTA initially given the severity of her hypoxia. She has shown improvement. She does still desaturate with movement although not as significantly. Could consider performing CTA as she may be able to tolerate. This would help guide the duration of her anticoagulation therapy. Although she likely has pulmonary hypertension given her severe hypoxia and therefore would benefit from anticoagulation regardless -Will defer duration of anticoagulation to Pulmonary medicine in regards to whether she will need life long -Patient will need to use BIPAP as much as possible to help expand lungs. 2. Acute hypoxemic respiratory failure 2/2 hospital acquired pneumonia with necrosis -Dr. Chan looked at the CT image, the bullae may be necrosis. Patient also had pleuritic chest pain supporting the idea of necrotic pneumonia -Patient started on Vancomycin and Cefepime day 4 3. Morbilliform Rash -thought to be 2/2 bactrim, improved after DC. 4. Sinus Tachycardia -Patient continues to be in sinus tachycardia. Likely secondary to hypoxia. Echocardiogram has resulted without any significant findings. Her tachycardia is resolving. Her HR is currently 100-110 improved from 130 -Continue Lopressor 50mg BID and Cardizem 60mg q6hr 5. Transient Atrial fibrillation -Patient has remained in sinus. Was noted to have an episode of atrial fibrillation earlier in her hospitalization likely driven by hypoxia 6. Hematuria -Has resolved. Patient is on full dose anticoagulation. Will continue to monitor 7. JAQUELINE -Patient is currently on Bilevel 8. Incarcerated Incisional Hernia -s/p surgical correction on 09/02/2020 -Healing well. No acute complications 9. Physical Deconditioning/Debility -Patient has an extended hospital stay of over 1 month with critical illness. She is severely debilitated. She is working with physical therapy. She will need [facility] rehab pending clinical improvement. 10 Constipation -Bowel regimen ordered 11. GI prophylaxis -Protonix 12. DVT prophylaxis -Lovenox DISPOSITION: Pending improvement in oxygen requirements. Continue to encourage use of BIPAP. VS, I&O, 24H, Fishbone Vital Signs/I&O Vital Signs Date Time Temp Pulse Resp B/P (MAP) Pulse Ox O2 Delivery O2 Flow Rate FiO2 11/04/20 12:00 96.3 97 18 133/76 (95) 87 HVNI-Vapotherm 30.0 90 I&O- Last 24 Hours up to 6 AM 11/04/20 05:59 Intake Total 1800 ml Output Total 1800 ml Balance 0 ml Laboratory Data 24H LABS Laboratory Tests 2 11/04/20 04:45: Anion Gap 5L, Glomerular Filtration Rate > 60.0, Calcium Level 8.8 11/04/20 04:46: Nucleated Red Blood Cells % (auto) 0.4H CBC/BMP Laboratory Tests 11/04/20 04:45 11/04/20 04:46 Microbiology Microbiology 10/31/20 Blood Culture - Preliminary, Resulted No Growth after 72 hours. All specime... 10/31/20 Blood Culture - Preliminary, Resulted No Growth after 72 hours. All specime... JACINDA THOMASON DO Nov 04, 2020 13:09
[2020-11-04] MEDS: **NOTE PATIENT COMMENT** MISC XX SCH (21:00)
[2020-11-04] MEDS: SERTRALINE HCL 25 MG TABLET PO SCH (21:08)
--- NOTE | 2020-11-04 23:04 | REPVR ---
PROCEDURE INFORMATION: Exam: US Duplex Right Upper Extremity Veins, Limited Exam date and time: 11/04/2020 10:28 PM Age: 50 years old Clinical indication: Other: Induration of RT arm above picc; Additional info: Induration of right arm above picc TECHNIQUE: Imaging protocol: Real-time Duplex ultrasound of the Right Upper Extremity with 2-D webb scale, color Doppler flow and spectral waveform analysis with image documentation. Limited exam focused on the right upper extremity veins. COMPARISON: US DUPLEX EXT UPPER VEINS UNILATE 11/21/2014 10:30 PM FINDINGS: Right deep veins: Unremarkable. Axillary and brachial veins are patent throughout without thrombus. Normal Doppler waveforms. Normal compressibility and/or augmentation response. Visualized internal jugular and subclavian veins are patent. Right superficial veins: Unremarkable. Visualized cephalic and basilic veins are patent without thrombus. Soft tissues: Area of induration noted. A PICC line is in place. IMPRESSION: No evidence of deep vein thrombosis. Electronically signed by: Sva Mendez On 11/04/2020 23:03:15 PM
[2020-11-05] VITALS (43 sets, daily range): BP systolic 98–157; BP diastolic 54–81; O2SAT 81–96
[2020-11-05] MEDS: ALPRAZolam 0.5 MG TAB PO SCH ×4 (00:35→17:30)
[2020-11-05] MEDS: CEFEPIME HCL 2 GM in D5W MINI-BAG PLUS 50 ML IV SCH ×3 (05:05→21:26)
[2020-11-05] MEDS: VANCOMYCIN HCL 1,000 MG, VIAL MATE ADAPTER 1 EACH in NS 250 ML IV SCH ×3 (05:07→21:47)
[2020-11-05] MEDS: SODIUM CHLORIDE 0.9% INJ 10 ML SYR IV SCH ×2 (05:09→17:30)
[2020-11-05 05:25] LABS: HEMATOCRIT 38.9 % (36.0-47.0); HEMOGLOBIN 12.2 g/dl (12.0-15.5); MEAN CORPUSCULAR HEMOGLOBIN 30.7 pg (27.0-33.0); MEAN CORPUSCULAR HGB CONC 31.4 g/dl (32.0-36.5); MEAN CORPUSCULAR VOLUME 97.7 fl (80.0-96.0); PLATELET COUNT, AUTOMATED 303 10^3/uL (150-450); RED BLOOD COUNT 3.98 10^6/uL (4.00-5.40)
[2020-11-05 05:45] LABS: BLOOD UREA NITROGEN 18 MG/DL (7-18); CALCIUM LEVEL 9.2 MG/DL (8.5-10.1); CARBON DIOXIDE LEVEL 29 MEQ/L (21-32); CHLORIDE LEVEL 105 MEQ/L (98-107); CREATININE FOR GFR 0.29 MG/DL (0.55-1.30); GLOMERULAR FILTRATION RATE > 60.0 (>51); GLUCOSE, FASTING 198 MG/DL (70-100); POTASSIUM SERUM 4.4 MEQ/L (3.5-5.1); SODIUM LEVEL 140 MEQ/L (136-145)
[2020-11-05] MEDS: IPRATROPIUM 0.5MG/ALBUTEROL 2.5MG INH SOL UD 3ML (DUONEB) NEB SCH ×4 (07:09→19:51)
[2020-11-05] MEDS: DOCUSATE SODIUM 100MG CAPSULE PO SCH ×2 (08:04→21:26)
[2020-11-05] MEDS: methylPREDNISolone 40MG 1ML VIAL IV SCH ×2 (08:04→21:47)
[2020-11-05] MEDS: ENOXAPARIN 100MG/1ML SYRINGE (J1650 PER 10MG) SC SCH ×2 (08:04→21:27)
[2020-11-05] MEDS: guaiFENesin ER 600 MG TAB PO SCH ×2 (08:04→21:24)
[2020-11-05] MEDS: PANTOPRAZOLE 40MG TAB (PROTONIX) PO SCH ×2 (08:05→21:24)
[2020-11-05] MEDS: METOPROLOL TART 25 MG TABLET PO SCH ×2 (08:05→21:25)
[2020-11-05] MEDS: ANALGESIC BALM CRM 3OZ TOP SCH ×4 (08:06→21:47)
[2020-11-05] MEDS: LIDOCAINE 5% (LIDODERM) PATCH TD SCH (08:06)
[2020-11-05] MEDS: BACTRIM 160MG/800MG DS TAB PO SCH (08:09)
--- NOTE | 2020-11-05 13:01 | IPNPDOC ---
Subjective Date Seen The patient was seen on 11/05/20. Subjective Chief Complaint/HPI Mrs. Jordan is a 50 year old female who is here with acute hypoxemic respiratory failure 2/2 ARDS 2/2 COVID 19, necrotizing pneumonia, and incar cerated incisional hernia. This morning, she feels that her breathing has improved. Her right side pain has also improved. I continued to encourage the use of NIPPV Objective Physical Examination General Exam: Positive: Alert, Cooperative Eye Exam: Negative: Sclera icteric ENT Exam: Positive: Atraumatic Chest Exam: Positive: Clear to auscultation Heart Exam: Positive: Rate Normal Abdomen Exam: Positive: Normal bowel sounds, Soft, Tenderness (right side) Extremity Exam: Positive: Other Neuro Exam: Positive: Normal Speech Psych Exam: Positive: Anxiety Assessment /Plan Assessment Mrs. Jordan is a 50 year old female who is here with acute hypoxemic respiratory failure 2/2 ARDS 2/2 COVID 19 and incarcerated incisional hernia. She has been hospitalized over a month and will require rehab. When here oxygen requirements are lower, she can be placed to rehab. Continues with Solumedrol 15mg q12h and Lovenox for IPAH. Encourage use of IS. Patient will need to use the BIPAP/CPAP as much as possible to improve her aeration. Patient has been on steroids for more than a month. Patient will be started on PCP prophylaxis. Patient have been have right sided pain. CT angio chest was negative for PE. Dr. Chan looked at this CT. Combined with the patient's pain, patient most likely has right lower lobe pneumonia with necrosis. Patient on IV cefepime and vancomycin. Plan/VTE VTE Prophylaxis Ordered?: Yes Plan 1. Acute hypoxemic respiratory failure 2/2 ARDS 2/2 COVID-19 -Acute COVID-19 has resolved. Patient has completed treatment with tocilizumab, remdesivir, and decadron. -Patients hypoxia is multifactorial. 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 She is on solumedrol 15 mg IV q12. PCP prophylaxis with Bactrim 1DS qD -Pulmonary medicine has been consulted and is following intermittently. -She is continued on full dose Lovenox for possible PE. She had not received a CTA initially given the severity of her hypoxia. She has shown improvement. She does still desaturate with movement although not as significantly. Could consider performing CTA as she may be able to tolerate. This would help guide the duration of her anticoagulation therapy. Although she likely has pulmonary hypertension given her severe hypoxia and therefore would benefit from anticoagulation regardless -Will defer duration of anticoagulation to Pulmonary medicine in regards to whether she will need life long -Patient will need to use BIPAP as much as possible to help expand lungs. 2. Acute hypoxemic respiratory failure 2/2 hospital acquired pneumonia with necrosis -Dr. Chan looked at the CT image, the bullae may be necrosis. Patient also had pleuritic chest pain supporting the idea of necrotic pneumonia -Patient started on Vancomycin and Cefepime day 5 3. Morbilliform Rash -thought to be 2/2 bactrim, improved after DC. 4. Sinus Tachycardia -Patient continues to be in sinus tachycardia. Likely secondary to hypoxia. Echocardiogram has resulted without any significant findings. Her tachycardia is resolving. Her HR is currently 100-110 improved from 130 -Continue Lopressor 50mg BID and Cardizem 60mg q6hr 5. Transient Atrial fibrillation -Patient has remained in sinus. Was noted to have an episode of atrial fibrillation earlier in her hospitalization likely driven by hypoxia 6. Hematuria -Has resolved. Patient is on full dose anticoagulation. Will continue to monitor 7. JAQUELINE -Patient is currently on Bilevel 8. Incarcerated Incisional Hernia -s/p surgical correction on 09/02/2020 -Healing well. No acute complications 9. Physical Deconditioning/Debility -Patient has an extended hospital stay of over 1 month with critical illness. She is severely debilitated. She is working with physical therapy. 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 10 Constipation -Bowel regimen ordered 11. GI prophylaxis -Protonix 12. DVT prophylaxis -Lovenox DISPOSITION: Pending improvement in oxygen requirements. Continue to encourage use of BIPAP/CPAP. VS, I&O, 24H, Fishbone Vital Signs/I&O Vital Signs Date Time Temp Pulse Resp B/P (MAP) Pulse Ox O2 Delivery O2 Flow Rate FiO2 11/05/20 11:46 96 134/74 11/05/20 10:00 96 Nasal Cannula 18.0 100 11/05/20 08:35 96.9 11/05/20 07:23 24 I&O- Last 24 Hours up to 6 AM 11/05/20 06:00 Intake Total 610 ml Output Total 500 ml Balance 110 ml Laboratory Data 24H LABS Laboratory Tests 2 11/05/20 04:58: Nucleated Red Blood Cells % (auto) 0.3H, Anion Gap 6L, Glomerular Filtration Rate > 60.0, Calcium Level 9.2 11/05/20 11:06: Vancomycin Level Trough 17.8 CBC/BMP Laboratory Tests 11/05/20 04:58 Microbiology Microbiology 10/31/20 Blood Culture - Final, Complete NO GROWTH AFTER 5 DAYS 10/31/20 Blood Culture - Final, Complete NO GROWTH AFTER 5 DAYS JACINDA THOMASON DO Nov 05, 2020 13:01
[2020-11-05] MEDS ORDERED: LIDOCAINE 1% MDV 20ML VIAL As Ordered ONE ×2 (14:50→22:47)
--- NOTE | 2020-11-05 16:41 | REP ---
INDICATION: Old PICC, one port not working. COMPARISON: None. TECHNIQUE: The procedure was performed under the direct supervision of Dr. Taylor. The risks and benefits of the procedure were explained to the patient and informed consent was obtained. The procedure was performed at the bedside. The patient has an existing 5.5 [place] [employer] dual lumen PICC line in the right basilic vein. The existing PICC line and surrounding area was prepped and draped in a sterile fashion. A 0.018 guidewire was inserted into the existing catheter. The catheter was removed and a 5.5 [place] [employer] dilator and peel-away sheath was inserted over the guidewire. A 5.5 [place] [employer] dual lumen catheter was cut to a length of 43 cm. The dilator was removed and the catheter was inserted over the guidewire. A portable chest x-ray was performed and the image demonstrates the tip of the catheter to be in the SVC. The peel-away sheath was removed and the catheter was flushed with heparinized saline as per hospital protocol. The catheter was affixed to the skin and a sterile dressing was applied. The patient tolerated the procedure well and there were no immediate complications. FINDINGS: None IMPRESSION: PICC line exchange right basilic vein with the tip ending in the SVC. <Electronically signed by Hiren Sabillon > 11/05/20 1623 <Electronically signed by Ruy Taylor > 11/05/20 1634
[2020-11-05] MEDS: HumaLOG INSULIN (NovoLOG) PER UNIT SC SCH (21:00)
[2020-11-05] MEDS ORDERED: MORPHINE 2 MG/ML 1ML VIAL (J2270) IV ONE ×2 (21:05→21:15)
[2020-11-05] MEDS: CALCIUM CARBONATE 500 MG CHEW U/D PO PRN (21:24)
[2020-11-05] MEDS: ACETAMINOPHEN TAB 650MG DOSE (2X325MG) PO PRN (21:25)
[2020-11-05] MEDS: hydrOXYzine 10 MG TAB PO PRN (21:26)
[2020-11-05] MEDS: SERTRALINE HCL 25 MG TABLET PO SCH (21:26)
[2020-11-05] MEDS: ONDANSETRON 4MG/2ML VIAL IV PRN (21:27)
[2020-11-05] MEDS: **NOTE PATIENT COMMENT** MISC XX SCH (21:48)
[2020-11-05 21:50] LABS: HEMATOCRIT 42.5 % (36.0-47.0); HEMOGLOBIN 13.3 g/dl (12.0-15.5); MEAN CORPUSCULAR HEMOGLOBIN 30.6 pg (27.0-33.0); MEAN CORPUSCULAR HGB CONC 31.3 g/dl (32.0-36.5); MEAN CORPUSCULAR VOLUME 97.7 fl (80.0-96.0); RED BLOOD COUNT 4.35 10^6/uL (4.00-5.40); WHITE BLOOD COUNT 17.1 10^3/uL (4.0-10.0)
[2020-11-05 21:56] LABS: PLATELET COUNT, AUTOMATED 430 10^3/uL (150-450)
[2020-11-05 22:14] LABS: BLOOD UREA NITROGEN 22 MG/DL (7-18); CALCIUM LEVEL 9.5 MG/DL (8.5-10.1); CARBON DIOXIDE LEVEL 31 MEQ/L (21-32); CHLORIDE LEVEL 103 MEQ/L (98-107); CREATININE FOR GFR 0.39 MG/DL (0.55-1.30); GLOMERULAR FILTRATION RATE > 60.0 (>51); GLUCOSE, FASTING 180 MG/DL (70-100); POTASSIUM SERUM 3.5 MEQ/L (3.5-5.1); SODIUM LEVEL 140 MEQ/L (136-145); TROPONIN I < 0.02 NG/ML (< 0.10)
--- NOTE | 2020-11-05 22:20 | REPVR ---
PROCEDURE INFORMATION: Exam: XR Chest Exam date and time: 11/05/2020 9:17 PM Age: 50 years old Clinical indication: Other: Respiratory distress TECHNIQUE: Imaging protocol: XR of the chest. Views: 1 view. COMPARISON: 1. [place] PORTABLE CHEST X-RAY 2020-10-16 09:35 2. [place] Chest, 1 view 2020-10-12 07:20 3. [place] PORTABLE CHEST X-RAY 2020-10-08 07:56 4. [place] Chest, 1 view 2020-09-15 22:52 FINDINGS: Tubes, catheters and devices: Patient rotated towards the left. Unchanged PICC line. Lungs: Increased lung infiltrates, although patient is significantly rotated towards the left. Pleural spaces: Moderate right-sided pneumothorax is new. Heart/Mediastinum: Unremarkable. No cardiomegaly. Bones/joints: Unchanged cervical fusion. IMPRESSION: 1. Increased lung infiltrates, although patient is significantly rotated towards the left. 2. Moderate right-sided pneumothorax is new. Electronically signed by: Dereje Lares On 11/05/2020 22:20:48 PM
[2020-11-05] MEDS ORDERED: MIDAZOLAM INJ 2MG/2ML VIAL (J2250 PER 1MG) As Ordered ONE (22:37)
[2020-11-05] MEDS ORDERED: flumazeniL 0.5 MG/5 ML VIAL As Ordered ONE (22:38)
[2020-11-05 22:53] LABS: ABG BASE EXCESS 2.8 (-2.0-2.0); ABG HCO3 29.9 MEQ/L (22.0-26.0); ABG O2 SATURATION 88.3 % (95.0-99.0); ABG PARTIAL PRESSURE CO2 56.4 mmHg (35.0-45.0); ABG PARTIAL PRESSURE O2 60.6 mmHg (75.0-100.0); ABG STANDARD HCO3 26.7 MEQ/L (22.0-26.0); ABG TOTAL CO2 31.6 MEQ/L (22.0-29.0); ABG pH (ARTERIAL) 7.342 UNITS (7.350-7.450)
--- NOTE | 2020-11-05 23:32 | ECGEPIP ---
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
[2020-11-06] VITALS (28 sets, daily range): BP systolic 93–126; BP diastolic 54–72
[2020-11-06] MEDS ORDERED: KETOROLAC 30 MG/ML 1ML VIAL IV ONE
--- NOTE | 2020-11-06 00:15 | REPVR ---
PROCEDURE INFORMATION: Exam: XR Chest Exam date and time: 11/06/2020 12:02 AM Age: 50 years old Clinical indication: Other: Tube placement TECHNIQUE: Imaging protocol: XR of the chest. Views: 1 view. COMPARISON: 1. [place] Chest, 1 view 2020-11-05 21:09 2. [place] PORTABLE CHEST X-RAY 2020-10-16 09:35 3. [place] Chest, 1 view 2020-10-12 07:20 4. [place] PORTABLE CHEST X-RAY 2020-10-08 07:56 FINDINGS: Tubes, catheters and devices: Unchanged PICC line. Interval placement of a right-sided chest tube with substantially decreased pneumothorax. Lungs: Diffuse lung infiltrates. Pleural spaces: Unremarkable. No pleural effusion. No pneumothorax. Heart/Mediastinum: Unremarkable. No cardiomegaly. Bones/joints: Cervical fusion. IMPRESSION: 1. Interval placement of a right-sided chest tube with substantially decreased pneumothorax. 2. Diffuse lung infiltrates. Electronically signed by: Dereje Lares On 11/06/2020 00:15:25 AM
[2020-11-06 00:31] LABS: HEMATOCRIT 40.9 % (36.0-47.0); HEMOGLOBIN 12.9 g/dl (12.0-15.5); MEAN CORPUSCULAR HEMOGLOBIN 31.2 pg (27.0-33.0); MEAN CORPUSCULAR HGB CONC 31.5 g/dl (32.0-36.5); MEAN CORPUSCULAR VOLUME 98.8 fl (80.0-96.0); PLATELET COUNT, AUTOMATED 346 10^3/uL (150-450); RED BLOOD COUNT 4.14 10^6/uL (4.00-5.40); WHITE BLOOD COUNT 15.2 10^3/uL (4.0-10.0)
[2020-11-06 00:39] LABS: ATYPICAL LYMPH 1 % (0-5); EOSINOPHILS 1 % (0-3)
[2020-11-06 00:40] LABS: ANISOCYTOSIS 1+; LYMPHOCYTES 3 % (16-44); MONOCYTES 5 % (0-5); MYELOCYTES 2 % (0-0); NEUTROPHILS 88 % (28-66); PLATELET ESTIMATE NORMAL (NORMAL)
[2020-11-06 00:50] LABS: BLOOD UREA NITROGEN 23 MG/DL (7-18); CALCIUM LEVEL 9.5 MG/DL (8.5-10.1); CARBON DIOXIDE LEVEL 31 MEQ/L (21-32); CHLORIDE LEVEL 101 MEQ/L (98-107); CREATININE FOR GFR 0.31 MG/DL (0.55-1.30); GLOMERULAR FILTRATION RATE > 60.0 (>51); GLUCOSE, FASTING 216 MG/DL (70-100); SODIUM LEVEL 138 MEQ/L (136-145)
[2020-11-06] MEDS ORDERED: MIDAZOLAM INJ 2MG/2ML VIAL (J2250 PER 1MG) IV ONE (01:05)
[2020-11-06] MEDS ORDERED: LIDOCAINE 1% MDV 20ML VIAL SC ONE (01:05)
[2020-11-06] MEDS ORDERED: GLUCAGON INJ 1MG VIAL SC PRN (01:30)
[2020-11-06] MEDS ORDERED: DEXTROSE 50% 50 ML SYRINGE IV PRN (01:30)
[2020-11-06] MEDS ORDERED: GLUCOSE 4GM CHEW TABLET PO PRN (01:30)
[2020-11-06] MEDS: LEVALBUTEROL 1.25 MG/0.5 ML CONCENTRATE NEB NEB SCH ×4 (01:58→19:24)
[2020-11-06] MEDS: CEFEPIME HCL 2 GM in D5W MINI-BAG PLUS 50 ML IV SCH ×3 (03:09→19:17)
[2020-11-06] MEDS: VANCOMYCIN HCL 1,000 MG, VIAL MATE ADAPTER 1 EACH in NS 250 ML IV SCH (03:55)
[2020-11-06 05:51] LABS: BASO # 0.1 10^3/uL (0.0-0.2); BASO % 0.7 % (0.0-1.0); HEMATOCRIT 38.8 % (36.0-47.0); HEMOGLOBIN 12.4 g/dl (12.0-15.5); LYMPH # 0.7 10^3/uL (1.5-5.0); MEAN CORPUSCULAR HEMOGLOBIN 31.7 pg (27.0-33.0); MEAN CORPUSCULAR VOLUME 99.2 fl (80.0-96.0); MONO # 0.5 10^3/uL (0.0-0.8); MONO % 3.4 % (2.0-8.0); NEUTROPHILS # 12.5 10^3/uL (1.5-8.5); NEUTROPHILS % 87.4 % (36.0-66.0); PLATELET COUNT, AUTOMATED 335 10^3/uL (150-450); RED BLOOD COUNT 3.91 10^6/uL (4.00-5.40); WHITE BLOOD COUNT 14.3 10^3/uL (4.0-10.0)
[2020-11-06 05:57] LABS: ABG BASE EXCESS 3.2 (-2.0-2.0); ABG HCO3 29.9 MEQ/L (22.0-26.0); ABG O2 SATURATION 91.3 % (95.0-99.0); ABG PARTIAL PRESSURE CO2 55.2 mmHg (35.0-45.0); ABG PARTIAL PRESSURE O2 66.5 mmHg (75.0-100.0); ABG STANDARD HCO3 27.1 MEQ/L (22.0-26.0); ABG TOTAL CO2 31.6 MEQ/L (22.0-29.0); ABG pH (ARTERIAL) 7.352 UNITS (7.350-7.450)
[2020-11-06] MEDS: ALPRAZolam 0.5 MG TAB PO SCH ×5 (06:00→23:55)
[2020-11-06] MEDS: SODIUM CHLORIDE 0.9% INJ 10 ML SYR IV SCH ×2 (06:00→18:20)
[2020-11-06] MEDS: NORCO, ANEXSIA 5/325MG TABLET (HYDROcodone/ACETAMINOPHEN) PO PRN ×2 (06:04→19:32)
[2020-11-06 06:23] LABS: BLOOD UREA NITROGEN 22 MG/DL (7-18); CARBON DIOXIDE LEVEL 31 MEQ/L (21-32); CHLORIDE LEVEL 104 MEQ/L (98-107); CREATININE FOR GFR 0.29 MG/DL (0.55-1.30); GLOMERULAR FILTRATION RATE > 60.0 (>51); GLUCOSE, FASTING 192 MG/DL (70-100); POTASSIUM SERUM 4.8 MEQ/L (3.5-5.1); SODIUM LEVEL 139 MEQ/L (136-145)
--- NOTE | 2020-11-06 06:32 | IPNPDOC ---
Text Note Date of Service The patient was seen on 11/06/20. NOTE Subjective I was asked to evaluate Mrs. Kumari by her nurse last evening due to severe right-sided chest pain. She is complaining of severe sudden onset right-sided chest pain. She tells me she felt this chest pain while trying to use the BiPAP machine, tells me the pain is new. Does not radiate. Tells me she feels very anxious. Currently she is not using the BiPAP machine she is on Vapotherm. Objective Patient was complaining a lot of right-sided chest pain she appeared anxious. She had good breath sounds in the left side with diminished breath sounds on the right. Heart rate was around 100 on the monitor she was not complaining of substernal chest pain She was tachypneic breathing at a rate between 30 and 35 After 2 mg of IV morphine she appeared a lot more comfortable her breathing had improved and she was not as tachypneic and she did not appear as anxious and she says her chest pain was feeling better Assessment/plan CBC, BMP, troponin, chest x-ray Chest x-ray reveals right-sided pneumothorax. Spoke with Dr. Coker who recommended again touch with Dr. Pena from cardiothoracic surgery given this [place] is large body habitus I discussed with Dr. Pena who arrived shortly after to place a chest tube, nurse tells me tube was successfully in place by around 1130pm Transfer to ICU VS,Luis, I+O VS, Luis, I+O Laboratory Tests 11/05/20 21:31 11/06/20 00:08 11/06/20 05:38 Vital Signs Date Time Temp Pulse Resp B/P (MAP) Pulse Ox O2 Delivery O2 Flow Rate FiO2 11/06/20 06:04 26 11/06/20 06:00 94 98/56 (70) 91 HVNI-Vapotherm 25.0 100 11/06/20 04:00 97.6 I&O- Last 24 Hours up to 6 AM 11/06/20 06:00 Intake Total 2430 ml Output Total 1275 ml Balance 1155 ml CAMILA HEDRICK MD Nov 06, 2020 06:32
[2020-11-06] MEDS: IPRATROPIUM 0.5MG/ALBUTEROL 2.5MG INH SOL UD 3ML (DUONEB) NEB SCH ×4 (07:22→19:25)
--- NOTE | 2020-11-06 07:48 | REP ---
INDICATION: pneumthx COMPARISON: 11/05/2020 TECHNIQUE: Portable AP view of the chest FINDINGS: Right chest tube is in satisfactory stable position. Right PICC line with tip in the SVC/right atrium stable. Diffuse bilateral infiltrates are again noted and similar to prior examination. No obvious effusion or obvious residual pneumothorax. IMPRESSION: 1. Chest tube in satisfactory position. No obvious residual pneumothorax. 2. Diffuse bilateral infiltrates similar to prior examination. <Electronically signed by Israel Holguin > 11/06/20 0723
[2020-11-06] MEDS: LIDOCAINE 5% (LIDODERM) PATCH TD SCH (08:20)
[2020-11-06] MEDS: HumaLOG INSULIN (NovoLOG) PER UNIT SC SCH ×4 (08:20→20:15)
[2020-11-06] MEDS: DOCUSATE SODIUM 100MG CAPSULE PO SCH ×2 (08:21→20:15)
[2020-11-06] MEDS: guaiFENesin ER 600 MG TAB PO SCH ×2 (08:21→20:17)
[2020-11-06] MEDS: PANTOPRAZOLE 40MG TAB (PROTONIX) PO SCH ×2 (08:21→20:16)
[2020-11-06] MEDS: METOPROLOL TART 25 MG TABLET PO SCH ×2 (08:21→20:17)
[2020-11-06] MEDS: ENOXAPARIN 100MG/1ML SYRINGE (J1650 PER 10MG) SC SCH ×2 (08:21→20:19)
[2020-11-06] MEDS: methylPREDNISolone 40MG 1ML VIAL IV SCH ×2 (08:21→20:18)
[2020-11-06] MEDS: BACTRIM 160MG/800MG DS TAB PO SCH (08:21)
[2020-11-06] MEDS: MOM 30ML SUSPENSION UDC PO SCH (08:22)
[2020-11-06] MEDS: ANALGESIC BALM CRM 3OZ TOP SCH ×4 (08:22→21:09)
--- NOTE | 2020-11-06 11:19 | RO ---
OPERATIVE NOTE DATE OF OPERATION: 11/05/2020 Patient is seen at the urgent request of Dr. John of the hospitalist service upon the recommendation of Dr. Coker of pulmonary service for a pneumothorax. When I arrived at the hospital she was very short of breath, although she could speak a few words. She eventually had been placed on bilevel positive airway pressure (BiPAP) and then became very short of breath with near respiratory failure. PREOPERATIVE DIAGNOSIS: Pneumothorax. POSTOPERATIVE DIAGNOSIS: Pneumothorax. PROCEDURE: Insertion of right anterior-superior chest tube. SURGEON: Dr. Ricardo Pena. DESCRIPTION OF PROCEDURE: Under satisfactory moderate sedation achieved with 2 mg of Versed, patient was prepped and draped in the usual sterile fashion. The 2nd rib was located and marked and then infiltrated with 1% lidocaine down the pleura after sterilely prepping and draping her. Incision was made, and a tunnel was created in the chest without difficulty. A #20 chest tube was then placed. Chest tube was secured to the chest wall with 2-9 Tevdek suture and connected to the Pleur-evac. There was an air leak which eventually stopped. Patient tolerated the procedure well, and a chest x-ray shows show the lung fully expanded to the chest wall with the chest tube in excellent position.
--- NOTE | 2020-11-06 11:19 | IPN ---
PROGRESS NOTE DATE: 11/06/2020 Last night I was called to place an emergent chest tube in a patient who is status post COVID with post-COVID fibrosis with a pneumothorax and very short of breath. Today she is breathing much better, and the pain is being fairly well controlled at the chest tube insertion site. Her vital signs show a maximum temperature of 97.8 with a heart rate that ranges between 94-128 in a sinus rhythm, respiratory rate of 17-30 with some use of neck accessory muscles. She is 87%-94% saturated on 100% FiO2 at a VapoTherm flow rate of 20 liters per minute. Her blood pressure is ranging between 121/59 to 93/55. Her intake and output for the past 24 hours has been recorded as 2650 in and 1250 out for a positivity of 1400 mL. She has put out 25 mL from the chest tube, and there is no air leak. Weight today is 103.7 kg compared to 102.5 kg yesterday. PHYSICAL EXAMINATION: Her lungs show inspiratory crackles on the right side, particularly near the base. They are, however, heard throughout the entire right side. Left side shows essentially normal vesicular sounds. Percussion notes are full to the diaphragm. Cardiac exam is without murmurs, clicks, gallops, or rubs. I cannot feel her point of maximal impulse (PMI). S1 and S2 are normal. Abdomen is soft and nontender. Bowel sounds are positive. There is no hepatomegaly. No costovertebral angle (CVA) tenderness. Extremities show no pretibial edema, no calf tenderness, no differential swelling of the upper extremities. Skin is warm, dry, and perfused without cyanosis or mottling, including that of the nailbeds and knees. Neck is supple. There is no jugular venous distention. No subcutaneous emphysema. Trachea is midline. She as 2+ carotid upstrokes. Mouth shows the mucous membranes to be pink and moist. Lips and commissures without lesions. There is no thrush. I do see some pitting or possible ulceration on the back tonsillar pillar in the posterior pharynx on the left side. Eyes show her pupils to be equal and reactive. Extraocular motion intact. Sclerae anicteric. Neurologic shows II-XII intact. Normal gross motor, gross sensation intact. Gait is not tested. Psychiatric shows her to be awake, alert, and oriented times three with appropriate mood and affect and conversational. Able to speak in full sentences now. Her white count today is 14.3 with a hemoglobin and hematocrit of 12.4 and 38.8, essentially unchanged from yesterday, with a platelet count of 335 and stable. Differential shows 87% neutrophils, 5% lymphocytes, 3% monocytes. There are no immature forms or toxic granulations. Her electrolytes are essentially normal with a BUN and creatinine of 22 and 0.29. She remains on Toradol. Glucose is 192 with a calcium of 9.0. Blood gases this morning show a pH of 7.35, pCO2 of 55, pO2 of 66, which is unchanged essentially from yesterday. Base excess is 3.2. Her chest x-ray today now shows the lung fully expanded to the chest wall. She has diffuse articular nodular pattern, greater on the right than the left. Chest tube is in excellent position. Costophrenic angles are sharp. Review of her chest CT done on October 28 under angiographic protocol shows diffuse ground-glass appearance with septal thickening and cystic changes in the lower lobe with bullae. Those are referable to the right side. I do not see bullous changes on the right side, although there are cystic changes throughout. IMPRESSION: 1. Spontaneous pneumothorax, right side. 2. Hypoxic respiratory failure. 3. Probable necrotic pneumonia. 4. COVID-19 earlier this spring. 5. Post-COVID fibrosis. 6. Status post repair of incarcerated incisional hernia 09/02/2020. PLAN AND DISCUSSION: I will discontinue her chest tube suction today. The question was posed to me whether CPAP caused this. It may have, but there is also the other contributing factor of her having cystic disease throughout her right lung and particularly in the lower lobe near the diaphragm, which could have ruptured spontaneously. There is no contraindication to her undergoing CPAP now, nor is there any contraindication to her doing physical therapy with the aim of reconditioning her. I will follow her chest x-rays daily.
--- NOTE | 2020-11-06 13:11 | IPN ---
"PROGRESS NOTE DATE: 11/06/2020 SUBJECTIVE: I attended Senia Kumari here in the intensive care unit. The patient has been examined and transferred here. I spoke at length with Dr. John last night regarding her. In essence, she has been here for several months now after incarcerated hernia and then followed by significant difficulties with COVID pneumonia. More recently, she developed a necrotizing right lower lobe pneumonia. She is clinically improving. She does have obstructive sleep apnea syndrome, as well as significant difficulties with atelectasis. She has been on and off noninvasive support for this. Last evening, she developed acute pleuritic pain while on noninvasive support. Chest x-ray confirmed a right-sided pneumothorax. Tube thoracostomy performed by Dr. Pena with good response and inflation of the right lung to the chest wall. She has had improvement in her oxygen requirements. She complains of pain at the chest tube site this morning. I had a long discussion with her regarding the need for expansion therapy and this will be discussed further below. Currently, she is sitting in bed comfortable eating breakfast and is comfortably conversant. OBJECTIVE: T-max overnight 97.6, blood pressure 98 to the 120s. Heart rate 90s to the 120s, respiratory rate generally in the upper teens to low 20s. Oxygen requirements. Currently is on Vapotherm at a 25 |liter per minute flow rate with a saturation between 88 and 91%. Chest x-ray does show expansion of the right lung to the chest wall. No other acute findings. Most recent laboratories show white blood cell count of 14.3, hemoglobin 12.4, platelet count 335,000. 87% segments, no bands this morning. Sodium 139, potassium 4.8, chloride 104, Co2 31, BUN 22, creatinine 0.29, glucose 192. Repeat blood gas done this morning shows pH 7.352, pCO2 of 55.2 and pO2 of 66.5. PHYSICAL EXAMINATION: She is awake, alert and appropriate. Mildly tachypneic with conversation. Pupils react. Sclerae clear. Trachea is in the midline. Chest shows a right anterior chest tube and a right arm PICC line. Dressings were in place. She has got good bilateral air entry. Some decreased breath sounds with some crackles at the extreme right base, but no other focal adventitious breath sounds were identified. Cardiac examination is regular. Peripheral pulses palpable. Minimal edema. Abdomen obese, soft, normoactive bowel sounds. No convincing organomegaly or masses. Extremities: No cyanosis or clubbing. Neurologically, she is awake, alert and appropriate. Psych: Normal mood and affect. ASSESSMENT: 1. Hypoxemia, multifactorial. 2. Pneumothorax secondary to necrotizing pneumonia. 3. Obstructive sleep apnea syndrome. 4. Post COVID infection with residual fibrotic changes. RECOMMENDATIONS: A very long discussion with family concerning her current status. She has difficulties with underlying anxiety and therefore is fearful going back on noninvasive support. Unfortunately, it is the one thing that has actually kept her from being re-intubated as she still is fairly bed ridden; and in view of her body habitus she gets into significant difficulties with progressive atelectasis. In view of this, anything we can do to help with alveolar recruitment is essential. I did discuss this with her and she conveys understanding. She will be monitored closely when on noninvasive support and she is currently in the intensive care unit. In the interim, will use Vapotherm, EzPAP and PAP therapy. I will ask physical therapy to come be involved with her as well as she remains globally deconditioned. She is currently on low dose steroid replacements and she has been on steroids for months now. I am full agreement with her current antimicrobials since she is on vancomycin and cefepime for her right lower lobe pneumonia. She has had a little bit of a bad time yesterday which has dissipated. At this point, her prognosis still remains guarded as she remains tenuous. I did discuss this with her as well. She currently wishes to remain a full code. Will proceed as outline above. Further recommendations will be in the progress records."
--- NOTE | 2020-11-06 18:54 | IPNPDOC ---
Subjective Date Seen The patient was seen on 11/06/20. Subjective Chief Complaint/HPI Mrs. Jordan is a 50 year old female who is here with acute hypoxemic respiratory failure 2/2 ARDS 2/2 COVID 19, necrotizing pneumonia, and incar cerated incisional hernia. Overnight, she developed a right sided pneumothorax. Dr. Pena was urgently called in for chest tube insertion and it went well. This morning, she appeared comfortable. She reported some right sided pain, but otherwise, no chest pain. She was able to be up twice to eat. Dr. Pena was okay for patient to continued use of CPAP and PT. Dr. Coker also agreed with non-invasive support to help with oxygenation. Objective Physical Examination General Exam: Positive: Alert, Cooperative Eye Exam: Negative: Sclera icteric ENT Exam: Positive: Atraumatic Chest Exam: Positive: Clear to auscultation Heart Exam: Positive: Rate Normal Abdomen Exam: Positive: Normal bowel sounds, Soft, Tenderness (right side) Extremity Exam: Positive: Other Neuro Exam: Positive: Normal Speech Psych Exam: Positive: Anxiety Assessment /Plan Assessment Mrs. Jordan is a 50 year old female who is here with acute hypoxemic respiratory failure 2/2 ARDS 2/2 COVID 19 and incarcerated incisional hernia. She has been hospitalized over a month and will require rehab. When here oxygen requirements are lower, she can be placed to rehab. Continues with Solumedrol 15mg q12h and Lovenox for IPAH. Encourage use of IS. Patient will need to use the BIPAP/CPAP as much as possible to improve her aeration. Patient has been on steroids for more than a month. Patient will be started on PCP prophylaxis. Patient have been have right sided pain. CT angio chest was negative for PE. Dr. Chan looked at this CT. Combined with the patient's pain, patient most likely has right lower lobe pneumonia with necrosis. Patient on IV cefepime/ On evening of 11/05/2020, patient developed right pneumothorax. Dr. Pena emergently inserted chest tube and it went well. Plan/VTE VTE Prophylaxis Ordered?: Yes Plan 1. Acute hypoxemic respiratory failure 2/2 ARDS 2/2 COVID-19 -Acute COVID-19 has resolved. Patient has completed treatment with tocilizumab, remdesivir, and decadron. -Patients hypoxia is multifactorial. 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 She is on solumedrol 15 mg IV q12. PCP prophylaxis with Bactrim 1DS qD -Pulmonary medicine has been consulted and is following intermittently. -She is continued on full dose Lovenox for possible PE. She had not received a CTA initially given the severity of her hypoxia. She has shown improvement. She does still desaturate with movement although not as significantly. Could consider performing CTA as she may be able to tolerate. This would help guide the duration of her anticoagulation therapy. Although she likely has pulmonary hypertension given her severe hypoxia and therefore would benefit from anticoagulation regardless -Will defer duration of anticoagulation to Pulmonary medicine in regards to whether she will need life long -Patient will need to use BIPAP/CPAP as much as possible to help expand lungs. 2. Acute hypoxemic respiratory failure 2/2 hospital acquired pneumonia with necrosis -Dr. Chan looked at the CT image, the bullae may be necrosis. Patient also had pleuritic chest pain supporting the idea of necrotic pneumonia -Patient started on Cefepime day 6 -MRSA screen negative (Had 5 days of Vancomycin) 3. Morbilliform Rash -thought to be 2/2 bactrim, improved after DC. 4. Sinus Tachycardia -Patient continues to be in sinus tachycardia. Likely secondary to hypoxia. Echocardiogram has resulted without any significant findings. Her tachycardia is resolving. Her HR is currently 100-110 improved from 130 -Continue Lopressor 50mg BID and Cardizem 60mg q6hr 5. Transient Atrial fibrillation -Patient has remained in sinus. Was noted to have an episode of atrial fibrillation earlier in her hospitalization likely driven by hypoxia 6. Hematuria -Has resolved. Patient is on full dose anticoagulation. Will continue to monitor 7. JAQUELINE -Patient is currently on Bilevel 8. Incarcerated Incisional Hernia -s/p surgical correction on 09/02/2020 -Healing well. No acute complications 9. Physical Deconditioning/Debility -Patient has an extended hospital stay of over 1 month with critical illness. She is severely debilitated. She is working with physical therapy. 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 10 Constipation -Bowel regimen ordered 11. GI prophylaxis -Protonix 12. DVT prophylaxis -Lovenox 13. Right pneumothorax -Dr. Pena following, recommendations appreciated -Chest tube inserted on 11/05/2020 -Okay for PT and CPAP DISPOSITION: Pending improvement in oxygen requirements. Continue to encourage use of CPAP. VS, I&O, 24H, Fishbone Vital Signs/I&O Vital Signs Date Time Temp Pulse Resp B/P (MAP) Pulse Ox O2 Delivery O2 Flow Rate FiO2 11/06/20 18:21 137 126/67 11/06/20 16:00 98.0 19 92 HVNI-Vapotherm 25.0 100 I&O- Last 24 Hours up to 6 AM 11/06/20 06:00 Intake Total 2430 ml Output Total 1275 ml Balance 1155 ml Laboratory Data 24H LABS Laboratory Tests 2 11/05/20 21:31: Nucleated Red Blood Cells % (auto) 0.2H, Anion Gap 6L, Glomerular Filtration Rate > 60.0, Calcium Level 9.5, Troponin I < 0.02 11/05/20 22:42: Blood Gas Bicarbonate Standard 26.7H, Arterial Blood pH 7.342L, Arterial Blood Partial Pressure CO2 56.4H, Arterial Blood Partial Pressure O2 60.6L, Arterial Blood Total CO2 31.6H, Arterial Blood HCO3 29.9H, Arterial Blood Base Excess 2.8H, Arterial Blood Oxygen Saturation 88.3L 11/06/20 00:08: Nucleated Red Blood Cells % (auto) 0.2H, Anion Gap 6L, Glomerular Filtration Rate > 60.0, Calcium Level 9.5, Immature Granulocyte % (Auto) , Neutrophils (%) (Auto) , Neutrophils 88H, Band Neutrophils , Lymphocytes (Manual) 3L, Monocytes (Manual) 5, Eosinophils (Manual) 1, Myelocytes 2H, Atypical Lymphocytes 1, Anisocytosis 1+, Platelet Estimate NORMAL 11/06/20 05:38: Nucleated Red Blood Cells % (auto) 0.0, Anion Gap 4L, Glomerular Filtration Rate > 60.0, Calcium Level 9.0, Immature Granulocyte % (Auto) 3.5H, Neutrophils (%) (Auto) 87.4H, Lymphocytes (%) (Auto) 5.0L, Monocytes (%) (Auto) 3.4, Eosinophils (%) (Auto) 0.0, Basophils (%) (Auto) 0.7, Neutrophils # (Auto) 12.5H, Lymphocytes # (Auto) 0.7L, Monocytes # (Auto) 0.5, Eosinophils # (Auto) 0.0, Basophils # (Auto) 0.1 11/06/20 05:46: Blood Gas Bicarbonate Standard 27.1H, Arterial Blood pH 7.352, Arterial Blood Partial Pressure CO2 55.2H, Arterial Blood Partial Pressure O2 66.5L, Arterial Blood Total CO2 31.6H, Arterial Blood HCO3 29.9H, Arterial Blood Base Excess 3.2H, Arterial Blood Oxygen Saturation 91.3L 11/06/20 10:56: Vancomycin Level Trough 13.5 11/06/20 12:32: Bedside Glucose (Misc Panel) 114H 11/06/20 17:37: Bedside Glucose (Misc Panel) 139H CBC/BMP Laboratory Tests 11/05/20 21:31 11/06/20 00:08 11/06/20 05:38 Microbiology Microbiology 10/31/20 Blood Culture - Final, Complete NO GROWTH AFTER 5 DAYS 10/31/20 Blood Culture - Final, Complete NO GROWTH AFTER 5 DAYS JACINDA THOMASON DO Nov 06, 2020 18:54
[2020-11-06] MEDS: SERTRALINE HCL 25 MG TABLET PO SCH (20:17)
[2020-11-06] MEDS: CALCIUM CARBONATE 500 MG CHEW U/D PO PRN (20:18)
[2020-11-06] MEDS: **NOTE PATIENT COMMENT** MISC XX SCH (20:20)
[2020-11-07] VITALS (8 sets, daily range): BP systolic 111–134; BP diastolic 55–69; O2SAT 87–93
[2020-11-07] MEDS: PERCOCET 5MG/325MG TAB PO PRN (00:02)
[2020-11-07] MEDS: LEVALBUTEROL 1.25 MG/0.5 ML CONCENTRATE NEB NEB SCH ×4 (01:19→20:11)
[2020-11-07] MEDS: CEFEPIME HCL 2 GM in D5W MINI-BAG PLUS 50 ML IV SCH ×3 (04:26→20:40)
[2020-11-07] MEDS: KETOROLAC 30 MG/ML 1ML VIAL IV SCH ×4 (05:01→20:43)
[2020-11-07] MEDS: ALPRAZolam 0.5 MG TAB PO SCH ×3 (05:08→18:20)
[2020-11-07] MEDS: ACETAMINOPHEN TAB 650MG DOSE (2X325MG) PO PRN (05:08)
[2020-11-07] MEDS: SODIUM CHLORIDE 0.9% INJ 10 ML SYR IV SCH ×2 (05:10→18:21)
[2020-11-07 05:26] LABS: HEMATOCRIT 36.5 % (36.0-47.0); HEMOGLOBIN 11.5 g/dl (12.0-15.5); MEAN CORPUSCULAR HEMOGLOBIN 30.7 pg (27.0-33.0); MEAN CORPUSCULAR HGB CONC 31.5 g/dl (32.0-36.5); MEAN CORPUSCULAR VOLUME 97.6 fl (80.0-96.0); PLATELET COUNT, AUTOMATED 317 10^3/uL (150-450); RED BLOOD COUNT 3.74 10^6/uL (4.00-5.40); WHITE BLOOD COUNT 10.3 10^3/uL (4.0-10.0)
[2020-11-07 05:32] LABS: ATYPICAL LYMPH 6 % (0-5); LYMPHOCYTES 7 % (16-44); MONOCYTES 2 % (0-5); NEUTROPHILS 85 % (28-66); PLATELET CLUMPS SMALL AMT; PLATELET ESTIMATE NORMAL (NORMAL); POLYCHROMASIA 1+
[2020-11-07 05:57] LABS: BLOOD UREA NITROGEN 19 MG/DL (7-18); CALCIUM LEVEL 8.6 MG/DL (8.5-10.1); CARBON DIOXIDE LEVEL 34 MEQ/L (21-32); CHLORIDE LEVEL 102 MEQ/L (98-107); CREATININE FOR GFR 0.21 MG/DL (0.55-1.30); GLOMERULAR FILTRATION RATE > 60.0 (>51); GLUCOSE, FASTING 193 MG/DL (70-100); POTASSIUM SERUM 4.2 MEQ/L (3.5-5.1); SODIUM LEVEL 138 MEQ/L (136-145)
[2020-11-07] MEDS: IPRATROPIUM 0.5MG/ALBUTEROL 2.5MG INH SOL UD 3ML (DUONEB) NEB SCH ×4 (08:00→20:00)
[2020-11-07] MEDS: ANALGESIC BALM CRM 3OZ TOP SCH ×4 (08:23→20:57)
[2020-11-07] MEDS: ENOXAPARIN 100MG/1ML SYRINGE (J1650 PER 10MG) SC SCH ×2 (08:23→20:43)
[2020-11-07] MEDS: methylPREDNISolone 40MG 1ML VIAL IV SCH ×2 (08:24→20:41)
[2020-11-07] MEDS: HumaLOG INSULIN (NovoLOG) PER UNIT SC SCH ×4 (08:24→20:56)
[2020-11-07] MEDS: PANTOPRAZOLE 40MG TAB (PROTONIX) PO SCH ×2 (08:25→20:42)
[2020-11-07] MEDS: LIDOCAINE 5% (LIDODERM) PATCH TD SCH (08:25)
[2020-11-07] MEDS: guaiFENesin ER 600 MG TAB PO SCH ×2 (08:25→20:41)
[2020-11-07] MEDS: DOCUSATE SODIUM 100MG CAPSULE PO SCH ×2 (08:25→20:42)
[2020-11-07] MEDS: BACTRIM 160MG/800MG DS TAB PO SCH (08:25)
[2020-11-07] MEDS: MOM 30ML SUSPENSION UDC PO SCH (08:26)
[2020-11-07] MEDS: METOPROLOL TART 25 MG TABLET PO SCH ×2 (08:26→20:42)
--- NOTE | 2020-11-07 08:42 | REP ---
INDICATION: pneumothorax COMPARISON: 11/06/2020 TECHNIQUE: Portable AP view of the chest FINDINGS: Chest tube at the right apex and small residual right apical pneumothorax suggested. Diffuse bilateral infiltrates may be slightly progressive as compared to prior examination although comparison is limited due to wide variation in technique. Right PICC line in stable position. Mediastinum and cardiac silhouette are incompletely evaluated due to overlying opacities. Skeletal structures are stable. IMPRESSION: Small residual right apical pneumothorax suspected. Diffuse bilateral infiltrates may be slightly progressive as compared to prior examination. <Electronically signed by Israel Holguin > 11/07/20 0889
--- NOTE | 2020-11-07 11:25 | IPNPDOC ---
Subjective Date Seen The patient was seen on 11/07/20. Subjective Chief Complaint/HPI Mrs. Jordan is a 50 year old female who is here with acute hypoxemic respiratory failure 2/2 ARDS 2/2 COVID 19, necrotizing pneumonia, and incar cerated incisional hernia. She was seen early this morning. Right-sided chest pain is improving. She tells me her breathing is okay. Still on Vapotherm. I encouraged use of CPAP, but she still very anxious about the CPAP. Objective Physical Examination General Exam: Positive: Alert, Cooperative Eye Exam: Negative: Sclera icteric ENT Exam: Positive: Atraumatic Chest Exam: Positive: Clear to auscultation Heart Exam: Positive: Rate Normal Abdomen Exam: Positive: Normal bowel sounds, Soft, Tenderness (right side) Extremity Exam: Positive: Other Neuro Exam: Positive: Normal Speech Psych Exam: Positive: Anxiety Assessment /Plan Assessment Mrs. Jordan is a 50 year old female who is here with acute hypoxemic respiratory failure 2/2 ARDS 2/2 COVID 19 and incarcerated incisional hernia. She has been hospitalized over a month and will require rehab. When here oxygen requirements are lower, she can be placed to rehab. Continues with Solumedrol 15mg q12h and Lovenox for IPAH. Encourage use of IS. Patient will need to use the BIPAP/CPAP as much as possible to improve her aeration. Patient has been on steroids for more than a month. Patient will be started on PCP prophylaxis. Patient have been have right sided pain. CT angio chest was negative for PE. Dr. Chan looked at this CT. Combined with the patient's pain, patient most likely has right lower lobe pneumonia with necrosis. Patient on IV cefepime/ On evening of 11/05/2020, patient developed right pneumothorax. Dr. Pena emergently inserted chest tube and it went well. Plan/VTE VTE Prophylaxis Ordered?: Yes Plan 1. Acute hypoxemic respiratory failure 2/2 ARDS 2/2 COVID-19 -Acute COVID-19 has resolved. Patient has completed treatment with tocilizumab, remdesivir, and decadron. -Patients hypoxia is multifactorial. 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 She is on solumedrol 15 mg IV q12. PCP prophylaxis with Bactrim 1DS qD -Pulmonary medicine has been consulted and is following intermittently. -She is continued on full dose Lovenox for possible PE. She had not received a CTA initially given the severity of her hypoxia. She has shown improvement. She does still desaturate with movement although not as significantly. Could consider performing CTA as she may be able to tolerate. This would help guide the duration of her anticoagulation therapy. Although she likely has pulmonary hypertension given her severe hypoxia and therefore would benefit from anticoagulation regardless -Will defer duration of anticoagulation to Pulmonary medicine in regards to whether she will need life long -Patient will need to use BIPAP/CPAP as much as possible to help expand lungs. 2. Acute hypoxemic respiratory failure 2/2 hospital acquired pneumonia with necrosis -Dr. Chan looked at the CT image, the bullae may be necrosis. Patient also had pleuritic chest pain supporting the idea of necrotic pneumonia -Patient started on Cefepime day 7 -MRSA screen negative (Had 5 days of Vancomycin) 3. Morbilliform Rash -thought to be 2/2 bactrim, improved after DC. 4. Sinus Tachycardia -Patient continues to be in sinus tachycardia. Likely secondary to hypoxia. Echocardiogram has resulted without any significant findings. Her tachycardia is resolving. Her HR is currently 100-110 improved from 130 -Continue Lopressor 50mg BID and Cardizem 60mg q6hr 5. Transient Atrial fibrillation -Patient has remained in sinus. Was noted to have an episode of atrial fibrillation earlier in her hospitalization likely driven by hypoxia 6. Hematuria -Has resolved. Patient is on full dose anticoagulation. Will continue to monitor 7. JAQUELINE -Patient is currently on Bilevel 8. Incarcerated Incisional Hernia -s/p surgical correction on 09/02/2020 -Healing well. No acute complications 9. Physical Deconditioning/Debility -Patient has an extended hospital stay of over 1 month with critical illness. She is severely debilitated. She is working with physical therapy. She will need terminal carman rehab pending clinical improvement. 10 Constipation -Bowel regimen ordered 11. GI prophylaxis -Protonix 12. DVT prophylaxis -Lovenox 13. Right pneumothorax -Dr. Pena following, recommendations appreciated -Chest tube inserted on 11/05/2020 -Okay for PT and CPAP DISPOSITION: Pending improvement in oxygen requirements. Continue to encourage use of CPAP. VS, I&O, 24H, Fishbone Vital Signs/I&O Vital Signs Date Time Temp Pulse Resp B/P (MAP) Pulse Ox O2 Delivery O2 Flow Rate FiO2 11/07/20 08:26 90 129/61 11/07/20 08:00 97.2 26 93 HVNI-Vapotherm 40.0 100 I&O- Last 24 Hours up to 6 AM 11/07/20 06:00 Intake Total 1730 ml Output Total 1397 ml Balance 333 ml Laboratory Data 24H LABS Laboratory Tests 2 11/06/20 12:32: Bedside Glucose (Misc Panel) 114H 11/06/20 17:37: Bedside Glucose (Misc Panel) 139H 11/06/20 20:14: Bedside Glucose (Misc Panel) 155H 11/07/20 05:06: Immature Granulocyte % (Auto) , Neutrophils (%) (Auto) , Nucleated Red Blood Cells % (auto) 0.0, Neutrophils 85H, Lymphocytes (Manual) 7L, Monocytes (Manual) 2, Atypical Lymphocytes 6H, Polychromasia 1+, Platelet Estimate NORMAL, Clumped Platelets SMALL AMT 11/07/20 05:07: Anion Gap 2L, Glomerular Filtration Rate > 60.0, Calcium Level 8.6 CBC/BMP Laboratory Tests 11/07/20 05:06 11/07/20 05:07 Microbiology Microbiology 10/31/20 Blood Culture - Final, Complete NO GROWTH AFTER 5 DAYS 10/31/20 Blood Culture - Final, Complete NO GROWTH AFTER 5 DAYS JACINDA THOMASON DO Nov 07, 2020 11:25
--- NOTE | 2020-11-07 16:42 | REP ---
INDICATION: Hypoxia COMPARISON: 11/07/2020 at 8:11 a.m. TECHNIQUE: Portable AP view of the chest FINDINGS: Moderate right pneumothorax has increased from prior examinations now measuring approximately 3 cm from the right apex. Chest tube is in stable position. Diffuse bilateral airspace disease again noted and unchanged. IMPRESSION: Right pneumothorax has increased from prior examination. <Electronically signed by Isreal Holguin > 11/07/20 [id number]
[2020-11-07] MEDS: NORCO, ANEXSIA 5/325MG TABLET (HYDROcodone/ACETAMINOPHEN) PO PRN (17:05)
--- NOTE | 2020-11-07 17:58 | REP ---
INDICATION: Increasing SOB COMPARISON: 11/07/2020 at 16:07 TECHNIQUE: Portable AP view of the chest FINDINGS: Moderate right pneumothorax unchanged from most recent prior examination. Diffuse bilateral chronic and superimposed parenchymal opacities unchanged. Right apical chest tube and right PICC line in stable position. IMPRESSION: No change from most recent prior examination with continued moderate right pneumothorax and bilateral airspace disease again noted. <Electronically signed by Israel Holguin > 11/07/20 [id number]
--- NOTE | 2020-11-07 18:44 | IPN ---
PROGRESS NOTE DATE: 11/07/2020 SUBJECTIVE: Ms. Kumari is now out in the PCU. She is having trouble using her BiPAP. On rounds today with the hope of decreasing her anxiety and intolerance of the BiPAP, I changed her BiPAP settings to lower levels to 12/6 to see if she would tolerate that a little bit better. She did not and still became quite panicky indicating that she just was not getting full breaths. Her respiratory rate went from 20 to 45. I therefore placed her back on the high flow oxygen and returned her CPAP settings to what they were of 16/10. OBJECTIVE: VITAL SIGNS: Show a T-max of 98.9 with a heart rate that ranges between 90 and 107 in sinus rhythm. Respiratory rate of 22 to 30 without the use of accessory muscles who is 88% to 93% saturated on 100% FiO2 high flow at 20 L/min. INTAKE AND OUTPUT: Over the past 24 hours has been recorded as 1880 in and 1422 out for a positivity of 458 mL. She has put out 72 mL in the chest tube and there is no air leak. Her weight today is 103.7 kg, which is identical to that yesterday. RESPIRATORY: She has expiratory and inspiratory crackles throughout with some inspiratory wheezing. Percussion notes are full to the diaphragm. CARDIAC: Without murmurs, clicks, gallops, or rubs. I cannot feel her PMI. S1 and S2 are normal. ABDOMEN: Soft and nontender. Bowel sounds are positive. There is no hepatomegaly. No CVA tenderness. EXTREMITIES: Show no pretibial edema. No calf tenderness. No differential swelling of the upper extremities. SKIN: Warm, dry, and perfused without cyanosis or mottling, including that of the nail beds and knees. NECK: Supple. There is no jugular venous distention. No subcutaneous emphysema. Trachea is midline. MOUTH: Shows her mucous membranes to be pink and moist. Lips and commisures are without lesions and no thrush. EYES: Show her pupils equal and reactive. Extraocular muscles are intact. Sclerae nonicteric. NEUROLOGIC: Shows II through XII intact. Normal gross motor, gross sensation intact. Gait is not tested. PSYCHIATRIC: Shows her to be awake, alert, and oriented x3 with appropriate mood and affect and conversational. LABORATORY DATA: Her white count today is down to 10.3 with hemoglobin and hematocrit of 11.5 and 36.5, essentially unchanged from yesterday with a platelet count of 317,000 and stable. Differential shows 85% neutrophils, 7% lymphocytes, and 2% monocytes. There are no immature forms and no toxic granulations. Chemistries show essentially normal electrolytes with a marginally elevated total CO2 of 34. BUN and creatinine are 19 and 0.21 with a glucose of 193 and a calcium of 8.6. IMAGING DATA: Her chest x-ray today shows the diffuse infiltrates throughout. The pneumothorax is resolved. There may be a small rim at the very cupula. It is done portably as she cannot go down to chest x-ray on her Vapotherm. IMPRESSION: 1. Spontaneous pneumothorax right side. 2. Hypoxic respiratory failure. 3. Probable necrotic pneumonia. 4. COVID-19 earlier in the spring. 5. Post-COVID fibrosis. 6. Status post incarcerated incisional hernia repaired 09/02/2020. PLAN AND DISCUSSION: In discussion with Dr. Coker of pulmonology, it is agreed that the chest tube ought to be left in prophylactically as she is still on the BiPAP. I am not absolutely sure whether the BiPAP contributed to her pneumothorax, but it certainly could have. She has various areas of necrotizing pneumonia and cystic changes throughout her legs on chest CT and they could have ruptured spontaneously with or without the CPAP. I will therefore keep the chest tube in.
[2020-11-07] MEDS: SERTRALINE HCL 25 MG TABLET PO SCH (20:42)
[2020-11-07] MEDS: **NOTE PATIENT COMMENT** MISC XX SCH (20:57)
--- NOTE | 2020-11-07 22:39 | REPVR ---
PROCEDURE INFORMATION: Exam: XR Chest Exam date and time: 11/07/2020 8:06 PM Age: 50 years old Clinical indication: Other: 1 hr recheck; Additional info: 1 hr recheck pneumothorax TECHNIQUE: Imaging protocol: XR of the chest. Views: 1 view. COMPARISON: 1. [facility] PORTABLE CHEST X-RAY 2020-11-07 17:25 2. [facility] PORTABLE CHEST X-RAY 2020-11-07 16:07 3. [facility] PORTABLE CHEST X-RAY 2020-11-07 08:05 4. CR PORTABLE CHEST X-RAY 2020-11-05 23:37 FINDINGS: Tubes, catheters and devices: Right upper extremity PICC line tip is in the superior atrial caval junction region. Right-sided chest tube. Lungs: Diffuse lung infiltrates. Pleural spaces: Unremarkable. No pleural effusion. No pneumothorax. Heart/Mediastinum: Unremarkable. No cardiomegaly. Bones/joints: Unremarkable. IMPRESSION: Decreased right-sided pneumothorax, nearly non visible. Electronically signed by: Dereje Lares On 11/07/2020 22:38:53 PM
[2020-11-08] VITALS (24 sets, daily range): BP systolic 127–139; BP diastolic 61–79; O2SAT 86–96
[2020-11-08] MEDS: KETOROLAC 30 MG/ML 1ML VIAL IV SCH ×4 (00:15→18:29)
[2020-11-08] MEDS: LEVALBUTEROL 1.25 MG/0.5 ML CONCENTRATE NEB NEB SCH ×4 (02:50→21:03)
[2020-11-08] MEDS: CEFEPIME HCL 2 GM in D5W MINI-BAG PLUS 50 ML IV SCH ×3 (05:11→20:51)
[2020-11-08] MEDS: SODIUM CHLORIDE 0.9% INJ 10 ML SYR IV SCH ×2 (05:18→18:29)
[2020-11-08] MEDS: ALPRAZolam 0.5 MG TAB PO SCH ×4 (05:18→18:30)
[2020-11-08 05:36] LABS: HEMATOCRIT 36.7 % (36.0-47.0); HEMOGLOBIN 11.3 g/dl (12.0-15.5); MEAN CORPUSCULAR HEMOGLOBIN 30.5 pg (27.0-33.0); MEAN CORPUSCULAR HGB CONC 30.8 g/dl (32.0-36.5); MEAN CORPUSCULAR VOLUME 98.9 fl (80.0-96.0); PLATELET COUNT, AUTOMATED 345 10^3/uL (150-450); RED BLOOD COUNT 3.71 10^6/uL (4.00-5.40); WHITE BLOOD COUNT 10.2 10^3/uL (4.0-10.0)
[2020-11-08 05:51] LABS: LYMPHOCYTES 6 % (16-44); METAMYELOCYTES 2 % (0-0); MONOCYTES 2 % (0-5); MYELOCYTES 1 % (0-0); NEUTROPHILS 86 % (28-66)
[2020-11-08 05:52] LABS: PLATELET ESTIMATE DECREASED (NORMAL)
[2020-11-08 05:53] LABS: ANISOCYTOSIS 1+; HYPOCHROMASIA 1+; PLATELET CLUMPS SMALL AMT
[2020-11-08 06:07] LABS: BLOOD UREA NITROGEN 29 MG/DL (7-18); CALCIUM LEVEL 9.2 MG/DL (8.5-10.1); CARBON DIOXIDE LEVEL 34 MEQ/L (21-32); CHLORIDE LEVEL 103 MEQ/L (98-107); CREATININE FOR GFR 0.25 MG/DL (0.55-1.30); GLOMERULAR FILTRATION RATE > 60.0 (>51); GLUCOSE, FASTING 210 MG/DL (70-100); POTASSIUM SERUM 4.4 MEQ/L (3.5-5.1); SODIUM LEVEL 142 MEQ/L (136-145)
[2020-11-08] MEDS: IPRATROPIUM 0.5MG/ALBUTEROL 2.5MG INH SOL UD 3ML (DUONEB) NEB SCH ×4 (08:00→21:04)
--- NOTE | 2020-11-08 08:34 | REP ---
INDICATION: pneumothorax COMPARISON: 11/07/2020 TECHNIQUE: Portable AP view of the chest FINDINGS: Right apical chest tube in stable position. No significant residual pneumothorax identified on current examination. Right PICC line in stable position. Mediastinum and cardiac silhouette are within normal limits. Diffuse bilateral infiltrates similar to prior examination. IMPRESSION: 1. No significant residual pneumothorax identified. 2. Multifocal infiltrates unchanged. <Electronically signed by Israel Holguin > 11/08/20 [id number]
[2020-11-08] MEDS: MOM 30ML SUSPENSION UDC PO SCH (09:00)
[2020-11-08] MEDS: DOCUSATE SODIUM 100MG CAPSULE PO SCH ×2 (09:00→20:52)
[2020-11-08] MEDS: methylPREDNISolone 40MG 1ML VIAL IV SCH ×2 (09:14→20:51)
[2020-11-08] MEDS: ENOXAPARIN 100MG/1ML SYRINGE (J1650 PER 10MG) SC SCH ×2 (09:14→20:53)
[2020-11-08] MEDS: ANALGESIC BALM CRM 3OZ TOP SCH ×4 (09:15→20:53)
[2020-11-08] MEDS: LIDOCAINE 5% (LIDODERM) PATCH TD SCH (09:15)
[2020-11-08] MEDS: guaiFENesin ER 600 MG TAB PO SCH ×2 (09:16→20:52)
[2020-11-08] MEDS: HumaLOG INSULIN (NovoLOG) PER UNIT SC SCH ×4 (09:16→20:44)
[2020-11-08] MEDS: PANTOPRAZOLE 40MG TAB (PROTONIX) PO SCH ×2 (09:17→20:52)
[2020-11-08] MEDS: BACTRIM 160MG/800MG DS TAB PO SCH (09:18)
[2020-11-08] MEDS: METOPROLOL TART 25 MG TABLET PO SCH ×2 (09:20→20:52)
[2020-11-08] MEDS: PERCOCET 5MG/325MG TAB PO PRN ×2 (09:54→22:11)
--- NOTE | 2020-11-08 10:40 | IPN ---
PROGRESS NOTE DATE: 11/08/2020 SUBJECTIVE: I again attended Senia Kumari. She is in the Progressive Care Unit now. She had issues yesterday with increased shortness of breath and oxygen desaturation. Chest tube at that time was on water seal. Chest x-ray showed a marked increase in her pneumothorax. Changes to the Pleur-Evac were made by Dr. Pena. She is now on -40 cm of water with suction. The latest chest x-ray does show the lung expanded to the chest wall. Pleur-Evac shows a very large and nearly continuous leak. I also believe that the chest x-ray shows diffuse increased interstitial markings. She has been on a decreasing level of steroids. Her I and O's are only mildly positive over the last several days. OBJECTIVE: VITAL SIGNS: T-max overnight 97.2, blood pressure 120s to 130s, heart rate in the 90s to low 100s with a sinus mechanism, respiratory rate generally in the 20s without accessory muscle use. For the most part, she is on Vapotherm. She is only intermittently on non-invasive support. GENERAL: She is awake, alert and appropriate. She is mildly dyspneic with prolonged conversation. HEENT: Normocephalic, atraumatic. Pupils react. NECK: Supple. She has the Vapotherm in place. CHEST: Right anterior thoracostomy tube. Expansion although diminished is symmetric. There may be some fine crackles at the bases but other significant focal adventitious breath sounds are identified. CARDIAC: Mildly tachycardic but regular. Peripheral pulses are palpable. No edema. ABDOMEN: Soft with active bowel sounds. No convincing organomegaly or masses. EXTREMITIES: No cyanosis or clubbing. NEUROLOGIC: She is awake, alert and appropriate. PSYCHIATRIC: Normal mood and affect. LABORATORY DATA: White blood cell count 10.2, hemoglobin is 11.3, platelet count is 345,000, 86% segs, 3% bands today. Sodium 142, potassium 4.4, chloride 103, CO2 34, BUN 29, creatinine 0.25. MEDICATION LIST: Reviewed. She remains on prophylactic Bactrim. She was on Vancomycin as well as Cefepime for her chronic right lower lobe pneumonia. No other new culture data. IMPRESSION: 1. Necrotizing pneumonia of right lower lobe, now with BP fistula. 2. Chronic synchronous respiratory failure, multifactorial. 3. Post COVID pneumonia with residual fibrosis. 4. High risk medication/steroids. 5. PCP prophylaxis. 6. Spontaneous right pneumothorax with BP fistula. RECOMMENDATIONS: At this point, I am in agreement with the current antimicrobials. I had a long discussion this morning with Dr. Pena from Thoracic Surgery regarding her BP fistula. At this point, we will continue to use noninvasive support as she tolerates. Unfortunately, she has much more difficulties with anxiety with it. I believe we may need to make some adjustments in the pressures to help her with flow rates and comfort once she is willing to go back on it. She is anxious to continue Physical Therapy and I do believe this is a major stepping stone towards any sort of progress that may be in her future. At this point, certainly the size of her air leak presents a real problem for her. She certainly would be extremely high risk for a thoracotomy as I do not believe she would adequately tolerate one lung anesthesia. I do not believe that she would do well achieving postprocedural extubation at this time point either. I am in agreement with continuing her antimicrobials. We will attempt to get her condition as best we can. I would pay special attention to her fluid status. At this point, she remains in generally I believe critically ill and her prognosis is quite guarded at best in view of the above as there is a high potential for further compromise. She will be followed as needed. Further recommendations will be made in the progress records as new information becomes available.
--- NOTE | 2020-11-08 11:36 | IPN ---
PROGRESS NOTE DATE: 11/08/2020 SUBJECTIVE: Yesterday afternoon, Ms. Kumari became more short of breath and a chest x-ray showed her to have a significant pneumothorax. This was in conjunction with developing an air leak. The chest tube was then put back to -20 cm water suction and still the chest x-ray showed a pneumothorax and therefore, it was increased to 40. Subsequent chest x-ray showed the lung again fully expanded to the chest wall. This morning, she is breathing a lot better and is quite comfortable on 40 cm of suction. Pain is being fairly well-controlled at the chest tube insertion site. OBJECTIVE: VITAL SIGNS: Show a T-max of 98.9 with a heart rate that ranges between 94 and 93 in sinus rhythm. Respiratory rate of 26 to 18 without the use of accessory muscles who is 94% to 96% saturated on 100% FiO2 on a Vapotherm of 20 L/min. Her blood pressure is ranging between 137/73 to 118/69. INTAKE AND OUTPUT: Over the past 24 hours has been recorded as 920 in and 475 out for a positivity of 445 mL. She has put 50 mL out the chest tube and there is now a rolling air leak. Weight today is 104.1 kg compared to 103.7 kg yesterday. RESPIRATORY: Her lungs shows only a short inspiratory phase. I do not hear wheezes, rhonchi, or rales, however, during that short inspiratory phase. Percussion note is full to the diaphragm. CARDIAC: Without murmurs, clicks, gallops, or rubs. I cannot feel her PMI. S1 and S2 are normal. ABDOMEN: Soft and nontender. Bowel sounds are positive. There is no hepatomegaly. No CVA tenderness. EXTREMITIES: Show no pretibial edema. No calf tenderness. No differential swelling of the upper extremities. SKIN: Warm, dry, and perfused without cyanosis or mottling, including that of the nail beds and knees. NECK: Supple. There is no jugular venous distention. No subcutaneous emphysema. Trachea is midline. MOUTH: Shows her mucous membranes to be pink and moist. Lips and commisures are without lesions and no thrush. EYES: Show her pupils equal and reactive. Extraocular muscles are intact. Sclerae nonicteric. NEUROLOGIC: Shows II through XII intact. Normal gross motor, gross sensation intact. Gait is not tested. PSYCHIATRIC: Shows her to be awake, alert, and oriented x3 with appropriate mood and affect and conversational. LABORATORY DATA: Her white count today is 10.2 with hemoglobin and hematocrit of 11.3 and 36.7 unchanged from yesterday with a platelet count of 345,000 and stable. Differential shows 86% neutrophils, 3% bands, 6% lymphocytes, and 2% monocytes. She also has additionally 2% metamyelocytes and 1 monocyte. Her chemistries show essentially normal electrolytes except for a marginally elevated total CO2 of 34. BUN and creatinine are 29 and 0.25 respectively with a glucose of 210 and a calcium of 9.2. There were no blood gases done yesterday. IMAGING DATA: Her chest x-ray is still pending today. Chest x-ray final yesterday at 8 o'clock showed the lung fully expanded to the chest wall. It is flipped left to right and presented in a slightly confusion fashion. Costophrenic angles are sharp. She still has the diffuse bilateral infiltrates. There is no subcutaneous emphysema. IMPRESSION: 1. Spontaneous pneumothorax right side. 2. Hypoxic respiratory failure. 3. Necrotizing pneumonia. 4. COVID earlier in the spring. 5. Post-COVID fibrosis. 6. Status post incarcerated incisional hernia repaired 09/02/2020. 7. 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 PLAN AND DISCUSSION: I was hoping that the chest tube would remain in prophylactically. The scenario for which it was maintained has now occurred with a bronchopleural fistula probably from her necrotic pneumonia. This may be a terminal worker problem until she heals. I certainly have no enthusiasm to take her to the operating room for her bronchopleural fistula at this point in time. The chest tube may need to remain in place for weeks. She is currently on cefepime as an antibiotic. There are no recent culture results.
--- NOTE | 2020-11-08 19:55 | IPNPDOC ---
Subjective Date Seen The patient was seen on 11/08/20. Subjective Chief Complaint/HPI Mrs. Jordan is a 50 year old female who is here with acute hypoxemic respiratory failure 2/2 ARDS 2/2 COVID 19, necrotizing pneumonia, and incar cerated incisional hernia. Overnight, she required 40cm of suction for her chest tube. This morning, she was feeling better than last night. Still has chest tenderness from the surgical site and dyspnea. Objective Physical Examination General Exam: Positive: Alert, Cooperative Eye Exam: Negative: Sclera icteric ENT Exam: Positive: Atraumatic Chest Exam: Positive: Clear to auscultation Heart Exam: Positive: Rate Normal Abdomen Exam: Positive: Normal bowel sounds, Soft, Tenderness (right side) Extremity Exam: Positive: Other Neuro Exam: Positive: Normal Speech Psych Exam: Positive: Anxiety Assessment /Plan Assessment Mrs. Jordan is a 50 year old female who is here with acute hypoxemic respiratory failure 2/2 ARDS 2/2 COVID 19 and incarcerated incisional hernia. She has been hospitalized over a month and will require rehab. When here oxygen requirements are lower, she can be placed to rehab. Continues with Solumedrol 15mg q12h and Lovenox for IPAH. Encourage use of IS. Patient will need to use the BIPAP/CPAP as much as possible to improve her aeration. Patient has been on steroids for more than a month. Patient will be started on PCP prophylaxis. Patient have been have right sided pain. CT angio chest was negative for PE. Dr. Chan looked at this CT. Combined with the patient's pain, patient most likely has right lower lobe pneumonia with necrosis. Patient on IV cefepime/ On evening of 11/05/2020, patient developed right pneumothorax. Dr. Pena emergently inserted chest tube. Plan/VTE VTE Prophylaxis Ordered?: Yes Plan 1. Acute hypoxemic respiratory failure 2/2 ARDS 2/2 COVID-19 -Acute COVID-19 has resolved. Patient has completed treatment with tocilizumab, remdesivir, and decadron. -Patients hypoxia is multifactorial. 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 She is on solumedrol 15 mg IV q12. PCP prophylaxis with Bactrim 1DS qD -Pulmonary medicine has been consulted and is following intermittently. -She is continued on full dose Lovenox for possible PE. She had not received a CTA initially given the severity of her hypoxia. She has shown improvement. She does still desaturate with movement although not as significantly. Could consider performing CTA as she may be able to tolerate. This would help guide the duration of her anticoagulation therapy. Although she likely has pulmonary hypertension given her severe hypoxia and therefore would benefit from anticoagulation regardless -Will defer duration of anticoagulation to Pulmonary medicine in regards to whether she will need life long -Patient will need to use BIPAP/CPAP as much as possible to help expand lungs. 2. Acute hypoxemic respiratory failure 2/2 hospital acquired pneumonia with necrosis -Dr. Chan looked at the CT image, the bullae may be necrosis. Patient also had pleuritic chest pain supporting the idea of necrotic pneumonia -Patient started on Cefepime day 8 -MRSA screen negative (Had 5 days of Vancomycin) 3. Morbilliform Rash -thought to be 2/2 bactrim, improved after DC. 4. Sinus Tachycardia -Patient continues to be in sinus tachycardia. Likely secondary to hypoxia. Echocardiogram has resulted without any significant findings. Her tachycardia is resolving. Her HR is currently 100-110 improved from 130 -Continue Lopressor 50mg BID and Cardizem 60mg q6hr 5. Transient Atrial fibrillation -Patient has remained in sinus. Was noted to have an episode of atrial fibrillation earlier in her hospitalization likely driven by hypoxia 6. Hematuria -Has resolved. Patient is on full dose anticoagulation. Will continue to monitor 7. JAQUELINE -Patient is currently on Bilevel 8. Incarcerated Incisional Hernia -s/p surgical correction on 09/02/2020 -Healing well. No acute complications 9. Physical Deconditioning/Debility -Patient has an extended hospital stay of over 1 month with critical illness. She is severely debilitated. She is working with physical therapy. She will need snf rehab pending clinical improvement. 10 Constipation -Bowel regimen ordered 11. GI prophylaxis -Protonix 12. DVT prophylaxis -Lovenox 13. Right pneumothorax -Dr. Pena following, recommendations appreciated -Chest tube inserted on 11/05/2020 -Okay for PT and CPAP DISPOSITION: Pending improvement in oxygen requirements. Continue to encourage use of CPAP. VS, I&O, 24H, Fishbone Vital Signs/I&O Vital Signs Date Time Temp Pulse Resp B/P (MAP) Pulse Ox O2 Delivery O2 Flow Rate FiO2 11/08/20 18:32 97 133/68 6/7/21 15:33 96.5 24 90 HVNI-Vapotherm 20.0 100 I&O- Last 24 Hours up to 6 AM 11/08/20 06:00 Intake Total 920 ml Output Total 650 ml Balance 270 ml Laboratory Data 24H LABS Laboratory Tests 2 11/07/20 20:55: Bedside Glucose (Misc Panel) 181H 11/08/20 05:03: Immature Granulocyte % (Auto) , Neutrophils (%) (Auto) , Nucleated Red Blood Cells % (auto) 0.2H, Neutrophils 86H, Band Neutrophils 3, Lymphocytes (Manual) 6L, Monocytes (Manual) 2, Metamyelocytes 2H, Myelocytes 1H, Hypochromasia 1+, Anisocytosis 1+, Macrocytosis 1+, Platelet Estimate DECREASED, Clumped Platelets SMALL AMT, Anion Gap 5L, Glomerular Filtration Rate > 60.0, Calcium Level 9.2 CBC/BMP Laboratory Tests 11/08/20 05:03 Microbiology Microbiology 10/31/20 Blood Culture - Final, Complete NO GROWTH AFTER 5 DAYS 10/31/20 Blood Culture - Final, Complete NO GROWTH AFTER 5 DAYS JACINDA THOMASON DO Nov 08, 2020 19:55
[2020-11-08] MEDS: SERTRALINE HCL 25 MG TABLET PO SCH (20:51)
[2020-11-08] MEDS: **NOTE PATIENT COMMENT** MISC XX SCH (20:54)
[2020-11-09] VITALS (30 sets, daily range): BP systolic 115–140; BP diastolic 63–76; O2SAT 90–98
[2020-11-09] MEDS: KETOROLAC 30 MG/ML 1ML VIAL IV SCH ×4 (00:18→17:43)
[2020-11-09] MEDS: LEVALBUTEROL 1.25 MG/0.5 ML CONCENTRATE NEB NEB SCH ×4 (02:01→19:23)
[2020-11-09] MEDS: CEFEPIME HCL 2 GM in D5W MINI-BAG PLUS 50 ML IV SCH ×3 (03:45→21:18)
[2020-11-09] MEDS: SODIUM CHLORIDE 0.9% INJ 10 ML SYR IV SCH ×2 (04:50→17:44)
[2020-11-09] MEDS: ALPRAZolam 0.5 MG TAB PO SCH ×4 (04:51→17:43)
[2020-11-09 05:07] LABS: BASO # 0.1 10^3/uL (0.0-0.2); BASO % 0.9 % (0.0-1.0); HEMATOCRIT 37.4 % (36.0-47.0); HEMOGLOBIN 11.7 g/dl (12.0-15.5); LYMPH # 0.7 10^3/uL (1.5-5.0); LYMPH % 7.1 % (24.0-44.0); MEAN CORPUSCULAR HEMOGLOBIN 31.1 pg (27.0-33.0); MEAN CORPUSCULAR HGB CONC 31.3 g/dl (32.0-36.5); MEAN CORPUSCULAR VOLUME 99.5 fl (80.0-96.0); MONO # 0.4 10^3/uL (0.0-0.8); MONO % 3.5 % (2.0-8.0); NEUTROPHILS # 8.6 10^3/uL (1.5-8.5); NEUTROPHILS % 83.7 % (36.0-66.0); PLATELET COUNT, AUTOMATED 399 10^3/uL (150-450); RED BLOOD COUNT 3.76 10^6/uL (4.00-5.40); WHITE BLOOD COUNT 10.3 10^3/uL (4.0-10.0)
[2020-11-09 05:35] LABS: BLOOD UREA NITROGEN 29 MG/DL (7-18); CALCIUM LEVEL 9.5 MG/DL (8.5-10.1); CARBON DIOXIDE LEVEL 33 MEQ/L (21-32); CHLORIDE LEVEL 104 MEQ/L (98-107); GLOMERULAR FILTRATION RATE > 60.0 (>51); GLUCOSE, FASTING 218 MG/DL (70-100); POTASSIUM SERUM 4.4 MEQ/L (3.5-5.1); SODIUM LEVEL 140 MEQ/L (136-145)
[2020-11-09] MEDS: IPRATROPIUM 0.5MG/ALBUTEROL 2.5MG INH SOL UD 3ML (DUONEB) NEB SCH ×4 (07:14→19:23)
[2020-11-09] MEDS: HumaLOG INSULIN (NovoLOG) PER UNIT SC SCH ×4 (08:08→21:00)
[2020-11-09] MEDS: methylPREDNISolone 40MG 1ML VIAL IV SCH ×2 (08:09→21:18)
[2020-11-09] MEDS: LIDOCAINE 5% (LIDODERM) PATCH TD SCH (08:09)
[2020-11-09] MEDS: ANALGESIC BALM CRM 3OZ TOP SCH ×4 (08:09→21:20)
[2020-11-09] MEDS: ENOXAPARIN 100MG/1ML SYRINGE (J1650 PER 10MG) SC SCH ×2 (08:09→21:19)
[2020-11-09] MEDS: PANTOPRAZOLE 40MG TAB (PROTONIX) PO SCH ×2 (08:10→21:19)
[2020-11-09] MEDS: guaiFENesin ER 600 MG TAB PO SCH ×2 (08:10→21:19)
[2020-11-09] MEDS: METOPROLOL TART 25 MG TABLET PO SCH ×2 (08:10→21:19)
[2020-11-09] MEDS: BACTRIM 160MG/800MG DS TAB PO SCH (08:10)
[2020-11-09] MEDS: DOCUSATE SODIUM 100MG CAPSULE PO SCH ×2 (08:12→21:19)
[2020-11-09] MEDS: MOM 30ML SUSPENSION UDC PO SCH (08:12)
--- NOTE | 2020-11-09 09:23 | REP ---
INDICATION: pneumothorax. COMPARISON: 11/08/2020. TECHNIQUE: Single portable AP view of the chest was performed. FINDINGS: Right chest tube remains in place, unchanged. Right arm PICC line is again noted unchanged. There is a tiny right pneumothorax. Diffuse bilateral infiltrates appear unchanged. The heart a and mediastinum appear unchanged. IMPRESSION: Essentially stable exam as discussed above. <Electronically signed by Ruy Taylor > 11/09/20 0919
--- NOTE | 2020-11-09 10:15 | IPN ---
PROGRESS NOTE DATE: 11/09/2020 SUBJECTIVE: I again attended Senia Kumari here in the Progressive Care Unit. Patient has been examined and chart reviewed. I spoke at length with the nurse at the bedside. OBJECTIVE: VITAL SIGNS: T-max overnight 97.3, blood pressure 120s to 140s, heart rate generally in the 80s with occasional ectopy, respiratory rate between 18 and 24 with no accessory muscle use. Current pulse oximetry 97% on 25 liter Vapotherm. Currently, chest tube is without air leak. The nurse reports it is intermittent today. GENERAL: She is comfortable. Pupils reactive. Sclera clear. Trachea is midline. CHEST: Symmetric expansion. Her faint crackles are unchanged. CARDIAC: Generally regular. No gallop. peripheral pulses palpable. Trace edema. ABDOMEN: Obese, soft, positive bowel sounds. No obvious organomegaly or masses. EXTREMITIES: No cyanosis or clubbing. NEUROLOGIC: She is grossly nonfocal and is quite appropriate. Chest x-ray shows a tiny rim of residual pneumothorax just above the diaphragm at least to my review. LABORATORY DATA: Most recent laboratories showed a white blood cell count of 10.3, hemoglobin 11.7, platelet count of 399,000. Sodium 140, potassium 4.4, chloride 104, CO2 33, BUN 29, creatinine 0.2, glucose 218. IMPRESSION: 1. Hypoxemic respiratory failure, multifactorial. 2. COVID pneumonia with residual fibrosis. 3. Right sided pneumothorax, spontaneous with BP fistula. 4. Necrotizing pneumonia right lower lobe. At this point, her oxygenation is reasonable. She is still very intolerant of noninvasive support, mainly on the basis of anxiety. My hope is that she can heal her BP fistula as she would not tolerate one lung anesthesia. I am in agreement with her current antimicrobials. We will continue as outlined above. She does cooperate with therapy. Further recommendations will be made in the progress record as new information becomes available.
--- NOTE | 2020-11-09 12:23 | IPN ---
PROGRESS NOTE DATE: 11/09/2020 Ms. Kumari is breathing at her baseline status. She is not feeling short of breath, although she does complain of some chest pain in the right chest. She still has a very large air leak. When I came in today to look at her Pleur-evac, the under water seal chamber had almost completely evaporated, and therefore we changed the Pleur-evac then and there. Her vital signs show a maximum temperature of 97.3 with a heart rate that ranges between 89-80 in a sinus rhythm, respiratory rate of 18-24 without the use of accessory muscles, who is 91%-97% saturated on 100% FiO2 on 20 liter per minute VapoTherm. Blood pressure is ranging between 140/68 to 127/66. Her intake and output for the past 24 hours has been recorded as 1300 in and 675 out, for a positivity of 625 mL. She has put nothing out of the chest tube. Weight today is 105 kg compared to 104.1 kg yesterday. PHYSICAL EXAMINATION: Her lungs show a very short inspiratory phase with some faint crackles throughout. Percussion notes are full to the diaphragm. Cardiac exam is without murmurs, clicks, gallops, or rubs. I cannot feel her point of maximal impulse (PMI). S1 and S2 are normal. Abdomen is soft and nontender. Bowel sounds are positive. There is no hepatomegaly. No costovertebral angle (CVA) tenderness. Extremities show no pretibial edema, no calf tenderness, no differential swelling of the upper extremities. Skin is warm, dry, and perfused without cyanosis or mottling, including that of the nailbeds and knees. Neck is supple. There is no jugular venous distention. No subcutaneous emphysema. Trachea is midline. Mouth shows the mucous membranes to be pink and moist. Lips and commissures without lesions. No thrush. Eyes show her pupils to be equal and reactive. Extraocular motion intact. Sclerae anicteric. Neurologic shows II-XII intact. Normal gross motor, gross sensation intact. Gait is not tested. Psychiatric shows her to be awake, alert, and oriented times three with appropriate mood and affect and conversational. Her white count today is 10.3, unchanged from yesterday, with a hemoglobin and hematocrit of 11.7 and 37.4, essentially unchanged from yesterday. Platelet count is 399, and differential shows 83% neutrophils, 7% monocytes, 3% lymphocytes. There are no immature forms or toxic granulations. Chemistries show almost normal electrolytes with a marginally elevated total CO2 of 33. Glucose is 218 with a calcium of 9.5. There are no blood gases on her today. Her chest x-ray shows the lung fully expanded to the chest wall. Chest tube is in good place. She still has the bilateral infiltrates. Costophrenic angles are sharp. It is done portably without a lateral view. IMPRESSION: 1. Spontaneous pneumothorax, right side. 2. Hypoxic respiratory failure. 3. Necrotizing pneumonia. 4. Bronchopleural fistula. 5. COVID earlier in the spring. 6. Post COVID fibrosis. 7. Status post incarcerated incisional hernia 09/02/2020. PLAN AND DISCUSSION: I will decrease her chest tube suction to 20 today. We need to keep a good eye on the underwater seal level, as it will evaporate with her air leak. I cannot predict how long this air leak is going to continue, but I suspect it is secondary to her underlying necrotic lung process.
[2020-11-09] MEDS: SODIUM CHLORIDE 0.9% INJ 10 ML SYR IV PRN (13:24)
[2020-11-09] MEDS: ONDANSETRON 4MG/2ML VIAL IV PRN (13:24)
--- NOTE | 2020-11-09 20:45 | IPNPDOC ---
Date Seen The patient was seen on 11/09/20. Progress Note SUBJECTIVE: Mrs. Jordan is a 50 year old female who is here with acute hypoxemic respiratory failure 2/2 ARDS 2/2 COVID 19, necrotizing pneumonia, and incarcerated incisional hernia. Overnight, she required 40cm of suction for her chest tube. This morning, she was feeling better than last night. Still has chest tenderness from the surgical site and dyspnea. OBJECTIVE PHYSICAL EXAMINATION: VITAL SIGNS: please see below General: NAD, comfortable HEENT: PERRLA, EOMI, sclerae clear Neck: supple, normal ROM, no JVD Respiratory: lungs CTAB, no wheeze, no rales, no crackles. R chest tube in nico ce. CVS: RRR, normal S1, S2, no murmurs Abdo: soft, no masses, no hepatosplenomegaly, BS+, no rebound tenderness Extremities: no edema, pulses 2+ MSK: no joint deformities, normal ROM Neuro: no focal neuro deficits, moving all 4 extremities, CN2-12 intact. Strength 5/5 in all 4 extremities. No nystagmus. Psych: calm, cooperative, AAO x 3 LABORATORY DATA, IMAGING STUDIES, MICROBIOLOGY: Please see below. DVT prophylaxis ordered?: ASSESSMENT AND PLAN: Mrs. Jordan is a 50 year old female who is here with acute hypoxemic respiratory failure 2/2 ARDS 2/2 COVID 19 and incarcerated incisional hernia. She has been hospitalized over a month and will require rehab. When here oxygen requirements are lower, she can be placed to rehab. Continues with Solumedrol 15mg q12h and Lovenox for IPAH. Encourage use of IS. Patient will need to use the BIPAP/CPAP as much as possible to improve her aeration. Developed R sided pneumothorax, chest tube placed by Dr. Pena on 11/05/20. PROBLEMS: 1. Acute hypoxemic respiratory failure 2/2 ARDS 2/2 COVID-19 -Acute COVID-19 has resolved. Patient has completed treatment with tocilizumab, remdesivir, and decadron. -Patients hypoxia is multifactorial. 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 She is on solumedrol 15 mg IV q12. PCP prophylaxis with Bactrim 1DS qD -Pulmonary medicine has been consulted and is following intermittently. -She is continued on full dose Lovenox for possible PE. She had not received a CTA initially given the severity of her hypoxia. She has shown improvement. She does still desaturate with movement although not as significantly. Could consider performing CTA as she may be able to tolerate. This would help guide the duration of her anticoagulation therapy. Although she likely has pulmonary hypertension given her severe hypoxia and therefore would benefit from anticoagulation regardless -Will defer duration of anticoagulation to Pulmonary medicine in regards to whether she will need life long -Patient will need to use BIPAP/CPAP as much as possible to help expand lungs. 2. Acute hypoxemic respiratory failure 2/2 hospital acquired pneumonia with necrosis -Dr. Chan looked at the CT image, the bullae may be necrosis. Patient also had pleuritic chest pain supporting the idea of necrotic pneumonia -Patient started on Cefepime day 8 -MRSA screen negative (Had 5 days of Vancomycin) 3. Morbilliform Rash -thought to be 2/2 bactrim, improved after DC. 4. Sinus Tachycardia -Patient continues to be in sinus tachycardia. Likely secondary to hypoxia. Echocardiogram has resulted without any significant findings. Her tachycardia is resolving. Her HR is currently 100-110 improved from 130 -Continue Lopressor 50mg BID and Cardizem 60mg q6hr 5. Transient Atrial fibrillation -Patient has remained in sinus. Was noted to have an episode of atrial fibrillation earlier in her hospitalization likely driven by hypoxia 6. Hematuria -Has resolved. Patient is on full dose anticoagulation. Will continue to monitor 7. JAQUELINE -Patient is currently on Bilevel 8. Incarcerated Incisional Hernia -s/p surgical correction on 09/02/2020 -Healing well. No acute complications 9. Physical Deconditioning/Debility -Patient has an extended hospital stay of over 1 month with critical illness. She is severely debilitated. She is working with physical therapy. She will need longterm rehab pending clinical improvement. 10 Constipation -Bowel regimen ordered 11. GI prophylaxis -Protonix 12. DVT prophylaxis -Lovenox 13. Right pneumothorax -Dr. Pena following, recommendations appreciated -Chest tube inserted on 11/05/2020 -Okay for PT and CPAP - continues to have air leak, reduced [id number] to 20 mm. leak likely 2/2 necrotizing pneumonia DISPOSITION: Pending improvement in oxygen requirements. Continue to encourage use of CPAP. VS, I&O, 24H, Fishbone Vital Signs/I&O Vital Signs Date Time Temp Pulse Resp B/P (MAP) Pulse Ox O2 Delivery O2 Flow Rate FiO2 11/09/20 20:00 30.0 100 11/09/20 20:00 96.8 103 28 115/63 (80) 93 HVNI-Vapotherm I&O- Last 24 Hours up to 6 AM 11/09/20 06:00 Intake Total 1350 ml Output Total 750 ml Balance 600 ml Laboratory Data 24H LABS Laboratory Tests 2 11/08/20 20:39: Bedside Glucose (Misc Panel) 175H 11/09/20 04:58: Immature Granulocyte % (Auto) 4.8H, Neutrophils (%) (Auto) 83.7H, Lymphocytes (%) (Auto) 7.1L, Monocytes (%) (Auto) 3.5, Eosinophils (%) (Auto) 0.0, Basophils (%) (Auto) 0.9, Neutrophils # (Auto) 8.6H, Lymphocytes # (Auto) 0.7L, Monocytes # (Auto) 0.4, Eosinophils # (Auto) 0.0, Basophils # (Auto) 0.1, Nucleated Red Blood Cells % (auto) 0.0, Anion Gap 3L, Glomerular Filtration Rate > 60.0, Calcium Level 9.5 11/09/20 12:03: Bedside Glucose (Misc Panel) 189H 11/09/20 12:30: Coronavirus (COVID-19)(PCR) NEGATIVE 11/09/20 16:06: Bedside Glucose (Misc Panel) 184H CBC/BMP Laboratory Tests 11/09/20 04:58 Microbiology Microbiology 10/31/20 Blood Culture - Final, Complete NO GROWTH AFTER 5 DAYS 10/31/20 Blood Culture - Final, Complete NO GROWTH AFTER 5 DAYS JUANA TAYLOR MD Nov 09, 2020 20:45
[2020-11-09] MEDS: SERTRALINE HCL 25 MG TABLET PO SCH (21:19)
[2020-11-09] MEDS: **NOTE PATIENT COMMENT** MISC XX SCH (21:20)
[2020-11-10] VITALS (24 sets, daily range): BP systolic 104–125; BP diastolic 57–69; O2SAT 86–98
[2020-11-10] MEDS: KETOROLAC 30 MG/ML 1ML VIAL IV SCH ×4 (00:31→18:04)
[2020-11-10] MEDS: PERCOCET 5MG/325MG TAB PO PRN (01:37)
[2020-11-10] MEDS: LEVALBUTEROL 1.25 MG/0.5 ML CONCENTRATE NEB NEB SCH ×4 (01:45→19:20)
[2020-11-10] MEDS: CEFEPIME HCL 2 GM in D5W MINI-BAG PLUS 50 ML IV SCH ×3 (03:52→20:26)
[2020-11-10] MEDS: ACETAMINOPHEN TAB 650MG DOSE (2X325MG) PO PRN (03:55)
[2020-11-10] MEDS: ALPRAZolam 0.5 MG TAB PO SCH ×4 (05:16→18:03)
[2020-11-10] MEDS: SODIUM CHLORIDE 0.9% INJ 10 ML SYR IV SCH ×2 (05:16→18:05)
[2020-11-10 05:36] LABS: HEMATOCRIT 38.2 % (36.0-47.0); HEMOGLOBIN 11.8 g/dl (12.0-15.5); MEAN CORPUSCULAR HEMOGLOBIN 31.2 pg (27.0-33.0); MEAN CORPUSCULAR HGB CONC 30.9 g/dl (32.0-36.5); MEAN CORPUSCULAR VOLUME 101.1 fl (80.0-96.0); PLATELET COUNT, AUTOMATED 452 10^3/uL (150-450); RED BLOOD COUNT 3.78 10^6/uL (4.00-5.40); WHITE BLOOD COUNT 11.4 10^3/uL (4.0-10.0)
[2020-11-10 05:54] LABS: LYMPHOCYTES 4 % (16-44); MONOCYTES 2 % (0-5); MYELOCYTES 1 % (0-0); NEUTROPHILS 92 % (28-66); PLATELET CLUMPS SMALL AMT; PLATELET ESTIMATE INCREASED (NORMAL)
[2020-11-10 05:56] LABS: ANISOCYTOSIS 1+; HYPOCHROMASIA 1+
[2020-11-10 06:04] LABS: BLOOD UREA NITROGEN 25 MG/DL (7-18); CALCIUM LEVEL 8.9 MG/DL (8.5-10.1); CARBON DIOXIDE LEVEL 36 MEQ/L (21-32); CHLORIDE LEVEL 104 MEQ/L (98-107); CREATININE FOR GFR 0.23 MG/DL (0.55-1.30); GLOMERULAR FILTRATION RATE > 60.0 (>51); GLUCOSE, FASTING 206 MG/DL (70-100); POTASSIUM SERUM 5.2 MEQ/L (3.5-5.1); SODIUM LEVEL 141 MEQ/L (136-145)
[2020-11-10] MEDS: IPRATROPIUM 0.5MG/ALBUTEROL 2.5MG INH SOL UD 3ML (DUONEB) NEB SCH ×2 (08:00→12:00)
[2020-11-10] MEDS: HumaLOG INSULIN (NovoLOG) PER UNIT SC SCH ×4 (08:22→20:37)
[2020-11-10] MEDS: ENOXAPARIN 100MG/1ML SYRINGE (J1650 PER 10MG) SC SCH ×2 (08:22→20:25)
[2020-11-10] MEDS: methylPREDNISolone 40MG 1ML VIAL IV SCH ×2 (08:22→20:26)
[2020-11-10] MEDS: MOM 30ML SUSPENSION UDC PO SCH (08:23)
[2020-11-10] MEDS: LIDOCAINE 5% (LIDODERM) PATCH TD SCH (08:23)
[2020-11-10] MEDS: PANTOPRAZOLE 40MG TAB (PROTONIX) PO SCH ×2 (08:23→20:26)
[2020-11-10] MEDS: guaiFENesin ER 600 MG TAB PO SCH ×2 (08:23→20:28)
[2020-11-10] MEDS: BACTRIM 160MG/800MG DS TAB PO SCH (08:23)
[2020-11-10] MEDS: DOCUSATE SODIUM 100MG CAPSULE PO SCH ×2 (08:23→20:26)
[2020-11-10] MEDS: METOPROLOL TART 25 MG TABLET PO SCH ×2 (08:24→20:28)
[2020-11-10] MEDS: ANALGESIC BALM CRM 3OZ TOP SCH ×4 (08:24→20:30)
--- NOTE | 2020-11-10 08:28 | REP ---
INDICATION: pneumothorax COMPARISON: 11/09/2020 TECHNIQUE: Portable AP view of the chest FINDINGS: Right-sided chest tube in stable position and a small to moderate right pneumothorax has increased. Diffuse bilateral airspace disease unchanged. No new acute process identified. IMPRESSION: Right pneumothorax increased from prior examination. <Electronically signed by Israel Holguin > 11/10/20 0899
--- NOTE | 2020-11-10 10:39 | IPN ---
PROGRESS NOTE DATE: 11/10/2020 SUBJECTIVE: Ms. Kumari still has an air leak. Yesterday I turned her suction down to 20 and today's x-ray show her lung from the chest wall and I have therefore turned her suction back up to 40. After returning the suction to 40, she is did feel better as far as her breathing is concerned. OBJECTIVE: VITAL SIGNS: Show a T-max of 97.1 with a heart rate that ranges between 82 to 89 in sinus rhythm. Respiratory rate of 20 to 21 without the use of accessory muscles who is 93% to 97% saturated on 30 liter flow of 100% on Vapotherm. Her blood pressure is ranging between 125/64 to 117/58. INTAKE AND OUTPUT: Over the past 24 hours has been recorded as 1290 in and 1400 out for a negativity of 110 mL. Nothing is recorded out the chest tube and she still has the rolling air leak. Weight today is 104.8 kg compared to 105 kg yesterday. RESPIRATORY: After turning the suction up, she has equal breath sounds on either side. I do not hear rhonchi or rales today. I do hear what I think is bronchophony particularly on the right side from her high flow oxygen. These are transmitted air sounds. I do not hear the gurgling of a BVF. Percussion note is full to the diaphragm. CARDIAC: Without murmurs, clicks, gallops, or rubs. I cannot feel her PMI. S1 and S2 are normal. ABDOMEN: Soft and nontender. Bowel sounds are positive. There is no hepatomegaly. No CVA tenderness. EXTREMITIES: Show no pretibial edema. No calf tenderness. No differential swelling of the upper extremities. SKIN: Warm, dry, and perfused without cyanosis or mottling, including that of the nail beds and knees. NECK: Supple. There is no jugular venous distention. No subcutaneous emphysema. Trachea is midline. MOUTH: Shows her mucous membranes to be pink and moist. Lips and commisures are without lesions and no thrush. EYES: Show her pupils equal and reactive. Extraocular muscles are intact. Sclerae nonicteric. NEUROLOGIC: Shows II through XII intact. Normal gross motor, gross sensation intact. Gait is not tested. PSYCHIATRIC: Shows her to be awake, alert, and oriented x3 with appropriate mood and affect and conversational. LABORATORY DATA: Her white count today is 11.4 with hemoglobin and hematocrit of 11.8 and 38.2 respectively. Platelet count 452,000 and stable. Differential shows 92% neutrophils, 1% bands, 4% lymphocytes, and 2% monocytes. She has 1 myelocyte. No toxic granulations are noted today. Her electrolytes show a potassium of 5.2 with a BUN and creatinine of 25 and 0.23 with a glucose of 206 and a calcium of 8.9. IMAGING DATA: Her chest x-ray is as described above with the lung from the chest wall on the right side. She still has the bilateral diffuse infiltrates. IMPRESSION: 1. Spontaneous pneumothorax right side. 2. Bronchopleural fistula. 3. Hypoxic respiratory failure. 4. Necrotizing pneumonia. 5. COVID early in the spring. 6. Post COVID fibrosis. 7. Status post incarcerated incisional hernia 09/02/2020. PLAN AND DISCUSSION: We are just now serving time in regard to waiting for this air leak to stop. It may be a prolonged course. I am not at all keen on taking her to the operating room to repair this surgically, as I do not think she would even tolerate one lung anesthesia. This is just going to be a waiting game until she heals her lung and heals the bronchopleural fistula.
--- NOTE | 2020-11-10 10:39 | IPN ---
[facility] PROGRESS NOTE DATE: 11/10/2020 SUBJECTIVE: I again attended Senia Kumari in the progressive care unit. The patient examined and chart reviewed. She is much more comfortable this morning. Awake, alert, appropriate, and sitting in bed. Chest x-ray this morning done while the chest tube was on -20 cm water suction shows recurrence of her pneumothorax and per Dr. Pena has been placed back to -40 cm of water. She clearly has a sizable air leak this morning. OBJECTIVE: VITAL SIGNS: T-max overnight 97.1, blood pressure 117 to 120s. Respiratory rate generally 18 to 24. Heart rate generally in the 80s with a sinus mechanism. Currently saturation 97% on 30 liter high flow Vapotherm. GENERAL APPEARANCE: She is awake, alert, and appropriate. Mildly tachypneic at the moment with conversation. HEENT: Pupils react. Sclerae clear. Trachea is midline. CHEST: Shows symmetric expansion. Surprisingly no significant crepitus. Right anterior chest tube is in place with dressing intact. Good bilateral air entry. I do not appreciate a rub. No focal adventitious breath sounds other than some persistent crackles bilaterally. CARDIAC: Distant, but regular. Peripheral pulses palpable. No edema. ABDOMEN: Obese and soft with active bowel sounds. No convincing organomegaly or mass. EXTREMITIES: No cyanosis or clubbing. NEUROLOGIC: She is awake, alert, and appropriate. PSYCHIATRIC: Normal mood and affect. LABORATORY DATA: Shows white blood cell count of 11.4, hemoglobin 11.8, platelet count 452,000, segs 92%, bands 1%. Sodium 141, potassium 5.2, chloride 104, CO2 of 36, BUN 25, creatinine 0.23. IMPRESSION: 1. Hypoxemic, multifactorial. 2. Spontaneous pneumothorax. 3. Necrotizing pneumonia right lower lobe. 4. COVID pneumonia with suspected fibrosis. PLAN: At this point her biggest issue is her bronchopleural (BP) fistula. Certainly we wish to avoid operative intervention as she is not at all a candidate for undergoing anesthesia, which she would tolerate very poorly. I did discuss this at length with her. Otherwise, I am in full agreement with her current plan and management. She will be followed as needed while she is here in the hospital. Further recommendations will be made in the progress record as new information becomes available.
[2020-11-10] MEDS: ONDANSETRON 4MG/2ML VIAL IV PRN (12:41)
--- NOTE | 2020-11-10 18:47 | IPNPDOC ---
Date Seen The patient was seen on 11/10/20. Progress Note SUBJECTIVE:Mrs. Jordan was seen at bedside this morning. She appears to be in good spirits and is much more active today. She states that she slept well, and her breathing is more comfortable now. Her chest tube cotninues to have an air leak. Dr. Pena increased suction from -20 cm of water to -40cm. OBJECTIVE PHYSICAL EXAMINATION: VITAL SIGNS: please see below General: NAD, comfortable HEENT: PERRLA, EOMI, sclerae clear Neck: supple, normal ROM, no JVD Respiratory: persistent crackles at bilateral lung bases. Good air entry bilaterally. R anterior chest tube in ituy. CVS: RRR, normal S1, S2, no murmurs Abdo: soft, obese, present bowel sounds. Extremities: no edema, pulses 2+ MSK: no joint deformities, normal ROM Neuro: no focal neuro deficits, moving all 4 extremities, CN2-12 intact. Strength 5/5 in all 4 extremities. No nystagmus. Psych: calm, cooperative, AAO x 3 LABORATORY DATA, IMAGING STUDIES, MICROBIOLOGY: Please see below. DVT prophylaxis ordered?: ASSESSMENT AND PLAN: Mrs. Jordan is a 50 year old female who is here with acute hypoxemic respiratory failure 2/2 ARDS 2/2 COVID 19 and incarcerated incisional hernia. She has been hospitalized over a month and will require rehab. When here oxygen requirements are lower, she can be placed to rehab. Continues with Solumedrol 15mg q12h and Lovenox for IPAH. Encourage use of IS. Patient will need to use the BIPAP/CPAP as much as possible to improve her aeration. Developed R sided pneumothorax, R anterior chest tube placed by Dr. Pena on 11/05/20. PROBLEMS: # Acute hypoxemic respiratory failure 2/2 ARDS 2/2 COVID-19 -Acute COVID-19 has resolved. Patient has completed treatment with tocilizumab, remdesivir, and decadron. -Patients hypoxia is multifactorial. 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 She is on solumedrol 30 mg IV q12. PCP prophylaxis with Bactrim 1DS qD -Pulmonary medicine has been consulted and is following intermittently. -She is continued on full dose Lovenox for possible PE. She had not received a CTA initially given the severity of her hypoxia. CTA chest from 10/28/20 did not show a PE. -Will defer duration of anticoagulation to Pulmonary medicine in regards to whether she will need life long AC. -Patient will need to use BIPAP/CPAP as much as possible to help expand lungs. 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 Pena - not a surgical candidate, would not tolerate one lung anesthesia # Acute hypoxemic respiratory failure 2/2 hospital acquired pneumonia with necrosis -Dr. Chan looked at the CT image, the bullae may be necrosis. Patient also had pleuritic chest pain supporting the idea of necrotic pneumonia -Patient Cefepime day 10 -MRSA screen negative (Had 5 days of Vancomycin) #. Sinus Tachycardia -Patient continues to be in sinus tachycardia. Likely secondary to hypoxia. Echocardiogram has resulted without any significant findings. Her tachycardia is resolving. Her HR is currently 100-110 improved from 130 -Continue Lopressor 50mg BID and Cardizem 60mg q6hr # Transient Atrial fibrillation -Patient has remained in sinus. Was noted to have an episode of atrial fibrillation earlier in her hospitalization likely driven by hypoxia #. Hematuria -Has resolved. Patient is on full dose anticoagulation. Will continue to monitor #. JAQUELINE -Patient is currently on Bilevel #. Incarcerated Incisional Hernia -s/p surgical correction on 09/02/2020 -Healing well. No acute complications #. Physical Deconditioning/Debility -Patient has an extended hospital stay of over 1 month with critical illness. She is severely debilitated. She is working with physical therapy. 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 # Constipation -Bowel regimen ordered #. GI prophylaxis -Protonix #. DVT prophylaxis -Lovenox #. Right pneumothorax -Dr. Pena following, recommendations appreciated -Chest tube inserted on 11/05/2020 -Okay for PT and CPAP - continues to have air leak, reduced [id number] to 20 mm. leak likely 2/2 necrotizing pneumonia DISPOSITION: Pending improvement in oxygen requirements. Continue to encourage use of CPAP. VS, I&O, 24H, Fishbone Vital Signs/I&O Vital Signs Date Time Temp Pulse Resp B/P (MAP) Pulse Ox O2 Delivery O2 Flow Rate FiO2 11/10/20 18:04 98 112/65 11/10/20 18:00 86 Nasal Cannula 30.0 100 11/10/20 16:00 97.4 20 I&O- Last 24 Hours up to 6 AM 11/10/20 06:00 Intake Total 1410 ml Output Total 1606 ml Balance -196 ml Laboratory Data 24H LABS Laboratory Tests 2 11/09/20 21:17: Bedside Glucose (Misc Panel) 181H 11/10/20 05:19: Immature Granulocyte % (Auto) , Neutrophils (%) (Auto) , Nucleated Red Blood Cells % (auto) 0.3H, Neutrophils 92H, Band Neutrophils 1, Lymphocytes (Manual) 4L, Monocytes (Manual) 2, Myelocytes 1H, Hypochromasia 1+, Anisocytosis 1+, Macrocytosis 2+, Platelet Estimate INCREASED, Clumped Platelets SMALL AMT, Anion Gap 1L, Glomerular Filtration Rate > 60.0, Calcium Level 8.9 11/10/20 12:19: Bedside Glucose (Misc Panel) 152H 11/10/20 17:45: Bedside Glucose (Misc Panel) 259H CBC/BMP Laboratory Tests 11/10/20 05:19 Microbiology Microbiology 10/31/20 Blood Culture - Final, Complete NO GROWTH AFTER 5 DAYS 10/31/20 Blood Culture - Final, Complete NO GROWTH AFTER 5 DAYS JUNAA TAYLOR MD Nov 10, 2020 18:47
[2020-11-10] MEDS: SERTRALINE HCL 25 MG TABLET PO SCH (20:26)
[2020-11-10] MEDS: **NOTE PATIENT COMMENT** MISC XX SCH (20:30)
[2020-11-11] VITALS (16 sets, daily range): BP systolic 100–124; BP diastolic 56–75; O2SAT 85–99
[2020-11-11] MEDS: KETOROLAC 30 MG/ML 1ML VIAL IV SCH ×5 (00:26→23:55)
[2020-11-11] MEDS: ALPRAZolam 0.5 MG TAB PO SCH ×5 (00:26→23:54)
[2020-11-11] MEDS: LEVALBUTEROL 1.25 MG/0.5 ML CONCENTRATE NEB NEB SCH ×4 (02:13→20:07)
[2020-11-11] MEDS: CEFEPIME HCL 2 GM in D5W MINI-BAG PLUS 50 ML IV SCH ×3 (05:25→22:21)
[2020-11-11] MEDS: SODIUM CHLORIDE 0.9% INJ 10 ML SYR IV SCH ×2 (05:27→18:13)
[2020-11-11 06:18] LABS: BASO # 0.1 10^3/uL (0.0-0.2); BASO % 0.6 % (0.0-1.0); HEMATOCRIT 35.9 % (36.0-47.0); HEMOGLOBIN 11.1 g/dl (12.0-15.5); LYMPH # 0.7 10^3/uL (1.5-5.0); LYMPH % 5.6 % (24.0-44.0); MEAN CORPUSCULAR HEMOGLOBIN 30.7 pg (27.0-33.0); MEAN CORPUSCULAR HGB CONC 30.9 g/dl (32.0-36.5); MEAN CORPUSCULAR VOLUME 99.4 fl (80.0-96.0); MONO # 0.6 10^3/uL (0.0-0.8); MONO % 4.6 % (2.0-8.0); NEUTROPHILS # 11.2 10^3/uL (1.5-8.5); NEUTROPHILS % 84.7 % (36.0-66.0); PLATELET COUNT, AUTOMATED 392 10^3/uL (150-450); RED BLOOD COUNT 3.61 10^6/uL (4.00-5.40); WHITE BLOOD COUNT 13.2 10^3/uL (4.0-10.0)
[2020-11-11 06:46] LABS: BLOOD UREA NITROGEN 32 MG/DL (7-18); CALCIUM LEVEL 8.8 MG/DL (8.5-10.1); CARBON DIOXIDE LEVEL 36 MEQ/L (21-32); CHLORIDE LEVEL 102 MEQ/L (98-107); CREATININE FOR GFR 0.29 MG/DL (0.55-1.30); GLOMERULAR FILTRATION RATE > 60.0 (>51); GLUCOSE, FASTING 189 MG/DL (70-100); POTASSIUM SERUM 4.5 MEQ/L (3.5-5.1); SODIUM LEVEL 141 MEQ/L (136-145)
[2020-11-11] MEDS: PANTOPRAZOLE 40MG TAB (PROTONIX) PO SCH ×2 (08:13→22:28)
[2020-11-11] MEDS: methylPREDNISolone 40MG 1ML VIAL IV SCH ×2 (08:13→22:29)
[2020-11-11] MEDS: guaiFENesin ER 600 MG TAB PO SCH ×2 (08:14→22:27)
[2020-11-11] MEDS: BACTRIM 160MG/800MG DS TAB PO SCH (08:14)
[2020-11-11] MEDS: METOPROLOL TART 25 MG TABLET PO SCH ×2 (08:14→22:30)
[2020-11-11] MEDS: DOCUSATE SODIUM 100MG CAPSULE PO SCH ×2 (08:14→22:25)
[2020-11-11] MEDS: HumaLOG INSULIN (NovoLOG) PER UNIT SC SCH ×4 (08:15→22:28)
[2020-11-11] MEDS: LIDOCAINE 5% (LIDODERM) PATCH TD SCH (08:16)
[2020-11-11] MEDS: ENOXAPARIN 100MG/1ML SYRINGE (J1650 PER 10MG) SC SCH (08:16)
[2020-11-11] MEDS: ANALGESIC BALM CRM 3OZ TOP SCH ×4 (08:16→22:29)
[2020-11-11] MEDS: MOM 30ML SUSPENSION UDC PO SCH ×2 (08:17→09:00)
--- NOTE | 2020-11-11 08:48 | REP ---
INDICATION: pneumothorax. COMPARISON: Multiple the latest yesterday TECHNIQUE: Portable FINDINGS: The technique utilized in obtaining the radiograph has magnified the cardiac silhouette and accentuated the interstitial markings. The right-sided pneumothorax seen previously has been reduced by a thoracotomy tube. There is capping along the peripheral pleural margin. Once again, there is a diffuse increase in the interstitial markings throughout the lung nuñez accentuated by technique. The tip of the PICC line catheter is unchanged. There are no new abnormal parenchymal opacities. There is no change in the osseous structures. IMPRESSION: Reduced right-sided pneumothorax and other findings as described above. <Electronically signed by Devonte Aragon > 11/11/20 [id number]
--- NOTE | 2020-11-11 10:00 | IPN ---
PROGRESS NOTE DATE: 11/11/2020 SUBJECTIVE: I again attended Senia Buckarthy in the Progressive Care Unit. Patient has been examined and chart reviewed. She is actually sitting in the bedside chair today. T-max overnight 97.1, blood pressure 100 to 125 systolic, heart rate generally in the low 100s. Respiratory rate in the 20s without obvious accessory muscle use. Currently 94 to 95% on 90% Vapotherm with a 30 liter flow rate. Chest x-ray shows the chest tube in good position. There is a rim of what is likely blood anteriorly and laterally on the chest x-ray today compared to yesterday. There is persistent air leak although not as vigorous as yesterday. She remains on -40 cm of water of suction through the Pleur-Evac. OBJECTIVE: GENERAL: She is awake, alert and appropriate. She is comfortable. Mildly dyspneic with conversation but again seems somewhat less than the last several days. HEENT: Normocephalic, atraumatic. Pupils reactive. NECK: Soft, supple. Trachea is midline. CHEST: Right anterior chest tube dressing is in place. There is good bilateral air entry. No convincing rub. No other focal adventitious breath sounds are identified. CARDIAC: Distant, generally regular. Peripheral pulses palpable. No edema. ABDOMEN: Obese, soft with active bowel sounds without organomegaly or masses. EXTREMITIES: No cyanosis or clubbing. NEUROLOGIC: She is awake, alert and appropriate. PSYCH: Normal mood and affect. LABORATORY DATA: Laboratories shows white blood cell count 13.2, hemoglobin 11.1, platelet 392,000, 84% segs, no bands. Sodium 141, potassium 4.5, chloride 102, CO2 36, BUN 32, creatinine 0.29. IMPRESSION: 1. Hypoxemia, multifactorial. 2. Right lower lobe necrotizing pneumonia with spontaneous pneumothorax. 3. Pneumothorax with BP fistula. 4. Chronic anticoagulation. 5. Remote COVID infection. 6. Global deconditioning. 7. High risk medications/steroids. At this point, she has remained on Vapotherm. She has been intolerant of noninvasive positive pressure support. She is making some progress regarding her conditioning. She is out of bed a little bit more. From a nutritional standpoint she is doing well. I am in agreement with management of her BP fistula. Her chest x-ray today actually shows either fluid or blood laterally and superiorly. Certainly, given the rapidity with which it accumulated, it is likely blood and she may actually be performing her own blood patch. At this point, we will continue as outlined above. Further recommendations will be made in the progress record as new information becomes available.
[2020-11-11] MEDS: PERCOCET 5MG/325MG TAB PO PRN ×2 (10:56→22:36)
--- NOTE | 2020-11-11 12:41 | IPNPDOC ---
Date Seen The patient was seen on 11/11/20. Progress Note SUBJECTIVE:Mrs. Jordan was seen at bedside this morning. She appears to be in good spirits and is much more active today. She states that she slept well, and her breathing is more comfortable now. Her chest tube cotninues to have an air leak. Using vapotherm. OBJECTIVE PHYSICAL EXAMINATION: VITAL SIGNS: please see below General: NAD, comfortable HEENT: PERRLA, EOMI, sclerae clear Neck: supple, normal ROM, no JVD Respiratory: persistent crackles at bilateral lung bases. Good air entry ellis aterally. R anterior chest tube in ituy. CVS: RRR, normal S1, S2, no murmurs Abdo: soft, obese, present bowel sounds. Extremities: no edema, pulses 2+ MSK: no joint deformities, normal ROM Neuro: no focal neuro deficits, moving all 4 extremities, CN2-12 intact. Strength 5/5 in all 4 extremities. No nystagmus. Psych: calm, cooperative, AAO x 3 LABORATORY DATA, IMAGING STUDIES, MICROBIOLOGY: Please see below. DVT prophylaxis ordered?: ASSESSMENT AND PLAN: Mrs. Jordan is a 50 year old female who is here with acute hypoxemic respiratory failure 2/2 ARDS 2/2 COVID 19 and incarcerated incis ional hernia. She has been hospitalized over a month and will require rehab. When here oxygen requirements are lower, she can be placed to rehab. Continues with Solumedrol 15mg q12h and Lovenox for IPAH. Encourage use of IS. Patient will need to use the BIPAP/CPAP as much as possible to improve her aeration. Developed R sided pneumothorax, R anterior chest tube placed by Dr. Pena on 11/05/20. PROBLEMS: # Acute hypoxemic respiratory failure 2/2 ARDS 2/2 COVID-19 -Acute COVID-19 has resolved. Patient has completed treatment with tocilizumab, remdesivir, and decadron. -Patients hypoxia is multifactorial. 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 She is on solumedrol 30 mg IV q12. PCP prophylaxis with Bactrim 1DS qD -Pulmonary medicine has been consulted and is following intermittently. -She was continued on full dose Lovenox for possible PE. She had not received a CTA initially given the severity of her hypoxia. CTA chest from 10/28/20 did not show a PE. I discussed with Dr. Coker. He believes that since there is not definitive evidence for PE, we can DC therapeutic dose lovenox and switch patient to prophylactic dose. She was high risk in setting of COVID, but has been on full dose AC since 10/08/20. On Dr. Coker's recommendation will convert lovenox dosing to prophylactic. -Patient will need to use BIPAP/CPAP as much as possible to help expand lungs. 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 Pena - not a surgical candidate, would not tolerate one lung anesthesia # Acute hypoxemic respiratory failure 2/2 hospital acquired pneumonia with n ecrosis -Dr. Chan looked at the CT image, the bullae may be necrosis. Patient also had pleuritic chest pain supporting the idea of necrotic pneumonia -Patient Cefepime day 11 -MRSA screen negative (Had 5 days of Vancomycin) #. Sinus Tachycardia -Patient continues to be in sinus tachycardia. Likely secondary to hypoxia. Echocardiogram has resulted without any significant findings. Her tachycardia is resolving. Her HR is currently 100-110 improved from 130 -Continue Lopressor 50mg BID and Cardizem 60mg q6hr # Transient Atrial fibrillation -Patient has remained in sinus. Was noted to have an episode of atrial fibrillation earlier in her hospitalization likely driven by hypoxia #. Hematuria -Has resolved. Patient is on full dose anticoagulation. Will continue to monitor #. JAQUELINE -Patient is currently on Bilevel #. Incarcerated Incisional Hernia -s/p surgical correction on 09/02/2020 -Healing well. No acute complications #. Physical Deconditioning/Debility -Patient has an extended hospital stay of over 1 month with critical illness. She is severely debilitated. She is working with physical therapy. She will need assisted rehab pending clinical improvement. # Constipation -Bowel regimen ordered #. GI prophylaxis -Protonix #. DVT prophylaxis - reduced therapeutic dose of lovenox to prophylactic #. Right pneumothorax -Dr. Pena following, recommendations appreciated -Chest tube inserted on 11/05/2020 -Okay for PT and CPAP - continues to have air leak DISPOSITION: Pending improvement in oxygen requirements. Continue to encourage use of CPAP. VS, I&O, 24H, Fishbone Vital Signs/I&O Vital Signs Date Time Temp Pulse Resp B/P (MAP) Pulse Ox O2 Delivery O2 Flow Rate FiO2 11/11/20 12:14 93 114/56 11/11/20 10:56 22 HVNI-Vapotherm 30.0 90 11/11/20 07:52 95 11/11/20 04:35 96.7 I&O- Last 24 Hours up to 6 AM 11/11/20 06:00 Intake Total 898 ml Output Total 554 ml Balance 344 ml Laboratory Data 24H LABS Laboratory Tests 2 11/10/20 17:45: Bedside Glucose (Misc Panel) 259H 11/10/20 20:37: Bedside Glucose (Misc Panel) 170H 11/11/20 05:57: Immature Granulocyte % (Auto) 4.5H, Neutrophils (%) (Auto) 84.7H, Lymphocytes (%) (Auto) 5.6L, Monocytes (%) (Auto) 4.6, Eosinophils (%) (Auto) 0.0, Basophils (%) (Auto) 0.6, Neutrophils # (Auto) 11.2H, Lymphocytes # (Auto) 0.7L, Monocytes # (Auto) 0.6, Eosinophils # (Auto) 0.0, Basophils # (Auto) 0.1, Nucleated Red Blood Cells % (auto) 0.2H, Anion Gap 3L, Glomerular Filtration Rate > 60.0, Calcium Level 8.8 11/11/20 11:39: Bedside Glucose (Misc Panel) 193H CBC/BMP Laboratory Tests 11/11/20 05:57 JUANA TAYLOR MD Nov 11, 2020 12:41
--- NOTE | 2020-11-11 14:49 | IPN ---
PROGRESS NOTE DATE: 11/11/2020 Ms. Kumari is status quo and breathing well, however, on 30 liters a minute of face mask at FiO2 of 90%. She still has an air leak, but it does not look as bad as it did yesterday. She is still on 40 cm of suction, and her chest x-ray shows her lung expanded to the chest wall without a pneumothorax. Her vital signs show a maximum temperature of 97.1 with a heart rate that ranges between 93-120 in a sinus rhythm, respiratory rate of 22-24 without the use of accessory muscles, who is 92%-99% saturated on the above high-flow cannula. Blood pressure is ranging between 100/56 to 125/62. Her intake and output for the past 24 hours has been recorded as 768 in, 460 out, for a positivity of 308 mL. She has put 35 mL out of the chest tube. She weighs 105.5 kg today compared to 104.8 kg yesterday. PHYSICAL EXAMINATION: Her lungs still show a short inspiratory time with coarse rhonchi throughout. Most of the sounds I hear are from the high-flow cannula. Percussion notes are full to the diaphragm. Cardiac exam is without murmurs, clicks, gallops, or rubs. I cannot feel her point of maximal impulse (PMI). S1 and S2 are normal. Abdomen is soft and nontender. Bowel sounds are positive. There is no hepatomegaly. No costovertebral angle (CVA) tenderness. Extremities show no pretibial edema, no calf tenderness, no differential swelling of the upper extremities. Skin is warm, dry, and perfused without cyanosis or mottling, including that of the nailbeds and knees. Neck is supple. There is no jugular venous distention. No subcutaneous emphysema. Trachea is midline. Mouth shows the mucous membranes to be pink and moist. Lips and commissures without lesions. No thrush. Eyes show her pupils to be equal and reactive. Extraocular motion intact. Sclerae anicteric. Neurologic shows II-XII intact. Normal gross motor, gross sensation intact. Gait is not tested. Psychiatric shows her to be awake, alert, and oriented times three with appropriate mood and affect and conversational. Her white count today is up to 13.2 from 11.4 yesterday. Hemoglobin and hematocrit are 11.1 and 35.9, essentially unchanged from yesterday. Platelet count is 392, and differential shows 84% neutrophils, 5% lymphocytes, and 4% monocytes. There are no immature forms or toxic granulations. Her chemistries today show normal electrolytes except for an elevated total CO2 of 36. BUN and creatinine are 32 and 0.29 with a glucose of 189 and a calcium 8.8. Her chest x-ray shows her lung fully expanded to the chest wall. Costophrenic angles are sharp, and she still has the bilateral infiltrates. IMPRESSION: 1. Spontaneous pneumothorax, right side. 2. Bronchopleural fistula. 3. Hypoxic respiratory failure. 4. Necrotizing pneumonia. 5. COVID early in the spring. 6. Post-COVID fibrosis. PLAN AND DISCUSSION: Will continue her on 40 cm of suction. As I have noted before in my prior notes, this is going to be a long waiting time for this to heal by itself.
[2020-11-11] MEDS: SERTRALINE HCL 25 MG TABLET PO SCH (22:28)
[2020-11-11] MEDS: **NOTE PATIENT COMMENT** MISC XX SCH (22:31)
[2020-11-11] MEDS: SODIUM CHLORIDE 0.9% INJ 10 ML SYR IV PRN (23:04)
[2020-11-12] VITALS (23 sets, daily range): BP systolic 112–130; BP diastolic 55–70; O2SAT 84–95
[2020-11-12] MEDS: LEVALBUTEROL 1.25 MG/0.5 ML CONCENTRATE NEB NEB SCH ×4 (00:44→19:36)
--- NOTE | 2020-11-12 02:48 | REPVR ---
PROCEDURE INFORMATION: Exam: XR Chest Exam date and time: 11/12/2020 2:02 AM Age: 50 years old Clinical indication: Other: Decreased 02 sats; Additional info: Decrease o2 sats TECHNIQUE: Imaging protocol: XR of the chest. Views: 1 view. COMPARISON: [place] PORTABLE CHEST X-RAY 11/11/2020 7:10 AM FINDINGS: Tubes, catheters and devices: A right PICC line and a right chest tube remain unchanged. Lungs: Bilateral pulmonary infiltrates are similar. Pleural spaces: Pleural thickening laterally on the right is unchanged. No pneumothorax. Heart/Mediastinum: The heart and mediastinum are unchanged. Bones/joints: Status post anterior fusion of the lower cervical spine. IMPRESSION: There has been little change from 11/11/2020. Electronically signed by: Ladarius Grant On 11/12/2020 02:48:05 AM
[2020-11-12] MEDS: CEFEPIME HCL 2 GM in D5W MINI-BAG PLUS 50 ML IV SCH ×3 (05:05→21:40)
[2020-11-12] MEDS: SODIUM CHLORIDE 0.9% INJ 10 ML SYR IV SCH ×2 (05:06→18:39)
[2020-11-12] MEDS: ALPRAZolam 0.5 MG TAB PO SCH ×3 (05:13→18:37)
[2020-11-12 05:18] LABS: HEMATOCRIT 33.8 % (36.0-47.0); HEMOGLOBIN 10.4 g/dl (12.0-15.5); MEAN CORPUSCULAR HEMOGLOBIN 30.4 pg (27.0-33.0); MEAN CORPUSCULAR HGB CONC 30.8 g/dl (32.0-36.5); MEAN CORPUSCULAR VOLUME 98.8 fl (80.0-96.0); PLATELET COUNT, AUTOMATED 325 10^3/uL (150-450); RED BLOOD COUNT 3.42 10^6/uL (4.00-5.40); WHITE BLOOD COUNT 11.3 10^3/uL (4.0-10.0)
[2020-11-12 05:30] LABS: ATYPICAL LYMPH 4 % (0-5); LYMPHOCYTES 3 % (16-44); MONOCYTES 3 % (0-5); MYELOCYTES 1 % (0-0); NEUTROPHILS 89 % (28-66); PLATELET CLUMPS SMALL AMT; PLATELET ESTIMATE NORMAL (NORMAL); POLYCHROMASIA 1+
[2020-11-12 05:31] LABS: ANISOCYTOSIS 1+; HYPOCHROMASIA 1+
[2020-11-12 05:37] LABS: BLOOD UREA NITROGEN 29 MG/DL (7-18); CALCIUM LEVEL 8.8 MG/DL (8.5-10.1); CARBON DIOXIDE LEVEL 33 MEQ/L (21-32); CHLORIDE LEVEL 104 MEQ/L (98-107); CREATININE FOR GFR 0.29 MG/DL (0.55-1.30); GLOMERULAR FILTRATION RATE > 60.0 (>51); GLUCOSE, FASTING 226 MG/DL (70-100); POTASSIUM SERUM 4.8 MEQ/L (3.5-5.1); SODIUM LEVEL 141 MEQ/L (136-145)
[2020-11-12] MEDS: PERCOCET 5MG/325MG TAB PO PRN ×2 (06:13→14:41)
[2020-11-12] MEDS: HumaLOG INSULIN (NovoLOG) PER UNIT SC SCH ×4 (08:11→21:00)
[2020-11-12] MEDS: methylPREDNISolone 40MG 1ML VIAL IV SCH ×2 (08:11→21:38)
[2020-11-12] MEDS: LIDOCAINE 5% (LIDODERM) PATCH TD SCH (08:12)
[2020-11-12] MEDS: MOM 30ML SUSPENSION UDC PO SCH (08:12)
[2020-11-12] MEDS: guaiFENesin ER 600 MG TAB PO SCH ×2 (08:12→21:39)
[2020-11-12] MEDS: DOCUSATE SODIUM 100MG CAPSULE PO SCH ×2 (08:12→21:39)
[2020-11-12] MEDS: PANTOPRAZOLE 40MG TAB (PROTONIX) PO SCH ×2 (08:12→21:38)
[2020-11-12] MEDS: BACTRIM 160MG/800MG DS TAB PO SCH (08:12)
[2020-11-12] MEDS: METOPROLOL TART 25 MG TABLET PO SCH ×2 (08:13→21:39)
[2020-11-12] MEDS: ANALGESIC BALM CRM 3OZ TOP SCH ×4 (08:14→21:40)
--- NOTE | 2020-11-12 08:23 | REP ---
INDICATION: pneumothorax COMPARISON: 11/12/2020 at 1:42 a.m. TECHNIQUE: Portable AP view of the chest FINDINGS: Right apical chest tube in stable position. Right PICC line with tip in the SVC unchanged. Mediastinum and cardiac silhouette are incompletely evaluated but grossly stable when compared to prior. Diffuse bilateral acute on chronic interstitial and alveolar infiltrates again noted and unchanged. No obvious residual pneumothorax identified. No obvious effusion. IMPRESSION: No significant change from prior examination. No obvious residual right apical pneumothorax. <Electronically signed by Israel Holguin > 11/12/20 0819
--- NOTE | 2020-11-12 13:22 | IPN ---
PROGRESS NOTE DATE: 11/12/2020 Early in the morning hours, around 1:30 a.m., I was called with the report that there was more drainage around the chest tube and with decreased oxygen saturations. I therefore ordered a chest x-ray, and that did not show any changes. I referred the nursing staff to the medical staff to address the oxygenation. Apparently it spontaneously resolved. Her vital signs show a maximum temperature of 96.9 with a heart rate that ranges between 79-97 in a sinus rhythm, respiratory rate of 18-20 without the use of accessory muscles, who is 87%-95% saturated on 100% FiO2 at flow rate of 35 liters. Her blood pressure is ranging between 137/63 to 112/55. Her intake and output for the past 24 hours has been recorded as 1020 in and 1150 out, for a negativity of 130 mL. She has put nothing out of the chest tube. Weight today is 106.5 kg compared to 105.5 kg yesterday. PHYSICAL EXAMINATION: She still has the very short inspiratory times with very hollow, almost amphoric breath sounds. I can easily hear the high-flow oxygen on auscultation. I do not hear any wheezing, rhonchi, or rales, however. Percussion note is full to the diaphragm. Cardiac exam is without murmurs, clicks, gallops, or rubs. I cannot feel her point of maximal impulse (PMI). S1 and S2 are normal. Abdomen is soft and nontender. Bowel sounds are positive. There is no hepatomegaly. No costovertebral angle (CVA) tenderness. Extremities show no pretibial edema, no calf tenderness, no differential swelling of the upper extremities. Skin is warm, dry, and perfused without cyanosis or mottling, including that of the nailbeds and knees. Neck is supple. There is no jugular venous distention. No subcutaneous emphysema. Trachea is midline. Mouth shows the mucous membranes to be pink and moist. Lips and commissures without lesions. No thrush. Eyes show her pupils to be equal and reactive. Extraocular motion intact. Sclerae anicteric. Neurologic shows II-XII intact. Normal gross motor, gross sensation intact. Gait is not tested. Psychiatric shows her to be awake, alert, and oriented times three with appropriate mood and affect and conversational. Her white count is 11.3 with a hemoglobin and hematocrit of 10.4 and 33.8. Platelet count is 325. Differential shows 89% neutrophils, 3% lymphocytes, and 3% monocytes. There are no immature forms or toxic granulations. Her chemistries show essentially normal electrolytes with a marginally high total CO2 of 33. BUN and creatinine are 29 and 0.29, respectively, with a glucose of 226 and calcium 8.8. Her chest x-ray today is unchanged from yesterday's and earlier this morning's. She still has the bilateral infiltrates. Costophrenic angles are sharp, and the chest tube is in excellent position. There is no subcutaneous emphysema. IMPRESSION: 1. Spontaneous pneumothorax, right side. 2. Bronchopleural fistula. 3. Hypoxic respiratory failure. 4. Necrotizing pneumonia. 5. COVID early in the spring. 6. Post-COVID fibrosis. PLAN AND DISCUSSION: I will decrease her chest tube suction to -30 today. The air leak does not seem to be as large as it was the last few days. I do not know exactly what happened last night, but it seems to spontaneous resolve.
--- NOTE | 2020-11-12 14:23 | IPNPDOC ---
Date Seen The patient was seen on 11/12/20. Progress Note SUBJECTIVE:Mrs. Jordan was seen at bedside this morning. She appears to be in good spirits and is much more active today. She states that she slept well, and her breathing is more comfortable now. Her chest tube cotninues to have an air leak. Using vapotherm. OBJECTIVE PHYSICAL EXAMINATION: VITAL SIGNS: please see below General: NAD, comfortable HEENT: PERRLA, EOMI, sclerae clear Neck: supple, normal ROM, no JVD Respiratory: persistent crackles at bilateral lung bases. Good air entry ellis aterally. R anterior chest tube in ituy. CVS: RRR, normal S1, S2, no murmurs Abdo: soft, obese, present bowel sounds. Extremities: no edema, pulses 2+ MSK: no joint deformities, normal ROM Neuro: no focal neuro deficits, moving all 4 extremities, CN2-12 intact. Strength 5/5 in all 4 extremities. No nystagmus. Psych: calm, cooperative, AAO x 3 LABORATORY DATA, IMAGING STUDIES, MICROBIOLOGY: Please see below. DVT prophylaxis ordered?: ASSESSMENT AND PLAN: Mrs. Jordan is a 50 year old female who is here with acute hypoxemic respiratory failure 2/2 ARDS 2/2 COVID 19 and incarcerated incis ional hernia. She has been hospitalized over a month and will require rehab. When here oxygen requirements are lower, she can be placed to rehab. Continues with Solumedrol 15mg q12h and Lovenox for IPAH. Encourage use of IS. Patient will need to use the BIPAP/CPAP as much as possible to improve her aeration. Developed R sided pneumothorax, R anterior chest tube placed by Dr. Pena on 11/05/20. PROBLEMS: # Acute hypoxemic respiratory failure 2/2 ARDS 2/2 COVID-19 -Acute COVID-19 has resolved. Patient has completed treatment with tocilizumab, remdesivir, and decadron. -Patients hypoxia is multifactorial. 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 She is on solumedrol 30 mg IV q12. PCP prophylaxis with Bactrim 1DS qD -Pulmonary medicine has been consulted and is following intermittently. -She was continued on full dose Lovenox for possible PE. She had not received a CTA initially given the severity of her hypoxia. CTA chest from 10/28/20 did not show a PE. I discussed with Dr. Coker. He believes that since there is not definitive evidence for PE, we can DC therapeutic dose lovenox and switch patient to prophylactic dose. She was high risk in setting of COVID, but has been on full dose AC since 10/08/20. On Dr. Coker's recommendation will convert lovenox dosing to prophylactic. -Patient will need to use BIPAP/CPAP as much as possible to help expand lungs. 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 Pena - not a surgical candidate, would not tolerate one lung anesthesia # Acute hypoxemic respiratory failure 2/ hospital acquired pneumonia with n ecrosis -Dr. Chan looked at the CT image, the bullae may be necrosis. Patient also had pleuritic chest pain supporting the idea of necrotic pneumonia - Patient Cefepime day 13. I discussed with Dr. Rodriguez today. He agrees that once she completes 14 days of cefepime, we can DC it. - does not endorse cough and has been afebrile - sputum and blood cultures have been negative #. Sinus Tachycardia -Patient continues to be in sinus tachycardia. Likely secondary to hypoxia. Echocardiogram has resulted without any significant findings. Her tachycardia is resolving. Her HR is currently 100-110 improved from 130 -Continue Lopressor 50mg BID and Cardizem 60mg q6hr # Transient Atrial fibrillation - resolved. #. Hematuria -Has resolved. - full dose lovenox now switched to prophylactic dose #. JAQUELINE -Patient is currently on Bilevel #. Incarcerated Incisional Hernia -s/p surgical correction on 09/02/2020 -Healing well. No acute complications #. Physical Deconditioning/Debility -Patient has an extended hospital stay of over 1 month with critical illness. She is severely debilitated. She is working with physical therapy. 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 # Constipation -Bowel regimen ordered #. GI prophylaxis -Protonix #. DVT prophylaxis - reduced therapeutic dose of lovenox to prophylactic #. Right pneumothorax -Dr. Pena following, recommendations appreciated -Chest tube inserted on 11/05/2020 -Okay for PT and CPAP -continues to have air leak, chest tube to remain in place until air leak stops DISPOSITION: Pending improvement in oxygen requirements. Continue to encourage use of CPAP. Provided letter for disability, endorsing need for oxygen therapy for the next year. VS, I&O, 24H, Fishbone Vital Signs/I&O Vital Signs Date Time Temp Pulse Resp B/P (MAP) Pulse Ox O2 Delivery O2 Flow Rate FiO2 11/12/20 12:37 97 137/63 11/12/20 08:00 30.0 100 11/12/20 07:26 95 HVNI-Vapotherm 11/12/20 06:43 20 11/12/20 05:00 96.6 I&O- Last 24 Hours up to 6 AM 11/12/20 06:00 Intake Total 840 ml Output Total 875 ml Balance -35 ml Laboratory Data 24H LABS Laboratory Tests 2 11/11/20 17:40: Bedside Glucose (Misc Panel) 205H 11/11/20 22:20: Bedside Glucose (Misc Panel) 161H 11/12/20 05:03: Immature Granulocyte % (Auto) , Neutrophils (%) (Auto) , Nucleated Red Blood Cells % (auto) 0.3H, Neutrophils 89H, Lymphocytes (Manual) 3L, Monocytes (Manual) 3, Myelocytes 1H, Atypical Lymphocytes 4, Polychromasia 1+, Hypochromasia 1+, Anisocytosis 1+, Platelet Estimate NORMAL, Clumped Platelets SMALL AMT, Anion Gap 4L, Glomerular Filtration Rate > 60.0, Calcium Level 8.8 11/12/20 12:12: Bedside Glucose (Misc Panel) 168H CBC/BMP Laboratory Tests 11/12/20 05:03 JUANA TAYLOR MD Nov 12, 2020 14:23
--- NOTE | 2020-11-12 17:53 | CCN ---
PULMONARY CRITICAL CARE NOTE DATE: 11/12/2020 SUBJECTIVE: The patient is seen in the progressive care unit, hospital day #72. She is awake, alert, interactive, working with physical therapy at bedside. OBJECTIVE: Her temperature is 96.6, pulse rate 86, respirations 20, blood pressure 122/70, oxygen saturation 95% on Vapotherm oxygen 30 liters flow, 100% oxygen. Intake and output for the past 24 hours: 1020 in, 1150 out. She is ill-appearing, but in no acute distress. HEART SOUNDS: Regular, with appreciable murmur. LUNGS: Breath sounds diminished with crepitant rales at the bases. There is a pleural friction rub on the left. Thoracostomy tube on the right with active air leak. ABDOMEN: Soft and obese. EXTREMITIES: Show multiple ecchymoses. Pulses are palpable. DIAGNOSTIC STUDIES: Sodium 141, potassium 4.8, chloride 104, CO2 33, BUN 29, creatinine 0.29, glucose 226. White cell count 11.3, hemoglobin 10.4, hematocrit 33.8, platelet count 325,000. Chest x-ray image was reviewed. Chest tube in good position. Lungs are reasonably well-inflated. However, there is diffuse interstitial prominence. MEDICATIONS: Were reviewed. ASSESSMENT: 1. Hypoxemia. Patient is post COVID pneumonia with acute respiratory distress syndrome (ARDS) and subsequent fibrosis. Her saturations are acceptable on Vapotherm oxygen. I would recommend continuing supplemental oxygen as needed to maintain 90% plus. 2. Bronchial pneumonia with necrotizing changes and bronchopleural fistula. Chest tube has been placed and there is some persistent air leak. Followed by thoracic surgery. Her medical condition remains very complex; however, her acute illness seems to have passes. She will require a prolonged hospital stay and rehabilitation. Thankfully, she is participating with physical therapy. We will follow at this point at a distance. Please be sure to contact us if questions arise.
[2020-11-12] MEDS: SERTRALINE HCL 25 MG TABLET PO SCH (21:39)
[2020-11-12] MEDS: **NOTE PATIENT COMMENT** MISC XX SCH (21:41)
[2020-11-13] VITALS (18 sets, daily range): BP systolic 120–146; BP diastolic 65–85; O2SAT 88–95
[2020-11-13] MEDS: ALPRAZolam 0.5 MG TAB PO SCH ×5 (00:12→23:29)
[2020-11-13] MEDS: LEVALBUTEROL 1.25 MG/0.5 ML CONCENTRATE NEB NEB SCH ×4 (00:21→20:30)
[2020-11-13] MEDS: CEFEPIME HCL 2 GM in D5W MINI-BAG PLUS 50 ML IV SCH ×3 (04:30→20:43)
[2020-11-13 04:54] LABS: HEMATOCRIT 36.3 % (36.0-47.0); HEMOGLOBIN 11.3 g/dl (12.0-15.5); MEAN CORPUSCULAR HEMOGLOBIN 30.6 pg (27.0-33.0); MEAN CORPUSCULAR HGB CONC 31.1 g/dl (32.0-36.5); MEAN CORPUSCULAR VOLUME 98.4 fl (80.0-96.0); PLATELET COUNT, AUTOMATED 359 10^3/uL (150-450); RED BLOOD COUNT 3.69 10^6/uL (4.00-5.40); WHITE BLOOD COUNT 11.7 10^3/uL (4.0-10.0)
[2020-11-13 05:21] LABS: ATYPICAL LYMPH 4 % (0-5); LYMPHOCYTES 7 % (16-44); METAMYELOCYTES 4 % (0-0); MONOCYTES 1 % (0-5); MYELOCYTES 2 % (0-0); NEUTROPHILS 79 % (28-66); PLATELET ESTIMATE NORMAL (NORMAL)
[2020-11-13 05:22] LABS: POLYCHROMASIA 1+
[2020-11-13 05:23] LABS: ANISOCYTOSIS 1+
[2020-11-13 05:32] LABS: BLOOD UREA NITROGEN 17 MG/DL (7-18); CALCIUM LEVEL 9.1 MG/DL (8.5-10.1); CARBON DIOXIDE LEVEL 36 MEQ/L (21-32); CHLORIDE LEVEL 100 MEQ/L (98-107); CREATININE FOR GFR 0.31 MG/DL (0.55-1.30); GLOMERULAR FILTRATION RATE > 60.0 (>51); GLUCOSE, FASTING 257 MG/DL (70-100); POTASSIUM SERUM 4.9 MEQ/L (3.5-5.1); SODIUM LEVEL 138 MEQ/L (136-145)
[2020-11-13] MEDS: SODIUM CHLORIDE 0.9% INJ 10 ML SYR IV SCH ×2 (05:46→17:15)
[2020-11-13] MEDS: guaiFENesin ER 600 MG TAB PO SCH ×2 (08:11→20:44)
[2020-11-13] MEDS: LIDOCAINE 5% (LIDODERM) PATCH TD SCH (08:11)
[2020-11-13] MEDS: PANTOPRAZOLE 40MG TAB (PROTONIX) PO SCH ×2 (08:11→20:44)
[2020-11-13] MEDS: methylPREDNISolone 40MG 1ML VIAL IV SCH ×2 (08:11→20:43)
[2020-11-13] MEDS: HumaLOG INSULIN (NovoLOG) PER UNIT SC SCH ×4 (08:11→20:26)
[2020-11-13] MEDS: DOCUSATE SODIUM 100MG CAPSULE PO SCH ×2 (08:11→20:44)
[2020-11-13] MEDS: BACTRIM 160MG/800MG DS TAB PO SCH (08:11)
[2020-11-13] MEDS: METOPROLOL TART 25 MG TABLET PO SCH ×2 (08:12→20:44)
[2020-11-13] MEDS: MOM 30ML SUSPENSION UDC PO SCH (08:12)
[2020-11-13] MEDS: ANALGESIC BALM CRM 3OZ TOP SCH ×4 (08:12→20:45)
[2020-11-13] MEDS: PERCOCET 5MG/325MG TAB PO PRN (08:17)
--- NOTE | 2020-11-13 08:28 | REP ---
INDICATION: pneumothorax. COMPARISON: Comparison chest x-ray November 12, 2020 TECHNIQUE: .. sitting AP portable chest x-ray. FINDINGS: A right apical chest tube remains in place. There is some pleural thickening along the apex and lateral pleural surface on the right but no evidence of pneumothorax is seen. A right-sided PICC line is seen terminating in the expected location of superior vena cava. Bilateral perihilar interstitial infiltrates and right base infiltrates persist. Pleural angles are sharp. Heart is not enlarged. Lung nueñz are unchanged.. IMPRESSION: No radiographic change from the previous day's study. Bilateral perihilar infiltrates. Right chest tube in place.. <Electronically signed by Barney Rosado > 11/13/20 [id number]
--- NOTE | 2020-11-13 12:58 | IPN ---
PROGRESS NOTE DATE: 11/13/2020 Ms. Kumari states that her breathing is a bit more heavy since the turning down the suction on her chest tube yesterday to 30. Nonetheless, her lung is fully expanded to the chest wall on the x-ray. She still has an air leak. Her vital signs show a maximum temperature of 98.9 with a heart rate that ranges between 81-100 in a sinus rhythm, respiratory rate of 16-25 without the use of accessory muscles, who is 90%-96% saturated now on 30 liter flow rate of the VapoTherm and 100% FiO2. Her blood pressure is ranging between 120/68 to 146/85. Her intake and output for the past 24 hours is recorded as only 240 in and 275 out, for a negativity of 35 ml. According to patient and the nurse, she is eating a lot more than is recorded, and I suspect the urine output is also less than accurate. Nothing from out the chest tube, and there is still an air leak on 30 cm of suction water. Her weight today is 105.7 kg compared to 106.5 kg yesterday. PHYSICAL EXAMINATION: I still hear predominant sounds of the high-flow oxygen. There are some coarse rhonchi and even a hint of a succussion splash in the right lower hemithorax. Percussion notes are full to the diaphragm. Cardiac exam is without murmurs, clicks, gallops, or rubs. I cannot feel her point of maximal impulse (PMI). S1 and S2 are normal. Abdomen is soft and nontender. Bowel sounds are positive. There is no hepatomegaly. No costovertebral angle (CVA) tenderness. Extremities show no pretibial edema, no calf tenderness, no differential swelling of the upper extremities. Skin is warm, dry, and perfused without cyanosis or mottling, including that of the nailbeds and knees. Neck is supple. There is no jugular venous distention. No subcutaneous emphysema. Trachea is midline. Mouth shows the mucous membranes to be pink and moist. Lips and commissures without lesions. No thrush. Eyes show her pupils to be equal and reactive. Extraocular motion intact. Sclerae anicteric. Neurologic shows II-XII intact. Normal gross motor, gross sensation intact. Gait is not tested. Psychiatric shows her to be awake, alert, and oriented times three with appropriate mood and affect and conversational. Her white count today is 11.7 with a hemoglobin and hematocrit of 11.3 and 36.3, respectively. It is slightly up from yesterday's of 10.4 and 33.8. Platelet count is 359, and differential shows 79% neutrophils, 7% lymphocytes, 1% monocytes with 3 band forms, 4 metamyelocytes, and 2 myelocytes. There are no toxic granulations reported, however. Her chemistries show normal electrolytes except for an elevated CO2 of 36. BUN and creatinine are 17 and 0.31 with a glucose of 257 and calcium 9.1. As noted above, her chest x-ray shows her lung fully expanded to the chest wall. The bilateral infiltrates are still present. Costophrenic angles are sharp, and chest tube is in good position. IMPRESSION: 1. Spontaneous pneumothorax, right side. 2. Bronchopleural fistula. 3. Hypoxic respiratory failure. 4. Necrotizing pneumonia. 5. COVID early in the spring. 6. Post-COVID fibrosis. PLAN AND DISCUSSION: Her chest tube is still leaking, and therefore I will continue it at -30. She says she her breathing feels a bit heavier having turned the suction down. I will therefore keep the suction at 30 but turn it back up. I did note on her chest CT on 10/28/2000 that she had a large amount of cystic bullous changes in the right lower hemithorax, and I am wondering of those are causing me to her a succussion splash, They may be becoming filled with fluid rather than air. I hope that her differential today with a severe left shift is not a harbinger of brewing infection or empyema or lung abscess in the lower lobe. Will continue to monitor her chest x-rays and her white count.
--- NOTE | 2020-11-13 14:01 | IPNPDOC ---
Date Seen The patient was seen on 11/13/20. Progress Note SUBJECTIVE:Mrs. Jordan was seen at bedside this morning. She appears to be in good spirits and is much more active today. She states that she slept well, and her breathing is more comfortable now. Her chest tube cotninues to have an air leak. Using vapotherm. OBJECTIVE PHYSICAL EXAMINATION: VITAL SIGNS: please see below General: NAD, comfortable HEENT: PERRLA, EOMI, sclerae clear Neck: supple, normal ROM, no JVD Respiratory: persistent crackles at bilateral lung bases. Good air entry ellis aterally. R anterior chest tube in ituy. CVS: RRR, normal S1, S2, no murmurs Abdo: soft, obese, present bowel sounds. Extremities: no edema, pulses 2+ MSK: no joint deformities, normal ROM Neuro: no focal neuro deficits, moving all 4 extremities, CN2-12 intact. Strength 5/5 in all 4 extremities. No nystagmus. Psych: calm, cooperative, AAO x 3 LABORATORY DATA, IMAGING STUDIES, MICROBIOLOGY: Please see below. DVT prophylaxis ordered?: ASSESSMENT AND PLAN: Mrs. Jordan is a 50 year old female who is here with acute hypoxemic respiratory failure 2/2 ARDS 2/2 COVID 19 and incarcerated incis ional hernia. She has been hospitalized over a month and will require rehab. When here oxygen requirements are lower, she can be placed to rehab. Continues with Solumedrol 15mg q12h and Lovenox for IPAH. Encourage use of IS. Patient will need to use the BIPAP/CPAP as much as possible to improve her aeration. Developed R sided pneumothorax, R anterior chest tube placed by Dr. Pena on 11/05/20. PROBLEMS: # Acute hypoxemic respiratory failure 2/2 ARDS 2/2 COVID-19 -Acute COVID-19 has resolved. Patient has completed treatment with tocilizumab, remdesivir, and decadron. -Patients hypoxia is multifactorial. 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 She is on solumedrol 30 mg IV q12. PCP prophylaxis with Bactrim 1DS qD -Pulmonary medicine has been consulted and is following intermittently. -She was continued on full dose Lovenox for possible PE. She had not received a CTA initially given the severity of her hypoxia. CTA chest from 10/28/20 did not show a PE. I discussed with Dr. Coker. He believes that since there is not definitive evidence for PE, we can DC therapeutic dose lovenox and switch patient to prophylactic dose. She was high risk in setting of COVID, but has been on full dose AC since 10/08/20. On Dr. Coker's recommendation will convert lovenox dosing to prophylactic. -Patient will need to use BIPAP/CPAP as much as possible to help expand lungs. 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 Pena - not a surgical candidate, would not tolerate one lung anesthesia # Acute hypoxemic respiratory failure 2/2 hospital acquired pneumonia with n ecrosis -Dr. Chan looked at the CT image, the bullae may be necrosis. Patient also had pleuritic chest pain supporting the idea of necrotic pneumonia - Patient Cefepime day 13. I discussed with Dr. Rodriguez today. He agrees that once she completes 14 days of cefepime, we can DC it. - does not endorse cough and has been afebrile - sputum and blood cultures have been negative #Hx of DM2 - presently on humalog ISS - will add levemir 10 units daily, as has been hyperglycemic in setting of steroid use. #. Sinus Tachycardia -Patient continues to be in sinus tachycardia. Likely secondary to hypoxia. Echocardiogram has resulted without any significant findings. Her tachycardia is resolving. Her HR is currently 100-110 improved from 130 -Continue Lopressor 50mg BID and Cardizem 60mg q6hr # Transient Atrial fibrillation - resolved. #. Hematuria -Has resolved. - full dose lovenox now switched to prophylactic dose #. JAQUELINE -Patient is currently on Bilevel #. Incarcerated Incisional Hernia -s/p surgical correction on 09/02/2020 -Healing well. No acute complications #. Physical Deconditioning/Debility -Patient has an extended hospital stay of over 1 month with critical illness. She is severely debilitated. She is working with physical therapy. 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 # Constipation -Bowel regimen ordered #. GI prophylaxis -Protonix #. DVT prophylaxis - reduced therapeutic dose of lovenox to prophylactic #. Right pneumothorax -Dr. Pena following, recommendations appreciated -Chest tube inserted on 11/05/2020 -Okay for PT and CPAP -continues to have air leak, chest tube to remain in place until air leak stops DISPOSITION: Pending improvement in oxygen requirements. Continue to encourage use of CPAP. Provided letter for disability, endorsing need for oxygen therapy for the next year. VS, I&O, 24H, Fishbone Vital Signs/I&O Vital Signs Date Time Temp Pulse Resp B/P (MAP) Pulse Ox O2 Delivery O2 Flow Rate FiO2 11/13/20 13:33 94 HVNI-Vapotherm 30.0 100 11/13/20 12:29 89 122/72 11/13/20 11:10 97.0 32 I&O- Last 24 Hours up to 6 AM 11/13/20 06:00 Intake Total 120 ml Output Total 2000 ml Balance -1880 ml Laboratory Data 24H LABS Laboratory Tests 2 11/12/20 18:07: Bedside Glucose (Misc Panel) 203H 11/12/20 20:39: Bedside Glucose (Misc Panel) 188H 11/13/20 04:44: Immature Granulocyte % (Auto) , Neutrophils (%) (Auto) , Nucleated Red Blood Cells % (auto) 0.5H, Neutrophils 79H, Band Neutrophils 3, Lymphocytes (Manual) 7L, Monocytes (Manual) 1, Metamyelocytes 4H, Myelocytes 2H, Atypical Lymphocytes 4, Polychromasia 1+, Anisocytosis 1+, Platelet Estimate NORMAL, Anion Gap 2L, Glomerular Filtration Rate > 60.0, Calcium Level 9.1 11/13/20 12:09: Bedside Glucose (Misc Panel) 218H CBC/BMP Laboratory Tests 11/13/20 04:44 JUANA TAYLOR MD Nov 13, 2020 14:01
[2020-11-13] MEDS: LEVEMIR (INSULIN DETEMIR) 1 UNITS/0.01ML SC SCH (15:36)
[2020-11-13] MEDS: SERTRALINE HCL 25 MG TABLET PO SCH (20:44)
[2020-11-13] MEDS: **NOTE PATIENT COMMENT** MISC XX SCH (20:45)
[2020-11-14] VITALS (18 sets, daily range): BP systolic 124–132; BP diastolic 58–76; O2SAT 90–98
[2020-11-14] MEDS: LEVALBUTEROL 1.25 MG/0.5 ML CONCENTRATE NEB NEB SCH ×4 (01:09→19:38)
[2020-11-14] MEDS: PERCOCET 5MG/325MG TAB PO PRN ×2 (04:45→18:22)
[2020-11-14 04:47] LABS: BASO # 0.1 10^3/uL (0.0-0.2); BASO % 0.6 % (0.0-1.0); HEMATOCRIT 39.1 % (36.0-47.0); HEMOGLOBIN 11.9 g/dl (12.0-15.5); LYMPH # 0.8 10^3/uL (1.5-5.0); MEAN CORPUSCULAR HEMOGLOBIN 30.4 pg (27.0-33.0); MEAN CORPUSCULAR HGB CONC 30.4 g/dl (32.0-36.5); MEAN CORPUSCULAR VOLUME 99.7 fl (80.0-96.0); MONO # 0.5 10^3/uL (0.0-0.8); MONO % 3.6 % (2.0-8.0); NEUTROPHILS # 11.6 10^3/uL (1.5-8.5); NEUTROPHILS % 85.7 % (36.0-66.0); PLATELET COUNT, AUTOMATED 413 10^3/uL (150-450); RED BLOOD COUNT 3.92 10^6/uL (4.00-5.40); WHITE BLOOD COUNT 13.5 10^3/uL (4.0-10.0)
[2020-11-14 05:07] LABS: BLOOD UREA NITROGEN 21 MG/DL (7-18); CALCIUM LEVEL 9.3 MG/DL (8.5-10.1); CARBON DIOXIDE LEVEL 35 MEQ/L (21-32); CHLORIDE LEVEL 102 MEQ/L (98-107); CREATININE FOR GFR 0.35 MG/DL (0.55-1.30); GLOMERULAR FILTRATION RATE > 60.0 (>51); GLUCOSE, FASTING 212 MG/DL (70-100); POTASSIUM SERUM 5.2 MEQ/L (3.5-5.1); SODIUM LEVEL 139 MEQ/L (136-145)
[2020-11-14] MEDS: ALPRAZolam 0.5 MG TAB PO SCH ×3 (05:40→18:20)
[2020-11-14] MEDS: SODIUM CHLORIDE 0.9% INJ 10 ML SYR IV SCH ×2 (05:41→18:22)
[2020-11-14] MEDS: HumaLOG INSULIN (NovoLOG) PER UNIT SC SCH ×4 (08:35→21:00)
[2020-11-14] MEDS: LEVEMIR (INSULIN DETEMIR) 1 UNITS/0.01ML SC SCH (08:36)
[2020-11-14] MEDS: methylPREDNISolone 40MG 1ML VIAL IV SCH ×2 (08:36→21:59)
[2020-11-14] MEDS: LIDOCAINE 5% (LIDODERM) PATCH TD SCH (08:36)
[2020-11-14] MEDS: MOM 30ML SUSPENSION UDC PO SCH (08:36)
[2020-11-14] MEDS: ANALGESIC BALM CRM 3OZ TOP SCH ×4 (08:36→22:00)
[2020-11-14] MEDS: PANTOPRAZOLE 40MG TAB (PROTONIX) PO SCH ×2 (08:37→21:59)
[2020-11-14] MEDS: guaiFENesin ER 600 MG TAB PO SCH ×2 (08:37→21:58)
[2020-11-14] MEDS: DOCUSATE SODIUM 100MG CAPSULE PO SCH ×2 (08:37→21:59)
[2020-11-14] MEDS: BACTRIM 160MG/800MG DS TAB PO SCH (08:37)
[2020-11-14] MEDS: METOPROLOL TART 25 MG TABLET PO SCH ×2 (08:37→21:59)
--- NOTE | 2020-11-14 08:51 | REP ---
INDICATION: pneumothorax. COMPARISON: Most recent comparison study is from November 13, 2020. November 12, 2020 study is also reviewed. TECHNIQUE: Portable upright AP chest radiograph. FINDINGS: A right apical chest tube remains in place. There is no visible pneumothorax. There is some right upper lobe pleural thickening. Extensive bilateral perihilar and right lower lobe infiltrates persist. A right-sided PICC line is again seen terminating in the expected location of the SVC. Monitoring electrodes are noted. Patient is status post lower cervical spine fusion and there are clips in the left upper abdomen. Heart is not enlarged.. IMPRESSION: Right apical chest tube remains in place. No change in the lung parenchyma.. <Electronically signed by Barney Rosado > 11/14/20 [id number]
--- NOTE | 2020-11-14 15:17 | IPNPDOC ---
Date Seen The patient was seen on 11/14/20. Progress Note SUBJECTIVE:Mrs. Jordan was seen at bedside this morning. She appears to be in good spirits and is much more active today. She states that she slept well, and her breathing is more comfortable now. Her chest tube cotninues to have an air leak. Using vapotherm. OBJECTIVE PHYSICAL EXAMINATION: VITAL SIGNS: please see below General: NAD, comfortable HEENT: PERRLA, EOMI, sclerae clear Neck: supple, normal ROM, no JVD Respiratory: persistent crackles at bilateral lung bases. Good air entry ellis aterally. R anterior chest tube in ituy. CVS: RRR, normal S1, S2, no murmurs Abdo: soft, obese, present bowel sounds. Extremities: no edema, pulses 2+ MSK: no joint deformities, normal ROM Neuro: no focal neuro deficits, moving all 4 extremities, CN2-12 intact. Strength 5/5 in all 4 extremities. No nystagmus. Psych: calm, cooperative, AAO x 3 LABORATORY DATA, IMAGING STUDIES, MICROBIOLOGY: Please see below. DVT prophylaxis ordered?: ASSESSMENT AND PLAN: Mrs. Jordan is a 50 year old female who is here with acute hypoxemic respiratory failure 2/2 ARDS 2/2 COVID 19 and incarcerated incis ional hernia. She has been hospitalized over a month and will require rehab. When here oxygen requirements are lower, she can be placed to rehab. Continues with Solumedrol 15mg q12h and Lovenox for IPAH. Encourage use of IS. Patient will need to use the BIPAP/CPAP as much as possible to improve her aeration. Developed R sided pneumothorax, R anterior chest tube placed by Dr. Pena on 11/05/20. PROBLEMS: # Acute hypoxemic respiratory failure 2/2 ARDS 2/2 COVID-19 -Acute COVID-19 has resolved. Patient has completed treatment with tocilizumab, remdesivir, and decadron. -Patients hypoxia is multifactorial. 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 She is on solumedrol 30 mg IV q12. PCP prophylaxis with Bactrim 1DS qD -Pulmonary medicine has been consulted and is following intermittently. -She was continued on full dose Lovenox for possible PE. She had not received a CTA initially given the severity of her hypoxia. CTA chest from 10/28/20 did not show a PE. I discussed with Dr. Coker. He believes that since there is not definitive evidence for PE, we can DC therapeutic dose lovenox and switch patient to prophylactic dose. She was high risk in setting of COVID, but has been on full dose AC since 10/08/20. On Dr. Coker's recommendation will convert lovenox dosing to prophylactic. -Patient will need to use BIPAP/CPAP as much as possible to help expand lungs. 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 Pena - not a surgical candidate, would not tolerate one lung anesthesia # Acute hypoxemic respiratory failure 2/2 hospital acquired pneumonia with n ecrosis -Dr. Chan looked at the CT image, the bullae may be necrosis. Patient also had pleuritic chest pain supporting the idea of necrotic pneumonia - Patient Cefepime day 13. I discussed with Dr. Rodriguez today. He agrees that once she completes 14 days of cefepime, we can DC it. - does not endorse cough and has been afebrile - sputum and blood cultures have been negative #Hx of DM2 - presently on humalog ISS - will add levemir 10 units daily, as has been hyperglycemic in setting of steroid use. #. Sinus Tachycardia -Patient continues to be in sinus tachycardia. Likely secondary to hypoxia. Echocardiogram has resulted without any significant findings. Her tachycardia is resolving. Her HR is currently 100-110 improved from 130 -Continue Lopressor 50mg BID and Cardizem 60mg q6hr # Transient Atrial fibrillation - resolved. #. Hematuria -Has resolved. - full dose lovenox now switched to prophylactic dose #. JAQUELINE -Patient is currently on Bilevel #. Incarcerated Incisional Hernia -s/p surgical correction on 09/02/2020 -Healing well. No acute complications #. Physical Deconditioning/Debility -Patient has an extended hospital stay of over 1 month with critical illness. She is severely debilitated. She is working with physical therapy. 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 # Constipation -Bowel regimen ordered #. GI prophylaxis -Protonix #. DVT prophylaxis - reduced therapeutic dose of lovenox to prophylactic #. Right pneumothorax -Dr. Pena following, recommendations appreciated -Chest tube inserted on 11/05/2020 -Okay for PT and CPAP -continues to have air leak, chest tube to remain in place until air leak stops DISPOSITION: Pending improvement in oxygen requirements. Provided letter for disability, endorsing need for oxygen therapy for the next year. VS, I&O, 24H, Fishbone Vital Signs/I&O Vital Signs Date Time Temp Pulse Resp B/P (MAP) Pulse Ox O2 Delivery O2 Flow Rate FiO2 11/14/20 13:08 91 HVNI-Vapotherm 35.0 100 11/14/20 12:18 86 125/58 11/14/20 12:00 97.0 18 I&O- Last 24 Hours up to 6 AM 11/14/20 06:00 Intake Total 1380 ml Output Total 1550 ml Balance -170 ml Laboratory Data 24H LABS Laboratory Tests 2 11/13/20 17:05: Bedside Glucose (Misc Panel) 230H 11/13/20 20:25: Bedside Glucose (Misc Panel) 214H 11/14/20 04:37: Immature Granulocyte % (Auto) 4.1H, Neutrophils (%) (Auto) 85.7H, Lymphocytes (%) (Auto) 6.0L, Monocytes (%) (Auto) 3.6, Eosinophils (%) (Auto) 0.0, Basophils (%) (Auto) 0.6, Neutrophils # (Auto) 11.6H, Lymphocytes # (Auto) 0.8L, Monocytes # (Auto) 0.5, Eosinophils # (Auto) 0.0, Basophils # (Auto) 0.1, Nucleated Red Blood Cells % (auto) 0.4H, Anion Gap 2L, Glomerular Filtration Rate > 60.0, Calcium Level 9.3 11/14/20 11:50: Bedside Glucose (Misc Panel) 145H CBC/BMP Laboratory Tests 11/14/20 04:37 JUANA TAYLOR MD Nov 14, 2020 15:17
[2020-11-14] MEDS: hydrOXYzine 10 MG TAB PO PRN ×2 (15:39→21:59)
[2020-11-14] MEDS: SERTRALINE HCL 25 MG TABLET PO SCH (21:59)
[2020-11-14] MEDS: **NOTE PATIENT COMMENT** MISC XX SCH (22:00)
[2020-11-15] VITALS (14 sets, daily range): BP systolic 105–119; BP diastolic 57–72; O2SAT 85–96
[2020-11-15] MEDS: LEVALBUTEROL 1.25 MG/0.5 ML CONCENTRATE NEB NEB SCH ×4 (02:29→19:17)
[2020-11-15] MEDS: ALPRAZolam 0.5 MG TAB PO SCH ×4 (06:17→17:42)
[2020-11-15] MEDS: SODIUM CHLORIDE 0.9% INJ 10 ML SYR IV SCH ×2 (06:17→18:18)
[2020-11-15 06:52] LABS: BASO # 0.1 10^3/uL (0.0-0.2); BASO % 0.5 % (0.0-1.0); EOS % 0.1 % (0.0-3.0); HEMATOCRIT 38.7 % (36.0-47.0); HEMOGLOBIN 11.9 g/dl (12.0-15.5); LYMPH % 6.6 % (24.0-44.0); MEAN CORPUSCULAR HEMOGLOBIN 30.7 pg (27.0-33.0); MEAN CORPUSCULAR HGB CONC 30.7 g/dl (32.0-36.5); MEAN CORPUSCULAR VOLUME 99.7 fl (80.0-96.0); MONO # 0.5 10^3/uL (0.0-0.8); MONO % 3.6 % (2.0-8.0); NEUTROPHILS # 12.4 10^3/uL (1.5-8.5); NEUTROPHILS % 86.5 % (36.0-66.0); PLATELET COUNT, AUTOMATED 380 10^3/uL (150-450); RED BLOOD COUNT 3.88 10^6/uL (4.00-5.40); WHITE BLOOD COUNT 14.3 10^3/uL (4.0-10.0)
[2020-11-15 07:05] LABS: BLOOD UREA NITROGEN 24 MG/DL (7-18); CALCIUM LEVEL 9.2 MG/DL (8.5-10.1); CARBON DIOXIDE LEVEL 34 MEQ/L (21-32); CHLORIDE LEVEL 99 MEQ/L (98-107); GLOMERULAR FILTRATION RATE > 60.0 (>51); GLUCOSE, FASTING 220 MG/DL (70-100); SODIUM LEVEL 139 MEQ/L (136-145)
[2020-11-15] MEDS: HumaLOG INSULIN (NovoLOG) PER UNIT SC SCH ×4 (08:04→20:01)
[2020-11-15] MEDS: LEVEMIR (INSULIN DETEMIR) 1 UNITS/0.01ML SC SCH (08:04)
[2020-11-15] MEDS: methylPREDNISolone 40MG 1ML VIAL IV SCH ×2 (08:17→20:30)
[2020-11-15] MEDS: SODIUM CHLORIDE 0.9% INJ 10 ML SYR IV PRN (08:18)
[2020-11-15] MEDS: PANTOPRAZOLE 40MG TAB (PROTONIX) PO SCH ×2 (08:20→20:30)
[2020-11-15] MEDS: METOPROLOL TART 25 MG TABLET PO SCH ×2 (08:20→20:41)
[2020-11-15] MEDS: BACTRIM 160MG/800MG DS TAB PO SCH (08:20)
[2020-11-15] MEDS: guaiFENesin ER 600 MG TAB PO SCH ×2 (08:20→20:30)
[2020-11-15] MEDS: DOCUSATE SODIUM 100MG CAPSULE PO SCH ×2 (08:21→20:31)
[2020-11-15] MEDS: MOM 30ML SUSPENSION UDC PO SCH (08:21)
[2020-11-15] MEDS: LIDOCAINE 5% (LIDODERM) PATCH TD SCH (08:22)
[2020-11-15] MEDS: ANALGESIC BALM CRM 3OZ TOP SCH ×4 (08:22→20:31)
--- NOTE | 2020-11-15 08:36 | REP ---
INDICATION: pneumothorax COMPARISON: 11/14/2020 TECHNIQUE: Portable AP view of the chest FINDINGS: Right apical chest tube and right PICC line are in stable position. Visualized portions of the mediastinum and cardiac silhouette are stable. No obvious pneumothorax. Chronic changes with superimposed bilateral mid lung and right basilar opacities essentially unchanged from prior examination. No new acute process appreciated. IMPRESSION: 1. Stable chest x-ray. No new acute process. 2. No obvious residual right apical pneumothorax. <Electronically signed by Israel Hloguin > 11/15/20 0844
--- NOTE | 2020-11-15 08:48 | IPN ---
PROGRESS NOTE DATE: 11/14/2020 SUBJECTIVE: Ms. Kumari has had a stable 24 hours. She still complains of some difficulty breathing. I checked her chest tube connection today, I found that the Pleur-Evac was completely disconnected from the chest tube. I therefore replaced the Pleur-Evac and the connection and retaped it. She did not have an air leak after reconnecting the chest tube and taping it up. Significantly, her chest x-ray showed her lung fully expanded to the chest wall. Her vital signs show a T-max of 97.8 with a heart rate that ranges between 70 and 97 and in sinus rhythm, respiratory 18 to 29 without the use of accessory muscles, 91 to 93% saturated on 100% FIO2 at 35 liters flow on the Vapotherm. Her blood pressure ranges between 132/71 and 126/66. Her intake and output over the past 24 hours was recorded as 660 in and 2350 out for a negativity of 690 ml. Her weight today is 104.5 kilos, weighed 105.7 kilos yesterday. PHYSICAL EXAMINATION: LUNGS: She still has the gurgling fluid succussion splash in the right lower hemithorax. Percussion notes are full to diaphragm. I do not hear wheezes, I do hear some faint rales over the high flow bronchophony that I can hear. CARDIAC: Without murmurs, clicks, gallops or rubs. I cannot feel her PMI. S1 and S2 are normal. ABDOMEN: Soft, nontender. Bowel sounds are positive. There is no hepatomegaly. No CVA tenderness. EXTREMITIES: Extremities today show trace to 1+ pretibial edema which is a change from the last few days. This is even in the face of what looks to be a good diuresis and maybe the I and O's are not being kept more accurately. There is no differential swelling of the upper extremities. SKIN: Warm, dry and perfused without cyanosis or mottling including that of the nailbeds and knees. NECK: Supple. There is no jugular venous distention. No subcutaneous emphysema. Trachea is midline. HEENT: The mucous membranes are pink and moist. Lips and commissures show no lesions. No thrush. Eyes: Pupils equal and reactive. Extraocular muscles intact, sclera nonicteric. NEUROLOGIC: Cranial nerves II through XII intact. Normal gross motor, normal gross sensory. Gait is not tested. PSYCHIATRIC: She is awake, alert and oriented x3 with appropriate mood and affect, and conversational. LABORATORY DATA: Her white count today is 13.5, up from 11.7 yesterday. Hemoglobin and hematocrit are 11.9 and 39.1 respectively. Platelet count is 413,000 and differential shows 85% neutrophils, 6% lymphocytes, 3% monocytes. There are no immature forms or toxic granulations reported today. Her electrolytes shows a potassium of 5.2, with a total CO2 of 35. BUN and creatinine is 21 and 0.35. Her glucose is 212 and a calcium is 9.3. Her chest x-ray shows the lung fully expanded at the chest wall. It is done portably. She still has the bilateral infiltrates. She has sharp costophrenic angles and the chest tube is in good place. There is no much change in the infiltrative patterns. IMPRESSION: 1. Spontaneous pneumothorax right side. 2. Bronchopleural fistula. 3. Hypoxic respiratory failure. 4. Necrotizing pneumonia. 5. COVID earlier this spring. 6. Post COVID fibrosis. PLAN/DISCUSSION: After having rechecked her chest tube connections and changing the Pleura-Vac and making a reconnection and retaping it, the air leak has now ceased. I am rather surprised that her lung is fully expanded to the chest wall as the chest tube was completely disconnected from the Pleur-Evac. This may all go well in that the air leak has stopped. I will continue her on twice __ suction today. If the air leak has stopped, will decrease the suction to water seal tomorrow and consider removing the chest tube sometime in the middle of the week. She does not tolerate CPAP well and she is on Vapotherm and so leaving the chest tube in prophylactically for positive pressure ventilation would not be called for.
[2020-11-15] MEDS ORDERED: ISOVUE-370 76% 100ML VIAL As Ordered ONE (10:24)
--- NOTE | 2020-11-15 12:06 | REP ---
INDICATION: re-eval pneumonia. COMPARISON: 10/28/2020. TECHNIQUE: CT chest performed following the intravenous administration of 100 cc of Isovue 370. Sagittal and coronal reconstruction images are performed. FINDINGS: Left perihilar infiltrates are less dense than on the prior study and the more inferior left lower lobe infiltrate has significantly improved with minimal residual. Right perihilar infiltrates are essentially unchanged. Posterior right lower lobe consolidation is again noted with increased size of an adjacent loculated air and fluid collection. Right chest tube is seen superiorly. A mildly enlarged lymph node in the AP window is unchanged. Heart is not significantly enlarged. There is no pericardial effusion. The thoracic aorta demonstrates mild atherosclerotic calcification with no dilatation. There are mild degenerative changes of the spine without compression deformity. IMPRESSION: Left lung infiltrates are improved as discussed above. Right lung infiltrates are essentially unchanged with increased size of a posteroinferior loculated pleural air and fluid collection. <Electronically signed by Ruy Taylor > 11/15/20 1741
--- NOTE | 2020-11-15 16:07 | IPN ---
PROGRESS NOTE DATE: 11/15/2020 SUBJECTIVE: Ms. Kumari has had an uneventful night although she still complains of shortness of breath and heaviness in her chest. Her air leak has ceased. Her lung is fully expanded to the chest wall on chest x-ray. OBJECTIVE: Her vital signs show a T-max of 98.1 with a heart rate that ranges between 72 and 96 in a sinus rhythm, respiratory rate of 22 to 24 without the use of accessory muscles. She is 90 to 94% saturated on now 40 liters Vapotherm at 100% FiO2. Her blood pressure ranges between 129/65 to 108/60. Her intake and output the past 24 hours has been recorded as 1620 in and 2200 out for a negativity of 580 mL. She weighs 103.2 kg today compared to 104.5 kg yesterday. On physical examination I still hear the amphoric sounds in her right lower hemithorax. I also hear the high-flow O2. I do not hear any wheezing. Percussion notes are full through the diaphragm. Cardiac exam is without murmurs, clicks, gallops, or rubs. I cannot feel her PMI. S1, S2 are normal. Abdomen is soft, nontender. Bowel sounds are positive. There is no hepatomegaly. No CVA tenderness. Extremities show trace pretibial edema, no calf tenderness, no differential swelling of the upper extremities. Skin is warm and dry and perfused without cyanosis or mottling including that of nailbeds and knees. Neck is supple. There is no jugular venous distention, no subcutaneous emphysema. Trachea is midline. Mouth shows the mucous membranes to be pink and moist. Lips and commissures are without lesions, no thrush. Eyes show the pupils to be equal, round, and reactive. Extraocular motions are intact. Sclerae are nonicteric. Neuro shows II-XII intact with normal gross motor, gross sensation intact. Gait is not tested. Psychiatric shows her to be awake and alert and oriented times three with appropriate mood and affect and conversational. Her white count today is up to 14.3 from 13.5 yesterday and 11.7 the day before. Hemoglobin and hematocrit are 11.9 and 38.7 respectively, essentially unchanged from yesterday. Platelet count is 380 and stable. Differential shows 85% neutrophils, 6% lymphocytes and 3% monocytes. There are no immature forms or toxic granulations reported today. Her chest x-ray shows lungs are fully expanded to the chest wall. She still has bilateral fibrotic infiltrates. ASSESSMENT: 1. Spontaneous right pneumothorax right side. 2. Bronchopleural fistula hopefully resolved. 3. Hypoxic respiratory failure. 4. Necrotizing pneumonia. 5. COVID earlier this spring. 6. Post-COVID fibrosis. PLAN AND DISCUSSION: I will put her chest to water seal today. She is not on BiPAP and I would be very tempted to remove her chest tube tomorrow if the lung remains fully expanded to the chest wall. On further thought I will probably clamp the chest tube for 24 hours and then remove it. MTDD
[2020-11-15 16:22] LABS: C REACTIVE PROTEIN QUANTITATIV < 0.30 MG/DL (0.00-0.30)
--- NOTE | 2020-11-15 19:17 | IPNPDOC ---
Date Seen The patient was seen on 11/15/20. Progress Note SUBJECTIVE:Mrs. Jordan was seen at bedside this morning. She appears to be in good spirits and is much more active today. She states that she slept well,but she complains of shortness of breath and heaviness. CXR shows expansion fully of lung. OBJECTIVE PHYSICAL EXAMINATION: VITAL SIGNS: please see below General: NAD, comfortable HEENT: PERRLA, EOMI, sclerae clear Neck: supple, normal ROM, no JVD Respiratory: persistent crackles at bilateral lung bases. Good air entry bilaterally. R anterior chest tube in ituy. CVS: RRR, normal S1, S2, no murmurs Abdo: soft, obese, present bowel sounds. Extremities: no edema, pulses 2+ MSK: no joint deformities, normal ROM Neuro: no focal neuro deficits, moving all 4 extremities, CN2-12 intact. Strength 5/5 in all 4 extremities. No nystagmus. Psych: calm, cooperative, AAO x 3 LABORATORY DATA, IMAGING STUDIES, MICROBIOLOGY: Please see below. CT chest with IV contrast (11/15/20): Left lung infiltrates are improved as discussed above. Right lung infiltrates are essentially unchanged with increased size of a posteroinferior loculated pleural air and fluid collection. DVT prophylaxis ordered?: Y ASSESSMENT AND PLAN: Mrs. Jordan is a 50 year old female who is here with acute hypoxemic respiratory failure 2/2 ARDS 2/2 COVID 19 and incarcerated incisional hernia. She has been hospitalized over a month and will require rehab. When here oxygen requirements are lower, she can be placed to rehab. Continues with Solumedrol 15mg q12h and Lovenox for IPAH. Encourage use of IS. Patient will need to use the BIPAP/CPAP as much as possible to improve her aeration. Developed R sided pneumothorax, R anterior chest tube placed by Dr. Pena on 11/05/20. PROBLEMS: # Acute hypoxemic respiratory failure 2/2 ARDS 2/2 COVID-19 -Acute COVID-19 has resolved. Patient has completed treatment with tocilizumab, remdesivir, and decadron. -Patients hypoxia is multifactorial. 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 She is on solumedrol 30 mg IV q12. PCP prophylaxis with Bactrim 1DS qD -Pulmonary medicine has been consulted and is following intermittently. -She was continued on full dose Lovenox for possible PE. She had not received a CTA initially given the severity of her hypoxia. CTA chest from 10/28/20 did not show a PE. I discussed with Dr. Coker. He believes that since there is not definitive evidence for PE, we can DC therapeutic dose lovenox and switch patient to prophylactic dose. She was high risk in setting of COVID, but has been on full dose AC since 10/08/20. On Dr. Coker's recommendation will convert lovenox dosing to prophylactic. 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 Pena - not a surgical candidate, would not tolerate one lung anesthesia - review Dr. Pena's notes, may remove chest tube tomorrow 11/16/20, but will depend on re-exam in am. # Acute hypoxemic respiratory failure 2/2 hospital acquired pneumonia with necrosis - Dr. Chan looked at the CT image, the bullae may be necrosis. Patient also had pleuritic chest pain supporting the idea of necrotic pneumonia - Patient Cefepime day 13. I discussed with Dr. Rodriguez today. He agrees that once she completes 14 days of cefepime, we can DC it. - does not endorse cough and has been afebrile - sputum and blood cultures have been negative - CT chest from 11/15/20 reviewed. L lung infiltrates improved. R lung infiltrates unchanged, increased size of posteroinferior pleural air and fluid collection - slow uptrend in WBC count - will check procal, CRP. D/w Dr. Kumar, check markers, if rising may consider additional abx - for now, c/w bactrim for PCP ppx. #Hx of DM2 - presently on humalog ISS - will add levemir 10 units daily, as has been hyperglycemic in setting of steroid use. #. Sinus Tachycardia -Patient continues to be in sinus tachycardia. Likely secondary to hypoxia. Echocardiogram has resulted without any significant findings. Her tachycardia is resolving. Her HR is currently 100-110 improved from 130 -Continue Lopressor 50mg BID and Cardizem 60mg q6hr # Transient Atrial fibrillation - resolved. #. Hematuria -Has resolved. - full dose lovenox now switched to prophylactic dose #. JAQUELINE -Patient is currently on Bilevel #. Incarcerated Incisional Hernia -s/p surgical correction on 09/02/2020 -Healing well. No acute complications #. Physical Deconditioning/Debility -Patient has an extended hospital stay of over 1 month with critical illness. She is severely debilitated. She is working with physical therapy. 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 # Constipation -Bowel regimen ordered #. GI prophylaxis -Protonix #. DVT prophylaxis - reduced therapeutic dose of lovenox to prophylactic #. Right pneumothorax -Dr. Pena following, recommendations appreciated -Chest tube inserted on 11/05/2020 -Okay for PT and CPAP -continues to have air leak, chest tube to remain in place until air leak stops DISPOSITION: Pending improvement in oxygen requirements. Continue to encourage use of CPAP. Provided letter for disability, endorsing need for oxygen therapy for the next year. VS, I&O, 24H, Fishbone Vital Signs/I&O Vital Signs Date Time Temp Pulse Resp B/P (MAP) Pulse Ox O2 Delivery O2 Flow Rate FiO2 11/15/20 18:00 97.1 115 22 107/64 (78) 91 HVNI-Vapotherm 40.0 100 I&O- Last 24 Hours up to 6 AM 11/15/20 06:00 Intake Total 900 ml Output Total 1100 ml Balance -200 ml Laboratory Data 24H LABS Laboratory Tests 2 11/14/20 21:46: Bedside Glucose (Misc Panel) 159H 11/15/20 06:16: Immature Granulocyte % (Auto) 2.7, Neutrophils (%) (Auto) 86.5H, Lymphocytes (%) (Auto) 6.6L, Monocytes (%) (Auto) 3.6, Eosinophils (%) (Auto) 0.1, Basophils (%) (Auto) 0.5, Neutrophils # (Auto) 12.4H, Lymphocytes # (Auto) 1.0L, Monocytes # (Auto) 0.5, Eosinophils # (Auto) 0.0, Basophils # (Auto) 0.1, Nucleated Red Blood Cells % (auto) 0.0, Anion Gap 6L, Glomerular Filtration Rate > 60.0, Calcium Level 9.2, C-Reactive Protein, Quantitative < 0.30 11/15/20 12:39: Bedside Glucose (Misc Panel) 229H 11/15/20 17:29: 11/15/20 17:33: Bedside Glucose (Misc Panel) 285H CBC/BMP Laboratory Tests 11/15/20 06:16 JUANA TAYLOR MD Nov 15, 2020 19:17
[2020-11-15] MEDS: NORCO, ANEXSIA 5/325MG TABLET (HYDROcodone/ACETAMINOPHEN) PO PRN (19:39)
[2020-11-15] MEDS: SERTRALINE HCL 25 MG TABLET PO SCH (20:30)
[2020-11-15] MEDS: hydrOXYzine 10 MG TAB PO PRN (20:31)
[2020-11-15] MEDS: **NOTE PATIENT COMMENT** MISC XX SCH ×2 (20:31→20:44)
[2020-11-16] VITALS (15 sets, daily range): BP systolic 106–145; BP diastolic 57–91; O2SAT 93–98
[2020-11-16] MEDS: LEVALBUTEROL 1.25 MG/0.5 ML CONCENTRATE NEB NEB SCH ×4 (02:22→19:59)
[2020-11-16] MEDS: ALPRAZolam 0.5 MG TAB PO SCH ×4 (06:00→18:16)
[2020-11-16] MEDS: SODIUM CHLORIDE 0.9% INJ 10 ML SYR IV SCH ×2 (06:10→18:18)
[2020-11-16 06:28] LABS: BASO # 0.1 10^3/uL (0.0-0.2); BASO % 0.5 % (0.0-1.0); EOS % 0.1 % (0.0-3.0); HEMATOCRIT 40.4 % (36.0-47.0); HEMOGLOBIN 12.4 g/dl (12.0-15.5); LYMPH # 1.1 10^3/uL (1.5-5.0); LYMPH % 7.4 % (24.0-44.0); MEAN CORPUSCULAR HGB CONC 30.7 g/dl (32.0-36.5); MONO # 0.8 10^3/uL (0.0-0.8); MONO % 5.4 % (2.0-8.0); NEUTROPHILS # 12.6 10^3/uL (1.5-8.5); NEUTROPHILS % 84.3 % (36.0-66.0); PLATELET COUNT, AUTOMATED 367 10^3/uL (150-450); WHITE BLOOD COUNT 14.9 10^3/uL (4.0-10.0)
[2020-11-16 06:41] LABS: BLOOD UREA NITROGEN 22 MG/DL (7-18); CALCIUM LEVEL 9.2 MG/DL (8.5-10.1); CARBON DIOXIDE LEVEL 39 MEQ/L (21-32); CHLORIDE LEVEL 99 MEQ/L (98-107); CREATININE FOR GFR 0.27 MG/DL (0.55-1.30); GLOMERULAR FILTRATION RATE > 60.0 (>51); GLUCOSE, FASTING 168 MG/DL (70-100); POTASSIUM SERUM 4.6 MEQ/L (3.5-5.1); SODIUM LEVEL 138 MEQ/L (136-145)
[2020-11-16] MEDS: MOM 30ML SUSPENSION UDC PO SCH (09:00)
[2020-11-16] MEDS: LIDOCAINE 5% (LIDODERM) PATCH TD SCH (09:07)
[2020-11-16] MEDS: LEVEMIR (INSULIN DETEMIR) 1 UNITS/0.01ML SC SCH (09:07)
[2020-11-16] MEDS: HumaLOG INSULIN (NovoLOG) PER UNIT SC SCH ×4 (09:08→21:02)
[2020-11-16] MEDS: BACTRIM 160MG/800MG DS TAB PO SCH (09:08)
[2020-11-16] MEDS: methylPREDNISolone 40MG 1ML VIAL IV SCH ×2 (09:08→21:01)
[2020-11-16] MEDS: DOCUSATE SODIUM 100MG CAPSULE PO SCH ×2 (09:08→21:02)
[2020-11-16] MEDS: guaiFENesin ER 600 MG TAB PO SCH ×2 (09:08→21:02)
[2020-11-16] MEDS: PANTOPRAZOLE 40MG TAB (PROTONIX) PO SCH ×2 (09:08→21:02)
[2020-11-16] MEDS: METOPROLOL TART 25 MG TABLET PO SCH ×2 (09:09→21:03)
[2020-11-16] MEDS: ANALGESIC BALM CRM 3OZ TOP SCH ×4 (09:10→21:04)
--- NOTE | 2020-11-16 11:26 | REP ---
INDICATION: Chesy tube assessment COMPARISON: 11/15/2020 TECHNIQUE: Portable AP view of the chest FINDINGS: Chest tube at the right apex remains essentially stable. Right PICC line with tip in the SVC. Diffuse acute on chronic interstitial and pleuroparenchymal changes remain relatively stable. No obvious new acute process. IMPRESSION: 1. Chest tube towards the right apex remains stable. 2. Stable bilateral pleuroparenchymal changes. 3. No obvious new acute process identified. <Electronically signed by Israel Holguin > 11/16/20 1122
--- NOTE | 2020-11-16 15:02 | IPN ---
PROGRESS NOTE DATE: 11/16/2020 Ms. Kumari continues on the VapoTherm at 100%. There is no chest tube leak, and her lung is fully expanded to the chest wall on the chest x-ray. Her vital signs show a maximum temperature of 97.0 with a heart rate that ranges between 83-122 in a sinus rhythm, respiratory rate of 25-30 without the use of accessory muscles, who is 88%-96% saturated now on 40 liters nasal cannula at 100% FiO2. Her blood pressure is ranging between 113/59 to 145/68. Her intake and output for the past 24 hours have been recorded as 990 in and 1650 out, for a negativity of 660 mL. She weighs 103.2 kg today, which is the same as yesterday. PHYSICAL EXAMINATION: Her lungs still show the very short inspiratory times with the amphoric breath sounds at the very base of the right hemithorax. Percussion note is full to the diaphragm. I hear some faint rales, although they are difficult to ascertain as her inspiratory period is so short. There is no wheezing. Cardiac exam is without murmurs, clicks, gallops, or rubs. I cannot feel her point of maximal impulse (PMI). S1 and S2 are normal. Abdomen is soft and nontender. Bowel sounds are positive. There is no hepatomegaly. No costovertebral angle (CVA) tenderness. Extremities show trace pretibial edema, no calf tenderness, no differential swelling of the upper extremities. Skin is warm, dry, and perfused without cyanosis or mottling, including that of the nailbeds and knees. Neck is supple. There is no jugular venous distention. No subcutaneous emphysema. Trachea is midline. Mouth shows the mucous membranes to be pink and moist. Lips and commissures without lesions. No thrush. Eyes show her pupils to be equal and reactive. Extraocular motion intact. Sclerae anicteric. Neurologic shows II-XII intact. Normal gross motor, gross sensation intact. Gait is not tested. Psychiatric shows her to be awake, alert, and oriented times three with appropriate mood and affect and conversational. Her white count today is 14.9 with a hemoglobin and hematocrit of 12.4 and 40.4, respectively. Platelet count is 367 and stable, and differential shows 85% neutrophils, 7% lymphocytes, 5% monocytes. There are no immature forms or toxic granulations. Her chemistries today show normal electrolytes except for an elevated total CO2 of 39. BUN and creatinine are 22 and 0.27. Glucose is 168, and a calcium is 9.2. Her chest x-ray this morning shows the lung fully expanded to the chest wall. It looks as though she has bullae or lucencies in the medial aspect of the lower hemithorax. A CT was obtained on her yesterday, which shows all the cystic changes, including the what looks to be bullous disease. This does not look like a pneumothorax, as there are septa traversing the airspaces. There is a small air-fluid level in that airspace within the bullae. Otherwise, the lung is fully expanded to the chest wall, and the chest tube is in good place. She has the fibrotic, reticular, nodular opacities, particularly in the upper lobes. IMPRESSION: 1. Spontaneous pneumothorax, right side. 2. Bronchopleural fistula, hopefully resolved. 3. Hypoxic respiratory failure. 4. Necrotizing pneumonia. 5. COVID earlier in the spring. 6. Post-COVID fibrosis. 7. Lower lobe bullous disease within an air-fluid level. PLAN AND DISCUSSION: I will clamp the chest tube today. The fluid level within the bullous gets me a little bit worried about an impending lung abscess. Her white count is elevated but rather stable. There are no other septic signs. She has been on antibiotics almost her entire hospitalization here. Being that she is asymptomatic, I am not keen on restarting pulmonary antibiotics. If the lung is fully expanded to the chest wall tomorrow, I will remove the chest tube.
[2020-11-16] MEDS: ACETAMINOPHEN TAB 650MG DOSE (2X325MG) PO PRN (15:27)
--- NOTE | 2020-11-16 19:15 | IPNPDOC ---
Subjective Date Seen The patient was seen on 11/16/20. Subjective Chief Complaint/HPI Does not have any complaints today. remains of 40l/ 100% vapotherm with spo2. Chest tube was clamped today. Objective Physical Examination General Exam: Positive: Alert, Cooperative, No Acute Distress Eye Exam: Negative: Sclera icteric ENT Exam: Positive: Atraumatic, Mucous membr. moist/pink, Pharynx Normal Neck Exam: Positive: Supple Chest Exam: Positive: Other (bilateral diffuse crackles fine, right diminished breath sounds at the base. ) Heart Exam: Positive: Rate Normal, Regular Rhythm, Normal S1, Normal S2; Negative: Murmurs, Rubs Abdomen Exam: Positive: Normal bowel sounds, Soft; Negative: Tenderness, Hepatospenomegaly Neuro Exam: Positive: Normal Speech Psych Exam: Positive: Memory Intact, Oriented x 3 Assessment /Plan Assessment Mrs. Jordan is a 50 year old female with PMH of morbid obesity s/p gastric sleeve surgery in 07/2019, a history of DM that had resolved post bariatric surgery and asthma, who presented to [facility] ED with right lower abdominal pain , nausea and vomiting and was admitted for strangulated lower abdominal incisional hernia with small bowel obstruction on 09/01/20 and then incidentally found to be COVID positive. 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 She did well initially then started decompensating from her COVID infection on 09/05/20 with increasing oxygen requirements. She developed ARDS with acute hypoxic respiratory failure and ultimately was intubated on 09/15/20. She was successfully extubated to BIPAP on 09/23/20. Hospital course was further complicated by development of right necrotizing pneumonia. 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 She remains persistently hypoxic at this time due to multiple issues : ILD - post COVID, right sided lung destruction from complicated necrotizing pneumonia. Persistent Acute hypoxemic respiratory failure Initially due to 2/2 ARDS /2 COVID-19 and now post COVID interstitial lung disease, Right sided lung destruction from necrotizing pneumonia She is on solumedrol 30 mg IV q12. PCP prophylaxis with Bactrim Pulmonary medicine has been consulted and is following intermittently. She was continued on full dose Lovenox for possible PE. She had not received a CTA initially given the severity of her hypoxia. CTA chest from 10/28/20 did not show a PE. So DCed therapeutic dose lovenox and switched patient to prophylactic dose. s/p Acute COVID-19 Patient has completed treatment with tocilizumab, remdesivir, and decadron. COVID on 10/28/20 negative. S/P Right sided necrotizing pneumonia complicated by right pneumothorax and bronchopleural fistula. Finished [address] chest from 11/15/20 reviewed. L lung infiltrates improved. R lung infiltrates unchanged, increased size of posteroinferior pleural air and fluid collection procal not elevated, Chest tube from 11/05/20, As per Dr Pena. continue current pain regimen continue levalbuterol. DM2 in the setting of steroid use. Levemir and lispro Sinus Tachycardia improving Likely secondary to hypoxia. Echocardiogram has resulted without any significant findings. Her tachycardia is resolving. Her HR is currently 100-110 improved from 130 Continue Lopressor 50mg BID reduced cardizem to tid. Transient Atrial fibrillation resolved. JAQUELINE Not using CPAP will have to discuss with Dr Pena about when it can be resumed after iván bronchopleural fistula is resolved. Incarcerated right lower abdominal Incisional Hernia s/p surgical correction on 09/02/2020 healed Physical Deconditioning/Debility Patient has an extended hospital stay of over 1 month with critical illness. She is severely debilitated. She is working with physical therapy. She will need detention rehab pending clinical improvement. Constipation Bowel regimen ordered Asthma continue levoalbuterol, solumedrol. Anxiety better controlled now will reduce dose of xanax. continue atarax prn. GI prophylaxis Protonix DISPOSITION: Pending improvement in oxygen requirements. Continue to encourage use of CPAP. Provided letter for disability, endorsing need for oxygen therapy for the next year. Plan/VTE VTE Prophylaxis Ordered?: Yes VS, I&O, 24H, Fishbone Vital Signs/I&O Vital Signs Date Time Temp Pulse Resp B/P (MAP) Pulse Ox O2 Delivery O2 Flow Rate FiO2 11/16/20 17:00 98 40.0 100 11/16/20 16:00 97.8 107 34 116/57 (76) HVNI-Vapotherm I&O- Last 24 Hours up to 6 AM 11/16/20 07:00 Intake Total 750 ml Output Total 1000 ml Balance -250 ml Laboratory Data 24H LABS Laboratory Tests 2 11/15/20 19:44: Bedside Glucose (Misc Panel) 181H 11/16/20 04:57: Immature Granulocyte % (Auto) 2.3, Neutrophils (%) (Auto) 84.3H, Lymphocytes (%) (Auto) 7.4L, Monocytes (%) (Auto) 5.4, Eosinophils (%) (Auto) 0.1, Basophils (%) (Auto) 0.5, Neutrophils # (Auto) 12.6H, Lymphocytes # (Auto) 1.1L, Monocytes # (Auto) 0.8, Eosinophils # (Auto) 0.0, Basophils # (Auto) 0.1, Nucleated Red Blood Cells % (auto) 0.0, Anion Gap 0L, Glomerular Filtration Rate > 60.0, Calcium Level 9.2 11/16/20 12:04: Bedside Glucose (Misc Panel) 121H 11/16/20 15:19: Bedside Glucose (Misc Panel) 310H 11/16/20 18:02: Bedside Glucose (Misc Panel) 266H CBC/BMP Laboratory Tests 11/16/20 04:57 MATTHEW VARGAS MD Nov 16, 2020 19:11
[2020-11-16] MEDS: SERTRALINE HCL 25 MG TABLET PO SCH (21:02)
[2020-11-16] MEDS: **NOTE PATIENT COMMENT** MISC XX SCH (21:04)
[2020-11-16] MEDS: ALPRAZolam 0.25 MG TAB PO SCH (23:15)
[2020-11-17] VITALS (17 sets, daily range): BP systolic 113–138; BP diastolic 55–68; O2SAT 87–97
[2020-11-17] MEDS: LEVALBUTEROL 1.25 MG/0.5 ML CONCENTRATE NEB NEB SCH ×4 (02:00→20:00)
[2020-11-17 04:41] LABS: BASO # 0.1 10^3/uL (0.0-0.2); BASO % 0.6 % (0.0-1.0); EOS % 0.1 % (0.0-3.0); HEMATOCRIT 38.8 % (36.0-47.0); LYMPH # 0.6 10^3/uL (1.5-5.0); LYMPH % 4.9 % (24.0-44.0); MEAN CORPUSCULAR HGB CONC 30.9 g/dl (32.0-36.5); MEAN CORPUSCULAR VOLUME 100.3 fl (80.0-96.0); MONO # 0.4 10^3/uL (0.0-0.8); MONO % 3.4 % (2.0-8.0); NEUTROPHILS # 10.9 10^3/uL (1.5-8.5); NEUTROPHILS % 88.2 % (36.0-66.0); PLATELET COUNT, AUTOMATED 300 10^3/uL (150-450); RED BLOOD COUNT 3.87 10^6/uL (4.00-5.40); WHITE BLOOD COUNT 12.3 10^3/uL (4.0-10.0)
[2020-11-17 04:57] LABS: BLOOD UREA NITROGEN 24 MG/DL (7-18); CARBON DIOXIDE LEVEL 37 MEQ/L (21-32); CHLORIDE LEVEL 101 MEQ/L (98-107); CREATININE FOR GFR 0.25 MG/DL (0.55-1.30); GLOMERULAR FILTRATION RATE > 60.0 (>51); GLUCOSE, FASTING 222 MG/DL (70-100); POTASSIUM SERUM 4.9 MEQ/L (3.5-5.1); SODIUM LEVEL 141 MEQ/L (136-145)
[2020-11-17] MEDS: ALPRAZolam 0.25 MG TAB PO SCH ×3 (05:38→17:43)
[2020-11-17] MEDS: SODIUM CHLORIDE 0.9% INJ 10 ML SYR IV SCH ×2 (05:40→17:43)
[2020-11-17] MEDS: DOCUSATE SODIUM 100MG CAPSULE PO SCH ×2 (09:00→20:59)
[2020-11-17] MEDS: ANALGESIC BALM CRM 3OZ TOP SCH ×4 (09:00→21:08)
[2020-11-17] MEDS: MOM 30ML SUSPENSION UDC PO SCH (09:00)
[2020-11-17] MEDS: LIDOCAINE 5% (LIDODERM) PATCH TD SCH (09:00)
--- NOTE | 2020-11-17 10:24 | REP ---
INDICATION: pneumothorax. COMPARISON: Multiple latest 11/16/2020 TECHNIQUE: Portable FINDINGS: The technique utilized in obtaining the radiograph has magnified the cardiac silhouette and accentuated the interstitial markings. Cardiomediastinal silhouette is unchanged. The lung nuñez are unchanged. The right-sided thoracotomy tube and PICC line catheter are unchanged. The osseous structures are unchanged. IMPRESSION: There is no evidence of significant change. <Electronically signed by Devonte Aragon > 11/17/20 1024
[2020-11-17] MEDS: LEVEMIR (INSULIN DETEMIR) 1 UNITS/0.01ML SC SCH ×2 (10:34→21:06)
[2020-11-17] MEDS: PANTOPRAZOLE 40MG TAB (PROTONIX) PO SCH ×2 (10:35→21:04)
[2020-11-17] MEDS: ACETAMINOPHEN TAB 650MG DOSE (2X325MG) PO PRN (10:36)
[2020-11-17] MEDS: guaiFENesin ER 600 MG TAB PO SCH ×2 (10:37→21:05)
[2020-11-17] MEDS: METOPROLOL TART 25 MG TABLET PO SCH ×2 (10:37→21:05)
[2020-11-17] MEDS: BACTRIM 160MG/800MG DS TAB PO SCH (10:37)
[2020-11-17] MEDS: HumaLOG INSULIN (NovoLOG) PER UNIT SC SCH ×4 (10:38→20:55)
[2020-11-17] MEDS: methylPREDNISolone 40MG 1ML VIAL IV SCH ×2 (10:39→21:07)
--- NOTE | 2020-11-17 10:58 | IPNPDOC ---
Subjective Date Seen The patient was seen on 11/17/20. Subjective Chief Complaint/HPI No new events overnight. This am she is tachycardic to 120s but is asymptomatic. No fever or chills, no sob.Denies any pain. remains of 40 l / 100%. chest tube was clamped yesterday. Objective Physical Examination General Exam: Positive: Alert, Cooperative, No Acute Distress Eye Exam: Negative: Sclera icteric ENT Exam: Positive: Atraumatic, Mucous membr. moist/pink, Pharynx Normal Neck Exam: Positive: Supple Chest Exam: Positive: Other (bilateral diffuse crackles fine, right diminished breath sounds at the base. ) Heart Exam: Positive: Rate Normal, Regular Rhythm, Normal S1, Normal S2; Negative: Murmurs, Rubs Abdomen Exam: Positive: Normal bowel sounds, Soft; Negative: Tenderness, Hepatospenomegaly Neuro Exam: Positive: Normal Speech Psych Exam: Positive: Memory Intact, Oriented x 3 Assessment /Plan Assessment Mrs. Jordan is a 50 year old female with PMH of morbid obesity s/p gastric sleeve surgery in 07/2019, a history of DM that had resolved post bariatric surgery and asthma, who presented to [facility] ED with right lower abdominal pain , nausea and vomiting and was admitted for strangulated lower abdominal incisional hernia with small bowel obstruction on 09/01/20 and then incidentally found to be COVID positive. 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 She did well initially then started decompensating from her COVID infection on 09/05/20 with increasing oxygen requirements. She developed ARDS with acute hypoxic respiratory failure and ultimately was intubated on 09/15/20. She was successfully extubated to BIPAP on 09/23/20. Hospital course was further complicated by development of right necrotizing pneumonia. 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 She remains persistently hypoxic at this time due to multiple issues : ILD - post COVID, right sided lung destruction from complicated necrotizing pneumonia. Persistent hypoxemic respiratory failure Initially due to 2/2 ARDS 2/2 COVID-19 and now post COVID interstitial lung disease, fibrosis, Right sided lung destruction from necrotizing pneumonia She is on solumedrol 30 mg IV q12. PCP prophylaxis with Bactrim Pulmonary medicine has been consulted and is following intermittently. She was continued on full dose Lovenox for possible PE. She had not received a CTA initially given the severity of her hypoxia. CTA chest from 10/28/20 did not show a PE. So DCed therapeutic dose lovenox and switched patient to prophylactic dose. will start tapering of steroids about 5-10 mg / week. s/p Acute COVID-19 Patient has completed treatment with tocilizumab, remdesivir, and decadron. COVID on 10/28/20 negative. S/P Right sided necrotizing pneumonia complicated by right pneumothorax and bronchopleural fistula. Finished [address] chest from 11/15/20 reviewed. L lung infiltrates improved. R lung infiltrates unchanged, increased size of posteroinferior pleural air and fluid collection procal not elevated, Chest tube from 11/05/20, As per Dr Pena. continue current pain regimen continue levalbuterol. Right lung will always remain at risk for getting recurrent bacterial/ fungal infections due to cavity. DM2 in the setting of steroid use. Levemir and lispro Sinus Tachycardia improving Likely secondary to hypoxia. Echocardiogram has resulted without any significant findings. Her tachycardia is resolving. Her HR is currently 100-110 improved from 130 Continue Lopressor 50mg BID reduced cardizem to tid. Transient Atrial fibrillation resolved. JAQUELINE Not using CPAP will have to discuss with Dr Pena about when it can be resumed after iván bronchopleural fistula is resolved. Incarcerated right lower abdominal Incisional Hernia s/p surgical correction on 09/02/2020 healed Physical Deconditioning/Debility Patient has an extended hospital stay of over 1 month with critical illness. She is severely debilitated. She is working with physical therapy. She will need prison rehab pending clinical improvement. Constipation Bowel regimen ordered Asthma continue levoalbuterol, solumedrol. Anxiety better controlled now will reduce dose of xanax. continue atarax prn. GI prophylaxis Protonix DISPOSITION: Pending improvement in oxygen requirements. Continue to encourage use of CPAP. Provided letter for disability, endorsing need for oxygen therapy for the next year. Plan/VTE VTE Prophylaxis Ordered?: Yes VS, I&O, 24H, Fishbone Vital Signs/I&O Vital Signs Date Time Temp Pulse Resp B/P (MAP) Pulse Ox O2 Delivery O2 Flow Rate FiO2 6/16/21 10:37 102 124/68 11/17/20 08:00 98.6 18 92 HVNI-Vapotherm 11/17/20 04:00 40.0 100 I&O- Last 24 Hours up to 6 AM 11/17/20 06:00 Intake Total 840 ml Output Total 1500 ml Balance -660 ml Laboratory Data 24H LABS Laboratory Tests 2 11/16/20 12:04: Bedside Glucose (Misc Panel) 121H 11/16/20 15:19: Bedside Glucose (Misc Panel) 310H 11/16/20 18:02: Bedside Glucose (Misc Panel) 266H 11/16/20 20:02: Bedside Glucose (Misc Panel) 267H 11/17/20 04:25: Immature Granulocyte % (Auto) 2.8, Neutrophils (%) (Auto) 88.2H, Lymphocytes (%) (Auto) 4.9L, Monocytes (%) (Auto) 3.4, Eosinophils (%) (Auto) 0.1, Basophils (%) (Auto) 0.6, Neutrophils # (Auto) 10.9H, Lymphocytes # (Auto) 0.6L, Monocytes # (Auto) 0.4, Eosinophils # (Auto) 0.0, Basophils # (Auto) 0.1, Nucleated Red Blood Cells % (auto) 0.0, Anion Gap 3L, Glomerular Filtration Rate > 60.0, Calcium Level 9.0 CBC/BMP Laboratory Tests 11/17/20 04:25 MATTHEW VARGAS MD Nov 17, 2020 10:58
[2020-11-17] MEDS: PERCOCET 5MG/325MG TAB PO PRN (14:08)
[2020-11-17] MEDS: SERTRALINE HCL 25 MG TABLET PO SCH (21:05)
[2020-11-17] MEDS: **NOTE PATIENT COMMENT** MISC XX SCH (21:08)
[2020-11-18] VITALS (20 sets, daily range): BP systolic 105–137; BP diastolic 53–73; O2SAT 85–98
[2020-11-18] MEDS: ALPRAZolam 0.25 MG TAB PO SCH ×4 (00:12→17:57)
[2020-11-18] MEDS: LEVALBUTEROL 1.25 MG/0.5 ML CONCENTRATE NEB NEB SCH ×4 (01:47→20:13)
[2020-11-18] MEDS: SODIUM CHLORIDE 0.9% INJ 10 ML SYR IV SCH ×2 (04:33→17:58)
[2020-11-18 04:54] LABS: BASO # 0.1 10^3/uL (0.0-0.2); BASO % 0.5 % (0.0-1.0); EOS % 0.1 % (0.0-3.0); HEMATOCRIT 38.6 % (36.0-47.0); HEMOGLOBIN 12.1 g/dl (12.0-15.5); LYMPH # 0.7 10^3/uL (1.5-5.0); LYMPH % 4.2 % (24.0-44.0); MEAN CORPUSCULAR HEMOGLOBIN 31.5 pg (27.0-33.0); MEAN CORPUSCULAR HGB CONC 31.3 g/dl (32.0-36.5); MEAN CORPUSCULAR VOLUME 100.5 fl (80.0-96.0); MONO # 0.5 10^3/uL (0.0-0.8); MONO % 2.9 % (2.0-8.0); NEUTROPHILS # 14.1 10^3/uL (1.5-8.5); NEUTROPHILS % 89.1 % (36.0-66.0); PLATELET COUNT, AUTOMATED 280 10^3/uL (150-450); RED BLOOD COUNT 3.84 10^6/uL (4.00-5.40); WHITE BLOOD COUNT 15.8 10^3/uL (4.0-10.0)
[2020-11-18] MEDS: guaiFENesin ER 600 MG TAB PO SCH ×2 (08:19→20:33)
[2020-11-18] MEDS: BACTRIM 160MG/800MG DS TAB PO SCH (08:19)
[2020-11-18] MEDS: METOPROLOL TART 25 MG TABLET PO SCH ×2 (08:19→20:34)
[2020-11-18] MEDS: PANTOPRAZOLE 40MG TAB (PROTONIX) PO SCH ×2 (08:20→20:33)
[2020-11-18] MEDS: LIDOCAINE 5% (LIDODERM) PATCH TD SCH (08:20)
[2020-11-18] MEDS: HumaLOG INSULIN (NovoLOG) PER UNIT SC SCH ×4 (08:21→20:36)
[2020-11-18] MEDS: methylPREDNISolone 40MG 1ML VIAL IV SCH ×2 (08:22→20:35)
[2020-11-18] MEDS: MOM 30ML SUSPENSION UDC PO SCH (08:22)
[2020-11-18] MEDS: LEVEMIR (INSULIN DETEMIR) 1 UNITS/0.01ML SC SCH ×2 (08:22→20:36)
[2020-11-18] MEDS: ANALGESIC BALM CRM 3OZ TOP SCH ×4 (08:22→20:35)
[2020-11-18] MEDS: DOCUSATE SODIUM 100MG CAPSULE PO SCH ×2 (08:23→20:36)
--- NOTE | 2020-11-18 08:29 | REP ---
INDICATION: right pneumothorax COMPARISON: 11/18/2019 TECHNIQUE: Portable AP view of the chest FINDINGS: Right-sided chest tube is in stable position at the apex. Right PICC line in stable position with tip in the SVC. Bilateral acute/chronic pleuroparenchymal changes are relatively stable. No obvious new acute process is appreciated. No obvious residual new right pneumothorax identified. Mediastinum and cardiac silhouette are stable and within normal limits. Skeletal structures are intact. IMPRESSION: No significant change from prior examination. No obvious residual right apical pneumothorax identifiable. <Electronically signed by Israel Holguin > 11/18/20 0427
--- NOTE | 2020-11-18 11:18 | IPN ---
PROGRESS NOTE DATE: 11/17/2020 SUBJECTIVE: I am seeing Mrs. Kumari late in the afternoon after surgery. She is doing quite well and is status quo. She is still on 40 liters Vapotherm nasal cannula at 100% O2. She states her breathing has not changed overnight with the chest tube being clamped. OBJECTIVE: VITAL SIGNS: T-max 100.0 with heart rate that ranges between 91 and 115 in sinus rhythm, respiratory rate 18 to 26 without the use of accessory muscles, 87 to 97% saturated on the above Vapotherm. Blood pressure ranges between 130/68 to 111/65. INTAKE/OUTPUT: Over the past 24 hours has been recorded as 720 in and 1,500 out for a negativity of 780 cc. Her weight today is 104.1 kilos compared to 103.2 kilos yesterday. As her chest tube has been clamped, there has been nothing out of her chest tube and of course there is no air leak. PHYSICAL EXAMINATION: LUNGS: Show bilateral wheezing today during both inspiration and expiration. It is greater during expiration. Percussion notes are full to the diaphragm. Breath sounds are equal on either side. CARDIAC: Without murmurs, clicks, gallops, rubs. I cannot feel a PMI. S1, S2 normal. ABDOMEN: Soft, nontender. Bowel sounds are positive. No hepatomegaly. No CVA tenderness. EXTREMITIES: Show no pretibial edema. No calf tenderness. No differential swelling of the upper extremities. SKIN: Warm, dry and perfused without cyanosis or mottling including that of the nail beds and knees. NECK: Supple. There is no jugular venous distention. No subcutaneous emphysema. Trachea is midline. MOUTH: Shows the mucous membranes to be pink and moist. Lips and commisures are without lesions and no thrush. EYES: Show his pupils equal and reactive. Extraocular muscles are intact. Sclerae nonicteric. NEUROLOGIC: Shows II through XII intact. Normal gross motor, gross sensation intact. Gait is not tested. PSYCHIATRIC: Shows her to be awake, alert, and oriented x3 with appropriate mood and affect and conversational. LABORATORY DATA: White count today 12.3 down from 14.9 yesterday. Hemoglobin and hematocrit 12.0 and 38.8 respectively. Platelet count 300,000 and stable. Differential shows 88% neutrophils, 5% lymphocytes, 3% monocytes. Normal troponins. Her electrolytes today show sodium 141 with potassium 4.9 and elevated total CO2 of 37. BUN and creatinine are 24 and 0.25 respectively with glucose 222 and calcium 9.0. IMAGING: Chest x-ray shows lungs fully expanded to the chest wall. Chest tubes are in good place. There is no pneumothorax at the cupula. She still has the same infiltrates. IMPRESSION: 1. Spontaneous pneumothorax right side. 2. Bronchopleural fistula; hopefully resolved. 3. Hypoxic respiratory failure. 4. Necrotizing pneumonia. 5. COVID over the spring. 6. Post COVID fibrosis. 7. Lower lobe bolus disease with air fluid level on CT scanning. PLAN/DISCUSSION: As of late in the afternoon, I am going to defer removing the chest tube until tomorrow morning. Should she get into trouble tonight, I will not be available at about 20 minutes away. My intention was to remove the chest tube this morning, but that did not happen. I am pleased that her white count has come down a bit. MTDD
--- NOTE | 2020-11-18 11:25 | IPN ---
PROGRESS NOTE DATE: 11/18/2020 SUBJECTIVE: Ms. Kumari had a stable night. She feels slightly better although she is still on 40 liters of Vapotherm flow at 100%. Her breathing has not changed. OBJECTIVE: Her vital signs show a T-max 97.4 with a heart rate that ranges between 80 and 93 in a sinus rhythm, respiratory rate of 28-23 without the use of accessory muscles. She is 93-95% saturated on the above Vapotherm settings. Blood pressure ranges between 124/62 to 105/53. Her intake and output the past 24 hours has been recorded as 1780 in and 300 out for a positivity of 1480 mL. She weighs 104.6 kg today compared to 104.1 kg yesterday. Chest tube has been clamped. There is no air leak and there is nothing out of it. On physical examination her wheezing is resolved this morning. She has equal breath sounds on either side with fine crackles in both sides. Percussion notes are full through the diaphragm. Cardiac exam is without murmurs, clicks, gallops, or rubs. I cannot feel her PMI. S1, S2 are normal. Abdomen is soft, nontender. Bowel sounds are positive. There is no hepatomegaly. No CVA tenderness. Extremities show no pretibial edema, no calf tenderness, no differential swelling of the upper extremities. Skin is warm and dry and perfused without cyanosis or mottling including that of nailbeds and knees. Neck is supple. There is no jugular venous distention, no subcutaneous emphysema. Trachea is midline. Mouth shows the mucous membranes to be pink and moist. Lips and commissures show no thrush. Eyes show the pupils to be equal and reactive. Extraocular movements are intact. Sclerae are nonicteric. Neuro shows II-XII intact with normal gross motor, gross sensation intact. Gait is not tested. Psychiatric shows her to be awake and alert and oriented times three with appropriate mood and affect and conversational. Her white count today is again up to 15.8 from 12.3 yesterday. Hemoglobin and hematocrit are 12.1 and 38.6. Platelet count is 280 and stable. Differential shows 89% neutrophils, 4% lymphocytes and 3% monocytes. There are no immature forms or toxic granulations. Her chemistries are still pending. Her chest x-ray again shows her lung fully expanded to the chest wall. There is no pneumothorax and the chest tube is in good placement at the cupula. She still has the bilateral infiltrates particularly in the mid lung nuñez. Costophrenic angles are sharp. There is no subcutaneous emphysema. ASSESSMENT: 1. Spontaneous pneumothorax right side. 2. Bronchopleural fistula, hopefully resolved. 3. Hypoxic respiratory failure. 4. Necrotizing pneumonia. 5. COVID earlier this spring. 6. Post-COVID fibrosis. 7. Right lower lobe bullous disease. PLAN AND DISCUSSION: I will remove her chest tube today. She certainly is still at risk for recurrent pneumothorax secondary to her bullous disease in the lower lobe. She did have a slight elevation of temperature yesterday with a T-max of 100 but that is now resolved. She is on Bactrim DS. I do not see a positive urine culture. We will closely follow her chest x-rays over the next few days.
[2020-11-18] MEDS: LEVALBUTEROL 1.25 MG/0.5 ML CONCENTRATE NEB NEB PRN (16:38)
--- NOTE | 2020-11-18 18:59 | IPNPDOC ---
Subjective Date Seen The patient was seen on 11/18/20. Subjective Chief Complaint/HPI No events overnight. planned for removal of chest tube today. WBC remains elevated though recent crp and procal has been negative , no new fever. Complains of dryness of the nose and feels the air is blowing too hard. Objective Physical Examination General Exam: Positive: Alert, Cooperative, No Acute Distress Eye Exam: Negative: Sclera icteric ENT Exam: Positive: Atraumatic, Mucous membr. moist/pink, Pharynx Normal Neck Exam: Positive: Supple Chest Exam: Positive: Other (bilateral diffuse crackles fine, right diminished breath sounds at the base. ) Heart Exam: Positive: Rate Normal, Regular Rhythm, Normal S1, Normal S2; Negative: Murmurs, Rubs Abdomen Exam: Positive: Normal bowel sounds, Soft; Negative: Tenderness, Hepatospenomegaly Neuro Exam: Positive: Normal Speech Psych Exam: Positive: Memory Intact, Oriented x 3 Assessment /Plan Assessment Mrs. Jordan is a 50 year old female with PMH of morbid obesity s/p gastric sleeve surgery in 07/2019, a history of DM that had resolved post bariatric surgery and asthma, who presented to [facility] ED with right lower abdominal pain , nausea and vomiting and was admitted for strangulated lower abdominal incisional hernia with small bowel obstruction on 09/01/20 and then incidentally found to be COVID positive. 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 She did well initially then started decompensating from her COVID infection on 09/05 with increasing oxygen requirements. She developed ARDS with acute hypoxic respiratory failure and ultimately was intubated on 09/15/20. She was successfully extubated to BIPAP on 09/23/20. Hospital course was further complicated by development of right necrotizing pneumonia. 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 She remains persistently hypoxic at this time due to multiple issues : ILD - post COVID, right sided lung destruction from complicated necrotizing pneumonia. Persistent hypoxemic respiratory failure Initially due to 2/2 ARDS 2/2 COVID-19 and now post COVID interstitial lung disease, fibrosis, Right sided lung destruction from necrotizing pneumonia She is on solumedrol 30 mg IV q12. PCP prophylaxis with Bactrim Pulmonary medicine has been consulted and is following intermittently. She was continued on full dose Lovenox for possible PE. She had not received a CTA initially given the severity of her hypoxia. CTA chest from 10/28/20 did not show a PE. So DCed therapeutic dose lovenox and switched patient to prophylactic dose. will start tapering of steroids about 5-10 mg / week. Persistent leucocytosis WBC is elevated . recent crp and procal has been negative , no new fever. Likely due to steroids. however she is high risk of getting recurrent infections bacteria/fungal specially with cavity in her right lung. s/p Acute COVID-19 Patient has completed treatment with tocilizumab, remdesivir, and decadron. COVID on 10/28/20 negative. S/P Right sided necrotizing pneumonia complicated by right pneumothorax and bronchopleural fistula. Finished [address] chest from 11/15/20 reviewed. L lung infiltrates improved. R lung infiltrates unchanged, increased size of posteroinferior pleural air and fluid collection procal not elevated, Chest tube from 11/05/20, As per Dr Pena. continue current pain regimen continue levalbuterol. Right lung will always remain at risk for getting recurrent bacterial/ fungal infections due to cavity. DM2 in the setting of steroid use. Levemir and lispro Sinus Tachycardia improving Likely secondary to hypoxia. Echocardiogram has resulted without any significant findings. Her tachycardia is resolving. Her HR is currently 100-110 improved from 130 Continue Lopressor 50mg BID reduced cardizem to tid. Transient Atrial fibrillation resolved. JAQUELINE Not using CPAP will have to discuss with Dr Pena about when it can be resumed after iván bronchopleural fistula is resolved. Incarcerated right lower abdominal Incisional Hernia s/p surgical correction on 09/02/2020 healed Physical Deconditioning/Debility Patient has an extended hospital stay of over 1 month with critical illness. She is severely debilitated. She is working with physical therapy. 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 Constipation Bowel regimen ordered Asthma continue levoalbuterol, solumedrol. Anxiety better controlled now will reduce dose of xanax. continue atarax prn. GI prophylaxis Protonix DISPOSITION: Pending improvement in oxygen requirements. Continue to encourage use of CPAP. Provided letter for disability, endorsing need for oxygen therapy for the next year. Plan/VTE VTE Prophylaxis Ordered?: Yes VS, I&O, 24H, Fishbone Vital Signs/I&O Vital Signs Date Time Temp Pulse Resp B/P (MAP) Pulse Ox O2 Delivery O2 Flow Rate FiO2 11/18/20 07:26 97.4 84 20 124/62 (82) 95 HVNI-Vapotherm 40.0 11/18/20 04:00 100 I&O- Last 24 Hours up to 6 AM 11/18/20 06:00 Intake Total 1780 ml Output Total 800 ml Balance 980 ml Laboratory Data 24H LABS Laboratory Tests 2 11/17/20 12:05: Bedside Glucose (Misc Panel) 213H 11/17/20 17:45: Bedside Glucose (Misc Panel) 230H 11/17/20 20:49: Bedside Glucose (Misc Panel) 187H 11/18/20 04:39: Immature Granulocyte % (Auto) 3.2H, Neutrophils (%) (Auto) 89.1H, Lymphocytes (%) (Auto) 4.2L, Monocytes (%) (Auto) 2.9, Eosinophils (%) (Auto) 0.1, Basophils (%) (Auto) 0.5, Neutrophils # (Auto) 14.1H, Lymphocytes # (Auto) 0.7L, Monocytes # (Auto) 0.5, Eosinophils # (Auto) 0.0, Basophils # (Auto) 0.1, Nucleated Red Blood Cells % (auto) 0.0 CBC/BMP Laboratory Tests 11/18/20 04:39 MATTHEW VARGAS MD Nov 18, 2020 07:40
[2020-11-18] MEDS: SERTRALINE HCL 25 MG TABLET PO SCH (20:33)
[2020-11-18] MEDS: **NOTE PATIENT COMMENT** MISC XX SCH (20:35)
[2020-11-18] MEDS: MUPIROCIN 2% OINT 22 GM TUBE TOP SCH (20:36)
[2020-11-18] MEDS: PERCOCET 5MG/325MG TAB PO PRN (20:40)
[2020-11-19] VITALS (9 sets, daily range): BP systolic 111–134; BP diastolic 60–75; O2SAT 90–96
[2020-11-19] MEDS: LEVALBUTEROL 1.25 MG/0.5 ML CONCENTRATE NEB NEB SCH ×2 (02:55→07:16)
[2020-11-19] MEDS: SODIUM CHLORIDE 0.9% INJ 10 ML SYR IV SCH ×2 (05:31→16:55)
[2020-11-19] MEDS: ALPRAZolam 0.25 MG TAB PO SCH ×4 (05:31→16:54)
[2020-11-19] MEDS: HumaLOG INSULIN (NovoLOG) PER UNIT SC SCH ×4 (07:30→21:00)
[2020-11-19] MEDS: LIDOCAINE 5% (LIDODERM) PATCH TD SCH (09:00)
[2020-11-19] MEDS: MOM 30ML SUSPENSION UDC PO SCH (09:00)
[2020-11-19] MEDS: ANALGESIC BALM CRM 3OZ TOP SCH ×2 (09:00→12:55)
[2020-11-19] MEDS: DOCUSATE SODIUM 100MG CAPSULE PO SCH ×2 (09:00→21:15)
[2020-11-19] MEDS: METOPROLOL TART 25 MG TABLET PO SCH ×2 (09:10→21:17)
[2020-11-19] MEDS: PANTOPRAZOLE 40MG TAB (PROTONIX) PO SCH ×2 (09:10→21:15)
[2020-11-19] MEDS: guaiFENesin ER 600 MG TAB PO SCH ×2 (09:10→21:16)
[2020-11-19] MEDS: BACTRIM 160MG/800MG DS TAB PO SCH (09:11)
[2020-11-19] MEDS: methylPREDNISolone 40MG 1ML VIAL IV SCH ×2 (09:11→21:15)
[2020-11-19] MEDS: LEVEMIR (INSULIN DETEMIR) 1 UNITS/0.01ML SC SCH ×2 (09:12→21:15)
[2020-11-19] MEDS: MUPIROCIN 2% OINT 22 GM TUBE TOP SCH ×2 (09:13→21:00)
--- NOTE | 2020-11-19 11:23 | IPNPDOC ---
Subjective Date Seen The patient was seen on 11/19/20. Subjective Chief Complaint/HPI No change in status. Remains on 35L / 100 % vapotherm. Will be working with PT. Objective Physical Examination General Exam: Positive: Alert, Cooperative, No Acute Distress Eye Exam: Negative: Sclera icteric ENT Exam: Positive: Atraumatic, Mucous membr. moist/pink, Pharynx Normal Neck Exam: Positive: Supple Chest Exam: Positive: Other (bilateral diffuse crackles fine, right diminished breath sounds at the base. ) Heart Exam: Positive: Rate Normal, Regular Rhythm, Normal S1, Normal S2; Negative: Murmurs, Rubs Abdomen Exam: Positive: Normal bowel sounds, Soft; Negative: Tenderness, Hepatospenomegaly Neuro Exam: Positive: Normal Speech Psych Exam: Positive: Memory Intact, Oriented x 3 Assessment /Plan Assessment Mrs. Jordan is a 50 year old female with PMH of morbid obesity s/p gastric sleeve surgery in 07/2019, a history of DM that had resolved post bariatric surgery and asthma, who presented to [facility] ED with right lower abdominal pain , nausea and vomiting and was admitted for strangulated lower abdominal incisional hernia with small bowel obstruction on 09/01/20 and then incidentally found to be COVID positive. 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 She did well initially then started decompensating from her COVID infection on 09/05/20 with increasing oxygen requirements. She developed ARDS with acute hypoxic respiratory failure and ultimately was intubated on 09/15/20. She was successfully extubated to BIPAP on 09/23/20. Hospital course was further complicated by development of right necrotizing pneumonia. 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 She remains persistently hypoxic at this time due to multiple issues : ILD - post COVID, right sided lung destruction from complicated necrotizing pneumonia. Persistent hypoxemic respiratory failure Initially due to 2/2 ARDS /2 COVID-19 and now post COVID interstitial lung disease, fibrosis, Right sided lung destruction from necrotizing pneumonia Pulmonary following intermittently. No Pulmonary embolism. Continue tapering of steroids about 5-10 mg / week. Persistent leucocytosis WBC is elevated . recent crp and procal has been negative , no new fever. Likely due to steroids, chronic sickness. however she is high risk of getting recurrent infections bacteria/fungal specially with cavity in her right lung. S/P Right sided necrotizing pneumonia complicated by right pneumothorax and bronchopleural fistula. Finished [address] chest from 11/15/20 reviewed. L lung infiltrates improved. R lung infiltrates unchanged, increased size of posteroinferior pleural air and fluid collection procal not elevated, Chest tube on 11/05/20 discontinued on 11/18/20 Right lung will always remain at risk for getting recurrent bacterial/ fungal infections due to cavity. s/p Acute COVID-19 Patient has completed treatment with tocilizumab, remdesivir, and decadron. COVID on 10/28/20 negative. DM2 in the setting of steroid use. Levemir and lispro Sinus Tachycardia improving Likely secondary to hypoxia. Echocardiogram has resulted without any significant findings. Her tachycardia is resolving. Her HR is currently 100-110 improved from 130 Continue Lopressor 50mg BID reduced cardizem to tid. Transient Atrial fibrillation resolved. JAQUELINE Not using CPAP will have to discuss with Dr Pena about when it can be resumed after iván bronchopleural fistula is resolved. Incarcerated right lower abdominal Incisional Hernia s/p surgical correction on 09/02/2020 healed Physical Deconditioning/Debility Patient has an extended hospital stay of over 1 month with critical illness. She is severely debilitated. She is working with physical therapy. 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 Constipation Bowel regimen ordered Asthma continue levoalbuterol, solumedrol. Anxiety better controlled now will reduce dose of xanax. continue atarax prn. GI prophylaxis Protonix DISPOSITION: Pending improvement in oxygen requirements. Continue to encourage use of CPAP. Provided letter for disability, endorsing need for oxygen therapy for the next year. Plan/VTE VTE Prophylaxis Ordered?: Yes VS, I&O, 24H, Fishbone Vital Signs/I&O Vital Signs Date Time Temp Pulse Resp B/P (MAP) Pulse Ox O2 Delivery O2 Flow Rate FiO2 11/19/20 08:00 35.0 90 11/19/20 05:30 93 134/75 11/19/20 05:29 97.9 20 94 HVNI-Vapotherm I&O- Last 24 Hours up to 6 AM 11/19/20 06:00 Intake Total 800 ml Output Total 800 ml Balance 0 ml Laboratory Data 24H LABS Laboratory Tests 2 11/18/20 16:09: Bedside Glucose (Misc Panel) 320H 11/18/20 20:29: Bedside Glucose (Misc Panel) 151H MATTHEW VARGAS MD Nov 19, 2020 11:23
[2020-11-19] MEDS: LEVALBUTEROL 1.25 MG/0.5 ML CONCENTRATE NEB INH SCH ×3 (12:00→20:36)
[2020-11-19] MEDS ORDERED: **NOTE PATIENT COMMENT** MISC XX PRN (16:00)
[2020-11-19] MEDS ORDERED: ANALGESIC BALM CRM 3OZ TOP PRN (16:00)
--- NOTE | 2020-11-19 16:02 | REP ---
INDICATION: pneumothx. COMPARISON: 11/18/2020. TECHNIQUE: Single portable AP view of the chest was performed. FINDINGS: There has been removal of the right chest tube. Loculated air is again seen inferiorly in the right hemithorax. There is no free pneumothorax identified. There is a right arm PICC line with the tip in the superior vena cava. The heart and mediastinum appear unchanged. Diffuse bilateral parenchymal opacities have not significantly changed, except for mild improvement inferiorly on the right. IMPRESSION: Removal of right chest tube. Mild improvement of right basilar parenchymal opacity. Otherwise no significant change compared to the prior study. <Electronically signed by Ruy Taylor > 11/19/20 [id number]
[2020-11-19] MEDS: PERCOCET 5MG/325MG TAB PO PRN (19:43)
[2020-11-19] MEDS: SERTRALINE HCL 25 MG TABLET PO SCH (21:16)
[2020-11-20] VITALS (22 sets, daily range): BP systolic 104–148; BP diastolic 57–92; O2SAT 82–97
[2020-11-20] MEDS: ALPRAZolam 0.25 MG TAB PO SCH ×4 (00:19→17:24)
[2020-11-20] MEDS: SODIUM CHLORIDE 0.9% INJ 10 ML SYR IV SCH ×2 (05:08→17:26)
[2020-11-20] MEDS: LEVALBUTEROL 1.25 MG/0.5 ML CONCENTRATE NEB INH SCH ×4 (07:31→20:28)
--- NOTE | 2020-11-20 08:45 | REP ---
INDICATION: s/p CT removal/Pneumothroax. COMPARISON: Yesterday TECHNIQUE: Portable FINDINGS: The technique utilized in obtaining the radiograph has magnified the cardiac silhouette and accentuated the interstitial markings. The cardiomediastinal silhouette lung nuñez are unchanged. The PICC line catheter is unchanged. The osseous structures are unchanged. IMPRESSION: No change in appearance of the chronic parenchymal opacities and other findings as described above. <Electronically signed by Devonte Aragon > 11/20/20 [id number]
[2020-11-20] MEDS: MOM 30ML SUSPENSION UDC PO SCH (09:00)
[2020-11-20] MEDS: DOCUSATE SODIUM 100MG CAPSULE PO SCH ×2 (09:00→20:59)
[2020-11-20] MEDS: HumaLOG INSULIN (NovoLOG) PER UNIT SC SCH ×4 (09:54→21:00)
[2020-11-20] MEDS: methylPREDNISolone 40MG 1ML VIAL IV SCH ×2 (09:55→21:01)
[2020-11-20] MEDS: LEVEMIR (INSULIN DETEMIR) 1 UNITS/0.01ML SC SCH ×2 (09:55→21:02)
[2020-11-20] MEDS: PANTOPRAZOLE 40MG TAB (PROTONIX) PO SCH ×2 (09:56→20:59)
[2020-11-20] MEDS: METOPROLOL TART 25 MG TABLET PO SCH ×2 (09:57→21:01)
[2020-11-20] MEDS: guaiFENesin ER 600 MG TAB PO SCH ×2 (09:57→20:59)
[2020-11-20] MEDS: BACTRIM 160MG/800MG DS TAB PO SCH (09:58)
[2020-11-20] MEDS: MUPIROCIN 2% OINT 22 GM TUBE TOP SCH ×2 (09:59→21:02)
[2020-11-20] MEDS: SODIUM CHLORIDE 0.9% INJ 10 ML SYR IV PRN (10:02)
--- NOTE | 2020-11-20 11:29 | IPNPDOC ---
Subjective Date Seen The patient was seen on 11/20/20. Subjective Chief Complaint/HPI Patient desaturated to 83% and became tachycardic to 130s while moving from bed to chair even with 40L , 100% vapotherm. No improvement in oxygen requirements. No other complaints. Objective Physical Examination General Exam: Positive: Alert, Cooperative, No Acute Distress Eye Exam: Positive: PERRLA; Negative: Sclera icteric ENT Exam: Positive: Atraumatic, Mucous membr. moist/pink, Pharynx Normal Neck Exam: Positive: Supple Chest Exam: Positive: Other (bilateral diffuse crackles fine, right diminished breath sounds at the base. ) Heart Exam: Positive: Rate Normal, Regular Rhythm, Normal S1, Normal S2; Negative: Murmurs, Rubs Abdomen Exam: Positive: Normal bowel sounds, Soft; Negative: Tenderness, Hepatospenomegaly Neuro Exam: Positive: Normal Speech Psych Exam: Positive: Memory Intact, Oriented x 3 Assessment /Plan Assessment Mrs. Jordan is a 50 year old female with PMH of morbid obesity s/p gastric sleeve surgery in 07/2019, a history of DM that had resolved post bariatric surgery and asthma, who presented to [facility] ED with right lower abdominal pain , nausea and vomiting and was admitted for strangulated lower abdominal incisional hernia with small bowel obstruction on 09/01/20 and then incidentally found to be COVID positive. 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 She did well initially then started decompensating from her COVID infection on 09/05/20 with increasing oxygen requirements. She developed ARDS with acute hypoxic respiratory failure and ultimately was intubated on 09/15/20. She was successfully extubated to BIPAP on 09/23/20. Hospital course was further complicated by development of right necrotizing pneumonia. 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 She remains persistently hypoxic at this time due to multiple issues : ILD - post COVID, right sided lung destruction from complicated necrotizing pneumonia. Persistent hypoxemic respiratory failure Initially due to 2/2 ARDS / COVID-19 and now post COVID interstitial lung disease, fibrosis, Right sided lung destruction from necrotizing pneumonia Pulmonary following intermittently. No Pulmonary embolism. Continue tapering of steroids about 5-10 mg / week. Persistent leucocytosis WBC is elevated . Recent crp and procal has been negative , no new fever. Likely due to steroids, chronic sickness however she is high risk of getting recurrent infections bacterial/fungal specially with cavity in her right lung. S/P Right sided necrotizing pneumonia complicated by right pneumothorax and bronchopleural fistula. Finished [address] cefep[address] chest from 11/15/20: L lung infiltrates improved. R lung infiltrates unchanged, increased size of posteroinferior pleural air and fluid collection Chest tube on 11/05/20 discontinued on 11/18/20 Right lung will always remain at risk for getting recurrent bacterial/ fungal infections due to cavity. s/p Acute COVID-19 Patient has completed treatment with tocilizumab, remdesivir, and decadron. COVID on 10/28/20 negative. DM2 in the setting of steroid use. Levemir and lispro Sinus Tachycardia will minimal exertion. Likely secondary to hypoxia, severe deconditioning. Echocardiogram has resulted without any significant findings. Continue Lopressor 50mg BID reduced cardizem to tid. Transient Atrial fibrillation resolved. JAQUELINE Not using CPAP Incarcerated right lower abdominal Incisional Hernia on admission s/p surgical correction on 09/02/2020 healed surgical incisions. Physical Deconditioning/Debility Patient has an extended hospital stay of over 1 month with critical illness. She is severely debilitated. She is working with physical therapy. She will need [facility] rehab pending clinical improvement. Constipation Bowel regimen in place Asthma continue levoalbuterol, solumedrol. steroid is being tapered. Anxiety better controlled now reduced dose of xanax from 0.5 to 0.25 qid continue atarax prn. GI prophylaxis Protonix DISPOSITION: Unclear at this time. still with very high oxygen requirement. Pending improvement in oxygen requirements. Provided letter for disability, endorsing need for oxygen therapy for the next year. Plan/VTE VTE Prophylaxis Ordered?: Yes VS, I&O, 24H, Fishbone Vital Signs/I&O Vital Signs Date Time Temp Pulse Resp B/P (MAP) Pulse Ox O2 Delivery O2 Flow Rate FiO2 11/20/20 09:57 128 136/72 11/20/20 08:00 96.8 21 90 HVNI-Vapotherm 35.0 90 I&O- Last 24 Hours up to 6 AM 11/20/20 06:00 Intake Total 1380 ml Output Total 100 ml Balance 1280 ml Laboratory Data 24H LABS Laboratory Tests 2 11/19/20 12:13: Bedside Glucose (Misc Panel) 162H MATTHEW VARGAS MD Nov 20, 2020 11:29
[2020-11-20] MEDS: PERCOCET 5MG/325MG TAB PO PRN ×2 (15:23→21:00)
[2020-11-20] MEDS: SERTRALINE HCL 25 MG TABLET PO SCH (20:59)
[2020-11-21] VITALS (18 sets, daily range): BP systolic 112–134; BP diastolic 56–71; O2SAT 89–98
[2020-11-21] MEDS: LEVALBUTEROL 1.25 MG/0.5 ML CONCENTRATE NEB NEB PRN (00:46)
[2020-11-21 02:21] LABS: ABG BASE EXCESS 4.2 (-2.0-2.0); ABG HCO3 28.6 MEQ/L (22.0-26.0); ABG O2 SATURATION 96.2 % (95.0-99.0); ABG PARTIAL PRESSURE CO2 42.2 mmHg (35.0-45.0); ABG PARTIAL PRESSURE O2 86.2 mmHg (75.0-100.0); ABG STANDARD HCO3 28.2 MEQ/L (22.0-26.0); ABG TOTAL CO2 29.9 MEQ/L (22.0-29.0); ABG pH (ARTERIAL) 7.449 UNITS (7.350-7.450)
[2020-11-21] MEDS: PERCOCET 5MG/325MG TAB PO PRN (04:20)
--- NOTE | 2020-11-21 04:27 | REPVR ---
PROCEDURE INFORMATION: Exam: XR Chest Exam date and time: 11/21/2020 2:04 AM Age: 50 years old Clinical indication: Other: Dyspnea TECHNIQUE: Imaging protocol: XR of the chest. Views: 1 view. COMPARISON: 1. AL PORTABLE CHEST X-RAY 11/20/2020 8:[address] Chest with contrast 11/15/2020 11:05:53 AM 3. CR PORTABLE CHEST X-RAY 11/18/2020 6:41:13 AM FINDINGS: Tubes, catheters and devices: There is again a PICC line catheter from the right upper extremity with the tip in the SVC. Lungs: Lung volumes are again reduced. There is again interstitial thickening and hazy opacity of the lungs, most prominent in the mid to upper lung zones. There is again relative hyperlucency in the lung bases, especially in the medial right lung base, unchanged from the prior exams. Pleural spaces: No significant pleural effusions. Lucency in the medial right lung base is again noted, and corresponds with the loculated hydropneumothorax seen on the prior CT scan. Heart/Mediastinum: The heart is normal in size. Bones/joints: There is fixation hardware in the cervical spine. Intraperitoneal space: Surgical sutures are seen in the left upper quadrant. IMPRESSION: No significant change in the appearance of the lungs. Electronically signed by: Ariana Ulloa On 11/21/2020 04:26:43 AM
[2020-11-21] MEDS: ALPRAZolam 0.25 MG TAB PO SCH ×4 (06:00→21:27)
[2020-11-21] MEDS: SODIUM CHLORIDE 0.9% INJ 10 ML SYR IV SCH ×2 (06:49→16:54)
[2020-11-21] MEDS: LEVALBUTEROL 1.25 MG/0.5 ML CONCENTRATE NEB INH SCH ×4 (07:13→20:15)
[2020-11-21 08:23] LABS: BASO # 0.1 10^3/uL (0.0-0.2); BASO % 0.5 % (0.0-1.0); EOS % 0.3 % (0.0-3.0); HEMATOCRIT 40.9 % (36.0-47.0); HEMOGLOBIN 13.1 g/dl (12.0-15.5); LYMPH # 1.2 10^3/uL (1.5-5.0); LYMPH % 8.3 % (24.0-44.0); MEAN CORPUSCULAR HEMOGLOBIN 31.6 pg (27.0-33.0); MEAN CORPUSCULAR VOLUME 98.8 fl (80.0-96.0); MONO # 0.8 10^3/uL (0.0-0.8); MONO % 5.5 % (2.0-8.0); NEUTROPHILS # 11.7 10^3/uL (1.5-8.5); PLATELET COUNT, AUTOMATED 288 10^3/uL (150-450); RED BLOOD COUNT 4.14 10^6/uL (4.00-5.40); WHITE BLOOD COUNT 14.2 10^3/uL (4.0-10.0)
[2020-11-21 08:54] LABS: BLOOD UREA NITROGEN 26 MG/DL (7-18); CALCIUM LEVEL 9.3 MG/DL (8.5-10.1); CARBON DIOXIDE LEVEL 34 MEQ/L (21-32); CHLORIDE LEVEL 100 MEQ/L (98-107); CREATININE FOR GFR 0.22 MG/DL (0.55-1.30); GLOMERULAR FILTRATION RATE > 60.0 (>51); GLUCOSE, FASTING 131 MG/DL (70-100); POTASSIUM SERUM 4.4 MEQ/L (3.5-5.1); SODIUM LEVEL 139 MEQ/L (136-145)
[2020-11-21] MEDS: methylPREDNISolone 40MG 1ML VIAL IV SCH ×2 (08:57→21:27)
[2020-11-21] MEDS: HumaLOG INSULIN (NovoLOG) PER UNIT SC SCH ×4 (08:58→21:00)
[2020-11-21] MEDS: LEVEMIR (INSULIN DETEMIR) 1 UNITS/0.01ML SC SCH ×2 (08:59→21:26)
[2020-11-21] MEDS: MOM 30ML SUSPENSION UDC PO SCH (09:00)
[2020-11-21] MEDS: MUPIROCIN 2% OINT 22 GM TUBE TOP SCH ×2 (09:00→21:30)
[2020-11-21] MEDS: DOCUSATE SODIUM 100MG CAPSULE PO SCH ×2 (09:00→21:00)
[2020-11-21] MEDS: BACTRIM 160MG/800MG DS TAB PO SCH (09:00)
[2020-11-21] MEDS: guaiFENesin ER 600 MG TAB PO SCH ×2 (09:00→21:28)
[2020-11-21] MEDS: PANTOPRAZOLE 40MG TAB (PROTONIX) PO SCH ×2 (09:00→21:27)
[2020-11-21] MEDS: METOPROLOL TART 25 MG TABLET PO SCH ×2 (09:00→21:28)
[2020-11-21] MEDS: SODIUM CHLORIDE 0.9% INJ 10 ML SYR IV PRN (09:06)
[2020-11-21] MEDS: ACETAMINOPHEN TAB 650MG DOSE (2X325MG) PO PRN (14:19)
[2020-11-21] MEDS: SERTRALINE HCL 25 MG TABLET PO SCH (21:28)
--- NOTE | 2020-11-21 22:53 | IPNPDOC ---
Subjective Date Seen The patient was seen on 11/21/20. Subjective Chief Complaint/HPI Continues to have episodes of severe SOB on minimal exertions. Remains of 40L / 100% Last evening and night was very somnolent and difficult to arouse and at 1 time pulse rate was down to 40s. so A cxr and abg was done with no new findings. somnolence probably related to medications. reduced xanax, stopped 2 tab percocet. also reduced diltiazem due to bradycardia during night. This am she is mostly sleeping but easily arousable. Tells me had a rough night so feels very tired. Objective Physical Examination General Exam: Positive: Alert, Cooperative, No Acute Distress Eye Exam: Positive: PERRLA; Negative: Sclera icteric ENT Exam: Positive: Atraumatic, Mucous membr. moist/pink, Pharynx Normal Neck Exam: Positive: Supple Chest Exam: Positive: Other (bilateral diffuse crackles fine, right diminished breath sounds at the base. ) Heart Exam: Positive: Rate Normal, Regular Rhythm, Normal S1, Normal S2; Negative: Murmurs, Rubs Abdomen Exam: Positive: Normal bowel sounds, Soft; Negative: Tenderness, Hepatospenomegaly Neuro Exam: Positive: Normal Speech Psych Exam: Positive: Memory Intact, Oriented x 3 Assessment /Plan Assessment Mrs. Jordan is a 50 year old female with PMH of morbid obesity s/p gastric sleeve surgery in 07/2019, a history of DM that had resolved post bariatric surgery and asthma, who presented to [facility] ED with right lower abdominal pain , nausea and vomiting and was admitted for strangulated lower abdominal incisional hernia with small bowel obstruction on 09/01/20 and then incidentally found to be COVID positive. 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 She did well initially then started decompensating from her COVID infection on 09/05/20 with increasing oxygen requirements. She developed ARDS with acute hypoxic respiratory failure and ultimately was intubated on 09/15/20. She was successfully extubated to BIPAP on 09/23/20. Hospital course was further complicated by development of right necrotizing pneumonia. 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 She remains persistently hypoxic at this time due to multiple issues : ILD - post COVID, right sided lung destruction from complicated necrotizing pneumonia. Persistent hypoxemic respiratory failure Initially due to 2/2 ARDS 2/2 COVID-19 and now post COVID interstitial lung disease, fibrosis, Right sided lung destruction from necrotizing pneumonia Pulmonary following intermittently. No Pulmonary embolism. Continue tapering of steroids about 5-10 mg / week. Persistent leucocytosis WBC is elevated . Recent crp and procal has been negative , no new fever. Likely due to steroids, chronic sickness however she is high risk of getting recurrent infections bacterial/fungal specially with cavity in her right lung. S/P Right sided necrotizing pneumonia complicated by right pneumothorax and bronchopleural fistula. Finished [address] cefep[address] Last CT chest from 11/15/20: L lung infiltrates improved. R lung infiltrates unchanged, increased size of posteroinferior pleural air and fluid collection Chest tube on 11/05/20 discontinued on 11/18/20 Right lung will always remain at risk for getting recurrent bacterial/ fungal infections due to cavity. s/p Acute COVID-19 Patient has completed treatment with tocilizumab, remdesivir, and decadron. COVID on 10/28/20 negative. DM2 in the setting of steroid use. Levemir and lispro Sinus Tachycardia will minimal exertion. Likely secondary to hypoxia, severe deconditioning. Echocardiogram has resulted without any significant findings. Continue Lopressor 50mg BID reduced cardizem to tid. Transient Atrial fibrillation resolved. JAQUELINE Not using CPAP Incarcerated right lower abdominal Incisional Hernia on admission s/p surgical correction on 09/02/2020 healed surgical incisions. Physical Deconditioning/Debility Patient has an extended hospital stay of over 1 month with critical illness. She is severely debilitated. She is working with physical therapy. She will need half-way rehab pending clinical improvement. Constipation Bowel regimen in place Asthma continue levoalbuterol, solumedrol. steroid is being tapered. Anxiety better controlled now reduced dose of xanax from 0.5 to 0.25 qid continue atarax prn. GI prophylaxis Protonix DISPOSITION: Unclear at this time. still with very high oxygen requirement. Pend ing improvement in oxygen requirements. Provided letter for disability, endorsing need for oxygen therapy for the next year. Plan/VTE VTE Prophylaxis Ordered?: Yes VS, I&O, 24H, Fishbone Vital Signs/I&O Vital Signs Date Time Temp Pulse Resp B/P (MAP) Pulse Ox O2 Delivery O2 Flow Rate FiO2 11/21/20 09:00 101 134/71 11/21/20 08:00 97.2 23 93 HVNI-Vapotherm 30.0 100 I&O- Last 24 Hours up to 6 AM 11/21/20 06:00 Intake Total 800 ml Output Total 650 ml Balance 150 ml Laboratory Data 24H LABS Laboratory Tests 2 11/20/20 11:37: Bedside Glucose (Misc Panel) 159H 11/20/20 16:26: Bedside Glucose (Misc Panel) 183H 11/20/20 20:58: Bedside Glucose (Misc Panel) 179H 11/21/20 02:05: Blood Gas Bicarbonate Standard 28.2H, Arterial Blood pH 7.449, Arterial Blood Partial Pressure CO2 42.2, Arterial Blood Partial Pressure O2 86.2, Arterial Blood Total CO2 29.9H, Arterial Blood HCO3 28.6H, Arterial Blood Base Excess 4.2H, Arterial Blood Oxygen Saturation 96.2 11/21/20 06:53: Bedside Glucose (Misc Panel) 179H 11/21/20 08:06: Immature Granulocyte % (Auto) 2.4, Neutrophils (%) (Auto) 83.0H, Lymphocytes (%) (Auto) 8.3L, Monocytes (%) (Auto) 5.5, Eosinophils (%) (Auto) 0.3, Basophils (%) (Auto) 0.5, Neutrophils # (Auto) 11.7H, Lymphocytes # (Auto) 1.2L, Monocytes # (Auto) 0.8, Eosinophils # (Auto) 0.0, Basophils # (Auto) 0.1, Nucleated Red Blood Cells % (auto) 0.2H, Anion Gap 5L, Glomerular Filtration Rate > 60.0, Calcium Level 9.3 CBC/BMP Laboratory Tests 11/21/20 08:06 MATTHEW VARGAS MD Nov 21, 2020 09:09
[2020-11-22] VITALS (7 sets, daily range): BP systolic 112–135; BP diastolic 61–80
[2020-11-22] MEDS: ALPRAZolam 0.25 MG TAB PO SCH ×3 (05:44→21:35)
[2020-11-22] MEDS: SODIUM CHLORIDE 0.9% INJ 10 ML SYR IV SCH ×2 (05:44→18:00)
--- NOTE | 2020-11-22 07:18 | IPN ---
PROGRESS NOTE DATE: 11/19/2020 SUBJECTIVE: Ms. Kumari is actually feeling a bit better today. Her full rate is being decreased as is her FIO2. She is breathing at her baseline. There has been no acute shortness of breath since the chest tube has been removed. OBJECTIVE: VITAL SIGNS: Her vital signs shows a T-max of 97.9 with a heart rate that ranges between 78 and 117, sinus rhythm, respiratory rate of 17 to 20 without the use of accessory muscles, she was 89 to 96% saturated on 35 liters of Vapotherm at 85% FIO2. Blood pressure ranges between 134/75 to 111/66. INTAKE AND OUTPUT: Her intake and output over the past 24 hours is recorded as 920 in and 900 out for a near equality. She weighs 102.5 kilos today compared to 104.6 kilos yesterday. LUNGS: She has equal breath sounds on either side with the high flow of Vapotherm being heard on both sides. There is no wheezing today. Percussion is full to the diaphragm. CARDIAC: Without murmurs, clicks, gallops or rubs. I cannot feel the PMI. S1 and S2 are normal. ABDOMEN: Soft, nontender. Bowel sounds are positive. There is no hepatosplenomegaly. No CVA tenderness. EXTREMITIES: No pretibial edema. No calf tenderness. No differential swelling of the upper extremities. SKIN: Warm, dry and perfused without cyanosis or mottling including that of nailbeds and knees. NECK: Supple. There is no jugular venous distention. No subcutaneous emphysema. Trachea is midline. HEENT: Mouth shows the mucous membranes to the pink and moist, lips and commissures without lesions or thrush. Eyes shows the pupils are equal and reactive. Extraocular muscles intact. Sclera nonicteric. NEUROLOGIC: Shows II through XII intact. Normal gross motor, gross sensation intact. Gait is not tested. PSYCHIATRIC: Shows her to be awake, alert, and oriented x3 with appropriate mood and affect and conversational. LABORATORY DATA: There are no new labs on her today. Her chest x-ray shows her lung fully expanded to the chest wall. The inferior bullae in the right lower hemithorax can clearly been seen. There is no pneumothorax and no pleural effusions. No subcutaneous emphysema. IMPRESSION: 1. Spontaneous pneumothorax on the right side. 2. Bronchopleural fistula, resolved. 3. Hypoxic respiratory failure. 4. Pneumonia. 5. Right lower lobe bullous disease. 6. COVID earlier this spring. 7. Post COVID fibrosis. PLAN AND DISCUSSION: I am pleased that her lung has remained applied to the chest wall and there is no pneumothorax. I do have a sinking feeling that it will recur because of her bullous disease. She is not on CPAP and perhaps that may obviate her recurring. I will therefore withdraw from the case to be consulted on an as needed basis. Certainly, should she become suddenly short of breath she should be immediately reevaluated particularly with a chest x-ray. We will remove the dressing from the chest tube wound site and leave it open to old-fashion air. KIMMY
[2020-11-22] MEDS: LEVALBUTEROL 1.25 MG/0.5 ML CONCENTRATE NEB INH SCH ×4 (07:21→20:10)
[2020-11-22] MEDS: HumaLOG INSULIN (NovoLOG) PER UNIT SC SCH ×4 (07:30→21:00)
[2020-11-22] MEDS: MOM 30ML SUSPENSION UDC PO SCH (09:00)
[2020-11-22] MEDS: DOCUSATE SODIUM 100MG CAPSULE PO SCH ×2 (09:00→21:00)
[2020-11-22] MEDS: BACTRIM 160MG/800MG DS TAB PO SCH (09:33)
[2020-11-22] MEDS: methylPREDNISolone 40MG 1ML VIAL IV SCH ×2 (09:33→21:34)
[2020-11-22] MEDS: hydrOXYzine 10 MG TAB PO PRN (09:33)
[2020-11-22] MEDS: METOPROLOL TART 25 MG TABLET PO SCH ×2 (09:36→21:36)
[2020-11-22] MEDS: guaiFENesin ER 600 MG TAB PO SCH ×2 (09:36→21:35)
[2020-11-22] MEDS: PANTOPRAZOLE 40MG TAB (PROTONIX) PO SCH ×2 (09:36→21:35)
[2020-11-22] MEDS: MUPIROCIN 2% OINT 22 GM TUBE TOP SCH ×2 (09:37→21:36)
[2020-11-22] MEDS: LEVEMIR (INSULIN DETEMIR) 1 UNITS/0.01ML SC SCH ×2 (09:37→21:34)
[2020-11-22] MEDS ORDERED: ALPRAZolam 0.25 MG TAB PO ONE (10:00)
--- NOTE | 2020-11-22 10:15 | IPNPDOC ---
Subjective Date Seen The patient was seen on 11/22/20. Subjective Chief Complaint/HPI Will try to reduce oxygen today as tolerated. CXR yesterday is OK. Objective Physical Examination General Exam: Positive: Alert, Cooperative, No Acute Distress Eye Exam: Positive: PERRLA; Negative: Sclera icteric ENT Exam: Positive: Atraumatic, Mucous membr. moist/pink, Pharynx Normal Neck Exam: Positive: Supple Chest Exam: Positive: Other (bilateral diffuse crackles fine, right diminished breath sounds at the base. ) Heart Exam: Positive: Rate Normal, Regular Rhythm, Normal S1, Normal S2; Negative: Murmurs, Rubs Abdomen Exam: Positive: Normal bowel sounds, Soft; Negative: Tenderness, Hepatospenomegaly Neuro Exam: Positive: Normal Speech Psych Exam: Positive: Memory Intact, Oriented x 3 Assessment /Plan Assessment Mrs. Jordan is a 50 year old female with PMH of morbid obesity s/p gastric sleeve surgery in 07/2019, a history of DM that had resolved post bariatric surgery and asthma, who presented to [facility] ED with right lower abdominal pain , nausea and vomiting and was admitted for strangulated lower abdominal incisional hernia with small bowel obstruction on 09/01/20 and then incidentally found to be COVID positive. 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 She did well initially then started decompensating from her COVID infection on 09/05/20 with increasing oxygen requirements. She developed ARDS with acute hypoxic respiratory failure and ultimately was intubated on 09/15/20. She was suc cessfully extubated to BIPAP on 09/23/20. Hospital course was further complicated by development of right necrotizing pneumonia. 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 She remains persistently hypoxic at this time due to multiple issues : ILD - post COVID, right sided lung destruction from complicated necrotizing pneumonia. Persistent hypoxemic respiratory failure Initially due to 2/2 ARDS /2 COVID-19 and now post COVID interstitial lung disease, fibrosis, Right sided lung destruction from necrotizing pneumonia Pulmonary following intermittently. No Pulmonary embolism. Continue tapering of steroids about 5-10 mg / week. If sudden SOB, then immediate CXR as her pneumothorax may recur. S/P Right sided necrotizing pneumonia complicated by right pneumothorax and bronchopleural fistula. Finished [address]fe[address] Last [address] chest from 11/15/20: L lung infiltrates improved. R lung infiltrates unchanged, increased size of posteroinferior pleural air and fluid collection Chest tube on 11/05/20 discontinued on 11/18/20 Right lung will always remain at risk for getting recurrent bacterial/ fungal infections due to cavity. She is also at risk for getting recurrent pneumothorax due to her bullous disease. Persistent leucocytosis WBC is elevated . Recent crp and procal has been negative , no new fever. Likely due to steroids, chronic sickness however she is high risk of getting recurrent infections bacterial/fungal spec ially with cavity in her right lung. s/p Acute COVID-19 Patient has completed treatment with tocilizumab, remdesivir, and decadron. COVID on 10/28/20 negative. DM2 in the setting of steroid use. Levemir and lispro Sinus Tachycardia will minimal exertion. Likely secondary to hypoxia, severe deconditioning. Echocardiogram has resulted without any significant findings. Continue Lopressor 50mg BID reduced cardizem to tid. Transient Atrial fibrillation resolved. JAQUELINE Not using CPAP Incarcerated right lower abdominal Incisional Hernia on admission s/p surgical correction on 09/02/2020 healed surgical incisions. Physical Deconditioning/Debility Patient has an extended hospital stay of over 1 month with critical illness. She is severely debilitated. She is working with physical therapy. She will need care home rehab pending clinical improvement. Constipation Bowel regimen in place Asthma continue levoalbuterol, solumedrol. steroid is being tapered. Anxiety better controlled now reduced dose of xanax from 0.5 to 0.25 qid continue atarax prn. GI prophylaxis Protonix DISPOSITION: Unclear at this time. still with very high oxygen requirement. Pending improvement in oxygen requirements. Provided letter for disability, endorsing need for oxygen therapy for the next year. Plan/VTE VTE Prophylaxis Ordered?: Yes VS, I&O, 24H, Fishbone Vital Signs/I&O Vital Signs Date Time Temp Pulse Resp B/P (MAP) Pulse Ox O2 Delivery O2 Flow Rate FiO2 11/22/20 09:36 129 130/71 11/22/20 08:00 97.2 23 93 HVNI-Vapotherm 40.0 100 I&O- Last 24 Hours up to 6 AM 6/21/21 06:00 Intake Total 780 ml Output Total 500 ml Balance 280 ml Laboratory Data 24H LABS Laboratory Tests 2 11/21/20 11:31: Bedside Glucose (Misc Panel) 160H 11/21/20 16:33: Bedside Glucose (Misc Panel) 228H 11/21/20 21:10: Bedside Glucose (Misc Panel) 155H 11/22/20 08:14: Bedside Glucose (Misc Panel) 114H MATTHEW VARGAS MD Nov 22, 2020 10:15
[2020-11-22] MEDS: ACETAMINOPHEN TAB 650MG DOSE (2X325MG) PO PRN (15:16)
[2020-11-22] MEDS: SODIUM CHLORIDE 0.9% INJ 10 ML SYR IV PRN (21:34)
[2020-11-22] MEDS: SERTRALINE HCL 25 MG TABLET PO SCH (21:35)
[2020-11-22] MEDS: PERCOCET 5MG/325MG TAB PO PRN (21:36)
[2020-11-22] MEDS: LIDOCAINE 5% (LIDODERM) PATCH TD PRN (21:41)
[2020-11-23 00:31] VITALS: BP 120/70
[2020-11-23 05:35] VITALS: BP 126/68
[2020-11-23] MEDS: SODIUM CHLORIDE 0.9% INJ 10 ML SYR IV SCH ×2 (05:37→17:14)
[2020-11-23] MEDS: LEVALBUTEROL 1.25 MG/0.5 ML CONCENTRATE NEB INH SCH ×4 (07:13→20:00)
[2020-11-23] MEDS: HumaLOG INSULIN (NovoLOG) PER UNIT SC SCH ×4 (07:30→21:00)
[2020-11-23 08:00] VITALS: BP 119/71
[2020-11-23] MEDS: SODIUM CHLORIDE NASAL 0.65% SPRAY BTL (OCEAN) PRN ×2 (08:15→23:13)
[2020-11-23] MEDS: SODIUM CHLORIDE 0.9% INJ 10 ML SYR IV PRN (08:16)
[2020-11-23] MEDS: LEVEMIR (INSULIN DETEMIR) 1 UNITS/0.01ML SC SCH ×2 (08:16→21:12)
[2020-11-23] MEDS: methylPREDNISolone 40MG 1ML VIAL IV SCH ×2 (08:16→21:07)
[2020-11-23] MEDS: guaiFENesin ER 600 MG TAB PO SCH ×2 (08:17→21:09)
[2020-11-23] MEDS: ALPRAZolam 0.25 MG TAB PO SCH ×3 (08:17→21:07)
[2020-11-23] MEDS: METOPROLOL TART 25 MG TABLET PO SCH ×2 (08:17→21:11)
[2020-11-23] MEDS: BACTRIM 160MG/800MG DS TAB PO SCH (08:17)
[2020-11-23] MEDS: PANTOPRAZOLE 40MG TAB (PROTONIX) PO SCH ×2 (08:17→21:07)
[2020-11-23] MEDS: MUPIROCIN 2% OINT 22 GM TUBE TOP SCH ×2 (08:18→21:00)
[2020-11-23] MEDS: DOCUSATE SODIUM 100MG CAPSULE PO SCH ×2 (09:00→21:00)
[2020-11-23] MEDS: MOM 30ML SUSPENSION UDC PO SCH (09:00)
[2020-11-23 12:00] VITALS: BP 124/67
[2020-11-23] MEDS: ACETAMINOPHEN TAB 650MG DOSE (2X325MG) PO PRN (12:10)
[2020-11-23] MEDS: hydrOXYzine 10 MG TAB PO PRN (14:28)
[2020-11-23 16:00] VITALS: BP 129/75
--- NOTE | 2020-11-23 18:00 | IPNPDOC ---
Subjective Date Seen The patient was seen on 11/23/20. Subjective Chief Complaint/HPI Patient not tolerating any reduction in Oxygen . Becomes very tachycardic and 120s and tachypneic to 40s. Went back up to 40L/100%. Spoke with significant other Vincent lois and patient regarding LTAC in [facility] or [place] area. They are OK with the plan. Will ask PFS to proceed with applications to LTAC. Objective Physical Examination General Exam: Positive: Alert, Cooperative, Mild Distress Eye Exam: Positive: PERRLA; Negative: Sclera icteric ENT Exam: Positive: Atraumatic, Mucous membr. moist/pink, Pharynx Normal Neck Exam: Positive: Supple Chest Exam: Positive: Other (bilateral diffuse crackles fine, right diminished breath sounds at the base. ) Heart Exam: Positive: Rate Normal, Regular Rhythm, Normal S1, Normal S2; Negative: Murmurs, Rubs Abdomen Exam: Positive: Normal bowel sounds, Soft; Negative: Tenderness, Hepatospenomegaly Neuro Exam: Positive: Normal Speech Psych Exam: Positive: Memory Intact, Oriented x 3 Assessment /Plan Assessment Mrs. Jordan is a 50 year old female with PMH of morbid obesity s/p gastric sleeve surgery in 07/2019, a history of DM that had resolved post bariatric surgery and asthma, who presented to [facility] ED with right lower abdominal pain , nausea and vomiting and was admitted for strangulated lower abdominal incisional hernia with small bowel obstruction on 09/01/20 and then incidentally found to be COVID positive. 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 She did well initially then started decompensating from her COVID infection on 09/05/20 with increasing oxygen requirements. She developed ARDS with acute hypoxic respiratory failure and ultimately was intubated on 09/15/20. She was successfully extubated to BIPAP on 09/23/20. Hospital course was further complicated by development of right necrotizing pneumonia. 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 She remains persistently hypoxic at this time due to multiple issues : ILD - post COVID, right sided lung destruction from complicated necrotizing pneumonia. Persistent hypoxemic respiratory failure Initially due to 2/2 ARDS 2/2 COVID-19 and now post COVID interstitial lung disease, fibrosis, Right sided lung destruction from necrotizing pneumonia Pulmonary following intermittently. No Pulmonary embolism. Continue tapering of steroids about 5-10 mg / week. If sudden SOB, then immediate CXR as her pneumothorax may recur. S/P Right sided necrotizing pneumonia complicated by right pneumothorax and bronchopleural fistula. Finished [address]fe[address] chest from 11/15/20: L lung infiltrates improved. R lung infiltrates unchanged, increased size of posteroinferior pleural air and fluid collection Chest tube on 11/05/20 discontinued on 11/18/20 Right lung will always remain at risk for getting recurrent bacterial/ fungal infections due to cavity. She is also at risk for getting recurrent pneumothorax due to her bullous disease. Persistent leucocytosis WBC is elevated . Recent crp and procal has been negative , no new fever. Likely due to steroids, chronic sickness however she is high risk of getting recurrent infections bacterial/fungal specially with cavity in her right lung. s/p Acute COVID-19 Patient has completed treatment with tocilizumab, remdesivir, and decadron. COVID on 10/28/20 negative. DM2 in the setting of steroid use. Levemir and lispro Sinus Tachycardia will minimal exertion. Likely secondary to hypoxia, severe deconditioning. Echocardiogram has resulted without any significant findings. Continue Lopressor 50mg BID reduced cardizem to tid. Transient Atrial fibrillation resolved. JAQUELINE Not using CPAP Incarcerated right lower abdominal Incisional Hernia on admission s/p surgical correction on 09/02/2020 healed surgical incisions. Physical Deconditioning/Debility Patient has an extended hospital stay of over 1 month with critical illness. She is severely debilitated. She is working with physical therapy. She will need terminal clerk rehab pending clinical improvement. Constipation Bowel regimen in place Asthma continue levoalbuterol, solumedrol. steroid is being tapered. Anxiety better controlled now reduced dose of xanax from 0.5 to 0.25 qid continue atarax prn. GI prophylaxis Protonix DISPOSITION: Unclear at this time. still with very high oxygen requirement. Pending improvement in oxygen requirements. Provided letter for disability, endorsing need for oxygen therapy for the next year. Plan/VTE VTE Prophylaxis Ordered?: Yes VS, I&O, 24H, Fishbone Vital Signs/I&O Vital Signs Date Time Temp Pulse Resp B/P (MAP) Pulse Ox O2 Delivery O2 Flow Rate FiO2 11/23/20 16:00 97.9 126 40 129/75 (93) 94 HVNI-Vapotherm 40.0 100 I&O- Last 24 Hours up to 6 AM 11/23/20 06:00 Intake Total 1260 ml Output Total 1450 ml Balance -190 ml Laboratory Data 24H LABS Laboratory Tests 2 11/22/20 18:29: Bedside Glucose (Misc Panel) 181H 11/22/20 21:26: Bedside Glucose (Misc Panel) 157H 11/23/20 08:02: Bedside Glucose (Misc Panel) 146H 11/23/20 12:08: Bedside Glucose (Misc Panel) 153H 11/23/20 16:49: Bedside Glucose (Misc Panel) 161H MATTHEW VARGAS MD Nov 23, 2020 18:00
[2020-11-23 20:00] VITALS: BP 127/67
[2020-11-23] MEDS: SERTRALINE HCL 25 MG TABLET PO SCH (21:07)
[2020-11-23] MEDS: PERCOCET 5MG/325MG TAB PO PRN (21:09)
[2020-11-24] VITALS (25 sets, daily range): BP systolic 117–145; BP diastolic 59–77; O2SAT 90–98
[2020-11-24] MEDS: SODIUM CHLORIDE 0.9% INJ 10 ML SYR IV SCH ×2 (06:29→17:45)
[2020-11-24] MEDS: LEVALBUTEROL 1.25 MG/0.5 ML CONCENTRATE NEB INH SCH ×4 (07:11→20:33)
[2020-11-24] MEDS: BACTRIM 160MG/800MG DS TAB PO SCH (08:54)
[2020-11-24] MEDS: guaiFENesin ER 600 MG TAB PO SCH ×2 (08:54→20:59)
[2020-11-24] MEDS: ALPRAZolam 0.25 MG TAB PO SCH ×3 (08:54→20:57)
[2020-11-24] MEDS: METOPROLOL TART 25 MG TABLET PO SCH (08:55)
[2020-11-24] MEDS: PANTOPRAZOLE 40MG TAB (PROTONIX) PO SCH ×2 (08:55→20:59)
[2020-11-24] MEDS: methylPREDNISolone 40MG 1ML VIAL IV SCH ×2 (08:55→20:57)
[2020-11-24] MEDS: LEVEMIR (INSULIN DETEMIR) 1 UNITS/0.01ML SC SCH ×2 (08:56→20:57)
[2020-11-24] MEDS: HumaLOG INSULIN (NovoLOG) PER UNIT SC SCH ×4 (08:57→20:57)
[2020-11-24] MEDS: SODIUM CHLORIDE 0.9% INJ 10 ML SYR IV PRN (08:57)
[2020-11-24] MEDS: MOM 30ML SUSPENSION UDC PO SCH (09:00)
[2020-11-24] MEDS: DOCUSATE SODIUM 100MG CAPSULE PO SCH ×2 (09:00→20:59)
[2020-11-24] MEDS: MUPIROCIN 2% OINT 22 GM TUBE TOP SCH ×2 (12:09→21:00)
--- NOTE | 2020-11-24 16:12 | IPNPDOC ---
Subjective Date Seen The patient was seen on 11/24/20. Subjective Chief Complaint/HPI Remains of 40% / 100%, remains persistently tachycardic. At this time we will start looking into LTAC hospitals as it seems like its going to take a long time for the lungs to recover for her to be weaned off these high levels of oxygen. Objective Physical Examination General Exam: Positive: Alert, Cooperative, Mild Distress Eye Exam: Positive: PERRLA; Negative: Sclera icteric ENT Exam: Positive: Atraumatic, Mucous membr. moist/pink, Pharynx Normal Neck Exam: Positive: Supple Chest Exam: Positive: Other (bilateral diffuse crackles fine, right diminished breath sounds at the base. ) Heart Exam: Positive: Rate Normal, Regular Rhythm, Normal S1, Normal S2; Negative: Murmurs, Rubs Abdomen Exam: Positive: Normal bowel sounds, Soft; Negative: Tenderness, Hepatospenomegaly Neuro Exam: Positive: Normal Speech Psych Exam: Positive: Memory Intact, Oriented x 3 Assessment /Plan Assessment Mrs. Jordan is a 50 year old female with PMH of morbid obesity s/p gastric sleeve surgery in 07/2019, a history of DM that had resolved post bariatric surgery and asthma, who presented to [facility] ED with right lower abdominal pain , nausea and vomiting and was admitted for strangulated lower abdominal incisional hernia with small bowel obstruction on 09/01/20 and then incidentally found to be COVID positive. 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 She did well initially then started decompensating from her COVID infection on 09/05/20 with increasing oxygen requirements. She developed ARDS with acute hypoxic respiratory failure and ultimately was intubated on 09/15/20. She was successfully extubated to BIPAP on 09/23/20. Hospital course was further complicated by development of right necrotizing pneumonia. 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 She remains persistently hypoxic at this time due to multiple issues : ILD - post COVID, right sided lung destruction from complicated necrotizing pneumonia. Persistent hypoxemic respiratory failure Initially due to 2/2 ARDS 2/2 COVID-19 and now post COVID interstitial lung disease, fibrosis, Right sided lung destruction from necrotizing pneumonia Pulmonary following intermittently. No Pulmonary embolism. Continue tapering of steroids about 5-10 mg / week. If sudden SOB, then immediate CXR as her pneumothorax may recur. S/P Right sided necrotizing pneumonia complicated by right pneumothorax and bronchopleural fistula. Finished [address] chest from 11/15/20: L lung infiltrates improved. R lung infiltrates unchanged, increased size of posteroinferior pleural air and fluid collection Chest tube on 11/05/20 discontinued on 11/18/20 Right lung will always remain at risk for getting recurrent bacterial/ fungal infections due to cavity. She is also at risk for getting recurrent pneumothorax due to her bullous disease. Persistent leucocytosis WBC is elevated . Recent crp and procal has been negative , no new fever. Likely due to steroids, chronic sickness however she is high risk of getting recurrent infections bacterial/fungal specially with cavity in her right lung. s/p Acute COVID-19 Patient has completed treatment with tocilizumab, remdesivir, and decadron. COVID on 10/28/20 negative. DM2 in the setting of steroid use. Levemir and lispro Persistent Sinus Tachycardia Likely secondary to hypoxia, severe deconditioning. Last Echocardiogram from october shows diastolic dys, moderate pulmonary hypertension, normal EF. Continue Lopressor 50mg BID reduced cardizem to 30 tid and BPs were low. Transient Atrial fibrillation with RVR in September 2020 resolved. JAQUELINE Not using CPAP as had pneumothorax Incarcerated right lower abdominal Incisional Hernia on admission s/p surgical correction on 09/02/2020 healed surgical incisions. Physical Deconditioning/Debility Patient has an extended hospital stay of over 1 month with critical illness. She is severely debilitated. She is working with physical therapy. She will need [facility] [employer] [facility] rehab pending clinical improvement. Constipation Bowel regimen in place Asthma continue levoalbuterol, solumedrol. steroid is being tapered. Anxiety better controlled now reduced dose of xanax from 0.5 to 0.25 tid continue atarax prn. GI prophylaxis Protonix DISPOSITION: Will need to go to LTAC facility. Plan/VTE VTE Prophylaxis Ordered?: Yes VS, I&O, 24H, Fishbone Vital Signs/I&O Vital Signs Date Time Temp Pulse Resp B/P (MAP) Pulse Ox O2 Delivery O2 Flow Rate FiO2 11/24/20 08:55 114 128/70 11/24/20 07:49 97.7 24 94 HVNI-Vapotherm 40.0 100 I&O- Last 24 Hours up to 6 AM 11/24/20 06:00 Intake Total 820 ml Output Total 325 ml Balance 495 ml Laboratory Data 24H LABS Laboratory Tests 2 11/23/20 12:08: Bedside Glucose (Misc Panel) 153H 11/23/20 16:49: Bedside Glucose (Misc Panel) 161H 11/23/20 21:10: Bedside Glucose (Misc Panel) 134H 11/24/20 07:55: Bedside Glucose (Misc Panel) 138H MATTHEW VARGAS MD Nov 24, 2020 10:32
[2020-11-24] MEDS: METOPROLOL TART 50 MG TAB PO SCH (20:58)
[2020-11-24] MEDS: PERCOCET 5MG/325MG TAB PO PRN (20:59)
[2020-11-24] MEDS: SERTRALINE HCL 25 MG TABLET PO SCH (20:59)
[2020-11-24] MEDS: LIDOCAINE 5% (LIDODERM) PATCH TD PRN (21:18)
[2020-11-25] VITALS (14 sets, daily range): BP systolic 119–140; BP diastolic 57–73; O2SAT 93–99
[2020-11-25] MEDS: PERCOCET 5MG/325MG TAB PO PRN ×2 (05:19→21:17)
[2020-11-25] MEDS: SODIUM CHLORIDE 0.9% INJ 10 ML SYR IV SCH ×2 (05:20→18:06)
[2020-11-25 05:42] LABS: MEAN CORPUSCULAR HEMOGLOBIN 31.2 pg (27.0-33.0); MEAN CORPUSCULAR VOLUME 100.7 fl (80.0-96.0); PLATELET COUNT, AUTOMATED 253 10^3/uL (150-450); RED BLOOD COUNT 4.17 10^6/uL (4.00-5.40); WHITE BLOOD COUNT 11.8 10^3/uL (4.0-10.0)
[2020-11-25 06:06] LABS: BLOOD UREA NITROGEN 21 MG/DL (7-18); CALCIUM LEVEL 8.9 MG/DL (8.5-10.1); CARBON DIOXIDE LEVEL 34 MEQ/L (21-32); CHLORIDE LEVEL 104 MEQ/L (98-107); CREATININE FOR GFR 0.28 MG/DL (0.55-1.30); GLOMERULAR FILTRATION RATE > 60.0 (>51); GLUCOSE, FASTING 139 MG/DL (70-100); POTASSIUM SERUM 4.1 MEQ/L (3.5-5.1); SODIUM LEVEL 139 MEQ/L (136-145)
[2020-11-25] MEDS: HumaLOG INSULIN (NovoLOG) PER UNIT SC SCH ×4 (07:30→21:00)
[2020-11-25] MEDS: LEVALBUTEROL 1.25 MG/0.5 ML CONCENTRATE NEB INH SCH ×4 (07:40→19:33)
[2020-11-25] MEDS: ALPRAZolam 0.25 MG TAB PO SCH ×3 (08:40→21:16)
[2020-11-25] MEDS: methylPREDNISolone 40MG 1ML VIAL IV SCH ×2 (08:40→21:18)
[2020-11-25] MEDS: BACTRIM 160MG/800MG DS TAB PO SCH (08:41)
[2020-11-25] MEDS: guaiFENesin ER 600 MG TAB PO SCH ×2 (08:41→21:16)
[2020-11-25] MEDS: PANTOPRAZOLE 40MG TAB (PROTONIX) PO SCH ×2 (08:41→21:15)
[2020-11-25] MEDS: LEVEMIR (INSULIN DETEMIR) 1 UNITS/0.01ML SC SCH ×2 (08:41→21:18)
[2020-11-25] MEDS: DOCUSATE SODIUM 100MG CAPSULE PO SCH ×2 (08:41→21:00)
[2020-11-25] MEDS: METOPROLOL TART 50 MG TAB PO SCH ×2 (08:41→21:17)
[2020-11-25] MEDS: MUPIROCIN 2% OINT 22 GM TUBE TOP SCH ×2 (08:42→21:18)
[2020-11-25] MEDS: MOM 30ML SUSPENSION UDC PO SCH (08:42)
--- NOTE | 2020-11-25 10:26 | IPNPDOC ---
Subjective Date Seen The patient was seen on 11/25/20. Subjective Chief Complaint/HPI Pulse rate better controlled this morning. Sitting up by the side of the bed working with PT. Oxygen saturation does go down to 83% when mobilizing then comes back up to 90% on rest. remains of 40 L / 100% vapotherm. Complains of right knee pain. Objective Physical Examination General Exam: Positive: Alert, Cooperative, No Acute Distress Eye Exam: Positive: PERRLA; Negative: Sclera icteric ENT Exam: Positive: Atraumatic, Mucous membr. moist/pink, Pharynx Normal Neck Exam: Positive: Supple Chest Exam: Positive: Diminished, Other (left crackles diffuse, right diminished breath sounds) Heart Exam: Positive: Rate Normal, Regular Rhythm, Normal S1, Normal S2; Negative: Murmurs, Rubs Abdomen Exam: Positive: Normal bowel sounds, Soft; Negative: Tenderness, Hepatospenomegaly Extremity Exam: Negative: Clubbing, Cyanosis, Edema Neuro Exam: Positive: Normal Speech Psych Exam: Positive: Memory Intact, Oriented x 3 Assessment /Plan Assessment Mrs. Jordan is a 50 year old female with PMH of morbid obesity s/p gastric sleeve surgery in 07/2019, a history of DM that had resolved post bariatric surgery and asthma, who presented to [facility] ED with right lower abdominal pain , nausea and vomiting and was admitted for strangulated lower abdominal incisional hernia with small bowel obstruction on 09/01/20 and then incidentally found to be COVID positive. 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 She did well initially then started decompensating from her COVID infection on 09/05/20 with increasing oxygen requirements. She developed ARDS with acute hypoxic respiratory failure and ultimately was intubated on 09/15/20. She was successfully extubated to BIPAP on 09/23/20. Hospital course was further complicated by development of right necrotizing pneumonia. 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 She remains persistently hypoxic at this time due to multiple issues : ILD - post COVID, right sided lung destruction from complicated necrotizing pneumonia. Persistent hypoxemic respiratory failure Initially due to 2/2 ARDS 2/2 COVID-19 and now post COVID interstitial lung disease, fibrosis, Right sided lung destruction from necrotizing pneumonia Pulmonary following intermittently. No Pulmonary embolism. Continue tapering of steroids about 5-10 mg / week. If sudden SOB, then immediate CXR as her pneumothorax may recur. S/P Right sided necrotizing pneumonia complicated by right pneumothorax and bronchopleural fistula. Finished [address] chest from 11/15/20: L lung infiltrates improved. R lung infiltrates unchanged, increased size of posteroinferior pleural air and fluid collection Chest tube on 11/05/20 discontinued on 11/18/20 Right lung will always remain at risk for getting recurrent bacterial/ fungal infections due to cavity. She is also at risk for getting recurrent pneumothorax due to her bullous disease. Persistent leucocytosis WBC is elevated . Recent crp and procal has been negative , no new fever. Likely due to steroids, chronic sickness however she is high risk of getting recurrent infections bacterial/fungal speci ally with cavity in her right lung. s/p Acute COVID-19 Patient has completed treatment with tocilizumab, remdesivir, and decadron. COVID on 10/28/20 negative. DM2 in the setting of steroid use. Levemir and lispro Persistent Sinus Tachycardia Likely secondary to hypoxia, severe deconditioning. Last Echocardiogram from october shows diastolic dys, moderate pulmonary hypertension, normal EF. Continue Lopressor 50mg BID reduced cardizem to 30 tid as BPs were low. Transient Atrial fibrillation with RVR in September 2020 resolved. JAQUELINE Not using CPAP as had pneumothorax Incarcerated right lower abdominal Incisional Hernia on admission s/p surgical correction on 09/02/2020 healed surgical incisions. Physical Deconditioning/Debility Patient has an extended hospital stay of over 1 month with critical illness. She is severely debilitated. She is working with physical therapy. She will need [facility] [employer] [facility] rehab pending clinical improvement. Constipation Bowel regimen in place Asthma continue levoalbuterol, solumedrol. steroid is being tapered. Anxiety better controlled now reduced dose of xanax from 0.5 to 0.25 tid continue atarax prn. GI prophylaxis Protonix DISPOSITION: Will need to go to LTAC facility. Plan/VTE VTE Prophylaxis Ordered?: Yes VS, I&O, 24H, Fishbone Vital Signs/I&O Vital Signs Date Time Temp Pulse Resp B/P (MAP) Pulse Ox O2 Delivery O2 Flow Rate FiO2 11/25/20 08:41 92 121/79 11/25/20 08:00 98.4 22 97 HVNI-Vapotherm 40.0 11/25/20 07:40 100 I&O- Last 24 Hours up to 6 AM 11/25/20 05:59 Intake Total 1622 ml Output Total 450 ml Balance 1172 ml Laboratory Data 24H LABS Laboratory Tests 2 11/24/20 11:58: Bedside Glucose (Misc Panel) 160H 11/24/20 16:43: Bedside Glucose (Misc Panel) 144H 11/24/20 20:04: Bedside Glucose (Misc Panel) 150H 11/25/20 05:30: Nucleated Red Blood Cells % (auto) 0.0, Anion Gap 1L, Glomerular Filtration Rate > 60.0, Calcium Level 8.9 CBC/BMP Laboratory Tests 11/25/20 05:30 MATTHEW VARGAS MD Nov 25, 2020 10:26
[2020-11-25] MEDS: SERTRALINE HCL 25 MG TABLET PO SCH (21:16)
[2020-11-26] VITALS (8 sets, daily range): BP systolic 105–123; BP diastolic 55–71; O2SAT 94
[2020-11-26] MEDS: SODIUM CHLORIDE 0.9% INJ 10 ML SYR IV SCH ×2 (05:59→18:02)
[2020-11-26] MEDS: HumaLOG INSULIN (NovoLOG) PER UNIT SC SCH ×4 (07:30→20:37)
[2020-11-26] MEDS: LEVALBUTEROL 1.25 MG/0.5 ML CONCENTRATE NEB INH SCH ×4 (08:56→19:43)
[2020-11-26] MEDS: DOCUSATE SODIUM 100MG CAPSULE PO SCH ×2 (08:59→20:51)
[2020-11-26] MEDS: MOM 30ML SUSPENSION UDC PO SCH (09:00)
[2020-11-26] MEDS: guaiFENesin ER 600 MG TAB PO SCH ×2 (09:02→20:34)
[2020-11-26] MEDS: methylPREDNISolone 40MG 1ML VIAL IV SCH ×2 (09:02→20:35)
[2020-11-26] MEDS: BACTRIM 160MG/800MG DS TAB PO SCH (09:03)
[2020-11-26] MEDS: ALPRAZolam 0.25 MG TAB PO SCH ×3 (09:03→20:35)
[2020-11-26] MEDS: PANTOPRAZOLE 40MG TAB (PROTONIX) PO SCH ×2 (09:04→20:35)
[2020-11-26] MEDS: MUPIROCIN 2% OINT 22 GM TUBE TOP SCH ×2 (09:04→20:45)
[2020-11-26] MEDS: LEVEMIR (INSULIN DETEMIR) 1 UNITS/0.01ML SC SCH ×2 (09:04→20:36)
[2020-11-26] MEDS: METOPROLOL TART 50 MG TAB PO SCH ×2 (09:12→20:34)
[2020-11-26] MEDS: LIDOCAINE 5% (LIDODERM) PATCH TD PRN (09:14)
--- NOTE | 2020-11-26 09:57 | IPNPDOC ---
Subjective Date Seen The patient was seen on 11/26/20. Subjective Chief Complaint/HPI No issues overnight. Pulse was well controlled at night however again tachycardic in the morning at 120s. Patient is dropping weight. She has dropped more than 20 kgs since admission. Objective Physical Examination General Exam: Positive: Alert, Cooperative, No Acute Distress Eye Exam: Positive: PERRLA; Negative: Sclera icteric ENT Exam: Positive: Atraumatic, Mucous membr. moist/pink, Pharynx Normal Neck Exam: Positive: Supple Chest Exam: Positive: Diminished, Other (left crackles diffuse, right diminished breath sounds) Heart Exam: Positive: Rate Normal, Regular Rhythm, Normal S1, Normal S2; Negative: Murmurs, Rubs Abdomen Exam: Positive: Normal bowel sounds, Soft; Negative: Tenderness, Hepatospenomegaly Extremity Exam: Negative: Clubbing, Cyanosis, Edema Neuro Exam: Positive: Normal Speech Psych Exam: Positive: Memory Intact, Oriented x 3 Assessment /Plan Assessment Mrs. Jordan is a 50 year old female with PMH of morbid obesity s/p gastric sleeve surgery in 07/2019, a history of DM that had resolved post bariatric surgery and asthma, who presented to [facility] ED with right lower abdominal pain , nausea and vomiting and was admitted for strangulated lower abdominal incisional hernia with small bowel obstruction on 09/01/20 and then incidentally found to be COVID positive. Underwent laparoscopic resection of infarcted portion of dis senait ileum with anastomosis and repair of the incisional hernia with mesh. She did well initially then started decompensating from her COVID infection on 09/05/20 with increasing oxygen requirements. She developed ARDS with acute hypoxic respiratory failure and ultimately was intubated on 09/15/20. She was successfully extubated to BIPAP on 09/23/20. Hospital course was further complica gilberto by development of right necrotizing pneumonia. 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 She remains persistently hypoxic at this time due to multiple issues : ILD - post COVID, right sided lung destruction from complicated necrotizing pneumonia. Persistent hypoxemic respiratory failure Initially due to 2/2 ARDS 2/2 COVID-19 and now post COVID interstitial lung disease, fibrosis, Right sided lung destruction from necrotizing pneumonia Pulmonary following intermittently. No Pulmonary embolism. Continue tapering of steroids about 5-10 mg / week. If sudden SOB, then immediate CXR as her pneumothorax may recur. S/P Right sided necrotizing pneumonia complicated by right pneumothorax and bronchopleural fistula. Finished [address] chest from 11/15/20: L lung infiltrates improved. R lung infiltrates unchanged, increased size of posteroinferior pleural air and fluid collection Chest tube on 11/05/20 discontinued on 11/18/20 Right lung will always remain at risk for getting recurrent bacterial/ fungal infections due to cavity. She is also at risk for getting recurrent pneumothorax due to her bullous disease. Persistent leucocytosis WBC is elevated . Recent crp and procal has been negative , no new fever. Likely due to steroids, chronic sickness however she is high risk of getting recurrent infections bacterial/fungal specially with cavity in her right lung. s/p Acute COVID-19 Patient has completed treatment with tocilizumab, Remdesivir, and decadron. COVID on 10/28/20 negative. DM2 in the setting of steroid use. Levemir and lispro Persistent Sinus Tachycardia Likely secondary to hypoxia, severe deconditioning. Last Echocardiogram from october shows diastolic dys, moderate pulmonary hypertension, normal EF. Continue Lopressor 50mg BID reduced cardizem to 30 tid as BPs were low. Transient Atrial fibrillation with RVR in September 2020 resolved. JAQUELINE Not using CPAP as had pneumothorax Incarcerated right lower abdominal Incisional Hernia on admission s/p surgical correction on 09/02/2020 healed surgical incisions. Physical Deconditioning/Debility Patient has an extended hospital stay of over 1 month with critical illness. She is severely debilitated. She is working with physical therapy. She will need [facility] [employer] [facility] rehab pending clinical improvement. Constipation Bowel regimen in place Asthma continue levoalbuterol, solumedrol. steroid is being tapered. Anxiety better controlled now reduced dose of xanax from 0.5 to 0.25 tid continue atarax prn. GI prophylaxis Protonix DISPOSITION: Will need to go to LTAC facility. Plan/VTE VTE Prophylaxis Ordered?: Yes VS, I&O, 24H, Fishbone Vital Signs/I&O Vital Signs Date Time Temp Pulse Resp B/P (MAP) Pulse Ox O2 Delivery O2 Flow Rate FiO2 11/26/20 09:12 120 123/71 11/26/20 08:50 96 HVNI-Vapotherm 40.0 90 11/26/20 08:00 97.9 21 I&O- Last 24 Hours up to 6 AM 11/26/20 06:00 Intake Total 0 ml Output Total 550 ml Balance -550 ml Laboratory Data 24H LABS Laboratory Tests 2 11/25/20 17:58: Bedside Glucose (Misc Panel) 131H 11/25/20 21:19: Bedside Glucose (Misc Panel) 139H 11/26/20 06:47: Bedside Glucose (Misc Panel) 130H MATTHEW VARGAS MD Nov 26, 2020 09:57
[2020-11-26] MEDS: PERCOCET 5MG/325MG TAB PO PRN (20:29)
[2020-11-26] MEDS: SERTRALINE HCL 25 MG TABLET PO SCH (20:29)
[2020-11-27] VITALS: BP 104/55
[2020-11-27] MEDS: PERCOCET 5MG/325MG TAB PO PRN ×2 (03:49→21:27)
[2020-11-27 04:00] VITALS: BP 99/64
[2020-11-27] MEDS: SODIUM CHLORIDE 0.9% INJ 10 ML SYR IV SCH ×2 (06:50→18:57)
[2020-11-27] MEDS: LEVALBUTEROL 1.25 MG/0.5 ML CONCENTRATE NEB INH SCH ×4 (07:05→19:26)
[2020-11-27] MEDS: HumaLOG INSULIN (NovoLOG) PER UNIT SC SCH ×4 (07:30→21:00)
[2020-11-27 08:00] VITALS: BP 138/64
[2020-11-27] MEDS: DOCUSATE SODIUM 100MG CAPSULE PO SCH ×3 (09:00→21:00)
[2020-11-27] MEDS: MOM 30ML SUSPENSION UDC PO SCH ×2 (09:00→09:28)
[2020-11-27] MEDS: PANTOPRAZOLE 40MG TAB (PROTONIX) PO SCH ×2 (09:28→21:20)
[2020-11-27] MEDS: LEVEMIR (INSULIN DETEMIR) 1 UNITS/0.01ML SC SCH ×2 (09:28→21:24)
[2020-11-27] MEDS: ALPRAZolam 0.25 MG TAB PO SCH ×3 (09:28→21:23)
[2020-11-27] MEDS: BACTRIM 160MG/800MG DS TAB PO SCH (09:29)
[2020-11-27] MEDS: guaiFENesin ER 600 MG TAB PO SCH ×2 (09:29→21:22)
[2020-11-27] MEDS: methylPREDNISolone 40MG 1ML VIAL IV SCH ×2 (09:29→21:20)
[2020-11-27] MEDS: METOPROLOL TART 50 MG TAB PO SCH ×2 (09:30→21:00)
[2020-11-27] MEDS: MUPIROCIN 2% OINT 22 GM TUBE TOP SCH ×2 (09:30→21:43)
[2020-11-27] MEDS: ONDANSETRON 4MG/2ML VIAL IV PRN (09:35)
--- NOTE | 2020-11-27 10:18 | IPNPDOC ---
Subjective Date Seen The patient was seen on 11/27/20. Subjective Chief Complaint/HPI complaining of nausea this morning with some lower abdominal discomfort. Also complains of tingling of both the legs Objective Physical Examination General Exam: Positive: Alert, Cooperative, No Acute Distress Eye Exam: Positive: PERRLA; Negative: Sclera icteric ENT Exam: Positive: Atraumatic, Mucous membr. moist/pink, Pharynx Normal Neck Exam: Positive: Supple Chest Exam: Positive: Diminished, Other (left crackles diffuse, right diminished breath sounds) Heart Exam: Positive: Rate Normal, Regular Rhythm, Normal S1, Normal S2; Negative: Murmurs, Rubs Abdomen Exam: Positive: Normal bowel sounds, Soft; Negative: Tenderness, Hepatospenomegaly Extremity Exam: Negative: Clubbing, Cyanosis, Edema Neuro Exam: Positive: Normal Speech Psych Exam: Positive: Memory Intact, Oriented x 3 Assessment /Plan Assessment Mrs. Jordan is a 50 year old female with PMH of morbid obesity s/p gastric sleeve surgery in 07/2019, a history of DM that had resolved post bariatric s urgery and asthma, who presented to [facility] ED with right lower abdominal pain , nausea and vomiting and was admitted for strangulated lower abdominal incisional hernia with small bowel obstruction on 09/01/20 and then incidentally found to be COVID positive. 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 She did well initially then started decompensating from her COVID infection on 09/05/20 with increasing oxygen requirements. She developed ARDS with acute hypoxic respiratory failure and ultimately was intubated on 09/15/20. She was successfully extubated to BIPAP on 09/23/20. Hospital course was further complicated by development of right necrotizing pneumonia. 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 She remains persistently hypoxic at this time due to multiple issues : ILD - post COVID, right sided lung destruction from complicated necrotizing pneumonia. Persistent hypoxemic respiratory failure Initially due to 2/2 ARDS / COVID-19 and now post COVID interstitial lung disease, fibrosis, Right sided lung destruction from necrotizing pneumonia Pulmonary following intermittently. No Pulmonary embolism. Continue tapering of steroids about 5-10 mg / week. If sudden SOB, then immediate CXR as her pneumothorax may recur. S/P Right sided necrotizing pneumonia complicated by right pneumothorax and bronchopleural fistula. Finished [address]fe[address] chest from 11/15/20: L lung infiltrates improved. R lung infiltrates unchanged, increased size of posteroinferior pleural air and fluid collection Chest tube on 11/05/20 discontinued on 11/18/20 Right lung will always remain at risk for getting recurrent bacterial/ fungal infections due to cavity. She is also at risk for getting recurrent pneumothorax due to her bullous disease. Persistent leucocytosis WBC is elevated . Recent crp and procal has been negative , no new fever. Likely due to steroids, chronic sickness however she is high risk of getting recurrent infections bacterial/fungal specially with cavity in her right lung. s/p Acute COVID-19 Patient has completed treatment with tocilizumab, Remdesivir, and decadron. COVID on 10/28/20 negative. DM2 in the setting of steroid use. Levemir and lispro Persistent Sinus Tachycardia Likely secondary to hypoxia, severe deconditioning. Last Echocardiogram from october shows diastolic dys, moderate pulmonary hypertension, normal EF. Continue Lopressor 50mg BID reduced cardizem to 30 tid as BPs were low. Transient Atrial fibrillation with RVR in September 2020 resolved. JAQUELINE Not using CPAP as had pneumothorax Incarcerated right lower abdominal Incisional Hernia on admission s/p surgical correction on 09/02/2020 healed surgical incisions. Physical Deconditioning/Debility Patient has an extended hospital stay of over 1 month with critical illness. She is severely debilitated. She is working with physical therapy. She will need [facility] rehab pending clinical improvement. Constipation Bowel regimen in place Asthma continue levoalbuterol, solumedrol. steroid is being tapered. Anxiety better controlled now reduced dose of xanax from 0.5 to 0.25 tid continue atarax prn. Both leg pains and tingling. right leg cooler than the left. right dorsalis pedis is only dopplerable will check Vit b12, folate levels and start on nephrovite. H/o Morbid obesity s/p gastric sleeve surgery in 07/2019 Now has lost 20 kgs in hospital weight down form 122 kgs to 102 kgs. restart nephrovite. GI prophylaxis Protonix DISPOSITION: Will need to go to LTAC facility. Plan/VTE VTE Prophylaxis Ordered?: Yes VS, I&O, 24H, Fishbone Vital Signs/I&O Vital Signs Date Time Temp Pulse Resp B/P (MAP) Pulse Ox O2 Delivery O2 Flow Rate FiO2 11/27/20 08:00 96.5 106 24 138/64 (88) 94 HVNI-Vapotherm 30.0 80 I&O- Last 24 Hours up to 6 AM 11/27/20 06:00 Intake Total 450 ml Output Total 900 ml Balance -450 ml Laboratory Data 24H LABS Laboratory Tests 2 11/26/20 11:55: Bedside Glucose (Misc Panel) 107H 11/26/20 18:12: Bedside Glucose (Misc Panel) 147H 11/26/20 20:19: Bedside Glucose (Misc Panel) 152H 11/27/20 06:54: Bedside Glucose (Misc Panel) 134H MATTHEW VARGAS MD Nov 27, 2020 10:18
[2020-11-27] MEDS: ACETAMINOPHEN TAB 650MG DOSE (2X325MG) PO PRN (11:48)
[2020-11-27] MEDS: NEPHRO-VIT TAB (NEPHROCAPS) PO SCH ×2 (11:48→21:20)
[2020-11-27 12:18] VITALS: BP 112/59
[2020-11-27 15:16] VITALS: BP 105/66
[2020-11-27 20:00] VITALS: BP 107/60; O2SAT 93
[2020-11-27] MEDS: SERTRALINE HCL 25 MG TABLET PO SCH (21:23)
[2020-11-28] VITALS (10 sets, daily range): BP systolic 101–126; BP diastolic 53–72; O2SAT 90–96
[2020-11-28] MEDS: SODIUM CHLORIDE 0.9% INJ 10 ML SYR IV SCH ×2 (05:41→18:42)
[2020-11-28] MEDS: LEVALBUTEROL 1.25 MG/0.5 ML CONCENTRATE NEB INH SCH ×4 (07:11→19:49)
[2020-11-28] MEDS: HumaLOG INSULIN (NovoLOG) PER UNIT SC SCH ×4 (07:30→21:00)
[2020-11-28] MEDS: MOM 30ML SUSPENSION UDC PO SCH (09:00)
[2020-11-28] MEDS: PANTOPRAZOLE 40MG TAB (PROTONIX) PO SCH ×2 (09:07→21:00)
[2020-11-28] MEDS: BACTRIM 160MG/800MG DS TAB PO SCH (09:07)
[2020-11-28] MEDS: methylPREDNISolone 40MG 1ML VIAL IV SCH ×2 (09:07→21:01)
[2020-11-28] MEDS: NEPHRO-VIT TAB (NEPHROCAPS) PO SCH ×2 (09:07→21:00)
[2020-11-28] MEDS: ALPRAZolam 0.25 MG TAB PO SCH ×3 (09:07→21:00)
[2020-11-28] MEDS: METOPROLOL TART 50 MG TAB PO SCH ×2 (09:07→21:00)
[2020-11-28] MEDS: DOCUSATE SODIUM 100MG CAPSULE PO SCH ×2 (09:07→21:00)
[2020-11-28] MEDS: guaiFENesin ER 600 MG TAB PO SCH ×2 (09:08→21:00)
[2020-11-28] MEDS: LEVEMIR (INSULIN DETEMIR) 1 UNITS/0.01ML SC SCH ×2 (09:08→21:06)
[2020-11-28] MEDS: MUPIROCIN 2% OINT 22 GM TUBE TOP SCH ×2 (09:09→21:10)
[2020-11-28] MEDS: ACETAMINOPHEN TAB 650MG DOSE (2X325MG) PO PRN (11:52)
--- NOTE | 2020-11-28 11:54 | IPNPDOC ---
Subjective Date Seen The patient was seen on 11/28/20. Subjective Chief Complaint/HPI Patient is sitting in stretcher chair. She complains of pain in her tail bone and feels her legs are numb and tingly. Her right leg is warm today while her left leg is cool. Both dosalis pedis pulses are palpable. She remains on 30L / 80% in vapotherm. Objective Physical Examination General Exam: Positive: Alert, Cooperative, No Acute Distress Eye Exam: Positive: PERRLA; Negative: Sclera icteric ENT Exam: Positive: Atraumatic, Mucous membr. moist/pink, Pharynx Normal Neck Exam: Positive: Supple Chest Exam: Positive: Diminished, Other (left crackles diffuse, right diminished breath sounds) Heart Exam: Positive: Rate Normal, Regular Rhythm, Normal S1, Normal S2; Negative: Murmurs, Rubs Abdomen Exam: Positive: Normal bowel sounds, Soft; Negative: Tenderness, Hepatospenomegaly Extremity Exam: Negative: Clubbing, Cyanosis, Edema Neuro Exam: Positive: Normal Speech Psych Exam: Positive: Memory Intact, Oriented x 3 Assessment /Plan Assessment Mrs. Jordan is a 50 year old female with PMH of morbid obesity s/p gastric sleeve surgery in 07/2019, a history of DM that had resolved post bariatric surgery and asthma, who presented to [facility] ED with right lower abdominal pain , nausea and vomiting and was admitted for strangulated lower abdominal incisional hernia with small bowel obstruction on 09/01/20 and then incidentally found to be COVID positive. 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 She did well initially then started decompensating from her COVID infection on 09/05/20 with increasing oxygen requirements. She developed ARDS with acute hypoxic respiratory failure and ultimately was intubated on 09/15/20. She was successfully extubated to BIPAP on 09/23/20. Hospital course was further complicated by development of right necrotizing pneumonia. 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 She remains persistently hypoxic at this time due to multiple issues : ILD - post COVID, right sided lung destruction from complicated necrotizing pneumonia. Persistent hypoxemic respiratory failure Initially due to 2/2 ARDS 2/2 COVID-19 and now post COVID interstitial lung disease, fibrosis, Right sided lung destruction from necrotizing pneumonia Pulmonary following intermittently. No Pulmonary embolism. Continue tapering of steroids about 5-10 mg / week. If sudden SOB, then immediate CXR as her pneumothorax may recur. S/P Right sided necrotizing pneumonia complicated by right pneumothorax and bronchopleural fistula. Finished [address] cefep[address] Last CT chest from 11/15/20: L lung infiltrates improved. R lung infiltrates unchanged, increased size of posteroinferior pleural air and fluid collection Chest tube on 11/05/20 discontinued on 11/18/20 Right lung will always remain at risk for getting recurrent bacterial/ fungal infections due to cavity. She is also at risk for getting recurrent pneumothorax due to her bullous disease. Persistent leucocytosis WBC is elevated . Recent crp and procal has been negative , no new fever. Likely due to steroids, chronic sickness however she is high risk of getting recurrent infections bacterial/fungal specially with cavity in her right lung. s/p Acute COVID-19 Patient has completed treatment with tocilizumab, Remdesivir, and decadron. COVID on 10/28/20 negative. DM2 in the setting of steroid use. Levemir and lispro Persistent Sinus Tachycardia Likely secondary to hypoxia, severe deconditioning. Last Echocardiogram from october shows diastolic dys, moderate pulmonary hypertension, normal EF. Continue Lopressor 50mg BID reduced cardizem to 30 tid as BPs were low. Transient Atrial fibrillation with RVR in September 2020 resolved. JAQUELINE Not using CPAP as had pneumothorax Incarcerated right lower abdominal Incisional Hernia on admission s/p surgical correction on 09/02/2020 healed surgical incisions. Physical Deconditioning/Debility Patient has an extended hospital stay of over 1 month with critical illness. She is severely debilitated. She is working with physical therapy. She will need lo ng term rehab pending clinical improvement. Constipation Bowel regimen in place Asthma continue levoalbuterol, solumedrol. steroid is being tapered. Anxiety better controlled now reduced dose of xanax from 0.5 to 0.25 tid continue atarax prn. Both leg pains and tingling. right leg cooler than the left. right dorsalis pedis is only dopplerable will check Vit b12, folate levels and start on nephrovite. H/o Morbid obesity s/p gastric sleeve surgery in 07/2019 Now has lost 20 kgs in hospital weight down form 122 kgs to 102 kgs. restart nephrovite. GI prophylaxis Protonix DISPOSITION: Will need to go to LTAC facility. Plan/VTE VTE Prophylaxis Ordered?: Yes VS, I&O, 24H, Fishbone Vital Signs/I&O Vital Signs Date Time Temp Pulse Resp B/P (MAP) Pulse Ox O2 Delivery O2 Flow Rate FiO2 11/28/20 09:07 104 111/55 11/28/20 07:34 97.0 24 94 HVNI-Vapotherm 30.0 80 I&O- Last 24 Hours up to 6 AM 11/28/20 06:00 Intake Total 780 ml Output Total 600 ml Balance 180 ml Laboratory Data 24H LABS Laboratory Tests 2 11/27/20 16:03: Bedside Glucose (Misc Panel) 155H 11/27/20 21:17: Bedside Glucose (Misc Panel) 179H 11/28/20 05:40: Bedside Glucose (Misc Panel) 130H 11/28/20 11:45: Bedside Glucose (Misc Panel) 168H MATTHEW VARGAS MD Nov 28, 2020 11:54
[2020-11-28] MEDS: SERTRALINE HCL 25 MG TABLET PO SCH (21:00)
[2020-11-28] MEDS: PERCOCET 5MG/325MG TAB PO PRN (21:03)
[2020-11-29] VITALS (8 sets, daily range): BP systolic 117–166; BP diastolic 60–88; O2SAT 91
[2020-11-29] MEDS: PERCOCET 5MG/325MG TAB PO PRN ×3 (02:27→18:33)
[2020-11-29] MEDS: CALCIUM CARBONATE 500 MG CHEW U/D PO PRN ×3 (02:34→18:31)
[2020-11-29] MEDS: SODIUM CHLORIDE 0.9% INJ 10 ML SYR IV SCH ×2 (06:59→17:45)
[2020-11-29] MEDS: LEVALBUTEROL 1.25 MG/0.5 ML CONCENTRATE NEB INH SCH ×4 (07:20→19:31)
[2020-11-29] MEDS: HumaLOG INSULIN (NovoLOG) PER UNIT SC SCH ×4 (07:30→20:23)
[2020-11-29 07:40] LABS: HEMATOCRIT 39.9 % (36.0-47.0); HEMOGLOBIN 12.3 g/dl (12.0-15.5); MEAN CORPUSCULAR HEMOGLOBIN 30.8 pg (27.0-33.0); MEAN CORPUSCULAR HGB CONC 30.8 g/dl (32.0-36.5); PLATELET COUNT, AUTOMATED 218 10^3/uL (150-450); RED BLOOD COUNT 3.99 10^6/uL (4.00-5.40); WHITE BLOOD COUNT 9.1 10^3/uL (4.0-10.0)
[2020-11-29 08:54] LABS: BLOOD UREA NITROGEN 17 MG/DL (7-18); CALCIUM LEVEL 9.5 MG/DL (8.5-10.1); CARBON DIOXIDE LEVEL 34 MEQ/L (21-32); CHLORIDE LEVEL 103 MEQ/L (98-107); CREATININE FOR GFR 0.19 MG/DL (0.55-1.30); FERRITIN 197 NG/ML (8-252); GLOMERULAR FILTRATION RATE > 60.0 (>51); GLUCOSE, FASTING 98 MG/DL (70-100); POTASSIUM SERUM 3.6 MEQ/L (3.5-5.1); SODIUM LEVEL 144 MEQ/L (136-145)
[2020-11-29 09:53] LABS: VITAMIN B12 LEVEL 819 PG/ML (247-911)
[2020-11-29 09:55] LABS: FOLATE 15.3 NG/ML (>5.4)
[2020-11-29] MEDS: ONDANSETRON 4MG/2ML VIAL IV PRN ×2 (10:31→17:45)
[2020-11-29] MEDS: MAALOX 30 ML SUSP *UDC PO PRN ×2 (10:31→18:31)
[2020-11-29] MEDS: ALPRAZolam 0.25 MG TAB PO SCH ×3 (10:33→22:08)
[2020-11-29] MEDS: PANTOPRAZOLE 40MG TAB (PROTONIX) PO SCH ×2 (10:34→22:08)
[2020-11-29] MEDS: NEPHRO-VIT TAB (NEPHROCAPS) PO SCH ×2 (10:34→22:08)
[2020-11-29] MEDS: guaiFENesin ER 600 MG TAB PO SCH ×2 (10:34→22:08)
[2020-11-29] MEDS: LEVEMIR (INSULIN DETEMIR) 1 UNITS/0.01ML SC SCH ×2 (10:35→20:34)
[2020-11-29] MEDS: methylPREDNISolone 40MG 1ML VIAL IV SCH ×2 (10:35→20:34)
[2020-11-29] MEDS: MOM 30ML SUSPENSION UDC PO SCH (10:36)
[2020-11-29] MEDS: MUPIROCIN 2% OINT 22 GM TUBE TOP SCH ×2 (10:36→22:11)
[2020-11-29] MEDS: METOPROLOL TART 50 MG TAB PO SCH ×2 (10:36→22:07)
[2020-11-29] MEDS: DOCUSATE SODIUM 100MG CAPSULE PO SCH ×2 (10:37→22:07)
[2020-11-29] MEDS: BACTRIM 160MG/800MG DS TAB PO SCH (10:37)
--- NOTE | 2020-11-29 18:26 | IPNPDOC ---
Text Note Date of Service The patient was seen on 11/29/20. NOTE SUBJECTIVE: Patient was sitting up, conversant on vapotherm. She feels unchanged from prior days. Has no additional questions on care plan. PHYSICAL EXAM: VITAL SIGNS: reviewed General Exam: AOx3, NAD, no significant increased work of breathing Eye Exam: PERRLA, EOMI, anicteric ENT Exam: MMM Neck Exam: supple, no LAD Cardiovascular: tachycardic, regular rhythm, no M/R/G Lungs: decreased breath sounds with faint bilateral crackles L>R Abdomen Exam: soft, non tender, obese Extremity Exam: No appreciable deformities Neuro Exam: AOx3 Psych Exam: Euthymic LABORATORY STUDIES: Reviewed IMAGING: No new ASSESSMENT: Mrs. Jordan is a 50 year old female with PMH of morbid obesity s/p gastric sleeve surgery in 07/2019, a history of DM that had resolved post bariatric surgery and asthma, who presented to [facility] ED with right lower abdominal pain , nausea and vomiting and was admitted for strangulated lower abdominal incisional hernia with small bowel obstruction on 09/01/20 and then incidentally found to be COVID positive. 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 She did well initially then started decompensating from her COVID infection on 09/05/20 with increasing oxygen requirements. She developed ARDS with acute hypoxic respiratory failure and ultimately was intubated on 09/15/20. She was successfully extubated to BIPAP on 09/23/20. Hospital course was further complicated by development of right necrotizing pneumonia. 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 She remains persistently hypoxic at this time due to multiple issues : ILD - post COVID, right sided lung destruction from complicated necrotizing pneumonia. PLAN: # Persistent hypoxemic respiratory failure: Initially due to 2/2 ARDS 2/2 COVID-19 and now post COVID interstitial lung disease, fibrosis, Right sided lung destruction from necrotizing pneumonia Pulmonary following intermittently. No Pulmonary embolism. Continue tapering of steroids about 5-10 mg / week. If sudden SOB, then immediate CXR as her pneumothorax may recur. # S/P Right sided necrotizing pneumonia complicated by right pneumothorax and bronchopleural fistula. Finished [address]fe[address] chest from 11/15/20: L lung infiltrates improved. R lung infiltrates unchanged, increased size of posteroinferior pleural air and fluid collection Chest tube on 11/05/20 discontinued on 11/18/20 Right lung will always remain at risk for getting recurrent bacterial/ fungal infections due to cavity. She is also at risk for getting recurrent pneumothorax due to her bullous disease. # Persistent leucocytosis WBC improved on labs today. Recent crp and procal has been negative , no new fever. Likely due to steroids, chronic sickness, no indication at this time for repeat procal, however should she fever, would consider repeating this. She is high risk of getting recurrent infections bacterial/fungal specially with cavity in her right lung. # s/p Acute COVID-19 Patient has completed treatment with tocilizumab, Remdesivir, and decadron. COVID on 10/28/20 negative. # DM2 in the setting of steroid use. Levemir and lispro # Persistent Sinus Tachycardia Likely secondary to hypoxia, severe deconditioning. Last Echocardiogram from october shows diastolic dys, moderate pulmonary hypertension, normal EF. Continue Lopressor 50mg BID reduced cardizem to 30 tid as BPs were low. # Transient Atrial fibrillation with RVR in September 2020 resolved. # JAQUELINE Not using CPAP as had pneumothorax # Incarcerated right lower abdominal Incisional Hernia on admission s/p surgical correction on 09/02/2020 healed surgical incisions. # Physical Deconditioning/Debility Patient has an extended hospital stay of over 1 month with critical illness. She is severely debilitated. She is working with physical therapy. 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 # Constipation Bowel regimen in place # Asthma continue levoalbuterol, solumedrol. steroid is being tapered. # Anxiety better controlled now reduced dose of xanax from 0.5 to 0.25 tid continue atarax prn. # H/o Morbid obesity s/p gastric sleeve surgery in 07/2019 Now has lost 20 kgs in hospital weight down form 122 kgs to 102 kgs. restart nephrovite. Dispo: PCU on tele pending wean from vapotherm DVT Prophy: Not currently on chemical prophy in setting of necrotizing pneumonia and bronchopleural fistula Diet: Controlled carbohydrate Discharge: to LTCF Consults: pulm, PT, SW VS,Fishbone, I+O VS, Fishbone, I+O Laboratory Tests 11/29/20 07:20 Vital Signs Date Time Temp Pulse Resp B/P (MAP) Pulse Ox O2 Delivery O2 Flow Rate FiO2 11/29/20 16:00 97.6 115 31 149/60 (89) 97 HVNI-Vapotherm 30.0 80 I&O- Last 24 Hours up to 6 AM 11/29/20 06:00 Intake Total 1120 ml Output Total 1150 ml Balance -30 ml PADMAJA PAREDES MD [facility] Nov 29, 2020 18:24
[2020-11-29] MEDS: NYSTATIN 100,000 UNITS/GM TOPICAL PWD 15 GM TOP PRN (18:33)
[2020-11-29 20:07] LABS: ABG BASE EXCESS 5.1 (-2.0-2.0); ABG HCO3 31.6 MEQ/L (22.0-26.0); ABG O2 SATURATION 88.4 % (95.0-99.0); ABG PARTIAL PRESSURE CO2 54.6 mmHg (35.0-45.0); ABG PARTIAL PRESSURE O2 57.1 mmHg (75.0-100.0); ABG STANDARD HCO3 28.8 MEQ/L (22.0-26.0); ABG TOTAL CO2 33.3 MEQ/L (22.0-29.0); ABG pH (ARTERIAL) 7.381 UNITS (7.350-7.450)
[2020-11-29 20:10] LABS: BASO # 0.1 10^3/uL (0.0-0.2); BASO % 0.6 % (0.0-1.0); EOS % 0.1 % (0.0-3.0); HEMATOCRIT 43.1 % (36.0-47.0); HEMOGLOBIN 13.3 g/dl (12.0-15.5); LYMPH # 1.2 10^3/uL (1.5-5.0); MEAN CORPUSCULAR HEMOGLOBIN 31.4 pg (27.0-33.0); MEAN CORPUSCULAR HGB CONC 30.9 g/dl (32.0-36.5); MEAN CORPUSCULAR VOLUME 101.9 fl (80.0-96.0); MONO # 0.7 10^3/uL (0.0-0.8); MONO % 5.6 % (2.0-8.0); NEUTROPHILS # 9.5 10^3/uL (1.5-8.5); NEUTROPHILS % 81.3 % (36.0-66.0); PLATELET COUNT, AUTOMATED 278 10^3/uL (150-450); RED BLOOD COUNT 4.23 10^6/uL (4.00-5.40); WHITE BLOOD COUNT 11.7 10^3/uL (4.0-10.0)
--- NOTE | 2020-11-29 20:34 | IPNPDOC ---
Date Seen The patient was seen on 11/29/20. Progress Note SUBJECTIVE: I was called by RN to assess patient at 19:31, reporting hypoxia for 20 min with SpO2 to 70%, presently on maximum vapotherm setting, FiO2 100% at 40 LPM. Required additional 15 LPM non rebreather, now saturating at 84%. She reports that she developed mid sternal chest pain at 1730 after eating a large meal consisting of pizza. She endorses pleuritic chest pain worse on palpation, SOB. She is not able to speak in full sentences. Patient is hesitant about intubation. OBJECTIVE PHYSICAL EXAMINATION: VITAL SIGNS: Please see below. GENERAL: in respiratory distress, speaking in 2 word sentences, use of accessory respiratory muscles HEENT: PERRLA, EOMI CARDIOVASCULAR: tachycardic to 120. RRR, normal S1, S2, no rubs or murmurs. RESPIRATORY: R lung bases rales. No wheeze appreciated. Fair air entry in L lung, reduced air entry in R lung base.. ABDOMINAL: soft, non tender, midl epigastric tendnerness to palpatio EXTREMITIES: trace edema, no cyanosis NEUROLOGICAL: CN 2-12 intact, moving all 4 limbs, alert and oriented. Answering questions appropriately LABORATORY DATA, IMAGING STUDIES, MICROBIOLOGY: Please see below. Prolonged amdmission with complicated course. Patient develoed developed ARDS with acute hypoxic respiratory failure and ultimately was intubated on 09/15/20 in setting of COVID-19 infection.. She was successfully extubated to BIPAP on 09/23/20. Hospital course was further complicated by development of right necrotizing pneumonia. 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 This evening, patient developed acute hypoxic respiratory failure, with midsternal chest pain. She requires max vapotherm oxygenation with superimposed non rebreather at 15 LPM. PROBLEMS: Acute hypoxic respiratory failure in setting of ARDS/necrotizing pneumonia, hx of R pnuemothorax requiring chest tube and complicated by BP fistula. CT removed on 11/21/20 - hypoxic to 70s. On max vapother. NRB at 15 LPM - ordered CXR, EKG, Trop, LA, CBC, CMP - ABG ordered - has hx of necrotizing R lower lobe pneumonia. Leukocytosis had resolved based on CBC from 11/29/20. Afebrile. Completed 14 days of cefepime. Presently on bactrim DS for PCP pna ppx due to dexamethasone therapy. - D/d soham Puentes uses bipap if necessary. Remains high risk for recurrent pneumothorax - request eval by ICU attending Dr. Chan - transfer to ICU for Bipap therapy. Patient remains hesitant regarding in tubation. VS, I&O, 24H, Fishbone Vital Signs/I&O Vital Signs Date Time Temp Pulse Resp B/P (MAP) Pulse Ox O2 Delivery O2 Flow Rate FiO2 11/29/20 20:01 117 117/78 (91) 87 HVNI-Vapotherm 40.0 100 11/29/20 19:41 97.7 47 I&O- Last 24 Hours up to 6 AM 11/29/20 05:59 Intake Total 1170 ml Output Total 1150 ml Balance 20 ml Laboratory Data 24H LABS Laboratory Tests 2 11/28/20 20:59: Bedside Glucose (Misc Panel) 124H 11/29/20 07:20: Nucleated Red Blood Cells % (auto) 0.3H, Anion Gap 7L, Glomerular Filtration Rate > 60.0, Calcium Level 9.5, Ferritin 197, Vitamin B12 Level 819, Folate 15.3 11/29/20 13:04: Bedside Glucose (Misc Panel) 102 11/29/20 17:13: Bedside Glucose (Misc Panel) 255H 11/29/20 19:39: Bedside Glucose (Misc Panel) 214H 11/29/20 19:50: Immature Granulocyte % (Auto) 2.4, Neutrophils (%) (Auto) 81.3H, Lymphocytes (%) (Auto) 10.0L, Monocytes (%) (Auto) 5.6, Eosinophils (%) (Auto) 0.1, Basophils (%) (Auto) 0.6, Neutrophils # (Auto) 9.5H, Lymphocytes # (Auto) 1.2L, Monocytes # (Auto) 0.7, Eosinophils # (Auto) 0.0, Basophils # (Auto) 0.1, Nucleated Red Blood Cells % (auto) 0.6H 11/29/20 20:00: Blood Gas Bicarbonate Standard 28.8H, Arterial Blood pH 7.381, Arterial Blood Partial Pressure CO2 54.6H, Arterial Blood Partial Pressure O2 57.1L, Arterial Blood Total CO2 33.3H, Arterial Blood HCO3 31.6H, Arterial Blood Base Excess 5.1H, Arterial Blood Oxygen Saturation 88.4L 11/29/20 20:05: CBC/BMP Laboratory Tests 11/29/20 07:20 11/29/20 19:50 JUANA TAYLOR MD Nov 29, 2020 20:34
[2020-11-29 20:43] LABS: ALBUMIN 2.9 GM/DL (3.2-5.2); ALT/SGPT 49 U/L (12-78); BILIRUBIN,TOTAL 0.3 MG/DL (0.2-1.0); BLOOD UREA NITROGEN 25 MG/DL (7-18); CALCIUM LEVEL 9.2 MG/DL (8.5-10.1); CARBON DIOXIDE LEVEL 34 MEQ/L (21-32); CHLORIDE LEVEL 104 MEQ/L (98-107); CREATININE FOR GFR 0.37 MG/DL (0.55-1.30); GLOMERULAR FILTRATION RATE > 60.0 (>51); GLUCOSE, FASTING 187 MG/DL (70-100); LIPASE 193 U/L (73-393); POTASSIUM SERUM 3.8 MEQ/L (3.5-5.1); SODIUM LEVEL 143 MEQ/L (136-145); TOTAL PROTEIN 6.3 GM/DL (6.4-8.2); TROPONIN I 0.02 NG/ML (< 0.10)
--- NOTE | 2020-11-29 21:48 | CCN ---
CRITICAL CARE NOTE DATE: 11/29/2020 Critical care time was 41 minutes. This excludes all procedures. SUBJECTIVE: I was called by the on-call physician to attend to Miss Senia Kumari for hypoxia. She has been having worsening hypoxia although her ongoing fibrotic lung disease has continued to have her require 80% FiO2 over the past week. She is now up to 100% FiO2 40 liters, sating high 80's. When speaking with her she actually has a stronger voice than my last visit with her. She is having a lot of belching. She states she ate pizza today and that caused her to have GI upset. When discussing with her if she wanted mechanical ventilation, she said "no". At this point in time because of the bleb formation in her lungs, I think it is better to keep her just on Vapotherm high flow rather than convert her to bilevel non-invasive therapy at this point in time. She states she feels okay but is just a little short of breath and has gas. The patient states that after discussing intubation, mechanical ventilation and CPR, she would not want CPR or mechanical ventilation. Apparently the patient has been off anticoagulation. I am not sure the exact reason. OBJECTIVE: PHYSICAL EXAMINATION: VITAL SIGNS: Temperature is 97.7, pulse is 117, respiratory rate is 47, blood pressure is 117/78 with a MAP of 91. Oxygen saturation is 87% on 100% FiO2 40 liters. GENERAL APPEARANCE: Awake, alert. Speech is clear, much less dyspneic than on prior interviews. HEENT: Sclerae clear and anicteric. Pupils are equal and reactive to light. Mucous membranes are moist. Tongue is midline. NECK: Supple. No tracheal deviation or mass. LYMPH: No cervical or supraclavicular or axillary adenopathy. CARDIAC: Distant S1, S2, without audible murmurs, rubs or gallops. No elevated JVP. No systemic edema. PULMONARY: Decreased breath sounds bilaterally. Bibasilar fibrotic rales are present. There is no expiratory wheeze. She is tachypneic. No dullness to percussion. ABDOMEN: Obese, soft, nontender, nondistended, normoactive bowel sounds. No hepatosplenomegaly. No masses or hernia. EXTREMITIES: No clubbing, cyanosis, or edema. SKIN: Pale without rashes, jaundice or bruising. IMAGING: Chest x-ray shows progressive fibrosis, worsening bleb formation on the right. LABORATORY STUDIES: White count is at 11.7, hemoglobin 13.3, hematocrit of 43.1 with a platelet count of 101. Arterial blood gas shows a pH of 7.38, pco2 of 55, pa02 of 57. IMPRESSION: Severe hypoxic respiratory failure. Recommend full dose anticoagulation for severe hypoxia, the fact that she has not been on anticoagulation for the past few days. Given the degree of her pulmonary hypertension, she should be on anticoagulation unless there is a contraindication. At this point in time I think it would more dangerous to have to transport her to the ICU for therapy that she does not want such as BIPAP and mechanical ventilation.She would likely have more hypoxia with transitioning to an ICU bed. The best course of action at this time would be having her stay in her room and attempting recovery with high flow oxygen. The patient states that she does not want resuscitation. She does not want CPR. 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 I think her prognosis is extremely poor and that she will not survive this hospitalization. The patient understands my opinion. PLAN: 1. At this point in time we will supply oxygen to maintain as high a sat as possible. 2. Continue to keep her comfortable but continue all necessary medical therapy. 3. Would avoid sedatives at this point in time. 4. The patient remains on 25 mg of IV Solu-Medrol daily with 20 mg q. h.s. 5. The patient has chosen to be DNR/DNI at this point in time. If she changes her mind, I would be happy to assist her with her wishes, however, I again feel that she has a very poor prognosis. KIMMY
[2020-11-29] MEDS: ENOXAPARIN 100MG/1ML SYRINGE (J1650 PER 10MG) SC SCH (22:07)
[2020-11-29] MEDS: hydrOXYzine 10 MG TAB PO PRN (22:07)
[2020-11-29] MEDS: SERTRALINE HCL 25 MG TABLET PO SCH (22:08)
--- NOTE | 2020-11-29 22:31 | REPVR ---
PROCEDURE INFORMATION: Exam: XR Chest Exam date and time: 11/29/2020 8:13 PM Age: 50 years old Clinical indication: Chest pain, tachypnea, desaturation, tachycardia TECHNIQUE: Imaging protocol: XR of the chest. Views: 1 view. COMPARISON: 1. [facility] PORTABLE CHEST X-RAY 11/21/2020 1:52 AM 2. [place] PORTABLE CHEST X-RAY 11/20/2020 8:11:50 AM 3. [place] PORTABLE CHEST X-RAY 11/19/2020 3:46:35 PM 4. CR PORTABLE CHEST X-RAY 11/18/2020 6:41:[address] Chest with contrast 11/15/2020 11:05:53 AM FINDINGS: Tubes, catheters and devices: There is a right-sided PICC line terminating in the superior vena cava. Lungs: There are extensive airspace opacities in both lungs, which were also present in the prior chest x-ray on 11/21/2020. Pleural spaces: There are new areas of increased lucency in the right hemithorax compared to the prior chest x-ray on 11/21/2020. Heart/Mediastinum: There is a shift of the mediastinum to the left of midline. No cardiomegaly is noted. Vasculature: There are atherosclerotic calcifications of the aortic arch. Bones/joints: An anterior plate and screws are noted in the cervical spine. Soft tissues: There is a suture line involving the stomach. IMPRESSION: 1. New areas of lucency in the right hemithorax and a right to left mediastinal shift, which are findings suspicious for a right tension pneumothorax. 2. Extensive airspace opacities in both lungs, which were also present in the prior chest x-ray on 11/21/2020. Electronically signed by: Augie Barth On 11/29/2020 22:31:18 PM
[2020-11-30] VITALS (27 sets, daily range): BP systolic 99–164; BP diastolic 56–95
[2020-11-30] MEDS: ONDANSETRON 4MG/2ML VIAL IV PRN (01:57)
[2020-11-30] MEDS: PERCOCET 5MG/325MG TAB PO PRN ×3 (01:57→19:26)
[2020-11-30] MEDS: SODIUM CHLORIDE 0.9% INJ 10 ML SYR IV SCH ×2 (06:10→17:32)
[2020-11-30] MEDS: ACETAMINOPHEN TAB 650MG DOSE (2X325MG) PO PRN (06:13)
[2020-11-30] MEDS: LEVALBUTEROL 1.25 MG/0.5 ML CONCENTRATE NEB INH SCH ×4 (07:20→19:13)
[2020-11-30] MEDS: HumaLOG INSULIN (NovoLOG) PER UNIT SC SCH ×4 (07:30→20:18)
[2020-11-30] MEDS: PANTOPRAZOLE 40MG TAB (PROTONIX) PO SCH ×2 (08:31→20:30)
[2020-11-30] MEDS: ALPRAZolam 0.25 MG TAB PO SCH ×3 (08:31→20:30)
[2020-11-30] MEDS: guaiFENesin ER 600 MG TAB PO SCH ×2 (08:31→20:30)
[2020-11-30] MEDS: NEPHRO-VIT TAB (NEPHROCAPS) PO SCH ×2 (08:31→20:30)
[2020-11-30] MEDS: MOM 30ML SUSPENSION UDC PO SCH (08:31)
[2020-11-30] MEDS: methylPREDNISolone 40MG 1ML VIAL IV SCH ×3 (08:31→20:29)
[2020-11-30] MEDS: LEVEMIR (INSULIN DETEMIR) 1 UNITS/0.01ML SC SCH ×3 (08:32→20:30)
[2020-11-30] MEDS: METOPROLOL TART 50 MG TAB PO SCH ×2 (08:32→20:19)
[2020-11-30] MEDS: DOCUSATE SODIUM 100MG CAPSULE PO SCH ×2 (08:32→20:30)
[2020-11-30] MEDS: BACTRIM 160MG/800MG DS TAB PO SCH (08:32)
--- NOTE | 2020-11-30 08:37 | REP ---
INDICATION: hypoxia COMPARISON: 11/29/2020 TECHNIQUE: Portable AP view of the chest FINDINGS: There appears to be a moderate to significant right sided pneumothorax with contralateral mediastinal shift and increased opacities involving the left lung. Findings are consistent with tension pneumothorax and have progressed since prior examination. A right-sided PICC line is identified with tip in the SVC. Skeletal structures appear intact. IMPRESSION: Findings consistent with right-sided tension pneumothorax increased from prior examination. Discussed with PCU staff <Electronically signed by Israel Holguin > 11/30/20 [id number]
--- NOTE | 2020-11-30 08:44 | CCN ---
CRITICAL CARE NOTE DATE: 11/30/2020 SUBJECTIVE: Senia is in her bed on evaluation this morning. She states she feels fatigued. Her oxygen saturations are only 79%. However, this is during sleep. I was not called with this desaturation. When I left last night, oxygen saturations were 87-88%. She is on a nonrebreather along with Vapotherm at 1.0 FiO2 and 40 liters. When the nonrebreather is removed, there is no change in her oxygen saturation. When she arouses, her sats improve slightly to 81-82. I placed her on bilevel noninvasive therapy in the room. Her oxygen saturations improved to 85-86%. Last evening she had the made the decision that she did not want to be resuscitated, that she did not want to be intubated, and, therefore, we are trying this for salvage therapy. Overall, I believe she has progressive fibrotic disease that is not steroid responsive. I do not believe she will survive this hospitalization. OBJECTIVE: VITAL SIGNS: Temperature 96.0, pulse 90, respiratory rate 27, blood pressure 164/95 with an oxygen saturation now of 85-86 on 19/03 along with having Vapotherm at 1.0 FiO2 and 40 liters. GENERAL: Patient is awake, alert, and at this point in time not tachypneic. HEENT: Sclera clear, nonicteric. Pupils equal and reactive to light. Mucous membranes moist without lesions. NECK: Supple. No tracheal deviation or mass. LYMPHS: No cervical, supraclavicular, or axillary adenopathy. CARDIAC: Distant S1 and S2, tachycardic without murmur, rub, or gallop. PMI is difficult to palpate due to body habitus. PULMONARY: Decreased breath sounds throughout both lung nuñez, but I hear good breath sounds on the right. ABDOMEN: Obese, soft, nontender, nondistended. No hepatosplenomegaly, masses, or hernia. EXTREMITIES: No cyanosis, clubbing, or edema. SKIN: Pale without rash, jaundice, or bruising. LABORATORY DATA: Laboratory evaluation has not yet been performed yet this morning. I reordered the canceled cxr this am. 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 Overall I do not believe the patient will survive this hospitalization. I do not believe she is a candidate for a lung transplant. Will continue to support her and assist with hypoxia, but I feel that this will likely be progressive over time. I would recommend continuing full anticoagulation. I am not sure why she was not on DVT prophylaxis prior to my evaluation yesterday. She has severe hypoxia and pulmonary hypertension. Therefore, would continue full dose anticoagulation unless there is a contraindication. Addendum: cxr shows worsening pneumothorax, Dr. Pena took patient to chest CT and placed chest tube at bedside. KIMMY
[2020-11-30] MEDS ORDERED: MIDAZOLAM INJ 2MG/2ML VIAL (J2250 PER 1MG) As Ordered ONE (09:00)
[2020-11-30] MEDS ORDERED: LIDOCAINE 1% MDV 20ML VIAL As Ordered ONE (09:01)
[2020-11-30] MEDS ORDERED: flumazeniL 0.5 MG/5 ML VIAL As Ordered ONE (09:01)
--- NOTE | 2020-11-30 09:08 | REP ---
INDICATION: right pneumo? COMPARISON: None TECHNIQUE: Axial noncontrast images from the thoracic inlet to the upper abdomen with coronal and sagittal reformations. This CT examination was performed using the following dose reduction techniques: Automated exposure control, adjustment of mA and/or kv according to the patient's size, and use of iterative reconstruction technique. FINDINGS: Examination is limited by significant motion artifact. There is a large right-sided pneumothorax with essentially near complete collapse to the right upper lobe, right middle lobe and right lower lobes and associated contralateral mediastinal shift into the left hemithorax. Left lung demonstrates scattered atelectasis and airspace disease primarily involving the perihilar and upper lung regions. No effusion. No left-sided pneumothorax. IMPRESSION: Right-sided tension pneumothorax with contralateral mediastinal shift and presumed elements of compressive atelectasis and airspace disease involving the left lung. <Electronically signed by Israel Holguin > 11/30/20 0992
[2020-11-30] MEDS: MUPIROCIN 2% OINT 22 GM TUBE TOP SCH ×2 (09:09→20:31)
[2020-11-30] MEDS ORDERED: MIDAZOLAM INJ 2MG/2ML VIAL (J2250 PER 1MG) IV ONE (09:09)
[2020-11-30] MEDS ORDERED: LIDOCAINE 1% MDV 20ML VIAL SC ONE (09:09)
[2020-11-30] MEDS ORDERED: KETOROLAC 30 MG/ML 1ML VIAL As Ordered ONE (09:16)
--- NOTE | 2020-11-30 09:39 | REP ---
INDICATION: S/P chest tube placement COMPARISON: 11/30/2020 at 8:15 a.m. TECHNIQUE: Portable AP view of the chest FINDINGS: Right-sided chest tube has been placed and there has been appropriate re-expansion of the right lung. The mediastinum is now in essentially normal midline position. No obvious residual pneumothorax identified by current portable examination. Bilateral airspace disease noted. IMPRESSION: Satisfactory respect chin to the right hemithorax. No obvious residual pneumothorax identified. Bilateral airspace disease. <Electronically signed by Israel Holguin > 11/30/20 0917
[2020-11-30] MEDS: ENOXAPARIN 100MG/1ML SYRINGE (J1650 PER 10MG) SC SCH ×2 (09:55→20:29)
[2020-11-30] MEDS ORDERED: KETOROLAC 30 MG/ML 1ML VIAL IV ONE (10:00)
--- NOTE | 2020-11-30 12:29 | RO ---
OPERATIVE NOTE DATE OF OPERATION: 11/30/2020 INDICATION FOR PROCEDURE: Last night I received a call from the hospitalist indicating that Mrs. Kumari was desaturating. He had obtained a chest x-ray and there was no pneumothorax. His question to me was to whether he could restart her on CPAP and my response was that he had to do what was best in the patient's interest with the acute situation. This morning when reviewing chest x-rays, I noted that Mrs. Kumari had a pneumothorax again on the right which was confirmed by CT scan. Therefore an emergent anterior chest tube was placed. PREOPERATIVE DIAGNOSIS: POSTOPERATIVE DIAGNOSIS: PROCEDURE: SURGEON: Ricardo Pena MD PAPER SPOOLER: ANESTHESIA: DESCRIPTION OF PROCEDURE: Under satisfactory monitored sedation, she was given 2 mg of Versed. The patient was prepped and draped in the usual sterile fashion. Because a portion of the lung was adherent to the anterior chest wall in and around the second intercostal space, an incision was made over the fourth rib into the third intercostal space where a tunnel was created. A #20 chest tube was placed without difficulty. It was connected to the Pleur-Evac with a townsend of air. It was secured to the chest wall with a #3 Tevdek suture. The patient tolerated the procedure well. A chest x-ray showed the lung to be again expanded to the chest wall. Air saturations went from 75% to 95%. MTDD
--- NOTE | 2020-11-30 13:17 | IPNPDOC ---
Text Note Date of Service The patient was seen on 11/30/20. NOTE Subjective: Patient seen and examined this morning in the ICU. Patient with BiPAP in place. Appears to be asleep but arousable unable to ask her questions. She appears controlled. Overnight patient was desaturating night attending Dr. Eduardo consulted with technical implementation lead Dr. Chan who saw the patient at bedside she was placed on BiPAP her saturation appealed to do better. Unfortunately in the photoengraving supervisor hours she became hypoxic again and Dr. Pena cardiothoracic surgeon order chest CT that showed worsening of her pneumothorax and placed chest tube at bedside. Patient was moved to the ICU. Prior to worsening CODE STATUS discussion was had last evening by night team and patient expressed she wanted to be DNR/DNI. Objective: Constitutional: Asleep difficult to arouse likely from the versed she just received prior to chest tube placement. in no apparent distress. obese. Appears very ill. ENT: Sclera are clear. Mucosa is moist. Respiratory: Lungs sounds difficult to appreciate with BiPAP in place appears to have bilateral air entry. Right-sided chest tube in place. Cardiovascular: Tachycardia regular rhythm no appreciable murmurs heart sounds are distant due to large body habitus Gastrointestinal: Abdomen is soft, non distended, non tender, BS present. Musculoskeletal: No lower extremity edema. Neurologic: Unable to assess Skin: No visible rashes Assessment/plan: Mrs. Jordan is a 50 year old female with PMH of morbid obesity s/p gastric sleeve surgery in 07/2019, a history of DM that had resolved post bariatric surgery and asthma, who presented to [facility] ED with right lower abdominal pain , nausea and vomiting and was admitted for strangulated lower abdominal incisional hernia with small bowel obstruction on 09/01/20 and then incidentally found to be COVID positive. 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 She did well initially then started decompensating from her COVID infection on 09/05/20 with increasing oxygen requirements. She developed ARDS with acute hypoxic respiratory failure and ultimately was intubated on 09/15/20. She was successfully extubated to BIPAP on 09/23/20. Hospital course was further complicated by development of right necrotizing pneumonia. 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 She remains persistently hypoxic at this time due to multiple issues : ILD - post COVID, right sided lung destruction from complicated necrotizing pneumonia. Another R sided pneumothorax s/p chest tube on 11/30/20 # Right-sided pneumothorax: Seen on chest CT 11/30/2020, Chest tube placed by Dr Pena. Moved to ICU. BiPAP use per pulm. 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 Her prognosis is poor. Full dose anticoagulation. # Persistent hypoxemic respiratory failure: Initially due to 2/2 ARDS 2/2 COVID- 19 and now post COVID interstitial lung disease, fibrosis, Right sided lung destruction from necrotizing pneumonia. Pulmonary following. Continue tapering of steroids about 5-10 mg / week. # S/P Right sided necrotizing pneumonia complicated by right pneumothorax and bronchopleural fistula. Finished 14 days of cefepime Last CT chest from 11/15/20: L lung infiltrates improved. R lung infiltrates unchanged, increased size of posteroinferior pleural air and fluid collection Chest tube on 11/05/20 discontinued on 11/18/20 Right lung will always remain at risk for getting recurrent bacterial/ fungal infections due to cavity. She is also at risk for getting recurrent pneumothorax due to her bullous disease - which occurred on 11/30 # Mild leucocytosis: Likely in the setting of prolonged steroid use. # s/p Acute COVID-19 :Patient has completed treatment with tocilizumab, Remdesivir, and decadron. COVID on 10/28/20 negative. # DM2:in the setting of steroid use. Levemir and lispro # Persistent Sinus Tachycardia: Likely secondary to hypoxia, severe deconditioning. Last Echocardiogram from october shows diastolic dys, moderate pulmonary hypertension, normal EF. Continue Lopressor 50mg BID. cardizem. # Transient Atrial fibrillation with RVR in September 2020. resolved. # JAQUELINE: Use of CPAP/biPAP per pulm given pneumothorax # Incarcerated right lower abdominal Incisional Hernia on admission: s/p surgical correction on 09/02/2020. healed surgical incisions. # Physical Deconditioning/Debility: Patient has an extended hospital stay of over 1 month with critical illness. She is severely debilitated. She is working with physical therapy. She will need rn long term care rehab pending clinical improvement. # Constipation Bowel regimen in place # Asthma: continue levoalbuterol, solumedrol. steroid taper # Anxiety. xanax PRN atarax prn. # H/o Morbid obesity s/p gastric sleeve surgery in 07/2019. Complicates care # DVT prophylaxis: Lovenox therapeutic dose A Alvaro Hospitalist VS,Luis, I+O VS, [place]ebone, I+O Laboratory Tests 11/29/20 19:50 Vital Signs Date Time Temp Pulse Resp B/P (MAP) Pulse Ox O2 Delivery O2 Flow Rate FiO2 11/30/20 11:49 26 94 NIPPV (BIPAP/CPAP) 100 11/30/20 11:00 112 142/71 (94) 11/30/20 10:00 97.0 11/30/20 08:00 40.0 I&O- Last 24 Hours up to 6 AM 11/30/20 06:00 Intake Total 300 ml Output Total 700 ml Balance -400 ml CAMILA HEDRICK MD Nov 30, 2020 13:17
[2020-11-30] MEDS ORDERED: NS 1,000 ML IV ONE (14:20)
--- NOTE | 2020-11-30 17:32 | ECGEPIP ---
[facility] Test Date: 2020-11-29 Pat Name: LANDON BETANCOURT Department: Room: [place] [address] Gender: Female Dye Lab Technician: PCOnelia : 1970 Requested By: JUANA TAYLOR Order Number: [id number] Reading MD: Andrea Jones Measurements Intervals [place] Rate: 113 P: 79 MT: 128 QRS: 5 QRSD: 86 T: 118 QT: 326 QTc: 447 Interpretive Statements sinus tachycardia Nonspecific ST/T wave abnormalities. Repolarization abnormalities minimally more prominent than 11/02/20 Clinical correlation advised Electronically Signed on 11-30-2020 17:32:20 EDT by Andrea Jones
[2020-11-30] MEDS: SERTRALINE HCL 25 MG TABLET PO SCH (20:30)
[2020-12-01] VITALS (33 sets, daily range): BP systolic 95–161; BP diastolic 53–103
[2020-12-01] MEDS: hydrOXYzine 10 MG TAB PO PRN (00:02)
[2020-12-01] MEDS ORDERED: MORPHINE 2 MG/ML 1ML VIAL (J2270) As Ordered ONE (00:17)
[2020-12-01] MEDS ORDERED: METOPROLOL 5 MG/5 ML VIAL As Ordered ONE (00:17)
[2020-12-01] MEDS: LEVALBUTEROL 1.25 MG/0.5 ML CONCENTRATE NEB NEB PRN ×2 (00:18→05:32)
[2020-12-01] MEDS ORDERED: FUROSEMIDE 40MG/4ML VIAL (J1940) As Ordered ONE (00:19)
[2020-12-01] MEDS ORDERED: METOPROLOL 5 MG/5 ML VIAL IV STA ×2 (00:31→05:47)
[2020-12-01] MEDS ORDERED: MORPHINE 2 MG/ML 1ML VIAL (J2270) IV ONE (00:35)
[2020-12-01] MEDS ORDERED: FUROSEMIDE 40MG/4ML VIAL (J1940) IV ONE (00:35)
[2020-12-01] MEDS ORDERED: LORazepam 2 MG/ML VIAL IV STA (01:40)
[2020-12-01] MEDS: PERCOCET 5MG/325MG TAB PO PRN (05:13)
[2020-12-01] MEDS: SODIUM CHLORIDE 0.9% INJ 10 ML SYR IV SCH ×2 (05:14→18:23)
[2020-12-01 05:34] LABS: HEMATOCRIT 45.4 % (36.0-47.0); HEMOGLOBIN 14.2 g/dl (12.0-15.5); MEAN CORPUSCULAR HEMOGLOBIN 31.6 pg (27.0-33.0); MEAN CORPUSCULAR HGB CONC 31.3 g/dl (32.0-36.5); MEAN CORPUSCULAR VOLUME 100.9 fl (80.0-96.0); PLATELET COUNT, AUTOMATED 301 10^3/uL (150-450); WHITE BLOOD COUNT 14.2 10^3/uL (4.0-10.0)
[2020-12-01] MEDS ORDERED: METOPROLOL 5 MG/5 ML VIAL IV PRN (05:50)
[2020-12-01 06:18] LABS: BLOOD UREA NITROGEN 19 MG/DL (7-18); CARBON DIOXIDE LEVEL 41 MEQ/L (21-32); CHLORIDE LEVEL 97 MEQ/L (98-107); CREATININE FOR GFR 0.24 MG/DL (0.55-1.30); GLOMERULAR FILTRATION RATE > 60.0 (>51); GLUCOSE, FASTING 131 MG/DL (70-100); SODIUM LEVEL 140 MEQ/L (136-145)
[2020-12-01 06:19] LABS: ALBUMIN 3.2 GM/DL (3.2-5.2); ALT/SGPT 46 U/L (12-78); BILIRUBIN,TOTAL 0.6 MG/DL (0.2-1.0); CALCIUM LEVEL 9.2 MG/DL (8.5-10.1); CHOLESTEROL LEVEL 229 MG/DL (< 200); CPK CREATINE PHOSPHOKINASE 32 U/L (26-192); LDH LACTATE DEHYDROGENASE 501 U/L (84-246); PHOSPHORUS LEVEL 3.2 MG/DL (2.5-4.9); TOTAL PROTEIN 6.7 GM/DL (6.4-8.2); TRIGLYCERIDES LEVEL 359 MG/DL (<150)
[2020-12-01] MEDS: HumaLOG INSULIN (NovoLOG) PER UNIT SC SCH ×4 (07:13→20:29)
[2020-12-01] MEDS: MORPHINE 2 MG/ML 1ML VIAL (J2270) IV PRN ×4 (07:45→22:19)
[2020-12-01] MEDS: LEVALBUTEROL 1.25 MG/0.5 ML CONCENTRATE NEB INH SCH ×4 (08:05→19:15)
--- NOTE | 2020-12-01 08:19 | ECGEPIP ---
[facility] Test Date: 2020-12-01 Pat Name: LANDON BETANCOURT Department: Room: [place] [address] Gender: Female Enrollment Eligibility Representative: Unique PATEL : 1970 Requested By: MIREILLE TUCKER Order Number: [id number] Reading MD: Andrea Jones Measurements Intervals [place] Rate: 116 P: 104 NM: 122 QRS: 77 QRSD: 80 T: 113 QT: 328 QTc: 455 Interpretive Statements Sinus tachycardia P pulmonale Somewhat low limb voltages Nonspecific ST/T wave abnormalities RA strain and slightly more prominent repolarization abnormalities compared with 0 11/29/20 Electronically Signed on 12-01-2020 8:19:25 EDT by Andrea Jones
--- NOTE | 2020-12-01 08:19 | IPNPDOC ---
Text Note Date of Service The patient was seen on 12/01/20. NOTE Subjective: Patient seen and examined this morning in the ICU. I was told by her daytime nurse she had episodes of respiratory distress overnight she was feeling anxious she had tachycardia and had desaturated down to the 80s. This morning evening showed the chest tube was not positioned well and Dr. Pena had to replace the chest tube this morning. Patient had just received Versed prior to the procedure and again today was difficult to arouse. Her nurse tells me that prior to receiving the Versed patient was arousable awake and conversing. She had a fever 100.7 at 5am. Objective: Constitutional: Asleep difficult to arouse likely from the versed she just received again today just prior to chest tube placement. in no apparent distress. obese. Appears ill. ENT: Sclera are clear. Mucosa is moist. Respiratory: Lungs sounds difficult to appreciate with BiPAP in place appears to have bilateral air entry. Right-sided chest tube in place. Cardiovascular: Tachycardia regular rhythm no appreciable murmurs heart sounds are distant due to large body habitus Gastrointestinal: Abdomen is soft, non distended, non tender, BS present. Musculoskeletal: No lower extremity edema. Neurologic: Unable to assess Skin: No visible rashes Assessment/plan: Mrs. Jordan is a 50 year old female with PMH of morbid obesity s/p gastric sleeve surgery in 07/2019, a history of DM that had resolved post bariatric surgery and asthma, who presented to [facility] ED with right lower abdominal pain , nausea and vomiting and was admitted for strangulated lower abdominal incisional hernia with small bowel obstruction on 09/01/20 and then incidentally found to be COVID positive. 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 She did well initially then started decompensating from her COVID infection on 09/05/20 with increasing oxygen requirements. She developed ARDS with acute hypoxic respiratory failure and ultimately was intubated on 09/15/20. She was successfully extubated to BIPAP on 09/23/20. Hospital course was further complicated by development of right necrotizing pneumonia. 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 She remains persistently hypoxic at this time due to multiple issues : ILD - post COVID, right sided lung destruction from complicated necrotizing pneumonia. Another R sided pneumothorax s/p chest tube on 11/30/20 and tube replacement on 12/01/20. # Right-sided pneumothorax: Seen on chest CT 11/30/2020, Chest tube placed by Dr Pena and again replaced on 12/01/20. BiPAP use per pulm. 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 Her prognosis is poor. Full dose ant icoagulation. # Tachycardia: likely related to her hypoxia and acute illness. # Leukocytosis: uptrending. Could be reactive due to acute illness and hypoxia as well as prolonged steroid use. 1 episode fever 100.7. Started on IV ceftriaxone. # Persistent hypoxemic respiratory failure: Initially due to 2/2 ARDS 2/ COVID- 19 and now post COVID interstitial lung disease, fibrosis, Right sided lung destruction from necrotizing pneumonia. Pulmonary following. Steroids. # S/P Right sided necrotizing pneumonia complicated by right pneumothorax and bronchopleural fistula. Finished [address] of cefepime Last CT chest from 11/15/20: L lung infiltrates improved. R lung infiltrates unchanged, increased size of posteroinferior pleural air and fluid collection Chest tube on 11/05/20 discontinued on 11/18/20 Right lung will always remain at risk for getting recurrent bacterial/ fungal infections due to cavity. She is also at risk for getting recurrent pneumothorax due to her bullous disease - which occurred on 11/30 # s/p Acute COVID-19 :Patient has completed treatment with tocilizumab, Remdesivir, and decadron. COVID on 10/28/20 negative. # DM2:in the setting of steroid use. Levemir and lispro # Persistent Sinus Tachycardia: Likely secondary to hypoxia, severe deconditioning. Last Echocardiogram from october shows diastolic dys, moderate pulmonary hypertension, normal EF. Continue Lopressor 50mg BID. cardizem. # Transient Atrial fibrillation with RVR in September 2020. resolved. # JAQUELINE: Use of CPAP/biPAP per pulm given pneumothorax # Incarcerated right lower abdominal Incisional Hernia on admission: s/p surgical correction on 09/02/2020. healed surgical incisions. # Physical Deconditioning/Debility: Patient has an extended hospital stay of over 1 month with critical illness. She is severely debilitated. She is working with physical therapy. She will need residential rehab pending clinical improvement. # Constipation Bowel regimen in place # Asthma: continue levoalbuterol, solumedrol. steroid taper # Anxiety. xanax PRN atarax prn. # H/o Morbid obesity s/p gastric sleeve surgery in 07/2019. Complicates care # DVT prophylaxis: Lovenox therapeutic dose A Alvaro Hospitalist VS,Luis, I+O VS, Fishbone, I+O Laboratory Tests 12/01/20 05:19 Vital Signs Date Time Temp Pulse Resp B/P (MAP) Pulse Ox O2 Delivery O2 Flow Rate FiO2 12/01/20 08:05 88 12/01/20 05:52 141 119/80 12/01/20 05:43 36 NIPPV (BIPAP/CPAP) 12/01/20 05:00 100.7 90 11/30/20 08:00 40.0 I&O- Last 24 Hours up to 6 AM 12/01/20 06:00 Intake Total 1730 ml Output Total 2302 ml Balance -572 ml CAMILA HEDRICK MD Dec 01, 2020 08:19
--- NOTE | 2020-12-01 08:39 | REP ---
INDICATION: S/P pneumothorax with chest tube placement COMPARISON: 11/30/2020 at 9:23 a.m. TECHNIQUE: Portable AP view of the chest FINDINGS: Despite the right chest tube the moderate to large tension pneumothorax has reoccurred and position of chest tube should be confirmed as its tip may be abutting the thoracic wall. There is associated contralateral mediastinal shift and acute on chronic interstitial/alveolar opacities involving the left hemithorax. IMPRESSION: 1. Right-sided tension pneumothorax has recurred and requires evaluation. <Electronically signed by Israel Holguin > 12/01/20 0891
[2020-12-01] MEDS ORDERED: LIDOCAINE 2% MDV 20ML VIAL As Ordered ONE (08:52)
[2020-12-01] MEDS ORDERED: flumazeniL 0.5 MG/5 ML VIAL As Ordered ONE (08:52)
[2020-12-01] MEDS ORDERED: MIDAZOLAM INJ 2MG/2ML VIAL (J2250 PER 1MG) As Ordered ONE (08:53)
--- NOTE | 2020-12-01 08:58 | CCN ---
CRITICAL CARE NOTE DATE: 12/01/2020 CRITICAL CARE TIME: 1 hour and 16 minutes. This excludes all procedures. SUBJECTIVE: At bedside this morning there was no air leak. I converted the patient over to Vapotherm to decrease her pressure therapy and she desatted. I put her back on BiPAP. X-ray had not been done yet this morning. I ordered this to be done stat. It shows worsening pneumothorax since the placement of the chest tube yesterday. I unbandaged the chest tube. There is no air leak. There is no tidaling. There is serosanguineous fluid within the chest tube. The chest tube does not appear to be kinked at this point in time. The patient is awake and alert. She was complaining of some discomfort. I gave her 2 mg of Morphine which did help assist her symptoms. She was quite tachycardic overnight. I was not called with this. She was given Lopressor and Lasix. She has more metabolic alkalosis this morning. OBJECTIVE: Vital signs: Temperature is 100.7, pulse is 141, respiratory rate is 36, blood pressure is 119/80. Input and output: She was net positive 500 mL yesterday. General: In some respiratory disturbance, tachypneic. SKIN: Cool with some minimal lower extremity mottling. HEENT: Sclerae are clear, nonicteric. Pupils are equal and reactive to light. Mucous membranes are moist without lesions. Tongue is midline. Neck is supple. No jugular deviation or mass. Lymph: No cervical, supraclavicular, or axillary adenopathy. Cardiac: Tachycardic, S1, S2, irregularly irregular without murmur, rub, or gallop. There is elevated JVP and no pulmonary edema. Pulmonary: No breath sounds auscultated on the right. Left fairly clear at base, a few rales. Abdomen: Obese, soft, nontender, nondistended, no discernible hepatosplenomegaly. No masses or hernia. Extremities: No cyanosis, clubbing, or edema. Minimal mottling, very cool to touch but palpable dorsalis pedis and posterior tibial pulse bilaterally. Laboratory evaluation shows a leukocytosis of 14.2, hemoglobin 14.2. Hematocrit 45.1, with a platelet count of 301. Sodium is 140, potassium 4.0, chloride is 97, bicarb of 41, BUN 19, creatinine 0.21 with a glucose of 131. Chest x-ray from this morning shows worsening pneumothorax on the right despite chest tube placement. There is no depression of the diaphragm. It does not appear to be tension. ASSESSMENT/PLAN: 1. Severe hypoxic respiratory failure secondary to fibrotic/bullous lung disease after severe COVID infection, now with recurrent pneumothorax. We will continue to monitor the patient in the ICU, supply oxygen therapy. Dr. Pena and I discussed the case. He is coming in to adjust and/or replace chest tube. In the meantime I will monitor if she needs more urgent intervention then I would intervene. 2. GI prophylaxis on Protonix. 3. Tachycardia likely secondary to hypoxia. 4. Leukocytosis may be secondary to severe hypoxia and recurrent pneumothorax. However, given her low grade fever, I put her on ceftriaxone. We will obtain blood cultures and sputum cultures. 5. DVT prophylaxis, on full-dose Lovenox, also because of likelihood of severe pulmonary hypertension. 6. Metabolic alkalosis. Would avoid diuretics at this point in time. 7. The patient remains critically ill, high risk of . Overall poor prognosis. The patient is starting to lean towards Palliative Care and actually requests to have a conversation about hospice. We will continue these efforts today.
[2020-12-01] MEDS: MOM 30ML SUSPENSION UDC PO SCH (09:00)
[2020-12-01] MEDS: DOCUSATE SODIUM 100MG CAPSULE PO SCH ×2 (09:00→20:27)
[2020-12-01] MEDS: ALPRAZolam 0.25 MG TAB PO SCH ×3 (09:00→20:28)
[2020-12-01] MEDS: guaiFENesin ER 600 MG TAB PO SCH ×2 (09:00→21:00)
[2020-12-01] MEDS: NEPHRO-VIT TAB (NEPHROCAPS) PO SCH ×2 (09:00→21:00)
[2020-12-01] MEDS: BACTRIM 160MG/800MG DS TAB PO SCH (09:00)
[2020-12-01] MEDS: MUPIROCIN 2% OINT 22 GM TUBE TOP SCH ×2 (09:00→20:29)
--- NOTE | 2020-12-01 09:04 | REP ---
INDICATION: pneumothorax,recurrent COMPARISON: Multiple latest 11/30/2020 TECHNIQUE: Standard helical technique without intravenous contrast administration FINDINGS: There is no significant change in appearance of the mediastinum or pulmonary fausto. There is no significant change in appearance of the imaged upper abdomen or imaged osseous structures. Evaluation of the lung nuñez shows no significant change compared to yesterday when the technical differences between the examinations are taken into consideration. There is a right-sided thoracotomy tube seen today not present on the prior exam, however, the tube is superficial to the right anterior ribcage terminating in the soft tissues. IMPRESSION: 1. There is no change in appearance of the lung nuñez or cardiomediastinal silhouette. There is a persistent tension pneumothorax and other related findings previously discussed. 2. The thoracotomy tube is extra thoracic as described above. A stat report was generated at the time of this dictation and phone call was placed to Dr. Ricardo Pena to discuss these findings at this time. Critical Findings: Extra thoracic right-sided thoracotomy tube with persistent tension pneumothorax. The critical information above was relayed directly by me by telephone to Dr. Ricardo Pena on 12/01/2020 at 8:59 am with readback verification. <Electronically signed by Devonte Aragon > 12/01/20 0900
[2020-12-01] MEDS ORDERED: flumazeniL 0.5 MG/5 ML VIAL IV STA (09:19)
[2020-12-01] MEDS ORDERED: MIDAZOLAM INJ 2MG/2ML VIAL (J2250 PER 1MG) IV STA (09:19)
[2020-12-01] MEDS ORDERED: LIDOCAINE 2% MDV 20ML VIAL SC ONE (09:20)
--- NOTE | 2020-12-01 09:27 | REP ---
INDICATION: chest tube insertion COMPARISON: 12/01/2020 at 7:23 a.m. TECHNIQUE: Portable AP view of the chest FINDINGS: Right-sided chest tube has been repositioned and there is been satisfactory re-expansion to the right right lung. Bilateral acute on chronic pleuroparenchymal changes and alveolar opacities again noted. Small residual right pneumothorax cannot be excluded. No obvious effusion. Right PICC line with tip in the SVC. Visualized portions of the mediastinum and cardiac silhouette are within normal limits and stable. Skeletal structures are intact. IMPRESSION: Satisfactory re-expansion of the right lung. Small residual right pneumothorax cannot be excluded. Diffuse bilateral pleuroparenchymal changes similar to prior examinations. <Electronically signed by Israel Holguin > 12/01/20 [id number]
--- NOTE | 2020-12-01 11:00 | RO ---
OPERATIVE NOTE DATE OF OPERATION: 12/01/2020 OPERATIVE INDICATIONS: I was called by Dr. Chan noting that Ms. Kumari has started to desaturate overnight and was cyanotic. She noted that the chest tube did not have any air leak and was not tidaling. Chest x-ray showed the patient to have a pneumothorax with signs of tension on the right hand side. Dr. Chan untapped the chest tube and it was found not to be kinked. She was therefore brought down to CT scan and it was clear the chest tube had come out of the chest. PREOPERATIVE DIAGNOSIS: POSTOPERATIVE DIAGNOSIS: PROCEDURE: Insertion of right anterior superior chest tube. SURGEON: Ricardo Pena M.D. PROFESSOR OF VEGETABLE SCIENCE: None. ANESTHESIA: 4 mg Versed. DESCRIPTION OF PROCEDURE: Under satisfactory moderate sedation achieved with 4 mg of Versed, the patient was prepped and draped in the usual sterile fashion. As the wound was less than 24 hours old, the wound was again infiltrated with 1% Lidocaine down to the pleura. Chest tube was removed and another chest tube was placed in the same tract after dilating the tract. At this time, a #24 chest tube was placed well within the chest. There was a continuous air leak and a chest x-ray showed her lung expanded to the chest wall once again. This was secured to the chest wall with a #2 Tevdek suture.
[2020-12-01] MEDS: PANTOPRAZOLE 40MG VIAL (C9113 PER 1) IV SCH ×2 (11:11→22:14)
[2020-12-01] MEDS: methylPREDNISolone 40MG 1ML VIAL IV SCH ×2 (11:11→20:28)
[2020-12-01] MEDS: ENOXAPARIN 100MG/1ML SYRINGE (J1650 PER 10MG) SC SCH ×2 (11:11→20:28)
[2020-12-01] MEDS: cefTRIAXone SOD 1 GM in D5W MINI-BAG PLUS 50 ML IV SCH (11:12)
[2020-12-01] MEDS: METOPROLOL TART 50 MG TAB PO SCH ×2 (11:38→20:27)
[2020-12-01] MEDS: SERTRALINE HCL 25 MG TABLET PO SCH (20:27)
[2020-12-01] MEDS: LEVEMIR (INSULIN DETEMIR) 1 UNITS/0.01ML SC SCH (21:00)
[2020-12-01] MEDS: ONDANSETRON 4MG/2ML VIAL IV PRN (22:24)
[2020-12-02] VITALS (12 sets, daily range): BP systolic 108–131; BP diastolic 56–76
[2020-12-02] MEDS: MORPHINE 2 MG/ML 1ML VIAL (J2270) IV PRN ×6 (04:36→22:04)
[2020-12-02] MEDS: ONDANSETRON 4MG/2ML VIAL IV PRN ×2 (04:43→15:14)
[2020-12-02] MEDS: SODIUM CHLORIDE 0.9% INJ 10 ML SYR IV SCH ×2 (05:31→17:52)
[2020-12-02 05:37] LABS: HEMATOCRIT 40.5 % (36.0-47.0); HEMOGLOBIN 12.5 g/dl (12.0-15.5); MEAN CORPUSCULAR HEMOGLOBIN 31.4 pg (27.0-33.0); MEAN CORPUSCULAR HGB CONC 30.9 g/dl (32.0-36.5); MEAN CORPUSCULAR VOLUME 101.8 fl (80.0-96.0); PLATELET COUNT, AUTOMATED 240 10^3/uL (150-450); RED BLOOD COUNT 3.98 10^6/uL (4.00-5.40); WHITE BLOOD COUNT 8.8 10^3/uL (4.0-10.0)
[2020-12-02 06:02] LABS: BLOOD UREA NITROGEN 23 MG/DL (7-18); CALCIUM LEVEL 9.4 MG/DL (8.5-10.1); CARBON DIOXIDE LEVEL 44 MEQ/L (21-32); CHLORIDE LEVEL 98 MEQ/L (98-107); GLOMERULAR FILTRATION RATE > 60.0 (>51); GLUCOSE, FASTING 127 MG/DL (70-100); SODIUM LEVEL 139 MEQ/L (136-145)
[2020-12-02] MEDS: HumaLOG INSULIN (NovoLOG) PER UNIT SC SCH ×4 (07:27→20:09)
[2020-12-02] MEDS: LEVALBUTEROL 1.25 MG/0.5 ML CONCENTRATE NEB INH SCH ×4 (07:39→19:15)
[2020-12-02] MEDS: cefTRIAXone SOD 1 GM in D5W MINI-BAG PLUS 50 ML IV SCH (08:00)
--- NOTE | 2020-12-02 08:05 | IPNPDOC ---
Text Note Date of Service The patient was seen on 12/02/20. NOTE Subjective: Patient was seen and examined this morning at bedside. She expresses wanting to be made comfort measures only. But also wishes for care to be withdrawn slowly to allow for family members to come and visit. I discussed healthcare proxy also and he understands and agrees with the plan. He'll be calling the unit to find out about visitations to allow for family members to come see Ms. Jordan. Objective: Constitutional: Awake today able to answer questions. In no apparent distress. obese. Appears ill, weak. ENT: Sclera are clear. Mucosa is moist. Respiratory: Lungs sounds difficult to appreciate over BiPAP in place appears to have bilateral air entry. Right-sided chest tube in place. Cardiovascular: Tachycardia regular rhythm rate 105 and monitor. Heart sounds are distant due to large body habitus Gastrointestinal: Abdomen is soft, non distended, non tender, BS present. Musculoskeletal: No lower extremity edema. Neurologic: Unable to assess Skin: No visible rashes Assessment/plan: Mrs. Jordan is a 50 year old female with PMH of morbid obesity s/p gastric sleeve surgery in 07/2019, a history of DM that had resolved post bariatric surgery and asthma, who presented to [facility] ED with right lower abdominal pain , nausea and vomiting and was admitted for strangulated lower abdominal incisional hernia with small bowel obstruction on 09/01/20 and then incidentally found to be COVID positive. 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 She did well initially then started decompensating from her COVID infection on 09/05/20 with increasing oxygen requirements. She developed ARDS with acute hypoxic respiratory failure and ultimately was intubated on 09/15/20. She was successfully extubated to BIPAP on 09/23/20. Hospital course was further complicated by development of right necrotizing pneumonia. 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 She remains persistently hypoxic due to multiple issues : ILD - post COVID, right sided lung destruction from complicated necrotizing pneumonia. Another R sided pneumothorax s/p chest tube on 11/30/20 and tube replacement on 12/01/20. 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 Her prognosis is poor. on 12/02/20 she was transitioned to TEST DESK TROUBLE LOCATOR status, decision made by the patient. Hospice was consulted. TEST DESK TROUBLE LOCATOR meds ordered. Plan to discontinue all none TEST DESK TROUBLE LOCATOR meds gradually once family members has seen patient per her wishes. Discontinuation of chest tube and bipap is per pulm. Dr Chan suspects Ms Jordan will likely with both in place. They'll be kept in for now for comfort. # Right-sided pneumothorax: Seen on chest CT 11/30/2020, Chest tube placed by Dr Pena and again replaced on 12/01/20. BiPAP use per pulm, now PRN. 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 Her prognosis is poor. # Tachycardia: likely related to her hypoxia and acute illness. # Leukocytosis: likely reactive. resolved. Ceftriaxone stopped. # Persistent hypoxemic respiratory failure: Initially due to 2/2 ARDS /2 COVID- 19 and now post COVID interstitial lung disease, fibrosis, Right sided lung destruction from necrotizing pneumonia. Bronchiolitis obliterans per pulm. # S/P Right sided necrotizing pneumonia: complicated by right pneumothorax and bronchopleural fistula. Finished 14 days of cefepime # s/p Acute COVID-19 :Patient has completed treatment with tocilizumab, Remdesivir, and decadron. COVID on 10/28/20 negative. # DM2:in the setting of steroid use. Levemir and lispro. Will be stopped soon. # Persistent Sinus Tachycardia: Likely secondary to hypoxia, severe deconditioning. Last Echocardiogram from october shows diastolic dys, moderate pulmonary hypertension, normal EF. Continue Lopressor 50mg BID. cardizem. S topped soon once family visits. # Transient Atrial fibrillation with RVR in September 2020. resolved. # JAQUELINE: Use of CPAP/biPAP per pulm given pneumothorax. Discontinuation per pulm # Incarcerated right lower abdominal Incisional Hernia on admission: s/p surgical correction on 09/02/2020. healed surgical incisions. # Physical Deconditioning/Debility: Patient has an extended hospital stay of over 1 month with critical illness. She is severely debilitated. # Constipation Bowel regimen in place # Asthma: continue levoalbuterol, solumedrol. # Anxiety. xanax PRN atarax prn. IV Ativan as needed # H/o Morbid obesity s/p gastric sleeve surgery in 07/2019. Complicates care # DVT prophylaxis: TEST DESK TROUBLE LOCATOR lovenox stopped. A [facility] Hospitalist Luis LEWIS, I+O Luis LEWIS I+O Laboratory Tests 12/02/20 05:23 Vital Signs Date Time Temp Pulse Resp B/P (MAP) Pulse Ox O2 Delivery O2 Flow Rate FiO2 12/02/20 07:35 100 12/02/20 06:00 113 131/76 (94) 99 NIPPV (BIPAP/CPAP) 12/02/20 04:46 25 12/02/20 04:00 98.1 11/30/20 08:00 40.0 I&O- Last 24 Hours up to 6 AM 12/02/20 06:00 Intake Total 160 ml Output Total 515 ml Balance -355 ml CAMILA HEDRICK MD Dec 02, 2020 08:05
--- NOTE | 2020-12-02 08:53 | IPN ---
PROGRESS NOTE DATE: 12/02/2020 SUBJECTIVE: Yesterday she had told her family she just wanted to be kept comfortable and had a family meeting discussing her advanced fibrotic disease. The family is starting to gather. This morning the patient states she just wants to be kept comfortable. Last evening, could not even tolerate being on Vapotherm, is now on BiPAP for respiratory distress. Imaging was not done yet this morning. OBJECTIVE: VITAL SIGNS: Temperature is 98.1, pulse is 113, blood pressure is 131/76 with a MAP of 94, oxygen saturation is 99% on 100% FIO2, respiratory rate of 17. GENERAL APPEARANCE: The patient is laying comfortably in bed complaining of right sided discomfort. HEENT: Sclera clear, nonicteric. Pupils equal and reactive to light. Mucous membranes moist without lesions. Oropharynx without erythema or exudate. BiPAP mask is in place. NECK: No elevated JVP. No thyromegaly. LYMPH NODES: No cervical, supraclavicular or axillary adenopathy. CARDIAC: Distant S1 and S2, tachycardic, irregularly irregular without murmur, rub or gallop. No significant systemic edema. PULMONARY: Decreased breath sounds bilaterally. Chest tube with positive air leak. ABDOMEN: Obese, soft, nontender and nondistended. No hepatosplenomegaly. No masses or hernia. Well-healed surgical scars. EXTREMITIES: No cyanosis, clubbing or edema. LABORATORY DATA: White count came down to 8.8, hemoglobin 12.5, platelet count of 240,000. Sodium is 139, potassium 4.0, chloride is 98, bicarbonate is up to 44, BUN 23, creatinine 0.2. Chest x-ray not yet performed. I have ordered this. IMPRESSION: 1. Patient requesting comfort measures. Will likely convert to comfort measures today. Will discuss with primary physician. Overall, patient has a very poor prognosis even if she did not convert to comfort measures. She remains a DNR/DNI. She states she is done and wants her goals of care focused on her comfort. I think this is reasonable given her underlying prognosis of severe fibrotic lung disease, probable bronchiolitis obliterans.
--- NOTE | 2020-12-02 08:57 | REP ---
INDICATION: pneumothorax. COMPARISON: Comparison chest x-ray December 01, 2020. TECHNIQUE: Portable upright AP chest radiograph. FINDINGS: A right-sided chest tube is seen in place unchanged in position superolaterally. There is a tiny right apical pneumothorax noted. There are extensive bilateral perihilar interstitial infiltrates again noted. Oxygen delivery tubing and monitoring electrodes are seen. There is a right-sided PICC line in place with its tip in the expected location of superior vena cava as before.. IMPRESSION: Tiny right apical pneumothorax. Right chest tube in place. Bilateral infiltrates unchanged.. <Electronically signed by Barney Rosado > 12/02/20 [id number]
[2020-12-02] MEDS: ENOXAPARIN 100MG/1ML SYRINGE (J1650 PER 10MG) SC SCH (09:00)
[2020-12-02] MEDS: NEPHRO-VIT TAB (NEPHROCAPS) PO SCH ×2 (09:00→20:09)
[2020-12-02] MEDS: DOCUSATE SODIUM 100MG CAPSULE PO SCH ×2 (09:00→20:09)
[2020-12-02] MEDS: methylPREDNISolone 40MG 1ML VIAL IV SCH (09:00)
[2020-12-02] MEDS: guaiFENesin ER 600 MG TAB PO SCH ×2 (09:00→20:09)
[2020-12-02] MEDS: MUPIROCIN 2% OINT 22 GM TUBE TOP SCH ×2 (09:00→20:16)
[2020-12-02] MEDS: MOM 30ML SUSPENSION UDC PO SCH (09:00)
[2020-12-02] MEDS: BACTRIM 160MG/800MG DS TAB PO SCH (09:00)
[2020-12-02] MEDS: ALPRAZolam 0.25 MG TAB PO SCH ×3 (09:00→20:08)
[2020-12-02] MEDS: METOPROLOL TART 50 MG TAB PO SCH ×2 (09:00→20:08)
[2020-12-02] MEDS: PANTOPRAZOLE 40MG VIAL (C9113 PER 1) IV SCH ×2 (10:25→22:04)
[2020-12-02] MEDS ORDERED: MORPHINE 2 MG/ML 1ML VIAL (J2270) IV PRN (11:00)
[2020-12-02] MEDS ORDERED: ATROPINE SULFATE 1% OP SOLN 2 ML BTL SL PRN (11:00)
[2020-12-02] MEDS ORDERED: SCOPOLAMINE 1MG TRANSDERMAL PATCH TOP PRN (11:00)
--- NOTE | 2020-12-02 13:19 | REP ---
INDICATION: SOB COMPARISON: None. TECHNIQUE: Portable AP view of the chest FINDINGS: Right-sided chest tube in stable position with very small residual right apical pneumothorax again suggested. Mediastinum, cardiac silhouette, and bilateral lung nuñez are relatively stable. Diffuse bilateral interstitial and alveolar infiltrates along with underlying chronic changes are again noted. No new acute process identified. Right PICC line with tip in the SVC unchanged. IMPRESSION: No significant change from prior examination. Very small residual right apical pneumothorax again suspected. <Electronically signed by Israel Holguin > 12/02/20 [id number]
[2020-12-02] MEDS ORDERED: METOCLOPRAMIDE INJ 10MG/2ML VIAL (J2765 PER 1) IV PRN (17:45)
[2020-12-02] MEDS: CALCIUM CARBONATE 500 MG CHEW U/D PO PRN (17:52)
[2020-12-02] MEDS: SERTRALINE HCL 25 MG TABLET PO SCH (20:09)
[2020-12-02] MEDS: LORazepam 2 MG/ML VIAL IV PRN (22:04)
[2020-12-03] MEDS: MORPHINE 10MG/0.5ML ORAL CONCENTRATE SOLUTION U/D SL PRN ×5 (03:10→18:54)
[2020-12-03] MEDS: SODIUM CHLORIDE 0.9% INJ 10 ML SYR IV SCH ×2 (05:27→17:02)
[2020-12-03] MEDS: MORPHINE 2 MG/ML 1ML VIAL (J2270) IV PRN ×6 (06:07→20:30)
[2020-12-03] MEDS: HumaLOG INSULIN (NovoLOG) PER UNIT SC SCH ×4 (07:30→20:08)
[2020-12-03] MEDS: LEVALBUTEROL 1.25 MG/0.5 ML CONCENTRATE NEB INH SCH ×4 (07:40→19:23)
[2020-12-03] MEDS: MUPIROCIN 2% OINT 22 GM TUBE TOP SCH ×2 (08:20→20:09)
[2020-12-03] MEDS: DOCUSATE SODIUM 100MG CAPSULE PO SCH ×2 (08:20→20:07)
[2020-12-03] MEDS: MOM 30ML SUSPENSION UDC PO SCH (08:20)
[2020-12-03] MEDS: guaiFENesin ER 600 MG TAB PO SCH ×2 (08:20→20:07)
[2020-12-03] MEDS: NEPHRO-VIT TAB (NEPHROCAPS) PO SCH ×2 (08:20→20:08)
[2020-12-03] MEDS: METOPROLOL TART 50 MG TAB PO SCH ×2 (08:47→20:23)
[2020-12-03] MEDS: ALPRAZolam 0.25 MG TAB PO SCH ×3 (08:47→20:24)
[2020-12-03] MEDS: ONDANSETRON 4MG/2ML VIAL IV PRN (09:12)
[2020-12-03] MEDS: LEVALBUTEROL 1.25 MG/0.5 ML CONCENTRATE NEB NEB PRN (09:12)
[2020-12-03] MEDS: PANTOPRAZOLE 40MG VIAL (C9113 PER 1) IV SCH ×2 (10:16→22:20)
[2020-12-03] MEDS: CALCIUM CARBONATE 500 MG CHEW U/D PO PRN (17:20)
[2020-12-03] MEDS: LEVEMIR (INSULIN DETEMIR) 1 UNITS/0.01ML SC SCH (20:08)
[2020-12-03] MEDS: SERTRALINE HCL 25 MG TABLET PO SCH (20:08)
[2020-12-03] MEDS: ACETAMINOPHEN TAB 650MG DOSE (2X325MG) PO PRN (20:26)
[2020-12-04] MEDS: MORPHINE 2 MG/ML 1ML VIAL (J2270) IV PRN ×4 (02:46→13:30)
[2020-12-04] MEDS: CALCIUM CARBONATE 500 MG CHEW U/D PO PRN (05:18)
[2020-12-04] MEDS: SODIUM CHLORIDE 0.9% INJ 10 ML SYR IV SCH (06:00)
[2020-12-04] MEDS: ACETAMINOPHEN TAB 650MG DOSE (2X325MG) PO PRN (06:31)
[2020-12-04] MEDS: MORPHINE 10MG/0.5ML ORAL CONCENTRATE SOLUTION U/D SL PRN ×2 (06:33→09:37)
[2020-12-04] MEDS: HumaLOG INSULIN (NovoLOG) PER UNIT SC SCH (07:30)
[2020-12-04] MEDS: LEVALBUTEROL 1.25 MG/0.5 ML CONCENTRATE NEB INH SCH ×2 (08:00→12:00)
[2020-12-04] MEDS ORDERED: ACETAMINOPHEN 325 MG/10.15 ML UDC PO PRN (08:05)
[2020-12-04] MEDS: DOCUSATE SODIUM 100MG CAPSULE PO SCH (09:00)
[2020-12-04] MEDS: ALPRAZolam 0.25 MG TAB PO SCH ×2 (09:00→09:36)
[2020-12-04] MEDS: MOM 30ML SUSPENSION UDC PO SCH (09:00)
[2020-12-04] MEDS: ONDANSETRON 4MG/2ML VIAL IV PRN (09:59)
[2020-12-04] MEDS: LORazepam 2 MG/ML VIAL IV PRN ×2 (11:41→13:48)
--- NOTE | 2020-12-04 12:03 | IPN ---
PROGRESS NOTE DATE: 12/04/2020 Senia is seen while rounding for the hospitalist. She was placed on comfort measures yesterday. She has right-sided pneumothorax secondary to bronchiolitis obliterans with necrotizing pneumonia as a consequence of COVID lung infection from August of this year. She is now on comfort measures and we expect that her life expectancy is in hours. I met with the family. They are comfortable with her care and that she is receiving adequate comfort measures. I met with the nurse who went through the med list, making sure she is only receiving treatments that would be directed towards her comfort.
--- NOTE | 2020-12-04 16:33 | DSES ---
DISCHARGE SUMMARY DATE OF ADMISSION: 09/01/2020 DATE OF DISCHARGE: 12/04/2020 PRINCIPAL DIAGNOSIS: Acute on chronic respiratory failure secondary to bronchiolitis obliterans and COVID pneumonia. SECONDARY DIAGNOSES: 1. Acute respiratory distress syndrome (ARDS). 2. Right pneumothorax requiring chest tube insertion November 05 with bronchopleural fistula. 3. Necrotizing pneumonia, right lung. 4. Right pneumothorax with chest tube placement November 30. 5. Type 2 diabetes. 6. Atrial fibrillation. 7. Obstructive sleep apnea. 8. Incarcerated right lower abdominal surgical hernia on admission, status post surgical repair 09/02/2020. 9. Asthma. 10. Chronic anxiety. 11. Morbid obesity complicating care. HISTORY: Senia Kumari was admitted in August with COVID pneumonia. She also had a strangulated lower abdominal incisional hernia. I assumed her care a few hours before she , and at that time she was already on comfort measures only status. My involvement in the case was essentially comforting the family, ensure that her comfort needs were met. Her details of her hospitalization are extensive in medical records and will not be repeated here. Patient on comfort measures in intensive care unit on 12/04/2020.
--- NOTE | 2020-12-05 04:44 | IPNPDOC ---
Text Note Date of Service The patient was seen on 12/03/20. NOTE Subjective: Patient was seen and examined this morning at bedside. Family at bedside. Family staking turns to visit Miss Jordan. BiPAP is now only used as needed currently on Vapotherm. She denies being in pain currently feels her pain is well managed. Objective: Constitutional: Awake today able to answer questions. In no apparent distress. obese. Appears ill, weak. ENT: Sclera are clear. Mucosa is moist. Respiratory: Lungs diminished breath sounds. Vapotherm in place. Right-sided chest tube in place. Cardiovascular: Tachycardia regular rhythm. Heart sounds are distant due to large body habitus Gastrointestinal: Abdomen is soft, non distended, non tender, BS present. Musculoskeletal: No lower extremity edema. Skin: No visible rashes Assessment/plan: Mrs. Jordan is a 50 year old female with PMH of morbid obesity s/p gastric sleeve surgery in 07/2019, a history of DM that had resolved post bariatric surgery and asthma, who presented to [facility] ED with right lower abdominal pain , nausea and vomiting and was admitted for strangulated lower abdominal incisional hernia with small bowel obstruction on 09/01/20 and then incidentally found to be COVID positive. 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 She did well initially then started decompensating from her COVID infection on 09/05/20 with increasing oxygen requirements. She developed ARDS with acute hypoxic respiratory failure and ultimately was intubated on 09/15/20. She was successfully extubated to BIPAP on 09/23/20. Hospital course was further complicated by development of right necrotizing pneumonia. 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 She remains persistently hypoxic due to multiple issues : ILD - post COVID, right sided lung destruction from compl icated necrotizing pneumonia. Another R sided pneumothorax s/p chest tube on 11/30/20 and tube replacement on 12/01/20. 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 Her prognosis is poor. on 12/02/20 she was transitioned to CAP JEWEL PLATE ASSEMBLER status, decision made by the patient. Hospice was consulted. CAP JEWEL PLATE ASSEMBLER meds ordered. Plan to discontinue all none CAP JEWEL PLATE ASSEMBLER meds gradually once family members has seen patient per her wishes. Discontinuation of chest tube and bipap is per pulm. Dr Chan suspects Ms Jordan will likely with both in place. BiPAP is now only as needed. They'll be kept in for now for comfort. # Right-sided pneumothorax: Seen on chest CT 11/30/2020, Chest tube placed by Dr Pena and again replaced on 12/01/20. BiPAP use per pulm, now PRN. 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 Her prognosis is poor. # Persistent hypoxemic respiratory failure: Initially due to 2/2 ARDS 2/2 COVID- 19 and now post COVID interstitial lung disease, fibrosis, Right sided lung destruction from necrotizing pneumonia. Bronchiolitis obliterans per pulm. # S/P Right sided necrotizing pneumonia: complicated by right pneumothorax and bronchopleural fistula. Finished 14 days of cefepime # Tachycardia: likely related to her hypoxia and acute illness. # Leukocytosis: likely reactive. resolved. Ceftriaxone stopped. # s/p Acute COVID-19 :Patient has completed treatment with tocilizumab, Remdesivir, and decadron. COVID on 10/28/20 negative. # DM2:in the setting of steroid use. Levemir and lispro. Will be stopped soon. # Persistent Sinus Tachycardia: Likely secondary to hypoxia, severe deconditioning. Last Echocardiogram from october shows diastolic dys, moderate pu lmonary hypertension, normal EF. Continue Lopressor 50mg BID. cardizem. Stopped soon once family visits. # Transient Atrial fibrillation with RVR in September 2020. resolved. # JAQUELINE: Use of CPAP/biPAP per pulm given pneumothorax. Discontinuation per pulm # Incarcerated right lower abdominal Incisional Hernia on admission: s/p surgical correction on 09/02/2020. healed surgical incisions. # Physical Deconditioning/Debility: Patient has an extended hospital stay of over 1 month with critical illness. She is severely debilitated. # Constipation Bowel regimen in place # Asthma: continue levoalbuterol, solumedrol. # Anxiety. xanax PRN atarax prn. IV Ativan as needed # H/o Morbid obesity s/p gastric sleeve surgery in 07/2019. Complicates care # DVT prophylaxis: CAP JEWEL PLATE ASSEMBLER lovenox stopped. Patient is transitioning to comfort measures only plan is to discontinue remainder of life-prolonging medications once the remainder of her family sees her tomorrow. Comfort measures medications already ordered. Hospice has been consulted. A [facility] Hospitalist VSLuis, I+O VSLuis I+O Vital Signs Date Time Temp Pulse Resp B/P (MAP) Pulse Ox O2 Delivery O2 Flow Rate FiO2 12/03/20 11:48 30 12/03/20 11:15 88 HVNI-Vapotherm 40.0 100 12/02/20 18:10 148 12/02/20 08:01 97.0 108/58 (75) I&O- Last 24 Hours up to 6 AM 12/03/20 06:00 Intake Total 840 ml Output Total 185 ml Balance 655 ml CAMILA HEDRICK MD Dec 03, 2020 13:32
== END 2020-12-04 15:36 | disposition expired | DRG 221 ==
LOC: M ED 08:22 → M ED INP 15:27 → ENRESERV 16:10 → M 4MAIN 17:20 → M ICU 09-06 22:10 → M PCU 10-21 13:59 → M ICU 11-05 22:37 → M PCU 11-07 02:31 → M ICU 11-30 08:59
PROVIDERS: ADMIT Internal Medicine; ATTEND Family Medicine
PROC: 0DB84ZZ Excision of Small Intestine, Percutaneous Endoscopic Approach (ICD-10-PCS; 2020-09-02)
PROC: 0WUF4JZ Supplement Abdominal Wall with Synthetic Substitute, Percutaneous Endoscopic Approach (ICD-10-PCS; principal; 2020-09-02 12:30)
PROC: 02HV33Z Insertion of Infusion Device into Superior Vena Cava, Percutaneous Approach (ICD-10-PCS; 2020-09-10)
PROC: 5A1955Z Respiratory Ventilation, Greater than 96 Consecutive Hours (ICD-10-PCS; 2020-09-17)
PROC: 0W9930Z Drainage of Right Pleural Cavity with Drainage Device, Percutaneous Approach (ICD-10-PCS; 2020-11-05)
PROC: 02HV33Z Insertion of Infusion Device into Superior Vena Cava, Percutaneous Approach (ICD-10-PCS; 2020-11-05)
PROC: 5A2204Z Restoration of Cardiac Rhythm, Single (ICD-10-PCS; 2020-12-01)
DX: K43.1 Incisional hernia with gangrene (principal); J86.0 Pyothorax with fistula; I26.99 Other pulmonary embolism without acute cor pulmonale; J96.01 Acute respiratory failure with hypoxia; J12.82 Pneumonia due to coronavirus disease 2019; G72.81 Critical illness myopathy; J85.0 Gangrene and necrosis of lung; G72.0 Drug-induced myopathy; J15.9 Unspecified bacterial pneumonia; J80 Acute respiratory distress syndrome; U07.1 COVID-19; J84.9 Interstitial pulmonary disease, unspecified; Z68.41 Body mass index [BMI] 40.0-44.9, adult; J81.1 Chronic pulmonary edema; E46 Unspecified protein-calorie malnutrition; J42 Unspecified chronic bronchitis; E66.01 Morbid (severe) obesity due to excess calories; D68.69 Other thrombophilia; B37.0 Candidal stomatitis; I27.20 Pulmonary hypertension, unspecified; I48.91 Unspecified atrial fibrillation; I48.92 Unspecified atrial flutter; J93.83 Other pneumothorax; J45.909 Unspecified asthma, uncomplicated; E87.6 Hypokalemia; R31.9 Hematuria, unspecified; J98.11 Atelectasis; L27.0 Generalized skin eruption due to drugs and medicaments taken internally; H65.90 Unspecified nonsuppurative otitis media, unspecified ear; Z51.5 Encounter for palliative care